=== PATIENT | male | born 1930 | race Two or more races ===

== ENCOUNTER 2019-06-15 16:29 | Inpatient (IN) | payer MEDICARE, MEDICAID ==
[~2019-06-15] VITALS: Ht 157.5 cm; Wt 60.3 kg
--- NOTE | 2019-06-15 16:39 | Emergency Room Report ---
History of Present Illness General Chief Complaint: Upper Respiratory Illness Source: Patient, EMS Present Illness HPI Disclaimer: Please note that this report is being documented using DRAGON technology. This can lead to erroneous entry secondary to incorrect interpretation by the dictating instrument. HPI: 88-year-old male history of dementia and CHF presents from longterm [facility] for evaluation of fever and shortness of breath. Has been febrile with low-grade temperatures for the past 2 days. He was given Tylenol prior to arrival. The patient is somewhat confused though oriented to self. He is complaining of chest congestion and tightness. Denies vomiting or diarrhea or abdominal pain. He was found saturating 89% with some labored breathing on EMS arrival. They put him on 2 L nasal cannula bring him to 94% with improvement in his respirations. He is full code PMH: CHF, dementia PSH: Reviewed Allergies: None listed Social Hx: None listed Allergies: Coded Allergies: No Known Allergies (Unverified , 06/15/19) Review of Systems All Other Systems: limited - Due to dementia Physical Exam General: Awake and somewhat confused, no acute distress HEENT: NC/AT. EOMI. Cardiovascular: RRR. S1 and S2 normal. No murmur appreciated Resp: Mild tachypnea, normal work of breathing. On 2 L nasal cannula. No cough Abdomen: Abdomen is soft, nondistended. Nontender Skin: Intact. No abrasions, laceration or rash over the exposed skin MSK: Normal tone and bulk. Moving all extremities. No obvious deformity. Neuro: Awake and somewhat confused. Poor historian Medical Decision Making Diagnostic Impression: Primary Impression: Suspected 2019 novel coronavirus infection Additional Impressions: Pneumonia Elevated troponin Elevated LFTs ER Course This an 88-year-old male presenting from [place] [id number] for evaluation of 2 days fever and shortness of breath. He was found hypoxic by EMS though improved on 2 L nasal cannula. His breathing is nonlabored at this time. Differential includes was not limited to viral syndrome, pneumonia, COVID-19, influenza, bronchitis, COPD exacerbation, CHF exacerbation, upper respiratory infection. Based on the patient's presenting signs, symptoms and physical exam findings, the patient has been screened and is suspected to have COVID-19. Will send COVID swab, blood cultures, start IV fluids, maintain patient on oxygen, send broad labs including cardiac enzymes and perform chest x-ray and EKG. Patient will be kept in isolation over concerns of COVID-19. Laboratory Tests Test 06/15/19 16:55 06/15/19 17:00 White Blood Count 8.2 K/UL (4.8-10.8) Red Blood Count 4.85 M/UL (4.70-6.10) Hemoglobin 14.9 G/DL (14.2-18.0) Hematocrit 45.5 % (42.0-52.0) Mean Corpuscular Volume 94 FL (80-99) Mean Corpuscular Hemoglobin 30.7 PG (27.0-31.0) Mean Corpuscular Hemoglobin Concent 32.7 G/DL (32.0-36.0) Red Cell Distribution Width 14.1 % (11.6-14.8) Platelet Count 233 K/UL (150-450) Mean Platelet Volume 6.3 FL (6.5-10.1) L Neutrophils (%) (Auto) 84.1 % (45.0-75.0) H Lymphocytes (%) (Auto) 12.1 % (20.0-45.0) L Monocytes (%) (Auto) 3.4 % (1.0-10.0) Eosinophils (%) (Auto) 0.0 % (0.0-3.0) Basophils (%) (Auto) 0.3 % (0.0-2.0) Sodium Level 140 MMOL/L (136-145) Potassium Level 3.6 MMOL/L (3.5-5.1) Chloride Level 105 MMOL/L (98-107) Carbon Dioxide Level 25 MMOL/L (21-32) Anion Gap 11 mmol/L (5-15) Blood Urea Nitrogen 18 mg/dL (7-18) Creatinine 1.0 MG/DL (0.55-1.30) Estimated Glomerular Filtration Rate > 60 mL/min (>60) Glucose Level 202 MG/DL (74-106) H Lactic Acid Level 3.10 mmol/L (0.4-2.0) H Calcium Level 8.2 MG/DL (8.5-10.1) L Total Bilirubin Pending Aspartate Amino Transferase (AST) Pending Alanine Aminotransferase (ALT) Pending Alkaline Phosphatase Pending Total Creatine Kinase Pending Creatine Kinase MB Pending Troponin I 0.152 ng/mL (0.000-0.056) Pro-B-Type Natriuretic Peptide Pending Total Protein Pending Albumin Pending Globulin Pending Arterial Blood pH 7.462 (7.350-7.450) Arterial Blood Partial Pressure CO2 34.7 mmHg (35.0-45.0) L Arterial Blood Partial Pressure O2 76.4 mmHg (75.0-100.0) Arterial Blood HCO3 24.2 mmol/L (22.0-26.0) Arterial Blood Oxygen Saturation 96.1 % (95-100) Arterial Blood Base Excess 1.0 (-2-2) Al Test Pending EKG Diagnostic Results EKG Time: 17:21 Rate: normal Rhythm: NSR ST Segments: no acute changes Other Impression Sinus rhythm, left axis deviation. Occasional PACs. T wave inversions, no ST segment changes Rhythm Strip Diag. Results Rhythm Strip Time: 17:21 EP Interpretation: yes Rate: 88 Rhythm: NSR, other - Occasional PAC Chest X-Ray Diagnostic Results Chest X-Ray Diagnostic Results : Chest X-Ray Ordered: Yes # of Views/Limited/Complete: 1 View Indication: Shortness of Breath EP Interpretation: Yes Interpretation: other - Consolidations in the left lower lobe may represent an early pneumonia. No effusion. Impression: Other - Possible pneumonia left lung Electronically Signed by: Electronically signed by Dr. Ric Alvarado Reevaluation Time: 17:38 Reevaluation Impression Chest x-ray concerning for possible left-sided pneumonia. Patient treated with ceftriaxone azithromycin. EKG shows nonspecific T wave changes and occasional PAC but no gross ST segment changes. Troponin slightly elevated as is lactic acid. Renal function within normal limits. Blood gas within normal limits. No respiratory distress. LFTs and alkaline phosphatase are elevated. Ultrasound of the abdomen is ordered and pending. Patient require admission. He will be kept in isolation for suspected COVID-19 infection. Will admit to his PMD, Dr. Malhotra. Disposition: ADMITTED INPATIENT Condition: Serious Ric Alvarado MD Jun 15, 2019 16:39
[2019-06-15] MEDS ORDERED: NAMENDA10 MG ORAL (16:42)
[2019-06-15] MEDS ORDERED: DOCUSATE SODIU100 MG ORAL (16:42)
[2019-06-15] MEDS ORDERED: DONEPEZIL HCL5 M2 ORAL (16:42)
--- NOTE | 2019-06-15 16:45 | NUR ---
ED Nurse Note: Pt was brought in by ambulance from [facility] d/t fever x 2 days and SOB started today. Per EMS pt was satting at 89% on RA; placed on 2 LPM via NC. Pt is AOx1, luxembourger in speaking noted with episodes of confusion. Per report pt, has hx of CHF and dementia. Pt's FULL CODE. Temp at triage was 99.8F. Placed on bed, hooked to keg raiser satting at 94% on 4LPM. Established IV site, obtained blood, COVID19 swabs, sent to labs. Safety measures met; initiated droplet isolation precautions. Will continue to monitor.
[2019-06-15 17:00] VITALS: BP 112/62
[2019-06-15 17:27] LABS: ANION GAP 11 mmol/L (5-15); BASOPHILS % (AUTO) 0.3 % (0.0-2.0); BLOOD UREA NITROGEN 18 mg/dL (7-18); CALCIUM 8.2 MG/DL (8.5-10.1); CARBON DIOXIDE 25 MMOL/L (21-32); CHLORIDE 105 MMOL/L (98-107); HEMATOCRIT 45.5 % (42.0-52.0); HEMOGLOBIN 14.9 G/DL (14.2-18.0); LYMPHOCYTES % (AUTO) 12.1 % (20.0-45.0); MEAN CORPUSCULAR VOLUME 94 FL (80-99); MONOCYTES % (AUTO) 3.4 % (1.0-10.0); NEUTROPHILS % (AUTO) 84.1 % (45.0-75.0); PLATELET COUNT 233 K/UL (150-450); POTASSIUM 3.6 MMOL/L (3.5-5.1); RED BLOOD COUNT 4.85 M/UL (4.70-6.10); RED CELL DISTRIBUTION WIDTH 14.1 % (11.6-14.8); SODIUM 140 MMOL/L (136-145); WHITE BLOOD COUNT 8.2 K/UL (4.8-10.8)
--- NOTE | 2019-06-15 17:36 | Diagnostic Imaging Report ---
Indication: Shortness of breath Technique: One view of the chest Comparison: none Findings: Reticular infiltrates are seen in the periphery of the right midlung and possibly in the retrocardiac region. Mildly prominent markings are seen in the right midlung periphery, of uncertain significance. The heart is borderline enlarged with a left ventricular hypertrophy configuration. The aorta is tortuous and ectatic. Impression: Peripheral reticular infiltrates in the left lung, nonspecific and likely inflammatory or chronic process among other Few prominent linear are seen peripherally in the right midlung, significance uncertain
[2019-06-15 17:43] LABS: ALANINE AMINOTRANSFERASE 129 U/L (12-78); ALBUMIN 2.3 G/DL (3.4-5.0); ALBUMIN/GLOBULIN RATIO 0.4 (1.0-2.7); ALKALINE PHOSPHATASE 125 U/L (46-116); ASPARTATE AMINO TRANSFERASE 171 U/L (15-37); BILIRUBIN,TOTAL 0.5 MG/DL (0.2-1.0); CREATINE KINASE 460 U/L (26-308)
[2019-06-15] MEDS ORDERED: cefTRIAXone 1 GM in NS 55 ML IVPB ONE (18:00)
[2019-06-15] MEDS ORDERED: Azithromycin 500 MG in NS 275 ML IV ONE (18:00)
--- NOTE | 2019-06-15 18:15 | NUR ---
ED Nurse Note: Unable to obtain urine specimen via straight cath nor verdugo cath at this time; Dr. Alvarado aware.
--- NOTE | 2019-06-15 18:20 | NUR ---
ED Nurse Note: Rectal temp at 98.7F.
--- NOTE | 2019-06-15 18:25 | NUR ---
ED Nurse Note: Initiated skin assessment, sacral area, bilateral heels; upper and lower extremities clean and intact, no pressure injuries/redness noted.
--- NOTE | 2019-06-15 18:30 | NUR ---
ED Nurse Note: MRSA, CRE/VRE swabs & LACTIC REFLEX sent.
[2019-06-15 18:52] VITALS: BP 148/100
--- NOTE | 2019-06-15 19:00 | NUR ---
ED Nurse Note: Hand off given to MANOLO Chun for continuity of care.
--- NOTE | 2019-06-15 19:13 | NUR ---
ED Nurse Note: Received report from MANOLO Dela Cruz. Patient resting in bed in stable condition.
[2019-06-15 19:18] VITALS: BP 123/78
--- NOTE | 2019-06-15 19:20 | NUR ---
ED Nurse Note: ERMD aware of two previous attempts from previous shift to collect urine via urinary catheter unsuccessful.
--- NOTE | 2019-06-15 21:08 | Pulmonology Progress Note ---
Assessment/Plan Assessment/Plan Pulmonary Consultation HPI: Patient is a 88-year-old male history of Dementia, Congestive Heart Failure , admitted from [facility] facility with Pneumonia, R/o COVID 19, noted to have fever and shortness of breath, chest congestion and tightness for 2 days. Noted to be confused in the ED. Has been febrile with low-grade temperatures for the past 2 days. Denies vomiting or diarrhea or abdominal pain. O2 saturation improved on 2 L to 94% (88% RA). PMH: Dementia, Congestive Heart Failure Social Hx: Shelter Resident FHx: NC Allergies: No Known Allergies All Other Systems: limited - AMS Physical Exam Vital signs noted General: Awake and somewhat confused, no acute distress HEENT: NC/AT. EOMI. Cardiovascular: RRR. S1 and S2 normal. No murmur appreciated Resp: Mild tachypnea, normal work of breathing. On 2 L nasal cannula. No cough Abdomen: Abdomen is soft, nondistended. Nontender Skin: Intact. No abrasions, laceration or rash noted MSK: Normal tone and bulk. Moving all extremities. No obvious deformity. Neuro: Awake and somewhat confused. Poor historian. No focal signs Impression: Pneumonia Suspected 2019 novel coronavirus infection Elevated troponin Elevated LFTs Lymphopenia Dementia Congestive Heart Failure Shelter Resident Plan Continue IV Ceftriaxone and Azithromycin O2 PRN Albuterol MDI PRN PPX - Lovenox ASA Monitor labs Add Hydroxychloroquine if COVID positive and cleared by Cardiology Monitor cultures/viral studies Ultrasound of the abdomen pending. Isolation for suspected COVID-19 infection Laboratory Tests Test 06/15/19 16:55 06/15/19 17:00 White Blood Count 8.2 K/UL (4.8-10.8) Red Blood Count 4.85 M/UL (4.70-6.10) Hemoglobin 14.9 G/DL (14.2-18.0) Hematocrit 45.5 % (42.0-52.0) Mean Corpuscular Volume 94 FL (80-99) Mean Corpuscular Hemoglobin 30.7 PG (27.0-31.0) Mean Corpuscular Hemoglobin Concent 32.7 G/DL (32.0-36.0) Red Cell Distribution Width 14.1 % (11.6-14.8) Platelet Count 233 K/UL (150-450) Mean Platelet Volume 6.3 FL (6.5-10.1) L Neutrophils (%) (Auto) 84.1 % (45.0-75.0) H Lymphocytes (%) (Auto) 12.1 % (20.0-45.0) L Monocytes (%) (Auto) 3.4 % (1.0-10.0) Eosinophils (%) (Auto) 0.0 % (0.0-3.0) Basophils (%) (Auto) 0.3 % (0.0-2.0) Sodium Level 140 MMOL/L (136-145) Potassium Level 3.6 MMOL/L (3.5-5.1) Chloride Level 105 MMOL/L (98-107) Carbon Dioxide Level 25 MMOL/L (21-32) Anion Gap 11 mmol/L (5-15) Blood Urea Nitrogen 18 mg/dL (7-18) Creatinine 1.0 MG/DL (0.55-1.30) Estimated Glomerular Filtration Rate > 60 mL/min (>60) Glucose Level 202 MG/DL (74-106) H Lactic Acid Level 3.10 mmol/L (0.4-2.0) H Calcium Level 8.2 MG/DL (8.5-10.1) L Total Bilirubin Pending Aspartate Amino Transferase (AST) Pending Alanine Aminotransferase (ALT) Pending Alkaline Phosphatase Pending Total Creatine Kinase Pending Creatine Kinase MB Pending Troponin I 0.152 ng/mL (0.000-0.056) Pro-B-Type Natriuretic Peptide Pending Total Protein Pending Albumin Pending Globulin Pending Arterial Blood pH 7.462 (7.350-7.450) Arterial Blood Partial Pressure CO2 34.7 mmHg (35.0-45.0) L Arterial Blood Partial Pressure O2 76.4 mmHg (75.0-100.0) Arterial Blood HCO3 24.2 mmol/L (22.0-26.0) Arterial Blood Oxygen Saturation 96.1 % (95-100) Arterial Blood Base Excess 1.0 (-2-2) Al Test Pending EKG Rate: normal Rhythm: NSR ST Segments: no acute changes Sinus rhythm, left axis deviation. Occasional PACs. T wave inversions, no ST segment changes Chest X-Ray: Consolidations in the left lower lobe may represent an early pneumonia. No effusion. . Subjective ROS Limited/Unobtainable: No Respiratory: Reports: shortness of breath Allergies: Coded Allergies: No Known Allergies (Unverified , 06/15/19) Objective Last 24 Hour Vital Signs Date Time Temp Pulse Resp B/P (MAP) Pulse Ox O2 Delivery O2 Flow Rate FiO2 06/15/19 19:18 82 28 123/78 100 Nasal Cannula 3.0 06/15/19 18:52 98.7 84 27 148/100 96 Nasal Cannula 3.0 06/15/19 17:00 99.9 62 29 112/62 95 Nasal Cannula 2.0 06/15/19 17:00 76 29 Nasal Cannula 2.0 06/15/19 16:32 99.9 76 29 112/62 (79) 95 Nasal Cannula 2.0 Microbiology Date/Time Source Procedure Growth Status 06/15/19 18:20 Rectum Received Laboratory Tests 06/15/19 16:55: White Blood Count 8.2, Red Blood Count 4.85, Hemoglobin 14.9, Hematocrit 45.5, Mean Corpuscular Volume 94, Mean Corpuscular Hemoglobin 30.7, Mean Corpuscular Hemoglobin Concent 32.7, Red Cell Distribution Width 14.1, Platelet Count 233, Mean Platelet Volume 6.3L, Neutrophils (%) (Auto) 84.1H, Lymphocytes (%) (Auto) 12.1L, Monocytes (%) (Auto) 3.4, Eosinophils (%) (Auto) 0.0, Basophils (%) (Auto ) 0.3, Sodium Level 140, Potassium Level 3.6, Chloride Level 105, Carbon Dioxide Level 25, Anion Gap 11, Blood Urea Nitrogen 18, Creatinine 1.0, Estimat Glomerular Filtration Rate > 60, Glucose Level 202H, Lactic Acid Level 3.10H, Calcium Level 8.2L, Total Bilirubin 0.5, Aspartate Amino Transf (AST/SGOT) 171H , Alanine Aminotransferase (ALT/SGPT) 129H, Alkaline Phosphatase 125H, Total Creatine Kinase 460H, Creatine Kinase MB 1.0, Creatine Kinase MB Relative Index 0.2, Troponin I 0.152H, Pro-B-Type Natriuretic Peptide 1467H, Total Protein 7.9 , Albumin 2.3L, Globulin 5.6, Albumin/Globulin Ratio 0.4L, Lipase 215 06/15/19 17:00: Arterial Blood pH 7.462H, Arterial Blood Partial Pressure CO2 34.7L, Arterial Blood Partial Pressure O2 76.4, Arterial Blood HCO3 24.2, Arterial Blood Oxygen Saturation 96.1, Arterial Blood Base Excess 1.0, Al Test [Pending] 06/15/19 18:30: Lactic Acid Level 2.80H Andrew Diaz MD Jun 15, 2019 21:08
--- NOTE | 2019-06-15 22:03 | NUR ---
ED Nurse Note: Ultrasound at bedside.
--- NOTE | 2019-06-15 22:53 | Diagnostic Imaging Report ---
EXAM: US Abdomen Limited, Right Upper Quadrant CLINICAL HISTORY: ABD PAIN TECHNIQUE: Real-time ultrasound of the right upper quadrant with image documentation. COMPARISON: No relevant prior studies available. FINDINGS: Liver: Unremarkable. No mass. Gallbladder: The gallbladder is filled with stones. No mucosal thickening or pericholecystic free fluid. Negative Ignacio sign. Common bile duct: The common bile duct measures 4 mm. No stones. No dilation. Pancreas: The pancreas is largely obscured by bowel gas. Right kidney: Unremarkable. No stones. No solid mass. No hydronephrosis. IMPRESSION: The gallbladder is filled with stones. Negative Ignacio's sign suggests against acute cholecystitis.
--- NOTE | 2019-06-16 00:10 | NUR ---
ED Nurse Note: Report given to MANOLO Vela in telemetry.
[2019-06-16] MEDS ORDERED: Acetaminophen 500mg (ES) tab ORAL PRN (00:15)
--- NOTE | 2019-06-16 00:28 | NUR ---
TRANSFER TO FLOOR: Patient transferred to telemetry as ordered, per ERMD. Report given to MANOLO Vela. Patient has no belongings. Patient transferred to telemetry floor via gurney on ACLS protocol with monitoring engineer accompanied by 1 RN and wheel alignment technician in stable condition.
[2019-06-16 00:35] VITALS: BP 148/74
--- NOTE | 2019-06-16 00:45 | NUR ---
NURSE NOTES: Pt received from MANOLO Chun via [place] from ER alert and oriented to name only, primarily Georgian-speaking. On 2L NC, saturating at 96% with no acute s/s of distress noted. Skin intact, no signs of pressure injury noted. IV site asymptomatic and patent on L wrist 20g, saline lock. No belongings noted with patient.
--- NOTE | 2019-06-16 01:15 | NUR ---
NURSE NOTES: RN received phone call from Dr. Diaz for orders. Per ER, patient was in soft bilateral wrist restraints due to patient attempting to pull lines. RN to assess patient for need for restraints on unit. Per Dr. Diaz, page if need for restraints. - Ceftriaxone 1 gm IVPB daily - Azithromycin 500 mg IVPB daily - albuterol MDI 2 puffs q6h PRN for SOB - Lovenox 40 mg SQ daily for DVT proph - Aspirin 81 mg PO daily - Place on droplet and contact iso for rule out COVID - Speech Eval in AM - D5NS a 50 ml/hr - Maintain O2 between 90-96% - Place on aspiration precautions - Tylenol 650 mg q6h for mild pain or fever - Zofran 4 mg q6h PRN for n/v Addendum: 06/16/19 at 0310 by Reggie Peralta RN Per Dr. Diaz, continue home meds - Donepezil 5 mg PO daily, Namenda 10 mg PO daily, and Colace 100 mg PO daily.
[2019-06-16] MEDS ORDERED: Albuterol 90mcg Inhaler 8gm INH PRN (03:00)
[2019-06-16 04:00] VITALS: BP 143/76
[2019-06-16] MEDS: D5NS 1,000 ML IV SCH (04:43)
--- NOTE | 2019-06-16 05:09 | NUR ---
NURSE NOTES: Patient found attempting to pull IV line on left arm and pulling at seamless tube roller with leg dangling off of bed during rounds. Informed Dr. Diaz who agreed with order for soft bilateral wrist restraints. Will continue to monitor for patient safety.
[2019-06-16 05:26] LABS: BASOPHILS % (AUTO) 0.3 % (0.0-2.0); HEMATOCRIT 42.3 % (42.0-52.0); HEMOGLOBIN 14.3 G/DL (14.2-18.0); LYMPHOCYTES % (AUTO) 15.2 % (20.0-45.0); MEAN CORPUSCULAR VOLUME 90 FL (80-99); MONOCYTES % (AUTO) 2.3 % (1.0-10.0); NEUTROPHILS % (AUTO) 82.1 % (45.0-75.0); PLATELET COUNT 249 K/UL (150-450); RED CELL DISTRIBUTION WIDTH 12.6 % (11.6-14.8); WHITE BLOOD COUNT 10.5 K/UL (4.8-10.8)
[2019-06-16 05:46] LABS: ANION GAP 11 mmol/L (5-15); BLOOD UREA NITROGEN 15 mg/dL (7-18); CARBON DIOXIDE 27 MMOL/L (21-32); CHLORIDE 108 MMOL/L (98-107); CREATININE 0.9 MG/DL (0.55-1.30); POTASSIUM 3.4 MMOL/L (3.5-5.1); SODIUM 146 MMOL/L (136-145)
--- NOTE | 2019-06-16 07:18 | NUR ---
HAND-OFF: Report given to MANOLO Chin. Plan of care endorsed.
--- NOTE | 2019-06-16 07:20 | NUR ---
NURSE NOTES: Received report from Reggie/RN, Patient is awake, lying semi-garcia, resting comfortably. On 2L Nasal canula, No distress/SOB noted. vehicle monitor technician in place. IV on Left FA, Saline locked, patent, and asymptomatic. Bed in low position and locked, Bad alarm engaged, side- rails up x3, Call light within reach, Encouraged to use call light when needed. Will continue plan of care.
[2019-06-16 08:00] VITALS: BP 118/70
[2019-06-16] MEDS: Aspirin Baby 81mg ORAL SCH (09:35)
[2019-06-16] MEDS: Memantine 10mg tab ORAL SCH ×2 (09:35→18:14)
[2019-06-16] MEDS: Donepezil 5mg Tab ORAL SCH (09:36)
[2019-06-16] MEDS: Docusate 100mg cap ORAL SCH (09:36)
[2019-06-16] MEDS: Enoxaparin 40mg Inj SUBQ SCH (09:37)
--- NOTE | 2019-06-16 09:37 | NUR ---
CASE MANAGEMENT: INITIAL REVIEW 88 YO M MICHELL FROM [facility] CC: MILA SATTING 89% ON RA PMHx: DEMENTIA. CHF. SI: HYPOXIA T 99.9 HR 76 RR 29 B/P 112/62 SATS 95% ON 2L/NC LABS: GLU 202 CA 8.2 AST 171 ALT 129 ALP 125 TOTAL CK 460 BNP 1467 ABGs: PH 7.462 PCO2 34.7 IS: CXR Impression: Peripheral reticular infiltrates in the left lung, nonspecific and likely inflammatory or chronic process among other. Few prominent linear are seen peripherally in the right midlung, significance uncertain ABD US IMPRESSION: The gallbladder is filled with stones. Negative Ignacio's sign suggests against acute cholecystitis. EKG Sinus rhythm, left axis deviation. Occasional PACs. T wave inversions, no ST segment changes. PATIENT ADMITTED TO TELE 06/15/2019 @ 4827 DCP: [facility] PLAN OF CARE: MYCHAL LYNN OBTAINED ISOLATION PRECAUTIONS ST EVAL NON VIOLENT RESTRAINTS Addendum: 06/16/19 at 0947 by Zofia Spann CM INTERQUAL MET
--- NOTE | 2019-06-16 10:57 | NUR ---
ST NOTES: REFERRED FOR SWALLOW EVAL BY DR PINEDA (PRIMARY DR BUSH), SEE REPORT. DYSPHAGIA AND ASPIRATION RISK FACTORS FOR THIS 88 Y.O. ALBANIAN-SPEAKING (? COUNTRY) MALE: ACUTE ISSUES: R/O COVID 19, PNA (L-SIDED ONE NOTE CXR SAID INFILTRATES RIGHT MID LUNG), CHEST CONGESTION/PAIN FEVER, DESATURATION TO 88% PRIOR TO ADMIT NOW ON 2 LITERS 02 NC (RESP RATE 20 AND SP02 96%) AND HAS USE OF ACCESSORY MUSCLES AND SWALLOW RESPIRATIONS, HIGH BP RELEVANT MEDS NOW ALBUTEROL H/O DEMENTIA (ON ARICEPT/NAMENDA NOW D/C THESE MEDS SNF AND STARTED SEROQUEL), PSYCH ISSUES (MOOD D/O, MDD AND REFUSING MED TX), SUBSTANCE ABUSE, CHF. POLST OK TUBE FEEDINGS LT IF NEEDS, AT SNF ON A REGULAR DIET TYPE AND TEXTURE AND THIN LIQUIDS. NOW NPO EXCEPT MEDS AND ICE CHIPS. PER MANOLO COFFMAN, PATIENT REFUSED CRUSHED MEDS WITH APPLESAUCE. PER CHRIS GONZALEZ, PT REFUSED PO TRIALS EVEN WHEN SHE SPOKE ALBANIAN TO PATIENT. PATIENT IS ALERT BUT POOR FOLLOWING ORAL COMMANDS. HAS MOST DENTITION, SOME MISSING NEEDS ORAL CARE. SPEECH IS DYSARTHRIC AT TIMES (LESS PRECISE AND VOICE IS HOARSE) BUT CAN EXPRESS SOME NEEDS INTELLIGIBLY IN ALBANIAN. CONFUSED, NO RESPONSE OR UNRELIABLE WITH SIMPLE YES/NO QUESTIONS. 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 GIVEN THIN LIQUIDS VIA STRAW/CUP PATIENT REFUSED TRIAL. TOOK TSP X 5 WITH MUCH ENCOURAGEMENT AND ONLY WHEN OFFERED JUICE (REFUSED WATER). SWALLOWED AFTER 2 SECONDS, NO COUGH NO OVERT ASPIRATION. REFUSED NECTAR THICK LIQUID TRIALS GIVEN PUDDING INITIALLY REFUSED, LATER ACCEPTED TSP (X10) WITH MUCH ENCOURAGEMENT. SWALLOWED AFTER CHEWING BOLUS UNNECESSARILY FOR 10 SECONDS, SWALLOWED WITH FAIR HYOLARYNGEAL EXCURSION, NO ORAL RESIDUE, NO OVERT ASPIRATION. HAS SILENT ASPIRATION RISK DUE TO DEMENTIA/NEURO DX AND HAS A CURRENT PNA. ASP RISK ALSO SINCE HE IS DEPENDENT ON SOMEONE TO FEED HIM (HAS WRIST RESTRAINTS) ASP RISK DUE TO PRIOR DESAT TO 88% PRIOR TO ADMIT, NOW RESP RATE GOOD 20 BPM AND SP02 GOOD 96% ON 2 LITERS NC DURING PO. USES ACCESSORY MUSCLES AND HAS SHALLOW RESPIRATIONS, WOULD NOT COUGH TO COMMAND AND DID NOT OBSERVE SPON COUGH BUT VOICE IS HOARSE ? WHY. RISK FOR POOR TO NO INTAKE DUE TO REFUSING PO AND SLOW INTAKE. RECOMMENDATIONS: CONSIDER MOD BARIUM SWALLOW STUDY WHEN R/O COVID 19 TO FURTHER ASSESS SWALLOW, DETERMINE SILENT ASP RISK, AND ATTEMPT TRIAL TX. IF PO GIVEN FOR QUALITY OF LIFE, CONSIDER LIQUIFIED PUREED LIKE NECTAR THICK LIQUIDS TSP ONLY OK TO HAVE THIN LIQUIDS TSP ONLY (REFUSED THICKENED LIQUIDS) WITH OTHER ASPIRATION PRECAUTIONS AND ONE TO ONE FEEDING. SEND HIGH CARMINE SUP AND DIET TYPE PER RD (WAS ON REGULAR TYPE DIET AT [facility]). SKILLED DYSPHAGIA MANAGEMENT AND TX AND COG-COM EVAL/TX EDUCATED/TRAINED RN/PICCOLOIST IN POSTED ASPIRATION PRECAUTIONS. CONSIDER ENT TO CHECK VOCAL FOLDS (NOT IP ENT NOT COMING IN FOR NONURGENT PROCEDURES) TRY TO CHECK FOR SMOKING HX (PT DOES NOT ANSWER QUESTION NOW)
[2019-06-16 12:00] VITALS: BP 120/69
[2019-06-16 16:00] VITALS: BP 123/70
--- NOTE | 2019-06-16 17:15 | Consultation ---
DATE OF CONSULTATION: 06/16/2019 CONSULTING PHYSICIAN: Perry Quiroga M.D. CHIEF COMPLAINT: Abnormal liver function tests. HISTORY OF PRESENT ILLNESS: Most of history per chart. An 88-year-old patient coming from [facility] with fever and shortness of breath. Patient with COVID, currently in isolation. Patient had abnormal liver function tests, so GI consult requested for evaluation. PAST MEDICAL HISTORY: 1. History of dementia. 2. CHF. 3. Hypertension. 4. BPH. 5. Constipation. ALLERGIES: No known drug allergies. MEDICATIONS: Please see medication reconciliation list. SOCIAL HISTORY: Patient lives in [facility]. No history of tobacco, alcohol, or drug abuse. PAST SURGICAL HISTORY: Unknown. FAMILY HISTORY: Noncontributory. REVIEW OF SYSTEMS: Unable to obtain. PHYSICAL EXAMINATION: VITAL SIGNS: Temperature 99.2, pulse 87, respirations 20, blood pressure is 143/76. HEENT: Normocephalic and atraumatic. Sclerae anicteric. NECK: Supple. No evidence of obvious lymphadenopathy. CARDIOVASCULAR: Regular rate and rhythm. Plus S1 and S2. LUNGS: Decreased breath sounds bilaterally and diffusely on supine exam. ABDOMEN: Soft, nontender. No rebound. No guarding. No peritoneal sign. EXTREMITIES: No cyanosis. No clubbing. No edema. LABORATORY DATA: White count is 10, hemoglobin 14, hematocrit 42, platelet count is 249. Chem-7 sodium 146, potassium 3.4, BUN is 15, creatinine 0.9. Troponin mildly elevated at 0.152. AST 171, ALT of 129, alkaline phosphatase of 125, bilirubin of 0.5. IMAGING STUDIES: Abdominal ultrasound showed multiple gallstones, but no common bile duct dilatation. No cholecystitis. ASSESSMENT AND PLAN: An 88-year-old patient with CHF, admitted to hospital with shortness of breath, question of COVID positive with abnormal liver function tests. Abnormal liver function tests can be secondary to either COVID infection. Other possibility would be CHF exacerbation causing hepatic congestion. Other possibility would be given elevated troponin, acute IN causing transaminitis. I doubt that patient has acute cholecystitis since that patient does not have any white count nor on the abdominal ultrasound has a gallbladder wall thickening. Our plan will be to repeat the liver function tests for tomorrow. Order hepatitis panel. Antibiotics per ID. Follow up Cardiology recommendation. We will follow on daily basis and make further recommendation as needed. I want to thank Dr. Malhotra for this kind referral. Perry Quiroga M.D. DR: CHRISTIANO JOB#: [id number] CC: Gorge Malhotra M.D.; Fax#: [phone]
[2019-06-16] MEDS: Azithromycin 500 MG in D5W 275 ML IV SCH (18:14)
--- NOTE | 2019-06-16 19:50 | NUR ---
NURSE NOTES: Received report from MANOLO Schaeffer. Patient is on bed, awake, alert and oriented x 1-2. Patient is on regular diet, liquid pureed like soup, nectar thick and ensure TID. bus driver/monitor is on shows sinus rhythm and no signs and symptoms of respiratory distress noted at this time. Patient is connected to 2Lpm via nasal cannula, with no complaints made at the moment. IV site is on left forearm g-20 running fluid of D5NSS @ 50 cc/hour that is intact and asymptomatic. Patient is bedrest with bilateral soft wrist restraints. Safety measures are in placed, call light and bedside table within reach, side rails up x 2, bed alarm is on. Bed in low and locked position. Instructed to call for any assistance needed. Will continue plan of care.
--- NOTE | 2019-06-16 19:51 | NUR ---
HAND-OFF: Report given to Meri/RN, Patient is in stable condition.Endorsed plan of care.
[2019-06-16 20:00] VITALS: BP 149/78
[2019-06-16] MEDS: cefTRIAXone 1 GM in D5W 55 ML IVPB SCH (20:21)
--- NOTE | 2019-06-16 21:49 | Cardiology Progress Note ---
Assessment/Plan Assessment/Plan The patient is seen and examined, full consult note is dictated. Objective Last 24 Hour Vital Signs Date Time Temp Pulse Resp B/P (MAP) Pulse Ox O2 Delivery O2 Flow Rate FiO2 06/16/19 16:00 80 06/16/19 16:00 96.7 88 18 123/70 (87) 98 06/16/19 12:00 98.6 67 19 120/69 (86) 98 06/16/19 12:00 71 06/16/19 09:00 Nasal Cannula 2.0 06/16/19 08:00 72 06/16/19 08:00 96.6 80 18 118/70 (86) 96 06/16/19 04:00 99.2 87 20 143/76 (98) 96 06/16/19 04:00 71 06/16/19 00:58 Nasal Cannula 2.0 06/16/19 00:43 92 06/16/19 00:38 98.7 73 32 138/64 100 Nasal Cannula 3.0 06/16/19 00:35 98.8 78 20 148/74 (98) 96 Intake and Output 06/15/19 06/16/19 19:00 07:00 Intake Total 1330 ml Balance 1330 ml IV Total 1330 ml # Voids 1 Laboratory Tests Test 06/16/19 04:00 White Blood Count 10.5 K/UL (4.8-10.8) Red Blood Count 4.70 M/UL (4.70-6.10) Hemoglobin 14.3 G/DL (14.2-18.0) Hematocrit 42.3 % (42.0-52.0) Mean Corpuscular Volume 90 FL (80-99) Mean Corpuscular Hemoglobin 30.5 PG (27.0-31.0) Mean Corpuscular Hemoglobin Concent 33.8 G/DL (32.0-36.0) Red Cell Distribution Width 12.6 % (11.6-14.8) Platelet Count 249 K/UL (150-450) Mean Platelet Volume 5.9 FL (6.5-10.1) L Neutrophils (%) (Auto) 82.1 % (45.0-75.0) H Lymphocytes (%) (Auto) 15.2 % (20.0-45.0) L Monocytes (%) (Auto) 2.3 % (1.0-10.0) Eosinophils (%) (Auto) 0.0 % (0.0-3.0) Basophils (%) (Auto) 0.3 % (0.0-2.0) Sodium Level 146 MMOL/L (136-145) H Potassium Level 3.4 MMOL/L (3.5-5.1) L Chloride Level 108 MMOL/L (98-107) H Carbon Dioxide Level 27 MMOL/L (21-32) Anion Gap 11 mmol/L (5-15) Blood Urea Nitrogen 15 mg/dL (7-18) Creatinine 0.9 MG/DL (0.55-1.30) Estimat Glomerular Filtration Rate > 60 mL/min (>60) Glucose Level 121 MG/DL (74-106) H Calcium Level 8.0 MG/DL (8.5-10.1) L Microbiology Date/Time Source Procedure Growth Status 06/15/19 18:20 Rectum Received Rolf Moreno MD Jun 16, 2019 21:49
--- NOTE | 2019-06-16 22:30 | NUR ---
NURSE NOTES: Relayed result of Covid test to Dr. Moshe Betancourt, no orders was made yet.
--- NOTE | 2019-06-16 23:30 | NUR ---
NURSE NOTES: Troponin result 0.[address] Moreno thru text, no orders was made. Dr. Moreno states to continue present management.
[2019-06-17] VITALS: BP 141/83
--- NOTE | 2019-06-17 00:08 | Pulmonology Progress Note ---
Assessment/Plan Assessment/Plan Pulmonary Progress Note HPI: Patient is a 88-year-old male history of Dementia, Congestive Heart Failure , admitted from residential facility with Pneumonia, R/o COVID 19, noted to have fever and shortness of breath, chest congestion and tightness for 2 days. Noted to be confused in the ED. Has been febrile with low-grade temperatures for the past 2 days. Denies vomiting or diarrhea or abdominal pain. O2 saturation improved on 2 L to 94% (88% RA). Patient seen on 06/16/2019 PMH: Dementia, Congestive Heart Failure Social Hx: Penitentiary Resident FHx: [place] Allergies: No Known Allergies All Other Systems: limited - AMS Physical Exam Vital signs noted General: Awake and somewhat confused, no acute distress HEENT: NC/AT. EOMI. Cardiovascular: RRR. S1 and S2 normal. No murmur appreciated Resp: Mild tachypnea, normal work of breathing. On 2 L nasal cannula. No cough Abdomen: Abdomen is soft, nondistended. Nontender Skin: Intact. No abrasions, laceration or rash noted MSK: Normal tone and bulk. Moving all extremities. No obvious deformity. Neuro: Awake and somewhat confused. Poor historian. No focal signs Impression: Pneumonia Suspected 2019 novel coronavirus infection Elevated troponin Elevated LFTs Lymphopenia Dementia Congestive Heart Failure Penitentiary Resident Plan Continue IV Ceftriaxone and Azithromycin O2 PRN Albuterol MDI PRN PPX - Lovenox ASA Monitor labs Add Hydroxychloroquine if COVID positive and cleared by Cardiology Monitor cultures/viral studies Ultrasound of the abdomen pending. Isolation for suspected COVID-19 infection Laboratory Tests Test 06/15/19 16:55 06/15/19 17:00 White Blood Count 8.2 K/UL (4.8-10.8) Red Blood Count 4.85 M/UL (4.70-6.10) Hemoglobin 14.9 G/DL (14.2-18.0) Hematocrit 45.5 % (42.0-52.0) Mean Corpuscular Volume 94 FL (80-99) Mean Corpuscular Hemoglobin 30.7 PG (27.0-31.0) Mean Corpuscular Hemoglobin Concent 32.7 G/DL (32.0-36.0) Red Cell Distribution Width 14.1 % (11.6-14.8) Platelet Count 233 K/UL (150-450) Mean Platelet Volume 6.3 FL (6.5-10.1) L Neutrophils (%) (Auto) 84.1 % (45.0-75.0) H Lymphocytes (%) (Auto) 12.1 % (20.0-45.0) L Monocytes (%) (Auto) 3.4 % (1.0-10.0) Eosinophils (%) (Auto) 0.0 % (0.0-3.0) Basophils (%) (Auto) 0.3 % (0.0-2.0) Sodium Level 140 MMOL/L (136-145) Potassium Level 3.6 MMOL/L (3.5-5.1) Chloride Level 105 MMOL/L (98-107) Carbon Dioxide Level 25 MMOL/L (21-32) Anion Gap 11 mmol/L (5-15) Blood Urea Nitrogen 18 mg/dL (7-18) Creatinine 1.0 MG/DL (0.55-1.30) Estimated Glomerular Filtration Rate > 60 mL/min (>60) Glucose Level 202 MG/DL (74-106) H Lactic Acid Level 3.10 mmol/L (0.4-2.0) H Calcium Level 8.2 MG/DL (8.5-10.1) L Total Bilirubin Pending Aspartate Amino Transferase (AST) Pending Alanine Aminotransferase (ALT) Pending Alkaline Phosphatase Pending Total Creatine Kinase Pending Creatine Kinase MB Pending Troponin I 0.152 ng/mL (0.000-0.056) Pro-B-Type Natriuretic Peptide Pending Total Protein Pending Albumin Pending Globulin Pending Arterial Blood pH 7.462 (7.350-7.450) Arterial Blood Partial Pressure CO2 34.7 mmHg (35.0-45.0) L Arterial Blood Partial Pressure O2 76.4 mmHg (75.0-100.0) Arterial Blood HCO3 24.2 mmol/L (22.0-26.0) Arterial Blood Oxygen Saturation 96.1 % (95-100) Arterial Blood Base Excess 1.0 (-2-2) Al Test Pending EKG Rate: normal Rhythm: NSR ST Segments: no acute changes Sinus rhythm, left axis deviation. Occasional PACs. T wave inversions, no ST segment changes Chest X-Ray: Consolidations in the left lower lobe may represent an early pneumonia. No effusion. . Subjective ROS Limited/Unobtainable: No Allergies: Coded Allergies: No Known Allergies (Unverified , 06/15/19) Objective Last 24 Hour Vital Signs Date Time Temp Pulse Resp B/P (MAP) Pulse Ox O2 Delivery O2 Flow Rate FiO2 06/16/19 20:00 70 06/16/19 20:00 97.9 94 20 149/78 (101) 94 06/16/19 16:00 80 06/16/19 16:00 96.7 88 18 123/70 (87) 98 06/16/19 12:00 98.6 67 19 120/69 (86) 98 06/16/19 12:00 71 06/16/19 09:00 Nasal Cannula 2.0 06/16/19 08:00 72 06/16/19 08:00 96.6 80 18 118/70 (86) 96 06/16/19 04:00 99.2 87 20 143/76 (98) 96 06/16/19 04:00 71 06/16/19 00:58 Nasal Cannula 2.0 06/16/19 00:43 92 06/16/19 00:38 98.7 73 32 138/64 100 Nasal Cannula 3.0 06/16/19 00:35 98.8 78 20 148/74 (98) 96 Intake and Output 06/16/19 06/17/19 19:00 07:00 Intake Total 120 ml Output Total 1800 ml Balance -1680 ml Intake Oral 120 ml Output Urine Total 1800 ml # Voids 3 Microbiology Date/Time Source Procedure Growth Status 06/15/19 18:20 Rectum Received Laboratory Tests 06/16/19 04:00: White Blood Count 10.5, Red Blood Count 4.70, Hemoglobin 14.3, Hematocrit 42.3, Mean Corpuscular Volume 90, Mean Corpuscular Hemoglobin 30.5, Mean Corpuscular Hemoglobin Concent 33.8, Red Cell Distribution Width 12.6, Platelet Count 249, Mean Platelet Volume 5.9L, Neutrophils (%) (Auto) 82.1H, Lymphocytes (%) (Auto) 15.2L, Monocytes (%) (Auto) 2.3, Eosinophils (%) (Auto) 0.0, Basophils (%) (Auto ) 0.3, Sodium Level 146H, Potassium Level 3.4L, Chloride Level 108H, Carbon Dioxide Level 27, Anion Gap 11, Blood Urea Nitrogen 15, Creatinine 0.9, Estimat Glomerular Filtration Rate > 60, Glucose Level 121H, Calcium Level 8.0L 06/16/19 22:25: Troponin I 0.122H Current Medications Medications (Trade) Dose Ordered Sig/Kaylan Route PRN Reason Start Time Stop Time Status Last Admin Dose Admin Acetaminophen (Tylenol) 500 mg Q6H PRN ORAL For Pain 06/16/19 00:15 07/16/19 00:14 Acetaminophen (Tylenol) 650 mg Q6H PRN ORAL For Headache 06/16/19 03:00 07/16/19 02:59 Albuterol Sulfate (Proventil MDI) 2 puff Q6H PRN INH Shortness of Breath 06/16/19 03:00 09/14/19 02:59 Aspirin (ASA) 81 mg DAILY ORAL 06/16/19 09:00 07/31/19 08:59 06/16/19 09:35 Azithromycin 500 mg/Dextrose 275 ml @ 275 mls/hr Q24HRS IV 06/16/19 18:00 06/22/19 18:59 06/16/19 18:14 Ceftriaxone Sodium 1 gm/ Dextrose 55 ml @ 110 mls/hr Q24H IVPB 06/16/19 19:00 06/23/19 18:59 06/16/19 20:21 Dextrose/Sodium Chloride 1,000 ml @ 50 mls/hr Q20H IV 06/16/19 04:00 07/16/19 03:59 06/16/19 04:43 Docusate Sodium (Colace) 100 mg DAILY ORAL 06/16/19 09:00 07/16/19 08:59 06/16/19 09:36 Donepezil HCl (Aricept) 5 mg DAILY ORAL 06/16/19 09:00 07/16/19 08:59 06/16/19 09:36 Enoxaparin Sodium (Lovenox) 40 mg DAILY SUBQ 06/16/19 09:00 09/14/19 08:59 06/16/19 09:37 Furosemide (Lasix) 20 mg DAILY IV 06/16/19 22:00 07/16/19 21:59 06/16/19 22:12 Memantine (Namenda) 10 mg TWICE A DAY ORAL 06/16/19 09:00 07/16/19 08:59 06/16/19 18:14 Ondansetron HCl (Zofran) 4 mg Q6H PRN IVP Nausea & Vomiting 06/16/19 03:00 07/16/19 02:59 Andrew Diaz MD Jun 17, 2019 00:07
[2019-06-17 04:00] VITALS: BP 133/84
[2019-06-17 04:50] LABS: BASOPHILS % (AUTO) 0.2 % (0.0-2.0); EOSINOPHILS % (AUTO) 0.1 % (0.0-3.0); HEMOGLOBIN 14.5 G/DL (14.2-18.0); LYMPHOCYTES % (AUTO) 12.5 % (20.0-45.0); MEAN CORPUSCULAR VOLUME 89 FL (80-99); MONOCYTES % (AUTO) 3.2 % (1.0-10.0); NEUTROPHILS % (AUTO) 84.1 % (45.0-75.0); PLATELET COUNT 263 K/UL (150-450); RED BLOOD COUNT 4.74 M/UL (4.70-6.10); RED CELL DISTRIBUTION WIDTH 12.5 % (11.6-14.8); WHITE BLOOD COUNT 10.4 K/UL (4.8-10.8)
[2019-06-17 05:11] LABS: ALANINE AMINOTRANSFERASE 81 U/L (12-78); ALBUMIN 2.1 G/DL (3.4-5.0); ALBUMIN/GLOBULIN RATIO 0.4 (1.0-2.7); ALKALINE PHOSPHATASE 99 U/L (46-116); ANION GAP 8 mmol/L (5-15); ASPARTATE AMINO TRANSFERASE 101 U/L (15-37); BILIRUBIN,TOTAL 0.6 MG/DL (0.2-1.0); BLOOD UREA NITROGEN 13 mg/dL (7-18); CALCIUM 8.5 MG/DL (8.5-10.1); CARBON DIOXIDE 29 MMOL/L (21-32); CHLORIDE 106 MMOL/L (98-107); CREATININE 0.9 MG/DL (0.55-1.30); POTASSIUM 3.3 MMOL/L (3.5-5.1); SODIUM 142 MMOL/L (136-145)
[2019-06-17] MEDS: D5NS 1,000 ML IV SCH ×2 (05:52→22:22)
--- NOTE | 2019-06-17 07:11 | General Progress Note ---
Assessment/Plan Assessment/Plan: 1. History of dementia. 2. CHF. 3. Hypertension. 4. BPH. 5. Constipation. 6. elevated LFTS 7. AMI improving LFTS neg hepatitis panel fu cardiology repeat labs in am Subjective ROS Limited/Unobtainable: No Allergies: Coded Allergies: No Known Allergies (Unverified , 06/15/19) Objective Last 24 Hour Vital Signs Date Time Temp Pulse Resp B/P (MAP) Pulse Ox O2 Delivery O2 Flow Rate FiO2 06/17/19 04:00 98.1 74 24 133/84 (100) 100 06/17/19 04:00 71 06/17/19 00:00 98.1 111 20 141/83 (102) 95 06/17/19 00:00 42 06/16/19 21:00 Nasal Cannula 2.0 06/16/19 20:04 94 Nasal Cannula 2.0 28 06/16/19 20:00 70 06/16/19 20:00 97.9 94 20 149/78 (101) 94 06/16/19 16:00 80 06/16/19 16:00 96.7 88 18 123/70 (87) 98 06/16/19 12:00 98.6 67 19 120/69 (86) 98 06/16/19 12:00 71 06/16/19 09:00 Nasal Cannula 2.0 06/16/19 08:00 72 06/16/19 08:00 96.6 80 18 118/70 (86) 96 Intake and Output 06/16/19 06/17/19 19:00 07:00 Intake Total 170 ml 1250 ml Output Total 1800 ml 1500 ml Balance -1630 ml -250 ml Intake Oral 120 ml 100 ml IV Total 50 ml 450 ml Other 700 ml Output Urine Total 1800 ml 1500 ml # Voids 3 Laboratory Tests 06/16/19 22:25: Troponin I 0.122H 06/17/19 04:00: White Blood Count 10.4, Red Blood Count 4.74, Hemoglobin 14.5, Hematocrit 42.0, Mean Corpuscular Volume 89, Mean Corpuscular Hemoglobin 30.6, Mean Corpuscular Hemoglobin Concent 34.5, Red Cell Distribution Width 12.5, Platelet Count 263, Mean Platelet Volume 5.5L, Neutrophils (%) (Auto) 84.1H, Lymphocytes (%) (Auto) 12.5L, Monocytes (%) (Auto) 3.2, Eosinophils (%) (Auto) 0.1, Basophils (%) (Auto ) 0.2, Sodium Level 142, Potassium Level 3.3L, Chloride Level 106, Carbon Dioxide Level 29, Anion Gap 8, Blood Urea Nitrogen 13, Creatinine 0.9, Estimat Glomerular Filtration Rate > 60, Glucose Level 157H, Calcium Level 8.5, Total Bilirubin 0.6, Aspartate Amino Transf (AST/SGOT) 101H, Alanine Aminotransferase (ALT/SGPT) 81H, Alkaline Phosphatase 99, Total Protein 7.5, Albumin 2.1L, Globulin 5.4, Albumin/Globulin Ratio 0.4L, Hepatitis A IgM Antibody [Pending], Hepatitis B Surface Antigen [Pending], Hepatitis B Core IgM Antibody [Pending], Hepatitis C Antibody [Pending] Height (Feet): 5 Height (Inches): 2.00 Weight (Pounds): 135 General Appearance: no apparent distress EENT: PERRL/EOMI Neck: supple Cardiovascular: normal rate Respiratory/Chest: decreased breath sounds Abdomen: normal bowel sounds, non tender, soft Extremities: non-tender Perry Quiroga MD Jun 17, 2019 07:11
--- NOTE | 2019-06-17 07:12 | NUR ---
HAND-OFF: Report given to MANOLO Schaeffer. Patient is on bed, awake on stable condition. RN made aware of covid result. Plan of care endorsed.
--- NOTE | 2019-06-17 07:16 | NUR ---
NURSE NOTES: Received report from Meri/RN, Patient is awake, lying semi-garcia, resting comfortably. On 2L Nasal canula, No distress/SOB noted. monitor technician in place. IV on Left FA, patent, and asymptomatic. Condom cath draining well to gravity. Bed in low position and locked, Bad alarm armed, side- rails up x3, Call light within reach, Encouraged to use call light when needed. Will continue plan of care.
[2019-06-17 08:00] VITALS: BP 122/73
[2019-06-17] MEDS: Memantine 10mg tab ORAL SCH ×2 (08:16→18:18)
[2019-06-17] MEDS: Aspirin Baby 81mg ORAL SCH (08:17)
[2019-06-17] MEDS: Docusate 100mg cap ORAL SCH (08:17)
[2019-06-17] MEDS: Donepezil 5mg Tab ORAL SCH (08:17)
[2019-06-17] MEDS: Enoxaparin 40mg Inj SUBQ SCH (08:18)
--- NOTE | 2019-06-17 08:43 | Consultation ---
DATE OF CONSULTATION: 06/16/2019 INFECTIOUS DISEASES CONSULTATION CONSULTING PHYSICIAN: Benigno Betancourt MD. PRIMARY ATTENDING PHYSICIAN: Gorge Malhotra MD. REASON FOR CONSULTATION: Pneumonia, likely COVID-19 disease. HISTORY OF PRESENT ILLNESS: This is an 88-year-old male admitted yesterday from a senior care facility because of fever, shortness of breath. The patient had low-grade fever for two days, chest congestion, tightness, hypoxemia with O2 saturation of 89, but improved with oxygen via nasal cannula. The patient has dementia, is not a source of history. PAST MEDICAL HISTORY: Significant for dementia, CHF, history of rib fracture, history of elevated transaminase. ALLERGIES: No known drug allergies. MEDICATIONS: Getting ceftriaxone, azithromycin, Lovenox, aspirin, Colace, Aricept, memantine, albuterol Tylenol, Zofran. SOCIAL HISTORY: senior living resident, legally . No other history is obtained by the patient. PHYSICAL EXAMINATION: VITAL SIGNS: Temperature 98.6, temperature at the time of admission was 99.9. Pulse 67, blood pressure 120/59. GENERAL APPEARANCE: No acute distress, confused on restraints. HEAD AND NECK: [place] conjunctiva. HEART: Normal rate. LUNGS: Clear. ABDOMEN: Soft and nontender. EXTREMITIES: No edema. LABORATORY AND DIAGNOSTIC DATA: WBC 10.5, hemoglobin 13.3, hematocrit 42.3, and platelets is 249. Sodium 146, potassium 3.4, chloride 108, bicarb 7, BUN 15, creatinine 0.9, glucose 121. Lactic acid was 3.1 but decreased to 2.8. Blood gas showed pCO2 34.7, pO2 26.4, O2 saturation 96.1. Chest x-ray, reticular infiltrate in left lung Abdominal ultrasound showed gallbladder is filled with stones. Negative Ignacio sign. IMPRESSION: Pneumonia, likely atypical. We will try to rule out COVID-19. Cholelithiasis and elevated transaminase level, acidosis, dementia with behavioral problem. RECOMMENDATION: We will continue with ceftriaxone and Zithromax. We will follow up COVID-19 tests. We will repeat chest x-ray. If the condition become worse, we will start hydroxychloroquine. At the end of my exam, I thank Dr. Malhotra, for involving me in the care of this patient. Benigno Betancourt M.D. DR: Roslyn JOB#: [id number] CC: MARTIN
--- NOTE | 2019-06-17 08:43 | History and Physical Report ---
DATE OF ADMISSION: 06/15/2019 HISTORY OF PRESENT ILLNESS: The patient comes in because of suspected left-sided pneumonia. The patient also had troponin elevated at 0.15. Antibiotic is given and noticed respiratory distress. He is on 2 liters oxygen in the emergency room and these were also elevated. Admitted for hypoxia and pneumonia. The patient is relatively a poor historian. The patient came in has dementia and congestive heart failure and came from the facility because of borderline hypoxia as well as cough and some labored breathing. He was on 2 liters of nasal cannula and was found to have pneumonia. PAST MEDICAL HISTORY: Significant for dementia and constipation. ALLERGIES: No known allergies. MEDICATIONS: Docusate, benazepril and Namenda. FAMILY HISTORY: Noncontributory. SOCIAL HISTORY: Denies history of smoking. Denies history of alcohol or illicit drugs. REVIEW OF SYSTEMS: HEENT: Denies headaches. RESPIRATORY: Reports shortness of breath CARDIOVASCULAR: Denies chest pain. GASTROINTESTINAL: Denies nausea, vomiting or diarrhea. EXTREMITIES: Denies pain. CENTRAL NERVOUS SYSTEM: Denies change in speech pattern. PHYSICAL EXAMINATION: VITAL SIGNS: Temperature is 99.2, pulse is 87, blood pressure is 142/76. HEENT: PERRLA. NECK: Supple. No adenopathy. CHEST: Clear to auscultation. CARDIOVASCULAR: Regular rate and rhythm. No murmurs or extra sounds. GASTROINTESTINAL: Soft, nontender, nondistended. No organomegaly. EXTREMITIES: No edema. Reflexes on both sides. LABORATORY DATA: Laboratory monzon WBC of 8.2, hemoglobin 14.9, platelets 233. Sodium 146, potassium of 3.4, BUN of 15, creatinine 0.9. Chest x-ray showed presence of reticular infiltrates in the left lung, nonspecific. ASSESSMENT AND PLAN: Respiratory insufficiency, rule out pneumonia, hypoxia and cough and shortness of breath at the facility. I have consulted Dr. Benigno Betancourt, Dr. Locke, Dr. Diaz, and Dr. Moreno for the workup of the elevated liver function tests according to the ER doctor as well as for the borderline elevation troponin. Antibiotics per Dr. Benigno Betancourt. We will follow the patient closely. Gorge Malhotra M.D. DR: Angelika JOB#: [id number] CC:
--- NOTE | 2019-06-17 09:45 | Consultation ---
DATE OF CONSULTATION: 06/16/2019 CARDIOLOGY CONSULTATION CONSULTING PHYSICIAN: Rolf Moreno MD. REFERRING PHYSICIAN: Gorge Malhotra MD. REASON FOR CONSULTATION: Management of congestive heart failure. HISTORY OF PRESENT ILLNESS: The patient is a very unfortunate 88-year-old gentleman with prior history of dementia as well as congestive heart failure, who resides in a alf facility and was brought in for evaluation of fever and shortness of breath. The patient has been having low-grade fever in the past couple of days treated with Tylenol. The patient at the time of arrival to the hospital appeared to be altered. He also had complaints of chest congestion as well as chest tightness. At the time of arrival to the hospital, O2 saturation was 89% and he was having labored breathing; however, on placement of 2 L oxygen, his O2 saturation improved to 94%. Upon arrival to this facility, blood pressure was 112/62 mmHg and heart rate was 76. He was tachypneic with respiratory rate of 29 and having a low-grade fever of 99.9 degrees Fahrenheit. A 12-lead electrocardiogram was significant for sinus rhythm with T-wave inversions in leads V2 and V3 suggestive of possible anterior or anteroseptal wall ischemia. Chest x-ray was significant for cardiomegaly and presence of reticular infiltration in the periphery of the right mid lung and retrocardiac region, likely inflammatory and chronic processes. The patient was suspected with COVID-19 infection and in fact, his result came out to be positive. Cardiology consultation was made at the request of Dr. Malhotra for management of congestive heart failure. PAST MEDICAL HISTORY: Congestive heart failure and dementia. REVIEW OF SYSTEMS: HEENT: Denies any headache, diplopia, or blurred vision. CONSTITUTIONAL: Positive for fever and generalized weakness. CARDIOVASCULAR: Positive for chest pain and shortness of breath as mentioned above. Denies any PND, orthopnea, or leg swelling. PULMONARY: Positive for cough, chest congestion, and chest tightness, but no hemoptysis. GASTROINTESTINAL: Denies any nausea, vomiting, diarrhea, constipation, abdominal pain, or GI bleed. GENITOURINARY: Denies any hematuria, dysuria, or incontinence. NEUROLOGIC: Denies any motor dysfunction, sensory deficit, or altered speech. PAST SURGICAL HISTORY: None. ALLERGIES: No known drug allergies. SOCIAL HISTORY: No history of tobacco, alcohol, or illicit drug use. PHYSICAL EXAMINATION: VITAL SIGNS: Blood pressure initially was 112/62 mmHg, heart rate of 73, temperature 99.9 degrees Fahrenheit, O2 saturation of 95% on 2 L nasal cannula, and respiratory rate of 29. GENERAL: The patient is a very unfortunate 88-year-old gentleman who appears to be confused, in no acute respiratory distress. HEENT: Atraumatic and normocephalic. Anicteric. Pupils are equal, round, and reactive to light and accommodation. Extraocular muscles intact. NECK: JVP is less than 5 cm. No carotid bruit. Carotid upstroke is 2+ bilaterally. CARDIOVASCULAR: Normal S1 and S2. Regular rate and rhythm. No murmurs, gallops, or rubs. PMI is at fourth intercostal space at midclavicular line. LUNGS: Diminished breath sounds in both bases with associated crackles. ABDOMEN: Soft, nontender, and nondistended. No hepatosplenomegaly. Positive bowel sounds. EXTREMITIES: No evidence of edema, clubbing, or cyanosis. LABORATORY FINDINGS: WBC is 8.2, hemoglobin of 14.9, hematocrit of 45.5%, and platelet count of 233,000. Sodium was 140, potassium was 3.6, chloride 105, bicarbonate 25, BUN 18, creatinine 1.0, glucose is 202. Lactic acid was 3.1. Calcium was 8.2. Troponin I was 0.15. Brain-natriuretic peptide was 1467. Both AST and ALT elevated at 171 and 129 respectively. ASSESSMENT AND PLAN: The patient is a very unfortunate 88-year-old gentleman, seen in Cardiology consultation. 1. Dyspnea with associated chest pain. Chest x-ray finding is mostly consistent with acute congestive heart failure, also in view of elevated proBNP at 1467. I would like to start the patient on Lasix 20 mg IV push daily and watch his creatinine throughout this hospitalization. A 2D echocardiography has also been ordered. 2. Possible [id number] myocardial infarction or elevated troponin I level could be secondary to necrosis that is seen in congestive heart failure. 3. The patient requires to be having DVT prophylaxis. 4. Elevated transaminase. I would like to thank, Dr. Malhotra, for the courtesy of this consultation. Rolf Moreno M.D. DR: JUAN J JOB#: [id number] CC:
--- NOTE | 2019-06-17 11:22 | NUR ---
CASE MANAGEMENT:REVIEW 06/17/19 SI: COVID 19 PNEUMONIA 97.4 71 21 122/73 92% ON 2L/NC K-3.3 GLUCOSE+157 IS: IV LASIX QD IV ROCEPHIN Q24 IV AZITHROMYCIN Q24 IVF@50/HR LOVENOX SQ QD ASA PO QD ARICEPT PO QD : NOW ON TELEMETRY DCP: FROM [facility]
[2019-06-17 12:00] VITALS: BP 136/70
--- NOTE | 2019-06-17 12:35 | Infectious Diseases Prog Note ---
Assessment/Plan Assessment/Plan IMPRESSION: COIVD19 Pneumonia, Cholelithiasis and elevated transaminase level, acidosis, dementia with behavioral problem. RECOMMENDATION: We will continue with ceftriaxone and Zithromax. We will repeat COVID19 tests. We will repeat chest x-ray. If the condition become worse, we will start hydroxychloroquine. Subjective ROS Limited/Unobtainable: Yes Constitutional: Denies: fever Respiratory: Denies: shortness of breath, dry cough, productive cough Allergies: Coded Allergies: No Known Allergies (Unverified , 06/15/19) Objective Vital Signs Last 24 Hour Vital Signs Date Time Temp Pulse Resp B/P (MAP) Pulse Ox O2 Delivery O2 Flow Rate FiO2 06/17/19 09:00 Nasal Cannula 2.0 06/17/19 08:00 60 06/17/19 08:00 97.4 71 21 122/73 (89) 92 06/17/19 07:00 98 Nasal Cannula 2.0 28 06/17/19 04:00 98.1 74 24 133/84 (100) 100 06/17/19 04:00 71 06/17/19 00:00 98.1 111 20 141/83 (102) 95 06/17/19 00:00 42 06/16/19 21:00 Nasal Cannula 2.0 06/16/19 20:04 94 Nasal Cannula 2.0 28 06/16/19 20:00 70 06/16/19 20:00 97.9 94 20 149/78 (101) 94 06/16/19 16:00 80 06/16/19 16:00 96.7 88 18 123/70 (87) 98 Height (Feet): 5 Height (Inches): 2.00 Weight (Pounds): 135 General Appearance: no acute distress HEENT: mucous membranes moist Respiratory/Chest: lungs clear Cardiovascular: normal rate Abdomen: soft, non tender Extremities: no edema Neurologic/Psychiatric: alert Microbiology Date/Time Source Procedure Growth Status 06/15/19 16:55 Nasopharynx Coronavirus COVID-19 PCR (SHAKILA) - Final Complete 06/15/19 18:20 Rectum - Final NO CARBAPENEM-RESISTANT ENTEROBACTERI... Complete 06/15/19 18:20 Rectum VRE Culture - Final NO VANCOMYCIN RESISTANT ENTEROCOCCUS ... Complete Laboratory Tests Test 06/16/19 22:25 06/17/19 04:00 Troponin I 0.122 ng/mL (0.000-0.056) White Blood Count 10.4 K/UL (4.8-10.8) Red Blood Count 4.74 M/UL (4.70-6.10) Hemoglobin 14.5 G/DL (14.2-18.0) Hematocrit 42.0 % (42.0-52.0) Mean Corpuscular Volume 89 FL (80-99) Mean Corpuscular Hemoglobin 30.6 PG (27.0-31.0) Mean Corpuscular Hemoglobin Concent 34.5 G/DL (32.0-36.0) Red Cell Distribution Width 12.5 % (11.6-14.8) Platelet Count 263 K/UL (150-450) Mean Platelet Volume 5.5 FL (6.5-10.1) L Neutrophils (%) (Auto) 84.1 % (45.0-75.0) H Lymphocytes (%) (Auto) 12.5 % (20.0-45.0) L Monocytes (%) (Auto) 3.2 % (1.0-10.0) Eosinophils (%) (Auto) 0.1 % (0.0-3.0) Basophils (%) (Auto) 0.2 % (0.0-2.0) Sodium Level 142 MMOL/L (136-145) Potassium Level 3.3 MMOL/L (3.5-5.1) L Chloride Level 106 MMOL/L (98-107) Carbon Dioxide Level 29 MMOL/L (21-32) Anion Gap 8 mmol/L (5-15) Blood Urea Nitrogen 13 mg/dL (7-18) Creatinine 0.9 MG/DL (0.55-1.30) Estimat Glomerular Filtration Rate > 60 mL/min (>60) Glucose Level 157 MG/DL (74-106) H Calcium Level 8.5 MG/DL (8.5-10.1) Total Bilirubin 0.6 MG/DL (0.2-1.0) Aspartate Amino Transf (AST/SGOT) 101 U/L (15-37) H Alanine Aminotransferase (ALT/SGPT) 81 U/L (12-78) H Alkaline Phosphatase 99 U/L (46-116) Total Protein 7.5 G/DL (6.4-8.2) Albumin 2.1 G/DL (3.4-5.0) L Globulin 5.4 g/dL Albumin/Globulin Ratio 0.4 (1.0-2.7) L Hepatitis A IgM Antibody Pending Hepatitis B Surface Antigen Pending Hepatitis B Core IgM Antibody Pending Hepatitis C Antibody Pending Current Medications Medications (Trade) Dose Ordered Sig/Kaylan Route PRN Reason Start Time Stop Time Status Last Admin Dose Admin Acetaminophen (Tylenol) 500 mg Q6H PRN ORAL For Pain 06/16/19 00:15 07/16/19 00:14 Acetaminophen (Tylenol) 650 mg Q6H PRN ORAL For Headache 06/16/19 03:00 07/16/19 02:59 Albuterol Sulfate (Proventil MDI) 2 puff Q6H PRN INH Shortness of Breath 06/16/19 03:00 09/14/19 02:59 Aspirin (ASA) 81 mg DAILY ORAL 06/16/19 09:00 07/31/19 08:59 06/17/19 08:17 Azithromycin 500 mg/Dextrose 275 ml @ 275 mls/hr Q24HRS IV 06/16/19 18:00 06/22/19 18:59 06/16/19 18:14 Ceftriaxone Sodium 1 gm/ Dextrose 55 ml @ 110 mls/hr Q24H IVPB 06/16/19 19:00 06/23/19 18:59 06/16/19 20:21 Dextrose/Sodium Chloride 1,000 ml @ 50 mls/hr Q20H IV 06/16/19 04:00 07/16/19 03:59 06/17/19 05:52 Docusate Sodium (Colace) 100 mg DAILY ORAL 06/16/19 09:00 07/16/19 08:59 06/17/19 08:17 Donepezil HCl (Aricept) 5 mg DAILY ORAL 06/16/19 09:00 07/16/19 08:59 06/17/19 08:17 Enoxaparin Sodium (Lovenox) 40 mg DAILY SUBQ 06/16/19 09:00 09/14/19 08:59 06/17/19 08:18 Furosemide (Lasix) 20 mg DAILY IV 06/16/19 22:00 07/16/19 21:59 06/17/19 08:16 Memantine (Namenda) 10 mg TWICE A DAY ORAL 06/16/19 09:00 07/16/19 08:59 06/17/19 08:16 Ondansetron HCl (Zofran) 4 mg Q6H PRN IVP Nausea & Vomiting 06/16/19 03:00 07/16/19 02:59 Polyethylene Glycol (Miralax) 17 gm BEDTIME ORAL 06/17/19 21:00 07/17/19 20:59 Potassium Chloride (K-Dur) 20 meq ONCE ONCE ORAL 06/17/19 18:00 06/17/19 18:01 Benigno Betancourt MD Jun 17, 2019 12:35
--- NOTE | 2019-06-17 15:05 | NUR ---
RADIOLOGY DEPT., CHEST X-RAY DONE.-P.DYE
[2019-06-17 16:00] VITALS: BP 123/70
--- NOTE | 2019-06-17 17:10 | Diagnostic Imaging Report ---
Indication: Shortness of breath Technique: One view of the chest Comparison: 06/15/2019 Findings: Bilateral mostly interstitial opacities with some associated airspace opacity appears slightly increased as compared to the prior study. The heart size is upper limits normal. The aorta is tortuous and ectatic. Impression: Worsening bilateral infiltrates, over 2 days. Most likely representing atypical pneumonia, pulmonary edema also possible
[2019-06-17] MEDS: cefTRIAXone 1 GM in D5W 55 ML IVPB SCH (18:18)
[2019-06-17] MEDS: Azithromycin 500 MG in D5W 275 ML IV SCH (18:18)
[2019-06-17 20:00] VITALS: BP 150/83
[2019-06-17] MEDS: Miralax 17gm pkt ORAL SCH (21:00)
--- NOTE | 2019-06-17 21:35 | General Progress Note ---
Assessment/Plan Problem List: (1) Elevated troponin ICD Codes: R79.89 - Other specified abnormal findings of blood chemistry SNOMED: 816505243, 635674056, 017592675 (2) Elevated LFTs ICD Codes: R79.89 - Other specified abnormal findings of blood chemistry SNOMED: 713775934, 428387817, 526974166 (3) Pneumonia ICD Codes: J18.9 - Pneumonia, unspecified organism SNOMED: 317294561, 308697448, 384548831 (4) Suspected 2019 novel coronavirus infection ICD Codes: R68.89 - Other general symptoms and signs SNOMED: 650651166 Status: progressing Assessment/Plan: covid positive pna resp inuff s/p hypoxia pna abx per id supportive therapy Subjective ROS Limited/Unobtainable: Yes Allergies: Coded Allergies: No Known Allergies (Unverified , 06/15/19) Objective Last 24 Hour Vital Signs Date Time Temp Pulse Resp B/P (MAP) Pulse Ox O2 Delivery O2 Flow Rate FiO2 06/17/19 16:00 62 06/17/19 16:00 96.7 62 20 123/70 (87) 98 06/17/19 12:00 67 06/17/19 12:00 97.7 76 21 136/70 (92) 92 06/17/19 09:00 Nasal Cannula 2.0 06/17/19 08:00 60 06/17/19 08:00 97.4 71 21 122/73 (89) 92 06/17/19 07:00 98 Nasal Cannula 2.0 28 06/17/19 04:00 98.1 74 24 133/84 (100) 100 06/17/19 04:00 71 06/17/19 00:00 98.1 111 20 141/83 (102) 95 06/17/19 00:00 42 Intake and Output 06/16/19 06/17/19 19:00 07:00 Intake Total 170 ml 1250 ml Output Total 1800 ml 1500 ml Balance -1630 ml -250 ml Intake Oral 120 ml 100 ml IV Total 50 ml 450 ml Other 700 ml Output Urine Total 1800 ml 1500 ml # Voids 3 Laboratory Tests 06/16/19 22:25: Troponin I 0.122H 06/17/19 04:00: White Blood Count 10.4, Red Blood Count 4.74, Hemoglobin 14.5, Hematocrit 42.0, Mean Corpuscular Volume 89, Mean Corpuscular Hemoglobin 30.6, Mean Corpuscular Hemoglobin Concent 34.5, Red Cell Distribution Width 12.5, Platelet Count 263, Mean Platelet Volume 5.5L, Neutrophils (%) (Auto) 84.1H, Lymphocytes (%) (Auto) 12.5L, Monocytes (%) (Auto) 3.2, Eosinophils (%) (Auto) 0.1, Basophils (%) (Auto ) 0.2, Sodium Level 142, Potassium Level 3.3L, Chloride Level 106, Carbon Dioxide Level 29, Anion Gap 8, Blood Urea Nitrogen 13, Creatinine 0.9, Estimat Glomerular Filtration Rate > 60, Glucose Level 157H, Calcium Level 8.5, Total Bilirubin 0.6, Aspartate Amino Transf (AST/SGOT) 101H, Alanine Aminotransferase (ALT/SGPT) 81H, Alkaline Phosphatase 99, Total Protein 7.5, Albumin 2.1L, Globulin 5.4, Albumin/Globulin Ratio 0.4L, Hepatitis A IgM Antibody [Pending], Hepatitis B Surface Antigen [Pending], Hepatitis B Core IgM Antibody [Pending], Hepatitis C Antibody [Pending] Height (Feet): 5 Height (Inches): 2.00 Weight (Pounds): 135 Gorge Malhotra MD Jun 17, 2019 21:35
--- NOTE | 2019-06-17 22:44 | Pulmonology Progress Note ---
Assessment/Plan Assessment/Plan Pulmonary Progress Note HPI: Patient is a 88-year-old male history of Dementia, Congestive Heart Failure , admitted from senior care facility with Pneumonia, R/o COVID 19, noted to have fever and shortness of breath, chest congestion and tightness for 2 days. Noted to be confused in the ED. Has been febrile with low-grade temperatures for the past 2 days. Denies vomiting or diarrhea or abdominal pain. Stable O2 requirements, elevated troponin PMH: Dementia, Congestive Heart Failure Social Hx: Prison Resident FHx: [place] Allergies: No Known Allergies All Other Systems: limited - AMS Physical Exam Vital signs noted General: Awake and somewhat confused, no acute distress HEENT: NC/AT. EOMI. Cardiovascular: RRR. S1 and S2 normal. No murmur appreciated Resp: Mild tachypnea, normal work of breathing. On 2 L nasal cannula. No cough Abdomen: Abdomen is soft, nondistended. Nontender Skin: Intact. No abrasions, laceration or rash noted MSK: Normal tone and bulk. Moving all extremities. No obvious deformity. Neuro: Awake and somewhat confused. Poor historian. No focal signs Impression: Pneumonia Suspected 2019 novel coronavirus infection Elevated troponin Elevated LFTs Lymphopenia Dementia Congestive Heart Failure Prison Resident Plan Antibiotics/antivirals per ID O2 PRN Albuterol MDI PRN PPX - Lovenox ASA Monitor labs Monitor cultures/viral studies Ultrasound of the abdomen pending. Isolation for suspected COVID-19 infection Laboratory Tests noted Test 06/15/19 16:55 06/15/19 17:00 White Blood Count 8.2 K/UL (4.8-10.8) Red Blood Count 4.85 M/UL (4.70-6.10) Hemoglobin 14.9 G/DL (14.2-18.0) Hematocrit 45.5 % (42.0-52.0) Mean Corpuscular Volume 94 FL (80-99) Mean Corpuscular Hemoglobin 30.7 PG (27.0-31.0) Mean Corpuscular Hemoglobin Concent 32.7 G/DL (32.0-36.0) Red Cell Distribution Width 14.1 % (11.6-14.8) Platelet Count 233 K/UL (150-450) Mean Platelet Volume 6.3 FL (6.5-10.1) L Neutrophils (%) (Auto) 84.1 % (45.0-75.0) H Lymphocytes (%) (Auto) 12.1 % (20.0-45.0) L Monocytes (%) (Auto) 3.4 % (1.0-10.0) Eosinophils (%) (Auto) 0.0 % (0.0-3.0) Basophils (%) (Auto) 0.3 % (0.0-2.0) Sodium Level 140 MMOL/L (136-145) Potassium Level 3.6 MMOL/L (3.5-5.1) Chloride Level 105 MMOL/L (98-107) Carbon Dioxide Level 25 MMOL/L (21-32) Anion Gap 11 mmol/L (5-15) Blood Urea Nitrogen 18 mg/dL (7-18) Creatinine 1.0 MG/DL (0.55-1.30) Estimated Glomerular Filtration Rate > 60 mL/min (>60) Glucose Level 202 MG/DL (74-106) H Lactic Acid Level 3.10 mmol/L (0.4-2.0) H Calcium Level 8.2 MG/DL (8.5-10.1) L Total Bilirubin Pending Aspartate Amino Transferase (AST) Pending Alanine Aminotransferase (ALT) Pending Alkaline Phosphatase Pending Total Creatine Kinase Pending Creatine Kinase MB Pending Troponin I 0.152 ng/mL (0.000-0.056) Pro-B-Type Natriuretic Peptide Pending Total Protein Pending Albumin Pending Globulin Pending Arterial Blood pH 7.462 (7.350-7.450) Arterial Blood Partial Pressure CO2 34.7 mmHg (35.0-45.0) L Arterial Blood Partial Pressure O2 76.4 mmHg (75.0-100.0) Arterial Blood HCO3 24.2 mmol/L (22.0-26.0) Arterial Blood Oxygen Saturation 96.1 % (95-100) Arterial Blood Base Excess 1.0 (-2-2) Al Test Pending EKG Rate: normal Rhythm: NSR ST Segments: no acute changes Sinus rhythm, left axis deviation. Occasional PACs. T wave inversions, no ST segment changes Chest X-Ray: Consolidations in the left lower lobe may represent an early pneumonia. No effusion. . Subjective ROS Limited/Unobtainable: No Allergies: Coded Allergies: No Known Allergies (Unverified , 06/15/19) Objective Last 24 Hour Vital Signs Date Time Temp Pulse Resp B/P (MAP) Pulse Ox O2 Delivery O2 Flow Rate FiO2 06/17/19 20:00 98.3 66 18 150/83 (105) 92 06/17/19 16:00 62 06/17/19 16:00 96.7 62 20 123/70 (87) 98 06/17/19 12:00 67 06/17/19 12:00 97.7 76 21 136/70 (92) 92 06/17/19 09:00 Nasal Cannula 2.0 06/17/19 08:00 60 06/17/19 08:00 97.4 71 21 122/73 (89) 92 06/17/19 07:00 98 Nasal Cannula 2.0 28 06/17/19 04:00 98.1 74 24 133/84 (100) 100 06/17/19 04:00 71 06/17/19 00:00 98.1 111 20 141/83 (102) 95 06/17/19 00:00 42 Intake and Output 06/16/19 06/17/19 19:00 07:00 Intake Total 170 ml 1250 ml Output Total 1800 ml 1500 ml Balance -1630 ml -250 ml Intake Oral 120 ml 100 ml IV Total 50 ml 450 ml Other 700 ml Output Urine Total 1800 ml 1500 ml # Voids 3 Microbiology Date/Time Source Procedure Growth Status 06/15/19 16:55 Blood Blood Culture - Preliminary NO GROWTH AFTER 24 HOURS Resulted 06/15/19 16:40 Blood Blood Culture - Preliminary NO GROWTH AFTER 24 HOURS Resulted 06/15/19 16:55 Nasopharynx Coronavirus COVID-19 PCR (SHAKILA) - Final Complete 06/15/19 18:20 Rectum - Final NO CARBAPENEM-RESISTANT ENTEROBACTERI... Complete 06/15/19 18:20 Rectum VRE Culture - Final NO VANCOMYCIN RESISTANT ENTEROCOCCUS ... Complete Laboratory Tests 06/17/19 04:00: White Blood Count 10.4, Red Blood Count 4.74, Hemoglobin 14.5, Hematocrit 42.0, Mean Corpuscular Volume 89, Mean Corpuscular Hemoglobin 30.6, Mean Corpuscular Hemoglobin Concent 34.5, Red Cell Distribution Width 12.5, Platelet Count 263, Mean Platelet Volume 5.5L, Neutrophils (%) (Auto) 84.1H, Lymphocytes (%) (Auto) 12.5L, Monocytes (%) (Auto) 3.2, Eosinophils (%) (Auto) 0.1, Basophils (%) (Auto ) 0.2, Sodium Level 142, Potassium Level 3.3L, Chloride Level 106, Carbon Dioxide Level 29, Anion Gap 8, Blood Urea Nitrogen 13, Creatinine 0.9, Estimat Glomerular Filtration Rate > 60, Glucose Level 157H, Calcium Level 8.5, Total Bilirubin 0.6, Aspartate Amino Transf (AST/SGOT) 101H, Alanine Aminotransferase (ALT/SGPT) 81H, Alkaline Phosphatase 99, Total Protein 7.5, Albumin 2.1L, Globulin 5.4, Albumin/Globulin Ratio 0.4L, Hepatitis A IgM Antibody [Pending], Hepatitis B Surface Antigen [Pending], Hepatitis B Core IgM Antibody [Pending], Hepatitis C Antibody [Pending] Current Medications Medications (Trade) Dose Ordered Sig/Kaylan Route PRN Reason Start Time Stop Time Status Last Admin Dose Admin Acetaminophen (Tylenol) 500 mg Q6H PRN ORAL For Pain 06/16/19 00:15 07/16/19 00:14 Acetaminophen (Tylenol) 650 mg Q6H PRN ORAL For Headache 06/16/19 03:00 07/16/19 02:59 Albuterol Sulfate (Proventil MDI) 2 puff Q6H PRN INH Shortness of Breath 06/16/19 03:00 09/14/19 02:59 Aspirin (ASA) 81 mg DAILY ORAL 06/16/19 09:00 07/31/19 08:59 06/17/19 08:17 Azithromycin 500 mg/Dextrose 275 ml @ 275 mls/hr Q24HRS IV 06/16/19 18:00 06/22/19 18:59 06/17/19 18:18 Ceftriaxone Sodium 1 gm/ Dextrose 55 ml @ 110 mls/hr Q24H IVPB 06/16/19 19:00 06/23/19 18:59 06/17/19 18:18 Dextrose/Sodium Chloride 1,000 ml @ 50 mls/hr Q20H IV 06/16/19 04:00 07/16/19 03:59 06/17/19 22:22 Docusate Sodium (Colace) 100 mg DAILY ORAL 06/16/19 09:00 07/16/19 08:59 06/17/19 08:17 Donepezil HCl (Aricept) 5 mg DAILY ORAL 06/16/19 09:00 07/16/19 08:59 06/17/19 08:17 Enoxaparin Sodium (Lovenox) 40 mg DAILY SUBQ 06/16/19 09:00 09/14/19 08:59 06/17/19 08:18 Furosemide (Lasix) 20 mg DAILY IV 06/16/19 22:00 07/16/19 21:59 06/17/19 08:16 Memantine (Namenda) 10 mg TWICE A DAY ORAL 06/16/19 09:00 07/16/19 08:59 06/17/19 18:18 Ondansetron HCl (Zofran) 4 mg Q6H PRN IVP Nausea & Vomiting 06/16/19 03:00 07/16/19 02:59 Polyethylene Glycol (Miralax) 17 gm BEDTIME ORAL 06/17/19 21:00 07/17/19 20:59 Andrew Diaz MD Jun 17, 2019 22:43
--- NOTE | 2019-06-17 23:42 | Cardiology Progress Note ---
Assessment/Plan Assessment/Plan 1. Dyspnea due to possibly combination of COVID-19 pneumonia in addition to with acute congestive heart failure in face of elevated proBNP. May consider B- blockers, continue lasix . Awaiting 2D echocardiography to verify heart failure. 2. Possible [id number] myocardial infarction or elevated troponin I level could be secondary to myonecrosis that is seen in congestive heart failure. 3. Elevated transaminase, improving. Subjective Subjective Sinus rhythm at rate of 66. Objective Last 24 Hour Vital Signs Date Time Temp Pulse Resp B/P (MAP) Pulse Ox O2 Delivery O2 Flow Rate FiO2 06/17/19 20:00 98.3 66 18 150/83 (105) 92 06/17/19 16:00 62 06/17/19 16:00 96.7 62 20 123/70 (87) 98 06/17/19 12:00 67 06/17/19 12:00 97.7 76 21 136/70 (92) 92 06/17/19 09:00 Nasal Cannula 2.0 06/17/19 08:00 60 06/17/19 08:00 97.4 71 21 122/73 (89) 92 06/17/19 07:00 98 Nasal Cannula 2.0 28 06/17/19 04:00 98.1 74 24 133/84 (100) 100 06/17/19 04:00 71 06/17/19 00:00 98.1 111 20 141/83 (102) 95 06/17/19 00:00 42 Intake and Output 06/16/19 06/17/19 19:00 07:00 Intake Total 170 ml 1250 ml Output Total 1800 ml 1500 ml Balance -1630 ml -250 ml Intake Oral 120 ml 100 ml IV Total 50 ml 450 ml Other 700 ml Output Urine Total 1800 ml 1500 ml # Voids 3 Laboratory Tests Test 06/17/19 04:00 White Blood Count 10.4 K/UL (4.8-10.8) Red Blood Count 4.74 M/UL (4.70-6.10) Hemoglobin 14.5 G/DL (14.2-18.0) Hematocrit 42.0 % (42.0-52.0) Mean Corpuscular Volume 89 FL (80-99) Mean Corpuscular Hemoglobin 30.6 PG (27.0-31.0) Mean Corpuscular Hemoglobin Concent 34.5 G/DL (32.0-36.0) Red Cell Distribution Width 12.5 % (11.6-14.8) Platelet Count 263 K/UL (150-450) Mean Platelet Volume 5.5 FL (6.5-10.1) L Neutrophils (%) (Auto) 84.1 % (45.0-75.0) H Lymphocytes (%) (Auto) 12.5 % (20.0-45.0) L Monocytes (%) (Auto) 3.2 % (1.0-10.0) Eosinophils (%) (Auto) 0.1 % (0.0-3.0) Basophils (%) (Auto) 0.2 % (0.0-2.0) Sodium Level 142 MMOL/L (136-145) Potassium Level 3.3 MMOL/L (3.5-5.1) L Chloride Level 106 MMOL/L (98-107) Carbon Dioxide Level 29 MMOL/L (21-32) Anion Gap 8 mmol/L (5-15) Blood Urea Nitrogen 13 mg/dL (7-18) Creatinine 0.9 MG/DL (0.55-1.30) Estimat Glomerular Filtration Rate > 60 mL/min (>60) Glucose Level 157 MG/DL (74-106) H Calcium Level 8.5 MG/DL (8.5-10.1) Total Bilirubin 0.6 MG/DL (0.2-1.0) Aspartate Amino Transf (AST/SGOT) 101 U/L (15-37) H Alanine Aminotransferase (ALT/SGPT) 81 U/L (12-78) H Alkaline Phosphatase 99 U/L (46-116) Total Protein 7.5 G/DL (6.4-8.2) Albumin 2.1 G/DL (3.4-5.0) L Globulin 5.4 g/dL Albumin/Globulin Ratio 0.4 (1.0-2.7) L Hepatitis A IgM Antibody Pending Hepatitis B Surface Antigen Pending Hepatitis B Core IgM Antibody Pending Hepatitis C Antibody Pending Microbiology Date/Time Source Procedure Growth Status 06/15/19 16:55 Blood Blood Culture - Preliminary NO GROWTH AFTER 24 HOURS Resulted 06/15/19 16:40 Blood Blood Culture - Preliminary NO GROWTH AFTER 24 HOURS Resulted 06/15/19 16:55 Nasopharynx Coronavirus COVID-19 PCR (SHAKILA) - Final Complete 06/15/19 18:20 Rectum - Final NO CARBAPENEM-RESISTANT ENTEROBACTERI... Complete 06/15/19 18:20 Rectum VRE Culture - Final NO VANCOMYCIN RESISTANT ENTEROCOCCUS ... Complete Objective HEENT: Atraumatic and normocephalic. Anicteric. Pupils are equal, round, and reactive to light and accommodation. Extraocular muscles intact. NECK: JVP is less than 5 cm. No carotid bruit. Carotid upstroke is 2+ bilaterally. CARDIOVASCULAR: Normal S1 and S2. Regular rate and rhythm. No murmurs, gallops, or rubs. PMI is at fourth intercostal space at midclavicular line. LUNGS: Diminished breath sounds in both bases with associated crackles. ABDOMEN: Soft, nontender, and nondistended. No hepatosplenomegaly. Positive bowel sounds. EXTREMITIES: No evidence of edema, clubbing, or cyanosis. Rolf Moreno MD Jun 17, 2019 23:42
[2019-06-18] VITALS: BP 128/69
[2019-06-18 04:00] VITALS: BP 140/86
--- NOTE | 2019-06-18 07:17 | General Progress Note ---
Assessment/Plan Status: progressing Assessment/Plan: 1. History of dementia. 2. CHF. 3. Hypertension. 4. BPH. 5. Constipation. 6. elevated LFTS 7. AMI improving LFTS hep C positive>>> will send HCV RNA and patient needs out patient fu for treatment fu cardiology repeat labs in am Subjective Allergies: Coded Allergies: No Known Allergies (Unverified , 06/15/19) Objective Last 24 Hour Vital Signs Date Time Temp Pulse Resp B/P (MAP) Pulse Ox O2 Delivery O2 Flow Rate FiO2 06/18/19 04:00 97.6 64 22 140/86 (104) 97 06/18/19 00:00 61 06/18/19 00:00 98.0 72 20 128/69 (88) 95 06/17/19 21:00 Nasal Cannula 2.0 06/17/19 20:00 98.3 66 18 150/83 (105) 92 06/17/19 20:00 68 06/17/19 16:00 62 06/17/19 16:00 96.7 62 20 123/70 (87) 98 06/17/19 12:00 67 06/17/19 12:00 97.7 76 21 136/70 (92) 92 06/17/19 09:00 Nasal Cannula 2.0 06/17/19 08:00 60 06/17/19 08:00 97.4 71 21 122/73 (89) 92 Intake and Output 06/17/19 06/18/19 19:00 07:00 Intake Total 240 ml Balance 240 ml Intake Oral 240 ml # Voids 2 Height (Feet): 5 Height (Inches): 2.00 Weight (Pounds): 135 General Appearance: no apparent distress EENT: normal ENT inspection Neck: supple Cardiovascular: normal rate Respiratory/Chest: decreased breath sounds Abdomen: normal bowel sounds, non tender, soft Extremities: non-tender Perry Quiroga MD Jun 18, 2019 07:17
[2019-06-18 08:00] VITALS: BP 152/84
--- NOTE | 2019-06-18 08:19 | NUR ---
HAND-OFF: Report given to Dudley FRENCH.
[2019-06-18 08:34] LABS: BASOPHILS % (AUTO) 0.2 % (0.0-2.0); EOSINOPHILS % (AUTO) 0.6 % (0.0-3.0); HEMATOCRIT 41.4 % (42.0-52.0); HEMOGLOBIN 13.8 G/DL (14.2-18.0); LYMPHOCYTES % (AUTO) 22.1 % (20.0-45.0); MEAN CORPUSCULAR VOLUME 91 FL (80-99); MONOCYTES % (AUTO) 4.4 % (1.0-10.0); NEUTROPHILS % (AUTO) 72.7 % (45.0-75.0); PLATELET COUNT 277 K/UL (150-450); RED BLOOD COUNT 4.55 M/UL (4.70-6.10); RED CELL DISTRIBUTION WIDTH 12.5 % (11.6-14.8); WHITE BLOOD COUNT 5.7 K/UL (4.8-10.8)
[2019-06-18] MEDS: Donepezil 5mg Tab ORAL SCH (09:43)
[2019-06-18] MEDS: Memantine 10mg tab ORAL SCH ×2 (09:43→18:26)
[2019-06-18] MEDS: Aspirin Baby 81mg ORAL SCH (09:43)
[2019-06-18] MEDS: Docusate 100mg cap ORAL SCH (09:44)
[2019-06-18] MEDS: Enoxaparin 40mg Inj SUBQ SCH (09:45)
--- NOTE | 2019-06-18 10:42 | General Progress Note ---
Assessment/Plan Problem List: (1) Elevated troponin ICD Codes: R79.89 - Other specified abnormal findings of blood chemistry SNOMED: 468199678, 644210775, 002025462 (2) Elevated LFTs ICD Codes: R79.89 - Other specified abnormal findings of blood chemistry SNOMED: 302640255, 494219741, 187847712 (3) Pneumonia ICD Codes: J18.9 - Pneumonia, unspecified organism SNOMED: 540260322, 001847882, 325381833 (4) Suspected 2019 novel coronavirus infection ICD Codes: R68.89 - Other general symptoms and signs SNOMED: 603749402 Status: progressing Assessment/Plan: covid positive pna low k mildly elevated lft.rc per gi pna abx per id Subjective ROS Limited/Unobtainable: Yes Allergies: Coded Allergies: No Known Allergies (Unverified , 06/15/19) Objective Last 24 Hour Vital Signs Date Time Temp Pulse Resp B/P (MAP) Pulse Ox O2 Delivery O2 Flow Rate FiO2 06/18/19 09:00 Nasal Cannula 2.0 06/18/19 08:06 96 Nasal Cannula 2.0 28 06/18/19 08:06 70 18 96 Nasal Cannula 2.0 28 06/18/19 08:00 56 06/18/19 08:00 96.8 57 19 152/84 (106) 96 06/18/19 04:00 61 06/18/19 04:00 97.6 64 22 140/86 (104) 97 06/18/19 00:00 61 06/18/19 00:00 98.0 72 20 128/69 (88) 95 06/17/19 21:00 Nasal Cannula 2.0 06/17/19 20:00 98.3 66 18 150/83 (105) 92 06/17/19 20:00 68 06/17/19 16:00 62 06/17/19 16:00 96.7 62 20 123/70 (87) 98 06/17/19 12:00 67 06/17/19 12:00 97.7 76 21 136/70 (92) 92 Intake and Output 06/17/19 06/18/19 19:00 07:00 Intake Total 240 ml Balance 240 ml Intake Oral 240 ml # Voids 2 2 Laboratory Tests 06/18/19 06:10: White Blood Count 5.7, Red Blood Count 4.55L, Hemoglobin 13.8L, Hematocrit 41.4L , Mean Corpuscular Volume 91, Mean Corpuscular Hemoglobin 30.5, Mean Corpuscular Hemoglobin Concent 33.5, Red Cell Distribution Width 12.5, Platelet Count 277, Mean Platelet Volume 5.0L, Neutrophils (%) (Auto) 72.7, Lymphocytes ( %) (Auto) 22.1, Monocytes (%) (Auto) 4.4, Eosinophils (%) (Auto) 0.6, Basophils (%) (Auto) 0.2, Hepatitis C Antibody [Pending], Hepatitis C RNA (PCR) IUs/ml [ Pending], Hepatitis C RNA (PCR) log IUs/ml [Pending] Height (Feet): 5 Height (Inches): 2.00 Weight (Pounds): 61 Gorge Malhotra MD Jun 18, 2019 10:42
[2019-06-18 12:00] VITALS: BP 128/69
[2019-06-18 12:00] LABS: ALANINE AMINOTRANSFERASE 73 U/L (12-78); ALBUMIN/GLOBULIN RATIO 0.4 (1.0-2.7); ALKALINE PHOSPHATASE 100 U/L (46-116); ANION GAP 12 mmol/L (5-15); ASPARTATE AMINO TRANSFERASE 82 U/L (15-37); BILIRUBIN,TOTAL 0.6 MG/DL (0.2-1.0); BLOOD UREA NITROGEN 16 mg/dL (7-18); CALCIUM 8.5 MG/DL (8.5-10.1); CARBON DIOXIDE 25 MMOL/L (21-32); CHLORIDE 110 MMOL/L (98-107); CREATININE 0.8 MG/DL (0.55-1.30); POTASSIUM 3.4 MMOL/L (3.5-5.1); SODIUM 147 MMOL/L (136-145)
[2019-06-18] MEDS ORDERED: D5NS 1000ml IV ONE (14:31)
[2019-06-18 16:00] VITALS: BP 153/78
[2019-06-18] MEDS: D5NS 1,000 ML IV SCH (17:04)
[2019-06-18] MEDS: Azithromycin 500 MG in D5W 275 ML IV SCH (18:26)
--- NOTE | 2019-06-18 19:37 | NUR ---
NURSE NOTES: Handoff given to MANOLO De León
--- NOTE | 2019-06-18 19:38 | NUR ---
NURSE NOTES: Received report from MANOLO Buckner. Patient is on bed, awake, alert and oriented x 2. Connected to nasal cannula @ 2Lpm via nasal cannula with no respiratory distress reported at this time. Patient is on regular diet, liquid pureed like soup, nectar thick, crush medications, with ensure TID. inside sales consultant is on shows sinus rhythm with no chest pain complaints at the moment. IV is on right hand G-20, IVF of D5NSS @ 50 cc/hour that is intact and asymptomatic. With bilateral soft restraints on wrist. On aspiration and fall precaution, safety measures are in placed. Call light and bedside table within reach, bed alarm is on, side rails up x 2, bed in low and locked position. Will continue plan of care.
[2019-06-18 20:00] VITALS: BP 164/84
[2019-06-18] MEDS: Miralax 17gm pkt ORAL SCH (20:08)
[2019-06-18] MEDS: cefTRIAXone 1 GM in D5W 55 ML IVPB SCH (20:08)
--- NOTE | 2019-06-18 20:39 | Cardiology Progress Note ---
Assessment/Plan Assessment/Plan 1. Dyspnea due to possibly combination of COVID-19 pneumonia in addition to with acute congestive heart failure in face of elevated proBNP. May consider B- blockers, continue lasix . Awaiting 2D echocardiography to verify heart failure. 2. Possible [id number]-[id number] myocardial infarction or elevated troponin I level could be secondary to myonecrosis that is seen in congestive heart failure. 3. Elevated transaminase, improving. Subjective Subjective Sinus rhythm at rate of 80. Objective Last 24 Hour Vital Signs Date Time Temp Pulse Resp B/P (MAP) Pulse Ox O2 Delivery O2 Flow Rate FiO2 06/18/19 16:00 66 06/18/19 16:00 96.9 80 19 153/78 (103) 96 06/18/19 12:00 56 06/18/19 12:00 98.0 72 18 128/69 (88) 95 06/18/19 09:00 Nasal Cannula 2.0 06/18/19 08:06 96 Nasal Cannula 2.0 28 06/18/19 08:06 70 18 96 Nasal Cannula 2.0 28 06/18/19 08:00 56 06/18/19 08:00 96.8 57 19 152/84 (106) 96 06/18/19 04:00 61 06/18/19 04:00 97.6 64 22 140/86 (104) 97 06/18/19 00:00 61 06/18/19 00:00 98.0 72 20 128/69 (88) 95 06/17/19 21:00 Nasal Cannula 2.0 Intake and Output 06/17/19 06/18/19 19:00 07:00 Intake Total 240 ml Balance 240 ml Intake Oral 240 ml # Voids 2 2 Laboratory Tests Test 06/18/19 06:10 06/18/19 10:58 White Blood Count 5.7 K/UL (4.8-10.8) Red Blood Count 4.55 M/UL (4.70-6.10) L Hemoglobin 13.8 G/DL (14.2-18.0) L Hematocrit 41.4 % (42.0-52.0) L Mean Corpuscular Volume 91 FL (80-99) Mean Corpuscular Hemoglobin 30.5 PG (27.0-31.0) Mean Corpuscular Hemoglobin Concent 33.5 G/DL (32.0-36.0) Red Cell Distribution Width 12.5 % (11.6-14.8) Platelet Count 277 K/UL (150-450) Mean Platelet Volume 5.0 FL (6.5-10.1) L Neutrophils (%) (Auto) 72.7 % (45.0-75.0) Lymphocytes (%) (Auto) 22.1 % (20.0-45.0) Monocytes (%) (Auto) 4.4 % (1.0-10.0) Eosinophils (%) (Auto) 0.6 % (0.0-3.0) Basophils (%) (Auto) 0.2 % (0.0-2.0) Hepatitis C Antibody Pending Hepatitis C RNA (PCR) IUs/ml Pending Hepatitis C RNA (PCR) log IUs/ml Pending Sodium Level 147 MMOL/L (136-145) H Potassium Level 3.4 MMOL/L (3.5-5.1) L Chloride Level 110 MMOL/L (98-107) H Carbon Dioxide Level 25 MMOL/L (21-32) Anion Gap 12 mmol/L (5-15) Blood Urea Nitrogen 16 mg/dL (7-18) Creatinine 0.8 MG/DL (0.55-1.30) Estimat Glomerular Filtration Rate > 60 mL/min (>60) Glucose Level 151 MG/DL (74-106) H Calcium Level 8.5 MG/DL (8.5-10.1) Total Bilirubin 0.6 MG/DL (0.2-1.0) Aspartate Amino Transf (AST/SGOT) 82 U/L (15-37) H Alanine Aminotransferase (ALT/SGPT) 73 U/L (12-78) Alkaline Phosphatase 100 U/L (46-116) Total Protein 7.6 G/DL (6.4-8.2) Albumin 2.0 G/DL (3.4-5.0) L Globulin 5.6 g/dL Albumin/Globulin Ratio 0.4 (1.0-2.7) L Objective HEENT: Atraumatic and normocephalic. Anicteric. Pupils are equal, round, and reactive to light and accommodation. Extraocular muscles intact. NECK: JVP is less than 5 cm. No carotid bruit. Carotid upstroke is 2+ bilaterally. CARDIOVASCULAR: Normal S1 and S2. Regular rate and rhythm. No murmurs, gallops, or rubs. PMI is at fourth intercostal space at midclavicular line. LUNGS: Diminished breath sounds in both bases with associated crackles. ABDOMEN: Soft, nontender, and nondistended. No hepatosplenomegaly. Positive bowel sounds. EXTREMITIES: No evidence of edema, clubbing, or cyanosis. Rolf Moreno MD Jun 18, 2019 20:39
--- NOTE | 2019-06-18 22:37 | Pulmonology Progress Note ---
Assessment/Plan Assessment/Plan Pulmonary Progress Note HPI: Patient is a 88-year-old male history of Dementia, Congestive Heart Failure , [facility] with P[facility]onia, R/o COVID 19, noted to have fever and shortness of breath, chest congestion and tightness for 2 days. Noted to be confused in the ED. Has been febrile with low-grade temperatures for the past 2 days. Denies vomiting or diarrhea or abdominal pain. Stable O2 requirements, elevated troponin PMH: Dementia, Congestive Heart Failure Social Hx: Detention Resident FHx: [place] Allergies: No Known Allergies All Other Systems: limited - AMS Physical Exam Vital signs noted General: Awake and somewhat confused, no acute distress HEENT: NC/AT. EOMI. Cardiovascular: RRR. S1 and S2 normal. No murmur appreciated Resp: Mild tachypnea, normal work of breathing. On 2 L nasal cannula. No cough Abdomen: Abdomen is soft, nondistended. Nontender Skin: Intact. No abrasions, laceration or rash noted MSK: Normal tone and bulk. Moving all extremities. No obvious deformity. Neuro: Awake and somewhat confused. Poor historian. No focal signs Impression: Pneumonia Suspected 2019 novel coronavirus infection Elevated troponin Elevated LFTs Lymphopenia Dementia Congestive Heart Failure Detention Resident Plan Antibiotics/antivirals per ID O2 PRN Albuterol MDI PRN PPX - Lovenox ASA Monitor labs Monitor cultures/viral studies Ultrasound of the abdomen pending. Isolation for suspected COVID-19 infection Laboratory Tests noted EKG Rate: normal Rhythm: NSR ST Segments: no acute changes Sinus rhythm, left axis deviation. Occasional PACs. T wave inversions, no ST segment changes Chest X-Ray: Consolidations in the left lower lobe may represent an early pneumonia. No effusion. . Subjective ROS Limited/Unobtainable: No Allergies: Coded Allergies: No Known Allergies (Unverified , 06/15/19) Objective Last 24 Hour Vital Signs Date Time Temp Pulse Resp B/P (MAP) Pulse Ox O2 Delivery O2 Flow Rate FiO2 06/18/19 20:24 95 Nasal Cannula 2.0 28 06/18/19 20:24 64 18 95 Nasal Cannula 2.0 28 06/18/19 20:00 98.8 63 18 164/84 (110) 95 06/18/19 19:40 62 06/18/19 16:00 66 06/18/19 16:00 96.9 80 19 153/78 (103) 96 06/18/19 12:00 56 06/18/19 12:00 98.0 72 18 128/69 (88) 95 06/18/19 09:00 Nasal Cannula 2.0 06/18/19 08:06 96 Nasal Cannula 2.0 28 06/18/19 08:06 70 18 96 Nasal Cannula 2.0 28 06/18/19 08:00 56 06/18/19 08:00 96.8 57 19 152/84 (106) 96 06/18/19 04:00 61 06/18/19 04:00 97.6 64 22 140/86 (104) 97 06/18/19 00:00 61 06/18/19 00:00 98.0 72 20 128/69 (88) 95 Intake and Output 06/17/19 06/18/19 19:00 07:00 Intake Total 240 ml Balance 240 ml Intake Oral 240 ml # Voids 2 2 Laboratory Tests 06/18/19 06:10: White Blood Count 5.7, Red Blood Count 4.55L, Hemoglobin 13.8L, Hematocrit 41.4L , Mean Corpuscular Volume 91, Mean Corpuscular Hemoglobin 30.5, Mean Corpuscular Hemoglobin Concent 33.5, Red Cell Distribution Width 12.5, Platelet Count 277, Mean Platelet Volume 5.0L, Neutrophils (%) (Auto) 72.7, Lymphocytes ( %) (Auto) 22.1, Monocytes (%) (Auto) 4.4, Eosinophils (%) (Auto) 0.6, Basophils (%) (Auto) 0.2, Hepatitis C Antibody [Pending], Hepatitis C RNA (PCR) IUs/ml [ Pending], Hepatitis C RNA (PCR) log IUs/ml [Pending] 06/18/19 10:58: Sodium Level 147H, Potassium Level 3.4L, Chloride Level 110H, Carbon Dioxide Level 25, Anion Gap 12, Blood Urea Nitrogen 16, Creatinine 0.8, Estimat Glomerular Filtration Rate > 60, Glucose Level 151H, Calcium Level 8.5, Total Bilirubin 0.6, Aspartate Amino Transf (AST/SGOT) 82H, Alanine Aminotransferase ( ALT/SGPT) 73, Alkaline Phosphatase 100, Total Protein 7.6, Albumin 2.0L, Globulin 5.6, Albumin/Globulin Ratio 0.4L Current Medications Medications (Trade) Dose Ordered Sig/Kaylan Route PRN Reason Start Time Stop Time Status Last Admin Dose Admin Acetaminophen (Tylenol) 500 mg Q6H PRN ORAL For Pain 06/16/19 00:15 07/16/19 00:14 Acetaminophen (Tylenol) 650 mg Q6H PRN ORAL For Headache 06/16/19 03:00 07/16/19 02:59 Albuterol Sulfate (Proventil MDI) 2 puff Q6H PRN INH Shortness of Breath 06/16/19 03:00 09/14/19 02:59 Aspirin (ASA) 81 mg DAILY ORAL 06/16/19 09:00 07/31/19 08:59 06/18/19 09:43 Azithromycin 500 mg/Dextrose 275 ml @ 275 mls/hr Q24HRS IV 06/16/19 18:00 06/22/19 18:59 06/18/19 18:26 Ceftriaxone Sodium 1 gm/ Dextrose 55 ml @ 110 mls/hr Q24H IVPB 06/16/19 19:00 06/23/19 18:59 06/18/19 20:08 Dextrose/Sodium Chloride 1,000 ml @ 50 mls/hr Q20H IV 06/16/19 04:00 07/16/19 03:59 06/18/19 17:04 Docusate Sodium (Colace) 100 mg DAILY ORAL 06/16/19 09:00 07/16/19 08:59 06/18/19 09:44 Donepezil HCl (Aricept) 5 mg DAILY ORAL 06/16/19 09:00 07/16/19 08:59 06/18/19 09:43 Enoxaparin Sodium (Lovenox) 40 mg DAILY SUBQ 06/16/19 09:00 09/14/19 08:59 06/18/19 09:45 Furosemide (Lasix) 20 mg DAILY IV 06/16/19 22:00 07/16/19 21:59 06/18/19 09:50 Memantine (Namenda) 10 mg TWICE A DAY ORAL 06/16/19 09:00 07/16/19 08:59 06/18/19 18:26 Ondansetron HCl (Zofran) 4 mg Q6H PRN IVP Nausea & Vomiting 06/16/19 03:00 07/16/19 02:59 Polyethylene Glycol (Miralax) 17 gm BEDTIME ORAL 06/17/19 21:00 07/17/19 20:59 06/18/19 20:08 Potassium Chloride (K-Dur) 20 meq DAILY ORAL 06/19/19 09:00 09/17/19 08:59 Andrew Diaz MD Jun 18, 2019 22:37
[2019-06-19] VITALS: BP 167/85
[2019-06-19 04:00] VITALS: BP 142/89
[2019-06-19 06:04] LABS: BASOPHILS % (AUTO) 0.7 % (0.0-2.0); HEMATOCRIT 43.8 % (42.0-52.0); LYMPHOCYTES % (AUTO) 17.5 % (20.0-45.0); MEAN CORPUSCULAR VOLUME 89 FL (80-99); MONOCYTES % (AUTO) 6.5 % (1.0-10.0); NEUTROPHILS % (AUTO) 74.4 % (45.0-75.0); PLATELET COUNT 336 K/UL (150-450); RED BLOOD COUNT 4.92 M/UL (4.70-6.10); RED CELL DISTRIBUTION WIDTH 12.5 % (11.6-14.8); WHITE BLOOD COUNT 4.4 K/UL (4.8-10.8)
[2019-06-19 06:34] LABS: ALANINE AMINOTRANSFERASE 72 U/L (12-78); ALBUMIN 2.1 G/DL (3.4-5.0); ALBUMIN/GLOBULIN RATIO 0.4 (1.0-2.7); ALKALINE PHOSPHATASE 107 U/L (46-116); ANION GAP 10 mmol/L (5-15); ASPARTATE AMINO TRANSFERASE 80 U/L (15-37); BILIRUBIN,TOTAL 0.6 MG/DL (0.2-1.0); BLOOD UREA NITROGEN 15 mg/dL (7-18); CALCIUM 8.3 MG/DL (8.5-10.1); CARBON DIOXIDE 27 MMOL/L (21-32); CHLORIDE 110 MMOL/L (98-107); CREATININE 0.7 MG/DL (0.55-1.30); POTASSIUM 3.1 MMOL/L (3.5-5.1); SODIUM 147 MMOL/L (136-145)
--- NOTE | 2019-06-19 07:49 | NUR ---
HAND-OFF: Report given to MANOLO Lock. Patient is asleep, on stable condition, no complaints made at this tiome. Plan of care endorsed.
--- NOTE | 2019-06-19 07:58 | NUR ---
NURSE NOTES: pt in bed, AOx2. pt is on restraints. paper sales manager on, no signs of cardiac or respiratory distress at this time. bed in lowest position and locked, side rails up x2 and call light within reach. will continue to monitor pt.
[2019-06-19 08:35] VITALS: BP 159/61
[2019-06-19] MEDS: Enoxaparin 40mg Inj SUBQ SCH (10:00)
[2019-06-19] MEDS: Memantine 10mg tab ORAL SCH ×2 (10:03→17:11)
[2019-06-19] MEDS: Donepezil 5mg Tab ORAL SCH (10:04)
[2019-06-19] MEDS: Aspirin Baby 81mg ORAL SCH (10:04)
[2019-06-19] MEDS: Docusate 100mg cap ORAL SCH (10:04)
--- NOTE | 2019-06-19 11:11 | General Progress Note ---
Assessment/Plan Status: progressing Assessment/Plan: 1. History of dementia. 2. CHF. 3. Hypertension. 4. BPH. 5. Constipation. 6. elevated LFTS 7. AMI improving LFTS hep C positive>>> will send HCV RNA and patient needs out patient fu for treatment fu cardiology repeat labs in am replace K Subjective ROS Limited/Unobtainable: No Allergies: Coded Allergies: No Known Allergies (Unverified , 06/15/19) Objective Last 24 Hour Vital Signs Date Time Temp Pulse Resp B/P (MAP) Pulse Ox O2 Delivery O2 Flow Rate FiO2 06/19/19 08:37 59 06/19/19 08:35 98.7 54 20 159/61 (93) 97 06/19/19 04:00 63 06/19/19 04:00 98.8 69 20 142/89 (106) 95 06/19/19 00:00 98.4 72 20 167/85 (112) 94 06/19/19 00:00 60 06/18/19 21:00 Nasal Cannula 2.0 06/18/19 20:24 95 Nasal Cannula 2.0 28 06/18/19 20:24 64 18 95 Nasal Cannula 2.0 28 06/18/19 20:00 98.8 63 18 164/84 (110) 95 06/18/19 19:40 62 06/18/19 16:00 66 06/18/19 16:00 96.9 80 19 153/78 (103) 96 06/18/19 12:00 56 06/18/19 12:00 98.0 72 18 128/69 (88) 95 Intake and Output 06/18/19 06/19/19 19:00 07:00 Intake Total 50 ml 450 ml Output Total 1600 ml 200 ml Balance -1550 ml 250 ml IV Total 50 ml 450 ml Output Urine Total 1600 ml 200 ml # Voids 3 2 Laboratory Tests 06/19/19 05:00: White Blood Count 4.4L, Red Blood Count 4.92, Hemoglobin 15.0, Hematocrit 43.8, Mean Corpuscular Volume 89, Mean Corpuscular Hemoglobin 30.4, Mean Corpuscular Hemoglobin Concent 34.2, Red Cell Distribution Width 12.5, Platelet Count 336, Mean Platelet Volume 5.1L, Neutrophils (%) (Auto) 74.4, Lymphocytes (%) (Auto) 17.5L, Monocytes (%) (Auto) 6.5, Eosinophils (%) (Auto) 1.0, Basophils (%) (Auto ) 0.7, Sodium Level 147H, Potassium Level 3.1L, Chloride Level 110H, Carbon Dioxide Level 27, Anion Gap 10, Blood Urea Nitrogen 15, Creatinine 0.7, Estimat Glomerular Filtration Rate > 60, Glucose Level 132H, Calcium Level 8.3L, Total Bilirubin 0.6, Aspartate Amino Transf (AST/SGOT) 80H, Alanine Aminotransferase ( ALT/SGPT) 72, Alkaline Phosphatase 107, Pro-B-Type Natriuretic Peptide 1644H, Total Protein 7.6, Albumin 2.1L, Globulin 5.5, Albumin/Globulin Ratio 0.4L Height (Feet): 5 Height (Inches): 2.00 Weight (Pounds): 61 General Appearance: no apparent distress EENT: normal ENT inspection Neck: supple Cardiovascular: normal rate, gallop/S3 Abdomen: normal bowel sounds, non tender, soft Extremities: non-tender Perry Quiroga MD Jun 19, 2019 11:11
[2019-06-19 12:00] VITALS: BP 140/71
[2019-06-19] MEDS: D5NS 1,000 ML IV SCH (12:24)
--- NOTE | 2019-06-19 13:05 | NUR ---
NURSE NOTES: reported latest labs to doctor Kimberlee.
--- NOTE | 2019-06-19 13:42 | Infectious Diseases Prog Note ---
Assessment/Plan Assessment/Plan IMPRESSION: COIVD19 Pneumonia, Cholelithiasis and elevated transaminase level, acidosis, dementia with behavioral problem. RECOMMENDATION: We will continue with ceftriaxone and Zithromax. We will repeat COVID19 tests. We will repeat chest x-ray. If the condition become worse, we will start hydroxychloroquine. Subjective ROS Limited/Unobtainable: Yes Neurologic: Reports: confusion, other - on restraint Allergies: Coded Allergies: No Known Allergies (Unverified , 06/15/19) Objective Vital Signs Last 24 Hour Vital Signs Date Time Temp Pulse Resp B/P (MAP) Pulse Ox O2 Delivery O2 Flow Rate FiO2 06/19/19 08:37 59 06/19/19 08:35 98.7 54 20 159/61 (93) 97 06/19/19 04:00 63 06/19/19 04:00 98.8 69 20 142/89 (106) 95 06/19/19 00:00 98.4 72 20 167/85 (112) 94 06/19/19 00:00 60 06/18/19 21:00 Nasal Cannula 2.0 06/18/19 20:24 95 Nasal Cannula 2.0 28 06/18/19 20:24 64 18 95 Nasal Cannula 2.0 28 06/18/19 20:00 98.8 63 18 164/84 (110) 95 06/18/19 19:40 62 06/18/19 16:00 66 06/18/19 16:00 96.9 80 19 153/78 (103) 96 Height (Feet): 5 Height (Inches): 2.00 Weight (Pounds): 61 General Appearance: no acute distress HEENT: mucous membranes moist Respiratory/Chest: other - oxygen by nasal cannula Abdomen: soft, non tender Neurologic/Psychiatric: other - sleeping Laboratory Tests Test 06/19/19 05:00 White Blood Count 4.4 K/UL (4.8-10.8) L Red Blood Count 4.92 M/UL (4.70-6.10) Hemoglobin 15.0 G/DL (14.2-18.0) Hematocrit 43.8 % (42.0-52.0) Mean Corpuscular Volume 89 FL (80-99) Mean Corpuscular Hemoglobin 30.4 PG (27.0-31.0) Mean Corpuscular Hemoglobin Concent 34.2 G/DL (32.0-36.0) Red Cell Distribution Width 12.5 % (11.6-14.8) Platelet Count 336 K/UL (150-450) Mean Platelet Volume 5.1 FL (6.5-10.1) L Neutrophils (%) (Auto) 74.4 % (45.0-75.0) Lymphocytes (%) (Auto) 17.5 % (20.0-45.0) L Monocytes (%) (Auto) 6.5 % (1.0-10.0) Eosinophils (%) (Auto) 1.0 % (0.0-3.0) Basophils (%) (Auto) 0.7 % (0.0-2.0) Sodium Level 147 MMOL/L (136-145) H Potassium Level 3.1 MMOL/L (3.5-5.1) L Chloride Level 110 MMOL/L (98-107) H Carbon Dioxide Level 27 MMOL/L (21-32) Anion Gap 10 mmol/L (5-15) Blood Urea Nitrogen 15 mg/dL (7-18) Creatinine 0.7 MG/DL (0.55-1.30) Estimat Glomerular Filtration Rate > 60 mL/min (>60) Glucose Level 132 MG/DL (74-106) H Calcium Level 8.3 MG/DL (8.5-10.1) L Total Bilirubin 0.6 MG/DL (0.2-1.0) Aspartate Amino Transf (AST/SGOT) 80 U/L (15-37) H Alanine Aminotransferase (ALT/SGPT) 72 U/L (12-78) Alkaline Phosphatase 107 U/L (46-116) Pro-B-Type Natriuretic Peptide 1644 pg/mL (0-125) H Total Protein 7.6 G/DL (6.4-8.2) Albumin 2.1 G/DL (3.4-5.0) L Globulin 5.5 g/dL Albumin/Globulin Ratio 0.4 (1.0-2.7) L Current Medications Medications (Trade) Dose Ordered Sig/Kaylan Route PRN Reason Start Time Stop Time Status Last Admin Dose Admin Acetaminophen (Tylenol) 500 mg Q6H PRN ORAL For Pain 06/16/19 00:15 07/16/19 00:14 Acetaminophen (Tylenol) 650 mg Q6H PRN ORAL For Headache 06/16/19 03:00 07/16/19 02:59 Albuterol Sulfate (Proventil MDI) 2 puff Q6H PRN INH Shortness of Breath 06/16/19 03:00 09/14/19 02:59 Aspirin (ASA) 81 mg DAILY ORAL 06/16/19 09:00 07/31/19 08:59 06/19/19 10:04 Azithromycin 500 mg/Dextrose 275 ml @ 275 mls/hr Q24HRS IV 06/16/19 18:00 06/22/19 18:59 06/18/19 18:26 Ceftriaxone Sodium 1 gm/ Dextrose 55 ml @ 110 mls/hr Q24H IVPB 06/16/19 19:00 06/23/19 18:59 06/18/19 20:08 Dextrose/Sodium Chloride 1,000 ml @ 50 mls/hr Q20H IV 06/16/19 04:00 07/16/19 03:59 06/19/19 12:24 Docusate Sodium (Colace) 100 mg DAILY ORAL 06/16/19 09:00 07/16/19 08:59 06/19/19 10:04 Donepezil HCl (Aricept) 5 mg DAILY ORAL 06/16/19 09:00 07/16/19 08:59 06/19/19 10:04 Enoxaparin Sodium (Lovenox) 40 mg DAILY SUBQ 06/16/19 09:00 09/14/19 08:59 06/19/19 10:00 Furosemide (Lasix) 20 mg DAILY IV 06/16/19 22:00 07/16/19 21:59 06/19/19 10:03 Memantine (Namenda) 10 mg TWICE A DAY ORAL 06/16/19 09:00 07/16/19 08:59 06/19/19 10:03 Ondansetron HCl (Zofran) 4 mg Q6H PRN IVP Nausea & Vomiting 06/16/19 03:00 07/16/19 02:59 Polyethylene Glycol (Miralax) 17 gm BEDTIME ORAL 06/17/19 21:00 07/17/19 20:59 06/18/19 20:08 Potassium Chloride (K-Dur) 20 meq DAILY ORAL 06/19/19 09:00 09/17/19 08:59 06/19/19 10:03 Benigno Betancourt MD Jun 19, 2019 13:42
[2019-06-19 16:00] VITALS: BP 143/89
[2019-06-19] MEDS: Azithromycin 500 MG in D5W 275 ML IV SCH (17:08)
--- NOTE | 2019-06-19 18:43 | General Progress Note ---
Assessment/Plan Problem List: (1) Elevated troponin ICD Codes: R79.89 - Other specified abnormal findings of blood chemistry SNOMED: 768497258, 557673119, 840233957 (2) Elevated LFTs ICD Codes: R79.89 - Other specified abnormal findings of blood chemistry SNOMED: 916882142, 962927971, 466422479 (3) Pneumonia ICD Codes: J18.9 - Pneumonia, unspecified organism SNOMED: 378142868, 342768820, 028102489 (4) Suspected 2019 novel coronavirus infection ICD Codes: R68.89 - Other general symptoms and signs SNOMED: 185466599 Status: progressing Assessment/Plan: covid positive pna peristent low k mildly elevated lft. pna abx per id Subjective ROS Limited/Unobtainable: Yes Allergies: Coded Allergies: No Known Allergies (Unverified , 06/15/19) Objective Last 24 Hour Vital Signs Date Time Temp Pulse Resp B/P (MAP) Pulse Ox O2 Delivery O2 Flow Rate FiO2 06/19/19 16:00 97.7 69 18 143/89 (107) 96 06/19/19 16:00 73 06/19/19 12:00 96.7 60 19 140/71 (94) 97 06/19/19 12:00 77 06/19/19 09:00 Nasal Cannula 2.0 06/19/19 08:37 59 06/19/19 08:35 98.7 54 20 159/61 (93) 97 06/19/19 04:00 63 06/19/19 04:00 98.8 69 20 142/89 (106) 95 06/19/19 00:00 98.4 72 20 167/85 (112) 94 06/19/19 00:00 60 06/18/19 21:00 Nasal Cannula 2.0 06/18/19 20:24 95 Nasal Cannula 2.0 28 06/18/19 20:24 64 18 95 Nasal Cannula 2.0 28 06/18/19 20:00 98.8 63 18 164/84 (110) 95 06/18/19 19:40 62 Intake and Output 06/18/19 06/19/19 19:00 07:00 Intake Total 50 ml 450 ml Output Total 1600 ml 200 ml Balance -1550 ml 250 ml IV Total 50 ml 450 ml Output Urine Total 1600 ml 200 ml # Voids 3 2 Laboratory Tests 06/19/19 05:00: White Blood Count 4.4L, Red Blood Count 4.92, Hemoglobin 15.0, Hematocrit 43.8, Mean Corpuscular Volume 89, Mean Corpuscular Hemoglobin 30.4, Mean Corpuscular Hemoglobin Concent 34.2, Red Cell Distribution Width 12.5, Platelet Count 336, Mean Platelet Volume 5.1L, Neutrophils (%) (Auto) 74.4, Lymphocytes (%) (Auto) 17.5L, Monocytes (%) (Auto) 6.5, Eosinophils (%) (Auto) 1.0, Basophils (%) (Auto ) 0.7, Sodium Level 147H, Potassium Level 3.1L, Chloride Level 110H, Carbon Dioxide Level 27, Anion Gap 10, Blood Urea Nitrogen 15, Creatinine 0.7, Estimat Glomerular Filtration Rate > 60, Glucose Level 132H, Calcium Level 8.3L, Total Bilirubin 0.6, Aspartate Amino Transf (AST/SGOT) 80H, Alanine Aminotransferase ( ALT/SGPT) 72, Alkaline Phosphatase 107, Pro-B-Type Natriuretic Peptide 1644H, Total Protein 7.6, Albumin 2.1L, Globulin 5.5, Albumin/Globulin Ratio 0.4L Height (Feet): 5 Height (Inches): 2.00 Weight (Pounds): 61 Gorge Malhotra MD Jun 19, 2019 18:43
[2019-06-19] MEDS: cefTRIAXone 1 GM in D5W 55 ML IVPB SCH (18:44)
--- NOTE | 2019-06-19 19:40 | NUR ---
NURSE NOTES: Received report from MANOLO Lock. Patient is awake, alert and oriented x 2. Patient is on regular diet, liquid pureed-like soup nectar thick, thin liquids, may crush medications, with Ensure supplement TID, 1:1 feeding. quality assurance monitor chassis is on, shows sinus rhythm with no chest pain nor any other complaints made at the moment. IV site is on right hand g-20 D5 NS @ 50 cc/hour that is intact, patent and asymptomatic. On aspiration and fall precaution, with bilateral wrist restraints. Safety measures were in placed, bed in low and locked position. Side rails up x 2, bed alarm is on. Call light and bedside table within reach, instructed to call for any assistance needed. Will continue plan of care.
--- NOTE | 2019-06-19 19:48 | NUR ---
HAND-OFF: Report given to [place] León/Rn pt in stable condition.
[2019-06-19 20:00] VITALS: BP 139/85
[2019-06-19] MEDS: Metoprolol Succinate XL 25mg tab ORAL SCH (21:12)
[2019-06-19] MEDS: Miralax 17gm pkt ORAL SCH (21:12)
--- NOTE | 2019-06-19 22:10 | NUR ---
NURSE NOTES: Relayed result of Sodium 147 and calcium 8[address] Malhotra and no orders was made at this time.
--- NOTE | 2019-06-19 22:20 | Pulmonology Progress Note ---
Assessment/Plan Assessment/Plan Pulmonary Progress Note HPI: Patient is a 88-year-old male history of Dementia, Congestive Heart Failure , admitted from [facility] with Pneumonia, R/o COVID 19, noted to have fever and shortness of breath, chest congestion and tightness for 2 days. Noted to be confused in the ED. Has been febrile with low-grade temperatures for the past 2 days. Denies vomiting or diarrhea or abdominal pain. Stable O2 requirements, elevated troponin PMH: Dementia, Congestive Heart Failure Social Hx: Mcfp Resident FHx: NC Allergies: No Known Allergies All Other Systems: limited - AMS Physical Exam Vital signs noted General: Awake and somewhat confused, no acute distress HEENT: NC/AT. EOMI. Cardiovascular: RRR. S1 and S2 normal. No murmur appreciated Resp: Mild tachypnea, normal work of breathing. On 2 L nasal cannula. No cough Abdomen: Abdomen is soft, nondistended. Nontender Skin: Intact. No abrasions, laceration or rash noted MSK: Normal tone and bulk. Moving all extremities. No obvious deformity. Neuro: Awake and somewhat confused. Poor historian. No focal signs Impression: Pneumonia Suspected 2019 novel coronavirus infection Elevated troponin Elevated LFTs Lymphopenia Dementia Congestive Heart Failure Mcfp Resident Plan Antibiotics/antivirals per ID O2 PRN Albuterol MDI PRN PPX - Lovenox ASA Monitor labs - hypokalemia - s/p supplementation Monitor cultures/viral studies Ultrasound of the abdomen pending. Isolation for suspected COVID-19 infection Laboratory Tests noted EKG Rate: normal Rhythm: NSR ST Segments: no acute changes Sinus rhythm, left axis deviation. Occasional PACs. T wave inversions, no ST segment changes Chest X-Ray: Consolidations in the left lower lobe may represent an early pneumonia. No effusion. . Subjective ROS Limited/Unobtainable: No Allergies: Coded Allergies: No Known Allergies (Unverified , 06/15/19) Objective Last 24 Hour Vital Signs Date Time Temp Pulse Resp B/P (MAP) Pulse Ox O2 Delivery O2 Flow Rate FiO2 06/19/19 21:12 73 143/89 06/19/19 16:00 97.7 69 18 143/89 (107) 96 06/19/19 16:00 73 06/19/19 12:00 96.7 60 19 140/71 (94) 97 06/19/19 12:00 77 4/19/20 09:00 Nasal Cannula 2.0 06/19/19 08:37 59 06/19/19 08:35 98.7 54 20 159/61 (93) 97 06/19/19 04:00 63 06/19/19 04:00 98.8 69 20 142/89 (106) 95 06/19/19 00:00 98.4 72 20 167/85 (112) 94 06/19/19 00:00 60 Intake and Output 06/18/19 06/19/19 19:00 07:00 Intake Total 50 ml 450 ml Output Total 1600 ml 200 ml Balance -1550 ml 250 ml IV Total 50 ml 450 ml Output Urine Total 1600 ml 200 ml # Voids 3 2 Laboratory Tests 06/19/19 05:00: White Blood Count 4.4L, Red Blood Count 4.92, Hemoglobin 15.0, Hematocrit 43.8, Mean Corpuscular Volume 89, Mean Corpuscular Hemoglobin 30.4, Mean Corpuscular Hemoglobin Concent 34.2, Red Cell Distribution Width 12.5, Platelet Count 336, Mean Platelet Volume 5.1L, Neutrophils (%) (Auto) 74.4, Lymphocytes (%) (Auto) 17.5L, Monocytes (%) (Auto) 6.5, Eosinophils (%) (Auto) 1.0, Basophils (%) (Auto ) 0.7, Sodium Level 147H, Potassium Level 3.1L, Chloride Level 110H, Carbon Dioxide Level 27, Anion Gap 10, Blood Urea Nitrogen 15, Creatinine 0.7, Estimat Glomerular Filtration Rate > 60, Glucose Level 132H, Calcium Level 8.3L, Total Bilirubin 0.6, Aspartate Amino Transf (AST/SGOT) 80H, Alanine Aminotransferase ( ALT/SGPT) 72, Alkaline Phosphatase 107, Pro-B-Type Natriuretic Peptide 1644H, Total Protein 7.6, Albumin 2.1L, Globulin 5.5, Albumin/Globulin Ratio 0.4L Current Medications Medications (Trade) Dose Ordered Sig/Kaylan Route PRN Reason Start Time Stop Time Status Last Admin Dose Admin Acetaminophen (Tylenol) 500 mg Q6H PRN ORAL For Pain 06/16/19 00:15 07/16/19 00:14 Acetaminophen (Tylenol) 650 mg Q6H PRN ORAL For Headache 06/16/19 03:00 07/16/19 02:59 Albuterol Sulfate (Proventil MDI) 2 puff Q6H PRN INH Shortness of Breath 06/16/19 03:00 09/14/19 02:59 Aspirin (ASA) 81 mg DAILY ORAL 06/16/19 09:00 07/31/19 08:59 06/19/19 10:04 Azithromycin 500 mg/Dextrose 275 ml @ 275 mls/hr Q24HRS IV 06/16/19 18:00 06/22/19 18:59 06/19/19 17:08 Ceftriaxone Sodium 1 gm/ Dextrose 55 ml @ 110 mls/hr Q24H IVPB 06/16/19 19:00 06/23/19 18:59 06/19/19 18:44 Dextrose/Sodium Chloride 1,000 ml @ 50 mls/hr Q20H IV 06/16/19 04:00 07/16/19 03:59 06/19/19 12:24 Docusate Sodium (Colace) 100 mg DAILY ORAL 06/16/19 09:00 07/16/19 08:59 06/19/19 10:04 Donepezil HCl (Aricept) 5 mg DAILY ORAL 06/16/19 09:00 07/16/19 08:59 06/19/19 10:04 Enoxaparin Sodium (Lovenox) 40 mg DAILY SUBQ 06/16/19 09:00 09/14/19 08:59 06/19/19 10:00 Furosemide (Lasix) 20 mg DAILY IV 06/16/19 22:00 07/16/19 21:59 06/19/19 10:03 Memantine (Namenda) 10 mg TWICE A DAY ORAL 06/16/19 09:00 07/16/19 08:59 06/19/19 17:11 Metoprolol Succinate (Toprol XL) 25 mg DAILY ORAL 06/19/19 19:15 09/17/19 19:14 06/19/19 21:12 Ondansetron HCl (Zofran) 4 mg Q6H PRN IVP Nausea & Vomiting 06/16/19 03:00 07/16/19 02:59 Polyethylene Glycol (Miralax) 17 gm BEDTIME ORAL 06/17/19 21:00 07/17/19 20:59 06/19/19 21:12 Potassium Chloride (K-Dur) 20 meq DAILY ORAL 06/19/19 09:00 09/17/19 08:59 06/19/19 10:03 Andrew Diaz MD Jun 19, 2019 22:20
[2019-06-20] VITALS: BP 158/65
[2019-06-20 04:00] VITALS: BP 150/94
[2019-06-20 05:31] LABS: BASOPHILS % (AUTO) 0.6 % (0.0-2.0); EOSINOPHILS % (AUTO) 0.6 % (0.0-3.0); HEMATOCRIT 44.9 % (42.0-52.0); HEMOGLOBIN 14.9 G/DL (14.2-18.0); MEAN CORPUSCULAR VOLUME 91 FL (80-99); MONOCYTES % (AUTO) 6.7 % (1.0-10.0); NEUTROPHILS % (AUTO) 64.2 % (45.0-75.0); PLATELET COUNT 385 K/UL (150-450); RED BLOOD COUNT 4.95 M/UL (4.70-6.10); RED CELL DISTRIBUTION WIDTH 12.5 % (11.6-14.8); WHITE BLOOD COUNT 5.4 K/UL (4.8-10.8)
[2019-06-20 06:05] LABS: ALANINE AMINOTRANSFERASE 77 U/L (12-78); ALBUMIN 2.1 G/DL (3.4-5.0); ALBUMIN/GLOBULIN RATIO 0.4 (1.0-2.7); ALKALINE PHOSPHATASE 116 U/L (46-116); ANION GAP 11 mmol/L (5-15); ASPARTATE AMINO TRANSFERASE 79 U/L (15-37); BILIRUBIN,TOTAL 0.7 MG/DL (0.2-1.0); BLOOD UREA NITROGEN 13 mg/dL (7-18); CARBON DIOXIDE 26 MMOL/L (21-32); CHLORIDE 112 MMOL/L (98-107); CREATININE 0.7 MG/DL (0.55-1.30); POTASSIUM 3.7 MMOL/L (3.5-5.1); SODIUM 149 MMOL/L (136-145)
--- NOTE | 2019-06-20 06:45 | NUR ---
NURSE NOTES: Relayed result of Sodium 149 , chloride 112 and calcium 8.[address] Moreno thru text, awaiting for electrolytes replacement orders.
--- NOTE | 2019-06-20 07:33 | NUR ---
HAND-OFF: Report given to MANOLO Rodríguez. Patient is asleep, in stable condition. RN made aware of patient's sodium, chloride and calcium result, no orders received yet from the doctors. Plan of care endorsed.
[2019-06-20 08:00] VITALS: BP_SYST 127; BP_SYST 147; BP_DIAS 87
--- NOTE | 2019-06-20 08:41 | General Progress Note ---
Assessment/Plan Status: progressing Assessment/Plan: 1. History of dementia. 2. CHF. 3. Hypertension. 4. BPH. 5. Constipation. 6. elevated LFTS 7. AMI improving LFTS hep C positive>>> will send HCV RNA and patient needs out patient fu for treatment fu cardiology repeat labs in am Subjective ROS Limited/Unobtainable: No Allergies: Coded Allergies: No Known Allergies (Unverified , 06/15/19) Objective Last 24 Hour Vital Signs Date Time Temp Pulse Resp B/P (MAP) Pulse Ox O2 Delivery O2 Flow Rate FiO2 06/20/19 04:00 60 06/20/19 04:00 2.0 06/20/19 04:00 98.9 63 19 150/94 (112) 93 06/20/19 00:00 71 06/20/19 00:00 98.3 60 21 158/65 (96) 95 06/19/19 21:12 73 143/89 06/19/19 21:00 Nasal Cannula 2.0 06/19/19 20:00 2.0 06/19/19 20:00 98.1 67 19 139/85 (103) 92 06/19/19 19:01 68 06/19/19 16:00 97.7 69 18 143/89 (107) 96 06/19/19 16:00 73 06/19/19 12:00 96.7 60 19 140/71 (94) 97 06/19/19 12:00 77 06/19/19 09:00 Nasal Cannula 2.0 Intake and Output 06/19/19 06/20/19 19:00 07:00 Intake Total 290 ml 550 ml Output Total 600 ml 400 ml Balance -310 ml 150 ml Intake Oral 240 ml IV Total 50 ml 550 ml Output Urine Total 600 ml 400 ml # Voids 2 Laboratory Tests 06/20/19 04:00: White Blood Count 5.4, Red Blood Count 4.95, Hemoglobin 14.9, Hematocrit 44.9, Mean Corpuscular Volume 91, Mean Corpuscular Hemoglobin 30.1, Mean Corpuscular Hemoglobin Concent 33.3, Red Cell Distribution Width 12.5, Platelet Count 385, Mean Platelet Volume 4.8L, Neutrophils (%) (Auto) 64.2, Lymphocytes (%) (Auto) 28.0, Monocytes (%) (Auto) 6.7, Eosinophils (%) (Auto) 0.6, Basophils (%) (Auto ) 0.6, Sodium Level 149H, Potassium Level 3.7, Chloride Level 112H, Carbon Dioxide Level 26, Anion Gap 11, Blood Urea Nitrogen 13, Creatinine 0.7, Estimat Glomerular Filtration Rate > 60, Glucose Level 136H, Calcium Level 8.0L, Total Bilirubin 0.7, Aspartate Amino Transf (AST/SGOT) 79H, Alanine Aminotransferase ( ALT/SGPT) 77, Alkaline Phosphatase 116, Total Protein 7.1, Albumin 2.1L, Globulin 5.0, Albumin/Globulin Ratio 0.4L Height (Feet): 5 Height (Inches): 2.00 Weight (Pounds): 61 General Appearance: no apparent distress EENT: normal ENT inspection Neck: supple Cardiovascular: normal rate Respiratory/Chest: decreased breath sounds Abdomen: normal bowel sounds, non tender, soft Extremities: non-tender Perry Quiroga MD Jun 20, 2019 08:41
[2019-06-20] MEDS: Enoxaparin 40mg Inj SUBQ SCH (09:11)
[2019-06-20] MEDS: Donepezil 5mg Tab ORAL SCH (09:11)
[2019-06-20] MEDS: Aspirin Baby 81mg ORAL SCH (09:11)
[2019-06-20] MEDS: Docusate 100mg cap ORAL SCH (09:12)
[2019-06-20] MEDS: Metoprolol Succinate XL 25mg tab ORAL SCH (09:12)
[2019-06-20] MEDS: Memantine 10mg tab ORAL SCH ×2 (09:12→17:44)
[2019-06-20] MEDS: D5NS 1,000 ML IV SCH (09:13)
[2019-06-20 12:00] VITALS: BP 127/87
--- NOTE | 2019-06-20 12:19 | Infectious Diseases Prog Note ---
Assessment/Plan Assessment/Plan IMPRESSION: COIVD19 Pneumonia, Cholelithiasis and elevated transaminase level, acidosis, dementia with behavioral problem. RECOMMENDATION: We will continue with ceftriaxone and Zithromax. We will repeat COVID19 tests. We will repeat chest x-ray. If the condition become worse, we will start hydroxychloroquine. Subjective ROS Limited/Unobtainable: Yes Constitutional: Denies: fever Neurologic: Reports: confusion, other - on restraint Allergies: Coded Allergies: No Known Allergies (Unverified , 06/15/19) Objective Vital Signs Last 24 Hour Vital Signs Date Time Temp Pulse Resp B/P (MAP) Pulse Ox O2 Delivery O2 Flow Rate FiO2 06/20/19 09:12 63 147/87 06/20/19 08:00 97.8 63 19 147/87 (107) 98 06/20/19 04:00 60 06/20/19 04:00 2.0 06/20/19 04:00 98.9 63 19 150/94 (112) 93 06/20/19 00:00 71 06/20/19 00:00 98.3 60 21 158/65 (96) 95 06/19/19 21:12 73 143/89 06/19/19 21:00 Nasal Cannula 2.0 06/19/19 20:00 2.0 06/19/19 20:00 98.1 67 19 139/85 (103) 92 06/19/19 19:01 68 06/19/19 16:00 97.7 69 18 143/89 (107) 96 06/19/19 16:00 73 Height (Feet): 5 Height (Inches): 2.00 Weight (Pounds): 61 General Appearance: no acute distress HEENT: mucous membranes moist Respiratory/Chest: lungs clear Cardiovascular: normal rate Abdomen: soft, non tender Extremities: no edema Neurologic/Psychiatric: other - sleeping Laboratory Tests Test 06/20/19 04:00 White Blood Count 5.4 K/UL (4.8-10.8) Red Blood Count 4.95 M/UL (4.70-6.10) Hemoglobin 14.9 G/DL (14.2-18.0) Hematocrit 44.9 % (42.0-52.0) Mean Corpuscular Volume 91 FL (80-99) Mean Corpuscular Hemoglobin 30.1 PG (27.0-31.0) Mean Corpuscular Hemoglobin Concent 33.3 G/DL (32.0-36.0) Red Cell Distribution Width 12.5 % (11.6-14.8) Platelet Count 385 K/UL (150-450) Mean Platelet Volume 4.8 FL (6.5-10.1) L Neutrophils (%) (Auto) 64.2 % (45.0-75.0) Lymphocytes (%) (Auto) 28.0 % (20.0-45.0) Monocytes (%) (Auto) 6.7 % (1.0-10.0) Eosinophils (%) (Auto) 0.6 % (0.0-3.0) Basophils (%) (Auto) 0.6 % (0.0-2.0) Sodium Level 149 MMOL/L (136-145) H Potassium Level 3.7 MMOL/L (3.5-5.1) Chloride Level 112 MMOL/L (98-107) H Carbon Dioxide Level 26 MMOL/L (21-32) Anion Gap 11 mmol/L (5-15) Blood Urea Nitrogen 13 mg/dL (7-18) Creatinine 0.7 MG/DL (0.55-1.30) Estimat Glomerular Filtration Rate > 60 mL/min (>60) Glucose Level 136 MG/DL (74-106) H Calcium Level 8.0 MG/DL (8.5-10.1) L Total Bilirubin 0.7 MG/DL (0.2-1.0) Aspartate Amino Transf (AST/SGOT) 79 U/L (15-37) H Alanine Aminotransferase (ALT/SGPT) 77 U/L (12-78) Alkaline Phosphatase 116 U/L (46-116) Total Protein 7.1 G/DL (6.4-8.2) Albumin 2.1 G/DL (3.4-5.0) L Globulin 5.0 g/dL Albumin/Globulin Ratio 0.4 (1.0-2.7) L Current Medications Medications (Trade) Dose Ordered Sig/Kaylan Route PRN Reason Start Time Stop Time Status Last Admin Dose Admin Acetaminophen (Tylenol) 500 mg Q6H PRN ORAL For Pain 06/16/19 00:15 07/16/19 00:14 Acetaminophen (Tylenol) 650 mg Q6H PRN ORAL For Headache 06/16/19 03:00 07/16/19 02:59 Albuterol Sulfate (Proventil MDI) 2 puff Q6H PRN INH Shortness of Breath 06/16/19 03:00 09/14/19 02:59 Aspirin (ASA) 81 mg DAILY ORAL 06/16/19 09:00 07/31/19 08:59 06/20/19 09:11 Azithromycin 500 mg/Dextrose 275 ml @ 275 mls/hr Q24HRS IV 06/16/19 18:00 06/22/19 18:59 06/19/19 17:08 Ceftriaxone Sodium 1 gm/ Dextrose 55 ml @ 110 mls/hr Q24H IVPB 06/16/19 19:00 06/23/19 18:59 06/19/19 18:44 Dextrose/Sodium Chloride 1,000 ml @ 50 mls/hr Q20H IV 06/16/19 04:00 07/16/19 03:59 06/20/19 09:13 Docusate Sodium (Colace) 100 mg DAILY ORAL 06/16/19 09:00 07/16/19 08:59 06/20/19 09:12 Donepezil HCl (Aricept) 5 mg DAILY ORAL 06/16/19 09:00 07/16/19 08:59 06/20/19 09:11 Enoxaparin Sodium (Lovenox) 40 mg DAILY SUBQ 06/16/19 09:00 09/14/19 08:59 06/20/19 09:11 Furosemide (Lasix) 20 mg DAILY IV 06/16/19 22:00 07/16/19 21:59 06/20/19 09:12 Memantine (Namenda) 10 mg TWICE A DAY ORAL 06/16/19 09:00 07/16/19 08:59 06/20/19 09:12 Metoprolol Succinate (Toprol XL) 25 mg DAILY ORAL 06/19/19 19:15 09/17/19 19:14 06/20/19 09:12 Ondansetron HCl (Zofran) 4 mg Q6H PRN IVP Nausea & Vomiting 06/16/19 03:00 07/16/19 02:59 Polyethylene Glycol (Miralax) 17 gm BEDTIME ORAL 06/17/19 21:00 07/17/19 20:59 06/19/19 21:12 Potassium Chloride (K-Dur) 20 meq DAILY ORAL 06/19/19 09:00 09/17/19 08:59 06/20/19 09:12 Benigno Betancourt MD Jun 20, 2019 12:19
--- NOTE | 2019-06-20 13:09 | NUR ---
ST NOTES: SWALLOW STATUS: PATIENT SEEN FOR DYSPHAGIA. HE IS REFUSING PO INTAKE WITH ST, RN, AND ER TECH. GOALS NOT MET WITH INTAKE (REFUSES, 25 MOSTLY). D/W DR KAMINSKI ABOUT POSSIBLE NEED FOR PEG SUPPLEMENT OR PRIMARY SOURCE OF NUTRITION AND HYDRATION. GOALS MET FOR STAFF EDUCATED/TRAINED IN POSTED ASP PRECAUTIONS ON CURRENT LIQUIFIED PUREED LIKE NECTAR THICK SOUP AND NECTAR THICK LIQUID DIET. PLAN: F/UP WITH DYSPHAGIA MANAGEMENT AND TX IN SWALLOW EVAL PLAN OF CARE F/UP WITH ORAL CARE CONSIDER ENCOURAGING INTAKE OF HIGH CARMINE SUP WHEN NOT EATING MEALS MAY HOLD ON MOD BARIUM SWALLOW STUDY SINCE HE IS REFUSING PO TRIALS
--- NOTE | 2019-06-20 13:22 | NUR ---
RD ASSESSMENT & RECOMMENDATIONS SEE CARE ACTIVITY FOR COMPLETE ASSESSMENT DAILY ESTIMATED NEEDS: Needs based on Cardiac, pulmonary 61.2kg 25-30 kcals/kg [id number] total kcals 1-1.5 g protein/kg 61-92 g total protein Fluid per MD, on lasix NUTRITION DIAGNOSIS: Swallowing and chewing difficulty r/t dysphagia as evidenced by pt on liquify puree texture diet w/ NTL, variable PO intake and 1:1 feeds. CURRENT DIET: Regular liquify puree NTL, Ensure Enlive TID PO DIET RECOMMENDATIONS: Regular diet/ texture per DOUPER ENTERAL NUTRITION RECOMMENDATIONS: Consult RD if Non oral feeds are part of POC ADDITIONAL RECOMMENDATIONS: 1) Obtain a calibrated bed scale wt and UPDATED EMR, Current wt is Lbs may be wt in Kg (61lbs per EMR) 2) On lasix, check lytes daily 3) Continue 1:1 feeds. 4) Rec non oral feeds if part of POC
--- NOTE | 2019-06-20 14:05 | Consultation ---
History of Present Illness General Chief Complaint: Upper Respiratory Illness Present Illness Allergies: Coded Allergies: No Known Allergies (Unverified , 06/15/19) Medication History Scheduled Docusate Sodium* (Docusate Sodium*), 100 MG ORAL DAILY, (Reported) Donepezil Hcl* (Donepezil Hcl*), 5 MG ORAL DAILY, (Reported) Memantine Hcl* (Namenda*), 10 MG ORAL TWICE A DAY, (Reported) Patient History Healthcare decision maker Resuscitation status Full Code Advanced Directive on File Physical Exam Last 24 Hour Vital Signs Date Time Temp Pulse Resp B/P (MAP) Pulse Ox O2 Delivery O2 Flow Rate FiO2 06/20/19 09:12 63 147/87 06/20/19 09:00 Nasal Cannula 2.0 06/20/19 08:00 97.8 63 19 147/87 (107) 98 06/20/19 08:00 97.4 59 18 127/87 (100) 99 06/20/19 04:00 60 06/20/19 04:00 2.0 06/20/19 04:00 98.9 63 19 150/94 (112) 93 06/20/19 00:00 71 06/20/19 00:00 98.3 60 21 158/65 (96) 95 06/19/19 21:12 73 143/89 06/19/19 21:00 Nasal Cannula 2.0 06/19/19 20:00 2.0 06/19/19 20:00 98.1 67 19 139/85 (103) 92 06/19/19 19:01 68 06/19/19 16:00 97.7 69 18 143/89 (107) 96 06/19/19 16:00 73 Intake and Output 06/19/19 06/20/19 19:00 07:00 Intake Total 290 ml 550 ml Output Total 600 ml 400 ml Balance -310 ml 150 ml Intake Oral 240 ml IV Total 50 ml 550 ml Output Urine Total 600 ml 400 ml # Voids 2 Laboratory Tests Test 06/20/19 04:00 White Blood Count 5.4 K/UL (4.8-10.8) Red Blood Count 4.95 M/UL (4.70-6.10) Hemoglobin 14.9 G/DL (14.2-18.0) Hematocrit 44.9 % (42.0-52.0) Mean Corpuscular Volume 91 FL (80-99) Mean Corpuscular Hemoglobin 30.1 PG (27.0-31.0) Mean Corpuscular Hemoglobin Concent 33.3 G/DL (32.0-36.0) Red Cell Distribution Width 12.5 % (11.6-14.8) Platelet Count 385 K/UL (150-450) Mean Platelet Volume 4.8 FL (6.5-10.1) L Neutrophils (%) (Auto) 64.2 % (45.0-75.0) Lymphocytes (%) (Auto) 28.0 % (20.0-45.0) Monocytes (%) (Auto) 6.7 % (1.0-10.0) Eosinophils (%) (Auto) 0.6 % (0.0-3.0) Basophils (%) (Auto) 0.6 % (0.0-2.0) Sodium Level 149 MMOL/L (136-145) H Potassium Level 3.7 MMOL/L (3.5-5.1) Chloride Level 112 MMOL/L (98-107) H Carbon Dioxide Level 26 MMOL/L (21-32) Anion Gap 11 mmol/L (5-15) Blood Urea Nitrogen 13 mg/dL (7-18) Creatinine 0.7 MG/DL (0.55-1.30) Estimat Glomerular Filtration Rate > 60 mL/min (>60) Glucose Level 136 MG/DL (74-106) H Calcium Level 8.0 MG/DL (8.5-10.1) L Total Bilirubin 0.7 MG/DL (0.2-1.0) Aspartate Amino Transf (AST/SGOT) 79 U/L (15-37) H Alanine Aminotransferase (ALT/SGPT) 77 U/L (12-78) Alkaline Phosphatase 116 U/L (46-116) Total Protein 7.1 G/DL (6.4-8.2) Albumin 2.1 G/DL (3.4-5.0) L Globulin 5.0 g/dL Albumin/Globulin Ratio 0.4 (1.0-2.7) L Height (Feet): 5 Height (Inches): 2.00 Weight (Pounds): 61 Medications Current Medications Medications (Trade) Dose Ordered Sig/Kaylan Route PRN Reason Start Time Stop Time Status Last Admin Dose Admin Acetaminophen (Tylenol) 500 mg Q6H PRN ORAL For Pain 06/16/19 00:15 07/16/19 00:14 Acetaminophen (Tylenol) 650 mg Q6H PRN ORAL For Headache 06/16/19 03:00 07/16/19 02:59 Albuterol Sulfate (Proventil MDI) 2 puff Q6H PRN INH Shortness of Breath 06/16/19 03:00 09/14/19 02:59 Aspirin (ASA) 81 mg DAILY ORAL 06/16/19 09:00 07/31/19 08:59 06/20/19 09:11 Azithromycin 500 mg/Dextrose 275 ml @ 275 mls/hr Q24HRS IV 06/16/19 18:00 06/22/19 18:59 06/19/19 17:08 Ceftriaxone Sodium 1 gm/ Dextrose 55 ml @ 110 mls/hr Q24H IVPB 06/16/19 19:00 06/23/19 18:59 06/19/19 18:44 Dextrose/Sodium Chloride 1,000 ml @ 50 mls/hr Q20H IV 06/16/19 04:00 07/16/19 03:59 06/20/19 09:13 Docusate Sodium (Colace) 100 mg DAILY ORAL 06/16/19 09:00 07/16/19 08:59 06/20/19 09:12 Donepezil HCl (Aricept) 5 mg DAILY ORAL 06/16/19 09:00 07/16/19 08:59 06/20/19 09:11 Enoxaparin Sodium (Lovenox) 40 mg DAILY SUBQ 06/16/19 09:00 09/14/19 08:59 06/20/19 09:11 Furosemide (Lasix) 20 mg DAILY IV 06/16/19 22:00 07/16/19 21:59 06/20/19 09:12 Memantine (Namenda) 10 mg TWICE A DAY ORAL 06/16/19 09:00 07/16/19 08:59 06/20/19 09:12 Metoprolol Succinate (Toprol XL) 25 mg DAILY ORAL 06/19/19 19:15 09/17/19 19:14 06/20/19 09:12 Ondansetron HCl (Zofran) 4 mg Q6H PRN IVP Nausea & Vomiting 06/16/19 03:00 07/16/19 02:59 Polyethylene Glycol (Miralax) 17 gm BEDTIME ORAL 06/17/19 21:00 07/17/19 20:59 06/19/19 21:12 Potassium Chloride (K-Dur) 20 meq DAILY ORAL 06/19/19 09:00 09/17/19 08:59 06/20/19 09:12 Assessment/Plan Assessment/Plan: Hematology Consultation REQ MD: Gorge Mark RFC: Leukopenia DOS: 06/20/2019 HPI: 88-year-old male history of dementia and CHF presents from [facility] for evaluation of fever and shortness of breath. Has been febrile with low-grade temperatures for the past 2 days. He was given Tylenol prior to arrival. The patient is somewhat confused though oriented to self. He is complaining of chest congestion and tightness. Denies vomiting or diarrhea or abdominal pain. He was found saturating 89% with some labored breathing on EMS arrival. They put him on 2 L nasal cannula bring him to 94% with improvement in his respirations. He is full code Noted to have a low wbc, heme consulted and has been seen by Gi, hep C++, id as well, being treated for covid19 PMH: CHF, dementia PSH: Reviewed Allergies: None listed Social Hx: None listed Allergies: Coded Allergies: No Known Allergies (Unverified , 06/15/19) Review of Systems All Other Systems: limited - Due to dementia Physical Exam General: Awake and somewhat confused, no acute distress HEENT: NC/AT. EOMI. Cardiovascular: RRR. S1 and S2 normal. No murmur appreciated Resp: Mild tachypnea, normal work of breathing. On 2 L nasal cannula. Abdomen: Abdomen is soft, nondistended. Nontender Skin: Intact. No abrasions, laceration MSK: Normal tone and bulk. Moving all extremities Neuro: Awake and somewhat confused. Poor historian Labs: reviewed Meds: noted Assessment and Plan: # Leukopenia -- multiple etiologies could be related to underlying liver disease , medication-induced, infection versus viral syndrome, in this case likely due to COVID19+ --> peripheral smear has been ordered and does not show significant abnormalities --> Medications have been reviewed --> Continue to monitor for improvement, trend cbc --> Hep panel and HIV have been ordered --> US abd ordered to r/o cirrhosis and hepatosplenomegaly --> reverse isolation if ANC is <2000 --> Give neupogen if ANC <1000 # Suspected 2019 novel coronavirus infection --> per id, on plaq, abx # Pneumonia --> on abx # Elevated troponin ==> nstemi per cards # Elevated LFTs --> likely hep C related The timing of this note does not necessarily reflect the time of the patient was seen. Greatly appreciate consultation. Geraldo Galvez MD Jun 20, 2019 14:05
--- NOTE | 2019-06-20 15:24 | NUR ---
CASE MANAGEMENT:REVIEW 06/20/19 SI: COVID 19 PNEUMONIA 97.8 63 18 147/87 98% ON 2L/NC NA+149 IS: IV LASIX QD IV ROCEPHIN Q24 IV AZITHROMYCIN Q24 IVF@50/HR LOVENOX SQ QD ASA PO QD ARICEPT PO QD TOPROL PO QD : NOW ON TELEMETRY DCP: FROM [facility]
--- NOTE | 2019-06-20 15:41 | Diagnostic Imaging Report ---
Indication: Cough Technique: One view of the chest Comparison: none Findings: Bilateral diffuse left greater than right interstitial infiltrates and patchy peripheral airspace opacities are unchanged. The pleural spaces remain clear. The heart size is normal Impression: Unchanged, over one day, findings as above.
[2019-06-20 16:00] VITALS: BP 146/86
[2019-06-20] MEDS: Azithromycin 500 MG in D5W 275 ML IV SCH (17:47)
[2019-06-20] MEDS: cefTRIAXone 1 GM in D5W 55 ML IVPB SCH (18:51)
--- NOTE | 2019-06-20 19:50 | NUR ---
NURSE NOTES: Received report from MANOLO Lock. Patient is awake, alert and oriented x 2. Patient is on regular diet, pureed-like soup nectar thick, thin liquids, Ensure three times a day for additional supplement, 1:1 feed assist. alarm security or surveillance monitor is on, shows sinus rhythm with no respiratory distress noted at this time. No complaints made at the moment nor chest pain. IV site is on left hand g-20 with IVF of D5NS @ 50cc/hour that is intact, patent and asymptomatic. On aspiration, fall precaution, bila. Safety measures were in placed, bed in low and locked position. Side rails up x 2, bed alarm is on. Call light and bedside table within reach, instructed to call for any assistance needed. Will continue plan of care.
[2019-06-20 20:00] VITALS: BP 136/92
--- NOTE | 2019-06-20 20:42 | NUR ---
HAND-OFF: Report given to Meri/walter, pt in stable condition eating very little. Pt ate about 65% for dinner.
--- NOTE | 2019-06-20 20:49 | Pulmonology Progress Note ---
Assessment/Plan Assessment/Plan Pulmonary Progress Note HPI: Patient is a 88-year-old male history of Dementia, Congestive Heart Failure , admitted from nursing home facility with Pneumonia, COVID 19 positive, noted to have fever and shortness of breath, chest congestion and tightness for 2 days. Noted to be confused in the ED. Has been febrile with low-grade temperatures for the past 2 days. Denies vomiting or diarrhea or abdominal pain. Stable O2 requirements, stable Pulmonary Status PMH: Dementia, Congestive Heart Failure Social Hx: Intermediate Resident FHx: NC Allergies: No Known Allergies All Other Systems: limited - AMS Physical Exam Vital signs noted General: Awake and somewhat confused, no acute distress HEENT: NC/AT. EOMI. Cardiovascular: RRR. S1 and S2 normal. No murmur appreciated Resp: Mild tachypnea, normal work of breathing. On 2 L nasal cannula. No cough Abdomen: Abdomen is soft, nondistended. Nontender Skin: Intact. No abrasions, laceration or rash noted MSK: Normal tone and bulk. Moving all extremities. No obvious deformity. Neuro: Awake and somewhat confused. Poor historian. No focal signs Impression: Pneumonia Suspected 2019 novel coronavirus infection Elevated troponin Elevated LFTs Lymphopenia Dementia Congestive Heart Failure Intermediate Resident Plan Antibiotics/antivirals per ID O2 PRN Albuterol MDI PRN PPX - Lovenox ASA Monitor labs - hypokalemia - s/p supplementation Monitor cultures/viral studies Ultrasound of the abdomen pending. Isolation for suspected COVID-19 infection Laboratory Tests noted EKG Rate: normal Rhythm: NSR ST Segments: no acute changes Sinus rhythm, left axis deviation. Occasional PACs. T wave inversions, no ST segment changes Chest X-Ray: Consolidations in the left lower lobe may represent an early pneumonia. No effusion. Current CXR stable infiltrates . Subjective ROS Limited/Unobtainable: No Allergies: Coded Allergies: No Known Allergies (Unverified , 06/15/19) Objective Last 24 Hour Vital Signs Date Time Temp Pulse Resp B/P (MAP) Pulse Ox O2 Delivery O2 Flow Rate FiO2 06/20/19 18:00 2.0 06/20/19 16:00 2.0 06/20/19 16:00 61 06/20/19 16:00 97.3 60 18 146/86 (106) 96 06/20/19 12:00 97.4 66 18 127/87 (100) 99 06/20/19 12:00 2.0 06/20/19 12:00 55 06/20/19 09:12 63 147/87 06/20/19 09:00 Nasal Cannula 2.0 06/20/19 08:00 55 06/20/19 08:00 97.8 63 19 147/87 (107) 98 06/20/19 08:00 2.0 06/20/19 04:00 60 06/20/19 04:00 2.0 06/20/19 04:00 98.9 63 19 150/94 (112) 93 06/20/19 00:00 71 06/20/19 00:00 98.3 60 21 158/65 (96) 95 06/19/19 21:12 73 143/89 06/19/19 21:00 Nasal Cannula 2.0 Intake and Output 06/19/19 06/20/19 19:00 07:00 Intake Total 290 ml 550 ml Output Total 600 ml 400 ml Balance -310 ml 150 ml Intake Oral 240 ml IV Total 50 ml 550 ml Output Urine Total 600 ml 400 ml # Voids 2 Laboratory Tests 06/20/19 04:00: White Blood Count 5.4, Red Blood Count 4.95, Hemoglobin 14.9, Hematocrit 44.9, Mean Corpuscular Volume 91, Mean Corpuscular Hemoglobin 30.1, Mean Corpuscular Hemoglobin Concent 33.3, Red Cell Distribution Width 12.5, Platelet Count 385, Mean Platelet Volume 4.8L, Neutrophils (%) (Auto) 64.2, Lymphocytes (%) (Auto) 28.0, Monocytes (%) (Auto) 6.7, Eosinophils (%) (Auto) 0.6, Basophils (%) (Auto ) 0.6, Sodium Level 149H, Potassium Level 3.7, Chloride Level 112H, Carbon Dioxide Level 26, Anion Gap 11, Blood Urea Nitrogen 13, Creatinine 0.7, Estimat Glomerular Filtration Rate > 60, Glucose Level 136H, Calcium Level 8.0L, Total Bilirubin 0.7, Aspartate Amino Transf (AST/SGOT) 79H, Alanine Aminotransferase ( ALT/SGPT) 77, Alkaline Phosphatase 116, Total Protein 7.1, Albumin 2.1L, Globulin 5.0, Albumin/Globulin Ratio 0.4L Current Medications Medications (Trade) Dose Ordered Sig/Kaylan Route PRN Reason Start Time Stop Time Status Last Admin Dose Admin Acetaminophen (Tylenol) 500 mg Q6H PRN ORAL For Pain 06/16/19 00:15 07/16/19 00:14 Acetaminophen (Tylenol) 650 mg Q6H PRN ORAL For Headache 06/16/19 03:00 07/16/19 02:59 Albuterol Sulfate (Proventil MDI) 2 puff Q6H PRN INH Shortness of Breath 06/16/19 03:00 09/14/19 02:59 Aspirin (ASA) 81 mg DAILY ORAL 06/16/19 09:00 07/31/19 08:59 06/20/19 09:11 Azithromycin 500 mg/Dextrose 275 ml @ 275 mls/hr Q24HRS IV 06/16/19 18:00 06/22/19 18:59 06/20/19 17:47 Ceftriaxone Sodium 1 gm/ Dextrose 55 ml @ 110 mls/hr Q24H IVPB 06/16/19 19:00 06/23/19 18:59 06/20/19 18:51 Dextrose/Sodium Chloride 1,000 ml @ 50 mls/hr Q20H IV 06/16/19 04:00 07/16/19 03:59 06/20/19 09:13 Docusate Sodium (Colace) 100 mg DAILY ORAL 06/16/19 09:00 07/16/19 08:59 06/20/19 09:12 Donepezil HCl (Aricept) 5 mg DAILY ORAL 06/16/19 09:00 07/16/19 08:59 06/20/19 09:11 Enoxaparin Sodium (Lovenox) 40 mg DAILY SUBQ 06/16/19 09:00 09/14/19 08:59 06/20/19 09:11 Furosemide (Lasix) 20 mg DAILY IV 06/16/19 22:00 07/16/19 21:59 06/20/19 09:12 Memantine (Namenda) 10 mg TWICE A DAY ORAL 06/16/19 09:00 07/16/19 08:59 06/20/19 17:44 Metoprolol Succinate (Toprol XL) 25 mg DAILY ORAL 06/19/19 19:15 09/17/19 19:14 06/20/19 09:12 Ondansetron HCl (Zofran) 4 mg Q6H PRN IVP Nausea & Vomiting 06/16/19 03:00 07/16/19 02:59 Polyethylene Glycol (Miralax) 17 gm BEDTIME ORAL 06/17/19 21:00 07/17/19 20:59 06/19/19 21:12 Potassium Chloride (K-Dur) 20 meq DAILY ORAL 06/19/19 09:00 09/17/19 08:59 06/20/19 09:12 Andrew Diaz MD Jun 20, 2019 20:49
[2019-06-20] MEDS: Miralax 17gm pkt ORAL SCH (21:15)
--- NOTE | 2019-06-20 21:55 | General Progress Note ---
Assessment/Plan Problem List: (1) Elevated troponin ICD Codes: R79.89 - Other specified abnormal findings of blood chemistry SNOMED: 191475590, 792000034, 620432321 (2) Elevated LFTs ICD Codes: R79.89 - Other specified abnormal findings of blood chemistry SNOMED: 466791339, 662555382, 676942444 (3) Pneumonia ICD Codes: J18.9 - Pneumonia, unspecified organism SNOMED: 751125428, 350367107, 513608496 (4) Suspected 2019 novel coronavirus infection ICD Codes: R68.89 - Other general symptoms and signs SNOMED: 452411385 Status: progressing Assessment/Plan: covid positive pna peristent low k resolved mildly elevated lft.improved not hypoxic afebrile pna improving abx per id Subjective ROS Limited/Unobtainable: Yes Allergies: Coded Allergies: No Known Allergies (Unverified , 06/15/19) Objective Last 24 Hour Vital Signs Date Time Temp Pulse Resp B/P (MAP) Pulse Ox O2 Delivery O2 Flow Rate FiO2 06/20/19 18:00 2.0 06/20/19 16:00 2.0 06/20/19 16:00 61 06/20/19 16:00 97.3 60 18 146/86 (106) 96 06/20/19 12:00 97.4 66 18 127/87 (100) 99 06/20/19 12:00 2.0 06/20/19 12:00 55 06/20/19 09:12 63 147/87 06/20/19 09:00 Nasal Cannula 2.0 06/20/19 08:00 55 06/20/19 08:00 97.8 63 19 147/87 (107) 98 06/20/19 08:00 2.0 06/20/19 04:00 60 06/20/19 04:00 2.0 06/20/19 04:00 98.9 63 19 150/94 (112) 93 06/20/19 00:00 71 06/20/19 00:00 98.3 60 21 158/65 (96) 95 Intake and Output 06/19/19 06/20/19 19:00 07:00 Intake Total 290 ml 550 ml Output Total 600 ml 400 ml Balance -310 ml 150 ml Intake Oral 240 ml IV Total 50 ml 550 ml Output Urine Total 600 ml 400 ml # Voids 2 Laboratory Tests 06/20/19 04:00: White Blood Count 5.4, Red Blood Count 4.95, Hemoglobin 14.9, Hematocrit 44.9, Mean Corpuscular Volume 91, Mean Corpuscular Hemoglobin 30.1, Mean Corpuscular Hemoglobin Concent 33.3, Red Cell Distribution Width 12.5, Platelet Count 385, Mean Platelet Volume 4.8L, Neutrophils (%) (Auto) 64.2, Lymphocytes (%) (Auto) 28.0, Monocytes (%) (Auto) 6.7, Eosinophils (%) (Auto) 0.6, Basophils (%) (Auto ) 0.6, Sodium Level 149H, Potassium Level 3.7, Chloride Level 112H, Carbon Dioxide Level 26, Anion Gap 11, Blood Urea Nitrogen 13, Creatinine 0.7, Estimat Glomerular Filtration Rate > 60, Glucose Level 136H, Calcium Level 8.0L, Total Bilirubin 0.7, Aspartate Amino Transf (AST/SGOT) 79H, Alanine Aminotransferase ( ALT/SGPT) 77, Alkaline Phosphatase 116, Total Protein 7.1, Albumin 2.1L, Globulin 5.0, Albumin/Globulin Ratio 0.4L Height (Feet): 5 Height (Inches): 2.00 Weight (Pounds): 61 Gorge Malhotra MD Jun 20, 2019 21:55
[2019-06-21] VITALS: BP 132/84
[2019-06-21 04:00] VITALS: BP 122/81
[2019-06-21 05:29] LABS: BASOPHILS % (AUTO) 0.4 % (0.0-2.0); EOSINOPHILS % (AUTO) 1.1 % (0.0-3.0); HEMATOCRIT 41.4 % (42.0-52.0); LYMPHOCYTES % (AUTO) 23.2 % (20.0-45.0); MEAN CORPUSCULAR VOLUME 90 FL (80-99); MONOCYTES % (AUTO) 11.2 % (1.0-10.0); NEUTROPHILS % (AUTO) 64.1 % (45.0-75.0); PLATELET COUNT 365 K/UL (150-450); RED BLOOD COUNT 4.62 M/UL (4.70-6.10); RED CELL DISTRIBUTION WIDTH 12.5 % (11.6-14.8); WHITE BLOOD COUNT 4.8 K/UL (4.8-10.8)
[2019-06-21 05:51] LABS: ANION GAP 10 mmol/L (5-15); BLOOD UREA NITROGEN 14 mg/dL (7-18); CALCIUM 8.2 MG/DL (8.5-10.1); CARBON DIOXIDE 26 MMOL/L (21-32); CHLORIDE 111 MMOL/L (98-107); CREATININE 0.8 MG/DL (0.55-1.30); SODIUM 147 MMOL/L (136-145)
--- NOTE | 2019-06-21 06:00 | NUR ---
NURSE NOTES: Relayed result of potassium, sodium and chloride to Dr. Malhotra and Dr. Quiroga. Awaiting for orders from them.
--- NOTE | 2019-06-21 06:07 | Hematology/Onc Progress Note ---
Assessment/Plan Assessment/Plan Assessment and Plan: # Leukopenia -- multiple etiologies could be related to underlying liver disease , medication-induced, infection versus viral syndrome, in this case likely due to COVID19+, and Hep C+ --> peripheral smear has been ordered and does not show significant abnormalities --> Medications have been reviewed --> Continue to monitor for improvement, trend cbc --> Hep panel and HIV have been ordered--> cw hep C++ exposure --> US abd ordered to r/o cirrhosis and hepatosplenomegaly --> none noted --> reverse isolation if ANC is <2000 --> Give neupogen if ANC <1000 # Suspected 2019 novel coronavirus infection --> per id, on plaq, abx --> iso # Pneumonia --> on abx # Elevated troponin ==> nstemi per cards # Elevated LFTs --> likely hep C related The timing of this note does not necessarily reflect the time of the patient was seen. Greatly appreciate consultation. Subjective Constitutional: Denies: no symptoms, chills, fever, malaise, weakness, other Respiratory: Denies: no symptoms, cough, shortness of breath, SOB with excertion, SOB at rest, sputum, wheezing, other Gastrointestinal/Abdominal: Denies: no symptoms, abdomen distended, abdominal pain, black stools, tarry stools, blood in stool, constipated, diarrhea, difficulty swallowing, nausea, poor appetite, poor fluid intake, rectal bleeding , vomiting, other Genitourinary: Denies: no symptoms, burning, discharge, frequency, flank pain, hematuria, incontinence, pain, urgency, other Neurologic/Psychiatric: Denies: no symptoms, anxiety, depressed, emotional problems, headache, numbness, paresthesia, pre-existing deficit, seizure, tingling, tremors, weakness, other Endocrine: Denies: no symptoms, excessive sweating, flushing, intolerance to cold, intolerance to heat, increased hunger, increased thirst, increased urine, unexplained weight gain, unexplained weight loss, other Hematologic/Lymphatic: Denies: no symptoms, anemia, easy bleeding, easy bruising, adenopathy, other Allergies: Coded Allergies: No Known Allergies (Unverified , 06/15/19) Subjective 06/20 breathing is better, on iso for covid 19, wbc improved Objective Objective Current Medications Medications (Trade) Dose Ordered Sig/Kaylan Route PRN Reason Start Time Stop Time Status Last Admin Dose Admin Acetaminophen (Tylenol) 500 mg Q6H PRN ORAL For Pain 06/16/19 00:15 07/16/19 00:14 Acetaminophen (Tylenol) 650 mg Q6H PRN ORAL For Headache 06/16/19 03:00 07/16/19 02:59 Albuterol Sulfate (Proventil MDI) 2 puff Q6H PRN INH Shortness of Breath 06/16/19 03:00 09/14/19 02:59 Aspirin (ASA) 81 mg DAILY ORAL 06/16/19 09:00 07/31/19 08:59 06/20/19 09:11 Azithromycin 500 mg/Dextrose 275 ml @ 275 mls/hr Q24HRS IV 06/16/19 18:00 06/22/19 18:59 06/20/19 17:47 Ceftriaxone Sodium 1 gm/ Dextrose 55 ml @ 110 mls/hr Q24H IVPB 06/16/19 19:00 06/23/19 18:59 06/20/19 18:51 Dextrose/Sodium Chloride 1,000 ml @ 50 mls/hr Q20H IV 06/16/19 04:00 07/16/19 03:59 06/20/19 09:13 Docusate Sodium (Colace) 100 mg DAILY ORAL 06/16/19 09:00 07/16/19 08:59 06/20/19 09:12 Donepezil HCl (Aricept) 5 mg DAILY ORAL 06/16/19 09:00 07/16/19 08:59 06/20/19 09:11 Enoxaparin Sodium (Lovenox) 40 mg DAILY SUBQ 06/16/19 09:00 09/14/19 08:59 06/20/19 09:11 Furosemide (Lasix) 20 mg DAILY IV 06/16/19 22:00 07/16/19 21:59 06/20/19 09:12 Memantine (Namenda) 10 mg TWICE A DAY ORAL 06/16/19 09:00 07/16/19 08:59 06/20/19 17:44 Metoprolol Succinate (Toprol XL) 25 mg DAILY ORAL 06/19/19 19:15 09/17/19 19:14 06/20/19 09:12 Ondansetron HCl (Zofran) 4 mg Q6H PRN IVP Nausea & Vomiting 06/16/19 03:00 07/16/19 02:59 Polyethylene Glycol (Miralax) 17 gm BEDTIME ORAL 06/17/19 21:00 07/17/19 20:59 06/20/19 21:15 Potassium Chloride (K-Dur) 20 meq DAILY ORAL 06/19/19 09:00 09/17/19 08:59 06/20/19 09:12 Last 24 Hour Vital Signs Date Time Temp Pulse Resp B/P (MAP) Pulse Ox O2 Delivery O2 Flow Rate FiO2 06/21/19 04:00 2.0 06/21/19 04:00 97.1 68 18 122/81 (95) 98 06/21/19 03:49 51 06/21/19 00:00 97.2 66 18 132/84 (100) 98 06/20/19 23:32 58 06/20/19 21:00 Nasal Cannula 2.0 06/20/19 20:00 97.8 67 18 136/92 (107) 97 06/20/19 20:00 2.0 06/20/19 20:00 61 06/20/19 18:00 2.0 06/20/19 16:00 2.0 06/20/19 16:00 61 06/20/19 16:00 97.3 60 18 146/86 (106) 96 06/20/19 12:00 97.4 66 18 127/87 (100) 99 06/20/19 12:00 2.0 06/20/19 12:00 55 06/20/19 09:12 63 147/87 06/20/19 09:00 Nasal Cannula 2.0 06/20/19 08:00 55 06/20/19 08:00 97.8 63 19 147/87 (107) 98 06/20/19 08:00 2.0 06/20/19 04:00 60 06/20/19 04:00 2.0 06/20/19 04:00 98.9 63 19 150/94 (112) 93 06/20/19 00:00 71 06/20/19 00:00 98.3 60 21 158/65 (96) 95 06/19/19 21:12 73 143/89 06/19/19 21:00 Nasal Cannula 2.0 06/19/19 20:00 2.0 06/19/19 20:00 98.1 67 19 139/85 (103) 92 06/19/19 19:01 68 06/19/19 16:00 97.7 69 18 143/89 (107) 96 06/19/19 16:00 73 06/19/19 12:00 96.7 60 19 140/71 (94) 97 06/19/19 12:00 77 06/19/19 09:00 Nasal Cannula 2.0 06/19/19 08:37 59 06/19/19 08:35 98.7 54 20 159/61 (93) 97 Intake and Output 06/20/19 06/21/19 19:00 07:00 Intake Total 170 ml 500 ml Output Total 200 ml Balance -30 ml 500 ml Intake Oral 120 ml IV Total 50 ml 500 ml Output Urine Total 200 ml # Voids 1 Labs Test 06/18/19 06:10 06/18/19 10:58 06/19/19 05:00 06/20/19 04:00 White Blood Count 5.7 K/UL (4.8-10.8) 4.4 K/UL (4.8-10.8) 5.4 K/UL (4.8-10.8) Red Blood Count 4.55 M/UL (4.70-6.10) 4.92 M/UL (4.70-6.10) 4.95 M/UL (4.70-6.10) Hemoglobin 13.8 G/DL (14.2-18.0) 15.0 G/DL (14.2-18.0) 14.9 G/DL (14.2-18.0) Hematocrit 41.4 % (42.0-52.0) 43.8 % (42.0-52.0) 44.9 % (42.0-52.0) Mean Corpuscular Volume 91 FL (80-99) 89 FL (80-99) 91 FL (80-99) Mean Corpuscular Hemoglobin 30.5 PG (27.0-31.0) 30.4 PG (27.0-31.0) 30.1 PG (27.0-31.0) Mean Corpuscular Hemoglobin Concent 33.5 G/DL (32.0-36.0) 34.2 G/DL (32.0-36.0) 33.3 G/DL (32.0-36.0) Red Cell Distribution Width 12.5 % (11.6-14.8) 12.5 % (11.6-14.8) 12.5 % (11.6-14.8) Platelet Count 277 K/UL (150-450) 336 K/UL (150-450) 385 K/UL (150-450) Mean Platelet Volume 5.0 FL (6.5-10.1) 5.1 FL (6.5-10.1) 4.8 FL (6.5-10.1) Neutrophils (%) (Auto) 72.7 % (45.0-75.0) 74.4 % (45.0-75.0) 64.2 % (45.0-75.0) Lymphocytes (%) (Auto) 22.1 % (20.0-45.0) 17.5 % (20.0-45.0) 28.0 % (20.0-45.0) Monocytes (%) (Auto) 4.4 % (1.0-10.0) 6.5 % (1.0-10.0) 6.7 % (1.0-10.0) Eosinophils (%) (Auto) 0.6 % (0.0-3.0) 1.0 % (0.0-3.0) 0.6 % (0.0-3.0) Basophils (%) (Auto) 0.2 % (0.0-2.0) 0.7 % (0.0-2.0) 0.6 % (0.0-2.0) Sodium Level 147 MMOL/L (136-145) 147 MMOL/L (136-145) 149 MMOL/L (136-145) Potassium Level 3.4 MMOL/L (3.5-5.1) 3.1 MMOL/L (3.5-5.1) 3.7 MMOL/L (3.5-5.1) Chloride Level 110 MMOL/L (98-107) 110 MMOL/L (98-107) 112 MMOL/L (98-107) Carbon Dioxide Level 25 MMOL/L (21-32) 27 MMOL/L (21-32) 26 MMOL/L (21-32) Anion Gap 12 mmol/L (5-15) 10 mmol/L (5-15) 11 mmol/L (5-15) Blood Urea Nitrogen 16 mg/dL (7-18) 15 mg/dL (7-18) 13 mg/dL (7-18) Creatinine 0.8 MG/DL (0.55-1.30) 0.7 MG/DL (0.55-1.30) 0.7 MG/DL (0.55-1.30) Estimat Glomerular Filtration Rate > 60 mL/min (>60) > 60 mL/min (>60) > 60 mL/min (>60) Glucose Level 151 MG/DL (74-106) 132 MG/DL (74-106) 136 MG/DL (74-106) Calcium Level 8.5 MG/DL (8.5-10.1) 8.3 MG/DL (8.5-10.1) 8.0 MG/DL (8.5-10.1) Total Bilirubin 0.6 MG/DL (0.2-1.0) 0.6 MG/DL (0.2-1.0) 0.7 MG/DL (0.2-1.0) Aspartate Amino Transf (AST/SGOT) 82 U/L (15-37) 80 U/L (15-37) 79 U/L (15-37) Alanine Aminotransferase (ALT/SGPT) 73 U/L (12-78) 72 U/L (12-78) 77 U/L (12-78) Alkaline Phosphatase 100 U/L (46-116) 107 U/L (46-116) 116 U/L (46-116) Total Protein 7.6 G/DL (6.4-8.2) 7.6 G/DL (6.4-8.2) 7.1 G/DL (6.4-8.2) Albumin 2.0 G/DL (3.4-5.0) 2.1 G/DL (3.4-5.0) 2.1 G/DL (3.4-5.0) Globulin 5.6 g/dL 5.5 g/dL 5.0 g/dL Albumin/Globulin Ratio 0.4 (1.0-2.7) 0.4 (1.0-2.7) 0.4 (1.0-2.7) Pro-B-Type Natriuretic Peptide 1644 pg/mL (0-125) Test 06/21/19 04:00 White Blood Count 4.8 K/UL (4.8-10.8) Red Blood Count 4.62 M/UL (4.70-6.10) Hemoglobin 14.0 G/DL (14.2-18.0) Hematocrit 41.4 % (42.0-52.0) Mean Corpuscular Volume 90 FL (80-99) Mean Corpuscular Hemoglobin 30.4 PG (27.0-31.0) Mean Corpuscular Hemoglobin Concent 33.9 G/DL (32.0-36.0) Red Cell Distribution Width 12.5 % (11.6-14.8) Platelet Count 365 K/UL (150-450) Mean Platelet Volume 5.0 FL (6.5-10.1) Neutrophils (%) (Auto) 64.1 % (45.0-75.0) Lymphocytes (%) (Auto) 23.2 % (20.0-45.0) Monocytes (%) (Auto) 11.2 % (1.0-10.0) Eosinophils (%) (Auto) 1.1 % (0.0-3.0) Basophils (%) (Auto) 0.4 % (0.0-2.0) Sodium Level 147 MMOL/L (136-145) Potassium Level 3.0 MMOL/L (3.5-5.1) Chloride Level 111 MMOL/L (98-107) Carbon Dioxide Level 26 MMOL/L (21-32) Anion Gap 10 mmol/L (5-15) Blood Urea Nitrogen 14 mg/dL (7-18) Creatinine 0.8 MG/DL (0.55-1.30) Estimat Glomerular Filtration Rate > 60 mL/min (>60) Glucose Level 146 MG/DL (74-106) Calcium Level 8.2 MG/DL (8.5-10.1) Phosphorus Level 3.0 MG/DL (2.5-4.9) Magnesium Level 2.1 MG/DL (1.8-2.4) Height (Feet): 5 Height (Inches): 2.00 Weight (Pounds): 61 Objective Physical Exam General: Awake and somewhat confused, no acute distress HEENT: NC/AT. EOMI. Cardiovascular: RRR. S1 and S2 normal. No murmur appreciated Resp: Mild tachypnea, normal work of breathing. On 2 L nasal cannula. Abdomen: Abdomen is soft, nondistended. Nontender Skin: Intact. No abrasions, laceration MSK: Normal tone and bulk. Moving all extremities Neuro: Awake and somewhat confused. Poor historian Geraldo Galvez MD Jun 21, 2019 06:07
[2019-06-21] MEDS: D5NS 1,000 ML IV SCH (06:35)
--- NOTE | 2019-06-21 07:27 | NUR ---
HAND-OFF: Report given to MANOLO Carrera. Patient is awake, on stable condition. RN made aware on the laboratory result and told her that I texted Dr. Malhotra and Dr. Quiroga for any electrolyte replacement, awaiting for the orders. Plan of care endorsed.
--- NOTE | 2019-06-21 07:30 | NUR ---
NURSE NOTES: Received report from MANOLO Jerez in bed resting, no s/s of pain, cardiac, or respiratory distress noticed at this time. Patient AAOx2, on room air. IV on left FA 20G, asymptomatic, patent, intact. Bed in lowest position, side rails up x3, call light within reach, bed alarm on. Will continue with the plan of care
[2019-06-21 08:00] VITALS: BP 164/88
--- NOTE | 2019-06-21 09:33 | General Progress Note ---
Assessment/Plan Status: progressing Assessment/Plan: 1. History of dementia. 2. CHF. 3. Hypertension. 4. BPH. 5. Constipation. 6. elevated LFTS 7. AMI improving LFTS hep C positive>>> will send HCV RNA and patient needs out patient fu for treatment fu cardiology repeat labs in am needs PEG but will wait until COVID isolation is off will add Remeron Subjective ROS Limited/Unobtainable: No Allergies: Coded Allergies: No Known Allergies (Unverified , 06/15/19) Objective Last 24 Hour Vital Signs Date Time Temp Pulse Resp B/P (MAP) Pulse Ox O2 Delivery O2 Flow Rate FiO2 06/21/19 04:00 2.0 06/21/19 04:00 97.1 68 18 122/81 (95) 98 06/21/19 03:49 51 06/21/19 00:00 97.2 66 18 132/84 (100) 98 06/20/19 23:32 58 06/20/19 21:00 Nasal Cannula 2.0 06/20/19 20:00 97.8 67 18 136/92 (107) 97 06/20/19 20:00 2.0 06/20/19 20:00 61 06/20/19 18:00 2.0 06/20/19 16:00 2.0 06/20/19 16:00 61 06/20/19 16:00 97.3 60 18 146/86 (106) 96 06/20/19 12:00 97.4 66 18 127/87 (100) 99 06/20/19 12:00 2.0 06/20/19 12:00 55 Intake and Output 06/20/19 06/21/19 19:00 07:00 Intake Total 170 ml 550 ml Output Total 200 ml Balance -30 ml 550 ml Intake Oral 120 ml IV Total 50 ml 550 ml Output Urine Total 200 ml # Voids 1 2 Laboratory Tests 06/21/19 04:00: White Blood Count 4.8, Red Blood Count 4.62L, Hemoglobin 14.0L, Hematocrit 41.4L , Mean Corpuscular Volume 90, Mean Corpuscular Hemoglobin 30.4, Mean Corpuscular Hemoglobin Concent 33.9, Red Cell Distribution Width 12.5, Platelet Count 365, Mean Platelet Volume 5.0L, Neutrophils (%) (Auto) 64.1, Lymphocytes ( %) (Auto) 23.2, Monocytes (%) (Auto) 11.2H, Eosinophils (%) (Auto) 1.1, Basophils (%) (Auto) 0.4, Sodium Level 147H, Potassium Level 3.0L, Chloride Level 111H, Carbon Dioxide Level 26, Anion Gap 10, Blood Urea Nitrogen 14, Creatinine 0.8, Estimat Glomerular Filtration Rate > 60, Glucose Level 146H, Calcium Level 8.2L, Phosphorus Level 3.0, Magnesium Level 2.1 Height (Feet): 5 Height (Inches): 2.00 Weight (Pounds): 61 General Appearance: no apparent distress EENT: normal ENT inspection Neck: supple Cardiovascular: normal rate Respiratory/Chest: decreased breath sounds Abdomen: normal bowel sounds, non tender, soft Extremities: non-tender Perry Quiroga MD Jun 21, 2019 09:33
[2019-06-21] MEDS: Donepezil 5mg Tab ORAL SCH (09:51)
[2019-06-21] MEDS: Docusate 100mg cap ORAL SCH (09:51)
[2019-06-21] MEDS: Memantine 10mg tab ORAL SCH ×2 (09:51→18:18)
[2019-06-21] MEDS: Aspirin Baby 81mg ORAL SCH (09:51)
[2019-06-21] MEDS: Metoprolol Succinate XL 25mg tab ORAL SCH (09:53)
[2019-06-21] MEDS: Enoxaparin 40mg Inj SUBQ SCH (09:53)
--- NOTE | 2019-06-21 11:12 | Infectious Diseases Prog Note ---
Assessment/Plan Assessment/Plan IMPRESSION: COIVD19 Pneumonia, Cholelithiasis and elevated transaminase level, acidosis, dementia with behavioral problem. RECOMMENDATION: We will continue with ceftriaxone and Zithromax. We will repeat COVID19 tests. If the condition become worse, we will start hydroxychloroquine. Subjective ROS Limited/Unobtainable: Yes Constitutional: Reports: other - poor appetite Respiratory: Reports: other - no cough Allergies: Coded Allergies: No Known Allergies (Unverified , 06/15/19) Objective Vital Signs Last 24 Hour Vital Signs Date Time Temp Pulse Resp B/P (MAP) Pulse Ox O2 Delivery O2 Flow Rate FiO2 06/21/19 09:53 55 164/88 06/21/19 04:00 2.0 06/21/19 04:00 97.1 68 18 122/81 (95) 98 06/21/19 03:49 51 06/21/19 00:00 97.2 66 18 132/84 (100) 98 06/20/19 23:32 58 06/20/19 21:00 Nasal Cannula 2.0 06/20/19 20:00 97.8 67 18 136/92 (107) 97 06/20/19 20:00 2.0 06/20/19 20:00 61 06/20/19 18:00 2.0 06/20/19 16:00 2.0 06/20/19 16:00 61 06/20/19 16:00 97.3 60 18 146/86 (106) 96 06/20/19 12:00 97.4 66 18 127/87 (100) 99 06/20/19 12:00 2.0 06/20/19 12:00 55 Height (Feet): 5 Height (Inches): 2.00 Weight (Pounds): 61 General Appearance: no acute distress HEENT: mucous membranes moist Respiratory/Chest: lungs clear Cardiovascular: normal rate Abdomen: soft, non tender Extremities: no edema Neurologic/Psychiatric: disoriented Laboratory Tests Test 06/21/19 04:00 White Blood Count 4.8 K/UL (4.8-10.8) Red Blood Count 4.62 M/UL (4.70-6.10) L Hemoglobin 14.0 G/DL (14.2-18.0) L Hematocrit 41.4 % (42.0-52.0) L Mean Corpuscular Volume 90 FL (80-99) Mean Corpuscular Hemoglobin 30.4 PG (27.0-31.0) Mean Corpuscular Hemoglobin Concent 33.9 G/DL (32.0-36.0) Red Cell Distribution Width 12.5 % (11.6-14.8) Platelet Count 365 K/UL (150-450) Mean Platelet Volume 5.0 FL (6.5-10.1) L Neutrophils (%) (Auto) 64.1 % (45.0-75.0) Lymphocytes (%) (Auto) 23.2 % (20.0-45.0) Monocytes (%) (Auto) 11.2 % (1.0-10.0) H Eosinophils (%) (Auto) 1.1 % (0.0-3.0) Basophils (%) (Auto) 0.4 % (0.0-2.0) Sodium Level 147 MMOL/L (136-145) H Potassium Level 3.0 MMOL/L (3.5-5.1) L Chloride Level 111 MMOL/L (98-107) H Carbon Dioxide Level 26 MMOL/L (21-32) Anion Gap 10 mmol/L (5-15) Blood Urea Nitrogen 14 mg/dL (7-18) Creatinine 0.8 MG/DL (0.55-1.30) Estimat Glomerular Filtration Rate > 60 mL/min (>60) Glucose Level 146 MG/DL (74-106) H Calcium Level 8.2 MG/DL (8.5-10.1) L Phosphorus Level 3.0 MG/DL (2.5-4.9) Magnesium Level 2.1 MG/DL (1.8-2.4) Current Medications Medications (Trade) Dose Ordered Sig/Kaylan Route PRN Reason Start Time Stop Time Status Last Admin Dose Admin Acetaminophen (Tylenol) 500 mg Q6H PRN ORAL For Pain 06/16/19 00:15 07/16/19 00:14 Acetaminophen (Tylenol) 650 mg Q6H PRN ORAL For Headache 06/16/19 03:00 07/16/19 02:59 Albuterol Sulfate (Proventil MDI) 2 puff Q6H PRN INH Shortness of Breath 06/16/19 03:00 09/14/19 02:59 Aspirin (ASA) 81 mg DAILY ORAL 06/16/19 09:00 07/31/19 08:59 06/21/19 09:51 Azithromycin 500 mg/Dextrose 275 ml @ 275 mls/hr Q24HRS IV 06/16/19 18:00 06/22/19 18:59 06/20/19 17:47 Ceftriaxone Sodium 1 gm/ Dextrose 55 ml @ 110 mls/hr Q24H IVPB 06/16/19 19:00 06/23/19 18:59 06/20/19 18:51 Dextrose/Sodium Chloride 1,000 ml @ 50 mls/hr Q20H IV 06/16/19 04:00 07/16/19 03:59 06/21/19 06:35 Docusate Sodium (Colace) 100 mg DAILY ORAL 06/16/19 09:00 07/16/19 08:59 06/21/19 09:51 Donepezil HCl (Aricept) 5 mg DAILY ORAL 06/16/19 09:00 07/16/19 08:59 06/21/19 09:51 Enoxaparin Sodium (Lovenox) 40 mg DAILY SUBQ 06/16/19 09:00 09/14/19 08:59 06/21/19 09:53 Furosemide (Lasix) 20 mg DAILY IV 06/16/19 22:00 07/16/19 21:59 06/21/19 09:52 Memantine (Namenda) 10 mg TWICE A DAY ORAL 06/16/19 09:00 07/16/19 08:59 06/21/19 09:51 Metoprolol Succinate (Toprol XL) 25 mg DAILY ORAL 06/19/19 19:15 09/17/19 19:14 06/21/19 09:53 Mirtazapine (Remeron) 15 mg BEDTIME ORAL 06/21/19 21:00 09/19/19 20:59 Ondansetron HCl (Zofran) 4 mg Q6H PRN IVP Nausea & Vomiting 06/16/19 03:00 07/16/19 02:59 Polyethylene Glycol (Miralax) 17 gm BEDTIME ORAL 06/17/19 21:00 07/17/19 20:59 06/20/19 21:15 Potassium Chloride (K-Dur) 20 meq DAILY ORAL 06/19/19 09:00 09/17/19 08:59 06/21/19 09:52 Benigno Betancourt MD Jun 21, 2019 11:12
[2019-06-21 12:00] VITALS: BP 154/87
--- NOTE | 2019-06-21 15:49 | NUR ---
ST NOTES: SWALLOW STATUS: PATIENT SEEN FOR DYSPHAGIA, SEE SWALLOW EVALUATION REPORT. PER STAFF (RN/AZUL AND LISA/RUDY), PATIENT IS REFUSING PO INTAKE MOST OF THE TIME. THE LAST MEAL ON 06/17/19 HE TOOK ONLY 25%. GI MD, DR KAMINSKI AWARE OF NEED FOR PEG WHEN COVID 19 R/O. GOALS MET FOR STAFF EDUCATED/TRAINED ON ASP PRECAUTIONS. ST TALKED TO DR KAMINSKI ABOUT PLACING A 12 [place] NGT FOR NOW SINCE POOR INTAKE TO NO INTAKE FOR AT LEAST A WEEK SINCE ADMIT (06/15/19). PATIENT IS NOT APPROPRIATE FOR MOD BARIUM SWALLOW STUDY DUE TO REFUSING PO TRIALS. PLAN: NO PO FOR NOW, DR KAMINSKI TO PLACE NGT (PEG PLANNED WHEN COVID 19 R/O) ST TOLD RD NEED FOR TUBE FEEDING RECOMMENDATIONS CONTINUE WITH ORAL CARE AND WHEN NGT PLACED WILL NEED ASPIRATION PRECAUTIONS WHEN TUBE FEEDINGS ARE RUNNING (HOB >30 DEGREES). Addendum: 06/21/19 at 1601 by SANDI WARE FIRE BATTALION CHIEF UPDATED/REVISED ST NOTES: SWALLOW STATUS: PATIENT SEEN FOR DYSPHAGIA, SEE SWALLOW EVALUATION REPORT. PER STAFF (RN/AZUL AND LISA/RUDY), PATIENT IS REFUSING PO INTAKE MOST OF THE TIME. WHEN HE DOES TAKE PO, HE WILL HAVE ORAL RESIDUE OR SPIT OUT THE FOOD (CURRENTLY ON A LIQUIFIED PUREED LIKE NECTAR THICK SOUP DIET WITH NECTAR THICK LIQUIDS). HE TOOK ONLY 25% ON 06/16/18 BUT HE HAS HAD ONLY MIN TO NO INTAKE FOR THE LAST WEEK. DR KAMINSKI (GI) AWARE OF NEED FOR PEG WHEN COVID 19 R/O. GOALS MET FOR STAFF EDUCATED/TRAINED ON ASP PRECAUTIONS. ST TALKED TO DR KAMINSKI ABOUT PLACING A 12 [place] NGT FOR NOW. SINCE MANOLO LIANG, IS ON BREAK, MACHINE STONE POLISHER, [place] ORDERED NGT TO BE PLACED AT THE BEDSIDE FOR DR KAMINSKI. PT IS NOW NPO WITH NONORAL FEEDINGS. PATIENT IS NOT APPROPRIATE FOR MOD BARIUM SWALLOW STUDY DUE TO REFUSING PO TRIALS. PLAN: NO PO FOR NOW, DR KAMINSKI TO PLACE NGT (PEG PLANNED WHEN COVID 19 R/O) ST TOLD RD NEED FOR TUBE FEEDING RECOMMENDATIONS CONTINUE WITH ORAL CARE AND WHEN NGT PLACED WILL NEED ASPIRATION PRECAUTIONS WHEN TUBE FEEDINGS ARE RUNNING (HOB >30 DEGREES).
[2019-06-21 16:00] VITALS: BP 148/86
--- NOTE | 2019-06-21 18:12 | Pulmonology Progress Note ---
Assessment/Plan Assessment/Plan Pulmonary Progress Note HPI: Patient is a 88-year-old male history of Dementia, Congestive Heart Failure , admitted from alf facility with Pneumonia, COVID 19 positive, noted to have fever and shortness of breath, chest congestion and tightness for 2 days. Noted to be confused in the ED. Has been febrile with low-grade temperatures for the past 2 days. Denies vomiting or diarrhea or abdominal pain. Stable O2 requirements - 2L NC, stable Pulmonary Status PMH: Dementia, Congestive Heart Failure Social Hx: Group Home Resident FHx: [place] Allergies: No Known Allergies All Other Systems: limited - AMS Physical Exam Vital signs noted General: Awake and somewhat confused, no acute distress HEENT: NC/AT. EOMI. Cardiovascular: RRR. S1 and S2 normal. No murmur appreciated Resp: Mild tachypnea, normal work of breathing. On 2 L nasal cannula. No cough Abdomen: Abdomen is soft, nondistended. Nontender Skin: Intact. No abrasions, laceration or rash noted MSK: Normal tone and bulk. Moving all extremities. No obvious deformity. Neuro: Awake and somewhat confused. Poor historian. No focal signs Impression: Pneumonia Suspected 2019 novel coronavirus infection Elevated troponin Elevated LFTs Lymphopenia Dementia Congestive Heart Failure Group Home Resident Plan Antibiotics/antivirals per ID O2 PRN Albuterol MDI PRN PPX - Lovenox ASA Monitor labs - hypokalemia - s/p supplementation Monitor cultures/viral studies Ultrasound of the abdomen pending. Isolation for suspected COVID-19 infection Laboratory Tests noted EKG Rate: normal Rhythm: NSR ST Segments: no acute changes Sinus rhythm, left axis deviation. Occasional PACs. T wave inversions, no ST segment changes Chest X-Ray: Consolidations in the left lower lobe may represent an early pneumonia. No effusion. Current CXR stable infiltrates . Subjective ROS Limited/Unobtainable: No Constitutional: Reports: other - poor appetite Respiratory: Reports: shortness of breath Allergies: Coded Allergies: No Known Allergies (Unverified , 06/15/19) Objective Last 24 Hour Vital Signs Date Time Temp Pulse Resp B/P (MAP) Pulse Ox O2 Delivery O2 Flow Rate FiO2 06/21/19 16:00 2.0 06/21/19 16:00 97.3 66 20 148/86 (106) 97 06/21/19 16:00 76 06/21/19 12:00 2.0 06/21/19 12:00 97.8 47 20 154/87 (109) 96 06/21/19 12:00 47 06/21/19 09:53 55 164/88 06/21/19 09:00 Nasal Cannula 2.0 06/21/19 08:00 49 06/21/19 08:00 97.3 49 18 164/88 (113) 98 06/21/19 08:00 2.0 06/21/19 07:00 98 Nasal Cannula 2.0 28 06/21/19 07:00 68 18 98 Nasal Cannula 2.0 28 06/21/19 04:00 2.0 06/21/19 04:00 97.1 68 18 122/81 (95) 98 06/21/19 03:49 51 06/21/19 00:00 97.2 66 18 132/84 (100) 98 06/20/19 23:32 58 06/20/19 21:00 Nasal Cannula 2.0 06/20/19 20:00 97.8 67 18 136/92 (107) 97 06/20/19 20:00 2.0 06/20/19 20:00 61 Intake and Output 06/20/19 06/21/19 19:00 07:00 Intake Total 170 ml 550 ml Output Total 200 ml Balance -30 ml 550 ml Intake Oral 120 ml IV Total 50 ml 550 ml Output Urine Total 200 ml # Voids 1 2 General Appearance: no acute distress HEENT: mucous membranes moist Abdomen: soft, non tender Extremities: no edema Neurologic/Psychiatric: disoriented Laboratory Tests 06/21/19 04:00: White Blood Count 4.8, Red Blood Count 4.62L, Hemoglobin 14.0L, Hematocrit 41.4L , Mean Corpuscular Volume 90, Mean Corpuscular Hemoglobin 30.4, Mean Corpuscular Hemoglobin Concent 33.9, Red Cell Distribution Width 12.5, Platelet Count 365, Mean Platelet Volume 5.0L, Neutrophils (%) (Auto) 64.1, Lymphocytes ( %) (Auto) 23.2, Monocytes (%) (Auto) 11.2H, Eosinophils (%) (Auto) 1.1, Basophils (%) (Auto) 0.4, Sodium Level 147H, Potassium Level 3.0L, Chloride Level 111H, Carbon Dioxide Level 26, Anion Gap 10, Blood Urea Nitrogen 14, Creatinine 0.8, Estimat Glomerular Filtration Rate > 60, Glucose Level 146H, Calcium Level 8.2L, Phosphorus Level 3.0, Magnesium Level 2.1 Current Medications Medications (Trade) Dose Ordered Sig/Kaylan Route PRN Reason Start Time Stop Time Status Last Admin Dose Admin Acetaminophen (Tylenol) 500 mg Q6H PRN ORAL For Pain 06/16/19 00:15 07/16/19 00:14 Acetaminophen (Tylenol) 650 mg Q6H PRN ORAL For Headache 06/16/19 03:00 07/16/19 02:59 Albuterol Sulfate (Proventil MDI) 2 puff Q6H PRN INH Shortness of Breath 06/16/19 03:00 09/14/19 02:59 Aspirin (ASA) 81 mg DAILY ORAL 06/16/19 09:00 07/31/19 08:59 06/21/19 09:51 Azithromycin 500 mg/Dextrose 275 ml @ 275 mls/hr Q24HRS IV 06/16/19 18:00 06/22/19 18:59 06/20/19 17:47 Ceftriaxone Sodium 1 gm/ Dextrose 55 ml @ 110 mls/hr Q24H IVPB 06/16/19 19:00 06/23/19 18:59 06/20/19 18:51 Dextrose/Sodium Chloride 1,000 ml @ 50 mls/hr Q20H IV 06/16/19 04:00 07/16/19 03:59 06/21/19 06:35 Docusate Sodium (Colace) 100 mg DAILY ORAL 06/16/19 09:00 07/16/19 08:59 06/21/19 09:51 Donepezil HCl (Aricept) 5 mg DAILY ORAL 06/16/19 09:00 07/16/19 08:59 06/21/19 09:51 Enoxaparin Sodium (Lovenox) 40 mg DAILY SUBQ 06/16/19 09:00 09/14/19 08:59 06/21/19 09:53 Furosemide (Lasix) 20 mg DAILY IV 06/16/19 22:00 07/16/19 21:59 06/21/19 09:52 Memantine (Namenda) 10 mg TWICE A DAY ORAL 06/16/19 09:00 07/16/19 08:59 06/21/19 09:51 Metoprolol Succinate (Toprol XL) 25 mg DAILY ORAL 06/19/19 19:15 09/17/19 19:14 06/21/19 09:53 Mirtazapine (Remeron) 15 mg BEDTIME ORAL 06/21/19 21:00 09/19/19 20:59 Ondansetron HCl (Zofran) 4 mg Q6H PRN IVP Nausea & Vomiting 06/16/19 03:00 07/16/19 02:59 Polyethylene Glycol (Miralax) 17 gm BEDTIME ORAL 06/17/19 21:00 07/17/19 20:59 06/20/19 21:15 Potassium Chloride (K-Dur) 20 meq DAILY ORAL 06/19/19 09:00 09/17/19 08:59 06/21/19 09:52 Andrew Diaz MD Jun 21, 2019 18:12
[2019-06-21] MEDS: Azithromycin 500 MG in D5W 275 ML IV SCH (18:18)
--- NOTE | 2019-06-21 19:29 | NUR ---
HAND-OFF: Report given to Meri FRENCH. Patient is in stable condition. There is plan to have NGT placed tomorrow pending G Tube placement.Endorsed to hotel night auditor nurse to get consent. Patient is in a stable condition.
--- NOTE | 2019-06-21 19:37 | NUR ---
NURSE NOTES: Received report from MANOLO Carrera. Patient is awake, alert and oriented x 2. Patient is on regular diet, pureed-like soup nectar thick, thin liquids, Ensure three times a day for additional supplement, 1:1 feed assist, crush medications. hospital monitor is on, shows sinus rhythm with no respiratory distress noted at this time. No complaints made at the moment nor chest pain. IV site is on left forearm g-20 with IVF of D5NS @ 50cc/hour that is intact, patent and asymptomatic. On aspiration, fall precaution, bilateral soft wrist restraints in on, assessment done every 2 hours. Safety measures were in placed, bed in low and locked position. Side rails up x 2, bed alarm is on. For NGT placement tomorrow by Dr. Quiroga. Will call the family for the consent. Will continue plan of care.
[2019-06-21 20:00] VITALS: BP 155/69
--- NOTE | 2019-06-21 20:10 | Cardiology Progress Note ---
Assessment/Plan Assessment/Plan 1. Dyspnea due to possibly combination of COVID-19 pneumonia in addition to with acute congestive heart failure in face of elevated proBNP, continue lasix and metoprolol. Awaiting 2D echocardiography to verify heart failure. 2. Possible [id number] myocardial infarction or elevated troponin I level could be secondary to myonecrosis that is seen in congestive heart failure. 3. HCV infection. Subjective Subjective Sinus rhythm at rate of 66. Objective Last 24 Hour Vital Signs Date Time Temp Pulse Resp B/P (MAP) Pulse Ox O2 Delivery O2 Flow Rate FiO2 06/21/19 16:00 2.0 06/21/19 16:00 97.3 66 20 148/86 (106) 97 06/21/19 16:00 76 06/21/19 12:00 2.0 06/21/19 12:00 97.8 47 20 154/87 (109) 96 06/21/19 12:00 47 06/21/19 09:53 55 164/88 06/21/19 09:00 Nasal Cannula 2.0 06/21/19 08:00 49 06/21/19 08:00 97.3 49 18 164/88 (113) 98 06/21/19 08:00 2.0 06/21/19 07:00 98 Nasal Cannula 2.0 28 06/21/19 07:00 68 18 98 Nasal Cannula 2.0 28 06/21/19 04:00 2.0 06/21/19 04:00 97.1 68 18 122/81 (95) 98 06/21/19 03:49 51 06/21/19 00:00 97.2 66 18 132/84 (100) 98 06/20/19 23:32 58 06/20/19 21:00 Nasal Cannula 2.0 Intake and Output 06/20/19 06/21/19 19:00 07:00 Intake Total 170 ml 550 ml Output Total 200 ml Balance -30 ml 550 ml Intake Oral 120 ml IV Total 50 ml 550 ml Output Urine Total 200 ml # Voids 1 2 Laboratory Tests Test 06/21/19 04:00 White Blood Count 4.8 K/UL (4.8-10.8) Red Blood Count 4.62 M/UL (4.70-6.10) L Hemoglobin 14.0 G/DL (14.2-18.0) L Hematocrit 41.4 % (42.0-52.0) L Mean Corpuscular Volume 90 FL (80-99) Mean Corpuscular Hemoglobin 30.4 PG (27.0-31.0) Mean Corpuscular Hemoglobin Concent 33.9 G/DL (32.0-36.0) Red Cell Distribution Width 12.5 % (11.6-14.8) Platelet Count 365 K/UL (150-450) Mean Platelet Volume 5.0 FL (6.5-10.1) L Neutrophils (%) (Auto) 64.1 % (45.0-75.0) Lymphocytes (%) (Auto) 23.2 % (20.0-45.0) Monocytes (%) (Auto) 11.2 % (1.0-10.0) H Eosinophils (%) (Auto) 1.1 % (0.0-3.0) Basophils (%) (Auto) 0.4 % (0.0-2.0) Sodium Level 147 MMOL/L (136-145) H Potassium Level 3.0 MMOL/L (3.5-5.1) L Chloride Level 111 MMOL/L (98-107) H Carbon Dioxide Level 26 MMOL/L (21-32) Anion Gap 10 mmol/L (5-15) Blood Urea Nitrogen 14 mg/dL (7-18) Creatinine 0.8 MG/DL (0.55-1.30) Estimat Glomerular Filtration Rate > 60 mL/min (>60) Glucose Level 146 MG/DL (74-106) H Calcium Level 8.2 MG/DL (8.5-10.1) L Phosphorus Level 3.0 MG/DL (2.5-4.9) Magnesium Level 2.1 MG/DL (1.8-2.4) Objective HEENT: Atraumatic and normocephalic. Anicteric. Pupils are equal, round, and reactive to light and accommodation. Extraocular muscles intact. NECK: JVP is less than 5 cm. No carotid bruit. Carotid upstroke is 2+ bilaterally. CARDIOVASCULAR: Normal S1 and S2. Regular rate and rhythm. No murmurs, gallops, or rubs. PMI is at fourth intercostal space at midclavicular line. LUNGS: Diminished breath sounds in both bases with associated crackles. ABDOMEN: Soft, nontender, and nondistended. No hepatosplenomegaly. Positive bowel sounds. EXTREMITIES: No evidence of edema, clubbing, or cyanosis. Rolf Moreno MD Jun 21, 2019 20:10
[2019-06-21] MEDS: Miralax 17gm pkt ORAL SCH (20:18)
[2019-06-21] MEDS: cefTRIAXone 1 GM in D5W 55 ML IVPB SCH (20:18)
--- NOTE | 2019-06-21 22:46 | General Progress Note ---
Assessment/Plan Problem List: (1) Elevated troponin ICD Codes: R79.89 - Other specified abnormal findings of blood chemistry SNOMED: 467139736, 387914548, 291822003 (2) Elevated LFTs ICD Codes: R79.89 - Other specified abnormal findings of blood chemistry SNOMED: 573318943, 095649160, 648461180 (3) Pneumonia ICD Codes: J18.9 - Pneumonia, unspecified organism SNOMED: 985879952, 914789611, 828907679 (4) Suspected 2019 novel coronavirus infection ICD Codes: R68.89 - Other general symptoms and signs SNOMED: 144472707 Status: progressing Assessment/Plan: covid positive pna peristent low k r mildly elevated lft.improved no cp afebrile reviewed chart and labs Subjective Allergies: Coded Allergies: No Known Allergies (Unverified , 06/15/19) Objective Last 24 Hour Vital Signs Date Time Temp Pulse Resp B/P (MAP) Pulse Ox O2 Delivery O2 Flow Rate FiO2 06/21/19 20:00 60 06/21/19 16:00 2.0 06/21/19 16:00 97.3 66 20 148/86 (106) 97 06/21/19 16:00 76 06/21/19 12:00 2.0 06/21/19 12:00 97.8 47 20 154/87 (109) 96 06/21/19 12:00 47 06/21/19 09:53 55 164/88 06/21/19 09:00 Nasal Cannula 2.0 06/21/19 08:00 49 06/21/19 08:00 97.3 49 18 164/88 (113) 98 06/21/19 08:00 2.0 06/21/19 07:00 98 Nasal Cannula 2.0 28 06/21/19 07:00 68 18 98 Nasal Cannula 2.0 28 06/21/19 04:00 2.0 06/21/19 04:00 97.1 68 18 122/81 (95) 98 06/21/19 03:49 51 06/21/19 00:00 97.2 66 18 132/84 (100) 98 06/20/19 23:32 58 Intake and Output 06/20/19 06/21/19 19:00 07:00 Intake Total 170 ml 550 ml Output Total 200 ml Balance -30 ml 550 ml Intake Oral 120 ml IV Total 50 ml 550 ml Output Urine Total 200 ml # Voids 1 2 Laboratory Tests 06/21/19 04:00: White Blood Count 4.8, Red Blood Count 4.62L, Hemoglobin 14.0L, Hematocrit 41.4L , Mean Corpuscular Volume 90, Mean Corpuscular Hemoglobin 30.4, Mean Corpuscular Hemoglobin Concent 33.9, Red Cell Distribution Width 12.5, Platelet Count 365, Mean Platelet Volume 5.0L, Neutrophils (%) (Auto) 64.1, Lymphocytes ( %) (Auto) 23.2, Monocytes (%) (Auto) 11.2H, Eosinophils (%) (Auto) 1.1, Basophils (%) (Auto) 0.4, Sodium Level 147H, Potassium Level 3.0L, Chloride Level 111H, Carbon Dioxide Level 26, Anion Gap 10, Blood Urea Nitrogen 14, Creatinine 0.8, Estimat Glomerular Filtration Rate > 60, Glucose Level 146H, Calcium Level 8.2L, Phosphorus Level 3.0, Magnesium Level 2.1 Height (Feet): 5 Height (Inches): 2.00 Weight (Pounds): 61 Gorge Malhotra MD Jun 21, 2019 22:46
[2019-06-22] VITALS: BP 157/81
[2019-06-22 04:00] VITALS: BP 148/95
[2019-06-22 05:17] LABS: BASOPHILS % (AUTO) 0.7 % (0.0-2.0); EOSINOPHILS % (AUTO) 0.2 % (0.0-3.0); HEMOGLOBIN 14.8 G/DL (14.2-18.0); LYMPHOCYTES % (AUTO) 26.4 % (20.0-45.0); MEAN CORPUSCULAR VOLUME 90 FL (80-99); MONOCYTES % (AUTO) 8.7 % (1.0-10.0); NEUTROPHILS % (AUTO) 64.1 % (45.0-75.0); PLATELET COUNT 410 K/UL (150-450); RED BLOOD COUNT 4.88 M/UL (4.70-6.10); RED CELL DISTRIBUTION WIDTH 12.3 % (11.6-14.8)
[2019-06-22 05:54] LABS: ALANINE AMINOTRANSFERASE 79 U/L (12-78); ALBUMIN 1.9 G/DL (3.4-5.0); ALBUMIN/GLOBULIN RATIO 0.4 (1.0-2.7); ALKALINE PHOSPHATASE 100 U/L (46-116); ANION GAP -1 mmol/L (5-15); ASPARTATE AMINO TRANSFERASE 125 U/L (15-37); BILIRUBIN,TOTAL 0.5 MG/DL (0.2-1.0); BLOOD UREA NITROGEN 11 mg/dL (7-18); CARBON DIOXIDE 30 MMOL/L (21-32); CHLORIDE 98 MMOL/L (98-107); CHOLESTEROL 84 MG/DL (< 200); CREATININE 0.8 MG/DL (0.55-1.30); FERRITIN 818 NG/ML (8-388); HDL CHOLESTEROL 26 MG/DL (40-60); SODIUM 128 MMOL/L (136-145); TRIGLYCERIDES 87 MG/DL (30-150)
--- NOTE | 2019-06-22 06:09 | Hematology/Onc Progress Note ---
Assessment/Plan Assessment/Plan Assessment and Plan: # Leukopenia -- multiple etiologies could be related to underlying liver disease , medication-induced, infection versus viral syndrome, in this case likely due to COVID19+, and Hep C+ --> peripheral smear has been ordered and does not show significant abnormalities --> Medications have been reviewed --> Continue to monitor for improvement, trend cbc --> Hep panel and HIV have been ordered--> cw hep C++ exposure --> US abd ordered to r/o cirrhosis and hepatosplenomegaly --> none noted --> reverse isolation if ANC is <2000 --> Give neupogen if ANC <1000 # Suspected 2019 novel coronavirus infection --> per id, on plaq, abx --> iso --> pulm eval recs noted # Pneumonia --> on abx # Elevated troponin ==> nstemi per cards # Elevated LFTs --> likely hep C related The timing of this note does not necessarily reflect the time of the patient was seen. Greatly appreciate consultation. Subjective HEENT: Denies: no symptoms, eye pain, blurred vision, tearing, double vision, ear pain, ear discharge, nose pain, nose congestion, throat pain, throat swelling, mouth pain, mouth swelling, other Cardiovascular: Denies: no symptoms, chest pain, edema, irregular heart rate, lightheadedness, palpitations, syncope, other Respiratory: Denies: no symptoms, cough, shortness of breath, SOB with excertion, SOB at rest, sputum, wheezing, other Gastrointestinal/Abdominal: Denies: no symptoms, abdomen distended, abdominal pain, black stools, tarry stools, blood in stool, constipated, diarrhea, difficulty swallowing, nausea, poor appetite, poor fluid intake, rectal bleeding , vomiting, other Genitourinary: Denies: no symptoms, burning, discharge, frequency, flank pain, hematuria, incontinence, pain, urgency, other Neurologic/Psychiatric: Denies: no symptoms, anxiety, depressed, emotional problems, headache, numbness, paresthesia, pre-existing deficit, seizure, tingling, tremors, weakness, other Endocrine: Denies: no symptoms, excessive sweating, flushing, intolerance to cold, intolerance to heat, increased hunger, increased thirst, increased urine, unexplained weight gain, unexplained weight loss, other Allergies: Coded Allergies: No Known Allergies (Unverified , 06/15/19) Subjective 06/20 breathing is better, on iso for covid 19, wbc improved 06/21 labs better, no bleeding, no f/c, meds noted, hcv+ Objective Objective Current Medications Medications (Trade) Dose Ordered Sig/Kaylan Route PRN Reason Start Time Stop Time Status Last Admin Dose Admin Acetaminophen (Tylenol) 500 mg Q6H PRN ORAL For Pain 06/16/19 00:15 07/16/19 00:14 Acetaminophen (Tylenol) 650 mg Q6H PRN ORAL For Headache 06/16/19 03:00 07/16/19 02:59 Albuterol Sulfate (Proventil MDI) 2 puff Q6H PRN INH Shortness of Breath 06/16/19 03:00 09/14/19 02:59 Aspirin (ASA) 81 mg DAILY ORAL 06/16/19 09:00 07/31/19 08:59 06/21/19 09:51 Azithromycin 500 mg/Dextrose 275 ml @ 275 mls/hr Q24HRS IV 06/16/19 18:00 06/22/19 18:59 06/21/19 18:18 Ceftriaxone Sodium 1 gm/ Dextrose 55 ml @ 110 mls/hr Q24H IVPB 06/16/19 19:00 06/23/19 18:59 06/21/19 20:18 Docusate Sodium (Colace) 100 mg DAILY ORAL 06/16/19 09:00 07/16/19 08:59 06/21/19 09:51 Donepezil HCl (Aricept) 5 mg DAILY ORAL 06/16/19 09:00 07/16/19 08:59 06/21/19 09:51 Enoxaparin Sodium (Lovenox) 40 mg DAILY SUBQ 06/16/19 09:00 09/14/19 08:59 06/21/19 09:53 Memantine (Namenda) 10 mg TWICE A DAY ORAL 06/16/19 09:00 07/16/19 08:59 06/21/19 18:18 Metoprolol Succinate (Toprol XL) 25 mg DAILY ORAL 06/19/19 19:15 09/17/19 19:14 06/21/19 09:53 Mirtazapine (Remeron) 15 mg BEDTIME ORAL 06/21/19 21:00 09/19/19 20:59 06/21/19 20:18 Ondansetron HCl (Zofran) 4 mg Q6H PRN IVP Nausea & Vomiting 06/16/19 03:00 07/16/19 02:59 Polyethylene Glycol (Miralax) 17 gm BEDTIME ORAL 06/17/19 21:00 07/17/19 20:59 06/21/19 20:18 Potassium Chloride 40 meq/ Dextrose 1,020 ml @ 50 mls/hr [id number] IV 06/21/19 21:30 07/21/19 21:29 06/21/19 22:01 Potassium Chloride (K-Dur) 20 meq DAILY ORAL 06/19/19 09:00 09/17/19 08:59 06/21/19 09:52 Last 24 Hour Vital Signs Date Time Temp Pulse Resp B/P (MAP) Pulse Ox O2 Delivery O2 Flow Rate FiO2 06/22/19 04:00 98.4 56 18 148/95 (112) 97 06/22/19 04:00 52 06/22/19 04:00 2.0 06/22/19 00:00 67 06/22/19 00:00 98.1 63 18 157/81 (106) 96 06/21/19 21:00 Nasal Cannula 2.0 06/21/19 20:00 2.0 06/21/19 20:00 98.2 61 19 155/69 (97) 96 06/21/19 20:00 60 06/21/19 16:00 2.0 06/21/19 16:00 97.3 66 20 148/86 (106) 97 06/21/19 16:00 76 06/21/19 12:00 2.0 06/21/19 12:00 97.8 47 20 154/87 (109) 96 06/21/19 12:00 47 06/21/19 09:53 55 164/88 06/21/19 09:00 Nasal Cannula 2.0 06/21/19 08:00 49 06/21/19 08:00 97.3 49 18 164/88 (113) 98 06/21/19 08:00 2.0 06/21/19 07:00 98 Nasal Cannula 2.0 28 06/21/19 07:00 68 18 98 Nasal Cannula 2.0 28 06/21/19 04:00 2.0 06/21/19 04:00 97.1 68 18 122/81 (95) 98 06/21/19 03:49 51 06/21/19 00:00 97.2 66 18 132/84 (100) 98 06/20/19 23:32 58 06/20/19 21:00 Nasal Cannula 2.0 06/20/19 20:00 97.8 67 18 136/92 (107) 97 06/20/19 20:00 2.0 06/20/19 20:00 61 06/20/19 18:00 2.0 06/20/19 16:00 2.0 06/20/19 16:00 61 06/20/19 16:00 97.3 60 18 146/86 (106) 96 06/20/19 12:00 97.4 66 18 127/87 (100) 99 06/20/19 12:00 2.0 06/20/19 12:00 55 06/20/19 09:12 63 147/87 06/20/19 09:00 Nasal Cannula 2.0 06/20/19 08:00 55 06/20/19 08:00 97.8 63 19 147/87 (107) 98 06/20/19 08:00 2.0 Intake and Output 06/21/19 06/22/19 19:00 07:00 Intake Total 125 ml 200 ml Balance 125 ml 200 ml Intake Oral 75 ml IV Total 50 ml 200 ml # Voids 2 # Bowel Movements 1 Labs Test 06/20/19 04:00 06/21/19 04:00 06/22/19 05:00 White Blood Count 5.4 K/UL (4.8-10.8) 4.8 K/UL (4.8-10.8) 5.0 K/UL (4.8-10.8) Red Blood Count 4.95 M/UL (4.70-6.10) 4.62 M/UL (4.70-6.10) 4.88 M/UL (4.70-6.10) Hemoglobin 14.9 G/DL (14.2-18.0) 14.0 G/DL (14.2-18.0) 14.8 G/DL (14.2-18.0) Hematocrit 44.9 % (42.0-52.0) 41.4 % (42.0-52.0) 44.0 % (42.0-52.0) Mean Corpuscular Volume 91 FL (80-99) 90 FL (80-99) 90 FL (80-99) Mean Corpuscular Hemoglobin 30.1 PG (27.0-31.0) 30.4 PG (27.0-31.0) 30.3 PG (27.0-31.0) Mean Corpuscular Hemoglobin Concent 33.3 G/DL (32.0-36.0) 33.9 G/DL (32.0-36.0) 33.6 G/DL (32.0-36.0) Red Cell Distribution Width 12.5 % (11.6-14.8) 12.5 % (11.6-14.8) 12.3 % (11.6-14.8) Platelet Count 385 K/UL (150-450) 365 K/UL (150-450) 410 K/UL (150-450) Mean Platelet Volume 4.8 FL (6.5-10.1) 5.0 FL (6.5-10.1) 6.1 FL (6.5-10.1) Neutrophils (%) (Auto) 64.2 % (45.0-75.0) 64.1 % (45.0-75.0) 64.1 % (45.0-75.0) Lymphocytes (%) (Auto) 28.0 % (20.0-45.0) 23.2 % (20.0-45.0) 26.4 % (20.0-45.0) Monocytes (%) (Auto) 6.7 % (1.0-10.0) 11.2 % (1.0-10.0) 8.7 % (1.0-10.0) Eosinophils (%) (Auto) 0.6 % (0.0-3.0) 1.1 % (0.0-3.0) 0.2 % (0.0-3.0) Basophils (%) (Auto) 0.6 % (0.0-2.0) 0.4 % (0.0-2.0) 0.7 % (0.0-2.0) Sodium Level 149 MMOL/L (136-145) 147 MMOL/L (136-145) Potassium Level 3.7 MMOL/L (3.5-5.1) 3.0 MMOL/L (3.5-5.1) Chloride Level 112 MMOL/L (98-107) 111 MMOL/L (98-107) Carbon Dioxide Level 26 MMOL/L (21-32) 26 MMOL/L (21-32) Anion Gap 11 mmol/L (5-15) 10 mmol/L (5-15) Blood Urea Nitrogen 13 mg/dL (7-18) 14 mg/dL (7-18) Creatinine 0.7 MG/DL (0.55-1.30) 0.8 MG/DL (0.55-1.30) Estimat Glomerular Filtration Rate > 60 mL/min (>60) > 60 mL/min (>60) Glucose Level 136 MG/DL (74-106) 146 MG/DL (74-106) Calcium Level 8.0 MG/DL (8.5-10.1) 8.2 MG/DL (8.5-10.1) Total Bilirubin 0.7 MG/DL (0.2-1.0) Aspartate Amino Transf (AST/SGOT) 79 U/L (15-37) Alanine Aminotransferase (ALT/SGPT) 77 U/L (12-78) Alkaline Phosphatase 116 U/L (46-116) Total Protein 7.1 G/DL (6.4-8.2) Albumin 2.1 G/DL (3.4-5.0) Globulin 5.0 g/dL Albumin/Globulin Ratio 0.4 (1.0-2.7) Phosphorus Level 3.0 MG/DL (2.5-4.9) Magnesium Level 2.1 MG/DL (1.8-2.4) Troponin I 0.097 ng/mL (0.000-0.056) Height (Feet): 5 Height (Inches): 2.00 Weight (Pounds): 61 Objective Physical Exam General: Awake and somewhat confused, no acute distress HEENT: NC/AT. EOMI. Cardiovascular: RRR. S1 and S2 normal. No murmur appreciated Resp: Mild tachypnea, normal work of breathing. On 2 L nasal cannula. Abdomen: Abdomen is soft, nondistended. Nontender Skin: Intact. No abrasions, laceration MSK: Normal tone and bulk. Moving all extremities Neuro: Awake and somewhat confused. Poor historian Geraldo Galvez MD Jun 22, 2019 06:09
[2019-06-22 06:13] LABS: POTASSIUM 7.7 MMOL/L (3.5-5.1)
[2019-06-22 06:16] LABS: CREATINE KINASE 33 U/L (26-308); GAMMA GLUTAMYL TRANSPEPTIDASE 262 U/L (5-85); LACTATE DEHYDROGENASE 255 U/L (81-234); PHOSPHORUS 2.8 MG/DL (2.5-4.9)
--- NOTE | 2019-06-22 07:19 | NUR ---
HAND-OFF: Report given to MANOLO Carrera. Patient is awake, on stable condition. RN made aware of potassium and glucose result. Will continue plan of care.
--- NOTE | 2019-06-22 07:21 | NUR ---
NURSE NOTES: Received report from MANOLO Jerez in bed resting, no s/s of pain, cardiac, or respiratory distress noticed at this time. Patient AAOx2, on room air. IV on left FA 20G, asymptomatic, patent, intact running D5W w/ 40MEQKCL @ 50CC/hr. Bed in lowest position, side rails up x3, call light within reach, bed alarm on. Will continue with the plan of care.
[2019-06-22 08:00] VITALS: BP 161/89
[2019-06-22 09:16] LABS: ANION GAP 8 mmol/L (5-15); BLOOD UREA NITROGEN 13 mg/dL (7-18); CALCIUM 8.2 MG/DL (8.5-10.1); CARBON DIOXIDE 29 MMOL/L (21-32); CHLORIDE 107 MMOL/L (98-107); CREATININE 0.7 MG/DL (0.55-1.30); POTASSIUM 3.9 MMOL/L (3.5-5.1); SODIUM 144 MMOL/L (136-145)
[2019-06-22 09:22] LABS: ALANINE AMINOTRANSFERASE 103 U/L (12-78); ALBUMIN/GLOBULIN RATIO 0.4 (1.0-2.7); ALKALINE PHOSPHATASE 105 U/L (46-116); ASPARTATE AMINO TRANSFERASE 144 U/L (15-37); BILIRUBIN,TOTAL 0.5 MG/DL (0.2-1.0)
[2019-06-22] MEDS: Aspirin Baby 81mg ORAL SCH (09:49)
[2019-06-22] MEDS: Memantine 10mg tab ORAL SCH ×2 (09:49→17:31)
[2019-06-22] MEDS: Docusate 100mg cap ORAL SCH (09:49)
[2019-06-22] MEDS: Donepezil 5mg Tab ORAL SCH (09:49)
[2019-06-22] MEDS: Metoprolol Succinate XL 25mg tab ORAL SCH (09:50)
[2019-06-22] MEDS: Enoxaparin 40mg Inj SUBQ SCH (09:51)
--- NOTE | 2019-06-22 10:58 | General Progress Note ---
Assessment/Plan Status: progressing Assessment/Plan: 1. History of dementia. 2. CHF. 3. Hypertension. 4. BPH. 5. Constipation. 6. elevated LFTS 7. AMI 8. gallstones improving LFTS hep C positive>>> will send HCV RNA and patient needs out patient fu for treatment fu cardiology repeat labs in am needs PEG but will wait until COVID isolation is off recommend nurses to attempt to place an NGT and if they fail i will try Subjective ROS Limited/Unobtainable: No Allergies: Coded Allergies: No Known Allergies (Unverified , 06/15/19) Objective Last 24 Hour Vital Signs Date Time Temp Pulse Resp B/P (MAP) Pulse Ox O2 Delivery O2 Flow Rate FiO2 06/22/19 09:50 87 161/89 06/22/19 09:00 Nasal Cannula 2.0 06/22/19 08:00 49 06/22/19 08:00 2.0 06/22/19 08:00 97.8 49 20 161/89 (113) 97 06/22/19 04:00 98.4 56 18 148/95 (112) 97 06/22/19 04:00 52 06/22/19 04:00 2.0 06/22/19 00:00 67 06/22/19 00:00 98.1 63 18 157/81 (106) 96 06/21/19 21:00 Nasal Cannula 2.0 06/21/19 20:00 2.0 06/21/19 20:00 98.2 61 19 155/69 (97) 96 06/21/19 20:00 60 06/21/19 16:00 2.0 06/21/19 16:00 97.3 66 20 148/86 (106) 97 06/21/19 16:00 76 06/21/19 12:00 2.0 06/21/19 12:00 97.8 47 20 154/87 (109) 96 06/21/19 12:00 47 Intake and Output 06/21/19 06/22/19 19:00 07:00 Intake Total 125 ml 200 ml Balance 125 ml 200 ml Intake Oral 75 ml IV Total 50 ml 200 ml # Voids 2 3 # Bowel Movements 1 1 Laboratory Tests 06/22/19 05:00: White Blood Count 5.0, Red Blood Count 4.88, Hemoglobin 14.8, Hematocrit 44.0, Mean Corpuscular Volume 90, Mean Corpuscular Hemoglobin 30.3, Mean Corpuscular Hemoglobin Concent 33.6, Red Cell Distribution Width 12.3, Platelet Count 410, Mean Platelet Volume 6.1L, Neutrophils (%) (Auto) 64.1, Lymphocytes (%) (Auto) 26.4, Monocytes (%) (Auto) 8.7, Eosinophils (%) (Auto) 0.2, Basophils (%) (Auto ) 0.7, D-Dimer 4.38H, Sodium Level 128L, Potassium Level 7.7#*H, Chloride Level 98, Carbon Dioxide Level 30, Anion Gap -1L, Blood Urea Nitrogen 11, Creatinine 0.8, Estimat Glomerular Filtration Rate > 60, Glucose Level 517#*H, Hemoglobin A1c 7.2H, Uric Acid 2.8, Calcium Level 8.0L, Phosphorus Level 2.8, Magnesium Level 1.9, Ferritin 818H, Total Bilirubin 0.5, Gamma Glutamyl Transpeptidase 262H, Aspartate Amino Transf (AST/SGOT) 125H, Alanine Aminotransferase (ALT/SGPT ) 79H, Alkaline Phosphatase 100, Lactate Dehydrogenase 255H, Total Creatine Kinase 33, Troponin I 0.097H, C-Reactive Protein, Quantitative 4.1H, Pro-B-Type Natriuretic Peptide 1999H, Total Protein 7.1, Albumin 1.9L, Globulin 5.2, Albumin/Globulin Ratio 0.4L, Triglycerides Level 87, Cholesterol Level 84, LDL Cholesterol 48, HDL Cholesterol 26L, Cholesterol/HDL Ratio 3.2L, Vitamin B12 Level 632, Folate 13.0, Thyroid Stimulating Hormone (TSH) 0.292L 06/22/19 08:15: Sodium Level 144#, Potassium Level 3.9, Chloride Level 107, Carbon Dioxide Level 29, Anion Gap 8, Blood Urea Nitrogen 13, Creatinine 0.7, Estimat Glomerular Filtration Rate > 60, Glucose Level 136#H, Calcium Level 8.2L, Total Bilirubin 0.5, Aspartate Amino Transf (AST/SGOT) 144H, Alanine Aminotransferase (ALT/SGPT) 103H, Alkaline Phosphatase 105, Total Protein 7.6, Albumin 2.0L, Globulin 5.6, Albumin/Globulin Ratio 0.4L Height (Feet): 5 Height (Inches): 2.00 Weight (Pounds): 130 General Appearance: no apparent distress EENT: normal ENT inspection Neck: supple Cardiovascular: normal peripheral pulses Respiratory/Chest: decreased breath sounds Abdomen: normal bowel sounds, non tender, soft Extremities: non-tender Perry Quiroga MD Jun 22, 2019 10:58
[2019-06-22 12:00] VITALS: BP 160/80
--- NOTE | 2019-06-22 12:32 | NUR ---
NG TUBE PLACED. PATIENT TOLERATED WELL. AWAITING CHEST/ABDOMINAL XRAY FOR PLACEMENT CONFIRMATION. WILL CONTINUE TO MONITOR PATIENT.
--- NOTE | 2019-06-22 12:56 | NUR ---
RD ASSESSMENT & RECOMMENDATIONS SEE CARE ACTIVITY FOR COMPLETE ASSESSMENT DAILY ESTIMATED NEEDS: Needs based on Cardiac, pulmonary 61.2kg 25-30 kcals/kg 4504-4073 total kcals 1-1.5 g protein/kg 61-92 g total protein Fluid per MD, on lasix NUTRITION DIAGNOSIS: Swallowing and chewing difficulty r/t dysphagia as evidenced by pt on liquify puree texture diet w/ NTL, variable PO intake and 1:1 feeds, now NPO / pending NGT placement. CURRENT DIET:NPO ENTERAL NUTRITION RECOMMENDATIONS: Glucerna 1.5 @43ml/hr x24 hrs to provide 1032ml, 1548 kcal, 85g pro, 783ml free H2O - Obtain GI access, initiate Glucerna 1.5 @23ml/hr for 6 hrs. Advance as tolerated 10ml/hr q4-6 hrs to goal. - Flush per MD, HOB over 30 degrees. - At goal, TF meets 100% est needs ADDITIONAL RECOMMENDATIONS: 1) Obtain a calibrated bed scale wt and UPDATED EMR, Updated wt of 59.165kg is more c/w initial wt 2) Monitor lytes, need for renal TF 3) TF recs as above 4) Initiate TF at low rate, pt at risk for refeeding 5) rec NISS w/ TF's for glycemic control
--- NOTE | 2019-06-22 13:03 | NUR ---
ST NOTES: Swallow Status: The patient is alert but still confused and inconsistent in following commands. He is asking to eat but per staff, he usually refuses eating. Assisted RN, Debi, in placing the 12 [place] (small bore) NGT so he can have a modified barium swallow study when cleared of COVID 19 and only if he is more consistent in taking po from ST and staff. Pt may still have a PEG when cleared of COVID since intake goals not met (refuses or take very little) on a liquified pureed like nectar thick soup diet with only nectar thick liquids via tsp. Educated RN in posted oral care and aspiration precautions when NGT feedings are running. Plan: Keep NPO and continue with oral care and begin using aspiration precautions when nonoral NGT feedings are running. Await clearance of COVID 19 so patient can have a PEG and/or modified barium swallow study if indicated.
--- NOTE | 2019-06-22 13:15 | Consultation ---
Consult Note Consult Note I am asked to evaluate the patient at the request of Dr. Mark for fluid and electrolyte management Patient has been in the hospital for 6 days, yesterday patient had hypokalemia and hypernatremia in his blood work Data reviewed Discussed with resident in diagnostic radiology/Plan Electrolyte imbalance Dehydration and free water deficit Pneumonia suspected COVID-19 infection Elevated troponin Dementia Cholelithiasis and elevated liver enzymes BPH Hypertension Change IV to D5W for hypernatremia IV potassium Hydralazine as needed for blood pressure over 160 systolic Monitor electrolyte Continue per consultants Urine analysis ordered as none is available since admission Per orders Drew Gonzalez MD Jun 22, 2019 13:15
[2019-06-22] MEDS ORDERED: HydrALAZINE 25mg tab ORAL PRN (13:30)
--- NOTE | 2019-06-22 13:43 | Diagnostic Imaging Report ---
Indication: Post nasogastric tube placement Technique: Supine view of the upper abdomen Comparison: none Findings: There is a nasogastric tube in place, tip projecting at the level of the gastric fundus, proximal sidehole not clearly visible but probably beyond the gastroesophageal junction. Visualized bowel gas is unremarkable. The included lungs demonstrate bilateral infiltrates Impression: Satisfactory nasogastric intubation Other findings as noted
--- NOTE | 2019-06-22 13:58 | Infectious Diseases Prog Note ---
Assessment/Plan Assessment/Plan IMPRESSION: COIVD19 Pneumonia, Cholelithiasis and elevated transaminase level, acidosis, dementia with behavioral problem. RECOMMENDATION: We will continue with ceftriaxone and Zithromax until tomorrow We will repeat COVID19 tests. If the condition become worse, we will start hydroxychloroquine. Subjective ROS Limited/Unobtainable: Yes Neurologic: Reports: confusion, other - on restraint Allergies: Coded Allergies: No Known Allergies (Unverified , 06/15/19) Objective Vital Signs Last 24 Hour Vital Signs Date Time Temp Pulse Resp B/P (MAP) Pulse Ox O2 Delivery O2 Flow Rate FiO2 06/22/19 12:00 2.0 06/22/19 12:00 54 06/22/19 12:00 97.8 54 20 160/80 (106) 97 06/22/19 09:50 87 161/89 06/22/19 09:00 Nasal Cannula 2.0 06/22/19 08:00 49 06/22/19 08:00 2.0 06/22/19 08:00 97.8 49 20 161/89 (113) 97 06/22/19 04:00 98.4 56 18 148/95 (112) 97 06/22/19 04:00 52 06/22/19 04:00 2.0 06/22/19 00:00 67 06/22/19 00:00 98.1 63 18 157/81 (106) 96 06/21/19 21:00 Nasal Cannula 2.0 06/21/19 20:00 2.0 06/21/19 20:00 98.2 61 19 155/69 (97) 96 06/21/19 20:00 60 06/21/19 16:00 2.0 06/21/19 16:00 97.3 66 20 148/86 (106) 97 06/21/19 16:00 76 Height (Feet): 5 Height (Inches): 2.00 Weight (Pounds): 130 General Appearance: no acute distress HEENT: mucous membranes moist Respiratory/Chest: lungs clear Cardiovascular: normal rate Abdomen: soft, non tender, other - NG tube Extremities: no edema Neurologic/Psychiatric: disoriented Laboratory Tests Test 06/22/19 05:00 06/22/19 08:15 White Blood Count 5.0 K/UL (4.8-10.8) Red Blood Count 4.88 M/UL (4.70-6.10) Hemoglobin 14.8 G/DL (14.2-18.0) Hematocrit 44.0 % (42.0-52.0) Mean Corpuscular Volume 90 FL (80-99) Mean Corpuscular Hemoglobin 30.3 PG (27.0-31.0) Mean Corpuscular Hemoglobin Concent 33.6 G/DL (32.0-36.0) Red Cell Distribution Width 12.3 % (11.6-14.8) Platelet Count 410 K/UL (150-450) Mean Platelet Volume 6.1 FL (6.5-10.1) L Neutrophils (%) (Auto) 64.1 % (45.0-75.0) Lymphocytes (%) (Auto) 26.4 % (20.0-45.0) Monocytes (%) (Auto) 8.7 % (1.0-10.0) Eosinophils (%) (Auto) 0.2 % (0.0-3.0) Basophils (%) (Auto) 0.7 % (0.0-2.0) D-Dimer 4.38 mg/L FEU (0.00-0.49) H Sodium Level 128 MMOL/L (136-145) L 144 MMOL/L (136-145) # Potassium Level 7.7 MMOL/L (3.5-5.1) #*H 3.9 MMOL/L (3.5-5.1) Chloride Level 98 MMOL/L (98-107) 107 MMOL/L (98-107) Carbon Dioxide Level 30 MMOL/L (21-32) 29 MMOL/L (21-32) Anion Gap -1 mmol/L (5-15) L 8 mmol/L (5-15) Blood Urea Nitrogen 11 mg/dL (7-18) 13 mg/dL (7-18) Creatinine 0.8 MG/DL (0.55-1.30) 0.7 MG/DL (0.55-1.30) Estimat Glomerular Filtration Rate > 60 mL/min (>60) > 60 mL/min (>60) Glucose Level 517 MG/DL (74-106) #*H 136 MG/DL (74-106) #H Hemoglobin A1c 7.2 % (4.3-6.0) H Uric Acid 2.8 MG/DL (2.6-7.2) Calcium Level 8.0 MG/DL (8.5-10.1) L 8.2 MG/DL (8.5-10.1) L Phosphorus Level 2.8 MG/DL (2.5-4.9) Magnesium Level 1.9 MG/DL (1.8-2.4) Ferritin 818 NG/ML (8-388) H Total Bilirubin 0.5 MG/DL (0.2-1.0) 0.5 MG/DL (0.2-1.0) Gamma Glutamyl Transpeptidase 262 U/L (5-85) H Aspartate Amino Transf (AST/SGOT) 125 U/L (15-37) H 144 U/L (15-37) H Alanine Aminotransferase (ALT/SGPT) 79 U/L (12-78) H 103 U/L (12-78) H Alkaline Phosphatase 100 U/L (46-116) 105 U/L (46-116) Lactate Dehydrogenase 255 U/L (81-234) H Total Creatine Kinase 33 U/L (26-308) Troponin I 0.097 ng/mL (0.000-0.056) C-Reactive Protein, Quantitative 4.1 mg/dL (0.00-0.90) H Pro-B-Type Natriuretic Peptide 1999 pg/mL (0-125) H Total Protein 7.1 G/DL (6.4-8.2) 7.6 G/DL (6.4-8.2) Albumin 1.9 G/DL (3.4-5.0) L 2.0 G/DL (3.4-5.0) L Globulin 5.2 g/dL 5.6 g/dL Albumin/Globulin Ratio 0.4 (1.0-2.7) L 0.4 (1.0-2.7) L Triglycerides Level 87 MG/DL (30-150) Cholesterol Level 84 MG/DL (< 200) LDL Cholesterol 48 mg/dL (<100) HDL Cholesterol 26 MG/DL (40-60) L Cholesterol/HDL Ratio 3.2 (3.3-4.4) L Vitamin B12 Level 632 PG/ML (193-986) Folate 13.0 NG/ML (8.6-58.9) Thyroid Stimulating Hormone (TSH) 0.292 uiU/mL (0.358-3.740) Current Medications Medications (Trade) Dose Ordered Sig/Kaylan Route PRN Reason Start Time Stop Time Status Last Admin Dose Admin Acetaminophen (Tylenol) 500 mg Q6H PRN ORAL For Pain 06/16/19 00:15 07/16/19 00:14 Acetaminophen (Tylenol) 650 mg Q6H PRN ORAL For Headache 06/16/19 03:00 07/16/19 02:59 Albuterol Sulfate (Proventil MDI) 2 puff Q6H PRN INH Shortness of Breath 06/16/19 03:00 09/14/19 02:59 Aspirin (ASA) 81 mg DAILY ORAL 06/16/19 09:00 07/31/19 08:59 06/22/19 09:49 Azithromycin 500 mg/Dextrose 275 ml @ 275 mls/hr Q24HRS IV 06/16/19 18:00 06/24/19 17:59 06/21/19 18:18 Ceftriaxone Sodium 1 gm/ Dextrose 55 ml @ 110 mls/hr Q24H IVPB 06/16/19 19:00 06/24/19 18:59 06/21/19 20:18 Docusate Sodium (Colace) 100 mg DAILY ORAL 06/16/19 09:00 07/16/19 08:59 06/22/19 09:49 Donepezil HCl (Aricept) 5 mg DAILY ORAL 06/16/19 09:00 07/16/19 08:59 06/22/19 09:49 Enoxaparin Sodium (Lovenox) 40 mg DAILY SUBQ 06/16/19 09:00 09/14/19 08:59 06/22/19 09:51 Hydralazine HCl (Apresoline) 25 mg Q4H PRN ORAL For blood pressure over 160 sy 06/22/19 13:30 09/20/19 13:29 Memantine (Namenda) 10 mg TWICE A DAY ORAL 06/16/19 09:00 07/16/19 08:59 06/22/19 09:49 Metoprolol Succinate (Toprol XL) 25 mg DAILY ORAL 06/19/19 19:15 09/17/19 19:14 06/22/19 09:50 Mirtazapine (Remeron) 15 mg BEDTIME ORAL 06/21/19 21:00 09/19/19 20:59 06/21/19 20:18 Ondansetron HCl (Zofran) 4 mg Q6H PRN IVP Nausea & Vomiting 06/16/19 03:00 07/16/19 02:59 Polyethylene Glycol (Miralax) 17 gm BEDTIME ORAL 06/17/19 21:00 07/17/19 20:59 06/21/19 20:18 Potassium Chloride 40 meq/ Dextrose 1,020 ml @ 50 mls/hr [id number] IV 06/21/19 21:30 07/21/19 21:29 06/21/19 22:01 Potassium Chloride (K-Dur) 20 meq DAILY ORAL 06/19/19 09:00 09/17/19 08:59 06/22/19 09:49 Benigno Betancourt MD Jun 22, 2019 13:58
--- NOTE | 2019-06-22 15:42 | NUR ---
CASE MANAGEMENT:REVIEW 06/22/19 SI: COVID 19 PNEUMONIA 97.8 54 20 160/80 97% ON 2L/NC NA-128 K+7.7 GLUCOSE+517 TROPONIN(+) 0.097 IS: IV LASIX QD IV ROCEPHIN Q24 IV AZITHROMYCIN Q24 IVF + KCL@50/HR LOVENOX SQ QD ASA PO QD ARICEPT PO QD TOPROL PO QD : TELEMETRY STATUS DCP: FROM [facility]
[2019-06-22 16:00] VITALS: BP 156/82
[2019-06-22] MEDS: Azithromycin 500 MG in D5W 275 ML IV SCH (17:31)
[2019-06-22 18:24] LABS: APPEARANCE,URINE CLEAR; BILIRUBIN, URINE NEGATIVE (NEGATIVE); COLOR,URINE BROWN; GLUCOSE, URINE (UA) NEGATIVE (NEGATIVE); KETONES,URINE NEGATIVE (NEGATIVE); LEUKOCYTE ESTERASE ,URINE NEGATIVE (NEGATIVE); NITRITE,URINE NEGATIVE (NEGATIVE); PH,URINE 8 (4.5-8.0); PROTEIN,URINE 1+ (NEGATIVE); UROBILINOGEN,URINE 8 MG/DL (0.0-1.0)
[2019-06-22] MEDS: cefTRIAXone 1 GM in D5W 55 ML IVPB SCH (18:36)
--- NOTE | 2019-06-22 19:35 | NUR ---
HAND-OFF: Report given to MANOLO Liriano. Patient is in stable condition.
[2019-06-22 20:00] VITALS: BP 153/95
--- NOTE | 2019-06-22 20:17 | General Progress Note ---
Assessment/Plan Problem List: (1) Elevated troponin ICD Codes: R79.89 - Other specified abnormal findings of blood chemistry SNOMED: 129091029, 778190822, 230355934 (2) Elevated LFTs ICD Codes: R79.89 - Other specified abnormal findings of blood chemistry SNOMED: 899994406, 071233788, 123174238 (3) Pneumonia ICD Codes: J18.9 - Pneumonia, unspecified organism SNOMED: 756537725, 519079110, 318672632 (4) Suspected 2019 novel coronavirus infection ICD Codes: R68.89 - Other general symptoms and signs SNOMED: 625211448 Status: progressing Status Narrative positive covid lyte abnormailty improved persistent lft elevation afebrile resp insuff Assessment/Plan: covid positive pna peristent low k r mildly elevated lft.improved no cp afebrile reviewed chart and labs Subjective ROS Limited/Unobtainable: Yes Allergies: Coded Allergies: No Known Allergies (Unverified , 06/15/19) Objective Last 24 Hour Vital Signs Date Time Temp Pulse Resp B/P (MAP) Pulse Ox O2 Delivery O2 Flow Rate FiO2 06/22/19 16:00 97.9 90 20 156/82 (106) 98 06/22/19 16:00 65 06/22/19 16:00 2.0 06/22/19 12:00 2.0 06/22/19 12:00 54 06/22/19 12:00 97.8 54 20 160/80 (106) 97 06/22/19 09:50 87 161/89 06/22/19 09:00 Nasal Cannula 2.0 06/22/19 08:00 49 06/22/19 08:00 2.0 06/22/19 08:00 97.8 49 20 161/89 (113) 97 06/22/19 04:00 98.4 56 18 148/95 (112) 97 06/22/19 04:00 52 06/22/19 04:00 2.0 06/22/19 00:00 67 06/22/19 00:00 98.1 63 18 157/81 (106) 96 06/21/19 21:00 Nasal Cannula 2.0 Intake and Output 06/21/19 06/22/19 19:00 07:00 Intake Total 125 ml 200 ml Balance 125 ml 200 ml Intake Oral 75 ml IV Total 50 ml 200 ml # Voids 2 3 # Bowel Movements 1 1 Laboratory Tests 06/22/19 05:00: White Blood Count 5.0, Red Blood Count 4.88, Hemoglobin 14.8, Hematocrit 44.0, Mean Corpuscular Volume 90, Mean Corpuscular Hemoglobin 30.3, Mean Corpuscular Hemoglobin Concent 33.6, Red Cell Distribution Width 12.3, Platelet Count 410, Mean Platelet Volume 6.1L, Neutrophils (%) (Auto) 64.1, Lymphocytes (%) (Auto) 26.4, Monocytes (%) (Auto) 8.7, Eosinophils (%) (Auto) 0.2, Basophils (%) (Auto ) 0.7, D-Dimer 4.38H, Sodium Level 128L, Potassium Level 7.7#*H, Chloride Level 98, Carbon Dioxide Level 30, Anion Gap -1L, Blood Urea Nitrogen 11, Creatinine 0.8, Estimat Glomerular Filtration Rate > 60, Glucose Level 517#*H, Hemoglobin A1c 7.2H, Uric Acid 2.8, Calcium Level 8.0L, Phosphorus Level 2.8, Magnesium Level 1.9, Ferritin 818H, Total Bilirubin 0.5, Gamma Glutamyl Transpeptidase 262H, Aspartate Amino Transf (AST/SGOT) 125H, Alanine Aminotransferase (ALT/SGPT ) 79H, Alkaline Phosphatase 100, Lactate Dehydrogenase 255H, Total Creatine Kinase 33, Troponin I 0.097H, C-Reactive Protein, Quantitative 4.1H, Pro-B-Type Natriuretic Peptide 1999H, Total Protein 7.1, Albumin 1.9L, Globulin 5.2, Albumin/Globulin Ratio 0.4L, Triglycerides Level 87, Cholesterol Level 84, LDL Cholesterol 48, HDL Cholesterol 26L, Cholesterol/HDL Ratio 3.2L, Vitamin B12 Level 632, Folate 13.0, Thyroid Stimulating Hormone (TSH) 0.292L 06/22/19 08:15: Sodium Level 144#, Potassium Level 3.9, Chloride Level 107, Carbon Dioxide Level 29, Anion Gap 8, Blood Urea Nitrogen 13, Creatinine 0.7, Estimat Glomerular Filtration Rate > 60, Glucose Level 136#H, Calcium Level 8.2L, Total Bilirubin 0.5, Aspartate Amino Transf (AST/SGOT) 144H, Alanine Aminotransferase (ALT/SGPT) 103H, Alkaline Phosphatase 105, Total Protein 7.6, Albumin 2.0L, Globulin 5.6, Albumin/Globulin Ratio 0.4L 06/22/19 17:45: Urine Color Brown, Urine Appearance Clear, Urine pH 8, Urine Specific [place] 1.015, Urine Protein 1+H, Urine Glucose (UA) Negative, Urine Ketones Negative, Urine Blood Negative, Urine Nitrite Negative, Urine Bilirubin Negative, Urine Urobilinogen 8H, Urine Leukocyte Esterase Negative, Urine RBC 0-2H, Urine WBC 0- 2, Urine Squamous Epithelial Cells None, Urine Amorphous Sediment FewH, Urine Bacteria Few Height (Feet): 5 Height (Inches): 2.00 Weight (Pounds): 130 Gorge Malhotra MD Jun 22, 2019 20:17
[2019-06-22] MEDS: Miralax 17gm pkt ORAL SCH (22:43)
--- NOTE | 2019-06-22 23:39 | Cardiology Progress Note ---
Assessment/Plan Assessment/Plan 1. Dyspnea due to possibly combination of COVID-19 pneumonia in addition to with acute congestive heart failure in face of elevated proBNP, continue lasix and metoprolol. Awaiting 2D echocardiography to verify heart failure. 2. Possible [id number] myocardial infarction or elevated troponin I level could be secondary to myonecrosis that is seen in congestive heart failure. 3. HCV infection. Subjective Subjective Sinus rhythm at rate of 90. Objective Last 24 Hour Vital Signs Date Time Temp Pulse Resp B/P (MAP) Pulse Ox O2 Delivery O2 Flow Rate FiO2 06/22/19 16:00 97.9 90 20 156/82 (106) 98 06/22/19 16:00 65 06/22/19 16:00 2.0 06/22/19 12:00 2.0 06/22/19 12:00 54 06/22/19 12:00 97.8 54 20 160/80 (106) 97 06/22/19 09:50 87 161/89 06/22/19 09:00 Nasal Cannula 2.0 06/22/19 08:00 49 06/22/19 08:00 2.0 06/22/19 08:00 97.8 49 20 161/89 (113) 97 06/22/19 04:00 98.4 56 18 148/95 (112) 97 06/22/19 04:00 52 06/22/19 04:00 2.0 06/22/19 00:00 67 06/22/19 00:00 98.1 63 18 157/81 (106) 96 Intake and Output 06/21/19 06/22/19 19:00 07:00 Intake Total 125 ml 200 ml Balance 125 ml 200 ml Intake Oral 75 ml IV Total 50 ml 200 ml # Voids 2 3 # Bowel Movements 1 1 Laboratory Tests Test 06/22/19 05:00 06/22/19 08:15 06/22/19 17:45 White Blood Count 5.0 K/UL (4.8-10.8) Red Blood Count 4.88 M/UL (4.70-6.10) Hemoglobin 14.8 G/DL (14.2-18.0) Hematocrit 44.0 % (42.0-52.0) Mean Corpuscular Volume 90 FL (80-99) Mean Corpuscular Hemoglobin 30.3 PG (27.0-31.0) Mean Corpuscular Hemoglobin Concent 33.6 G/DL (32.0-36.0) Red Cell Distribution Width 12.3 % (11.6-14.8) Platelet Count 410 K/UL (150-450) Mean Platelet Volume 6.1 FL (6.5-10.1) L Neutrophils (%) (Auto) 64.1 % (45.0-75.0) Lymphocytes (%) (Auto) 26.4 % (20.0-45.0) Monocytes (%) (Auto) 8.7 % (1.0-10.0) Eosinophils (%) (Auto) 0.2 % (0.0-3.0) Basophils (%) (Auto) 0.7 % (0.0-2.0) D-Dimer 4.38 mg/L FEU (0.00-0.49) H Sodium Level 128 MMOL/L (136-145) L 144 MMOL/L (136-145) # Potassium Level 7.7 MMOL/L (3.5-5.1) #*H 3.9 MMOL/L (3.5-5.1) Chloride Level 98 MMOL/L (98-107) 107 MMOL/L (98-107) Carbon Dioxide Level 30 MMOL/L (21-32) 29 MMOL/L (21-32) Anion Gap -1 mmol/L (5-15) L 8 mmol/L (5-15) Blood Urea Nitrogen 11 mg/dL (7-18) 13 mg/dL (7-18) Creatinine 0.8 MG/DL (0.55-1.30) 0.7 MG/DL (0.55-1.30) Estimat Glomerular Filtration Rate > 60 mL/min (>60) > 60 mL/min (>60) Glucose Level 517 MG/DL (74-106) #*H 136 MG/DL (74-106) #H Hemoglobin A1c 7.2 % (4.3-6.0) H Uric Acid 2.8 MG/DL (2.6-7.2) Calcium Level 8.0 MG/DL (8.5-10.1) L 8.2 MG/DL (8.5-10.1) L Phosphorus Level 2.8 MG/DL (2.5-4.9) Magnesium Level 1.9 MG/DL (1.8-2.4) Ferritin 818 NG/ML (8-388) H Total Bilirubin 0.5 MG/DL (0.2-1.0) 0.5 MG/DL (0.2-1.0) Gamma Glutamyl Transpeptidase 262 U/L (5-85) H Aspartate Amino Transf (AST/SGOT) 125 U/L (15-37) H 144 U/L (15-37) H Alanine Aminotransferase (ALT/SGPT) 79 U/L (12-78) H 103 U/L (12-78) H Alkaline Phosphatase 100 U/L (46-116) 105 U/L (46-116) Lactate Dehydrogenase 255 U/L (81-234) H Total Creatine Kinase 33 U/L (26-308) Troponin I 0.097 ng/mL (0.000-0.056) C-Reactive Protein, Quantitative 4.1 mg/dL (0.00-0.90) H Pro-B-Type Natriuretic Peptide 1999 pg/mL (0-125) H Total Protein 7.1 G/DL (6.4-8.2) 7.6 G/DL (6.4-8.2) Albumin 1.9 G/DL (3.4-5.0) L 2.0 G/DL (3.4-5.0) L Globulin 5.2 g/dL 5.6 g/dL Albumin/Globulin Ratio 0.4 (1.0-2.7) L 0.4 (1.0-2.7) L Triglycerides Level 87 MG/DL (30-150) Cholesterol Level 84 MG/DL (< 200) LDL Cholesterol 48 mg/dL (<100) HDL Cholesterol 26 MG/DL (40-60) L Cholesterol/HDL Ratio 3.2 (3.3-4.4) L Vitamin B12 Level 632 PG/ML (193-986) Folate 13.0 NG/ML (8.6-58.9) Thyroid Stimulating Hormone (TSH) 0.292 uiU/mL (0.358-3.740) Urine Color Brown Urine Appearance Clear Urine pH 8 (4.5-8.0) Urine Specific [place] 1.015 (1.005-1.035) Urine Protein 1+ (NEGATIVE) H Urine Glucose (UA) Negative (NEGATIVE) Urine Ketones Negative (NEGATIVE) Urine Blood Negative (NEGATIVE) Urine Nitrite Negative (NEGATIVE) Urine Bilirubin Negative (NEGATIVE) Urine Urobilinogen 8 MG/DL (0.0-1.0) H Urine Leukocyte Esterase Negative (NEGATIVE) Urine RBC 0-2 /HPF (0 - 0) H Urine WBC 0-2 /HPF (0 - 0) Urine Squamous Epithelial Cells None /LPF (NONE/OCC) Urine Amorphous Sediment Few /LPF (NONE) H Urine Bacteria Few /HPF (NONE) Objective HEENT: Atraumatic and normocephalic. Anicteric. Pupils are equal, round, and reactive to light and accommodation. Extraocular muscles intact. NECK: JVP is less than 5 cm. No carotid bruit. Carotid upstroke is 2+ bilaterally. CARDIOVASCULAR: Normal S1 and S2. Regular rate and rhythm. No murmurs, gallops, or rubs. PMI is at fourth intercostal space at midclavicular line. LUNGS: Diminished breath sounds in both bases with associated crackles. ABDOMEN: Soft, nontender, and nondistended. No hepatosplenomegaly. Positive bowel sounds. EXTREMITIES: No evidence of edema, clubbing, or cyanosis. Rolf Moreno MD Jun 22, 2019 23:39
--- NOTE | 2019-06-22 23:40 | Pulmonology Progress Note ---
Assessment/Plan Assessment/Plan Pulmonary Progress Note HPI: Patient is a 88-year-old male history of Dementia, Congestive Heart Failure , admitted from [facility] with Pneumonia, COVID 19 positive, noted to have fever and shortness of breath, chest congestion and tightness for 2 days. Noted to be confused in the ED. Has been febrile with low-grade temperatures for the past 2 days. Denies vomiting or diarrhea or abdominal pain. Stable O2 requirements - 2L NC, stable Pulmonary Status PMH: Dementia, Congestive Heart Failure Social Hx: Skilled Nursing Resident FHx: NC Allergies: No Known Allergies All Other Systems: limited - AMS Physical Exam Vital signs noted General: Awake and somewhat confused, no acute distress HEENT: NC/AT. EOMI. Cardiovascular: RRR. S1 and S2 normal. No murmur appreciated Resp: Mild tachypnea, normal work of breathing. On 2 L nasal cannula. No cough Abdomen: Abdomen is soft, nondistended. Nontender Skin: Intact. No abrasions, laceration or rash noted MSK: Normal tone and bulk. Moving all extremities. No obvious deformity. Neuro: Awake and somewhat confused. Poor historian. No focal signs Impression: Pneumonia Suspected 2019 novel coronavirus infection Elevated troponin Elevated LFTs Lymphopenia Dementia Congestive Heart Failure Skilled Nursing Resident Plan Antibiotics/antivirals per ID O2 PRN Albuterol MDI PRN PPX - Lovenox ASA Monitor labs - hypokalemia - s/p supplementation Monitor cultures/viral studies Ultrasound of the abdomen pending. Isolation for suspected COVID-19 infection Laboratory Tests noted EKG Rate: normal Rhythm: NSR ST Segments: no acute changes Sinus rhythm, left axis deviation. Occasional PACs. T wave inversions, no ST segment changes Chest X-Ray: Consolidations in the left lower lobe may represent an early pneumonia. No effusion. Current CXR stable infiltrates . Subjective ROS Limited/Unobtainable: No Constitutional: Reports: other - poor appetite Respiratory: Reports: shortness of breath Allergies: Coded Allergies: No Known Allergies (Unverified , 06/15/19) Objective Last 24 Hour Vital Signs Date Time Temp Pulse Resp B/P (MAP) Pulse Ox O2 Delivery O2 Flow Rate FiO2 06/22/19 16:00 97.9 90 20 156/82 (106) 98 06/22/19 16:00 65 06/22/19 16:00 2.0 06/22/19 12:00 2.0 06/22/19 12:00 54 06/22/19 12:00 97.8 54 20 160/80 (106) 97 06/22/19 09:50 87 161/89 06/22/19 09:00 Nasal Cannula 2.0 06/22/19 08:00 49 06/22/19 08:00 2.0 06/22/19 08:00 97.8 49 20 161/89 (113) 97 06/22/19 04:00 98.4 56 18 148/95 (112) 97 06/22/19 04:00 52 06/22/19 04:00 2.0 06/22/19 00:00 67 06/22/19 00:00 98.1 63 18 157/81 (106) 96 Intake and Output 06/21/19 06/22/19 19:00 07:00 Intake Total 125 ml 200 ml Balance 125 ml 200 ml Intake Oral 75 ml IV Total 50 ml 200 ml # Voids 2 3 # Bowel Movements 1 1 General Appearance: no acute distress HEENT: mucous membranes moist Abdomen: soft, non tender, other - NG tube Extremities: no edema Neurologic/Psychiatric: disoriented Laboratory Tests 06/22/19 05:00: White Blood Count 5.0, Red Blood Count 4.88, Hemoglobin 14.8, Hematocrit 44.0, Mean Corpuscular Volume 90, Mean Corpuscular Hemoglobin 30.3, Mean Corpuscular Hemoglobin Concent 33.6, Red Cell Distribution Width 12.3, Platelet Count 410, Mean Platelet Volume 6.1L, Neutrophils (%) (Auto) 64.1, Lymphocytes (%) (Auto) 26.4, Monocytes (%) (Auto) 8.7, Eosinophils (%) (Auto) 0.2, Basophils (%) (Auto ) 0.7, D-Dimer 4.38H, Sodium Level 128L, Potassium Level 7.7#*H, Chloride Level 98, Carbon Dioxide Level 30, Anion Gap -1L, Blood Urea Nitrogen 11, Creatinine 0.8, Estimat Glomerular Filtration Rate > 60, Glucose Level 517#*H, Hemoglobin A1c 7.2H, Uric Acid 2.8, Calcium Level 8.0L, Phosphorus Level 2.8, Magnesium Level 1.9, Ferritin 818H, Total Bilirubin 0.5, Gamma Glutamyl Transpeptidase 262H, Aspartate Amino Transf (AST/SGOT) 125H, Alanine Aminotransferase (ALT/SGPT ) 79H, Alkaline Phosphatase 100, Lactate Dehydrogenase 255H, Total Creatine Kinase 33, Troponin I 0.097H, C-Reactive Protein, Quantitative 4.1H, Pro-B-Type Natriuretic Peptide 1999H, Total Protein 7.1, Albumin 1.9L, Globulin 5.2, Albumin/Globulin Ratio 0.4L, Triglycerides Level 87, Cholesterol Level 84, LDL Cholesterol 48, HDL Cholesterol 26L, Cholesterol/HDL Ratio 3.2L, Vitamin B12 Level 632, Folate 13.0, Thyroid Stimulating Hormone (TSH) 0.292L 06/22/19 08:15: Sodium Level 144#, Potassium Level 3.9, Chloride Level 107, Carbon Dioxide Level 29, Anion Gap 8, Blood Urea Nitrogen 13, Creatinine 0.7, Estimat Glomerular Filtration Rate > 60, Glucose Level 136#H, Calcium Level 8.2L, Total Bilirubin 0.5, Aspartate Amino Transf (AST/SGOT) 144H, Alanine Aminotransferase (ALT/SGPT) 103H, Alkaline Phosphatase 105, Total Protein 7.6, Albumin 2.0L, Globulin 5.6, Albumin/Globulin Ratio 0.4L 06/22/19 17:45: Urine Color Brown, Urine Appearance Clear, Urine pH 8, Urine Specific [place] 1.015, Urine Protein 1+H, Urine Glucose (UA) Negative, Urine Ketones Negative, Urine Blood Negative, Urine Nitrite Negative, Urine Bilirubin Negative, Urine Urobilinogen 8H, Urine Leukocyte Esterase Negative, Urine RBC 0-2H, Urine WBC 0- 2, Urine Squamous Epithelial Cells None, Urine Amorphous Sediment FewH, Urine Bacteria Few Current Medications Medications (Trade) Dose Ordered Sig/Kaylan Route PRN Reason Start Time Stop Time Status Last Admin Dose Admin Acetaminophen (Tylenol) 500 mg Q6H PRN ORAL For Pain 06/16/19 00:15 07/16/19 00:14 Acetaminophen (Tylenol) 650 mg Q6H PRN ORAL For Headache 06/16/19 03:00 07/16/19 02:59 Albuterol Sulfate (Proventil MDI) 2 puff Q6H PRN INH Shortness of Breath 06/16/19 03:00 09/14/19 02:59 Aspirin (ASA) 81 mg DAILY ORAL 06/16/19 09:00 07/31/19 08:59 06/22/19 09:49 Azithromycin 500 mg/Dextrose 275 ml @ 275 mls/hr Q24HRS IV 06/16/19 18:00 06/24/19 17:59 06/22/19 17:31 Ceftriaxone Sodium 1 gm/ Dextrose 55 ml @ 110 mls/hr Q24H IVPB 06/16/19 19:00 06/24/19 18:59 06/22/19 18:36 Docusate Sodium (Colace) 100 mg DAILY ORAL 06/16/19 09:00 07/16/19 08:59 06/22/19 09:49 Donepezil HCl (Aricept) 5 mg DAILY ORAL 06/16/19 09:00 07/16/19 08:59 06/22/19 09:49 Enoxaparin Sodium (Lovenox) 40 mg DAILY SUBQ 06/16/19 09:00 09/14/19 08:59 06/22/19 09:51 Hydralazine HCl (Apresoline) 25 mg Q4H PRN ORAL For blood pressure over 160 sy 06/22/19 13:30 09/20/19 13:29 Memantine (Namenda) 10 mg TWICE A DAY ORAL 06/16/19 09:00 07/16/19 08:59 06/22/19 17:31 Metoprolol Succinate (Toprol XL) 25 mg DAILY ORAL 06/19/19 19:15 09/17/19 19:14 06/22/19 09:50 Mirtazapine (Remeron) 15 mg BEDTIME ORAL 06/21/19 21:00 09/19/19 20:59 06/22/19 22:43 Ondansetron HCl (Zofran) 4 mg Q6H PRN IVP Nausea & Vomiting 06/16/19 03:00 07/16/19 02:59 Polyethylene Glycol (Miralax) 17 gm BEDTIME ORAL 06/17/19 21:00 07/17/19 20:59 06/22/19 22:43 Potassium Chloride 40 meq/ Dextrose 1,020 ml @ 50 mls/hr [id number] IV 06/21/19 21:30 07/21/19 21:29 06/22/19 17:35 Potassium Chloride (K-Dur) 20 meq DAILY ORAL 06/19/19 09:00 09/17/19 08:59 06/22/19 09:49 Andrew Diaz MD Jun 22, 2019 23:40
[2019-06-23 04:00] VITALS: BP 160/88
[2019-06-23 07:22] LABS: BASOPHILS % (AUTO) 0.4 % (0.0-2.0); EOSINOPHILS % (AUTO) 0.7 % (0.0-3.0); HEMATOCRIT 42.5 % (42.0-52.0); HEMOGLOBIN 14.5 G/DL (14.2-18.0); LYMPHOCYTES % (AUTO) 19.4 % (20.0-45.0); MEAN CORPUSCULAR VOLUME 90 FL (80-99); MONOCYTES % (AUTO) 8.4 % (1.0-10.0); PLATELET COUNT 435 K/UL (150-450); RED BLOOD COUNT 4.74 M/UL (4.70-6.10); RED CELL DISTRIBUTION WIDTH 12.7 % (11.6-14.8); WHITE BLOOD COUNT 5.5 K/UL (4.8-10.8)
[2019-06-23 07:37] LABS: ANION GAP 7 mmol/L (5-15); BLOOD UREA NITROGEN 15 mg/dL (7-18); CALCIUM 9.2 MG/DL (8.5-10.1); CARBON DIOXIDE 29 MMOL/L (21-32); CHLORIDE 105 MMOL/L (98-107); CREATININE 0.8 MG/DL (0.55-1.30); POTASSIUM 4.2 MMOL/L (3.5-5.1); SODIUM 141 MMOL/L (136-145)
[2019-06-23 08:00] VITALS: BP 155/89
--- NOTE | 2019-06-23 08:00 | NUR ---
NURSE NURSE: Received patient from Kwame [place]. Patient is awake and alert. [place]ian speaking. Dnies pain or discomfort at this time. Right nare NGT in place. feeding on hold per night RN. Patient has no feeding order. Patient no IV access will insert new IV. B/L wrist restraints in place. Fall/Aspiration precautions in place. Call diaz within patients reach. Will continue plan of care.
[2019-06-23] MEDS: Docusate 100mg cap ORAL SCH (10:00)
[2019-06-23] MEDS: Donepezil 5mg Tab ORAL SCH (10:01)
[2019-06-23] MEDS: Metoprolol Succinate XL 25mg tab ORAL SCH (10:01)
[2019-06-23] MEDS: Memantine 10mg tab ORAL SCH ×2 (10:01→16:58)
[2019-06-23] MEDS: Enoxaparin 40mg Inj SUBQ SCH (10:02)
[2019-06-23] MEDS: Aspirin Baby 81mg ORAL SCH (10:02)
--- NOTE | 2019-06-23 10:16 | NUR ---
ST NOTES: WEEKLY SWALLOW/SPEECH THERAPY SUMMARY: PATIENT IS SEEN MOSTLY FOR DYSPHAGIA, SEE SWALLOWING EVALUATION REPORT OF 06/16/19. PER RN, THE PATIENT IS COVID-19 POSITIVE AND IS NOT ABLE TO GO DOWN FOR A MODIFIED BARIUM SWALLOW STUDY NOR GET A PEG WHICH IS THE PLAN UNTIL HE IS TREATED AND COVID-19 NEGATIVE. GOALS FOR INTAKE NOT MET CONSISTENTLY (GOAL >75%) HE WOULD REFUSE PO MANY TIMES WITH DIFFERENT FEEDING STAFF EVEN THOUGH HE STILL ASKS FOR FOOD. THE LAST PO INTAKE RECORDED WAS ON 06/19/19 WHEN HE TOOK 25/75/25% ON THE LIQUIFIED PUREED LIKE NECTAR THICK LIQUIDS AND THIN LIQUIDS OK TSP AT A TIME WITH POSTED ASPIRATION AND REFLUX PRECAUTIONS. GOALS MET FOR NEW STAFF (AZUL YESTERDAY AND MICHAEL RNS TODAY) EDUCATED/TRAINED IN POSTED ASPIRATION/REFLUX PRECAUTIONS FOR ORAL GRATIFICATION (HALF PORTION TRAYS SENT). STAFF AWARE OF ORAL CARE NEEDS. SPEECH/LANGUAGE/COGNITIVE STATUS: DR PINEDA DID NOT SIGN ORDER FOR FORMAL COGNITIVE-LANGUAGE EVALUATION YET. THE PATIENT IS ORIENTED TO SELF BUT NOT TO PLACE/TIME/SITUATION. HE IS ABLE TO EXPRESS, IN AN INTELLIGIBLE VOICE/SPEECH, SOME BASIC NEEDS LIKE TELLING ST IN [place] ONLY THAT HE IS HUNGRY OR THAT HE DOESN'T NOT WANT A PROCEDURE COMPLETED ON HIM. SOMETIMES HIS SPEECH IS RAPID AND LESS PRECISE BUT IT IS UNDERSTOOD WHEN ST ASKS HIM TO REPEAT OR SLOW DOWN. HE NEEDS FREQUENT REALITY ORIENTATION IN [place]. EDUCATED/TRAINED STAFF IN COMMUNICATION AND REALITY ORIENTATION TIPS IN [place]. PLAN CONTINUE WITH SKILLED DYSPHAGIA MANAGEMENT AND TX COMPLETE MODIFIED BARIUM SWALLOW STUDY WHEN COVID 19 NEGATIVE HE STILL HAS A HIGH RISK OF ASPIRATION (SILENT/AUDIBLE), WE NEED TO ATTEMPT TRIAL TX SO HE CAN HAVE SOME ORAL GRATIFICATION FOR QUALITY OF LIFE PURPOSES. (STUDY CAN BE DONE OUTPT IF D/C, DO NOT HOLD UP DC FOR THIS STUDY) FEEDING STAFF. CONTINUE WITH REALITY ORIENTATION DAILY IN [place]
--- NOTE | 2019-06-23 11:03 | General Progress Note ---
Assessment/Plan Status: progressing Assessment/Plan: 1. History of dementia. 2. CHF. 3. Hypertension. 4. BPH. 5. Constipation. 6. elevated LFTS 7. AMI 8. gallstones improving LFTS hep C positive>>> will send HCV RNA and patient needs out patient fu for treatment fu cardiology repeat labs in am ngt in place will start ngTF Subjective ROS Limited/Unobtainable: No Allergies: Coded Allergies: No Known Allergies (Unverified , 06/15/19) Objective Last 24 Hour Vital Signs Date Time Temp Pulse Resp B/P (MAP) Pulse Ox O2 Delivery O2 Flow Rate FiO2 06/23/19 10:01 64 155/89 06/23/19 08:00 97.2 64 20 155/89 (111) 100 06/23/19 04:00 97.2 71 20 160/88 (112) 96 06/23/19 04:00 47 06/23/19 04:00 2.0 06/22/19 21:37 98 Nasal Cannula 2.0 28 06/22/19 21:37 91 18 98 Nasal Cannula 2.0 28 06/22/19 21:00 Nasal Cannula 2.0 06/22/19 20:00 98.4 82 17 153/95 (114) 96 06/22/19 16:00 97.9 90 20 156/82 (106) 98 06/22/19 16:00 65 06/22/19 16:00 2.0 06/22/19 12:00 2.0 06/22/19 12:00 54 06/22/19 12:00 97.8 54 20 160/80 (106) 97 Intake and Output 06/22/19 06/23/19 19:00 07:00 # Voids 3 2 # Bowel Movements 2 1 Laboratory Tests 06/22/19 17:45: Urine Color Brown, Urine Appearance Clear, Urine pH 8, Urine Specific [place] 1.015, Urine Protein 1+H, Urine Glucose (UA) Negative, Urine Ketones Negative, Urine Blood Negative, Urine Nitrite Negative, Urine Bilirubin Negative, Urine Urobilinogen 8H, Urine Leukocyte Esterase Negative, Urine RBC 0-2H, Urine WBC 0- 2, Urine Squamous Epithelial Cells None, Urine Amorphous Sediment FewH, Urine Bacteria Few 06/23/19 06:50: White Blood Count 5.5, Red Blood Count 4.74, Hemoglobin 14.5, Hematocrit 42.5, Mean Corpuscular Volume 90, Mean Corpuscular Hemoglobin 30.6, Mean Corpuscular Hemoglobin Concent 34.1, Red Cell Distribution Width 12.7, Platelet Count 435, Mean Platelet Volume 5.3L, Neutrophils (%) (Auto) 71.0, Lymphocytes (%) (Auto) 19.4L, Monocytes (%) (Auto) 8.4, Eosinophils (%) (Auto) 0.7, Basophils (%) (Auto ) 0.4, Sodium Level 141, Potassium Level 4.2, Chloride Level 105, Carbon Dioxide Level 29, Anion Gap 7, Blood Urea Nitrogen 15, Creatinine 0.8, Estimat Glomerular Filtration Rate > 60, Glucose Level 114H, Calcium Level 9.2 Height (Feet): 5 Height (Inches): 2.00 Weight (Pounds): 130 General Appearance: lethargic EENT: normal ENT inspection Neck: supple Respiratory/Chest: decreased breath sounds Abdomen: normal bowel sounds, non tender, soft Extremities: non-tender Perry Quiroga MD Jun 23, 2019 11:02
[2019-06-23 12:00] VITALS: BP 141/81
--- NOTE | 2019-06-23 12:00 | Nephrology Progress Note ---
Assessment/Plan Problem List: (1) Dehydration (2) Electrolyte imbalance (3) Elevated LFTs (4) HTN (hypertension) Assessment Electrolyte imbalance Dehydration and free water deficit Pneumonia suspected COVID-19 infection Elevated troponin Dementia Cholelithiasis and elevated liver enzymes BPH Hypertension Plan DC IV fluid and PO KCL Add Norvasc Hydralazine as needed for blood pressure over 160 systolic Monitor electrolyte Continue per consultants Urine analysis ordered as none is available since admission Per orders Subjective ROS Limited/Unobtainable: No Constitutional: Reports: malaise, weakness Objective Objective Last 24 Hour Vital Signs Date Time Temp Pulse Resp B/P (MAP) Pulse Ox O2 Delivery O2 Flow Rate FiO2 06/23/19 10:01 64 155/89 06/23/19 09:00 Nasal Cannula 2.0 06/23/19 08:00 2.0 06/23/19 08:00 55 06/23/19 08:00 97.2 64 20 155/89 (111) 100 06/23/19 04:00 97.2 71 20 160/88 (112) 96 06/23/19 04:00 47 06/23/19 04:00 2.0 06/22/19 21:37 98 Nasal Cannula 2.0 28 06/22/19 21:37 91 18 98 Nasal Cannula 2.0 28 06/22/19 21:00 Nasal Cannula 2.0 06/22/19 20:00 98.4 82 17 153/95 (114) 96 06/22/19 16:00 97.9 90 20 156/82 (106) 98 06/22/19 16:00 65 06/22/19 16:00 2.0 06/22/19 12:00 2.0 06/22/19 12:00 54 06/22/19 12:00 97.8 54 20 160/80 (106) 97 Intake and Output 06/22/19 06/23/19 19:00 07:00 # Voids 3 2 # Bowel Movements 2 1 Laboratory Tests 06/22/19 17:45: Urine Color Brown, Urine Appearance Clear, Urine pH 8, Urine Specific [place] 1.015, Urine Protein 1+H, Urine Glucose (UA) Negative, Urine Ketones Negative, Urine Blood Negative, Urine Nitrite Negative, Urine Bilirubin Negative, Urine Urobilinogen 8H, Urine Leukocyte Esterase Negative, Urine RBC 0-2H, Urine WBC 0- 2, Urine Squamous Epithelial Cells None, Urine Amorphous Sediment FewH, Urine Bacteria Few 06/23/19 06:50: White Blood Count 5.5, Red Blood Count 4.74, Hemoglobin 14.5, Hematocrit 42.5, Mean Corpuscular Volume 90, Mean Corpuscular Hemoglobin 30.6, Mean Corpuscular Hemoglobin Concent 34.1, Red Cell Distribution Width 12.7, Platelet Count 435, Mean Platelet Volume 5.3L, Neutrophils (%) (Auto) 71.0, Lymphocytes (%) (Auto) 19.4L, Monocytes (%) (Auto) 8.4, Eosinophils (%) (Auto) 0.7, Basophils (%) (Auto ) 0.4, Sodium Level 141, Potassium Level 4.2, Chloride Level 105, Carbon Dioxide Level 29, Anion Gap 7, Blood Urea Nitrogen 15, Creatinine 0.8, Estimat Glomerular Filtration Rate > 60, Glucose Level 114H, Calcium Level 9.2 Height (Feet): 5 Height (Inches): 2.00 Weight (Pounds): 130 General Appearance: no apparent distress Cardiovascular: normal rate Respiratory/Chest: decreased breath sounds Abdomen: soft Drew Gonzalez MD Jun 23, 2019 11:59
--- NOTE | 2019-06-23 12:59 | Infectious Diseases Prog Note ---
Assessment/Plan Assessment/Plan IMPRESSION: COIVD19 Pneumonia, Cholelithiasis and elevated transaminase level, acidosis, dementia with behavioral problem. Dysphagia RECOMMENDATION: Discontinue ceftriaxone and Zithromax We will repeat COVID19 tests. If the condition become worse, we will start hydroxychloroquine. Subjective ROS Limited/Unobtainable: Yes Neurologic: Reports: confusion, other - on restraint Allergies: Coded Allergies: No Known Allergies (Unverified , 06/15/19) Objective Vital Signs Last 24 Hour Vital Signs Date Time Temp Pulse Resp B/P (MAP) Pulse Ox O2 Delivery O2 Flow Rate FiO2 06/23/19 10:01 64 155/89 06/23/19 09:00 Nasal Cannula 2.0 06/23/19 08:00 2.0 06/23/19 08:00 55 06/23/19 08:00 97.2 64 20 155/89 (111) 100 06/23/19 04:00 97.2 71 20 160/88 (112) 96 06/23/19 04:00 47 06/23/19 04:00 2.0 06/22/19 21:37 98 Nasal Cannula 2.0 28 06/22/19 21:37 91 18 98 Nasal Cannula 2.0 28 06/22/19 21:00 Nasal Cannula 2.0 06/22/19 20:00 98.4 82 17 153/95 (114) 96 06/22/19 16:00 97.9 90 20 156/82 (106) 98 06/22/19 16:00 65 06/22/19 16:00 2.0 Height (Feet): 5 Height (Inches): 2.00 Weight (Pounds): 130 General Appearance: no acute distress HEENT: mucous membranes moist Respiratory/Chest: lungs clear Cardiovascular: normal rate Abdomen: soft, non tender, other - NG tube feeding Extremities: no edema Neurologic/Psychiatric: alert, disoriented Microbiology Date/Time Source Procedure Growth Status 06/21/19 15:24 Nasopharynx Coronavirus COVID-19 PCR ([facility]) - Final Complete Laboratory Tests Test 06/22/19 17:45 06/23/19 06:50 Urine Color Brown Urine Appearance Clear Urine pH 8 (4.5-8.0) Urine Specific [place] 1.015 (1.005-1.035) Urine Protein 1+ (NEGATIVE) H Urine Glucose (UA) Negative (NEGATIVE) Urine Ketones Negative (NEGATIVE) Urine Blood Negative (NEGATIVE) Urine Nitrite Negative (NEGATIVE) Urine Bilirubin Negative (NEGATIVE) Urine Urobilinogen 8 MG/DL (0.0-1.0) H Urine Leukocyte Esterase Negative (NEGATIVE) Urine RBC 0-2 /HPF (0 - 0) H Urine WBC 0-2 /HPF (0 - 0) Urine Squamous Epithelial Cells None /LPF (NONE/OCC) Urine Amorphous Sediment Few /LPF (NONE) H Urine Bacteria Few /HPF (NONE) White Blood Count 5.5 K/UL (4.8-10.8) Red Blood Count 4.74 M/UL (4.70-6.10) Hemoglobin 14.5 G/DL (14.2-18.0) Hematocrit 42.5 % (42.0-52.0) Mean Corpuscular Volume 90 FL (80-99) Mean Corpuscular Hemoglobin 30.6 PG (27.0-31.0) Mean Corpuscular Hemoglobin Concent 34.1 G/DL (32.0-36.0) Red Cell Distribution Width 12.7 % (11.6-14.8) Platelet Count 435 K/UL (150-450) Mean Platelet Volume 5.3 FL (6.5-10.1) L Neutrophils (%) (Auto) 71.0 % (45.0-75.0) Lymphocytes (%) (Auto) 19.4 % (20.0-45.0) L Monocytes (%) (Auto) 8.4 % (1.0-10.0) Eosinophils (%) (Auto) 0.7 % (0.0-3.0) Basophils (%) (Auto) 0.4 % (0.0-2.0) Sodium Level 141 MMOL/L (136-145) Potassium Level 4.2 MMOL/L (3.5-5.1) Chloride Level 105 MMOL/L (98-107) Carbon Dioxide Level 29 MMOL/L (21-32) Anion Gap 7 mmol/L (5-15) Blood Urea Nitrogen 15 mg/dL (7-18) Creatinine 0.8 MG/DL (0.55-1.30) Estimat Glomerular Filtration Rate > 60 mL/min (>60) Glucose Level 114 MG/DL (74-106) H Calcium Level 9.2 MG/DL (8.5-10.1) Current Medications Medications (Trade) Dose Ordered Sig/Kaylan Route PRN Reason Start Time Stop Time Status Last Admin Dose Admin Acetaminophen (Tylenol) 500 mg Q6H PRN ORAL For Pain 06/16/19 00:15 07/16/19 00:14 Acetaminophen (Tylenol) 650 mg Q6H PRN ORAL For Headache 06/16/19 03:00 07/16/19 02:59 Albuterol Sulfate (Proventil MDI) 2 puff Q6H PRN INH Shortness of Breath 06/16/19 03:00 09/14/19 02:59 Amlodipine Besylate (Norvasc) 5 mg DAILY NG 06/23/19 12:00 07/23/19 11:59 Aspirin (ASA) 81 mg DAILY ORAL 06/16/19 09:00 07/31/19 08:59 06/23/19 10:02 Azithromycin 500 mg/Dextrose 275 ml @ 275 mls/hr Q24HRS IV 06/16/19 18:00 06/24/19 17:59 06/22/19 17:31 Ceftriaxone Sodium 1 gm/ Dextrose 55 ml @ 110 mls/hr Q24H IVPB 06/16/19 19:00 06/24/19 18:59 06/22/19 18:36 Docusate Sodium (Colace) 100 mg DAILY ORAL 06/16/19 09:00 07/16/19 08:59 06/23/19 10:00 Donepezil HCl (Aricept) 5 mg DAILY ORAL 06/16/19 09:00 07/16/19 08:59 06/23/19 10:01 Enoxaparin Sodium (Lovenox) 40 mg DAILY SUBQ 06/16/19 09:00 09/14/19 08:59 06/23/19 10:02 Hydralazine HCl (Apresoline) 25 mg Q4H PRN ORAL For blood pressure over 160 sy 06/22/19 13:30 09/20/19 13:29 Memantine (Namenda) 10 mg TWICE A DAY ORAL 06/16/19 09:00 07/16/19 08:59 06/23/19 10:01 Metoprolol Succinate (Toprol XL) 25 mg DAILY ORAL 06/19/19 19:15 09/17/19 19:14 06/23/19 10:01 Mirtazapine (Remeron) 15 mg BEDTIME ORAL 06/21/19 21:00 09/19/19 20:59 06/22/19 22:43 Ondansetron HCl (Zofran) 4 mg Q6H PRN IVP Nausea & Vomiting 06/16/19 03:00 07/16/19 02:59 Polyethylene Glycol (Miralax) 17 gm BEDTIME ORAL 06/17/19 21:00 07/17/19 20:59 06/22/19 22:43 Benigno Betancourt MD Jun 23, 2019 12:59
--- NOTE | 2019-06-23 14:56 | Hematology/Onc Progress Note ---
Assessment/Plan Assessment/Plan Assessment and Plan: # Leukopenia -- multiple etiologies could be related to underlying liver disease , medication-induced, infection versus viral syndrome, in this case likely due to COVID19+, and Hep C+ --> peripheral smear has been ordered and does not show significant abnormalities --> Medications have been reviewed --> Continue to monitor for improvement, trend cbc --> Hep panel and HIV have been ordered--> cw hep C++ exposure --> US abd ordered to r/o cirrhosis and hepatosplenomegaly --> none noted --> reverse isolation if ANC is <2000 --> Give neupogen if ANC <1000 --> .23 off abx, repeat covid pending # Suspected 2019 novel coronavirus infection --> per id, on plaq, abx --> iso --> pulm eval recs noted --> 06/22 off abx per id # Pneumonia --> on abx # Elevated troponin ==> nstemi per cards # Elevated LFTs --> likely hep C related The timing of this note does not necessarily reflect the time of the patient was seen. Greatly appreciate consultation. Subjective Allergies: Coded Allergies: No Known Allergies (Unverified , 06/15/19) Subjective 06/20 breathing is better, on iso for covid 19, wbc improved 06/21 labs better, no bleeding, no f/c, meds noted, hcv+ 06/22 restraints, off abx, repeat covid pending, or Objective Objective Current Medications Medications (Trade) Dose Ordered Sig/Kaylan Route PRN Reason Start Time Stop Time Status Last Admin Dose Admin Acetaminophen (Tylenol) 500 mg Q6H PRN ORAL For Pain 06/16/19 00:15 07/16/19 00:14 Acetaminophen (Tylenol) 650 mg Q6H PRN ORAL For Headache 06/16/19 03:00 07/16/19 02:59 Albuterol Sulfate (Proventil MDI) 2 puff Q6H PRN INH Shortness of Breath 06/16/19 03:00 09/14/19 02:59 Amlodipine Besylate (Norvasc) 5 mg DAILY NG 06/23/19 12:00 07/23/19 11:59 06/23/19 13:38 Aspirin (ASA) 81 mg DAILY ORAL 06/16/19 09:00 07/31/19 08:59 06/23/19 10:02 Docusate Sodium (Colace) 100 mg DAILY ORAL 06/16/19 09:00 07/16/19 08:59 06/23/19 10:00 Donepezil HCl (Aricept) 5 mg DAILY ORAL 06/16/19 09:00 07/16/19 08:59 06/23/19 10:01 Enoxaparin Sodium (Lovenox) 40 mg DAILY SUBQ 06/16/19 09:00 09/14/19 08:59 06/23/19 10:02 Hydralazine HCl (Apresoline) 25 mg Q4H PRN ORAL For blood pressure over 160 sy 06/22/19 13:30 09/20/19 13:29 Memantine (Namenda) 10 mg TWICE A DAY ORAL 06/16/19 09:00 07/16/19 08:59 06/23/19 10:01 Metoprolol Succinate (Toprol XL) 25 mg DAILY ORAL 06/19/19 19:15 09/17/19 19:14 06/23/19 10:01 Mirtazapine (Remeron) 15 mg BEDTIME ORAL 06/21/19 21:00 09/19/19 20:59 06/22/19 22:43 Ondansetron HCl (Zofran) 4 mg Q6H PRN IVP Nausea & Vomiting 06/16/19 03:00 07/16/19 02:59 Polyethylene Glycol (Miralax) 17 gm BEDTIME ORAL 06/17/19 21:00 07/17/19 20:59 06/22/19 22:43 Last 24 Hour Vital Signs Date Time Temp Pulse Resp B/P (MAP) Pulse Ox O2 Delivery O2 Flow Rate FiO2 06/23/19 13:38 63 141/81 06/23/19 12:00 55 06/23/19 12:00 2.0 06/23/19 12:00 97.3 63 20 141/81 (101) 100 06/23/19 10:01 64 155/89 06/23/19 09:00 Nasal Cannula 2.0 06/23/19 08:00 2.0 06/23/19 08:00 55 06/23/19 08:00 97.2 64 20 155/89 (111) 100 06/23/19 04:00 97.2 71 20 160/88 (112) 96 06/23/19 04:00 47 06/23/19 04:00 2.0 06/22/19 21:37 98 Nasal Cannula 2.0 28 06/22/19 21:37 91 18 98 Nasal Cannula 2.0 28 06/22/19 21:00 Nasal Cannula 2.0 06/22/19 20:00 98.4 82 17 153/95 (114) 96 06/22/19 16:00 97.9 90 20 156/82 (106) 98 06/22/19 16:00 65 06/22/19 16:00 2.0 06/22/19 12:00 2.0 06/22/19 12:00 54 06/22/19 12:00 97.8 54 20 160/80 (106) 97 06/22/19 09:50 87 161/89 06/22/19 09:00 Nasal Cannula 2.0 06/22/19 08:00 49 06/22/19 08:00 2.0 06/22/19 08:00 97.8 49 20 161/89 (113) 97 06/22/19 04:00 98.4 56 18 148/95 (112) 97 06/22/19 04:00 52 06/22/19 04:00 2.0 06/22/19 00:00 67 06/22/19 00:00 98.1 63 18 157/81 (106) 96 06/21/19 21:00 Nasal Cannula 2.0 06/21/19 20:00 2.0 06/21/19 20:00 98.2 61 19 155/69 (97) 96 06/21/19 20:00 60 06/21/19 16:00 2.0 06/21/19 16:00 97.3 66 20 148/86 (106) 97 06/21/19 16:00 76 Intake and Output 06/22/19 06/23/19 19:00 07:00 # Voids 3 2 # Bowel Movements 2 1 Labs Test 06/21/19 04:00 06/22/19 05:00 06/22/19 08:15 06/22/19 17:45 White Blood Count 4.8 K/UL (4.8-10.8) 5.0 K/UL (4.8-10.8) Red Blood Count 4.62 M/UL (4.70-6.10) 4.88 M/UL (4.70-6.10) Hemoglobin 14.0 G/DL (14.2-18.0) 14.8 G/DL (14.2-18.0) Hematocrit 41.4 % (42.0-52.0) 44.0 % (42.0-52.0) Mean Corpuscular Volume 90 FL (80-99) 90 FL (80-99) Mean Corpuscular Hemoglobin 30.4 PG (27.0-31.0) 30.3 PG (27.0-31.0) Mean Corpuscular Hemoglobin Concent 33.9 G/DL (32.0-36.0) 33.6 G/DL (32.0-36.0) Red Cell Distribution Width 12.5 % (11.6-14.8) 12.3 % (11.6-14.8) Platelet Count 365 K/UL (150-450) 410 K/UL (150-450) Mean Platelet Volume 5.0 FL (6.5-10.1) 6.1 FL (6.5-10.1) Neutrophils (%) (Auto) 64.1 % (45.0-75.0) 64.1 % (45.0-75.0) Lymphocytes (%) (Auto) 23.2 % (20.0-45.0) 26.4 % (20.0-45.0) Monocytes (%) (Auto) 11.2 % (1.0-10.0) 8.7 % (1.0-10.0) Eosinophils (%) (Auto) 1.1 % (0.0-3.0) 0.2 % (0.0-3.0) Basophils (%) (Auto) 0.4 % (0.0-2.0) 0.7 % (0.0-2.0) Sodium Level 147 MMOL/L (136-145) 128 MMOL/L (136-145) 144 MMOL/L (136-145) Potassium Level 3.0 MMOL/L (3.5-5.1) 7.7 MMOL/L (3.5-5.1) 3.9 MMOL/L (3.5-5.1) Chloride Level 111 MMOL/L (98-107) 98 MMOL/L (98-107) 107 MMOL/L (98-107) Carbon Dioxide Level 26 MMOL/L (21-32) 30 MMOL/L (21-32) 29 MMOL/L (21-32) Anion Gap 10 mmol/L (5-15) -1 mmol/L (5-15) 8 mmol/L (5-15) Blood Urea Nitrogen 14 mg/dL (7-18) 11 mg/dL (7-18) 13 mg/dL (7-18) Creatinine 0.8 MG/DL (0.55-1.30) 0.8 MG/DL (0.55-1.30) 0.7 MG/DL (0.55-1.30) Estimat Glomerular Filtration Rate > 60 mL/min (>60) > 60 mL/min (>60) > 60 mL/min (>60) Glucose Level 146 MG/DL (74-106) 517 MG/DL (74-106) 136 MG/DL (74-106) Calcium Level 8.2 MG/DL (8.5-10.1) 8.0 MG/DL (8.5-10.1) 8.2 MG/DL (8.5-10.1) Phosphorus Level 3.0 MG/DL (2.5-4.9) 2.8 MG/DL (2.5-4.9) Magnesium Level 2.1 MG/DL (1.8-2.4) 1.9 MG/DL (1.8-2.4) D-Dimer 4.38 mg/L FEU (0.00-0.49) Hemoglobin A1c 7.2 % (4.3-6.0) Uric Acid 2.8 MG/DL (2.6-7.2) Ferritin 818 NG/ML (8-388) Total Bilirubin 0.5 MG/DL (0.2-1.0) 0.5 MG/DL (0.2-1.0) Gamma Glutamyl Transpeptidase 262 U/L (5-85) Aspartate Amino Transf (AST/SGOT) 125 U/L (15-37) 144 U/L (15-37) Alanine Aminotransferase (ALT/SGPT) 79 U/L (12-78) 103 U/L (12-78) Alkaline Phosphatase 100 U/L (46-116) 105 U/L (46-116) Lactate Dehydrogenase 255 U/L (81-234) Total Creatine Kinase 33 U/L (26-308) Troponin I 0.097 ng/mL (0.000-0.056) C-Reactive Protein, Quantitative 4.1 mg/dL (0.00-0.90) Pro-B-Type Natriuretic Peptide 1999 pg/mL (0-125) Total Protein 7.1 G/DL (6.4-8.2) 7.6 G/DL (6.4-8.2) Albumin 1.9 G/DL (3.4-5.0) 2.0 G/DL (3.4-5.0) Globulin 5.2 g/dL 5.6 g/dL Albumin/Globulin Ratio 0.4 (1.0-2.7) 0.4 (1.0-2.7) Triglycerides Level 87 MG/DL (30-150) Cholesterol Level 84 MG/DL (< 200) LDL Cholesterol 48 mg/dL (<100) HDL Cholesterol 26 MG/DL (40-60) Cholesterol/HDL Ratio 3.2 (3.3-4.4) Vitamin B12 Level 632 PG/ML (193-986) Folate 13.0 NG/ML (8.6-58.9) Thyroid Stimulating Hormone (TSH) 0.292 uiU/mL (0.358-3.740) Urine Color Brown Urine Appearance Clear Urine pH 8 (4.5-8.0) Urine Specific [place] 1.015 (1.005-1.035) Urine Protein 1+ (NEGATIVE) Urine Glucose (UA) Negative (NEGATIVE) Urine Ketones Negative (NEGATIVE) Urine Blood Negative (NEGATIVE) Urine Nitrite Negative (NEGATIVE) Urine Bilirubin Negative (NEGATIVE) Urine Urobilinogen 8 MG/DL (0.0-1.0) Urine Leukocyte Esterase Negative (NEGATIVE) Urine RBC 0-2 /HPF (0 - 0) Urine WBC 0-2 /HPF (0 - 0) Urine Squamous Epithelial Cells None /LPF (NONE/OCC) Urine Amorphous Sediment Few /LPF (NONE) Urine Bacteria Few /HPF (NONE) Test 06/23/19 06:50 White Blood Count 5.5 K/UL (4.8-10.8) Red Blood Count 4.74 M/UL (4.70-6.10) Hemoglobin 14.5 G/DL (14.2-18.0) Hematocrit 42.5 % (42.0-52.0) Mean Corpuscular Volume 90 FL (80-99) Mean Corpuscular Hemoglobin 30.6 PG (27.0-31.0) Mean Corpuscular Hemoglobin Concent 34.1 G/DL (32.0-36.0) Red Cell Distribution Width 12.7 % (11.6-14.8) Platelet Count 435 K/UL (150-450) Mean Platelet Volume 5.3 FL (6.5-10.1) Neutrophils (%) (Auto) 71.0 % (45.0-75.0) Lymphocytes (%) (Auto) 19.4 % (20.0-45.0) Monocytes (%) (Auto) 8.4 % (1.0-10.0) Eosinophils (%) (Auto) 0.7 % (0.0-3.0) Basophils (%) (Auto) 0.4 % (0.0-2.0) Sodium Level 141 MMOL/L (136-145) Potassium Level 4.2 MMOL/L (3.5-5.1) Chloride Level 105 MMOL/L (98-107) Carbon Dioxide Level 29 MMOL/L (21-32) Anion Gap 7 mmol/L (5-15) Blood Urea Nitrogen 15 mg/dL (7-18) Creatinine 0.8 MG/DL (0.55-1.30) Estimat Glomerular Filtration Rate > 60 mL/min (>60) Glucose Level 114 MG/DL (74-106) Calcium Level 9.2 MG/DL (8.5-10.1) Height (Feet): 5 Height (Inches): 2.00 Weight (Pounds): 130 Objective Physical Exam General: Awake and somewhat confused, no acute distress HEENT: NC/AT. EOMI. Cardiovascular: RRR. S1 and S2 normal. No murmur appreciated Resp: Mild tachypnea, normal work of breathing. On 2 L nasal cannula. Abdomen: Abdomen is soft, nondistended. Nontender Skin: Intact. No abrasions, laceration MSK: Normal tone and bulk. Moving all extremities Neuro: Awake and somewhat confused. Poor historian Kleynberg,Geraldo L. MD Jun 23, 2019 14:56
--- NOTE | 2019-06-23 15:56 | Diagnostic Imaging Report ---
Indication: Post nasogastric tube placement Technique: Supine view of the abdomen Comparison: 06/22/2019 Findings: There is a nasogastric tube in place, tip projected at the level gastric antrum near the pylorus in good position. Considerable gas is seen in nondilated bowel loops. Impression: Satisfactory nasogastric tube position
[2019-06-23 16:00] VITALS: BP 135/95
--- NOTE | 2019-06-23 16:22 | NUR ---
NURSE NOTES: NGT clogged Dr. Quiroga aware and ordered received to insert new NGT. Noted and carried out. New NGT placement verified via KUB which is in satisfactory position. Dr. Quiroga Ordered OK to use and start TF as previously ordered.
--- NOTE | 2019-06-23 19:37 | NUR ---
HAND-OFF: Report given to Clothes [employer]. Plan of care endorsed.
--- NOTE | 2019-06-23 19:38 | NUR ---
NURSE NOTES: Received pt from MANOLO Duong. Pt is awake and resting in bed in no acute distress, with HOB in high Fowlers position. Nasal cannula on at 2L. Iv site intact. NG tube intact in left nare. Feeding began at 1700, currently at 23ml/HR. Will increase feeding per order. Bilateral soft wrist restraints on with 2 finger lengths gap.
[2019-06-23 20:00] VITALS: BP 149/94
--- NOTE | 2019-06-23 20:30 | General Progress Note ---
Assessment/Plan Problem List: (1) Elevated troponin ICD Codes: R79.89 - Other specified abnormal findings of blood chemistry SNOMED: 648869650, 061082774, 935577318 (2) Elevated LFTs ICD Codes: R79.89 - Other specified abnormal findings of blood chemistry SNOMED: 529632890, 668260255, 581187369 (3) Pneumonia ICD Codes: J18.9 - Pneumonia, unspecified organism SNOMED: 935367018, 807023169, 982880853 (4) Suspected 2019 novel coronavirus infection ICD Codes: R68.89 - Other general symptoms and signs SNOMED: 114043938 Status: progressing Assessment/Plan: covid positive pna lyte abnormamlity afebrile not hypoxic mildly elevated lft.improved Subjective ROS Limited/Unobtainable: Yes Allergies: Coded Allergies: No Known Allergies (Unverified , 06/15/19) Objective Last 24 Hour Vital Signs Date Time Temp Pulse Resp B/P (MAP) Pulse Ox O2 Delivery O2 Flow Rate FiO2 06/23/19 16:00 97.4 68 22 135/95 (108) 96 06/23/19 16:00 72 06/23/19 16:00 2.0 06/23/19 13:38 63 141/81 06/23/19 12:00 55 06/23/19 12:00 2.0 06/23/19 12:00 97.3 63 20 141/81 (101) 100 06/23/19 10:01 64 155/89 06/23/19 09:00 Nasal Cannula 2.0 06/23/19 08:00 2.0 06/23/19 08:00 55 06/23/19 08:00 97.2 64 20 155/89 (111) 100 06/23/19 04:00 97.2 71 20 160/88 (112) 96 06/23/19 04:00 47 06/23/19 04:00 2.0 06/22/19 21:37 98 Nasal Cannula 2.0 28 06/22/19 21:37 91 18 98 Nasal Cannula 2.0 28 06/22/19 21:00 Nasal Cannula 2.0 Intake and Output 06/22/19 06/23/19 19:00 07:00 # Voids 3 2 # Bowel Movements 2 1 Laboratory Tests 06/23/19 06:50: White Blood Count 5.5, Red Blood Count 4.74, Hemoglobin 14.5, Hematocrit 42.5, Mean Corpuscular Volume 90, Mean Corpuscular Hemoglobin 30.6, Mean Corpuscular Hemoglobin Concent 34.1, Red Cell Distribution Width 12.7, Platelet Count 435, Mean Platelet Volume 5.3L, Neutrophils (%) (Auto) 71.0, Lymphocytes (%) (Auto) 19.4L, Monocytes (%) (Auto) 8.4, Eosinophils (%) (Auto) 0.7, Basophils (%) (Auto ) 0.4, Sodium Level 141, Potassium Level 4.2, Chloride Level 105, Carbon Dioxide Level 29, Anion Gap 7, Blood Urea Nitrogen 15, Creatinine 0.8, Estimat Glomerular Filtration Rate > 60, Glucose Level 114H, Calcium Level 9.2 Height (Feet): 5 Height (Inches): 2.00 Weight (Pounds): 130 Gorge Malhotra MD Jun 23, 2019 20:30
[2019-06-23] MEDS: Miralax 17gm pkt ORAL SCH (21:00)
--- NOTE | 2019-06-23 21:02 | Cardiology Progress Note ---
Assessment/Plan Assessment/Plan 1. Dyspnea due to possibly combination of COVID-19 pneumonia in addition to with acute congestive heart failure in face of elevated proBNP, continue lasix and metoprolol. Awaiting 2D echocardiography to verify heart failure. 2. Possible [id number] myocardial infarction or elevated troponin I level could be secondary to myonecrosis that is seen in congestive heart failure. 3. HCV infection. Subjective Subjective Sinus rhythm at rate of 68. Objective Last 24 Hour Vital Signs Date Time Temp Pulse Resp B/P (MAP) Pulse Ox O2 Delivery O2 Flow Rate FiO2 06/23/19 16:00 97.4 68 22 135/95 (108) 96 06/23/19 16:00 72 06/23/19 16:00 2.0 06/23/19 13:38 63 141/81 06/23/19 12:00 55 06/23/19 12:00 2.0 06/23/19 12:00 97.3 63 20 141/81 (101) 100 06/23/19 10:01 64 155/89 06/23/19 09:00 Nasal Cannula 2.0 06/23/19 08:00 2.0 06/23/19 08:00 55 06/23/19 08:00 97.2 64 20 155/89 (111) 100 06/23/19 04:00 97.2 71 20 160/88 (112) 96 06/23/19 04:00 47 06/23/19 04:00 2.0 06/22/19 21:37 98 Nasal Cannula 2.0 28 06/22/19 21:37 91 18 98 Nasal Cannula 2.0 28 Intake and Output 06/22/19 06/23/19 19:00 07:00 # Voids 3 2 # Bowel Movements 2 1 Laboratory Tests Test 06/23/19 06:50 White Blood Count 5.5 K/UL (4.8-10.8) Red Blood Count 4.74 M/UL (4.70-6.10) Hemoglobin 14.5 G/DL (14.2-18.0) Hematocrit 42.5 % (42.0-52.0) Mean Corpuscular Volume 90 FL (80-99) Mean Corpuscular Hemoglobin 30.6 PG (27.0-31.0) Mean Corpuscular Hemoglobin Concent 34.1 G/DL (32.0-36.0) Red Cell Distribution Width 12.7 % (11.6-14.8) Platelet Count 435 K/UL (150-450) Mean Platelet Volume 5.3 FL (6.5-10.1) L Neutrophils (%) (Auto) 71.0 % (45.0-75.0) Lymphocytes (%) (Auto) 19.4 % (20.0-45.0) L Monocytes (%) (Auto) 8.4 % (1.0-10.0) Eosinophils (%) (Auto) 0.7 % (0.0-3.0) Basophils (%) (Auto) 0.4 % (0.0-2.0) Sodium Level 141 MMOL/L (136-145) Potassium Level 4.2 MMOL/L (3.5-5.1) Chloride Level 105 MMOL/L (98-107) Carbon Dioxide Level 29 MMOL/L (21-32) Anion Gap 7 mmol/L (5-15) Blood Urea Nitrogen 15 mg/dL (7-18) Creatinine 0.8 MG/DL (0.55-1.30) Estimat Glomerular Filtration Rate > 60 mL/min (>60) Glucose Level 114 MG/DL (74-106) H Calcium Level 9.2 MG/DL (8.5-10.1) Microbiology Date/Time Source Procedure Growth Status 06/21/19 15:24 Nasopharynx Coronavirus COVID-19 PCR ([facility]) - Final Complete Objective HEENT: Atraumatic and normocephalic. Anicteric. Pupils are equal, round, and reactive to light and accommodation. Extraocular muscles intact. NECK: JVP is less than 5 cm. No carotid bruit. Carotid upstroke is 2+ bilaterally. CARDIOVASCULAR: Normal S1 and S2. Regular rate and rhythm. No murmurs, gallops, or rubs. PMI is at fourth intercostal space at midclavicular line. LUNGS: Diminished breath sounds in both bases with associated crackles. ABDOMEN: Soft, nontender, and nondistended. No hepatosplenomegaly. Positive bowel sounds. EXTREMITIES: No evidence of edema, clubbing, or cyanosis. Rolf Moreno MD Jun 23, 2019 21:01
--- NOTE | 2019-06-23 23:55 | Pulmonology Progress Note ---
Assessment/Plan Assessment/Plan Pulmonary Progress Note HPI: Patient is a 88-year-old male history of Dementia, Congestive Heart Failure , admitted from group home facility with Pneumonia, COVID 19 positive, noted to have fever and shortness of breath, chest congestion and tightness for 2 days. Noted to be confused in the ED. Has been febrile with low-grade temperatures for the past 2 days. Denies vomiting or diarrhea or abdominal pain. Stable O2 requirements - 2L NC, stable Pulmonary Status PMH: Dementia, Congestive Heart Failure Social Hx: Long-Term Resident FHx: NC Allergies: No Known Allergies All Other Systems: limited - AMS Physical Exam Vital signs noted General: Awake and somewhat confused, no acute distress HEENT: NC/AT. EOMI. Cardiovascular: RRR. S1 and S2 normal. No murmur appreciated Resp: Mild tachypnea, normal work of breathing. On 2 L nasal cannula. No cough Abdomen: Abdomen is soft, nondistended. Nontender Skin: Intact. No abrasions, laceration or rash noted MSK: Normal tone and bulk. Moving all extremities. No obvious deformity. Neuro: Awake and somewhat confused. Poor historian. No focal signs Impression: Pneumonia Suspected 2019 novel coronavirus infection Elevated troponin Elevated LFTs Lymphopenia Dementia Congestive Heart Failure Long-Term Resident Plan Antibiotics/antivirals per ID O2 PRN Albuterol MDI PRN PPX - Lovenox ASA Monitor labs - hypokalemia - s/p supplementation Monitor cultures/viral studies Ultrasound of the abdomen pending. Isolation for suspected COVID-19 infection Laboratory Tests noted EKG Rate: normal Rhythm: NSR ST Segments: no acute changes Sinus rhythm, left axis deviation. Occasional PACs. T wave inversions, no ST segment changes Chest X-Ray: Consolidations in the left lower lobe may represent an early pneumonia. No effusion. Current CXR stable infiltrates . Subjective ROS Limited/Unobtainable: No Constitutional: Reports: other - poor appetite Respiratory: Reports: shortness of breath Allergies: Coded Allergies: No Known Allergies (Unverified , 06/15/19) Objective Last 24 Hour Vital Signs Date Time Temp Pulse Resp B/P (MAP) Pulse Ox O2 Delivery O2 Flow Rate FiO2 06/23/19 21:00 Nasal Cannula 2.0 06/23/19 20:00 97.5 63 21 149/94 (112) 96 4/23/20 20:00 2.0 06/23/19 20:00 63 06/23/19 16:00 97.4 68 22 135/95 (108) 96 06/23/19 16:00 72 06/23/19 16:00 2.0 06/23/19 13:38 63 141/81 06/23/19 12:00 55 06/23/19 12:00 2.0 06/23/19 12:00 97.3 63 20 141/81 (101) 100 06/23/19 10:01 64 155/89 06/23/19 09:00 Nasal Cannula 2.0 06/23/19 08:00 2.0 06/23/19 08:00 55 06/23/19 08:00 97.2 64 20 155/89 (111) 100 06/23/19 04:00 97.2 71 20 160/88 (112) 96 06/23/19 04:00 47 06/23/19 04:00 2.0 Intake and Output 06/22/19 06/23/19 19:00 07:00 # Voids 3 2 # Bowel Movements 2 1 General Appearance: no acute distress HEENT: mucous membranes moist Abdomen: soft, non tender, other - NG tube feeding Extremities: no edema Neurologic/Psychiatric: alert, disoriented Microbiology Date/Time Source Procedure Growth Status 06/21/19 15:24 Nasopharynx Coronavirus COVID-19 PCR ([facility]AKILA) - Final Complete Laboratory Tests 06/23/19 06:50: White Blood Count 5.5, Red Blood Count 4.74, Hemoglobin 14.5, Hematocrit 42.5, Mean Corpuscular Volume 90, Mean Corpuscular Hemoglobin 30.6, Mean Corpuscular Hemoglobin Concent 34.1, Red Cell Distribution Width 12.7, Platelet Count 435, Mean Platelet Volume 5.3L, Neutrophils (%) (Auto) 71.0, Lymphocytes (%) (Auto) 19.4L, Monocytes (%) (Auto) 8.4, Eosinophils (%) (Auto) 0.7, Basophils (%) (Auto ) 0.4, Sodium Level 141, Potassium Level 4.2, Chloride Level 105, Carbon Dioxide Level 29, Anion Gap 7, Blood Urea Nitrogen 15, Creatinine 0.8, Estimat Glomerular Filtration Rate > 60, Glucose Level 114H, Calcium Level 9.2 Current Medications Medications (Trade) Dose Ordered Sig/Kaylan Route PRN Reason Start Time Stop Time Status Last Admin Dose Admin Acetaminophen (Tylenol) 500 mg Q6H PRN ORAL For Pain 06/16/19 00:15 07/16/19 00:14 Acetaminophen (Tylenol) 650 mg Q6H PRN ORAL For Headache 06/16/19 03:00 07/16/19 02:59 Albuterol Sulfate (Proventil MDI) 2 puff Q6H PRN INH Shortness of Breath 06/16/19 03:00 09/14/19 02:59 Amlodipine Besylate (Norvasc) 5 mg DAILY NG 06/23/19 12:00 07/23/19 11:59 06/23/19 13:38 Aspirin (ASA) 81 mg DAILY ORAL 06/16/19 09:00 07/31/19 08:59 06/23/19 10:02 Docusate Sodium (Colace) 100 mg DAILY ORAL 06/16/19 09:00 07/16/19 08:59 06/23/19 10:00 Donepezil HCl (Aricept) 5 mg DAILY ORAL 06/16/19 09:00 07/16/19 08:59 06/23/19 10:01 Enoxaparin Sodium (Lovenox) 40 mg DAILY SUBQ 06/16/19 09:00 09/14/19 08:59 06/23/19 10:02 Hydralazine HCl (Apresoline) 25 mg Q4H PRN ORAL For blood pressure over 160 sy 06/22/19 13:30 09/20/19 13:29 Memantine (Namenda) 10 mg TWICE A DAY ORAL 06/16/19 09:00 07/16/19 08:59 06/23/19 16:58 Metoprolol Succinate (Toprol XL) 25 mg DAILY ORAL 06/19/19 19:15 09/17/19 19:14 06/23/19 10:01 Mirtazapine (Remeron) 15 mg BEDTIME ORAL 06/21/19 21:00 09/19/19 20:59 06/23/19 21:00 Ondansetron HCl (Zofran) 4 mg Q6H PRN IVP Nausea & Vomiting 06/16/19 03:00 07/16/19 02:59 Polyethylene Glycol (Miralax) 17 gm BEDTIME ORAL 06/17/19 21:00 07/17/19 20:59 06/23/19 21:00 Andrew Diaz MD Jun 23, 2019 23:55
[2019-06-24] VITALS: BP 138/90
[2019-06-24 04:00] VITALS: BP 141/89
--- NOTE | 2019-06-24 06:10 | Hematology/Onc Progress Note ---
Assessment/Plan Assessment/Plan Assessment and Plan: # Leukopenia -- multiple etiologies could be related to underlying liver disease , medication-induced, infection versus viral syndrome, in this case likely due to COVID19+, and Hep C+ --> peripheral smear has been ordered and does not show significant abnormalities --> Medications have been reviewed --> Continue to monitor for improvement, trend cbc --> Hep panel and HIV have been ordered--> cw hep C++ exposure --> US abd ordered to r/o cirrhosis and hepatosplenomegaly --> none noted --> reverse isolation if ANC is <2000 --> Give neupogen if ANC <1000 --> 4.23 off abx, repeat covid pending # Suspected 2019 novel coronavirus infection --> per id, on plaq, abx --> iso --> pulm eval recs noted --> 06/22 off abx per id # Pneumonia --> on abx # Elevated troponin ==> nstemi per cards # Elevated LFTs --> likely hep C related The timing of this note does not necessarily reflect the time of the patient was seen. Greatly appreciate consultation. Subjective Constitutional: Denies: no symptoms, chills, fever, malaise, weakness, other HEENT: Denies: no symptoms, eye pain, blurred vision, tearing, double vision, ear pain, ear discharge, nose pain, nose congestion, throat pain, throat swelling, mouth pain, mouth swelling, other Cardiovascular: Denies: no symptoms, chest pain, edema, irregular heart rate, lightheadedness, palpitations, syncope, other Respiratory: Denies: no symptoms, cough, shortness of breath, SOB with excertion, SOB at rest, sputum, wheezing, other Gastrointestinal/Abdominal: Denies: no symptoms, abdomen distended, abdominal pain, black stools, tarry stools, blood in stool, constipated, diarrhea, difficulty swallowing, nausea, poor appetite, poor fluid intake, rectal bleeding , vomiting, other Genitourinary: Denies: no symptoms, burning, discharge, frequency, flank pain, hematuria, incontinence, pain, urgency, other Neurologic/Psychiatric: Denies: no symptoms, anxiety, depressed, emotional problems, headache, numbness, paresthesia, pre-existing deficit, seizure, tingling, tremors, weakness, other Endocrine: Denies: no symptoms, excessive sweating, flushing, intolerance to cold, intolerance to heat, increased hunger, increased thirst, increased urine, unexplained weight gain, unexplained weight loss, other Allergies: Coded Allergies: No Known Allergies (Unverified , 06/15/19) Subjective 06/20 breathing is better, on iso for covid 19, wbc improved 06/21 labs better, no bleeding, no f/c, meds noted, hcv+ 06/22 restraints, off abx, repeat covid pending, nc 06/23 no bleeding, labs noted, no night sweats, cbc reviewed, on 2l nc Objective Objective Current Medications Medications (Trade) Dose Ordered Sig/Kaylan Route PRN Reason Start Time Stop Time Status Last Admin Dose Admin Acetaminophen (Tylenol) 500 mg Q6H PRN ORAL For Pain 06/16/19 00:15 07/16/19 00:14 Acetaminophen (Tylenol) 650 mg Q6H PRN ORAL For Headache 06/16/19 03:00 07/16/19 02:59 Albuterol Sulfate (Proventil MDI) 2 puff Q6H PRN INH Shortness of Breath 06/16/19 03:00 09/14/19 02:59 Amlodipine Besylate (Norvasc) 5 mg DAILY NG 06/23/19 12:00 07/23/19 11:59 06/23/19 13:38 Aspirin (ASA) 81 mg DAILY ORAL 06/16/19 09:00 07/31/19 08:59 06/23/19 10:02 Docusate Sodium (Colace) 100 mg DAILY ORAL 06/16/19 09:00 07/16/19 08:59 06/23/19 10:00 Donepezil HCl (Aricept) 5 mg DAILY ORAL 06/16/19 09:00 07/16/19 08:59 06/23/19 10:01 Enoxaparin Sodium (Lovenox) 40 mg DAILY SUBQ 06/16/19 09:00 09/14/19 08:59 06/23/19 10:02 Hydralazine HCl (Apresoline) 25 mg Q4H PRN ORAL For blood pressure over 160 sy 06/22/19 13:30 09/20/19 13:29 Memantine (Namenda) 10 mg TWICE A DAY ORAL 06/16/19 09:00 07/16/19 08:59 06/23/19 16:58 Metoprolol Succinate (Toprol XL) 25 mg DAILY ORAL 06/19/19 19:15 09/17/19 19:14 06/23/19 10:01 Mirtazapine (Remeron) 15 mg BEDTIME ORAL 06/21/19 21:00 09/19/19 20:59 06/23/19 21:00 Ondansetron HCl (Zofran) 4 mg Q6H PRN IVP Nausea & Vomiting 06/16/19 03:00 07/16/19 02:59 Polyethylene Glycol (Miralax) 17 gm BEDTIME ORAL 06/17/19 21:00 07/17/19 20:59 06/23/19 21:00 Last 24 Hour Vital Signs Date Time Temp Pulse Resp B/P (MAP) Pulse Ox O2 Delivery O2 Flow Rate FiO2 06/24/19 04:00 98.4 86 21 141/89 (106) 96 06/24/19 04:00 2.0 06/24/19 04:00 86 06/24/19 00:00 97.9 78 20 138/90 (106) 96 06/24/19 00:00 78 06/23/19 21:00 Nasal Cannula 2.0 06/23/19 20:00 97.5 63 21 149/94 (112) 96 06/23/19 20:00 2.0 06/23/19 20:00 63 06/23/19 16:00 97.4 68 22 135/95 (108) 96 06/23/19 16:00 72 06/23/19 16:00 2.0 06/23/19 13:38 63 141/81 06/23/19 12:00 55 06/23/19 12:00 2.0 06/23/19 12:00 97.3 63 20 141/81 (101) 100 06/23/19 10:01 64 155/89 06/23/19 09:00 Nasal Cannula 2.0 06/23/19 08:00 2.0 06/23/19 08:00 55 06/23/19 08:00 97.2 64 20 155/89 (111) 100 06/23/19 04:00 97.2 71 20 160/88 (112) 96 06/23/19 04:00 47 06/23/19 04:00 2.0 06/22/19 21:37 98 Nasal Cannula 2.0 28 06/22/19 21:37 91 18 98 Nasal Cannula 2.0 28 06/22/19 21:00 Nasal Cannula 2.0 06/22/19 20:00 98.4 82 17 153/95 (114) 96 06/22/19 16:00 97.9 90 20 156/82 (106) 98 06/22/19 16:00 65 06/22/19 16:00 2.0 06/22/19 12:00 2.0 06/22/19 12:00 54 06/22/19 12:00 97.8 54 20 160/80 (106) 97 06/22/19 09:50 87 161/89 06/22/19 09:00 Nasal Cannula 2.0 06/22/19 08:00 49 06/22/19 08:00 2.0 06/22/19 08:00 97.8 49 20 161/89 (113) 97 Intake and Output 06/23/19 06/24/19 19:00 07:00 # Voids 1 Labs Test 06/22/19 05:00 06/22/19 08:15 06/22/19 17:45 06/23/19 06:50 White Blood Count 5.0 K/UL (4.8-10.8) 5.5 K/UL (4.8-10.8) Red Blood Count 4.88 M/UL (4.70-6.10) 4.74 M/UL (4.70-6.10) Hemoglobin 14.8 G/DL (14.2-18.0) 14.5 G/DL (14.2-18.0) Hematocrit 44.0 % (42.0-52.0) 42.5 % (42.0-52.0) Mean Corpuscular Volume 90 FL (80-99) 90 FL (80-99) Mean Corpuscular Hemoglobin 30.3 PG (27.0-31.0) 30.6 PG (27.0-31.0) Mean Corpuscular Hemoglobin Concent 33.6 G/DL (32.0-36.0) 34.1 G/DL (32.0-36.0) Red Cell Distribution Width 12.3 % (11.6-14.8) 12.7 % (11.6-14.8) Platelet Count 410 K/UL (150-450) 435 K/UL (150-450) Mean Platelet Volume 6.1 FL (6.5-10.1) 5.3 FL (6.5-10.1) Neutrophils (%) (Auto) 64.1 % (45.0-75.0) 71.0 % (45.0-75.0) Lymphocytes (%) (Auto) 26.4 % (20.0-45.0) 19.4 % (20.0-45.0) Monocytes (%) (Auto) 8.7 % (1.0-10.0) 8.4 % (1.0-10.0) Eosinophils (%) (Auto) 0.2 % (0.0-3.0) 0.7 % (0.0-3.0) Basophils (%) (Auto) 0.7 % (0.0-2.0) 0.4 % (0.0-2.0) D-Dimer 4.38 mg/L FEU (0.00-0.49) Sodium Level 128 MMOL/L (136-145) 144 MMOL/L (136-145) 141 MMOL/L (136-145) Potassium Level 7.7 MMOL/L (3.5-5.1) 3.9 MMOL/L (3.5-5.1) 4.2 MMOL/L (3.5-5.1) Chloride Level 98 MMOL/L (98-107) 107 MMOL/L (98-107) 105 MMOL/L (98-107) Carbon Dioxide Level 30 MMOL/L (21-32) 29 MMOL/L (21-32) 29 MMOL/L (21-32) Anion Gap -1 mmol/L (5-15) 8 mmol/L (5-15) 7 mmol/L (5-15) Blood Urea Nitrogen 11 mg/dL (7-18) 13 mg/dL (7-18) 15 mg/dL (7-18) Creatinine 0.8 MG/DL (0.55-1.30) 0.7 MG/DL (0.55-1.30) 0.8 MG/DL (0.55-1.30) Estimat Glomerular Filtration Rate > 60 mL/min (>60) > 60 mL/min (>60) > 60 mL/min (>60) Glucose Level 517 MG/DL (74-106) 136 MG/DL (74-106) 114 MG/DL (74-106) Hemoglobin A1c 7.2 % (4.3-6.0) Uric Acid 2.8 MG/DL (2.6-7.2) Calcium Level 8.0 MG/DL (8.5-10.1) 8.2 MG/DL (8.5-10.1) 9.2 MG/DL (8.5-10.1) Phosphorus Level 2.8 MG/DL (2.5-4.9) Magnesium Level 1.9 MG/DL (1.8-2.4) Ferritin 818 NG/ML (8-388) Total Bilirubin 0.5 MG/DL (0.2-1.0) 0.5 MG/DL (0.2-1.0) Gamma Glutamyl Transpeptidase 262 U/L (5-85) Aspartate Amino Transf (AST/SGOT) 125 U/L (15-37) 144 U/L (15-37) Alanine Aminotransferase (ALT/SGPT) 79 U/L (12-78) 103 U/L (12-78) Alkaline Phosphatase 100 U/L (46-116) 105 U/L (46-116) Lactate Dehydrogenase 255 U/L (81-234) Total Creatine Kinase 33 U/L (26-308) Troponin I 0.097 ng/mL (0.000-0.056) C-Reactive Protein, Quantitative 4.1 mg/dL (0.00-0.90) Pro-B-Type Natriuretic Peptide 1999 pg/mL (0-125) Total Protein 7.1 G/DL (6.4-8.2) 7.6 G/DL (6.4-8.2) Albumin 1.9 G/DL (3.4-5.0) 2.0 G/DL (3.4-5.0) Globulin 5.2 g/dL 5.6 g/dL Albumin/Globulin Ratio 0.4 (1.0-2.7) 0.4 (1.0-2.7) Triglycerides Level 87 MG/DL (30-150) Cholesterol Level 84 MG/DL (< 200) LDL Cholesterol 48 mg/dL (<100) HDL Cholesterol 26 MG/DL (40-60) Cholesterol/HDL Ratio 3.2 (3.3-4.4) Vitamin B12 Level 632 PG/ML (193-986) Folate 13.0 NG/ML (8.6-58.9) Thyroid Stimulating Hormone (TSH) 0.292 uiU/mL (0.358-3.740) Urine Color Brown Urine Appearance Clear Urine pH 8 (4.5-8.0) Urine Specific Ramona 1.015 (1.005-1.035) Urine Protein 1+ (NEGATIVE) Urine Glucose (UA) Negative (NEGATIVE) Urine Ketones Negative (NEGATIVE) Urine Blood Negative (NEGATIVE) Urine Nitrite Negative (NEGATIVE) Urine Bilirubin Negative (NEGATIVE) Urine Urobilinogen 8 MG/DL (0.0-1.0) Urine Leukocyte Esterase Negative (NEGATIVE) Urine RBC 0-2 /HPF (0 - 0) Urine WBC 0-2 /HPF (0 - 0) Urine Squamous Epithelial Cells None /LPF (NONE/OCC) Urine Amorphous Sediment Few /LPF (NONE) Urine Bacteria Few /HPF (NONE) Height (Feet): 5 Height (Inches): 2.00 Weight (Pounds): 130 Objective Physical Exam General: Awake and somewhat confused, no acute distress HEENT: NC/AT. EOMI. Cardiovascular: RRR. S1 and S2 normal. No murmur appreciated Resp: Mild tachypnea, normal work of breathing. On 2 L nasal cannula. Abdomen: Abdomen is soft, nondistended. Nontender Skin: Intact. No abrasions, laceration MSK: Normal tone and bulk. Moving all extremities Neuro: Awake and somewhat confused. Poor historian Geraldo Galvez MD Jun 24, 2019 06:10
--- NOTE | 2019-06-24 07:15 | NUR ---
HAND-OFF: Report given to MANOLO Larson. Pt is resting in bed with HOB elevated to high fowlers, with nasal cannula on 2 L. Iv intact. NG tube intact at left nare feeding patent. bilateral soft wrist restraints on with 2 finger lengths gap. Bed locked in lowest position bed alarm longitudinal float operator light within reach. Endorsed plan of care.
[2019-06-24 08:00] VITALS: BP 119/72
[2019-06-24 08:54] LABS: HEMOGLOBIN 14.6 G/DL (14.2-18.0); MEAN CORPUSCULAR VOLUME 89 FL (80-99); PLATELET COUNT 432 K/UL (150-450); RED BLOOD COUNT 4.83 M/UL (4.70-6.10); RED CELL DISTRIBUTION WIDTH 12.5 % (11.6-14.8); WHITE BLOOD COUNT 10.2 K/UL (4.8-10.8)
[2019-06-24] MEDS: Enoxaparin 40mg Inj SUBQ SCH (09:00)
[2019-06-24] MEDS: Aspirin Baby 81mg ORAL SCH (09:00)
[2019-06-24] MEDS: Donepezil 5mg Tab ORAL SCH (09:00)
[2019-06-24] MEDS: Metoprolol Succinate XL 25mg tab ORAL SCH (09:00)
[2019-06-24] MEDS: Docusate 100mg cap ORAL SCH (09:00)
[2019-06-24] MEDS: Memantine 10mg tab ORAL SCH ×2 (09:00→18:00)
[2019-06-24 09:22] LABS: ALANINE AMINOTRANSFERASE 103 U/L (12-78); ALBUMIN 2.2 G/DL (3.4-5.0); ALBUMIN/GLOBULIN RATIO 0.4 (1.0-2.7); ALKALINE PHOSPHATASE 144 U/L (46-116); ANION GAP 6 mmol/L (5-15); ASPARTATE AMINO TRANSFERASE 117 U/L (15-37); BILIRUBIN,TOTAL 0.5 MG/DL (0.2-1.0); BLOOD UREA NITROGEN 15 mg/dL (7-18); CALCIUM 8.5 MG/DL (8.5-10.1); CARBON DIOXIDE 28 MMOL/L (21-32); CHLORIDE 101 MMOL/L (98-107); CREATININE 0.7 MG/DL (0.55-1.30); PHOSPHORUS 2.4 MG/DL (2.5-4.9); SODIUM 135 MMOL/L (136-145)
[2019-06-24] MEDS ORDERED: Sodium Phosphate 15 MM in NS 275 ML IVPB ONE (11:00)
--- NOTE | 2019-06-24 11:16 | NUR ---
RD ASSESSMENT & RECOMMENDATIONS SEE CARE ACTIVITY FOR COMPLETE ASSESSMENT DAILY ESTIMATED NEEDS: Needs based on Cardiac, pulmonary 61.2kg 25-30 kcals/kg 6600-1218 total kcals 1-1.5 g protein/kg 61-92 g total protein Fluid per MD, on lasix NUTRITION DIAGNOSIS: Swallowing and chewing difficulty r/t dysphagia as evidenced by pt on liquify puree texture diet w/ NTL, variable PO intake and 1:1 feeds, now on NGT feeds + oral grat. CURRENT TF: Glucerna 1.5@43ml/hr + Oral grat ENTERAL NUTRITION RECOMMENDATIONS: Glucerna 1.5 @43ml/hr x24 hrs to provide 1032ml, 1548 kcal, 85g pro, 783ml free H2O - Obtain GI access, initiate Glucerna 1.5 @23ml/hr for 6 hrs. Advance as tolerated 10ml/hr q4-6 hrs to goal. - Flush per MD, HOB over 30 degrees. ADDITIONAL RECOMMENDATIONS: 1) Obtain a calibrated bed scale wt and UPDATED EMR, Updated wt of 59.165kg is more c/w initial wt 2) Monitor lytes, need for renal TF 3) TF recs as above 4) Initiate TF at low rate, pt at risk for refeeding 5) rec NISS w/ TF's for glycemic control
--- NOTE | 2019-06-24 11:34 | Infectious Diseases Prog Note ---
Assessment/Plan Assessment/Plan IMPRESSION: COIVD19 Pneumonia, Cholelithiasis and elevated transaminase level, acidosis, dementia with behavioral problem. Dysphagia RECOMMENDATION: We will repeat COVID19 tests. Subjective ROS Limited/Unobtainable: Yes Constitutional: Denies: fever Neurologic: Reports: confusion, other - on restraint Allergies: Coded Allergies: No Known Allergies (Unverified , 06/15/19) Objective Vital Signs Last 24 Hour Vital Signs Date Time Temp Pulse Resp B/P (MAP) Pulse Ox O2 Delivery O2 Flow Rate FiO2 06/24/19 04:00 98.4 86 21 141/89 (106) 96 06/24/19 04:00 2.0 06/24/19 04:00 86 06/24/19 00:00 97.9 78 20 138/90 (106) 96 06/24/19 00:00 78 06/23/19 21:00 Nasal Cannula 2.0 06/23/19 20:00 97.5 63 21 149/94 (112) 96 06/23/19 20:00 2.0 06/23/19 20:00 63 06/23/19 16:00 97.4 68 22 135/95 (108) 96 06/23/19 16:00 72 06/23/19 16:00 2.0 06/23/19 13:38 63 141/81 06/23/19 12:00 55 06/23/19 12:00 2.0 06/23/19 12:00 97.3 63 20 141/81 (101) 100 Height (Feet): 5 Height (Inches): 2.00 Weight (Pounds): 130 General Appearance: no acute distress HEENT: mucous membranes moist Respiratory/Chest: lungs clear Cardiovascular: normal rate Abdomen: soft, non tender, other - Ng tube feeding Extremities: no edema Neurologic/Psychiatric: disoriented Microbiology Date/Time Source Procedure Growth Status 06/21/19 15:24 Nasopharynx Coronavirus COVID-19 PCR ([facility]A) - Final Complete Laboratory Tests Test 06/24/19 08:30 White Blood Count 10.2 K/UL (4.8-10.8) # Red Blood Count 4.83 M/UL (4.70-6.10) Hemoglobin 14.6 G/DL (14.2-18.0) Hematocrit 43.0 % (42.0-52.0) Mean Corpuscular Volume 89 FL (80-99) Mean Corpuscular Hemoglobin 30.1 PG (27.0-31.0) Mean Corpuscular Hemoglobin Concent 33.9 G/DL (32.0-36.0) Red Cell Distribution Width 12.5 % (11.6-14.8) Platelet Count 432 K/UL (150-450) Mean Platelet Volume 5.5 FL (6.5-10.1) L Neutrophils (%) (Auto) % (45.0-75.0) Lymphocytes (%) (Auto) % (20.0-45.0) Monocytes (%) (Auto) % (1.0-10.0) Eosinophils (%) (Auto) % (0.0-3.0) Basophils (%) (Auto) % (0.0-2.0) Differential Total Cells Counted 100 Neutrophils % (Manual) 87 % (45-75) H Lymphocytes % (Manual) 10 % (20-45) L Monocytes % (Manual) 3 % (1-10) Eosinophils % (Manual) 0 % (0-3) Basophils % (Manual) 0 % (0-2) Band Neutrophils 0 % (0-8) Platelet Estimate Adequate Platelet Morphology Normal Red Blood Cell Morphology Normal Sodium Level 135 MMOL/L (136-145) L Potassium Level 4.0 MMOL/L (3.5-5.1) Chloride Level 101 MMOL/L (98-107) Carbon Dioxide Level 28 MMOL/L (21-32) Anion Gap 6 mmol/L (5-15) Blood Urea Nitrogen 15 mg/dL (7-18) Creatinine 0.7 MG/DL (0.55-1.30) Estimat Glomerular Filtration Rate > 60 mL/min (>60) Glucose Level 168 MG/DL (74-106) H Calcium Level 8.5 MG/DL (8.5-10.1) Phosphorus Level 2.4 MG/DL (2.5-4.9) L Total Bilirubin 0.5 MG/DL (0.2-1.0) Aspartate Amino Transf (AST/SGOT) 117 U/L (15-37) H Alanine Aminotransferase (ALT/SGPT) 103 U/L (12-78) H Alkaline Phosphatase 144 U/L (46-116) H Total Protein 7.8 G/DL (6.4-8.2) Albumin 2.2 G/DL (3.4-5.0) L Globulin 5.6 g/dL Albumin/Globulin Ratio 0.4 (1.0-2.7) L Current Medications Medications (Trade) Dose Ordered Sig/Kaylan Route PRN Reason Start Time Stop Time Status Last Admin Dose Admin Acetaminophen (Tylenol) 500 mg Q6H PRN ORAL For Pain 06/16/19 00:15 07/16/19 00:14 Acetaminophen (Tylenol) 650 mg Q6H PRN ORAL For Headache 06/16/19 03:00 07/16/19 02:59 Albuterol Sulfate (Proventil MDI) 2 puff Q6H PRN INH Shortness of Breath 06/16/19 03:00 09/14/19 02:59 Amlodipine Besylate (Norvasc) 5 mg DAILY NG 06/23/19 12:00 07/23/19 11:59 06/23/19 13:38 Aspirin (ASA) 81 mg DAILY ORAL 06/16/19 09:00 07/31/19 08:59 06/23/19 10:02 Docusate Sodium (Colace) 100 mg DAILY ORAL 06/16/19 09:00 07/16/19 08:59 06/23/19 10:00 Donepezil HCl (Aricept) 5 mg DAILY ORAL 06/16/19 09:00 07/16/19 08:59 06/23/19 10:01 Enoxaparin Sodium (Lovenox) 40 mg DAILY SUBQ 06/16/19 09:00 09/14/19 08:59 06/23/19 10:02 Hydralazine HCl (Apresoline) 25 mg Q4H PRN ORAL For blood pressure over 160 sy 06/22/19 13:30 09/20/19 13:29 Memantine (Namenda) 10 mg TWICE A DAY ORAL 06/16/19 09:00 07/16/19 08:59 06/23/19 16:58 Metoprolol Succinate (Toprol XL) 25 mg DAILY ORAL 06/19/19 19:15 09/17/19 19:14 06/23/19 10:01 Mirtazapine (Remeron) 15 mg BEDTIME ORAL 06/21/19 21:00 7/20/20 20:59 06/23/19 21:00 Ondansetron HCl (Zofran) 4 mg Q6H PRN IVP Nausea & Vomiting 06/16/19 03:00 07/16/19 02:59 Polyethylene Glycol (Miralax) 17 gm BEDTIME ORAL 06/17/19 21:00 07/17/19 20:59 06/23/19 21:00 Sodium Phosphate 15 mm/Sodium Chloride 280 ml @ 70.273 mls/ hr ONCE ONCE IVPB 06/24/19 11:00 06/24/19 14:59 Benigno Betancourt MD Jun 24, 2019 11:34
--- NOTE | 2019-06-24 11:45 | Nephrology Progress Note ---
Assessment/Plan Problem List: (1) Dehydration (2) Electrolyte imbalance (3) Elevated LFTs (4) HTN (hypertension) Assessment Electrolyte imbalance Dehydration and free water deficit Pneumonia suspected COVID-19 infection Elevated troponin Dementia Cholelithiasis and elevated liver enzymes BPH Hypertension Plan DC IV fluid and PO KCL Add Norvasc Hydralazine as needed for blood pressure over 160 systolic Monitor electrolyte Continue per consultants Urine analysis ordered as none is available since admission Per orders Subjective ROS Limited/Unobtainable: No Constitutional: Reports: malaise, weakness Objective Objective Last 24 Hour Vital Signs Date Time Temp Pulse Resp B/P (MAP) Pulse Ox O2 Delivery O2 Flow Rate FiO2 06/24/19 09:00 86 141/89 06/24/19 09:00 86 141/89 06/24/19 04:00 98.4 86 21 141/89 (106) 96 06/24/19 04:00 2.0 06/24/19 04:00 86 06/24/19 00:00 97.9 78 20 138/90 (106) 96 06/24/19 00:00 78 06/23/19 21:00 Nasal Cannula 2.0 06/23/19 20:00 97.5 63 21 149/94 (112) 96 06/23/19 20:00 2.0 06/23/19 20:00 63 06/23/19 16:00 97.4 68 22 135/95 (108) 96 06/23/19 16:00 72 06/23/19 16:00 2.0 06/23/19 13:38 63 141/81 06/23/19 12:00 55 06/23/19 12:00 2.0 06/23/19 12:00 97.3 63 20 141/81 (101) 100 Intake and Output 06/23/19 06/24/19 19:00 07:00 # Voids 1 1 # Bowel Movements 1 Laboratory Tests 06/24/19 08:30: White Blood Count 10.2#, Red Blood Count 4.83, Hemoglobin 14.6, Hematocrit 43.0 , Mean Corpuscular Volume 89, Mean Corpuscular Hemoglobin 30.1, Mean Corpuscular Hemoglobin Concent 33.9, Red Cell Distribution Width 12.5, Platelet Count 432, Mean Platelet Volume 5.5L, Neutrophils (%) (Auto) , Lymphocytes (%) ( Auto) , Monocytes (%) (Auto) , Eosinophils (%) (Auto) , Basophils (%) (Auto) , Differential Total Cells Counted 100, Neutrophils % (Manual) 87H, Lymphocytes % (Manual) 10L, Monocytes % (Manual) 3, Eosinophils % (Manual) 0, Basophils % ( Manual) 0, Band Neutrophils 0, Platelet Estimate Adequate, Platelet Morphology Normal, Red Blood Cell Morphology Normal, Sodium Level 135L, Potassium Level 4.0 , Chloride Level 101, Carbon Dioxide Level 28, Anion Gap 6, Blood Urea Nitrogen 15, Creatinine 0.7, Estimat Glomerular Filtration Rate > 60, Glucose Level 168H , Calcium Level 8.5, Phosphorus Level 2.4L, Total Bilirubin 0.5, Aspartate Amino Transf (AST/SGOT) 117H, Alanine Aminotransferase (ALT/SGPT) 103H, Alkaline Phosphatase 144H, Total Protein 7.8, Albumin 2.2L, Globulin 5.6, Albumin/Globulin Ratio 0.4L Height (Feet): 5 Height (Inches): 2.00 Weight (Pounds): 130 General Appearance: no apparent distress EENT: other - Has NG tube Cardiovascular: tachycardia Respiratory/Chest: decreased breath sounds Abdomen: soft Drew Gonzalez MD Jun 24, 2019 11:45
[2019-06-24 12:00] VITALS: BP 105/61
--- NOTE | 2019-06-24 13:22 | General Progress Note ---
Assessment/Plan Status: progressing Assessment/Plan: 1. History of dementia. 2. CHF. 3. Hypertension. 4. BPH. 5. Constipation. 6. elevated LFTS 7. AMI 8. gallstones improving LFTS hep C positive>>> will send HCV RNA and patient needs out patient fu for treatment fu cardiology repeat labs in am ngt in place ngTF Subjective ROS Limited/Unobtainable: No Allergies: Coded Allergies: No Known Allergies (Unverified , 06/15/19) Objective Last 24 Hour Vital Signs Date Time Temp Pulse Resp B/P (MAP) Pulse Ox O2 Delivery O2 Flow Rate FiO2 06/24/19 09:00 86 141/89 06/24/19 09:00 86 141/89 06/24/19 04:00 98.4 86 21 141/89 (106) 96 06/24/19 04:00 2.0 06/24/19 04:00 86 06/24/19 00:00 97.9 78 20 138/90 (106) 96 06/24/19 00:00 78 06/23/19 21:00 Nasal Cannula 2.0 06/23/19 20:00 97.5 63 21 149/94 (112) 96 06/23/19 20:00 2.0 06/23/19 20:00 63 06/23/19 16:00 97.4 68 22 135/95 (108) 96 06/23/19 16:00 72 06/23/19 16:00 2.0 06/23/19 13:38 63 141/81 Intake and Output 06/23/19 06/24/19 19:00 07:00 # Voids 1 1 # Bowel Movements 1 Laboratory Tests 06/24/19 08:30: White Blood Count 10.2#, Red Blood Count 4.83, Hemoglobin 14.6, Hematocrit 43.0 , Mean Corpuscular Volume 89, Mean Corpuscular Hemoglobin 30.1, Mean Corpuscular Hemoglobin Concent 33.9, Red Cell Distribution Width 12.5, Platelet Count 432, Mean Platelet Volume 5.5L, Neutrophils (%) (Auto) , Lymphocytes (%) ( Auto) , Monocytes (%) (Auto) , Eosinophils (%) (Auto) , Basophils (%) (Auto) , Differential Total Cells Counted 100, Neutrophils % (Manual) 87H, Lymphocytes % (Manual) 10L, Monocytes % (Manual) 3, Eosinophils % (Manual) 0, Basophils % ( Manual) 0, Band Neutrophils 0, Platelet Estimate Adequate, Platelet Morphology Normal, Red Blood Cell Morphology Normal, Sodium Level 135L, Potassium Level 4.0 , Chloride Level 101, Carbon Dioxide Level 28, Anion Gap 6, Blood Urea Nitrogen 15, Creatinine 0.7, Estimat Glomerular Filtration Rate > 60, Glucose Level 168H , Calcium Level 8.5, Phosphorus Level 2.4L, Total Bilirubin 0.5, Aspartate Amino Transf (AST/SGOT) 117H, Alanine Aminotransferase (ALT/SGPT) 103H, Alkaline Phosphatase 144H, Total Protein 7.8, Albumin 2.2L, Globulin 5.6, Albumin/Globulin Ratio 0.4L Height (Feet): 5 Height (Inches): 2.00 Weight (Pounds): 130 General Appearance: no apparent distress EENT: PERRL/EOMI Neck: supple Cardiovascular: normal rate Respiratory/Chest: decreased breath sounds Abdomen: normal bowel sounds, non tender, soft Extremities: non-tender Perry Quiroga MD Jun 24, 2019 13:22
[2019-06-24 16:00] VITALS: BP 131/78
--- NOTE | 2019-06-24 16:40 | NUR ---
CASE MANAGEMENT:REVIEW 06/24/19 SI: COVID 19 PNEUMONIA 98.4 86 21 141/89 96% ON 2L/NC AST/ALT+117/103 IS: NORVASC PO QD REMERON PO QHS TOPRIOL XL PO QD LOVENOX SQ QD ASA PO QD ARICEPT PO QD NAMENDA PO BID : TELEMETRY STATUS DCP: FROM [facility]
[2019-06-24 20:00] VITALS: BP 153/83
[2019-06-24] MEDS: Miralax 17gm pkt ORAL SCH (20:51)
--- NOTE | 2019-06-24 21:11 | General Progress Note ---
Assessment/Plan Problem List: (1) Elevated troponin ICD Codes: R79.89 - Other specified abnormal findings of blood chemistry SNOMED: 062337579, 996886423, 903460294 (2) Elevated LFTs ICD Codes: R79.89 - Other specified abnormal findings of blood chemistry SNOMED: 096734570, 694409942, 777512761 (3) Pneumonia ICD Codes: J18.9 - Pneumonia, unspecified organism SNOMED: 886357694, 257724669, 352194053 (4) Suspected 2019 novel coronavirus infection ICD Codes: R68.89 - Other general symptoms and signs SNOMED: 285360908 Status: progressing Assessment/Plan: covid positive pna resp insuff afebrile reviewed chart no acute events mildly elevated lft.improved Subjective ROS Limited/Unobtainable: Yes Allergies: Coded Allergies: No Known Allergies (Unverified , 06/15/19) Objective Last 24 Hour Vital Signs Date Time Temp Pulse Resp B/P (MAP) Pulse Ox O2 Delivery O2 Flow Rate FiO2 06/24/19 16:00 98.8 80 17 131/78 (95) 95 06/24/19 16:00 80 06/24/19 12:00 79 06/24/19 12:00 98.9 79 17 105/61 (76) 93 06/24/19 09:00 Nasal Cannula 2.0 06/24/19 09:00 86 141/89 06/24/19 09:00 86 141/89 06/24/19 08:00 98.2 84 20 119/72 (88) 94 06/24/19 08:00 84 06/24/19 04:00 98.4 86 21 141/89 (106) 96 06/24/19 04:00 2.0 06/24/19 04:00 86 06/24/19 00:00 97.9 78 20 138/90 (106) 96 06/24/19 00:00 78 Intake and Output 06/23/19 06/24/19 19:00 07:00 # Voids 1 1 # Bowel Movements 1 Laboratory Tests 06/24/19 08:30: White Blood Count 10.2#, Red Blood Count 4.83, Hemoglobin 14.6, Hematocrit 43.0 , Mean Corpuscular Volume 89, Mean Corpuscular Hemoglobin 30.1, Mean Corpuscular Hemoglobin Concent 33.9, Red Cell Distribution Width 12.5, Platelet Count 432, Mean Platelet Volume 5.5L, Neutrophils (%) (Auto) , Lymphocytes (%) ( Auto) , Monocytes (%) (Auto) , Eosinophils (%) (Auto) , Basophils (%) (Auto) , Differential Total Cells Counted 100, Neutrophils % (Manual) 87H, Lymphocytes % (Manual) 10L, Monocytes % (Manual) 3, Eosinophils % (Manual) 0, Basophils % ( Manual) 0, Band Neutrophils 0, Platelet Estimate Adequate, Platelet Morphology Normal, Red Blood Cell Morphology Normal, Sodium Level 135L, Potassium Level 4.0 , Chloride Level 101, Carbon Dioxide Level 28, Anion Gap 6, Blood Urea Nitrogen 15, Creatinine 0.7, Estimat Glomerular Filtration Rate > 60, Glucose Level 168H , Calcium Level 8.5, Phosphorus Level 2.4L, Total Bilirubin 0.5, Aspartate Amino Transf (AST/SGOT) 117H, Alanine Aminotransferase (ALT/SGPT) 103H, Alkaline Phosphatase 144H, Total Protein 7.8, Albumin 2.2L, Globulin 5.6, Albumin/Globulin Ratio 0.4L Height (Feet): 5 Height (Inches): 2.00 Weight (Pounds): 130 Gorge Malhotra MD Jun 24, 2019 21:11
[2019-06-25] VITALS: BP 137/78
--- NOTE | 2019-06-25 02:09 | Pulmonology Progress Note ---
Assessment/Plan Assessment/Plan Pulmonary Progress Note HPI: Patient is a 88-year-old male history of Dementia, Congestive Heart Failure , admitted from [facility] with Pneumonia, COVID 19 positive, noted to have fever and shortness of breath, chest congestion and tightness for 2 days. Noted to be confused in the ED. Has been febrile with low-grade temperatures for the past 2 days. No vomiting or diarrhea or abdominal pain. Stable O2 requirements - 2L NC, stable Pulmonary Status Seen on 06/24/2019 PMH: Dementia, Congestive Heart Failure Social Hx: Senior Care Resident FHx: NC Allergies: No Known Allergies All Other Systems: limited - AMS Physical Exam Vital signs noted General: Awake and somewhat confused, no acute distress HEENT: NC/AT. EOMI. Cardiovascular: RRR. S1 and S2 normal. No murmur appreciated Resp: Mild tachypnea, normal work of breathing. On 2 L nasal cannula. No cough Abdomen: Abdomen is soft, nondistended. Nontender Skin: Intact. No abrasions, laceration or rash noted MSK: Normal tone and bulk. Moving all extremities. No obvious deformity. Neuro: Awake and somewhat confused. Poor historian. No focal signs Impression: Pneumonia Suspected 2019 novel coronavirus infection Elevated troponin Elevated LFTs Lymphopenia Dementia Congestive Heart Failure Senior Care Resident Plan Antibiotics/antivirals per ID O2 PRN Albuterol MDI PRN PPX - Lovenox ASA Monitor labs - hypokalemia - s/p supplementation Monitor cultures/viral studies Ultrasound of the abdomen pending. Isolation for suspected COVID-19 infection Laboratory Tests noted EKG Rate: normal Rhythm: NSR ST Segments: no acute changes Sinus rhythm, left axis deviation. Occasional PACs. T wave inversions, no ST segment changes Chest X-Ray: Consolidations in the left lower lobe may represent an early pneumonia. No effusion. Current CXR stable infiltrates . Subjective ROS Limited/Unobtainable: No Constitutional: Denies: fever Respiratory: Reports: shortness of breath Allergies: Coded Allergies: No Known Allergies (Unverified , 06/15/19) Objective Last 24 Hour Vital Signs Date Time Temp Pulse Resp B/P (MAP) Pulse Ox O2 Delivery O2 Flow Rate FiO2 06/25/19 00:00 98.9 79 21 137/78 (97) 95 06/24/19 21:00 Nasal Cannula 2.0 06/24/19 20:00 98.8 92 20 153/83 (106) 98 06/24/19 16:00 98.8 80 17 131/78 (95) 95 06/24/19 16:00 80 06/24/19 12:00 79 06/24/19 12:00 98.9 79 17 105/61 (76) 93 06/24/19 09:00 Nasal Cannula 2.0 06/24/19 09:00 86 141/89 06/24/19 09:00 86 141/89 06/24/19 08:00 98.2 84 20 119/72 (88) 94 06/24/19 08:00 84 06/24/19 04:00 98.4 86 21 141/89 (106) 96 06/24/19 04:00 2.0 06/24/19 04:00 86 Intake and Output 06/24/19 06/25/19 18:59 06:59 # Bowel Movements 1 1 General Appearance: no acute distress HEENT: mucous membranes moist Abdomen: soft, non tender, other - Ng tube feeding Extremities: no edema Neurologic/Psychiatric: disoriented Laboratory Tests 06/24/19 08:30: White Blood Count 10.2#, Red Blood Count 4.83, Hemoglobin 14.6, Hematocrit 43.0 , Mean Corpuscular Volume 89, Mean Corpuscular Hemoglobin 30.1, Mean Corpuscular Hemoglobin Concent 33.9, Red Cell Distribution Width 12.5, Platelet Count 432, Mean Platelet Volume 5.5L, Neutrophils (%) (Auto) , Lymphocytes (%) ( Auto) , Monocytes (%) (Auto) , Eosinophils (%) (Auto) , Basophils (%) (Auto) , Differential Total Cells Counted 100, Neutrophils % (Manual) 87H, Lymphocytes % (Manual) 10L, Monocytes % (Manual) 3, Eosinophils % (Manual) 0, Basophils % ( Manual) 0, Band Neutrophils 0, Platelet Estimate Adequate, Platelet Morphology Normal, Red Blood Cell Morphology Normal, Sodium Level 135L, Potassium Level 4.0 , Chloride Level 101, Carbon Dioxide Level 28, Anion Gap 6, Blood Urea Nitrogen 15, Creatinine 0.7, Estimat Glomerular Filtration Rate > 60, Glucose Level 168H , Calcium Level 8.5, Phosphorus Level 2.4L, Total Bilirubin 0.5, Aspartate Amino Transf (AST/SGOT) 117H, Alanine Aminotransferase (ALT/SGPT) 103H, Alkaline Phosphatase 144H, Total Protein 7.8, Albumin 2.2L, Globulin 5.6, Albumin/Globulin Ratio 0.4L Current Medications Medications (Trade) Dose Ordered Sig/Kaylan Route PRN Reason Start Time Stop Time Status Last Admin Dose Admin Acetaminophen (Tylenol) 500 mg Q6H PRN ORAL For Pain 06/16/19 00:15 07/16/19 00:14 Acetaminophen (Tylenol) 650 mg Q6H PRN ORAL For Headache 06/16/19 03:00 07/16/19 02:59 Albuterol Sulfate (Proventil MDI) 2 puff Q6H PRN INH Shortness of Breath 06/16/19 03:00 09/14/19 02:59 Amlodipine Besylate (Norvasc) 5 mg DAILY NG 06/23/19 12:00 07/23/19 11:59 06/24/19 09:00 Aspirin (ASA) 81 mg DAILY ORAL 06/16/19 09:00 07/31/19 08:59 06/24/19 09:00 Docusate Sodium (Colace) 100 mg DAILY ORAL 06/16/19 09:00 07/16/19 08:59 06/24/19 09:00 Donepezil HCl (Aricept) 5 mg DAILY ORAL 06/16/19 09:00 07/16/19 08:59 06/24/19 09:00 Enoxaparin Sodium (Lovenox) 40 mg DAILY SUBQ 06/16/19 09:00 09/14/19 08:59 06/24/19 09:00 Hydralazine HCl (Apresoline) 25 mg Q4H PRN ORAL For blood pressure over 160 sy 06/22/19 13:30 09/20/19 13:29 Memantine (Namenda) 10 mg TWICE A DAY ORAL 06/16/19 09:00 07/16/19 08:59 06/24/19 18:00 Metoprolol Succinate (Toprol XL) 25 mg DAILY ORAL 06/19/19 19:15 09/17/19 19:14 06/24/19 09:00 Mirtazapine (Remeron) 15 mg BEDTIME ORAL 06/21/19 21:00 09/19/19 20:59 06/24/19 20:51 Ondansetron HCl (Zofran) 4 mg Q6H PRN IVP Nausea & Vomiting 06/16/19 03:00 07/16/19 02:59 Polyethylene Glycol (Miralax) 17 gm BEDTIME ORAL 06/17/19 21:00 07/17/19 20:59 06/24/19 20:51 Andrew Diaz MD Jun 25, 2019 02:09
[2019-06-25 04:00] VITALS: BP 120/69
--- NOTE | 2019-06-25 07:30 | NUR ---
NURSE NOTES: Received report from MANOLO Paredes. Patient in bed resting, no active s/s cardiac, respiratory distress noticed at this time. Patient AOx1, SR with 1st HB 66, on 2L NC. Patient on bilateral wrist restraints, cap refill <3 sec, able to move, NGT on left nares. IV on left FA 20G, asymptomatic, patent, intact. Bed in lowest position, side rails upx2, call light within reach, bed alarm on. Will continue to monitor.
--- NOTE | 2019-06-25 07:35 | NUR ---
HAND-OFF: Report given to MANOLO Monahan.
[2019-06-25 08:00] VITALS: BP 134/75
[2019-06-25 08:24] LABS: BASOPHILS % (AUTO) 0.3 % (0.0-2.0); EOSINOPHILS % (AUTO) 0.1 % (0.0-3.0); HEMATOCRIT 40.2 % (42.0-52.0); HEMOGLOBIN 13.5 G/DL (14.2-18.0); LYMPHOCYTES % (AUTO) 21.1 % (20.0-45.0); MEAN CORPUSCULAR VOLUME 91 FL (80-99); MONOCYTES % (AUTO) 5.2 % (1.0-10.0); NEUTROPHILS % (AUTO) 73.4 % (45.0-75.0); PLATELET COUNT 369 K/UL (150-450); RED BLOOD COUNT 4.43 M/UL (4.70-6.10); RED CELL DISTRIBUTION WIDTH 12.7 % (11.6-14.8); WHITE BLOOD COUNT 9.4 K/UL (4.8-10.8)
[2019-06-25 08:54] LABS: ALANINE AMINOTRANSFERASE 85 U/L (12-78); ALBUMIN 2.2 G/DL (3.4-5.0); ALBUMIN/GLOBULIN RATIO 0.5 (1.0-2.7); ALKALINE PHOSPHATASE 145 U/L (46-116); ANION GAP 4 mmol/L (5-15); ASPARTATE AMINO TRANSFERASE 83 U/L (15-37); BILIRUBIN,TOTAL 0.5 MG/DL (0.2-1.0); BLOOD UREA NITROGEN 16 mg/dL (7-18); CALCIUM 8.3 MG/DL (8.5-10.1); CARBON DIOXIDE 32 MMOL/L (21-32); CHLORIDE 104 MMOL/L (98-107); CREATININE 0.7 MG/DL (0.55-1.30); POTASSIUM 4.6 MMOL/L (3.5-5.1); SODIUM 140 MMOL/L (136-145)
[2019-06-25] MEDS: Aspirin Baby 81mg ORAL SCH (08:55)
[2019-06-25] MEDS: Docusate 100mg cap ORAL SCH (08:55)
[2019-06-25] MEDS: Donepezil 5mg Tab ORAL SCH (08:55)
[2019-06-25] MEDS: Memantine 10mg tab ORAL SCH ×2 (08:55→17:22)
[2019-06-25] MEDS: Metoprolol Succinate XL 25mg tab ORAL SCH (08:56)
[2019-06-25] MEDS: Enoxaparin 40mg Inj SUBQ SCH (08:57)
--- NOTE | 2019-06-25 10:32 | Nephrology Progress Note ---
Assessment/Plan Problem List: (1) Dehydration (2) Electrolyte imbalance (3) Elevated LFTs (4) HTN (hypertension) Assessment Electrolyte imbalance Dehydration and free water deficit Pneumonia suspected COVID-19 infection Elevated troponin Dementia Cholelithiasis and elevated liver enzymes BPH Hypertension Plan DC IV fluid and PO KCL Add Norvasc Hydralazine as needed for blood pressure over 160 systolic Monitor electrolyte Continue per consultants Urine analysis ordered as none is available since admission Per orders Subjective ROS Limited/Unobtainable: No Constitutional: Reports: malaise, weakness Objective Objective Last 24 Hour Vital Signs Date Time Temp Pulse Resp B/P (MAP) Pulse Ox O2 Delivery O2 Flow Rate FiO2 06/25/19 08:56 89 134/75 06/25/19 08:55 89 134/75 06/25/19 08:00 97.2 89 17 134/75 (94) 95 06/25/19 04:00 66 06/25/19 04:00 98.2 67 17 120/69 (86) 96 06/25/19 00:00 73 06/25/19 00:00 98.9 79 21 137/78 (97) 95 06/24/19 21:00 Nasal Cannula 2.0 06/24/19 20:00 76 06/24/19 20:00 98.8 92 20 153/83 (106) 98 06/24/19 16:00 98.8 80 17 131/78 (95) 95 06/24/19 16:00 80 06/24/19 12:00 79 06/24/19 12:00 98.9 79 17 105/61 (76) 93 Intake and Output 06/24/19 06/25/19 19:00 07:00 Intake Total 43 ml 553 ml Balance 43 ml 553 ml Free Water 80 ml Tube Feeding 43 ml 473 ml # Voids 1 # Bowel Movements 1 1 Laboratory Tests 06/25/19 06:20: White Blood Count 9.4, Red Blood Count 4.43L, Hemoglobin 13.5L, Hematocrit 40.2L , Mean Corpuscular Volume 91, Mean Corpuscular Hemoglobin 30.5, Mean Corpuscular Hemoglobin Concent 33.7, Red Cell Distribution Width 12.7, Platelet Count 369, Mean Platelet Volume 5.2L, Neutrophils (%) (Auto) 73.4, Lymphocytes ( %) (Auto) 21.1, Monocytes (%) (Auto) 5.2, Eosinophils (%) (Auto) 0.1, Basophils (%) (Auto) 0.3, Sodium Level 140, Potassium Level 4.6, Chloride Level 104, Carbon Dioxide Level 32, Anion Gap 4L, Blood Urea Nitrogen 16, Creatinine 0.7, Estimat Glomerular Filtration Rate > 60, Glucose Level 109H, Calcium Level 8.3L , Total Bilirubin 0.5, Aspartate Amino Transf (AST/SGOT) 83H, Alanine Aminotransferase (ALT/SGPT) 85H, Alkaline Phosphatase 145H, Total Protein 7.0, Albumin 2.2L, Globulin 4.8, Albumin/Globulin Ratio 0.5L Height (Feet): 5 Height (Inches): 2.00 Weight (Pounds): 130 General Appearance: no apparent distress EENT: other - Has NG tube Cardiovascular: tachycardia - Rate 89 Respiratory/Chest: decreased breath sounds Abdomen: soft Drew Gonzalez MD Jun 25, 2019 10:32
[2019-06-25 12:00] VITALS: BP 110/69
--- NOTE | 2019-06-25 13:06 | GI Progress Note ---
Assessment/Plan Problems: (1) Elevated LFTs ICD Codes: R79.89 - Other specified abnormal findings of blood chemistry SNOMED: 386138238, 693099823, 694542590 (2) Dehydration ICD Codes: E86.0 - Dehydration SNOMED: 85147144 (3) Suspected 2019 novel coronavirus infection ICD Codes: R68.89 - Other general symptoms and signs SNOMED: 223440181 (4) Pneumonia ICD Codes: J18.9 - Pneumonia, unspecified organism SNOMED: 549324301, 815556434, 422726896 (5) Electrolyte imbalance ICD Codes: E87.8 - Other disorders of electrolyte and fluid balance, not elsewhere classified SNOMED: 148058766 Status: unchanged Status Narrative Discussed with Dr. Quiroga. Assessment/Plan 1. History of dementia. 2. CHF. 3. Hypertension. 4. BPH. 5. Constipation. 6. elevated LFTS 7. AMI 8. gallstones ++ Covid-19 improving LFTS hep C positive>>> will send HCV RNA and patient needs out patient fu for treatment fu cardiology repeat labs in am ngt in place ngTF The patient was seen and examined at bedside and all new and available data was reviewed in the patients chart. I agree with the above findings, impression and plan. (Patient seen earlier today. Signature stamp does not reflect patient encounter time.). - Perry Quiroga MD Subjective Gastrointestinal/Abdominal: Reports: no symptoms Objective Last 24 Hour Vital Signs Date Time Temp Pulse Resp B/P (MAP) Pulse Ox O2 Delivery O2 Flow Rate FiO2 06/25/19 12:00 63 06/25/19 12:00 97.3 68 17 110/69 (83) 95 06/25/19 09:00 Nasal Cannula 2.0 06/25/19 08:56 89 134/75 06/25/19 08:55 89 134/75 06/25/19 08:00 97.2 89 17 134/75 (94) 95 06/25/19 08:00 68 06/25/19 04:00 66 06/25/19 04:00 98.2 67 17 120/69 (86) 96 06/25/19 00:00 73 06/25/19 00:00 98.9 79 21 137/78 (97) 95 06/24/19 21:00 Nasal Cannula 2.0 06/24/19 20:00 76 06/24/19 20:00 98.8 92 20 153/83 (106) 98 06/24/19 16:00 98.8 80 17 131/78 (95) 95 06/24/19 16:00 80 Intake and Output 06/24/19 06/25/19 19:00 07:00 Intake Total 43 ml 553 ml Balance 43 ml 553 ml Free Water 80 ml Tube Feeding 43 ml 473 ml # Voids 1 # Bowel Movements 1 1 Laboratory Tests Test 06/25/19 06:20 White Blood Count 9.4 K/UL (4.8-10.8) Red Blood Count 4.43 M/UL (4.70-6.10) L Hemoglobin 13.5 G/DL (14.2-18.0) L Hematocrit 40.2 % (42.0-52.0) L Mean Corpuscular Volume 91 FL (80-99) Mean Corpuscular Hemoglobin 30.5 PG (27.0-31.0) Mean Corpuscular Hemoglobin Concent 33.7 G/DL (32.0-36.0) Red Cell Distribution Width 12.7 % (11.6-14.8) Platelet Count 369 K/UL (150-450) Mean Platelet Volume 5.2 FL (6.5-10.1) L Neutrophils (%) (Auto) 73.4 % (45.0-75.0) Lymphocytes (%) (Auto) 21.1 % (20.0-45.0) Monocytes (%) (Auto) 5.2 % (1.0-10.0) Eosinophils (%) (Auto) 0.1 % (0.0-3.0) Basophils (%) (Auto) 0.3 % (0.0-2.0) Sodium Level 140 MMOL/L (136-145) Potassium Level 4.6 MMOL/L (3.5-5.1) Chloride Level 104 MMOL/L (98-107) Carbon Dioxide Level 32 MMOL/L (21-32) Anion Gap 4 mmol/L (5-15) L Blood Urea Nitrogen 16 mg/dL (7-18) Creatinine 0.7 MG/DL (0.55-1.30) Estimat Glomerular Filtration Rate > 60 mL/min (>60) Glucose Level 109 MG/DL (74-106) H Calcium Level 8.3 MG/DL (8.5-10.1) L Total Bilirubin 0.5 MG/DL (0.2-1.0) Aspartate Amino Transf (AST/SGOT) 83 U/L (15-37) H Alanine Aminotransferase (ALT/SGPT) 85 U/L (12-78) H Alkaline Phosphatase 145 U/L (46-116) H Total Protein 7.0 G/DL (6.4-8.2) Albumin 2.2 G/DL (3.4-5.0) L Globulin 4.8 g/dL Albumin/Globulin Ratio 0.5 (1.0-2.7) L Height (Feet): 5 Height (Inches): 2.00 Weight (Pounds): 130 General Appearance: WD/WN, no apparent distress, alert Cardiovascular: normal rate Respiratory/Chest: normal breath sounds, no respiratory distress Abdominal Exam: normal bowel sounds, non tender, soft Extremities: non-tender Rishi Patricio PACKAGING DESIGNER Jun 25, 2019 13:06
[2019-06-25 16:00] VITALS: BP 139/76
--- NOTE | 2019-06-25 19:33 | NUR ---
HAND-OFF: Report given to MANOLO Carmona. Endorsed plan of care.
--- NOTE | 2019-06-25 19:44 | NUR ---
NURSE NOTES: Received report from MANOLO Monahan. Patient is asleep lying semi-garcia's; resting comfortably. No signs of acute distress or pain noted at this time. AOx1; unable to make needs known. Checked IV site; patent and flushed. No erythema, bleeding, or infiltration noted. NG tube in place. Glucerna 1.5 running at 43 mls/hr. Bed at lowest position, brakes on, siderails up x3. Call light within reach. Will continue to monitor.
[2019-06-25 20:00] VITALS: BP 156/82
--- NOTE | 2019-06-25 20:00 | General Progress Note ---
Assessment/Plan Problem List: (1) Elevated troponin ICD Codes: R79.89 - Other specified abnormal findings of blood chemistry SNOMED: 012563085, 017367973, 949835092 (2) Elevated LFTs ICD Codes: R79.89 - Other specified abnormal findings of blood chemistry SNOMED: 501528537, 982668412, 432954669 (3) Pneumonia ICD Codes: J18.9 - Pneumonia, unspecified organism SNOMED: 500993381, 455126435, 488711394 (4) Suspected 2019 novel coronavirus infection ICD Codes: R68.89 - Other general symptoms and signs SNOMED: 674144639 Status: progressing, unchanged Assessment/Plan: covid positive pna resp insuff not hypoxic afebrile repeat covid no wheezing mildly elevated lft.improved Subjective ROS Limited/Unobtainable: Yes Allergies: Coded Allergies: No Known Allergies (Unverified , 06/15/19) Objective Last 24 Hour Vital Signs Date Time Temp Pulse Resp B/P (MAP) Pulse Ox O2 Delivery O2 Flow Rate FiO2 06/25/19 16:00 74 06/25/19 16:00 96.4 84 17 139/76 (97) 94 06/25/19 12:00 63 06/25/19 12:00 97.3 68 17 110/69 (83) 95 06/25/19 09:00 Nasal Cannula 2.0 06/25/19 08:56 89 134/75 06/25/19 08:55 89 134/75 06/25/19 08:00 97.2 89 17 134/75 (94) 95 06/25/19 08:00 68 06/25/19 04:00 66 06/25/19 04:00 98.2 67 17 120/69 (86) 96 06/25/19 00:00 73 06/25/19 00:00 98.9 79 21 137/78 (97) 95 06/24/19 21:00 Nasal Cannula 2.0 Intake and Output 06/24/19 06/25/19 19:00 07:00 Intake Total 43 ml 553 ml Balance 43 ml 553 ml Free Water 80 ml Tube Feeding 43 ml 473 ml # Voids 1 # Bowel Movements 1 1 Laboratory Tests 06/25/19 06:20: White Blood Count 9.4, Red Blood Count 4.43L, Hemoglobin 13.5L, Hematocrit 40.2L , Mean Corpuscular Volume 91, Mean Corpuscular Hemoglobin 30.5, Mean Corpuscular Hemoglobin Concent 33.7, Red Cell Distribution Width 12.7, Platelet Count 369, Mean Platelet Volume 5.2L, Neutrophils (%) (Auto) 73.4, Lymphocytes ( %) (Auto) 21.1, Monocytes (%) (Auto) 5.2, Eosinophils (%) (Auto) 0.1, Basophils (%) (Auto) 0.3, Sodium Level 140, Potassium Level 4.6, Chloride Level 104, Carbon Dioxide Level 32, Anion Gap 4L, Blood Urea Nitrogen 16, Creatinine 0.7, Estimat Glomerular Filtration Rate > 60, Glucose Level 109H, Calcium Level 8.3L , Total Bilirubin 0.5, Aspartate Amino Transf (AST/SGOT) 83H, Alanine Aminotransferase (ALT/SGPT) 85H, Alkaline Phosphatase 145H, Total Protein 7.0, Albumin 2.2L, Globulin 4.8, Albumin/Globulin Ratio 0.5L Height (Feet): 5 Height (Inches): 2.00 Weight (Pounds): 130 Respiratory/Chest: lungs clear Abdomen: soft Gorge Malhotra MD Jun 25, 2019 20:00
[2019-06-25] MEDS: Miralax 17gm pkt ORAL SCH (22:55)
--- NOTE | 2019-06-25 23:19 | Cardiology Progress Note ---
Assessment/Plan Assessment/Plan 1. Dyspnea due to possibly combination of COVID-19 pneumonia in addition to with acute congestive heart failure in face of elevated proBNP, continue lasix and metoprolol. ? LVEF, 2D echocardiography was rejected by the cardiology department due to COVID-19 infection. 2. Possible [id number]-yxrbpmepi myocardial infarction or elevated troponin I level could be secondary to myonecrosis that is seen in congestive heart failure. 3. HCV infection. Subjective Subjective Sinus rhythm at rate of 74. Objective Last 24 Hour Vital Signs Date Time Temp Pulse Resp B/P (MAP) Pulse Ox O2 Delivery O2 Flow Rate FiO2 06/25/19 16:00 74 06/25/19 16:00 96.4 84 17 139/76 (97) 94 06/25/19 12:00 63 06/25/19 12:00 97.3 68 17 110/69 (83) 95 06/25/19 09:00 Nasal Cannula 2.0 06/25/19 08:56 89 134/75 06/25/19 08:55 89 134/75 06/25/19 08:00 97.2 89 17 134/75 (94) 95 06/25/19 08:00 68 06/25/19 04:00 66 06/25/19 04:00 98.2 67 17 120/69 (86) 96 06/25/19 00:00 73 06/25/19 00:00 98.9 79 21 137/78 (97) 95 Intake and Output 06/24/19 06/25/19 19:00 07:00 Intake Total 43 ml 553 ml Balance 43 ml 553 ml Free Water 80 ml Tube Feeding 43 ml 473 ml # Voids 1 # Bowel Movements 1 1 Laboratory Tests Test 06/25/19 06:20 White Blood Count 9.4 K/UL (4.8-10.8) Red Blood Count 4.43 M/UL (4.70-6.10) L Hemoglobin 13.5 G/DL (14.2-18.0) L Hematocrit 40.2 % (42.0-52.0) L Mean Corpuscular Volume 91 FL (80-99) Mean Corpuscular Hemoglobin 30.5 PG (27.0-31.0) Mean Corpuscular Hemoglobin Concent 33.7 G/DL (32.0-36.0) Red Cell Distribution Width 12.7 % (11.6-14.8) Platelet Count 369 K/UL (150-450) Mean Platelet Volume 5.2 FL (6.5-10.1) L Neutrophils (%) (Auto) 73.4 % (45.0-75.0) Lymphocytes (%) (Auto) 21.1 % (20.0-45.0) Monocytes (%) (Auto) 5.2 % (1.0-10.0) Eosinophils (%) (Auto) 0.1 % (0.0-3.0) Basophils (%) (Auto) 0.3 % (0.0-2.0) Sodium Level 140 MMOL/L (136-145) Potassium Level 4.6 MMOL/L (3.5-5.1) Chloride Level 104 MMOL/L (98-107) Carbon Dioxide Level 32 MMOL/L (21-32) Anion Gap 4 mmol/L (5-15) L Blood Urea Nitrogen 16 mg/dL (7-18) Creatinine 0.7 MG/DL (0.55-1.30) Estimat Glomerular Filtration Rate > 60 mL/min (>60) Glucose Level 109 MG/DL (74-106) H Calcium Level 8.3 MG/DL (8.5-10.1) L Total Bilirubin 0.5 MG/DL (0.2-1.0) Aspartate Amino Transf (AST/SGOT) 83 U/L (15-37) H Alanine Aminotransferase (ALT/SGPT) 85 U/L (12-78) H Alkaline Phosphatase 145 U/L (46-116) H Total Protein 7.0 G/DL (6.4-8.2) Albumin 2.2 G/DL (3.4-5.0) L Globulin 4.8 g/dL Albumin/Globulin Ratio 0.5 (1.0-2.7) L Microbiology Date/Time Source Procedure Growth Status 06/23/19 15:00 Nasopharynx Coronavirus COVID-19 PCR ([facility]) - Final Complete Objective HEENT: Atraumatic and normocephalic. Anicteric. Pupils are equal, round, and reactive to light and accommodation. Extraocular muscles intact. NECK: JVP is less than 5 cm. No carotid bruit. Carotid upstroke is 2+ bilaterally. CARDIOVASCULAR: Normal S1 and S2. Regular rate and rhythm. No murmurs, gallops, or rubs. PMI is at fourth intercostal space at midclavicular line. LUNGS: Diminished breath sounds in both bases with associated crackles. ABDOMEN: Soft, nontender, and nondistended. No hepatosplenomegaly. Positive bowel sounds. EXTREMITIES: No evidence of edema, clubbing, or cyanosis. Rolf Moreno MD Jun 25, 2019 23:19
--- NOTE | 2019-06-25 23:44 | Pulmonology Progress Note ---
Assessment/Plan Assessment/Plan Pulmonary Progress Note HPI: Patient is a 88-year-old male history of Dementia, Congestive Heart Failure , admitted from [facility] facility with Pneumonia, COVID 19 positive, noted to have fever and shortness of breath, chest congestion and tightness for 2 days. Noted to be confused in the ED. Has been febrile with low-grade temperatures for the past 2 days. No vomiting or diarrhea or abdominal pain. Stable O2 requirements - 2L NC, stable Pulmonary Status PMH: Dementia, Congestive Heart Failure Social Hx: Fdc Resident FHx: NC Allergies: No Known Allergies All Other Systems: limited - AMS Physical Exam Vital signs noted General: Awake and somewhat confused, no acute distress HEENT: NC/AT. EOMI. Cardiovascular: RRR. S1 and S2 normal. No murmur appreciated Resp: Mild tachypnea, normal work of breathing. On 2 L nasal cannula. No cough Abdomen: Abdomen is soft, nondistended. Nontender Skin: Intact. No abrasions, laceration or rash noted MSK: Normal tone and bulk. Moving all extremities. No obvious deformity. Neuro: Awake and somewhat confused. Poor historian. No focal signs Impression: Pneumonia Suspected 2019 novel coronavirus infection Elevated troponin Elevated LFTs Lymphopenia Dementia Congestive Heart Failure Fdc Resident Plan Antibiotics/antivirals per ID O2 PRN Albuterol MDI PRN PPX - Lovenox ASA Monitor labs - hypokalemia - s/p supplementation Monitor cultures/viral studies Ultrasound of the abdomen pending. Isolation for suspected COVID-19 infection Laboratory Tests noted EKG Rate: normal Rhythm: NSR ST Segments: no acute changes Sinus rhythm, left axis deviation. Occasional PACs. T wave inversions, no ST segment changes Chest X-Ray: Consolidations in the left lower lobe may represent an early pneumonia. No effusion. Current CXR stable infiltrates . Subjective ROS Limited/Unobtainable: No Constitutional: Denies: fever Respiratory: Reports: shortness of breath Allergies: Coded Allergies: No Known Allergies (Unverified , 06/15/19) Objective Last 24 Hour Vital Signs Date Time Temp Pulse Resp B/P (MAP) Pulse Ox O2 Delivery O2 Flow Rate FiO2 06/25/19 20:00 72 06/25/19 16:00 74 06/25/19 16:00 96.4 84 17 139/76 (97) 94 06/25/19 12:00 63 06/25/19 12:00 97.3 68 17 110/69 (83) 95 06/25/19 09:00 Nasal Cannula 2.0 06/25/19 08:56 89 134/75 06/25/19 08:55 89 134/75 06/25/19 08:00 97.2 89 17 134/75 (94) 95 06/25/19 08:00 68 06/25/19 04:00 66 06/25/19 04:00 98.2 67 17 120/69 (86) 96 06/25/19 00:00 73 06/25/19 00:00 98.9 79 21 137/78 (97) 95 Intake and Output 06/24/19 06/25/19 19:00 07:00 Intake Total 43 ml 553 ml Balance 43 ml 553 ml Free Water 80 ml Tube Feeding 43 ml 473 ml # Voids 1 # Bowel Movements 1 1 General Appearance: no acute distress HEENT: mucous membranes moist Abdomen: soft, non tender, other - Ng tube feeding Extremities: no edema Neurologic/Psychiatric: disoriented Microbiology Date/Time Source Procedure Growth Status 06/23/19 15:00 Nasopharynx Coronavirus COVID-19 PCR ([facility]) - Final Complete Laboratory Tests 06/25/19 06:20: White Blood Count 9.4, Red Blood Count 4.43L, Hemoglobin 13.5L, Hematocrit 40.2L , Mean Corpuscular Volume 91, Mean Corpuscular Hemoglobin 30.5, Mean Corpuscular Hemoglobin Concent 33.7, Red Cell Distribution Width 12.7, Platelet Count 369, Mean Platelet Volume 5.2L, Neutrophils (%) (Auto) 73.4, Lymphocytes ( %) (Auto) 21.1, Monocytes (%) (Auto) 5.2, Eosinophils (%) (Auto) 0.1, Basophils (%) (Auto) 0.3, Sodium Level 140, Potassium Level 4.6, Chloride Level 104, Carbon Dioxide Level 32, Anion Gap 4L, Blood Urea Nitrogen 16, Creatinine 0.7, Estimat Glomerular Filtration Rate > 60, Glucose Level 109H, Calcium Level 8.3L , Total Bilirubin 0.5, Aspartate Amino Transf (AST/SGOT) 83H, Alanine Aminotransferase (ALT/SGPT) 85H, Alkaline Phosphatase 145H, Total Protein 7.0, Albumin 2.2L, Globulin 4.8, Albumin/Globulin Ratio 0.5L Current Medications Medications (Trade) Dose Ordered Sig/Kaylan Route PRN Reason Start Time Stop Time Status Last Admin Dose Admin Acetaminophen (Tylenol) 500 mg Q6H PRN ORAL For Pain 06/16/19 00:15 07/16/19 00:14 Acetaminophen (Tylenol) 650 mg Q6H PRN ORAL For Headache 06/16/19 03:00 07/16/19 02:59 Albuterol Sulfate (Proventil MDI) 2 puff Q6H PRN INH Shortness of Breath 06/16/19 03:00 09/14/19 02:59 Amlodipine Besylate (Norvasc) 5 mg DAILY NG 06/23/19 12:00 07/23/19 11:59 06/25/19 08:55 Aspirin (ASA) 81 mg DAILY ORAL 06/16/19 09:00 07/31/19 08:59 06/25/19 08:55 Docusate Sodium (Colace) 100 mg DAILY ORAL 06/16/19 09:00 07/16/19 08:59 06/25/19 08:55 Donepezil HCl (Aricept) 5 mg DAILY ORAL 06/16/19 09:00 07/16/19 08:59 06/25/19 08:55 Enoxaparin Sodium (Lovenox) 40 mg DAILY SUBQ 06/16/19 09:00 09/14/19 08:59 06/25/19 08:57 Hydralazine HCl (Apresoline) 25 mg Q4H PRN ORAL For blood pressure over 160 sy 06/22/19 13:30 09/20/19 13:29 Memantine (Namenda) 10 mg TWICE A DAY ORAL 06/16/19 09:00 07/16/19 08:59 06/25/19 17:22 Metoprolol Succinate (Toprol XL) 25 mg DAILY ORAL 06/19/19 19:15 09/17/19 19:14 06/25/19 08:56 Mirtazapine (Remeron) 15 mg BEDTIME ORAL 06/21/19 21:00 09/19/19 20:59 06/25/19 22:55 Ondansetron HCl (Zofran) 4 mg Q6H PRN IVP Nausea & Vomiting 06/16/19 03:00 07/16/19 02:59 Polyethylene Glycol (Miralax) 17 gm BEDTIME ORAL 06/17/19 21:00 07/17/19 20:59 06/25/19 22:55 Andrew Diaz MD Jun 25, 2019 23:44
[2019-06-26] VITALS: BP 144/76
[2019-06-26 04:00] VITALS: BP 146/81
--- NOTE | 2019-06-26 06:40 | Hematology/Onc Progress Note ---
Assessment/Plan Assessment/Plan Assessment and Plan: # Leukopenia -- multiple etiologies could be related to underlying liver disease , medication-induced, infection versus viral syndrome, in this case likely due to COVID19+, and Hep C+ --> peripheral smear has been ordered and does not show significant abnormalities --> Medications have been reviewed --> Continue to monitor for improvement, trend cbc --> Hep panel and HIV have been ordered--> cw hep C++ exposure --> US abd ordered to r/o cirrhosis and hepatosplenomegaly --> none noted --> reverse isolation if ANC is <2000 --> Give neupogen if ANC <1000 --> 06/22 off abx, repeat covid pending # Suspected 2019 novel coronavirus infection --> per id, on plaq, abx --> iso --> pulm eval recs noted --> 06/22 off abx per id # Pneumonia --> on abx # Elevated troponin ==> nstemi per cards # Elevated LFTs --> likely hep C related # Dvt ppx lovenox sq The timing of this note does not necessarily reflect the time of the patient was seen. Greatly appreciate consultation. Subjective Constitutional: Denies: no symptoms, chills, fever, malaise, weakness, other HEENT: Denies: no symptoms, eye pain, blurred vision, tearing, double vision, ear pain, ear discharge, nose pain, nose congestion, throat pain, throat swelling, mouth pain, mouth swelling, other Cardiovascular: Denies: no symptoms, chest pain, edema, irregular heart rate, lightheadedness, palpitations, syncope, other Gastrointestinal/Abdominal: Denies: no symptoms, abdomen distended, abdominal pain, black stools, tarry stools, blood in stool, constipated, diarrhea, difficulty swallowing, nausea, poor appetite, poor fluid intake, rectal bleeding , vomiting, other Genitourinary: Denies: no symptoms, burning, discharge, frequency, flank pain, hematuria, incontinence, pain, urgency, other Neurologic/Psychiatric: Denies: no symptoms, anxiety, depressed, emotional problems, headache, numbness, paresthesia, pre-existing deficit, seizure, tingling, tremors, weakness, other Endocrine: Denies: no symptoms, excessive sweating, flushing, intolerance to cold, intolerance to heat, increased hunger, increased thirst, increased urine, unexplained weight gain, unexplained weight loss, other Hematologic/Lymphatic: Denies: no symptoms, anemia, easy bleeding, easy bruising, adenopathy, other Allergies: Coded Allergies: No Known Allergies (Unverified , 06/15/19) Subjective 06/20 breathing is better, on iso for covid 19, wbc improved 06/21 labs better, no bleeding, no f/c, meds noted, hcv+ 06/22 restraints, off abx, repeat covid pending, nc 06/23 no bleeding, labs noted, no night sweats, cbc reviewed, on 2l nc 06/25 remains on glucerna, have ordered for labs, no bleeding Objective Objective Current Medications Medications (Trade) Dose Ordered Sig/Kaylan Route PRN Reason Start Time Stop Time Status Last Admin Dose Admin Acetaminophen (Tylenol) 500 mg Q6H PRN ORAL For Pain 06/16/19 00:15 07/16/19 00:14 Acetaminophen (Tylenol) 650 mg Q6H PRN ORAL For Headache 06/16/19 03:00 07/16/19 02:59 Albuterol Sulfate (Proventil MDI) 2 puff Q6H PRN INH Shortness of Breath 06/16/19 03:00 09/14/19 02:59 Amlodipine Besylate (Norvasc) 5 mg DAILY NG 06/23/19 12:00 07/23/19 11:59 06/25/19 08:55 Aspirin (ASA) 81 mg DAILY ORAL 06/16/19 09:00 07/31/19 08:59 06/25/19 08:55 Docusate Sodium (Colace) 100 mg DAILY ORAL 06/16/19 09:00 07/16/19 08:59 06/25/19 08:55 Donepezil HCl (Aricept) 5 mg DAILY ORAL 06/16/19 09:00 07/16/19 08:59 06/25/19 08:55 Enoxaparin Sodium (Lovenox) 40 mg DAILY SUBQ 06/16/19 09:00 09/14/19 08:59 06/25/19 08:57 Hydralazine HCl (Apresoline) 25 mg Q4H PRN ORAL For blood pressure over 160 sy 06/22/19 13:30 09/20/19 13:29 Memantine (Namenda) 10 mg TWICE A DAY ORAL 06/16/19 09:00 07/16/19 08:59 06/25/19 17:22 Metoprolol Succinate (Toprol XL) 25 mg DAILY ORAL 06/19/19 19:15 09/17/19 19:14 06/25/19 08:56 Mirtazapine (Remeron) 15 mg BEDTIME ORAL 06/21/19 21:00 09/19/19 20:59 06/25/19 22:55 Ondansetron HCl (Zofran) 4 mg Q6H PRN IVP Nausea & Vomiting 06/16/19 03:00 07/16/19 02:59 Polyethylene Glycol (Miralax) 17 gm BEDTIME ORAL 06/17/19 21:00 07/17/19 20:59 06/25/19 22:55 Last 24 Hour Vital Signs Date Time Temp Pulse Resp B/P (MAP) Pulse Ox O2 Delivery O2 Flow Rate FiO2 06/26/19 04:00 98.0 85 19 146/81 (102) 94 06/26/19 04:00 106 06/26/19 00:00 97.5 81 18 144/76 (98) 95 06/26/19 00:00 77 06/25/19 21:00 Nasal Cannula 2.0 06/25/19 20:00 97.9 84 18 156/82 (106) 94 06/25/19 20:00 72 06/25/19 16:00 74 06/25/19 16:00 96.4 84 17 139/76 (97) 94 06/25/19 12:00 63 06/25/19 12:00 97.3 68 17 110/69 (83) 95 06/25/19 09:00 Nasal Cannula 2.0 06/25/19 08:56 89 134/75 06/25/19 08:55 89 134/75 06/25/19 08:00 97.2 89 17 134/75 (94) 95 06/25/19 08:00 68 06/25/19 04:00 66 06/25/19 04:00 98.2 67 17 120/69 (86) 96 06/25/19 00:00 73 06/25/19 00:00 98.9 79 21 137/78 (97) 95 06/24/19 21:00 Nasal Cannula 2.0 06/24/19 20:00 76 06/24/19 20:00 98.8 92 20 153/83 (106) 98 06/24/19 16:00 98.8 80 17 131/78 (95) 95 06/24/19 16:00 80 06/24/19 12:00 79 06/24/19 12:00 98.9 79 17 105/61 (76) 93 06/24/19 09:00 Nasal Cannula 2.0 06/24/19 09:00 86 141/89 06/24/19 09:00 86 141/89 06/24/19 08:00 98.2 84 20 119/72 (88) 94 06/24/19 08:00 84 Intake and Output 06/25/19 06/26/19 19:00 07:00 Intake Total 43 ml 401 ml Balance 43 ml 401 ml Free Water 100 ml Tube Feeding 43 ml 301 ml # Voids 2 2 # Bowel Movements 1 Labs Test 06/23/19 06:50 06/24/19 08:30 06/25/19 06:20 White Blood Count 5.5 K/UL (4.8-10.8) 10.2 K/UL (4.8-10.8) 9.4 K/UL (4.8-10.8) Red Blood Count 4.74 M/UL (4.70-6.10) 4.83 M/UL (4.70-6.10) 4.43 M/UL (4.70-6.10) Hemoglobin 14.5 G/DL (14.2-18.0) 14.6 G/DL (14.2-18.0) 13.5 G/DL (14.2-18.0) Hematocrit 42.5 % (42.0-52.0) 43.0 % (42.0-52.0) 40.2 % (42.0-52.0) Mean Corpuscular Volume 90 FL (80-99) 89 FL (80-99) 91 FL (80-99) Mean Corpuscular Hemoglobin 30.6 PG (27.0-31.0) 30.1 PG (27.0-31.0) 30.5 PG (27.0-31.0) Mean Corpuscular Hemoglobin Concent 34.1 G/DL (32.0-36.0) 33.9 G/DL (32.0-36.0) 33.7 G/DL (32.0-36.0) Red Cell Distribution Width 12.7 % (11.6-14.8) 12.5 % (11.6-14.8) 12.7 % (11.6-14.8) Platelet Count 435 K/UL (150-450) 432 K/UL (150-450) 369 K/UL (150-450) Mean Platelet Volume 5.3 FL (6.5-10.1) 5.5 FL (6.5-10.1) 5.2 FL (6.5-10.1) Neutrophils (%) (Auto) 71.0 % (45.0-75.0) % (45.0-75.0) 73.4 % (45.0-75.0) Lymphocytes (%) (Auto) 19.4 % (20.0-45.0) % (20.0-45.0) 21.1 % (20.0-45.0) Monocytes (%) (Auto) 8.4 % (1.0-10.0) % (1.0-10.0) 5.2 % (1.0-10.0) Eosinophils (%) (Auto) 0.7 % (0.0-3.0) % (0.0-3.0) 0.1 % (0.0-3.0) Basophils (%) (Auto) 0.4 % (0.0-2.0) % (0.0-2.0) 0.3 % (0.0-2.0) Sodium Level 141 MMOL/L (136-145) 135 MMOL/L (136-145) 140 MMOL/L (136-145) Potassium Level 4.2 MMOL/L (3.5-5.1) 4.0 MMOL/L (3.5-5.1) 4.6 MMOL/L (3.5-5.1) Chloride Level 105 MMOL/L (98-107) 101 MMOL/L (98-107) 104 MMOL/L (98-107) Carbon Dioxide Level 29 MMOL/L (21-32) 28 MMOL/L (21-32) 32 MMOL/L (21-32) Anion Gap 7 mmol/L (5-15) 6 mmol/L (5-15) 4 mmol/L (5-15) Blood Urea Nitrogen 15 mg/dL (7-18) 15 mg/dL (7-18) 16 mg/dL (7-18) Creatinine 0.8 MG/DL (0.55-1.30) 0.7 MG/DL (0.55-1.30) 0.7 MG/DL (0.55-1.30) Estimat Glomerular Filtration Rate > 60 mL/min (>60) > 60 mL/min (>60) > 60 mL/min (>60) Glucose Level 114 MG/DL (74-106) 168 MG/DL (74-106) 109 MG/DL (74-106) Calcium Level 9.2 MG/DL (8.5-10.1) 8.5 MG/DL (8.5-10.1) 8.3 MG/DL (8.5-10.1) Differential Total Cells Counted 100 Neutrophils % (Manual) 87 % (45-75) Lymphocytes % (Manual) 10 % (20-45) Monocytes % (Manual) 3 % (1-10) Eosinophils % (Manual) 0 % (0-3) Basophils % (Manual) 0 % (0-2) Band Neutrophils 0 % (0-8) Platelet Estimate Adequate Platelet Morphology Normal Red Blood Cell Morphology Normal Phosphorus Level 2.4 MG/DL (2.5-4.9) Total Bilirubin 0.5 MG/DL (0.2-1.0) 0.5 MG/DL (0.2-1.0) Aspartate Amino Transf (AST/SGOT) 117 U/L (15-37) 83 U/L (15-37) Alanine Aminotransferase (ALT/SGPT) 103 U/L (12-78) 85 U/L (12-78) Alkaline Phosphatase 144 U/L (46-116) 145 U/L (46-116) Total Protein 7.8 G/DL (6.4-8.2) 7.0 G/DL (6.4-8.2) Albumin 2.2 G/DL (3.4-5.0) 2.2 G/DL (3.4-5.0) Globulin 5.6 g/dL 4.8 g/dL Albumin/Globulin Ratio 0.4 (1.0-2.7) 0.5 (1.0-2.7) Height (Feet): 5 Height (Inches): 2.00 Weight (Pounds): 130 Objective Physical Exam General: Awake and somewhat confused, no acute distress HEENT: NC/AT. EOMI. Cardiovascular: RRR. S1 and S2 normal. No murmur appreciated Resp: Mild tachypnea, normal work of breathing. On 2 L nasal cannula. Abdomen: Abdomen is soft, nondistended. Nontender Skin: Intact. No abrasions, laceration MSK: Normal tone and bulk. Moving all extremities Neuro: Awake and somewhat confused. Poor historian Geraldo Galvez MD Jun 26, 2019 06:39
--- NOTE | 2019-06-26 07:10 | NUR ---
HAND-OFF: Report given to MANOLO Monahan. Patient is asleep lying semi-garcia's; resting comfortably. NG tube in place. Glucerna 1.5 running at 43 mls/hr. In stable condition.
--- NOTE | 2019-06-26 07:17 | NUR ---
NURSE NOTES: Received report from MANOLO Carmona. Patient in bed resting, no active s/s cardiac, respiratory distress noticed at this time. Patient AOx1, open eyes spontaneously, on 2L NC. NGT on left nares, running Glucerna 1.5 at 43ml/h. Patient on bilateral soft wrist restraints, able to move, cap refill <3sec. Bed in lowest position, side rails upx2, call light within reach, bed alarm on. Will continue to monitor.
[2019-06-26 08:00] VITALS: BP 111/73
[2019-06-26 08:01] LABS: HEMATOCRIT 41.7 % (42.0-52.0); MEAN CORPUSCULAR VOLUME 89 FL (80-99); PLATELET COUNT 409 K/UL (150-450); RED BLOOD COUNT 4.66 M/UL (4.70-6.10); RED CELL DISTRIBUTION WIDTH 12.5 % (11.6-14.8); WHITE BLOOD COUNT 10.9 K/UL (4.8-10.8)
[2019-06-26 08:59] LABS: ANION GAP 7 mmol/L (5-15); BLOOD UREA NITROGEN 17 mg/dL (7-18); CALCIUM 8.8 MG/DL (8.5-10.1); CARBON DIOXIDE 29 MMOL/L (21-32); CHLORIDE 102 MMOL/L (98-107); CREATININE 0.8 MG/DL (0.55-1.30); POTASSIUM 4.3 MMOL/L (3.5-5.1); SODIUM 138 MMOL/L (136-145)
[2019-06-26] MEDS: Docusate 100mg cap ORAL SCH (09:34)
[2019-06-26] MEDS: Memantine 10mg tab ORAL SCH ×2 (09:34→17:24)
[2019-06-26] MEDS: Metoprolol Succinate XL 25mg tab ORAL SCH (09:35)
[2019-06-26] MEDS: Donepezil 5mg Tab ORAL SCH (09:35)
[2019-06-26] MEDS: Aspirin Baby 81mg ORAL SCH (09:35)
[2019-06-26] MEDS: Enoxaparin 40mg Inj SUBQ SCH (09:36)
[2019-06-26 12:00] VITALS: BP 101/64
--- NOTE | 2019-06-26 12:03 | GI Progress Note ---
Assessment/Plan Problems: (1) Elevated LFTs ICD Codes: R79.89 - Other specified abnormal findings of blood chemistry SNOMED: 960934396, 695999333, 087905304 (2) Dehydration ICD Codes: E86.0 - Dehydration SNOMED: 38137931 (3) Suspected 2019 novel coronavirus infection ICD Codes: R68.89 - Other general symptoms and signs SNOMED: 057272078 (4) Pneumonia ICD Codes: J18.9 - Pneumonia, unspecified organism SNOMED: 770333608, 826840086, 211844394 (5) Electrolyte imbalance ICD Codes: E87.8 - Other disorders of electrolyte and fluid balance, not elsewhere classified SNOMED: 258738059 Status: unchanged Status Narrative Discussed with Dr. Quiroga. Assessment/Plan 1. History of dementia. 2. CHF. 3. Hypertension. 4. BPH. 5. Constipation. 6. elevated LFTS 7. AMI 8. gallstones ++ Covid-19 improving LFTS hep C positive>>> will send HCV RNA and patient needs out patient fu for treatment fu cardiology repeat labs in am ngt in place ngTF The patient was seen and examined at bedside and all new and available data was reviewed in the patients chart. I agree with the above findings, impression and plan. (Patient seen earlier today. Signature stamp does not reflect patient encounter time.). - Perry Quiroga MD Subjective Subjective limited Objective Last 24 Hour Vital Signs Date Time Temp Pulse Resp B/P (MAP) Pulse Ox O2 Delivery O2 Flow Rate FiO2 06/26/19 09:35 101 111/73 06/26/19 09:00 101 111/73 06/26/19 09:00 Nasal Cannula 2.0 06/26/19 08:00 100.4 101 19 111/73 (86) 95 06/26/19 08:00 98 06/26/19 04:00 98.0 85 19 146/81 (102) 94 06/26/19 04:00 106 06/26/19 00:00 97.5 81 18 144/76 (98) 95 06/26/19 00:00 77 06/25/19 21:00 Nasal Cannula 2.0 06/25/19 20:00 97.9 84 18 156/82 (106) 94 06/25/19 20:00 72 06/25/19 16:00 74 06/25/19 16:00 96.4 84 17 139/76 (97) 94 Intake and Output 06/25/19 06/26/19 19:00 07:00 Intake Total 43 ml 616 ml Balance 43 ml 616 ml Free Water 100 ml Tube Feeding 43 ml 516 ml # Voids 2 2 # Bowel Movements 1 Laboratory Tests Test 06/26/19 07:10 White Blood Count 10.9 K/UL (4.8-10.8) H Red Blood Count 4.66 M/UL (4.70-6.10) L Hemoglobin 14.0 G/DL (14.2-18.0) L Hematocrit 41.7 % (42.0-52.0) L Mean Corpuscular Volume 89 FL (80-99) Mean Corpuscular Hemoglobin 30.0 PG (27.0-31.0) Mean Corpuscular Hemoglobin Concent 33.6 G/DL (32.0-36.0) Red Cell Distribution Width 12.5 % (11.6-14.8) Platelet Count 409 K/UL (150-450) Mean Platelet Volume 5.5 FL (6.5-10.1) L Neutrophils (%) (Auto) % (45.0-75.0) Lymphocytes (%) (Auto) % (20.0-45.0) Monocytes (%) (Auto) % (1.0-10.0) Eosinophils (%) (Auto) % (0.0-3.0) Basophils (%) (Auto) % (0.0-2.0) Differential Total Cells Counted 100 Neutrophils % (Manual) 92 % (45-75) H Lymphocytes % (Manual) 4 % (20-45) L Monocytes % (Manual) 4 % (1-10) Eosinophils % (Manual) 0 % (0-3) Basophils % (Manual) 0 % (0-2) Band Neutrophils 0 % (0-8) Platelet Estimate Adequate Platelet Morphology Normal Red Blood Cell Morphology Normal Sodium Level 138 MMOL/L (136-145) Potassium Level 4.3 MMOL/L (3.5-5.1) Chloride Level 102 MMOL/L (98-107) Carbon Dioxide Level 29 MMOL/L (21-32) Anion Gap 7 mmol/L (5-15) Blood Urea Nitrogen 17 mg/dL (7-18) Creatinine 0.8 MG/DL (0.55-1.30) Estimat Glomerular Filtration Rate > 60 mL/min (>60) Glucose Level 178 MG/DL (74-106) H Calcium Level 8.8 MG/DL (8.5-10.1) Height (Feet): 5 Height (Inches): 2.00 Weight (Pounds): 130 General Appearance: WD/WN, no apparent distress, alert Cardiovascular: normal rate Respiratory/Chest: normal breath sounds, no respiratory distress Abdominal Exam: normal bowel sounds, non tender, soft Extremities: normal range of motion, non-tender Rishi Patricio [employer] Jun 26, 2019 12:03
--- NOTE | 2019-06-26 12:53 | Infectious Diseases Prog Note ---
Assessment/Plan Assessment/Plan IMPRESSION: COIVD19 Pneumonia, Cholelithiasis and elevated transaminase level, acidosis, dementia with behavioral problem. Dysphagia RECOMMENDATION: We will repeat COVID19 test Repeat CXR Subjective ROS Limited/Unobtainable: Yes Constitutional: Reports: fever, other - T=100.4 in am Neurologic: Reports: confusion, other - on restraint Allergies: Coded Allergies: No Known Allergies (Unverified , 06/15/19) Objective Vital Signs Last 24 Hour Vital Signs Date Time Temp Pulse Resp B/P (MAP) Pulse Ox O2 Delivery O2 Flow Rate FiO2 06/26/19 12:00 97.3 87 19 101/64 (76) 96 06/26/19 09:35 101 111/73 06/26/19 09:00 101 111/73 06/26/19 09:00 Nasal Cannula 2.0 06/26/19 08:00 100.4 101 19 111/73 (86) 95 06/26/19 08:00 98 06/26/19 04:00 98.0 85 19 146/81 (102) 94 06/26/19 04:00 106 06/26/19 00:00 97.5 81 18 144/76 (98) 95 06/26/19 00:00 77 06/25/19 21:00 Nasal Cannula 2.0 06/25/19 20:00 97.9 84 18 156/82 (106) 94 06/25/19 20:00 72 06/25/19 16:00 74 06/25/19 16:00 96.4 84 17 139/76 (97) 94 Height (Feet): 5 Height (Inches): 2.00 Weight (Pounds): 130 General Appearance: no acute distress HEENT: mucous membranes moist Respiratory/Chest: lungs clear Cardiovascular: normal rate Abdomen: soft, non tender, other - NG tube Extremities: no edema Neurologic/Psychiatric: disoriented Microbiology Date/Time Source Procedure Growth Status 06/23/19 15:00 Nasopharynx Coronavirus COVID-19 PCR ([facility]) - Final Complete Laboratory Tests Test 06/26/19 07:10 White Blood Count 10.9 K/UL (4.8-10.8) H Red Blood Count 4.66 M/UL (4.70-6.10) L Hemoglobin 14.0 G/DL (14.2-18.0) L Hematocrit 41.7 % (42.0-52.0) L Mean Corpuscular Volume 89 FL (80-99) Mean Corpuscular Hemoglobin 30.0 PG (27.0-31.0) Mean Corpuscular Hemoglobin Concent 33.6 G/DL (32.0-36.0) Red Cell Distribution Width 12.5 % (11.6-14.8) Platelet Count 409 K/UL (150-450) Mean Platelet Volume 5.5 FL (6.5-10.1) L Neutrophils (%) (Auto) % (45.0-75.0) Lymphocytes (%) (Auto) % (20.0-45.0) Monocytes (%) (Auto) % (1.0-10.0) Eosinophils (%) (Auto) % (0.0-3.0) Basophils (%) (Auto) % (0.0-2.0) Differential Total Cells Counted 100 Neutrophils % (Manual) 92 % (45-75) H Lymphocytes % (Manual) 4 % (20-45) L Monocytes % (Manual) 4 % (1-10) Eosinophils % (Manual) 0 % (0-3) Basophils % (Manual) 0 % (0-2) Band Neutrophils 0 % (0-8) Platelet Estimate Adequate Platelet Morphology Normal Red Blood Cell Morphology Normal Sodium Level 138 MMOL/L (136-145) Potassium Level 4.3 MMOL/L (3.5-5.1) Chloride Level 102 MMOL/L (98-107) Carbon Dioxide Level 29 MMOL/L (21-32) Anion Gap 7 mmol/L (5-15) Blood Urea Nitrogen 17 mg/dL (7-18) Creatinine 0.8 MG/DL (0.55-1.30) Estimat Glomerular Filtration Rate > 60 mL/min (>60) Glucose Level 178 MG/DL (74-106) H Calcium Level 8.8 MG/DL (8.5-10.1) Current Medications Medications (Trade) Dose Ordered Sig/Kaylan Route PRN Reason Start Time Stop Time Status Last Admin Dose Admin Acetaminophen (Tylenol) 500 mg Q6H PRN ORAL For Pain 06/16/19 00:15 07/16/19 00:14 Acetaminophen (Tylenol) 650 mg Q6H PRN ORAL For Headache 06/16/19 03:00 07/16/19 02:59 06/26/19 09:35 Albuterol Sulfate (Proventil MDI) 2 puff Q6H PRN INH Shortness of Breath 06/16/19 03:00 09/14/19 02:59 Amlodipine Besylate (Norvasc) 5 mg DAILY NG 06/23/19 12:00 07/23/19 11:59 06/25/19 08:55 Aspirin (ASA) 81 mg DAILY ORAL 06/16/19 09:00 07/31/19 08:59 06/26/19 09:35 Docusate Sodium (Colace) 100 mg DAILY ORAL 06/16/19 09:00 07/16/19 08:59 06/26/19 09:34 Donepezil HCl (Aricept) 5 mg DAILY ORAL 06/16/19 09:00 07/16/19 08:59 06/26/19 09:35 Enoxaparin Sodium (Lovenox) 40 mg DAILY SUBQ 06/16/19 09:00 09/14/19 08:59 06/26/19 09:36 Hydralazine HCl (Apresoline) 25 mg Q4H PRN ORAL For blood pressure over 160 sy 06/22/19 13:30 09/20/19 13:29 Memantine (Namenda) 10 mg TWICE A DAY ORAL 06/16/19 09:00 07/16/19 08:59 06/26/19 09:34 Metoprolol Succinate (Toprol XL) 25 mg DAILY ORAL 06/19/19 19:15 09/17/19 19:14 06/26/19 09:35 Mirtazapine (Remeron) 15 mg BEDTIME ORAL 06/21/19 21:00 09/19/19 20:59 06/25/19 22:55 Ondansetron HCl (Zofran) 4 mg Q6H PRN IVP Nausea & Vomiting 06/16/19 03:00 07/16/19 02:59 Polyethylene Glycol (Miralax) 17 gm BEDTIME ORAL 06/17/19 21:00 07/17/19 20:59 06/25/19 22:55 Benigno Betancourt MD Jun 26, 2019 12:53
--- NOTE | 2019-06-26 14:09 | Nephrology Progress Note ---
Assessment/Plan Problem List: (1) Dehydration (2) Electrolyte imbalance (3) Elevated LFTs (4) HTN (hypertension) Assessment Electrolyte imbalance Dehydration and free water deficit Pneumonia suspected COVID-19 infection Elevated troponin Dementia Cholelithiasis and elevated liver enzymes BPH Hypertension Plan DC IV fluid and PO KCL Add Norvasc Hydralazine as needed for blood pressure over 160 systolic Monitor electrolyte Continue per consultants Urine analysis ordered as none is available since admission Per orders Subjective ROS Limited/Unobtainable: No Constitutional: Reports: malaise Objective Objective Last 24 Hour Vital Signs Date Time Temp Pulse Resp B/P (MAP) Pulse Ox O2 Delivery O2 Flow Rate FiO2 06/26/19 12:00 97.3 87 19 101/64 (76) 96 06/26/19 12:00 75 06/26/19 09:35 101 111/73 06/26/19 09:00 101 111/73 06/26/19 09:00 Nasal Cannula 2.0 06/26/19 08:00 100.4 101 19 111/73 (86) 95 06/26/19 08:00 98 06/26/19 04:00 98.0 85 19 146/81 (102) 94 06/26/19 04:00 106 06/26/19 00:00 97.5 81 18 144/76 (98) 95 06/26/19 00:00 77 06/25/19 21:00 Nasal Cannula 2.0 06/25/19 20:00 97.9 84 18 156/82 (106) 94 06/25/19 20:00 72 06/25/19 16:00 74 06/25/19 16:00 96.4 84 17 139/76 (97) 94 Intake and Output 06/25/19 06/26/19 19:00 07:00 Intake Total 43 ml 616 ml Balance 43 ml 616 ml Free Water 100 ml Tube Feeding 43 ml 516 ml # Voids 2 2 # Bowel Movements 1 Laboratory Tests 06/26/19 07:10: White Blood Count 10.9H, Red Blood Count 4.66L, Hemoglobin 14.0L, Hematocrit 41.7L, Mean Corpuscular Volume 89, Mean Corpuscular Hemoglobin 30.0, Mean Corpuscular Hemoglobin Concent 33.6, Red Cell Distribution Width 12.5, Platelet Count 409, Mean Platelet Volume 5.5L, Neutrophils (%) (Auto) , Lymphocytes (%) ( Auto) , Monocytes (%) (Auto) , Eosinophils (%) (Auto) , Basophils (%) (Auto) , Differential Total Cells Counted 100, Neutrophils % (Manual) 92H, Lymphocytes % (Manual) 4L, Monocytes % (Manual) 4, Eosinophils % (Manual) 0, Basophils % ( Manual) 0, Band Neutrophils 0, Platelet Estimate Adequate, Platelet Morphology Normal, Red Blood Cell Morphology Normal, Sodium Level 138, Potassium Level 4.3 , Chloride Level 102, Carbon Dioxide Level 29, Anion Gap 7, Blood Urea Nitrogen 17, Creatinine 0.8, Estimat Glomerular Filtration Rate > 60, Glucose Level 178H , Calcium Level 8.8 Height (Feet): 5 Height (Inches): 2.00 Weight (Pounds): 130 General Appearance: no apparent distress EENT: other - Has NG tube Cardiovascular: tachycardia Respiratory/Chest: decreased breath sounds Abdomen: distended Drew Gonzalez MD Jun 26, 2019 14:09
[2019-06-26 15:12] LABS: ALANINE AMINOTRANSFERASE 76 U/L (12-78); ALBUMIN 2.3 G/DL (3.4-5.0); ALKALINE PHOSPHATASE 145 U/L (46-116); ASPARTATE AMINO TRANSFERASE 77 U/L (15-37); BILIRUBIN,DIRECT 0.2 MG/DL (0.0-0.3); BILIRUBIN,TOTAL 0.4 MG/DL (0.2-1.0)
[2019-06-26 16:00] VITALS: BP 108/63
--- NOTE | 2019-06-26 17:30 | NUR ---
NURSE NOTES: COVID-19 specimen sent out.
--- NOTE | 2019-06-26 19:17 | NUR ---
HAND-OFF: Report given to MANOLO Carmona. Endorsed plan of care.
--- NOTE | 2019-06-26 19:17 | NUR ---
NURSE NOTES: Called Dr. Malhotra regarding renew order for restraints. Awaiting callback.
--- NOTE | 2019-06-26 19:26 | NUR ---
NURSE NOTES: Received report from MANOLO Monahan. Patient is asleep lying semi-garcia's; resting comfortably. No signs of acute distress or pain noted at this time. On 2L nasal cannula. AOx1; unable to make needs known. Checked IV site; patent and flushed. No erythema, bleeding, or infiltration noted. NG tube in place. Glucerna 1.5 running at 43 mls/hr. Bed at lowest position, brakes on, siderails up x3. Call light within reach. Will continue to monitor.
[2019-06-26 20:00] VITALS: BP 125/62
[2019-06-26] MEDS: Miralax 17gm pkt ORAL SCH (20:15)
--- NOTE | 2019-06-26 20:35 | NUR ---
NURSE NOTES: Received new order from Dr. Malhotra to continue restraints. Noted and carried out.
--- NOTE | 2019-06-26 22:19 | General Progress Note ---
Assessment/Plan Problem List: (1) Elevated troponin ICD Codes: R79.89 - Other specified abnormal findings of blood chemistry SNOMED: 587291782, 603460001, 157764643 (2) Elevated LFTs ICD Codes: R79.89 - Other specified abnormal findings of blood chemistry SNOMED: 363163641, 660971443, 559066704 (3) Pneumonia ICD Codes: J18.9 - Pneumonia, unspecified organism SNOMED: 971538991, 724600002, 622282130 (4) Suspected 2019 novel coronavirus infection ICD Codes: R68.89 - Other general symptoms and signs SNOMED: 193777016 Status: progressing, unchanged Assessment/Plan: covid positive pna resp insuff sepsis no fever reviewed chart and labs no cp mildly elevated lft.improved Subjective ROS Limited/Unobtainable: Yes Allergies: Coded Allergies: No Known Allergies (Unverified , 06/15/19) Objective Last 24 Hour Vital Signs Date Time Temp Pulse Resp B/P (MAP) Pulse Ox O2 Delivery O2 Flow Rate FiO2 06/26/19 16:00 72 06/26/19 16:00 97.9 74 19 108/63 (78) 94 06/26/19 12:00 97.3 87 19 101/64 (76) 96 06/26/19 12:00 75 06/26/19 09:35 101 111/73 06/26/19 09:00 101 111/73 06/26/19 09:00 Nasal Cannula 2.0 06/26/19 08:00 100.4 101 19 111/73 (86) 95 06/26/19 08:00 98 06/26/19 04:00 98.0 85 19 146/81 (102) 94 06/26/19 04:00 106 06/26/19 00:00 97.5 81 18 144/76 (98) 95 06/26/19 00:00 77 Intake and Output 06/25/19 06/26/19 19:00 07:00 Intake Total 43 ml 616 ml Balance 43 ml 616 ml Free Water 100 ml Tube Feeding 43 ml 516 ml # Voids 2 2 # Bowel Movements 1 Laboratory Tests 06/26/19 07:10: White Blood Count 10.9H, Red Blood Count 4.66L, Hemoglobin 14.0L, Hematocrit 41.7L, Mean Corpuscular Volume 89, Mean Corpuscular Hemoglobin 30.0, Mean Corpuscular Hemoglobin Concent 33.6, Red Cell Distribution Width 12.5, Platelet Count 409, Mean Platelet Volume 5.5L, Neutrophils (%) (Auto) , Lymphocytes (%) ( Auto) , Monocytes (%) (Auto) , Eosinophils (%) (Auto) , Basophils (%) (Auto) , Differential Total Cells Counted 100, Neutrophils % (Manual) 92H, Lymphocytes % (Manual) 4L, Monocytes % (Manual) 4, Eosinophils % (Manual) 0, Basophils % ( Manual) 0, Band Neutrophils 0, Platelet Estimate Adequate, Platelet Morphology Normal, Red Blood Cell Morphology Normal, Sodium Level 138, Potassium Level 4.3 , Chloride Level 102, Carbon Dioxide Level 29, Anion Gap 7, Blood Urea Nitrogen 17, Creatinine 0.8, Estimat Glomerular Filtration Rate > 60, Glucose Level 178H , Calcium Level 8.8, Total Bilirubin 0.4, Direct Bilirubin 0.2, Aspartate Amino Transf (AST/SGOT) 77H, Alanine Aminotransferase (ALT/SGPT) 76, Alkaline Phosphatase 145H, Total Protein 8.2, Albumin 2.3L Height (Feet): 5 Height (Inches): 2.00 Weight (Pounds): 130 Gorge Malhotra MD Jun 26, 2019 22:19
--- NOTE | 2019-06-26 23:51 | Cardiology Progress Note ---
Assessment/Plan Assessment/Plan 1. Dyspnea due to possibly combination of COVID-19 pneumonia in addition to with acute congestive heart failure in face of elevated proBNP, continue lasix and metoprolol. ? LVEF, 2D echocardiography was rejected by the cardiology department due to COVID-19 infection. 2. Possible [id number]-[id number] myocardial infarction or elevated troponin I level could be secondary to myonecrosis due to CHF. 3. HCV infection. Subjective Subjective Sinus rhythm at rate of 82. Objective Last 24 Hour Vital Signs Date Time Temp Pulse Resp B/P (MAP) Pulse Ox O2 Delivery O2 Flow Rate FiO2 06/26/19 21:00 Nasal Cannula 2.0 06/26/19 20:00 97.7 82 18 125/62 (83) 90 06/26/19 20:00 79 06/26/19 16:00 72 06/26/19 16:00 97.9 74 19 108/63 (78) 94 06/26/19 12:00 97.3 87 19 101/64 (76) 96 06/26/19 12:00 75 06/26/19 09:35 101 111/73 06/26/19 09:00 101 111/73 06/26/19 09:00 Nasal Cannula 2.0 06/26/19 08:00 100.4 101 19 111/73 (86) 95 06/26/19 08:00 98 06/26/19 04:00 98.0 85 19 146/81 (102) 94 06/26/19 04:00 106 06/26/19 00:00 97.5 81 18 144/76 (98) 95 06/26/19 00:00 77 Intake and Output 06/25/19 06/26/19 19:00 07:00 Intake Total 43 ml 616 ml Balance 43 ml 616 ml Free Water 100 ml Tube Feeding 43 ml 516 ml # Voids 2 2 # Bowel Movements 1 Laboratory Tests Test 06/26/19 07:10 White Blood Count 10.9 K/UL (4.8-10.8) H Red Blood Count 4.66 M/UL (4.70-6.10) L Hemoglobin 14.0 G/DL (14.2-18.0) L Hematocrit 41.7 % (42.0-52.0) L Mean Corpuscular Volume 89 FL (80-99) Mean Corpuscular Hemoglobin 30.0 PG (27.0-31.0) Mean Corpuscular Hemoglobin Concent 33.6 G/DL (32.0-36.0) Red Cell Distribution Width 12.5 % (11.6-14.8) Platelet Count 409 K/UL (150-450) Mean Platelet Volume 5.5 FL (6.5-10.1) L Neutrophils (%) (Auto) % (45.0-75.0) Lymphocytes (%) (Auto) % (20.0-45.0) Monocytes (%) (Auto) % (1.0-10.0) Eosinophils (%) (Auto) % (0.0-3.0) Basophils (%) (Auto) % (0.0-2.0) Differential Total Cells Counted 100 Neutrophils % (Manual) 92 % (45-75) H Lymphocytes % (Manual) 4 % (20-45) L Monocytes % (Manual) 4 % (1-10) Eosinophils % (Manual) 0 % (0-3) Basophils % (Manual) 0 % (0-2) Band Neutrophils 0 % (0-8) Platelet Estimate Adequate Platelet Morphology Normal Red Blood Cell Morphology Normal Sodium Level 138 MMOL/L (136-145) Potassium Level 4.3 MMOL/L (3.5-5.1) Chloride Level 102 MMOL/L (98-107) Carbon Dioxide Level 29 MMOL/L (21-32) Anion Gap 7 mmol/L (5-15) Blood Urea Nitrogen 17 mg/dL (7-18) Creatinine 0.8 MG/DL (0.55-1.30) Estimat Glomerular Filtration Rate > 60 mL/min (>60) Glucose Level 178 MG/DL (74-106) H Calcium Level 8.8 MG/DL (8.5-10.1) Total Bilirubin 0.4 MG/DL (0.2-1.0) Direct Bilirubin 0.2 MG/DL (0.0-0.3) Aspartate Amino Transf (AST/SGOT) 77 U/L (15-37) H Alanine Aminotransferase (ALT/SGPT) 76 U/L (12-78) Alkaline Phosphatase 145 U/L (46-116) H Total Protein 8.2 G/DL (6.4-8.2) Albumin 2.3 G/DL (3.4-5.0) L Objective HEENT: Atraumatic and normocephalic. Anicteric. Pupils are equal, round, and reactive to light and accommodation. Extraocular muscles intact. NECK: JVP is less than 5 cm. No carotid bruit. Carotid upstroke is 2+ bilaterally. CARDIOVASCULAR: Normal S1 and S2. Regular rate and rhythm. No murmurs, gallops, or rubs. PMI is at fourth intercostal space at midclavicular line. LUNGS: Diminished breath sounds in both bases with associated crackles. ABDOMEN: Soft, nontender, and nondistended. No hepatosplenomegaly. Positive bowel sounds. EXTREMITIES: No evidence of edema, clubbing, or cyanosis. Rolf Moreno MD Jun 26, 2019 23:51
--- NOTE | 2019-06-26 23:58 | Pulmonology Progress Note ---
Assessment/Plan Assessment/Plan Pulmonary Progress Note HPI: Patient is a 88-year-old male history of Dementia, Congestive Heart Failure , admitted from alf facility with Pneumonia, COVID 19 positive, noted to have fever and shortness of breath, chest congestion and tightness for 2 days. Noted to be confused in the ED. Has been febrile with low-grade temperatures for the past 2 days. No vomiting or diarrhea or abdominal pain. Stable O2 requirements - 2L NC, stable Pulmonary Status PMH: Dementia, Congestive Heart Failure Social Hx: Assisted Resident FHx: NC Allergies: No Known Allergies All Other Systems: limited - AMS Physical Exam Vital signs noted General: Awake and somewhat confused, no acute distress HEENT: NC/AT. EOMI. Cardiovascular: RRR. S1 and S2 normal. No murmur appreciated Resp: Mild tachypnea, normal work of breathing. On 2 L nasal cannula. No cough Abdomen: Abdomen is soft, nondistended. Nontender Skin: Intact. No abrasions, laceration or rash noted MSK: Normal tone and bulk. Moving all extremities. No obvious deformity. Neuro: Awake and somewhat confused. Poor historian. No focal signs Impression: Pneumonia Suspected 2019 novel coronavirus infection Elevated troponin Elevated LFTs Lymphopenia Dementia Congestive Heart Failure Assisted Resident Plan Antibiotics/antivirals per ID O2 PRN Albuterol MDI PRN PPX - Lovenox ASA Monitor labs - hypokalemia - s/p supplementation Monitor cultures/viral studies Ultrasound of the abdomen pending. Isolation for suspected COVID-19 infection Laboratory Tests noted EKG Rate: normal Rhythm: NSR ST Segments: no acute changes Sinus rhythm, left axis deviation. Occasional PACs. T wave inversions, no ST segment changes Chest X-Ray: Consolidations in the left lower lobe may represent an early pneumonia. No effusion. Current CXR stable infiltrates . Subjective ROS Limited/Unobtainable: No Constitutional: Reports: fever, other - T=100.4 in am Respiratory: Reports: shortness of breath Allergies: Coded Allergies: No Known Allergies (Unverified , 06/15/19) Objective Last 24 Hour Vital Signs Date Time Temp Pulse Resp B/P (MAP) Pulse Ox O2 Delivery O2 Flow Rate FiO2 06/26/19 21:00 Nasal Cannula 2.0 06/26/19 20:00 97.7 82 18 125/62 (83) 90 06/26/19 20:00 79 06/26/19 16:00 72 06/26/19 16:00 97.9 74 19 108/63 (78) 94 06/26/19 12:00 97.3 87 19 101/64 (76) 96 06/26/19 12:00 75 06/26/19 09:35 101 111/73 06/26/19 09:00 101 111/73 06/26/19 09:00 Nasal Cannula 2.0 06/26/19 08:00 100.4 101 19 111/73 (86) 95 06/26/19 08:00 98 06/26/19 04:00 98.0 85 19 146/81 (102) 94 06/26/19 04:00 106 06/26/19 00:00 97.5 81 18 144/76 (98) 95 06/26/19 00:00 77 Intake and Output 06/25/19 06/26/19 19:00 07:00 Intake Total 43 ml 616 ml Balance 43 ml 616 ml Free Water 100 ml Tube Feeding 43 ml 516 ml # Voids 2 2 # Bowel Movements 1 General Appearance: no acute distress HEENT: mucous membranes moist Abdomen: soft, non tender, other - NG tube Extremities: no edema Neurologic/Psychiatric: disoriented Laboratory Tests 06/26/19 07:10: White Blood Count 10.9H, Red Blood Count 4.66L, Hemoglobin 14.0L, Hematocrit 41.7L, Mean Corpuscular Volume 89, Mean Corpuscular Hemoglobin 30.0, Mean Corpuscular Hemoglobin Concent 33.6, Red Cell Distribution Width 12.5, Platelet Count 409, Mean Platelet Volume 5.5L, Neutrophils (%) (Auto) , Lymphocytes (%) ( Auto) , Monocytes (%) (Auto) , Eosinophils (%) (Auto) , Basophils (%) (Auto) , Differential Total Cells Counted 100, Neutrophils % (Manual) 92H, Lymphocytes % (Manual) 4L, Monocytes % (Manual) 4, Eosinophils % (Manual) 0, Basophils % ( Manual) 0, Band Neutrophils 0, Platelet Estimate Adequate, Platelet Morphology Normal, Red Blood Cell Morphology Normal, Sodium Level 138, Potassium Level 4.3 , Chloride Level 102, Carbon Dioxide Level 29, Anion Gap 7, Blood Urea Nitrogen 17, Creatinine 0.8, Estimat Glomerular Filtration Rate > 60, Glucose Level 178H , Calcium Level 8.8, Total Bilirubin 0.4, Direct Bilirubin 0.2, Aspartate Amino Transf (AST/SGOT) 77H, Alanine Aminotransferase (ALT/SGPT) 76, Alkaline Phosphatase 145H, Total Protein 8.2, Albumin 2.3L Current Medications Medications (Trade) Dose Ordered Sig/Kaylan Route PRN Reason Start Time Stop Time Status Last Admin Dose Admin Acetaminophen (Tylenol) 500 mg Q6H PRN ORAL For Pain 06/16/19 00:15 07/16/19 00:14 Acetaminophen (Tylenol) 650 mg Q6H PRN ORAL For Headache 06/16/19 03:00 07/16/19 02:59 06/26/19 09:35 Albuterol Sulfate (Proventil MDI) 2 puff Q6H PRN INH Shortness of Breath 06/16/19 03:00 09/14/19 02:59 Amlodipine Besylate (Norvasc) 5 mg DAILY NG 06/23/19 12:00 07/23/19 11:59 06/25/19 08:55 Aspirin (ASA) 81 mg DAILY ORAL 06/16/19 09:00 07/31/19 08:59 06/26/19 09:35 Docusate Sodium (Colace) 100 mg DAILY ORAL 06/16/19 09:00 07/16/19 08:59 06/26/19 09:34 Donepezil HCl (Aricept) 5 mg DAILY ORAL 06/16/19 09:00 07/16/19 08:59 06/26/19 09:35 Enoxaparin Sodium (Lovenox) 40 mg DAILY SUBQ 06/16/19 09:00 09/14/19 08:59 06/26/19 09:36 Hydralazine HCl (Apresoline) 25 mg Q4H PRN ORAL For blood pressure over 160 sy 06/22/19 13:30 09/20/19 13:29 Memantine (Namenda) 10 mg TWICE A DAY ORAL 06/16/19 09:00 07/16/19 08:59 06/26/19 17:24 Metoprolol Succinate (Toprol XL) 25 mg DAILY ORAL 06/19/19 19:15 09/17/19 19:14 06/26/19 09:35 Mirtazapine (Remeron) 15 mg BEDTIME ORAL 06/21/19 21:00 09/19/19 20:59 06/26/19 20:15 Ondansetron HCl (Zofran) 4 mg Q6H PRN IVP Nausea & Vomiting 06/16/19 03:00 07/16/19 02:59 Polyethylene Glycol (Miralax) 17 gm BEDTIME ORAL 06/17/19 21:00 07/17/19 20:59 06/26/19 20:15 Andrew Diaz MD Jun 26, 2019 23:58
[2019-06-27] VITALS: BP 132/59
--- NOTE | 2019-06-27 03:37 | NUR ---
NURSE NOTES: Patient is asleep lying semi-garcia's; resting comfortably. No signs of acute distress or pain noted at this time.
[2019-06-27 04:00] VITALS: BP 109/69
--- NOTE | 2019-06-27 06:40 | Hematology/Onc Progress Note ---
Assessment/Plan Assessment/Plan Assessment and Plan: # Leukopenia -- multiple etiologies could be related to underlying liver disease , medication-induced, infection versus viral syndrome, in this case likely due to COVID19+, and Hep C+ --> peripheral smear has been ordered and does not show significant abnormalities --> Medications have been reviewed --> Continue to monitor for improvement, trend cbc --> Hep panel and HIV have been ordered--> cw hep C++ exposure --> US abd ordered to r/o cirrhosis and hepatosplenomegaly --> none noted --> reverse isolation if ANC is <2000 --> Give neupogen if ANC <1000 --> 06/22 off abx, repeat covid pending # Suspected 2019 novel coronavirus infection --> per id, on plaq, abx --> iso --> pulm eval recs noted --> 06/22 off abx per id # Pneumonia --> on abx # Elevated troponin ==> nstemi per cards # Elevated LFTs --> likely hep C related # Dvt ppx lovenox sq The timing of this note does not necessarily reflect the time of the patient was seen. Greatly appreciate consultation. Subjective Constitutional: Denies: no symptoms, chills, fever, malaise, weakness, other HEENT: Denies: no symptoms, eye pain, blurred vision, tearing, double vision, ear pain, ear discharge, nose pain, nose congestion, throat pain, throat swelling, mouth pain, mouth swelling, other Cardiovascular: Denies: no symptoms, chest pain, edema, irregular heart rate, lightheadedness, palpitations, syncope, other Respiratory: Denies: no symptoms, cough, shortness of breath, SOB with excertion, SOB at rest, sputum, wheezing, other Gastrointestinal/Abdominal: Denies: no symptoms, abdomen distended, abdominal pain, black stools, tarry stools, blood in stool, constipated, diarrhea, difficulty swallowing, nausea, poor appetite, poor fluid intake, rectal bleeding , vomiting, other Genitourinary: Denies: no symptoms, burning, discharge, frequency, flank pain, hematuria, incontinence, pain, urgency, other Neurologic/Psychiatric: Denies: no symptoms, anxiety, depressed, emotional problems, headache, numbness, paresthesia, pre-existing deficit, seizure, tingling, tremors, weakness, other Endocrine: Denies: no symptoms, excessive sweating, flushing, intolerance to cold, intolerance to heat, increased hunger, increased thirst, increased urine, unexplained weight gain, unexplained weight loss, other Allergies: Coded Allergies: No Known Allergies (Unverified , 06/15/19) Subjective 06/20 breathing is better, on iso for covid 19, wbc improved 06/21 labs better, no bleeding, no f/c, meds noted, hcv+ 06/22 restraints, off abx, repeat covid pending, nc 06/23 no bleeding, labs noted, no night sweats, cbc reviewed, on 2l nc 06/25 remains on glucerna, have ordered for labs, no bleeding 06/26 remains on 2lnc as for covid infection, for iso Objective Objective Current Medications Medications (Trade) Dose Ordered Sig/Kaylan Route PRN Reason Start Time Stop Time Status Last Admin Dose Admin Acetaminophen (Tylenol) 500 mg Q6H PRN ORAL For Pain 06/16/19 00:15 07/16/19 00:14 Acetaminophen (Tylenol) 650 mg Q6H PRN ORAL For Headache 06/16/19 03:00 07/16/19 02:59 06/26/19 09:35 Albuterol Sulfate (Proventil MDI) 2 puff Q6H PRN INH Shortness of Breath 06/16/19 03:00 09/14/19 02:59 Amlodipine Besylate (Norvasc) 5 mg DAILY NG 06/23/19 12:00 07/23/19 11:59 06/25/19 08:55 Aspirin (ASA) 81 mg DAILY ORAL 06/16/19 09:00 07/31/19 08:59 06/26/19 09:35 Docusate Sodium (Colace) 100 mg DAILY ORAL 06/16/19 09:00 07/16/19 08:59 06/26/19 09:34 Donepezil HCl (Aricept) 5 mg DAILY ORAL 06/16/19 09:00 07/16/19 08:59 06/26/19 09:35 Enoxaparin Sodium (Lovenox) 40 mg DAILY SUBQ 06/16/19 09:00 09/14/19 08:59 06/26/19 09:36 Hydralazine HCl (Apresoline) 25 mg Q4H PRN ORAL For blood pressure over 160 sy 06/22/19 13:30 09/20/19 13:29 Memantine (Namenda) 10 mg TWICE A DAY ORAL 06/16/19 09:00 07/16/19 08:59 06/26/19 17:24 Metoprolol Succinate (Toprol XL) 25 mg DAILY ORAL 06/19/19 19:15 09/17/19 19:14 06/26/19 09:35 Mirtazapine (Remeron) 15 mg BEDTIME ORAL 06/21/19 21:00 09/19/19 20:59 06/26/19 20:15 Ondansetron HCl (Zofran) 4 mg Q6H PRN IVP Nausea & Vomiting 06/16/19 03:00 07/16/19 02:59 Polyethylene Glycol (Miralax) 17 gm BEDTIME ORAL 06/17/19 21:00 07/17/19 20:59 06/26/19 20:15 Last 24 Hour Vital Signs Date Time Temp Pulse Resp B/P (MAP) Pulse Ox O2 Delivery O2 Flow Rate FiO2 06/27/19 00:00 84 06/27/19 00:00 97.5 78 18 132/59 (83) 95 06/26/19 21:00 Nasal Cannula 2.0 06/26/19 20:00 97.7 82 18 125/62 (83) 90 06/26/19 20:00 79 06/26/19 16:00 72 06/26/19 16:00 97.9 74 19 108/63 (78) 94 06/26/19 12:00 97.3 87 19 101/64 (76) 96 06/26/19 12:00 75 06/26/19 09:35 101 111/73 06/26/19 09:00 101 111/73 06/26/19 09:00 Nasal Cannula 2.0 06/26/19 08:00 100.4 101 19 111/73 (86) 95 06/26/19 08:00 98 06/26/19 04:00 98.0 85 19 146/81 (102) 94 06/26/19 04:00 106 06/26/19 00:00 97.5 81 18 144/76 (98) 95 06/26/19 00:00 77 06/25/19 21:00 Nasal Cannula 2.0 06/25/19 20:00 97.9 84 18 156/82 (106) 94 06/25/19 20:00 72 06/25/19 16:00 74 06/25/19 16:00 96.4 84 17 139/76 (97) 94 06/25/19 12:00 63 06/25/19 12:00 97.3 68 17 110/69 (83) 95 06/25/19 09:00 Nasal Cannula 2.0 06/25/19 08:56 89 134/75 06/25/19 08:55 89 134/75 06/25/19 08:00 97.2 89 17 134/75 (94) 95 06/25/19 08:00 68 Intake and Output 06/26/19 06/27/19 19:00 07:00 Intake Total 430 ml 401 ml Balance 430 ml 401 ml Free Water 100 ml Tube Feeding 430 ml 301 ml # Voids 4 2 Labs Test 06/24/19 08:30 06/25/19 06:20 06/26/19 07:10 White Blood Count 10.2 K/UL (4.8-10.8) 9.4 K/UL (4.8-10.8) 10.9 K/UL (4.8-10.8) Red Blood Count 4.83 M/UL (4.70-6.10) 4.43 M/UL (4.70-6.10) 4.66 M/UL (4.70-6.10) Hemoglobin 14.6 G/DL (14.2-18.0) 13.5 G/DL (14.2-18.0) 14.0 G/DL (14.2-18.0) Hematocrit 43.0 % (42.0-52.0) 40.2 % (42.0-52.0) 41.7 % (42.0-52.0) Mean Corpuscular Volume 89 FL (80-99) 91 FL (80-99) 89 FL (80-99) Mean Corpuscular Hemoglobin 30.1 PG (27.0-31.0) 30.5 PG (27.0-31.0) 30.0 PG (27.0-31.0) Mean Corpuscular Hemoglobin Concent 33.9 G/DL (32.0-36.0) 33.7 G/DL (32.0-36.0) 33.6 G/DL (32.0-36.0) Red Cell Distribution Width 12.5 % (11.6-14.8) 12.7 % (11.6-14.8) 12.5 % (11.6-14.8) Platelet Count 432 K/UL (150-450) 369 K/UL (150-450) 409 K/UL (150-450) Mean Platelet Volume 5.5 FL (6.5-10.1) 5.2 FL (6.5-10.1) 5.5 FL (6.5-10.1) Neutrophils (%) (Auto) % (45.0-75.0) 73.4 % (45.0-75.0) % (45.0-75.0) Lymphocytes (%) (Auto) % (20.0-45.0) 21.1 % (20.0-45.0) % (20.0-45.0) Monocytes (%) (Auto) % (1.0-10.0) 5.2 % (1.0-10.0) % (1.0-10.0) Eosinophils (%) (Auto) % (0.0-3.0) 0.1 % (0.0-3.0) % (0.0-3.0) Basophils (%) (Auto) % (0.0-2.0) 0.3 % (0.0-2.0) % (0.0-2.0) Differential Total Cells Counted 100 100 Neutrophils % (Manual) 87 % (45-75) 92 % (45-75) Lymphocytes % (Manual) 10 % (20-45) 4 % (20-45) Monocytes % (Manual) 3 % (1-10) 4 % (1-10) Eosinophils % (Manual) 0 % (0-3) 0 % (0-3) Basophils % (Manual) 0 % (0-2) 0 % (0-2) Band Neutrophils 0 % (0-8) 0 % (0-8) Platelet Estimate Adequate Adequate Platelet Morphology Normal Normal Red Blood Cell Morphology Normal Normal Sodium Level 135 MMOL/L (136-145) 140 MMOL/L (136-145) 138 MMOL/L (136-145) Potassium Level 4.0 MMOL/L (3.5-5.1) 4.6 MMOL/L (3.5-5.1) 4.3 MMOL/L (3.5-5.1) Chloride Level 101 MMOL/L (98-107) 104 MMOL/L (98-107) 102 MMOL/L (98-107) Carbon Dioxide Level 28 MMOL/L (21-32) 32 MMOL/L (21-32) 29 MMOL/L (21-32) Anion Gap 6 mmol/L (5-15) 4 mmol/L (5-15) 7 mmol/L (5-15) Blood Urea Nitrogen 15 mg/dL (7-18) 16 mg/dL (7-18) 17 mg/dL (7-18) Creatinine 0.7 MG/DL (0.55-1.30) 0.7 MG/DL (0.55-1.30) 0.8 MG/DL (0.55-1.30) Estimat Glomerular Filtration Rate > 60 mL/min (>60) > 60 mL/min (>60) > 60 mL/min (>60) Glucose Level 168 MG/DL (74-106) 109 MG/DL (74-106) 178 MG/DL (74-106) Calcium Level 8.5 MG/DL (8.5-10.1) 8.3 MG/DL (8.5-10.1) 8.8 MG/DL (8.5-10.1) Phosphorus Level 2.4 MG/DL (2.5-4.9) Total Bilirubin 0.5 MG/DL (0.2-1.0) 0.5 MG/DL (0.2-1.0) 0.4 MG/DL (0.2-1.0) Aspartate Amino Transf (AST/SGOT) 117 U/L (15-37) 83 U/L (15-37) 77 U/L (15-37) Alanine Aminotransferase (ALT/SGPT) 103 U/L (12-78) 85 U/L (12-78) 76 U/L (12-78) Alkaline Phosphatase 144 U/L (46-116) 145 U/L (46-116) 145 U/L (46-116) Total Protein 7.8 G/DL (6.4-8.2) 7.0 G/DL (6.4-8.2) 8.2 G/DL (6.4-8.2) Albumin 2.2 G/DL (3.4-5.0) 2.2 G/DL (3.4-5.0) 2.3 G/DL (3.4-5.0) Globulin 5.6 g/dL 4.8 g/dL Albumin/Globulin Ratio 0.4 (1.0-2.7) 0.5 (1.0-2.7) Direct Bilirubin 0.2 MG/DL (0.0-0.3) Height (Feet): 5 Height (Inches): 2.00 Weight (Pounds): 130 Objective Physical Exam General: Awake and somewhat confused, no acute distress HEENT: NC/AT. EOMI. Cardiovascular: RRR. S1 and S2 normal. No murmur appreciated Resp: Mild tachypnea, normal work of breathing. On 2 L nasal cannula. Abdomen: Abdomen is soft, nondistended. Nontender Skin: Intact. No abrasions, laceration MSK: Normal tone and bulk. Moving all extremities Neuro: Awake and somewhat confused. Poor historian Geraldo Galvez MD Jun 27, 2019 06:40
[2019-06-27 07:08] LABS: BASOPHILS % (AUTO) 0.6 % (0.0-2.0); EOSINOPHILS % (AUTO) 0.2 % (0.0-3.0); HEMOGLOBIN 13.2 G/DL (14.2-18.0); LYMPHOCYTES % (AUTO) 16.1 % (20.0-45.0); MEAN CORPUSCULAR VOLUME 90 FL (80-99); MONOCYTES % (AUTO) 7.3 % (1.0-10.0); NEUTROPHILS % (AUTO) 75.7 % (45.0-75.0); PLATELET COUNT 376 K/UL (150-450); RED BLOOD COUNT 4.34 M/UL (4.70-6.10); RED CELL DISTRIBUTION WIDTH 12.8 % (11.6-14.8); WHITE BLOOD COUNT 7.7 K/UL (4.8-10.8)
--- NOTE | 2019-06-27 07:35 | NUR ---
HAND-OFF: Report given to MANOLO Hogue. Patient is asleep lying semi-garcia's; resting comfortably. NG tube in place. Glucerna 1.5 running at 43 mls/hr.
[2019-06-27 07:50] LABS: ALANINE AMINOTRANSFERASE 55 U/L (12-78); ALBUMIN/GLOBULIN RATIO 0.4 (1.0-2.7); ALKALINE PHOSPHATASE 148 U/L (46-116); ANION GAP 6 mmol/L (5-15); ASPARTATE AMINO TRANSFERASE 55 U/L (15-37); BILIRUBIN,TOTAL 0.4 MG/DL (0.2-1.0); BLOOD UREA NITROGEN 21 mg/dL (7-18); CALCIUM 8.6 MG/DL (8.5-10.1); CARBON DIOXIDE 31 MMOL/L (21-32); CHLORIDE 104 MMOL/L (98-107); CREATININE 0.8 MG/DL (0.55-1.30); POTASSIUM 4.5 MMOL/L (3.5-5.1); SODIUM 141 MMOL/L (136-145)
[2019-06-27 08:00] VITALS: BP 135/74
--- NOTE | 2019-06-27 08:31 | General Progress Note ---
Assessment/Plan Status: progressing, unchanged Assessment/Plan: 1. History of dementia. 2. CHF. 3. Hypertension. 4. BPH. 5. Constipation. 6. elevated LFTS 7. AMI 8. gallstones improving LFTS hep C positive>>> will send HCV RNA and patient needs out patient fu for treatment fu cardiology repeat labs in am ngt in place ngTF on COVID isolation Subjective ROS Limited/Unobtainable: No Allergies: Coded Allergies: No Known Allergies (Unverified , 06/15/19) Objective Last 24 Hour Vital Signs Date Time Temp Pulse Resp B/P (MAP) Pulse Ox O2 Delivery O2 Flow Rate FiO2 06/27/19 04:00 97.1 84 18 109/69 (82) 94 06/27/19 04:00 85 06/27/19 00:00 84 06/27/19 00:00 97.5 78 18 132/59 (83) 95 06/26/19 21:00 Nasal Cannula 2.0 06/26/19 20:00 97.7 82 18 125/62 (83) 90 06/26/19 20:00 79 06/26/19 16:00 72 06/26/19 16:00 97.9 74 19 108/63 (78) 94 06/26/19 12:00 97.3 87 19 101/64 (76) 96 06/26/19 12:00 75 06/26/19 09:35 101 111/73 06/26/19 09:00 101 111/73 06/26/19 09:00 Nasal Cannula 2.0 Intake and Output 06/26/19 06/27/19 19:00 07:00 Intake Total 430 ml 616 ml Balance 430 ml 616 ml Free Water 100 ml Tube Feeding 430 ml 516 ml # Voids 4 2 # Bowel Movements 1 Laboratory Tests 06/27/19 06:08: White Blood Count 7.7, Red Blood Count 4.34L, Hemoglobin 13.2L, Hematocrit 39.0L , Mean Corpuscular Volume 90, Mean Corpuscular Hemoglobin 30.3, Mean Corpuscular Hemoglobin Concent 33.7, Red Cell Distribution Width 12.8, Platelet Count 376, Mean Platelet Volume 5.8L, Neutrophils (%) (Auto) 75.7H, Lymphocytes (%) (Auto) 16.1L, Monocytes (%) (Auto) 7.3, Eosinophils (%) (Auto) 0.2, Basophils (%) (Auto) 0.6, Sodium Level 141, Potassium Level 4.5, Chloride Level 104, Carbon Dioxide Level 31, Anion Gap 6, Blood Urea Nitrogen 21H, Creatinine 0.8, Estimat Glomerular Filtration Rate > 60, Glucose Level 126H, Calcium Level 8.6, Total Bilirubin 0.4, Aspartate Amino Transf (AST/SGOT) 55H, Alanine Aminotransferase (ALT/SGPT) 55, Alkaline Phosphatase 148H, Total Protein 7.7, Albumin 2.0L, Globulin 5.7, Albumin/Globulin Ratio 0.4L Height (Feet): 5 Height (Inches): 2.00 Weight (Pounds): 130 General Appearance: no apparent distress EENT: normal ENT inspection Neck: supple Cardiovascular: normal rate Respiratory/Chest: decreased breath sounds Abdomen: normal bowel sounds, non tender, soft Extremities: non-tender Perry Quiroga MD Jun 27, 2019 08:31
[2019-06-27] MEDS: Aspirin Baby 81mg ORAL SCH (09:00)
[2019-06-27] MEDS: Metoprolol Succinate XL 25mg tab ORAL SCH (09:00)
[2019-06-27] MEDS: Donepezil 5mg Tab ORAL SCH (09:00)
[2019-06-27] MEDS: Docusate 100mg cap ORAL SCH (09:00)
[2019-06-27] MEDS: Enoxaparin 40mg Inj SUBQ SCH (09:00)
[2019-06-27] MEDS: Memantine 10mg tab ORAL SCH ×2 (09:00→18:21)
--- NOTE | 2019-06-27 10:13 | NUR ---
CASE MANAGEMENT:REVIEW 06/27/19 SI: COVID 19 PNEUMONIA 97.1 84 18 109/69 94% ON 2L/NC H/H-13.2/39.0 BUN+21 IS: NORVASC PO QD REMERON PO QHS TOPROL XL PO QD LOVENOX SQ QD ASA PO QD ARICEPT PO QD NAMENDA PO BID : TELEMETRY STATUS DCP: FROM [facility]
--- NOTE | 2019-06-27 10:17 | NUR ---
DISCHARGE PLANNING PATIENT IS FROM [facility] COVID 19 DETECTED ADDITIONAL COVID 19 TEST PENDING 06/22 AND 06/25 NOT STABLE FOR DISCHARGE DUE TO FEVER OF 100.4 ON 06/26/19 POSSIBLY ABLE TO DISCHARGE ON 06/29/19 IF AFEBRILE
[2019-06-27 12:00] VITALS: BP 135/78
--- NOTE | 2019-06-27 12:04 | Infectious Diseases Prog Note ---
Assessment/Plan Assessment/Plan IMPRESSION: COIVD19 Pneumonia, Cholelithiasis and elevated transaminase level, acidosis, dementia with behavioral problem. Dysphagia RECOMMENDATION: We will repeat COVID19 test Subjective ROS Limited/Unobtainable: Yes Constitutional: Denies: fever Allergies: Coded Allergies: No Known Allergies (Unverified , 06/15/19) Objective Vital Signs Last 24 Hour Vital Signs Date Time Temp Pulse Resp B/P (MAP) Pulse Ox O2 Delivery O2 Flow Rate FiO2 06/27/19 09:00 Nasal Cannula 2.0 06/27/19 09:00 85 109/69 06/27/19 09:00 85 109/69 06/27/19 08:00 98.4 87 18 135/74 (94) 94 06/27/19 08:00 79 06/27/19 04:00 97.1 84 18 109/69 (82) 94 06/27/19 04:00 85 06/27/19 00:00 84 06/27/19 00:00 97.5 78 18 132/59 (83) 95 06/26/19 21:00 Nasal Cannula 2.0 06/26/19 20:00 97.7 82 18 125/62 (83) 90 06/26/19 20:00 79 06/26/19 16:00 72 06/26/19 16:00 97.9 74 19 108/63 (78) 94 Height (Feet): 5 Height (Inches): 2.00 Weight (Pounds): 130 General Appearance: no acute distress HEENT: mucous membranes moist Respiratory/Chest: lungs clear Cardiovascular: normal rate Abdomen: soft, non tender, other - NG tube Extremities: no edema Neurologic/Psychiatric: disoriented Laboratory Tests Test 06/27/19 06:08 White Blood Count 7.7 K/UL (4.8-10.8) Red Blood Count 4.34 M/UL (4.70-6.10) L Hemoglobin 13.2 G/DL (14.2-18.0) L Hematocrit 39.0 % (42.0-52.0) L Mean Corpuscular Volume 90 FL (80-99) Mean Corpuscular Hemoglobin 30.3 PG (27.0-31.0) Mean Corpuscular Hemoglobin Concent 33.7 G/DL (32.0-36.0) Red Cell Distribution Width 12.8 % (11.6-14.8) Platelet Count 376 K/UL (150-450) Mean Platelet Volume 5.8 FL (6.5-10.1) L Neutrophils (%) (Auto) 75.7 % (45.0-75.0) H Lymphocytes (%) (Auto) 16.1 % (20.0-45.0) L Monocytes (%) (Auto) 7.3 % (1.0-10.0) Eosinophils (%) (Auto) 0.2 % (0.0-3.0) Basophils (%) (Auto) 0.6 % (0.0-2.0) Sodium Level 141 MMOL/L (136-145) Potassium Level 4.5 MMOL/L (3.5-5.1) Chloride Level 104 MMOL/L (98-107) Carbon Dioxide Level 31 MMOL/L (21-32) Anion Gap 6 mmol/L (5-15) Blood Urea Nitrogen 21 mg/dL (7-18) H Creatinine 0.8 MG/DL (0.55-1.30) Estimat Glomerular Filtration Rate > 60 mL/min (>60) Glucose Level 126 MG/DL (74-106) H Calcium Level 8.6 MG/DL (8.5-10.1) Phosphorus Level 3.0 MG/DL (2.5-4.9) Magnesium Level 2.4 MG/DL (1.8-2.4) Total Bilirubin 0.4 MG/DL (0.2-1.0) Aspartate Amino Transf (AST/SGOT) 55 U/L (15-37) H Alanine Aminotransferase (ALT/SGPT) 55 U/L (12-78) Alkaline Phosphatase 148 U/L (46-116) H Total Protein 7.7 G/DL (6.4-8.2) Albumin 2.0 G/DL (3.4-5.0) L Globulin 5.7 g/dL Albumin/Globulin Ratio 0.4 (1.0-2.7) L Current Medications Medications (Trade) Dose Ordered Sig/Kaylan Route PRN Reason Start Time Stop Time Status Last Admin Dose Admin Acetaminophen (Tylenol) 500 mg Q6H PRN ORAL For Pain 06/16/19 00:15 07/16/19 00:14 Acetaminophen (Tylenol) 650 mg Q6H PRN ORAL For Headache 06/16/19 03:00 07/16/19 02:59 06/26/19 09:35 Albuterol Sulfate (Proventil MDI) 2 puff Q6H PRN INH Shortness of Breath 06/16/19 03:00 09/14/19 02:59 Amlodipine Besylate (Norvasc) 5 mg DAILY NG 06/23/19 12:00 07/23/19 11:59 06/27/19 09:00 Aspirin (ASA) 81 mg DAILY ORAL 06/16/19 09:00 07/31/19 08:59 06/27/19 09:00 Docusate Sodium (Colace) 100 mg DAILY ORAL 06/16/19 09:00 07/16/19 08:59 06/27/19 09:00 Donepezil HCl (Aricept) 5 mg DAILY ORAL 06/16/19 09:00 07/16/19 08:59 06/27/19 09:00 Enoxaparin Sodium (Lovenox) 40 mg DAILY SUBQ 06/16/19 09:00 09/14/19 08:59 06/27/19 09:00 Hydralazine HCl (Apresoline) 25 mg Q4H PRN ORAL For blood pressure over 160 sy 06/22/19 13:30 09/20/19 13:29 Memantine (Namenda) 10 mg TWICE A DAY ORAL 06/16/19 09:00 07/16/19 08:59 06/27/19 09:00 Metoprolol Succinate (Toprol XL) 25 mg DAILY ORAL 06/19/19 19:15 09/17/19 19:14 06/27/19 09:00 Mirtazapine (Remeron) 15 mg BEDTIME ORAL 06/21/19 21:00 09/19/19 20:59 06/26/19 20:15 Ondansetron HCl (Zofran) 4 mg Q6H PRN IVP Nausea & Vomiting 06/16/19 03:00 07/16/19 02:59 Polyethylene Glycol (Miralax) 17 gm BEDTIME ORAL 06/17/19 21:00 07/17/19 20:59 06/26/19 20:15 Benigno Betancourt MD Jun 27, 2019 12:04
--- NOTE | 2019-06-27 12:19 | Nephrology Progress Note ---
Assessment/Plan Problem List: (1) Dehydration (2) Electrolyte imbalance (3) Elevated LFTs (4) HTN (hypertension) (5) Suspected 2019 novel coronavirus infection Assessment Electrolyte imbalance Dehydration and free water deficit Pneumonia suspected COVID-19 infection Elevated troponin Dementia Cholelithiasis and elevated liver enzymes BPH Hypertension Plan DC IV fluid and PO KCL Add Norvasc Hydralazine as needed for blood pressure over 160 systolic Monitor electrolyte Continue per consultants Urine analysis ordered as none is available since admission Per orders Subjective ROS Limited/Unobtainable: No Constitutional: Reports: malaise, weakness Objective Objective Last 24 Hour Vital Signs Date Time Temp Pulse Resp B/P (MAP) Pulse Ox O2 Delivery O2 Flow Rate FiO2 06/27/19 09:00 Nasal Cannula 2.0 06/27/19 09:00 85 109/69 06/27/19 09:00 85 109/69 06/27/19 08:00 98.4 87 18 135/74 (94) 94 06/27/19 08:00 79 06/27/19 04:00 97.1 84 18 109/69 (82) 94 06/27/19 04:00 85 06/27/19 00:00 84 06/27/19 00:00 97.5 78 18 132/59 (83) 95 06/26/19 21:00 Nasal Cannula 2.0 06/26/19 20:00 97.7 82 18 125/62 (83) 90 06/26/19 20:00 79 06/26/19 16:00 72 06/26/19 16:00 97.9 74 19 108/63 (78) 94 Intake and Output 06/26/19 06/27/19 19:00 07:00 Intake Total 430 ml 616 ml Balance 430 ml 616 ml Free Water 100 ml Tube Feeding 430 ml 516 ml # Voids 4 2 # Bowel Movements 1 Laboratory Tests 06/27/19 06:08: White Blood Count 7.7, Red Blood Count 4.34L, Hemoglobin 13.2L, Hematocrit 39.0L , Mean Corpuscular Volume 90, Mean Corpuscular Hemoglobin 30.3, Mean Corpuscular Hemoglobin Concent 33.7, Red Cell Distribution Width 12.8, Platelet Count 376, Mean Platelet Volume 5.8L, Neutrophils (%) (Auto) 75.7H, Lymphocytes (%) (Auto) 16.1L, Monocytes (%) (Auto) 7.3, Eosinophils (%) (Auto) 0.2, Basophils (%) (Auto) 0.6, Sodium Level 141, Potassium Level 4.5, Chloride Level 104, Carbon Dioxide Level 31, Anion Gap 6, Blood Urea Nitrogen 21H, Creatinine 0.8, Estimat Glomerular Filtration Rate > 60, Glucose Level 126H, Calcium Level 8.6, Phosphorus Level 3.0, Magnesium Level 2.4, Total Bilirubin 0.4, Aspartate Amino Transf (AST/SGOT) 55H, Alanine Aminotransferase (ALT/SGPT) 55, Alkaline Phosphatase 148H, Total Protein 7.7, Albumin 2.0L, Globulin 5.7, Albumin/ Globulin Ratio 0.4L Height (Feet): 5 Height (Inches): 2.00 Weight (Pounds): 130 General Appearance: no apparent distress EENT: other Cardiovascular: tachycardia Respiratory/Chest: decreased breath sounds Abdomen: soft Drew Gonzalez MD Jun 27, 2019 12:19
--- NOTE | 2019-06-27 14:00 | Diagnostic Imaging Report ---
Indication: Cough Technique: One view of the chest Comparison: 06/20/2019 Findings: Bilateral interstitial and airspace infiltrates, right greater than left, appear slightly worse than on the prior exam. There is suggestion of increased pleural fluid on the left. The heart size is upper limits normal. There is a nasogastric tube in good position, tip projected at the level of the gastric antrum near the pylorus Impression: Over one week, slight worsening of bilateral interstitial infiltrates versus edema Satisfactory nasogastric intubation
[2019-06-27 16:00] VITALS: BP 154/77
--- NOTE | 2019-06-27 19:37 | NUR ---
NURSE NOTES: Pt received from MANOLO Larson alert and oriented to name only, confused. On 2L NC saturating at 97% with no acute s/s of distress noted. IV site asymptomatic and patent on L fa 20g, saline lock. Bilateral soft wrist restraints on - no swelling or redness noted, skin intact. Bed alarm on, bed in lowest position. Call light and belongings within reach.
[2019-06-27 20:00] VITALS: BP 134/74
[2019-06-27] MEDS: Miralax 17gm pkt ORAL SCH (20:14)
--- NOTE | 2019-06-27 21:57 | General Progress Note ---
Assessment/Plan Problem List: (1) Elevated troponin ICD Codes: R79.89 - Other specified abnormal findings of blood chemistry SNOMED: 444977730, 190581661, 341623732 (2) Elevated LFTs ICD Codes: R79.89 - Other specified abnormal findings of blood chemistry SNOMED: 063610789, 274405660, 591568258 (3) Pneumonia ICD Codes: J18.9 - Pneumonia, unspecified organism SNOMED: 696106684, 243696387, 455683296 (4) Suspected 2019 novel coronavirus infection ICD Codes: R68.89 - Other general symptoms and signs SNOMED: 126613355 Status: progressing, unchanged Assessment/Plan: covid positive pna resp insuff supportive therapy afebrile reviewed chart and labs Subjective ROS Limited/Unobtainable: Yes Allergies: Coded Allergies: No Known Allergies (Unverified , 06/15/19) Objective Last 24 Hour Vital Signs Date Time Temp Pulse Resp B/P (MAP) Pulse Ox O2 Delivery O2 Flow Rate FiO2 06/27/19 16:00 82 06/27/19 16:00 98.2 87 20 154/77 (102) 97 06/27/19 12:00 85 06/27/19 12:00 97.1 85 18 135/78 (97) 95 06/27/19 09:00 Nasal Cannula 2.0 06/27/19 09:00 85 109/69 06/27/19 09:00 85 109/69 06/27/19 08:00 98.4 87 18 135/74 (94) 94 06/27/19 08:00 79 06/27/19 04:00 97.1 84 18 109/69 (82) 94 06/27/19 04:00 85 06/27/19 00:00 84 06/27/19 00:00 97.5 78 18 132/59 (83) 95 Intake and Output 06/26/19 06/27/19 19:00 07:00 Intake Total 430 ml 616 ml Balance 430 ml 616 ml Free Water 100 ml Tube Feeding 430 ml 516 ml # Voids 4 2 # Bowel Movements 1 Laboratory Tests 06/27/19 06:08: White Blood Count 7.7, Red Blood Count 4.34L, Hemoglobin 13.2L, Hematocrit 39.0L , Mean Corpuscular Volume 90, Mean Corpuscular Hemoglobin 30.3, Mean Corpuscular Hemoglobin Concent 33.7, Red Cell Distribution Width 12.8, Platelet Count 376, Mean Platelet Volume 5.8L, Neutrophils (%) (Auto) 75.7H, Lymphocytes (%) (Auto) 16.1L, Monocytes (%) (Auto) 7.3, Eosinophils (%) (Auto) 0.2, Basophils (%) (Auto) 0.6, Sodium Level 141, Potassium Level 4.5, Chloride Level 104, Carbon Dioxide Level 31, Anion Gap 6, Blood Urea Nitrogen 21H, Creatinine 0.8, Estimat Glomerular Filtration Rate > 60, Glucose Level 126H, Calcium Level 8.6, Phosphorus Level 3.0, Magnesium Level 2.4, Total Bilirubin 0.4, Aspartate Amino Transf (AST/SGOT) 55H, Alanine Aminotransferase (ALT/SGPT) 55, Alkaline Phosphatase 148H, Total Protein 7.7, Albumin 2.0L, Globulin 5.7, Albumin/ Globulin Ratio 0.4L Height (Feet): 5 Height (Inches): 2.00 Weight (Pounds): 130 Gorge Malhotra MD Jun 27, 2019 21:57
--- NOTE | 2019-06-27 23:58 | Cardiology Progress Note ---
Assessment/Plan Assessment/Plan 1. Dyspnea due to possibly combination of COVID-19 pneumonia in addition to with acute HFpEF, continue lasix and metoprolol. LVEF is at 65%. 2. Possible [id number] myocardial infarction or elevated troponin I level could be secondary to myonecrosis due to CHF. 3. HCV infection. Subjective Subjective Sinus rhythm at rate of 76. Objective Last 24 Hour Vital Signs Date Time Temp Pulse Resp B/P (MAP) Pulse Ox O2 Delivery O2 Flow Rate FiO2 06/27/19 21:00 Nasal Cannula 2.0 06/27/19 20:00 76 06/27/19 20:00 98.1 85 20 134/74 (94) 97 06/27/19 16:00 82 06/27/19 16:00 98.2 87 20 154/77 (102) 97 06/27/19 12:00 85 06/27/19 12:00 97.1 85 18 135/78 (97) 95 06/27/19 09:00 Nasal Cannula 2.0 06/27/19 09:00 85 109/69 06/27/19 09:00 85 109/69 06/27/19 08:00 98.4 87 18 135/74 (94) 94 06/27/19 08:00 79 06/27/19 04:00 97.1 84 18 109/69 (82) 94 06/27/19 04:00 85 06/27/19 00:00 84 06/27/19 00:00 97.5 78 18 132/59 (83) 95 Intake and Output 06/26/19 06/27/19 19:00 07:00 Intake Total 430 ml 616 ml Balance 430 ml 616 ml Free Water 100 ml Tube Feeding 430 ml 516 ml # Voids 4 2 # Bowel Movements 1 2D Echo: LVEF 65%, Grade I LVDD. Laboratory Tests Test 06/27/19 06:08 White Blood Count 7.7 K/UL (4.8-10.8) Red Blood Count 4.34 M/UL (4.70-6.10) L Hemoglobin 13.2 G/DL (14.2-18.0) L Hematocrit 39.0 % (42.0-52.0) L Mean Corpuscular Volume 90 FL (80-99) Mean Corpuscular Hemoglobin 30.3 PG (27.0-31.0) Mean Corpuscular Hemoglobin Concent 33.7 G/DL (32.0-36.0) Red Cell Distribution Width 12.8 % (11.6-14.8) Platelet Count 376 K/UL (150-450) Mean Platelet Volume 5.8 FL (6.5-10.1) L Neutrophils (%) (Auto) 75.7 % (45.0-75.0) H Lymphocytes (%) (Auto) 16.1 % (20.0-45.0) L Monocytes (%) (Auto) 7.3 % (1.0-10.0) Eosinophils (%) (Auto) 0.2 % (0.0-3.0) Basophils (%) (Auto) 0.6 % (0.0-2.0) Sodium Level 141 MMOL/L (136-145) Potassium Level 4.5 MMOL/L (3.5-5.1) Chloride Level 104 MMOL/L (98-107) Carbon Dioxide Level 31 MMOL/L (21-32) Anion Gap 6 mmol/L (5-15) Blood Urea Nitrogen 21 mg/dL (7-18) H Creatinine 0.8 MG/DL (0.55-1.30) Estimat Glomerular Filtration Rate > 60 mL/min (>60) Glucose Level 126 MG/DL (74-106) H Calcium Level 8.6 MG/DL (8.5-10.1) Phosphorus Level 3.0 MG/DL (2.5-4.9) Magnesium Level 2.4 MG/DL (1.8-2.4) Total Bilirubin 0.4 MG/DL (0.2-1.0) Aspartate Amino Transf (AST/SGOT) 55 U/L (15-37) H Alanine Aminotransferase (ALT/SGPT) 55 U/L (12-78) Alkaline Phosphatase 148 U/L (46-116) H Total Protein 7.7 G/DL (6.4-8.2) Albumin 2.0 G/DL (3.4-5.0) L Globulin 5.7 g/dL Albumin/Globulin Ratio 0.4 (1.0-2.7) L Objective HEENT: Atraumatic and normocephalic. Anicteric. Pupils are equal, round, and reactive to light and accommodation. Extraocular muscles intact. NECK: JVP is less than 5 cm. No carotid bruit. Carotid upstroke is 2+ bilaterally. CARDIOVASCULAR: Normal S1 and S2. Regular rate and rhythm. No murmurs, gallops, or rubs. PMI is at fourth intercostal space at midclavicular line. LUNGS: Diminished breath sounds in both bases with associated crackles. ABDOMEN: Soft, nontender, and nondistended. No hepatosplenomegaly. Positive bowel sounds. EXTREMITIES: No evidence of edema, clubbing, or cyanosis. Rolf Moreno MD Jun 27, 2019 23:58
[2019-06-28] VITALS: BP 137/78
--- NOTE | 2019-06-28 01:47 | Pulmonology Progress Note ---
Assessment/Plan Assessment/Plan Pulmonary Progress Note HPI: Patient is a 88-year-old male history of Dementia, Congestive Heart Failure , [facility]onia, COVID 19 positive, noted to have fever and shortness of breath, chest congestion and tightness for 2 days. Noted to be confused in the ED. Has been febrile with low-grade temperatures for the past 2 days. No vomiting or diarrhea or abdominal pain. Stable O2 requirements - 2L NC, stable Pulmonary Status clinically Slight worsening of infiltrates on CXR Seen on 06/27/2019 PMH: Dementia, Congestive Heart Failure Social Hx: [facility] Resident FHx: [place] Allergies: No Known Allergies All Other Systems: limited - AMS Physical Exam Vital signs noted General: Awake and somewhat confused, no acute distress HEENT: NC/AT. EOMI. Cardiovascular: RRR. S1 and S2 normal. No murmur appreciated Resp: Mild tachypnea, normal work of breathing. On 2 L nasal cannula. No cough Abdomen: Abdomen is soft, nondistended. Nontender Skin: Intact. No abrasions, laceration or rash noted MSK: Normal tone and bulk. Moving all extremities. No obvious deformity. Neuro: Awake and somewhat confused. Poor historian. No focal signs Impression: Pneumonia Suspected 2019 novel coronavirus infection Elevated troponin Elevated LFTs Lymphopenia Dementia Congestive Heart Failure [facility] Resident Plan Antibiotics/antivirals per ID O2 PRN Albuterol MDI PRN PPX - Lovenox ASA Monitor labs - hypokalemia - s/p supplementation Monitor cultures/viral studies Ultrasound of the abdomen pending. Isolation for suspected COVID-19 infection Laboratory Tests noted EKG Rate: normal Rhythm: NSR ST Segments: no acute changes Sinus rhythm, left axis deviation. Occasional PACs. T wave inversions, no ST segment changes Chest X-Ray: Consolidations in the left lower lobe may represent an early pneumonia. No effusion. Current CXR slight worsening of infiltrates . Subjective ROS Limited/Unobtainable: No Constitutional: Denies: fever Respiratory: Reports: shortness of breath Allergies: Coded Allergies: No Known Allergies (Unverified , 06/15/19) Objective Last 24 Hour Vital Signs Date Time Temp Pulse Resp B/P (MAP) Pulse Ox O2 Delivery O2 Flow Rate FiO2 06/28/19 00:00 97.7 74 20 137/78 (97) 97 06/28/19 00:00 74 06/27/19 21:00 Nasal Cannula 2.0 06/27/19 20:00 76 06/27/19 20:00 98.1 85 20 134/74 (94) 97 06/27/19 16:00 82 06/27/19 16:00 98.2 87 20 154/77 (102) 97 06/27/19 12:00 85 06/27/19 12:00 97.1 85 18 135/78 (97) 95 06/27/19 09:00 Nasal Cannula 2.0 06/27/19 09:00 85 109/69 06/27/19 09:00 85 109/69 06/27/19 08:00 98.4 87 18 135/74 (94) 94 06/27/19 08:00 79 06/27/19 04:00 97.1 84 18 109/69 (82) 94 06/27/19 04:00 85 Intake and Output 06/27/19 06/28/19 19:00 07:00 # Voids 3 # Bowel Movements 1 General Appearance: no acute distress HEENT: mucous membranes moist Abdomen: soft, non tender, other - NG tube Extremities: no edema Neurologic/Psychiatric: disoriented Laboratory Tests 06/27/19 06:08: White Blood Count 7.7, Red Blood Count 4.34L, Hemoglobin 13.2L, Hematocrit 39.0L , Mean Corpuscular Volume 90, Mean Corpuscular Hemoglobin 30.3, Mean Corpuscular Hemoglobin Concent 33.7, Red Cell Distribution Width 12.8, Platelet Count 376, Mean Platelet Volume 5.8L, Neutrophils (%) (Auto) 75.7H, Lymphocytes (%) (Auto) 16.1L, Monocytes (%) (Auto) 7.3, Eosinophils (%) (Auto) 0.2, Basophils (%) (Auto) 0.6, Sodium Level 141, Potassium Level 4.5, Chloride Level 104, Carbon Dioxide Level 31, Anion Gap 6, Blood Urea Nitrogen 21H, Creatinine 0.8, Estimat Glomerular Filtration Rate > 60, Glucose Level 126H, Calcium Level 8.6, Phosphorus Level 3.0, Magnesium Level 2.4, Total Bilirubin 0.4, Aspartate Amino Transf (AST/SGOT) 55H, Alanine Aminotransferase (ALT/SGPT) 55, Alkaline Phosphatase 148H, Total Protein 7.7, Albumin 2.0L, Globulin 5.7, Albumin/ Globulin Ratio 0.4L Current Medications Medications (Trade) Dose Ordered Sig/Kaylan Route PRN Reason Start Time Stop Time Status Last Admin Dose Admin Acetaminophen (Tylenol) 500 mg Q6H PRN ORAL For Pain 06/16/19 00:15 07/16/19 00:14 Acetaminophen (Tylenol) 650 mg Q6H PRN ORAL For Headache 06/16/19 03:00 07/16/19 02:59 06/26/19 09:35 Albuterol Sulfate (Proventil MDI) 2 puff Q6H PRN INH Shortness of Breath 06/16/19 03:00 09/14/19 02:59 Amlodipine Besylate (Norvasc) 5 mg DAILY NG 06/23/19 12:00 07/23/19 11:59 06/27/19 09:00 Aspirin (ASA) 81 mg DAILY ORAL 06/16/19 09:00 07/31/19 08:59 06/27/19 09:00 Docusate Sodium (Colace) 100 mg DAILY ORAL 06/16/19 09:00 07/16/19 08:59 06/27/19 09:00 Donepezil HCl (Aricept) 5 mg DAILY ORAL 06/16/19 09:00 07/16/19 08:59 06/27/19 09:00 Enoxaparin Sodium (Lovenox) 40 mg DAILY SUBQ 06/16/19 09:00 09/14/19 08:59 06/27/19 09:00 Hydralazine HCl (Apresoline) 25 mg Q4H PRN ORAL For blood pressure over 160 sy 06/22/19 13:30 09/20/19 13:29 Memantine (Namenda) 10 mg TWICE A DAY ORAL 06/16/19 09:00 07/16/19 08:59 06/27/19 18:21 Metoprolol Succinate (Toprol XL) 25 mg DAILY ORAL 06/19/19 19:15 09/17/19 19:14 06/27/19 09:00 Mirtazapine (Remeron) 15 mg BEDTIME ORAL 06/21/19 21:00 09/19/19 20:59 06/27/19 20:14 Ondansetron HCl (Zofran) 4 mg Q6H PRN IVP Nausea & Vomiting 06/16/19 03:00 07/16/19 02:59 Polyethylene Glycol (Miralax) 17 gm BEDTIME ORAL 06/17/19 21:00 07/17/19 20:59 06/27/19 20:14 Andrew Diaz MD Jun 28, 2019 01:47
[2019-06-28 04:00] VITALS: BP 144/95
--- NOTE | 2019-06-28 06:02 | Hematology/Onc Progress Note ---
Assessment/Plan Assessment/Plan Assessment and Plan: # Leukopenia -- multiple etiologies could be related to underlying liver disease , medication-induced, infection versus viral syndrome, in this case likely due to COVID19+, and Hep C+ --> peripheral smear has been ordered and does not show significant abnormalities --> Medications have been reviewed --> Continue to monitor for improvement, trend cbc --> Hep panel and HIV have been ordered--> cw hep C++ exposure --> US abd ordered to r/o cirrhosis and hepatosplenomegaly --> none noted --> reverse isolation if ANC is <2000 --> Give neupogen if ANC <1000 --> 06/22 off abx, repeat covid pending # Suspected 2019 novel coronavirus infection --> per id, on plaq, abx --> iso --> pulm eval recs noted --> 06/22 off abx per id # Pneumonia --> on abx --> oxygen prn --> per id # Elevated troponin ==> nstemi per cards # Elevated LFTs --> likely hep C related # Dvt ppx lovenox sq The timing of this note does not necessarily reflect the time of the patient was seen. Greatly appreciate consultation. Subjective Constitutional: Denies: no symptoms, chills, fever, malaise, weakness, other HEENT: Denies: no symptoms, eye pain, blurred vision, tearing, double vision, ear pain, ear discharge, nose pain, nose congestion, throat pain, throat swelling, mouth pain, mouth swelling, other Cardiovascular: Denies: no symptoms, chest pain, edema, irregular heart rate, lightheadedness, palpitations, syncope, other Respiratory: Denies: no symptoms, cough, shortness of breath, SOB with excertion, SOB at rest, sputum, wheezing, other Genitourinary: Denies: no symptoms, burning, discharge, frequency, flank pain, hematuria, incontinence, pain, urgency, other Neurologic/Psychiatric: Denies: no symptoms, anxiety, depressed, emotional problems, headache, numbness, paresthesia, pre-existing deficit, seizure, tingling, tremors, weakness, other Endocrine: Denies: no symptoms, excessive sweating, flushing, intolerance to cold, intolerance to heat, increased hunger, increased thirst, increased urine, unexplained weight gain, unexplained weight loss, other Hematologic/Lymphatic: Denies: no symptoms, anemia, easy bleeding, easy bruising, adenopathy, other Allergies: Coded Allergies: No Known Allergies (Unverified , 06/15/19) Subjective 06/20 breathing is better, on iso for covid 19, wbc improved 06/21 labs better, no bleeding, no f/c, meds noted, hcv+ 06/22 restraints, off abx, repeat covid pending, nc 06/23 no bleeding, labs noted, no night sweats, cbc reviewed, on 2l nc 06/25 remains on glucerna, have ordered for labs, no bleeding 06/26 remains on 2lnc as for covid infection, for iso 06/27 is on 2lnc, no bleeding, labs reviewed, no night sweats Objective Objective Current Medications Medications (Trade) Dose Ordered Sig/Kaylan Route PRN Reason Start Time Stop Time Status Last Admin Dose Admin Acetaminophen (Tylenol) 500 mg Q6H PRN ORAL For Pain 06/16/19 00:15 07/16/19 00:14 Acetaminophen (Tylenol) 650 mg Q6H PRN ORAL For Headache 06/16/19 03:00 07/16/19 02:59 06/26/19 09:35 Albuterol Sulfate (Proventil MDI) 2 puff Q6H PRN INH Shortness of Breath 06/16/19 03:00 09/14/19 02:59 Amlodipine Besylate (Norvasc) 5 mg DAILY NG 06/23/19 12:00 07/23/19 11:59 06/27/19 09:00 Aspirin (ASA) 81 mg DAILY ORAL 06/16/19 09:00 07/31/19 08:59 06/27/19 09:00 Docusate Sodium (Colace) 100 mg DAILY ORAL 06/16/19 09:00 07/16/19 08:59 06/27/19 09:00 Donepezil HCl (Aricept) 5 mg DAILY ORAL 06/16/19 09:00 07/16/19 08:59 06/27/19 09:00 Enoxaparin Sodium (Lovenox) 40 mg DAILY SUBQ 06/16/19 09:00 09/14/19 08:59 06/27/19 09:00 Hydralazine HCl (Apresoline) 25 mg Q4H PRN ORAL For blood pressure over 160 sy 06/22/19 13:30 09/20/19 13:29 Memantine (Namenda) 10 mg TWICE A DAY ORAL 06/16/19 09:00 07/16/19 08:59 06/27/19 18:21 Metoprolol Succinate (Toprol XL) 25 mg DAILY ORAL 06/19/19 19:15 09/17/19 19:14 06/27/19 09:00 Mirtazapine (Remeron) 15 mg BEDTIME ORAL 06/21/19 21:00 09/19/19 20:59 06/27/19 20:14 Ondansetron HCl (Zofran) 4 mg Q6H PRN IVP Nausea & Vomiting 06/16/19 03:00 07/16/19 02:59 Polyethylene Glycol (Miralax) 17 gm BEDTIME ORAL 06/17/19 21:00 07/17/19 20:59 06/27/19 20:14 Last 24 Hour Vital Signs Date Time Temp Pulse Resp B/P (MAP) Pulse Ox O2 Delivery O2 Flow Rate FiO2 06/28/19 04:00 68 06/28/19 04:00 97.5 75 20 144/95 (111) 94 06/28/19 00:00 97.7 74 20 137/78 (97) 97 06/28/19 00:00 74 06/27/19 21:00 Nasal Cannula 2.0 06/27/19 20:00 76 06/27/19 20:00 98.1 85 20 134/74 (94) 97 06/27/19 16:00 82 06/27/19 16:00 98.2 87 20 154/77 (102) 97 06/27/19 12:00 85 06/27/19 12:00 97.1 85 18 135/78 (97) 95 06/27/19 09:00 Nasal Cannula 2.0 06/27/19 09:00 85 109/69 06/27/19 09:00 85 109/69 06/27/19 08:00 98.4 87 18 135/74 (94) 94 06/27/19 08:00 79 06/27/19 04:00 97.1 84 18 109/69 (82) 94 06/27/19 04:00 85 06/27/19 00:00 84 06/27/19 00:00 97.5 78 18 132/59 (83) 95 06/26/19 21:00 Nasal Cannula 2.0 06/26/19 20:00 97.7 82 18 125/62 (83) 90 06/26/19 20:00 79 06/26/19 16:00 72 06/26/19 16:00 97.9 74 19 108/63 (78) 94 06/26/19 12:00 97.3 87 19 101/64 (76) 96 06/26/19 12:00 75 06/26/19 09:35 101 111/73 06/26/19 09:00 101 111/73 06/26/19 09:00 Nasal Cannula 2.0 06/26/19 08:00 100.4 101 19 111/73 (86) 95 06/26/19 08:00 98 Intake and Output 06/27/19 06/28/19 19:00 07:00 Intake Total 43 ml 401 ml Balance 43 ml 401 ml Free Water 100 ml Tube Feeding 43 ml 301 ml # Voids 3 1 # Bowel Movements 1 Labs Test 06/25/19 06:20 06/26/19 07:10 06/27/19 06:08 White Blood Count 9.4 K/UL (4.8-10.8) 10.9 K/UL (4.8-10.8) 7.7 K/UL (4.8-10.8) Red Blood Count 4.43 M/UL (4.70-6.10) 4.66 M/UL (4.70-6.10) 4.34 M/UL (4.70-6.10) Hemoglobin 13.5 G/DL (14.2-18.0) 14.0 G/DL (14.2-18.0) 13.2 G/DL (14.2-18.0) Hematocrit 40.2 % (42.0-52.0) 41.7 % (42.0-52.0) 39.0 % (42.0-52.0) Mean Corpuscular Volume 91 FL (80-99) 89 FL (80-99) 90 FL (80-99) Mean Corpuscular Hemoglobin 30.5 PG (27.0-31.0) 30.0 PG (27.0-31.0) 30.3 PG (27.0-31.0) Mean Corpuscular Hemoglobin Concent 33.7 G/DL (32.0-36.0) 33.6 G/DL (32.0-36.0) 33.7 G/DL (32.0-36.0) Red Cell Distribution Width 12.7 % (11.6-14.8) 12.5 % (11.6-14.8) 12.8 % (11.6-14.8) Platelet Count 369 K/UL (150-450) 409 K/UL (150-450) 376 K/UL (150-450) Mean Platelet Volume 5.2 FL (6.5-10.1) 5.5 FL (6.5-10.1) 5.8 FL (6.5-10.1) Neutrophils (%) (Auto) 73.4 % (45.0-75.0) % (45.0-75.0) 75.7 % (45.0-75.0) Lymphocytes (%) (Auto) 21.1 % (20.0-45.0) % (20.0-45.0) 16.1 % (20.0-45.0) Monocytes (%) (Auto) 5.2 % (1.0-10.0) % (1.0-10.0) 7.3 % (1.0-10.0) Eosinophils (%) (Auto) 0.1 % (0.0-3.0) % (0.0-3.0) 0.2 % (0.0-3.0) Basophils (%) (Auto) 0.3 % (0.0-2.0) % (0.0-2.0) 0.6 % (0.0-2.0) Sodium Level 140 MMOL/L (136-145) 138 MMOL/L (136-145) 141 MMOL/L (136-145) Potassium Level 4.6 MMOL/L (3.5-5.1) 4.3 MMOL/L (3.5-5.1) 4.5 MMOL/L (3.5-5.1) Chloride Level 104 MMOL/L (98-107) 102 MMOL/L (98-107) 104 MMOL/L (98-107) Carbon Dioxide Level 32 MMOL/L (21-32) 29 MMOL/L (21-32) 31 MMOL/L (21-32) Anion Gap 4 mmol/L (5-15) 7 mmol/L (5-15) 6 mmol/L (5-15) Blood Urea Nitrogen 16 mg/dL (7-18) 17 mg/dL (7-18) 21 mg/dL (7-18) Creatinine 0.7 MG/DL (0.55-1.30) 0.8 MG/DL (0.55-1.30) 0.8 MG/DL (0.55-1.30) Estimat Glomerular Filtration Rate > 60 mL/min (>60) > 60 mL/min (>60) > 60 mL/min (>60) Glucose Level 109 MG/DL (74-106) 178 MG/DL (74-106) 126 MG/DL (74-106) Calcium Level 8.3 MG/DL (8.5-10.1) 8.8 MG/DL (8.5-10.1) 8.6 MG/DL (8.5-10.1) Total Bilirubin 0.5 MG/DL (0.2-1.0) 0.4 MG/DL (0.2-1.0) 0.4 MG/DL (0.2-1.0) Aspartate Amino Transf (AST/SGOT) 83 U/L (15-37) 77 U/L (15-37) 55 U/L (15-37) Alanine Aminotransferase (ALT/SGPT) 85 U/L (12-78) 76 U/L (12-78) 55 U/L (12-78) Alkaline Phosphatase 145 U/L (46-116) 145 U/L (46-116) 148 U/L (46-116) Total Protein 7.0 G/DL (6.4-8.2) 8.2 G/DL (6.4-8.2) 7.7 G/DL (6.4-8.2) Albumin 2.2 G/DL (3.4-5.0) 2.3 G/DL (3.4-5.0) 2.0 G/DL (3.4-5.0) Globulin 4.8 g/dL 5.7 g/dL Albumin/Globulin Ratio 0.5 (1.0-2.7) 0.4 (1.0-2.7) Differential Total Cells Counted 100 Neutrophils % (Manual) 92 % (45-75) Lymphocytes % (Manual) 4 % (20-45) Monocytes % (Manual) 4 % (1-10) Eosinophils % (Manual) 0 % (0-3) Basophils % (Manual) 0 % (0-2) Band Neutrophils 0 % (0-8) Platelet Estimate Adequate Platelet Morphology Normal Red Blood Cell Morphology Normal Direct Bilirubin 0.2 MG/DL (0.0-0.3) Phosphorus Level 3.0 MG/DL (2.5-4.9) Magnesium Level 2.4 MG/DL (1.8-2.4) Height (Feet): 5 Height (Inches): 2.00 Weight (Pounds): 130 Objective Physical Exam General: Awake and somewhat confused, no acute distress HEENT: NC/AT. EOMI. Cardiovascular: RRR. S1 and S2 normal. No murmur appreciated Resp: Mild tachypnea, normal work of breathing. On 2 L nasal cannula. Abdomen: Abdomen is soft, nondistended. Nontender Skin: Intact. No abrasions, laceration MSK: Normal tone and bulk. Moving all extremities Neuro: Awake and somewhat confused. Poor historian Geraldo Galvez MD Jun 28, 2019 06:02
--- NOTE | 2019-06-28 06:21 | General Progress Note ---
Assessment/Plan Status: progressing, unchanged Assessment/Plan: 1. History of dementia. 2. CHF. 3. Hypertension. 4. BPH. 5. Constipation. 6. elevated LFTS 7. AMI 8. gallstones improving LFTS hep C positive>>> HCV RNA positive>>>patient needs out patient fu for treatment fu cardiology repeat labs in am ngt in place ngTF on COVID isolation Subjective ROS Limited/Unobtainable: No Allergies: Coded Allergies: No Known Allergies (Unverified , 06/15/19) Objective Last 24 Hour Vital Signs Date Time Temp Pulse Resp B/P (MAP) Pulse Ox O2 Delivery O2 Flow Rate FiO2 06/28/19 04:00 68 06/28/19 04:00 97.5 75 20 144/95 (111) 94 06/28/19 00:00 97.7 74 20 137/78 (97) 97 06/28/19 00:00 74 06/27/19 21:00 Nasal Cannula 2.0 06/27/19 20:00 76 06/27/19 20:00 98.1 85 20 134/74 (94) 97 06/27/19 16:00 82 06/27/19 16:00 98.2 87 20 154/77 (102) 97 06/27/19 12:00 85 06/27/19 12:00 97.1 85 18 135/78 (97) 95 06/27/19 09:00 Nasal Cannula 2.0 06/27/19 09:00 85 109/69 06/27/19 09:00 85 109/69 06/27/19 08:00 98.4 87 18 135/74 (94) 94 06/27/19 08:00 79 Intake and Output 06/27/19 06/28/19 19:00 07:00 Intake Total 43 ml 401 ml Balance 43 ml 401 ml Free Water 100 ml Tube Feeding 43 ml 301 ml # Voids 3 1 # Bowel Movements 1 Height (Feet): 5 Height (Inches): 2.00 Weight (Pounds): 130 General Appearance: lethargic EENT: normal ENT inspection Neck: supple Cardiovascular: normal peripheral pulses Respiratory/Chest: decreased breath sounds Abdomen: normal bowel sounds, non tender, soft Extremities: non-tender Perry Quiroga MD Jun 28, 2019 06:21
[2019-06-28 06:47] LABS: BASOPHILS % (AUTO) 1.1 % (0.0-2.0); EOSINOPHILS % (AUTO) 0.3 % (0.0-3.0); HEMATOCRIT 43.9 % (42.0-52.0); HEMOGLOBIN 14.4 G/DL (14.2-18.0); LYMPHOCYTES % (AUTO) 28.5 % (20.0-45.0); MEAN CORPUSCULAR VOLUME 91 FL (80-99); MONOCYTES % (AUTO) 6.5 % (1.0-10.0); NEUTROPHILS % (AUTO) 63.6 % (45.0-75.0); PLATELET COUNT 385 K/UL (150-450); RED BLOOD COUNT 4.83 M/UL (4.70-6.10); RED CELL DISTRIBUTION WIDTH 12.8 % (11.6-14.8); WHITE BLOOD COUNT 7.8 K/UL (4.8-10.8)
--- NOTE | 2019-06-28 07:20 | NUR ---
HAND-OFF: Report given to MANOLO Jason.
--- NOTE | 2019-06-28 07:21 | NUR ---
NURSE NOTES: Received patient in bed awake. No SOB or acute distress. O2 via NC in place. Bilateral soft wrist restraints on, peripheral pulses palpable, no skin issues noted on site. NG tube in place, with feeding ongoing. IV line intact. HOB elevated. Bed locked in lowest position. Call light within reach. Will continue plan of care.
[2019-06-28 07:26] LABS: ANION GAP 5 mmol/L (5-15); BLOOD UREA NITROGEN 19 mg/dL (7-18); CALCIUM 8.8 MG/DL (8.5-10.1); CARBON DIOXIDE 33 MMOL/L (21-32); CHLORIDE 104 MMOL/L (98-107); CREATININE 0.8 MG/DL (0.55-1.30); POTASSIUM 4.9 MMOL/L (3.5-5.1); SODIUM 142 MMOL/L (136-145)
[2019-06-28 08:00] VITALS: BP 144/83
[2019-06-28] MEDS: Memantine 10mg tab ORAL SCH ×2 (08:38→17:02)
[2019-06-28] MEDS: Donepezil 5mg Tab ORAL SCH (08:38)
[2019-06-28] MEDS: Docusate 100mg cap ORAL SCH (08:39)
[2019-06-28] MEDS: Metoprolol Succinate XL 25mg tab ORAL SCH (08:39)
[2019-06-28] MEDS: Aspirin Baby 81mg ORAL SCH (08:39)
[2019-06-28] MEDS: Enoxaparin 40mg Inj SUBQ SCH (08:40)
--- NOTE | 2019-06-28 10:14 | NUR ---
RD ASSESSMENT & RECOMMENDATIONS SEE CARE ACTIVITY FOR COMPLETE ASSESSMENT DAILY ESTIMATED NEEDS: Needs based on Cardiac, pulmonary 61.2kg 25-30 kcals/kg 3489-2156 total kcals 1-1.5 g protein/kg 61-92 g total protein 20-25 mL/kg 0870-0469 total fluid mLs NUTRITION DIAGNOSIS: Swallowing and chewing difficulty r/t dysphagia as evidenced by pt on liquify puree texture diet w/ NTL, variable PO intake and 1:1 feeds, now on NGT feeds + oral grat. CURRENT TF:Glucerna 1.5@ 43ml/hr + Oral grat ENTERAL NUTRITION RECOMMENDATIONS: Glucerna 1.5 @43ml/hr x24 hrs to provide 1032ml, 1548 kcal, 85g pro, 783ml free H2O - Maintain current TF - Flush per , HOB over 30 degrees. ADDITIONAL RECOMMENDATIONS: 1) Obtain a calibrated bed scale wt and UPDATED EMR, Updated wt of 59.165kg is more c/w initial wt 2) Monitor lytes, need for renal TF 3) TF recs as above 4) rec NISS w/ TF's for glycemic control 5) Wound eval: BL heel partial thickness wounds per EMR documentation (06/24) .
--- NOTE | 2019-06-28 11:26 | NUR ---
DISCHARGE PLANNING PATIENT IS FROM [facility] AND COVID 19 POSITIVE [facility] IS ANTICIPATING DISCHARGE NURSING TO OBTAIN ID CLEARANCE FOR DISCHARGE BACK TO SNF ' [facility] FAXED CLINICALS TO' [facility] T: [phone] AWAIT CLEARANCE AND ASSIGNED ROOM NUMBER
[2019-06-28 11:31] VITALS: BP 151/93
--- NOTE | 2019-06-28 11:51 | NUR ---
NURSE NOTES: Patient cleared for discharge from ID standpoint as per Dr Kaye Betancourt.
--- NOTE | 2019-06-28 12:09 | Infectious Diseases Prog Note ---
Assessment/Plan Assessment/Plan IMPRESSION: COIVD19 Pneumonia, Cholelithiasis and elevated transaminase level, acidosis, dementia with behavioral problem. Dysphagia RECOMMENDATION: We will repeat COVID19 test Subjective ROS Limited/Unobtainable: Yes Neurologic: Reports: confusion, other - on restraint Allergies: Coded Allergies: No Known Allergies (Unverified , 06/15/19) Objective Vital Signs Last 24 Hour Vital Signs Date Time Temp Pulse Resp B/P (MAP) Pulse Ox O2 Delivery O2 Flow Rate FiO2 06/28/19 11:31 97.6 65 18 151/93 (112) 97 06/28/19 09:00 Nasal Cannula 2.0 06/28/19 08:39 64 144/83 06/28/19 08:38 64 144/83 06/28/19 08:00 72 06/28/19 08:00 96.7 64 19 144/83 (103) 97 06/28/19 04:00 68 06/28/19 04:00 97.5 75 20 144/95 (111) 94 06/28/19 00:00 97.7 74 20 137/78 (97) 97 06/28/19 00:00 74 06/27/19 21:00 Nasal Cannula 2.0 06/27/19 20:00 76 06/27/19 20:00 98.1 85 20 134/74 (94) 97 06/27/19 16:00 82 06/27/19 16:00 98.2 87 20 154/77 (102) 97 Height (Feet): 5 Height (Inches): 2.00 Weight (Pounds): 130 General Appearance: no acute distress HEENT: mucous membranes moist Respiratory/Chest: lungs clear Cardiovascular: normal rate Abdomen: soft, non tender, other - NG tube Extremities: no edema Neurologic/Psychiatric: disoriented Laboratory Tests Test 06/28/19 06:10 White Blood Count 7.8 K/UL (4.8-10.8) Red Blood Count 4.83 M/UL (4.70-6.10) Hemoglobin 14.4 G/DL (14.2-18.0) Hematocrit 43.9 % (42.0-52.0) Mean Corpuscular Volume 91 FL (80-99) Mean Corpuscular Hemoglobin 29.7 PG (27.0-31.0) Mean Corpuscular Hemoglobin Concent 32.7 G/DL (32.0-36.0) Red Cell Distribution Width 12.8 % (11.6-14.8) Platelet Count 385 K/UL (150-450) Mean Platelet Volume 5.5 FL (6.5-10.1) L Neutrophils (%) (Auto) 63.6 % (45.0-75.0) Lymphocytes (%) (Auto) 28.5 % (20.0-45.0) Monocytes (%) (Auto) 6.5 % (1.0-10.0) Eosinophils (%) (Auto) 0.3 % (0.0-3.0) Basophils (%) (Auto) 1.1 % (0.0-2.0) Sodium Level 142 MMOL/L (136-145) Potassium Level 4.9 MMOL/L (3.5-5.1) Chloride Level 104 MMOL/L (98-107) Carbon Dioxide Level 33 MMOL/L (21-32) H Anion Gap 5 mmol/L (5-15) Blood Urea Nitrogen 19 mg/dL (7-18) H Creatinine 0.8 MG/DL (0.55-1.30) Estimat Glomerular Filtration Rate > 60 mL/min (>60) Glucose Level 134 MG/DL (74-106) H Calcium Level 8.8 MG/DL (8.5-10.1) Current Medications Medications (Trade) Dose Ordered Sig/Kaylan Route PRN Reason Start Time Stop Time Status Last Admin Dose Admin Acetaminophen (Tylenol) 500 mg Q6H PRN ORAL For Pain 06/16/19 00:15 07/16/19 00:14 Acetaminophen (Tylenol) 650 mg Q6H PRN ORAL For Headache 06/16/19 03:00 07/16/19 02:59 06/26/19 09:35 Albuterol Sulfate (Proventil MDI) 2 puff Q6H PRN INH Shortness of Breath 06/16/19 03:00 09/14/19 02:59 Amlodipine Besylate (Norvasc) 5 mg DAILY NG 06/23/19 12:00 07/23/19 11:59 06/28/19 08:38 Aspirin (ASA) 81 mg DAILY ORAL 06/16/19 09:00 07/31/19 08:59 06/28/19 08:39 Docusate Sodium (Colace) 100 mg DAILY ORAL 06/16/19 09:00 07/16/19 08:59 06/28/19 08:39 Donepezil HCl (Aricept) 5 mg DAILY ORAL 06/16/19 09:00 07/16/19 08:59 06/28/19 08:38 Enoxaparin Sodium (Lovenox) 40 mg DAILY SUBQ 06/16/19 09:00 09/14/19 08:59 06/28/19 08:40 Hydralazine HCl (Apresoline) 25 mg Q4H PRN ORAL For blood pressure over 160 sy 06/22/19 13:30 09/20/19 13:29 Memantine (Namenda) 10 mg TWICE A DAY ORAL 06/16/19 09:00 07/16/19 08:59 06/28/19 08:38 Metoprolol Succinate (Toprol XL) 25 mg DAILY ORAL 06/19/19 19:15 09/17/19 19:14 06/28/19 08:39 Mirtazapine (Remeron) 15 mg BEDTIME ORAL 06/21/19 21:00 09/19/19 20:59 06/27/19 20:14 Ondansetron HCl (Zofran) 4 mg Q6H PRN IVP Nausea & Vomiting 06/16/19 03:00 07/16/19 02:59 Polyethylene Glycol (Miralax) 17 gm BEDTIME ORAL 06/17/19 21:00 07/17/19 20:59 06/27/19 20:14 Benigno Betancourt MD Jun 28, 2019 12:09
--- NOTE | 2019-06-28 12:12 | NUR ---
SANDER SETTER DYSPHAGIA TX AND DISCHARGE NOTE: PT SEEN FOR ONGOING DYSPHAGIA MANAGEMENT AND INTERVENTION. CURRENT DIET: NGT PRIMARY NUTRITION/HYDRATION. ORAL GRATIFICATION: PUREE (LIQUIFIED) WITH NECTAR THICK LIQUIDS. PT INCONSISTENTLY AGREEABLE TO PO ORAL GRATIFICATION. PER RNYAIR, PT WAS SPITTING FOOD AT NIGHT NURSE LAST NIGHT (06/27/19) WHEN ATTEMPTING TO FEED. AT THIS TIME, PT IS RECEIVING ADEQUATE NUTRITION/HYDRATION VIA NGT W/ PLANS FOR LONG-TERM ALTERNATIVE NUTRITION/HYDRATION S/P COVID-19 NEGATIVE. PT ALSO HAS ORAL GRATIFICATION DIET ORDER FOR QUALITY OF LIFE AND TO MAINTAIN CURRENT SWALLOW STATUS AND FUNCTIONING. RN IS AWARE OF ASPIRATION PRECAUTIONS, SAFE SWALLOW STRATEGIES, ORAL CARE RECOMMENDATIONS, AND NO FURTHER SANDER SETTER INTERVENTION INDICATED AT THIS TIME ALL GOALS MET. PT MAY BENEFIT FROM SANDER SETTER AT NEXT LEVEL OF CARE TO SCREEN PT AND DETERMINE APPROPRIATENESS FOR RE-EVALUATION/SKILLED TX.
--- NOTE | 2019-06-28 13:32 | NUR ---
DISCHARGE PLANNING PATIENT HAS BEEN CLEARED BY DR GROSS FOR DISCHARGE [facility] AT [facility] HAS ACCEPTED PATIENT BACK TO ROOM 318B MESSAGE LEFT FOR DR BUSH REQUESTING DISCHARGE ORDER
--- NOTE | 2019-06-28 15:17 | Nephrology Progress Note ---
Assessment/Plan Problem List: (1) Dehydration (2) Electrolyte imbalance (3) Elevated LFTs (4) HTN (hypertension) (5) Suspected 2019 novel coronavirus infection Assessment Electrolyte imbalance Dehydration and free water deficit Pneumonia suspected COVID-19 infection Elevated troponin Dementia Cholelithiasis and elevated liver enzymes BPH Hypertension Plan Positive for COVID-19 DC IV fluid and PO KCL Add Norvasc Hydralazine as needed for blood pressure over 160 systolic Monitor electrolyte Continue per consultants Urine analysis ordered as none is available since admission Per orders Subjective ROS Limited/Unobtainable: Yes Objective Objective Last 24 Hour Vital Signs Date Time Temp Pulse Resp B/P (MAP) Pulse Ox O2 Delivery O2 Flow Rate FiO2 06/28/19 12:00 72 06/28/19 11:31 97.6 65 18 151/93 (112) 97 06/28/19 09:00 Nasal Cannula 2.0 06/28/19 08:39 64 144/83 06/28/19 08:38 64 144/83 06/28/19 08:00 72 06/28/19 08:00 96.7 64 19 144/83 (103) 97 06/28/19 04:00 68 06/28/19 04:00 97.5 75 20 144/95 (111) 94 06/28/19 00:00 97.7 74 20 137/78 (97) 97 06/28/19 00:00 74 06/27/19 21:00 Nasal Cannula 2.0 06/27/19 20:00 76 06/27/19 20:00 98.1 85 20 134/74 (94) 97 06/27/19 16:00 82 06/27/19 16:00 98.2 87 20 154/77 (102) 97 Intake and Output 06/27/19 06/28/19 19:00 07:00 Intake Total 43 ml 673 ml Balance 43 ml 673 ml Free Water 200 ml Tube Feeding 43 ml 473 ml # Voids 3 3 # Bowel Movements 1 1 Current Medications Medications (Trade) Dose Ordered Sig/Kaylan Route PRN Reason Start Time Stop Time Status Last Admin Dose Admin Acetaminophen (Tylenol) 500 mg Q6H PRN ORAL For Pain 06/16/19 00:15 07/16/19 00:14 Acetaminophen (Tylenol) 650 mg Q6H PRN ORAL For Headache 06/16/19 03:00 07/16/19 02:59 06/26/19 09:35 Albuterol Sulfate (Proventil MDI) 2 puff Q6H PRN INH Shortness of Breath 06/16/19 03:00 09/14/19 02:59 Amlodipine Besylate (Norvasc) 5 mg DAILY NG 06/23/19 12:00 07/23/19 11:59 06/28/19 08:38 Aspirin (ASA) 81 mg DAILY ORAL 06/16/19 09:00 07/31/19 08:59 06/28/19 08:39 Docusate Sodium (Colace) 100 mg DAILY ORAL 06/16/19 09:00 07/16/19 08:59 06/28/19 08:39 Donepezil HCl (Aricept) 5 mg DAILY ORAL 06/16/19 09:00 07/16/19 08:59 06/28/19 08:38 Enoxaparin Sodium (Lovenox) 40 mg DAILY SUBQ 06/16/19 09:00 09/14/19 08:59 06/28/19 08:40 Hydralazine HCl (Apresoline) 25 mg Q4H PRN ORAL For blood pressure over 160 sy 06/22/19 13:30 09/20/19 13:29 Memantine (Namenda) 10 mg TWICE A DAY ORAL 06/16/19 09:00 07/16/19 08:59 06/28/19 08:38 Metoprolol Succinate (Toprol XL) 25 mg DAILY ORAL 06/19/19 19:15 09/17/19 19:14 06/28/19 08:39 Mirtazapine (Remeron) 15 mg BEDTIME ORAL 06/21/19 21:00 09/19/19 20:59 06/27/19 20:14 Ondansetron HCl (Zofran) 4 mg Q6H PRN IVP Nausea & Vomiting 06/16/19 03:00 07/16/19 02:59 Polyethylene Glycol (Miralax) 17 gm BEDTIME ORAL 06/17/19 21:00 07/17/19 20:59 06/27/19 20:14 Laboratory Tests 06/28/19 06:10: White Blood Count 7.8, Red Blood Count 4.83, Hemoglobin 14.4, Hematocrit 43.9, Mean Corpuscular Volume 91, Mean Corpuscular Hemoglobin 29.7, Mean Corpuscular Hemoglobin Concent 32.7, Red Cell Distribution Width 12.8, Platelet Count 385, Mean Platelet Volume 5.5L, Neutrophils (%) (Auto) 63.6, Lymphocytes (%) (Auto) 28.5, Monocytes (%) (Auto) 6.5, Eosinophils (%) (Auto) 0.3, Basophils (%) (Auto ) 1.1, Sodium Level 142, Potassium Level 4.9, Chloride Level 104, Carbon Dioxide Level 33H, Anion Gap 5, Blood Urea Nitrogen 19H, Creatinine 0.8, Estimat Glomerular Filtration Rate > 60, Glucose Level 134H, Calcium Level 8.8 Height (Feet): 5 Height (Inches): 2.00 Weight (Pounds): 130 General Appearance: no apparent distress, lethargic Cardiovascular: normal rate Respiratory/Chest: decreased breath sounds Abdomen: distended Drew Gonzalez MD Jun 28, 2019 15:17
--- NOTE | 2019-06-28 15:27 | NUR ---
NURSE NOTES:WOUND CARE NOTES:Pt presented on admission with non-blanching erythema R and L buttocks with a resolving pressure injury within affected area with loose dry peeling skin .Non-tender when palpated. Darker skin tone without induration or tenderness R and L clefts of buttocks. Both heels are boggy with non-blanching erythema. Tx.Plan:Apply Moisture Barrier Paste to Sacrum. Cover with Optifoam drsg. Change every 3 days and prn. Apply Cavilon Skin Barrier to both heels. Cover each heel with Optifoam drsg. Change every 7 days an prn. Reposition at least every 2hours or as tolerated. Off-load heels with pillow.
--- NOTE | 2019-06-28 15:45 | NUR ---
NURSE NOTES: Restraints removed as ordered by Dr Malhotra. Monitoring for behavior.
[2019-06-28 16:00] VITALS: BP 149/81
--- NOTE | 2019-06-28 16:30 | NUR ---
DISCHARGE UPDATE DISCHARGE CURRENTLY ON HOLD [facility] WILL NOT TAKE PATIENT WILL NG TUBE DISCUSSED WITH DR BUSH...HE WILL CONSULT DR LUCIA DOWNGRADE TO MED/SURG
--- NOTE | 2019-06-28 17:13 | NUR ---
NURSE NOTES: RN asked Dr Malhotra if restraints should be put back since patient is for transfer to [facility]. Dr Mlahotra said to ask Dr Santiago for orders. RN contacted Dr Santiago, awaiting response.
--- NOTE | 2019-06-28 17:45 | NUR ---
NURSE NOTES: Restraints placed as ordered by Dr Santiago.
--- NOTE | 2019-06-28 19:15 | NUR ---
NURSE NOTES: Report received from MANOLO Jason. Patient asleep, but arousable. HOB elevated, gluverna 1.5 running at 43ml/hr. AOx1, opens eyes spontaneously. On bilateral soft restraints, will assess skin routinely. NGT securely in place, patent and flushed. IV on LFA #20g intact and flushed; no erythema, bleeding, or infiltration. Bed in lowest position, brakes engaged, side rails raised x2. On droplet and contact precaution. Call light placed within reach. Will continue to monitor.
--- NOTE | 2019-06-28 19:40 | NUR ---
HAND-OFF: Report given to Fredrick FRENCH.
--- NOTE | 2019-06-28 19:45 | NUR ---
NURSE NOTES: Informed son Qasim that patient is [facility], and that restraints were back on since patient was not discharged.
[2019-06-28 20:00] VITALS: BP 138/71
--- NOTE | 2019-06-28 20:25 | General Progress Note ---
Assessment/Plan Problem List: (1) Elevated troponin ICD Codes: R79.89 - Other specified abnormal findings of blood chemistry SNOMED: 412133604, 953904746, 556650017 (2) Elevated LFTs ICD Codes: R79.89 - Other specified abnormal findings of blood chemistry SNOMED: 701169112, 293541707, 019999479 (3) Pneumonia ICD Codes: J18.9 - Pneumonia, unspecified organism SNOMED: 883356291, 342776448, 102534962 (4) Suspected 2019 novel coronavirus infection ICD Codes: R68.89 - Other general symptoms and signs SNOMED: 917445489 Status: progressing, unchanged Assessment/Plan: covid positive pna resp insuff poor appetite ng tube asked dr bautista reviewed chart and labs Subjective ROS Limited/Unobtainable: Yes Allergies: Coded Allergies: No Known Allergies (Unverified , 06/15/19) Objective Last 24 Hour Vital Signs Date Time Temp Pulse Resp B/P (MAP) Pulse Ox O2 Delivery O2 Flow Rate FiO2 06/28/19 16:00 98.6 60 20 149/81 (103) 97 06/28/19 16:00 78 06/28/19 12:00 72 06/28/19 11:31 97.6 65 18 151/93 (112) 97 06/28/19 09:00 Nasal Cannula 2.0 06/28/19 08:39 64 144/83 06/28/19 08:38 64 144/83 06/28/19 08:00 72 06/28/19 08:00 96.7 64 19 144/83 (103) 97 06/28/19 04:00 68 06/28/19 04:00 97.5 75 20 144/95 (111) 94 06/28/19 00:00 97.7 74 20 137/78 (97) 97 06/28/19 00:00 74 06/27/19 21:00 Nasal Cannula 2.0 Intake and Output 06/27/19 06/28/19 19:00 07:00 Intake Total 43 ml 673 ml Balance 43 ml 673 ml Free Water 200 ml Tube Feeding 43 ml 473 ml # Voids 3 3 # Bowel Movements 1 1 Laboratory Tests 06/28/19 06:10: White Blood Count 7.8, Red Blood Count 4.83, Hemoglobin 14.4, Hematocrit 43.9, Mean Corpuscular Volume 91, Mean Corpuscular Hemoglobin 29.7, Mean Corpuscular Hemoglobin Concent 32.7, Red Cell Distribution Width 12.8, Platelet Count 385, Mean Platelet Volume 5.5L, Neutrophils (%) (Auto) 63.6, Lymphocytes (%) (Auto) 28.5, Monocytes (%) (Auto) 6.5, Eosinophils (%) (Auto) 0.3, Basophils (%) (Auto ) 1.1, Sodium Level 142, Potassium Level 4.9, Chloride Level 104, Carbon Dioxide Level 33H, Anion Gap 5, Blood Urea Nitrogen 19H, Creatinine 0.8, Estimat Glomerular Filtration Rate > 60, Glucose Level 134H, Calcium Level 8.8 Height (Feet): 5 Height (Inches): 2.00 Weight (Pounds): 130 Gorge Malhotra MD Jun 28, 2019 20:25
[2019-06-28] MEDS: Miralax 17gm pkt ORAL SCH (21:21)
--- NOTE | 2019-06-28 21:26 | Pulmonology Progress Note ---
Assessment/Plan Assessment/Plan Pulmonary Progress Note HPI: Patient is a 88-year-old male history of Dementia, Congestive Heart Failure , admitted from [facility] facility with Pneumonia, COVID 19 positive, noted to have fever and shortness of breath, chest congestion and tightness for 2 days. Noted to be confused in the ED. Has been febrile with low-grade temperatures for the past 2 days. No vomiting or diarrhea or abdominal pain. Stable O2 requirements - 2L NC, stable Pulmonary Status clinically Slight worsening of infiltrates on CXR Seen earlier PMH: Dementia, Congestive Heart Failure Social Hx: Long-Term Resident FHx: NC Allergies: No Known Allergies All Other Systems: limited - AMS Physical Exam Vital signs noted General: Awake and somewhat confused, no acute distress HEENT: NC/AT. EOMI. Cardiovascular: RRR. S1 and S2 normal. No murmur appreciated Resp: Mild tachypnea, normal work of breathing. On 2 L nasal cannula. No cough Abdomen: Abdomen is soft, nondistended. Nontender Skin: Intact. No abrasions, laceration or rash noted MSK: Normal tone and bulk. Moving all extremities. No obvious deformity. Neuro: Awake and somewhat confused. Poor historian. No focal signs Impression: Pneumonia Suspected 2019 novel coronavirus infection Elevated troponin Elevated LFTs Lymphopenia Dementia Congestive Heart Failure Long-Term Resident Plan Antibiotics/antivirals per ID O2 PRN Albuterol MDI PRN PPX - Lovenox ASA Monitor labs - hypokalemia - s/p supplementation Monitor cultures/viral studies Ultrasound of the abdomen pending. Isolation for suspected COVID-19 infection Laboratory Tests noted EKG Rate: normal Rhythm: NSR ST Segments: no acute changes Sinus rhythm, left axis deviation. Occasional PACs. T wave inversions, no ST segment changes Chest X-Ray: Consolidations in the left lower lobe may represent an early pneumonia. No effusion. Current CXR slight worsening of infiltrates . Subjective ROS Limited/Unobtainable: No Constitutional: Denies: fever Respiratory: Reports: shortness of breath Allergies: Coded Allergies: No Known Allergies (Unverified , 06/15/19) Objective Last 24 Hour Vital Signs Date Time Temp Pulse Resp B/P (MAP) Pulse Ox O2 Delivery O2 Flow Rate FiO2 06/28/19 16:00 98.6 60 20 149/81 (103) 97 06/28/19 16:00 78 06/28/19 12:00 72 06/28/19 11:31 97.6 65 18 151/93 (112) 97 06/28/19 09:00 Nasal Cannula 2.0 06/28/19 08:39 64 144/83 06/28/19 08:38 64 144/83 06/28/19 08:00 72 06/28/19 08:00 96.7 64 19 144/83 (103) 97 06/28/19 04:00 68 06/28/19 04:00 97.5 75 20 144/95 (111) 94 06/28/19 00:00 97.7 74 20 137/78 (97) 97 06/28/19 00:00 74 Intake and Output 06/27/19 06/28/19 19:00 07:00 Intake Total 43 ml 673 ml Balance 43 ml 673 ml Free Water 200 ml Tube Feeding 43 ml 473 ml # Voids 3 3 # Bowel Movements 1 1 General Appearance: no acute distress HEENT: mucous membranes moist Abdomen: soft, non tender, other - NG tube Extremities: no edema Neurologic/Psychiatric: disoriented Laboratory Tests 06/28/19 06:10: White Blood Count 7.8, Red Blood Count 4.83, Hemoglobin 14.4, Hematocrit 43.9, Mean Corpuscular Volume 91, Mean Corpuscular Hemoglobin 29.7, Mean Corpuscular Hemoglobin Concent 32.7, Red Cell Distribution Width 12.8, Platelet Count 385, Mean Platelet Volume 5.5L, Neutrophils (%) (Auto) 63.6, Lymphocytes (%) (Auto) 28.5, Monocytes (%) (Auto) 6.5, Eosinophils (%) (Auto) 0.3, Basophils (%) (Auto ) 1.1, Sodium Level 142, Potassium Level 4.9, Chloride Level 104, Carbon Dioxide Level 33H, Anion Gap 5, Blood Urea Nitrogen 19H, Creatinine 0.8, Estimat Glomerular Filtration Rate > 60, Glucose Level 134H, Calcium Level 8.8 Current Medications Medications (Trade) Dose Ordered Sig/Kaylan Route PRN Reason Start Time Stop Time Status Last Admin Dose Admin Acetaminophen (Tylenol) 500 mg Q6H PRN ORAL For Pain 06/16/19 00:15 07/16/19 00:14 Acetaminophen (Tylenol) 650 mg Q6H PRN ORAL For Headache 06/16/19 03:00 07/16/19 02:59 06/26/19 09:35 Albuterol Sulfate (Proventil MDI) 2 puff Q6H PRN INH Shortness of Breath 06/16/19 03:00 09/14/19 02:59 Amlodipine Besylate (Norvasc) 5 mg DAILY NG 06/23/19 12:00 07/23/19 11:59 06/28/19 08:38 Aspirin (ASA) 81 mg DAILY ORAL 06/16/19 09:00 07/31/19 08:59 06/28/19 08:39 Docusate Sodium (Colace) 100 mg DAILY ORAL 06/16/19 09:00 07/16/19 08:59 06/28/19 08:39 Donepezil HCl (Aricept) 5 mg DAILY ORAL 06/16/19 09:00 07/16/19 08:59 06/28/19 08:38 Enoxaparin Sodium (Lovenox) 40 mg DAILY SUBQ 06/16/19 09:00 09/14/19 08:59 06/28/19 08:40 Hydralazine HCl (Apresoline) 25 mg Q4H PRN ORAL For blood pressure over 160 sy 06/22/19 13:30 09/20/19 13:29 Memantine (Namenda) 10 mg TWICE A DAY ORAL 06/16/19 09:00 07/16/19 08:59 06/28/19 17:02 Metoprolol Succinate (Toprol XL) 25 mg DAILY ORAL 06/19/19 19:15 09/17/19 19:14 06/28/19 08:39 Mirtazapine (Remeron) 15 mg BEDTIME ORAL 06/21/19 21:00 09/19/19 20:59 06/27/19 20:14 Ondansetron HCl (Zofran) 4 mg Q6H PRN IVP Nausea & Vomiting 06/16/19 03:00 07/16/19 02:59 Polyethylene Glycol (Miralax) 17 gm BEDTIME ORAL 06/17/19 21:00 07/17/19 20:59 06/27/19 20:14 Andrew Diaz MD Jun 28, 2019 21:25
--- NOTE | 2019-06-28 21:52 | Cardiology Progress Note ---
Assessment/Plan Assessment/Plan 1. Dyspnea due to possibly combination of COVID-19 pneumonia in addition to with acute HFpEF, continue lasix and metoprolol. LVEF is at 65%. 2. Possible [id number] myocardial infarction or elevated troponin I level could be secondary to myonecrosis due to CHF. 3. HCV infection. Subjective Subjective Sinus rhythm at rate of 60. Objective Last 24 Hour Vital Signs Date Time Temp Pulse Resp B/P (MAP) Pulse Ox O2 Delivery O2 Flow Rate FiO2 06/28/19 21:49 97 Nasal Cannula 2.0 28 06/28/19 16:00 98.6 60 20 149/81 (103) 97 06/28/19 16:00 78 06/28/19 12:00 72 06/28/19 11:31 97.6 65 18 151/93 (112) 97 06/28/19 09:00 Nasal Cannula 2.0 06/28/19 08:39 64 144/83 06/28/19 08:38 64 144/83 06/28/19 08:00 72 06/28/19 08:00 96.7 64 19 144/83 (103) 97 06/28/19 04:00 68 06/28/19 04:00 97.5 75 20 144/95 (111) 94 06/28/19 00:00 97.7 74 20 137/78 (97) 97 06/28/19 00:00 74 Intake and Output 06/27/19 06/28/19 19:00 07:00 Intake Total 43 ml 673 ml Balance 43 ml 673 ml Free Water 200 ml Tube Feeding 43 ml 473 ml # Voids 3 3 # Bowel Movements 1 1 2D Echo: LVEF 65%, grade I LVDD Laboratory Tests Test 06/28/19 06:10 White Blood Count 7.8 K/UL (4.8-10.8) Red Blood Count 4.83 M/UL (4.70-6.10) Hemoglobin 14.4 G/DL (14.2-18.0) Hematocrit 43.9 % (42.0-52.0) Mean Corpuscular Volume 91 FL (80-99) Mean Corpuscular Hemoglobin 29.7 PG (27.0-31.0) Mean Corpuscular Hemoglobin Concent 32.7 G/DL (32.0-36.0) Red Cell Distribution Width 12.8 % (11.6-14.8) Platelet Count 385 K/UL (150-450) Mean Platelet Volume 5.5 FL (6.5-10.1) L Neutrophils (%) (Auto) 63.6 % (45.0-75.0) Lymphocytes (%) (Auto) 28.5 % (20.0-45.0) Monocytes (%) (Auto) 6.5 % (1.0-10.0) Eosinophils (%) (Auto) 0.3 % (0.0-3.0) Basophils (%) (Auto) 1.1 % (0.0-2.0) Sodium Level 142 MMOL/L (136-145) Potassium Level 4.9 MMOL/L (3.5-5.1) Chloride Level 104 MMOL/L (98-107) Carbon Dioxide Level 33 MMOL/L (21-32) H Anion Gap 5 mmol/L (5-15) Blood Urea Nitrogen 19 mg/dL (7-18) H Creatinine 0.8 MG/DL (0.55-1.30) Estimat Glomerular Filtration Rate > 60 mL/min (>60) Glucose Level 134 MG/DL (74-106) H Calcium Level 8.8 MG/DL (8.5-10.1) Objective HEENT: Atraumatic and normocephalic. Anicteric. Pupils are equal, round, and reactive to light and accommodation. Extraocular muscles intact. NECK: JVP is less than 5 cm. No carotid bruit. Carotid upstroke is 2+ bilaterally. CARDIOVASCULAR: Normal S1 and S2. Regular rate and rhythm. No murmurs, gallops, or rubs. PMI is at fourth intercostal space at midclavicular line. LUNGS: Diminished breath sounds in both bases with associated crackles. ABDOMEN: Soft, nontender, and nondistended. No hepatosplenomegaly. Positive bowel sounds. EXTREMITIES: No evidence of edema, clubbing, or cyanosis. Rolf Moreno MD Jun 28, 2019 21:52
[2019-06-29] VITALS: BP 141/78
--- NOTE | 2019-06-29 00:29 | Initial Psychiatric Evaluation ---
Psychiatry Consultation Psychiatry Consultation Chief Complaint: Upper Respiratory Illness History of Present Illness: 06/27= 88-year-old male with history of dementia , mmp was brought in for evaluation of fever and shortness of breath. the pt is confused and agitated the pt is having sob and has poor memory. the pt gets easily agitated and pulling lines. Allergies: Coded Allergies: No Known Allergies (Unverified , 06/15/19) Past Psychiatric History: Dementia and anxiety Substance Abuse History: none Medication History Scheduled Docusate Sodium* (Docusate Sodium*), 100 MG ORAL DAILY, (Reported) Donepezil Hcl* (Donepezil Hcl*), 5 MG ORAL DAILY, (Reported) Memantine Hcl* (Namenda*), 10 MG ORAL TWICE A DAY, (Reported) Patient History Limited by: medical condition History Provided By: Medical Record, PMD Objective Data Height (Feet): 5 Height (Inches): 2.00 Weight (Pounds): 130 Appearance: no abnormalities noted Behavior Mannerisms: poor eye contact Affect: constricted Mood: anxious Suicidal Ideation: not present Assessment/Plan Diagnosis [place] I: dementia with behavioral dist monitor sxs soft restraints Karlo Santiago MD Jun 29, 2019 00:29
[2019-06-29 04:00] VITALS: BP_SYST 102; BP_SYST 171; BP_DIAS 64; BP_DIAS 98
--- NOTE | 2019-06-29 05:55 | Hematology/Onc Progress Note ---
Assessment/Plan Assessment/Plan Assessment and Plan: # Leukopenia -- multiple etiologies could be related to underlying liver disease , medication-induced, infection versus viral syndrome, in this case likely due to COVID19+, and Hep C+ --> peripheral smear has been ordered and does not show significant abnormalities --> Medications have been reviewed --> Continue to monitor for improvement, trend cbc --> Hep panel and HIV have been ordered--> cw hep C++ exposure --> US abd ordered to r/o cirrhosis and hepatosplenomegaly --> none noted --> reverse isolation if ANC is <2000 --> Give neupogen if ANC <1000 --> 06/22 off abx, repeat covid pending # Suspected 2019 novel coronavirus infection --> per id, on plaq, abx --> iso --> pulm eval recs noted --> 06/22 off abx per id # Pneumonia --> on abx --> oxygen prn --> per id # Elevated troponin ==> nstemi per cards --> diuresis prn # Elevated LFTs --> likely hep C related # Dvt ppx lovenox sq The timing of this note does not necessarily reflect the time of the patient was seen. Greatly appreciate consultation. Subjective HEENT: Denies: no symptoms, eye pain, blurred vision, tearing, double vision, ear pain, ear discharge, nose pain, nose congestion, throat pain, throat swelling, mouth pain, mouth swelling, other Respiratory: Denies: no symptoms, cough, shortness of breath, SOB with excertion, SOB at rest, sputum, wheezing, other Gastrointestinal/Abdominal: Denies: no symptoms, abdomen distended, abdominal pain, black stools, tarry stools, blood in stool, constipated, diarrhea, difficulty swallowing, nausea, poor appetite, poor fluid intake, rectal bleeding , vomiting, other Genitourinary: Denies: no symptoms, burning, discharge, frequency, flank pain, hematuria, incontinence, pain, urgency, other Neurologic/Psychiatric: Denies: no symptoms, anxiety, depressed, emotional problems, headache, numbness, paresthesia, pre-existing deficit, seizure, tingling, tremors, weakness, other Endocrine: Denies: no symptoms, excessive sweating, flushing, intolerance to cold, intolerance to heat, increased hunger, increased thirst, increased urine, unexplained weight gain, unexplained weight loss, other Allergies: Coded Allergies: No Known Allergies (Unverified , 06/15/19) Subjective 06/20 breathing is better, on iso for covid 19, wbc improved 06/21 labs better, no bleeding, no f/c, meds noted, hcv+ 06/22 restraints, off abx, repeat covid pending, nc 06/23 no bleeding, labs noted, no night sweats, cbc reviewed, on 2l nc 06/25 remains on glucerna, have ordered for labs, no bleeding 06/26 remains on 2lnc as for covid infection, for iso 06/27 is on 2lnc, no bleeding, labs reviewed, no night sweats 06/28 labs have improved, no bleeding or chills, imaging noted Objective Objective Current Medications Medications (Trade) Dose Ordered Sig/Kaylan Route PRN Reason Start Time Stop Time Status Last Admin Dose Admin Acetaminophen (Tylenol) 500 mg Q6H PRN ORAL For Pain 06/16/19 00:15 07/16/19 00:14 Acetaminophen (Tylenol) 650 mg Q6H PRN ORAL For Headache 06/16/19 03:00 07/16/19 02:59 06/26/19 09:35 Albuterol Sulfate (Proventil MDI) 2 puff Q6H PRN INH Shortness of Breath 06/16/19 03:00 09/14/19 02:59 Amlodipine Besylate (Norvasc) 5 mg DAILY NG 06/23/19 12:00 07/23/19 11:59 06/28/19 08:38 Aspirin (ASA) 81 mg DAILY ORAL 06/16/19 09:00 07/31/19 08:59 06/28/19 08:39 Docusate Sodium (Colace) 100 mg DAILY ORAL 06/16/19 09:00 07/16/19 08:59 06/28/19 08:39 Donepezil HCl (Aricept) 5 mg DAILY ORAL 06/16/19 09:00 07/16/19 08:59 06/28/19 08:38 Enoxaparin Sodium (Lovenox) 40 mg DAILY SUBQ 06/16/19 09:00 09/14/19 08:59 06/28/19 08:40 Hydralazine HCl (Apresoline) 25 mg Q4H PRN ORAL For blood pressure over 160 sy 06/22/19 13:30 09/20/19 13:29 Memantine (Namenda) 10 mg TWICE A DAY ORAL 06/16/19 09:00 07/16/19 08:59 06/28/19 17:02 Metoprolol Succinate (Toprol XL) 25 mg DAILY ORAL 06/19/19 19:15 09/17/19 19:14 06/28/19 08:39 Mirtazapine (Remeron) 15 mg BEDTIME ORAL 06/21/19 21:00 09/19/19 20:59 06/28/19 21:20 Ondansetron HCl (Zofran) 4 mg Q6H PRN IVP Nausea & Vomiting 06/16/19 03:00 07/16/19 02:59 Polyethylene Glycol (Miralax) 17 gm BEDTIME ORAL 06/17/19 21:00 07/17/19 20:59 06/28/19 21:21 Last 24 Hour Vital Signs Date Time Temp Pulse Resp B/P (MAP) Pulse Ox O2 Delivery O2 Flow Rate FiO2 06/29/19 00:00 86 06/29/19 00:00 97.4 76 18 141/78 (99) 95 06/28/19 21:49 97 Nasal Cannula 2.0 06/28/19 21:00 Nasal Cannula 2.0 06/28/19 20:00 97.6 84 26 138/71 (93) 93 06/28/19 20:00 90 06/28/19 16:00 98.6 60 20 149/81 (103) 97 06/28/19 16:00 78 06/28/19 12:00 72 06/28/19 11:31 97.6 65 18 151/93 (112) 97 06/28/19 09:00 Nasal Cannula 2.0 06/28/19 08:39 64 144/83 06/28/19 08:38 64 144/83 06/28/19 08:00 72 06/28/19 08:00 96.7 64 19 144/83 (103) 97 06/28/19 04:00 68 06/28/19 04:00 97.5 75 20 144/95 (111) 94 06/28/19 00:00 97.7 74 20 137/78 (97) 97 06/28/19 00:00 74 06/27/19 21:00 Nasal Cannula 2.0 06/27/19 20:00 76 06/27/19 20:00 98.1 85 20 134/74 (94) 97 06/27/19 16:00 82 06/27/19 16:00 98.2 87 20 154/77 (102) 97 06/27/19 12:00 85 06/27/19 12:00 97.1 85 18 135/78 (97) 95 06/27/19 09:00 Nasal Cannula 2.0 06/27/19 09:00 85 109/69 06/27/19 09:00 85 109/69 06/27/19 08:00 98.4 87 18 135/74 (94) 94 06/27/19 08:00 79 Intake and Output 06/28/19 06/29/19 19:00 07:00 # Voids 3 Labs Test 06/26/19 07:10 06/27/19 06:08 06/28/19 06:10 White Blood Count 10.9 K/UL (4.8-10.8) 7.7 K/UL (4.8-10.8) 7.8 K/UL (4.8-10.8) Red Blood Count 4.66 M/UL (4.70-6.10) 4.34 M/UL (4.70-6.10) 4.83 M/UL (4.70-6.10) Hemoglobin 14.0 G/DL (14.2-18.0) 13.2 G/DL (14.2-18.0) 14.4 G/DL (14.2-18.0) Hematocrit 41.7 % (42.0-52.0) 39.0 % (42.0-52.0) 43.9 % (42.0-52.0) Mean Corpuscular Volume 89 FL (80-99) 90 FL (80-99) 91 FL (80-99) Mean Corpuscular Hemoglobin 30.0 PG (27.0-31.0) 30.3 PG (27.0-31.0) 29.7 PG (27.0-31.0) Mean Corpuscular Hemoglobin Concent 33.6 G/DL (32.0-36.0) 33.7 G/DL (32.0-36.0) 32.7 G/DL (32.0-36.0) Red Cell Distribution Width 12.5 % (11.6-14.8) 12.8 % (11.6-14.8) 12.8 % (11.6-14.8) Platelet Count 409 K/UL (150-450) 376 K/UL (150-450) 385 K/UL (150-450) Mean Platelet Volume 5.5 FL (6.5-10.1) 5.8 FL (6.5-10.1) 5.5 FL (6.5-10.1) Neutrophils (%) (Auto) % (45.0-75.0) 75.7 % (45.0-75.0) 63.6 % (45.0-75.0) Lymphocytes (%) (Auto) % (20.0-45.0) 16.1 % (20.0-45.0) 28.5 % (20.0-45.0) Monocytes (%) (Auto) % (1.0-10.0) 7.3 % (1.0-10.0) 6.5 % (1.0-10.0) Eosinophils (%) (Auto) % (0.0-3.0) 0.2 % (0.0-3.0) 0.3 % (0.0-3.0) Basophils (%) (Auto) % (0.0-2.0) 0.6 % (0.0-2.0) 1.1 % (0.0-2.0) Differential Total Cells Counted 100 Neutrophils % (Manual) 92 % (45-75) Lymphocytes % (Manual) 4 % (20-45) Monocytes % (Manual) 4 % (1-10) Eosinophils % (Manual) 0 % (0-3) Basophils % (Manual) 0 % (0-2) Band Neutrophils 0 % (0-8) Platelet Estimate Adequate Platelet Morphology Normal Red Blood Cell Morphology Normal Sodium Level 138 MMOL/L (136-145) 141 MMOL/L (136-145) 142 MMOL/L (136-145) Potassium Level 4.3 MMOL/L (3.5-5.1) 4.5 MMOL/L (3.5-5.1) 4.9 MMOL/L (3.5-5.1) Chloride Level 102 MMOL/L (98-107) 104 MMOL/L (98-107) 104 MMOL/L (98-107) Carbon Dioxide Level 29 MMOL/L (21-32) 31 MMOL/L (21-32) 33 MMOL/L (21-32) Anion Gap 7 mmol/L (5-15) 6 mmol/L (5-15) 5 mmol/L (5-15) Blood Urea Nitrogen 17 mg/dL (7-18) 21 mg/dL (7-18) 19 mg/dL (7-18) Creatinine 0.8 MG/DL (0.55-1.30) 0.8 MG/DL (0.55-1.30) 0.8 MG/DL (0.55-1.30) Estimat Glomerular Filtration Rate > 60 mL/min (>60) > 60 mL/min (>60) > 60 mL/min (>60) Glucose Level 178 MG/DL (74-106) 126 MG/DL (74-106) 134 MG/DL (74-106) Calcium Level 8.8 MG/DL (8.5-10.1) 8.6 MG/DL (8.5-10.1) 8.8 MG/DL (8.5-10.1) Total Bilirubin 0.4 MG/DL (0.2-1.0) 0.4 MG/DL (0.2-1.0) Direct Bilirubin 0.2 MG/DL (0.0-0.3) Aspartate Amino Transf (AST/SGOT) 77 U/L (15-37) 55 U/L (15-37) Alanine Aminotransferase (ALT/SGPT) 76 U/L (12-78) 55 U/L (12-78) Alkaline Phosphatase 145 U/L (46-116) 148 U/L (46-116) Total Protein 8.2 G/DL (6.4-8.2) 7.7 G/DL (6.4-8.2) Albumin 2.3 G/DL (3.4-5.0) 2.0 G/DL (3.4-5.0) Phosphorus Level 3.0 MG/DL (2.5-4.9) Magnesium Level 2.4 MG/DL (1.8-2.4) Globulin 5.7 g/dL Albumin/Globulin Ratio 0.4 (1.0-2.7) Height (Feet): 5 Height (Inches): 2.00 Weight (Pounds): 130 Objective Physical Exam General: Awake and somewhat confused, no acute distress HEENT: NC/AT. EOMI. Cardiovascular: RRR. S1 and S2 normal. No murmur appreciated Resp: Mild tachypnea, normal work of breathing. On 2 L nasal cannula. Abdomen: Abdomen is soft, nondistended. Nontender Skin: Intact. No abrasions, laceration MSK: Normal tone and bulk. Moving all extremities Neuro: Awake and somewhat confused. Poor historian Geraldo Galvez MD Jun 29, 2019 05:55
[2019-06-29 07:16] LABS: BASOPHILS % (AUTO) 0.9 % (0.0-2.0); EOSINOPHILS % (AUTO) 0.2 % (0.0-3.0); HEMATOCRIT 48.3 % (42.0-52.0); HEMOGLOBIN 16.1 G/DL (14.2-18.0); LYMPHOCYTES % (AUTO) 22.7 % (20.0-45.0); MEAN CORPUSCULAR VOLUME 90 FL (80-99); MONOCYTES % (AUTO) 9.8 % (1.0-10.0); NEUTROPHILS % (AUTO) 66.4 % (45.0-75.0); PLATELET COUNT 409 K/UL (150-450); RED BLOOD COUNT 5.36 M/UL (4.70-6.10); RED CELL DISTRIBUTION WIDTH 13.1 % (11.6-14.8); WHITE BLOOD COUNT 9.1 K/UL (4.8-10.8)
--- NOTE | 2019-06-29 07:19 | NUR ---
HAND-OFF: Report given to MANOLO Monahan. Plan of care endorsed. NGT flushed.
--- NOTE | 2019-06-29 07:20 | NUR ---
NURSE NOTES: Received report from MANOLO Alcala. Patient AOx1, open eyes spontaneously. Patient on 2L oxygen via NC, SR with HR 86. Patient on bilateral wrist restraints, able to move, cap refill <3 sec. IV on left FA 20G, asymptomatic, paten, intact. Bed in lowest position, side rails upx2, call light within reach, bed alarm on. Will continue to monitor.
[2019-06-29 07:38] LABS: ALANINE AMINOTRANSFERASE 89 U/L (12-78); ALBUMIN 2.4 G/DL (3.4-5.0); ALBUMIN/GLOBULIN RATIO 0.3 (1.0-2.7); ALKALINE PHOSPHATASE 208 U/L (46-116); ANION GAP 7 mmol/L (5-15); ASPARTATE AMINO TRANSFERASE 79 U/L (15-37); BILIRUBIN,TOTAL 0.5 MG/DL (0.2-1.0); BLOOD UREA NITROGEN 15 mg/dL (7-18); CALCIUM 9.2 MG/DL (8.5-10.1); CARBON DIOXIDE 32 MMOL/L (21-32); CHLORIDE 101 MMOL/L (98-107); CREATININE 0.7 MG/DL (0.55-1.30); POTASSIUM 4.4 MMOL/L (3.5-5.1); SODIUM 140 MMOL/L (136-145)
[2019-06-29 08:00] VITALS: BP 162/88
--- NOTE | 2019-06-29 08:47 | General Progress Note ---
Assessment/Plan Status: progressing, unchanged Assessment/Plan: 1. History of dementia. 2. CHF. 3. Hypertension. 4. BPH. 5. Constipation. 6. elevated LFTS 7. AMI 8. gallstones improving LFTS hep C positive>>> HCV RNA positive>>>patient needs out patient fu for treatment fu cardiology repeat labs in am ngt in place ngTF on COVID isolation patient needs GT speech eval appreciated. patient has passed swallow eval but refuses to eat plan PEG when off of isolation Subjective ROS Limited/Unobtainable: No Allergies: Coded Allergies: No Known Allergies (Unverified , 06/15/19) Objective Last 24 Hour Vital Signs Date Time Temp Pulse Resp B/P (MAP) Pulse Ox O2 Delivery O2 Flow Rate FiO2 06/29/19 06:24 171/98 06/29/19 04:00 86 06/29/19 04:00 96.9 82 20 171/98 (122) 98 06/29/19 00:00 86 06/29/19 00:00 97.4 76 18 141/78 (99) 95 06/28/19 21:49 97 Nasal Cannula 2.0 28 06/28/19 21:00 Nasal Cannula 2.0 06/28/19 20:00 97.6 84 26 138/71 (93) 93 06/28/19 20:00 90 06/28/19 16:00 98.6 60 20 149/81 (103) 97 06/28/19 16:00 78 06/28/19 12:00 72 06/28/19 11:31 97.6 65 18 151/93 (112) 97 06/28/19 09:00 Nasal Cannula 2.0 Intake and Output 06/28/19 06/29/19 19:00 07:00 # Voids 3 2 # Bowel Movements 1 Laboratory Tests 06/29/19 03:30: White Blood Count 9.1, Red Blood Count 5.36, Hemoglobin 16.1, Hematocrit 48.3, Mean Corpuscular Volume 90, Mean Corpuscular Hemoglobin 30.0, Mean Corpuscular Hemoglobin Concent 33.2, Red Cell Distribution Width 13.1, Platelet Count 409, Mean Platelet Volume 5.0L, Neutrophils (%) (Auto) 66.4, Lymphocytes (%) (Auto) 22.7, Monocytes (%) (Auto) 9.8, Eosinophils (%) (Auto) 0.2, Basophils (%) (Auto ) 0.9, Sodium Level 140, Potassium Level 4.4, Chloride Level 101, Carbon Dioxide Level 32, Anion Gap 7, Blood Urea Nitrogen 15, Creatinine 0.7, Estimat Glomerular Filtration Rate > 60, Glucose Level 98, Calcium Level 9.2, Total Bilirubin 0.5, Aspartate Amino Transf (AST/SGOT) 79H, Alanine Aminotransferase ( ALT/SGPT) 89H, Alkaline Phosphatase 208H, Total Protein 9.7H, Albumin 2.4L, Globulin 7.3, Albumin/Globulin Ratio 0.3L Height (Feet): 5 Height (Inches): 2.00 Weight (Pounds): 132 General Appearance: alert EENT: normal ENT inspection Neck: supple Cardiovascular: normal rate Respiratory/Chest: decreased breath sounds Abdomen: normal bowel sounds, non tender, soft Extremities: non-tender Perry Quiroga MD Jun 29, 2019 08:47
[2019-06-29] MEDS: Docusate 100mg cap ORAL SCH (09:31)
[2019-06-29] MEDS: Donepezil 5mg Tab ORAL SCH (09:31)
[2019-06-29] MEDS: Aspirin Baby 81mg ORAL SCH (09:32)
[2019-06-29] MEDS: Memantine 10mg tab ORAL SCH (09:32)
[2019-06-29] MEDS: Metoprolol Succinate XL 25mg tab ORAL SCH (09:32)
[2019-06-29] MEDS: Enoxaparin 40mg Inj SUBQ SCH (09:33)
--- NOTE | 2019-06-29 10:32 | NUR ---
CASE MANAGEMENT:REVIEW 06/28/19 SI: COVID 19 PNEUMONIA. DEMENTIA 97.1 84 18 109/69 94% ON 2L/NC H/H-13.2/39.0 BUN+21 IS: NORVASC PO QD REMERON PO QHS TOPROL XL PO QD LOVENOX SQ QD ASA PO QD ARICEPT PO QD NAMENDA PO BID : TELEMETRY STATUS DCP: FROM [facility] PLAN: COVID (+) X4 PATIENT NEEDS PEG...PEG WILL BE DONE ONCE PATIENT IS OUT OF ISOLATION
[2019-06-29 12:00] VITALS: BP 154/82
--- NOTE | 2019-06-29 12:43 | Infectious Diseases Prog Note ---
Assessment/Plan Assessment/Plan IMPRESSION: COIVD19 Pneumonia, Positive on : 06/14, 06/20, 06/22, 06/25 Cholelithiasis and elevated transaminase level, acidosis, dementia with behavioral problem. Dysphagia Hepatitis C RECOMMENDATION: We will repeat COVID19 test Subjective ROS Limited/Unobtainable: Yes Neurologic: Reports: confusion, other - on restraint Allergies: Coded Allergies: No Known Allergies (Unverified , 06/15/19) Objective Vital Signs Last 24 Hour Vital Signs Date Time Temp Pulse Resp B/P (MAP) Pulse Ox O2 Delivery O2 Flow Rate FiO2 06/29/19 09:32 86 162/88 06/29/19 09:32 86 162/88 06/29/19 08:00 97.0 86 20 162/88 (112) 99 06/29/19 06:24 171/98 06/29/19 04:00 86 06/29/19 04:00 96.9 82 20 171/98 (122) 98 06/29/19 00:00 86 06/29/19 00:00 97.4 76 18 141/78 (99) 95 06/28/19 21:49 97 Nasal Cannula 2.0 28 06/28/19 21:00 Nasal Cannula 2.0 06/28/19 20:00 97.6 84 26 138/71 (93) 93 06/28/19 20:00 90 06/28/19 16:00 98.6 60 20 149/81 (103) 97 06/28/19 16:00 78 Height (Feet): 5 Height (Inches): 2.00 Weight (Pounds): 132 General Appearance: no acute distress HEENT: mucous membranes moist Respiratory/Chest: lungs clear Cardiovascular: normal rate Abdomen: soft, non tender, other - NG tube Neurologic/Psychiatric: disoriented Microbiology Date/Time Source Procedure Growth Status 06/26/19 17:30 Nasopharynx Coronavirus COVID-19 PCR ([facility]) - Final Complete Laboratory Tests Test 06/29/19 03:30 White Blood Count 9.1 K/UL (4.8-10.8) Red Blood Count 5.36 M/UL (4.70-6.10) Hemoglobin 16.1 G/DL (14.2-18.0) Hematocrit 48.3 % (42.0-52.0) Mean Corpuscular Volume 90 FL (80-99) Mean Corpuscular Hemoglobin 30.0 PG (27.0-31.0) Mean Corpuscular Hemoglobin Concent 33.2 G/DL (32.0-36.0) Red Cell Distribution Width 13.1 % (11.6-14.8) Platelet Count 409 K/UL (150-450) Mean Platelet Volume 5.0 FL (6.5-10.1) L Neutrophils (%) (Auto) 66.4 % (45.0-75.0) Lymphocytes (%) (Auto) 22.7 % (20.0-45.0) Monocytes (%) (Auto) 9.8 % (1.0-10.0) Eosinophils (%) (Auto) 0.2 % (0.0-3.0) Basophils (%) (Auto) 0.9 % (0.0-2.0) Sodium Level 140 MMOL/L (136-145) Potassium Level 4.4 MMOL/L (3.5-5.1) Chloride Level 101 MMOL/L (98-107) Carbon Dioxide Level 32 MMOL/L (21-32) Anion Gap 7 mmol/L (5-15) Blood Urea Nitrogen 15 mg/dL (7-18) Creatinine 0.7 MG/DL (0.55-1.30) Estimat Glomerular Filtration Rate > 60 mL/min (>60) Glucose Level 98 MG/DL (74-106) Calcium Level 9.2 MG/DL (8.5-10.1) Total Bilirubin 0.5 MG/DL (0.2-1.0) Aspartate Amino Transf (AST/SGOT) 79 U/L (15-37) H Alanine Aminotransferase (ALT/SGPT) 89 U/L (12-78) H Alkaline Phosphatase 208 U/L (46-116) H Total Protein 9.7 G/DL (6.4-8.2) H Albumin 2.4 G/DL (3.4-5.0) L Globulin 7.3 g/dL Albumin/Globulin Ratio 0.3 (1.0-2.7) L Current Medications Medications (Trade) Dose Ordered Sig/Kaylan Route PRN Reason Start Time Stop Time Status Last Admin Dose Admin Acetaminophen (Tylenol) 500 mg Q6H PRN ORAL For Pain 06/16/19 00:15 07/16/19 00:14 Acetaminophen (Tylenol) 650 mg Q6H PRN ORAL For Headache 06/16/19 03:00 07/16/19 02:59 06/26/19 09:35 Albuterol Sulfate (Proventil MDI) 2 puff Q6H PRN INH Shortness of Breath 06/16/19 03:00 09/14/19 02:59 Amlodipine Besylate (Norvasc) 5 mg DAILY NG 06/23/19 12:00 07/23/19 11:59 06/29/19 09:32 Aspirin (ASA) 81 mg DAILY ORAL 06/16/19 09:00 07/31/19 08:59 06/29/19 09:32 Docusate Sodium (Colace) 100 mg DAILY ORAL 06/16/19 09:00 07/16/19 08:59 06/29/19 09:31 Donepezil HCl (Aricept) 5 mg DAILY ORAL 06/16/19 09:00 07/16/19 08:59 06/29/19 09:31 Enoxaparin Sodium (Lovenox) 40 mg DAILY SUBQ 06/16/19 09:00 09/14/19 08:59 06/29/19 09:33 Hydralazine HCl (Apresoline) 25 mg Q4H PRN ORAL For blood pressure over 160 sy 06/22/19 13:30 09/20/19 13:29 06/29/19 06:24 Memantine (Namenda) 10 mg TWICE A DAY ORAL 06/16/19 09:00 07/16/19 08:59 06/29/19 09:32 Metoprolol Succinate (Toprol XL) 25 mg DAILY ORAL 06/19/19 19:15 09/17/19 19:14 06/29/19 09:32 Mirtazapine (Remeron) 15 mg BEDTIME ORAL 06/21/19 21:00 09/19/19 20:59 06/28/19 21:20 Ondansetron HCl (Zofran) 4 mg Q6H PRN IVP Nausea & Vomiting 06/16/19 03:00 07/16/19 02:59 Polyethylene Glycol (Miralax) 17 gm BEDTIME ORAL 06/17/19 21:00 07/17/19 20:59 06/28/19 21:21 Benigno Betancourt MD Jun 29, 2019 12:43
--- NOTE | 2019-06-29 13:42 | Nephrology Progress Note ---
Assessment/Plan Problem List: (1) Dehydration (2) Electrolyte imbalance (3) Elevated LFTs Assessment: Improving (4) HTN (hypertension) (5) Suspected 2019 novel coronavirus infection Assessment Electrolyte imbalance Dehydration and free water deficit Pneumonia suspected COVID-19 infection Elevated troponin Dementia Cholelithiasis and elevated liver enzymes BPH Hypertension Plan Positive for COVID-19 DC IV fluid and PO KCL Add Norvasc Hydralazine as needed for blood pressure over 160 systolic Monitor electrolyte Continue per consultants Urine analysis ordered as none is available since admission Per orders Subjective ROS Limited/Unobtainable: No Constitutional: Reports: malaise, weakness Objective Objective Last 24 Hour Vital Signs Date Time Temp Pulse Resp B/P (MAP) Pulse Ox O2 Delivery O2 Flow Rate FiO2 06/29/19 09:32 86 162/88 06/29/19 09:32 86 162/88 06/29/19 08:00 97.0 86 20 162/88 (112) 99 06/29/19 06:24 171/98 06/29/19 04:00 86 06/29/19 04:00 96.9 82 20 171/98 (122) 98 06/29/19 00:00 86 06/29/19 00:00 97.4 76 18 141/78 (99) 95 06/28/19 21:49 97 Nasal Cannula 2.0 28 06/28/19 21:00 Nasal Cannula 2.0 06/28/19 20:00 97.6 84 26 138/71 (93) 93 06/28/19 20:00 90 06/28/19 16:00 98.6 60 20 149/81 (103) 97 06/28/19 16:00 78 Intake and Output 06/28/19 06/29/19 19:00 07:00 # Voids 3 2 # Bowel Movements 1 Current Medications Medications (Trade) Dose Ordered Sig/Kaylan Route PRN Reason Start Time Stop Time Status Last Admin Dose Admin Acetaminophen (Tylenol) 500 mg Q6H PRN ORAL For Pain 06/16/19 00:15 07/16/19 00:14 Acetaminophen (Tylenol) 650 mg Q6H PRN ORAL For Headache 06/16/19 03:00 07/16/19 02:59 06/26/19 09:35 Albuterol Sulfate (Proventil MDI) 2 puff Q6H PRN INH Shortness of Breath 06/16/19 03:00 09/14/19 02:59 Amlodipine Besylate (Norvasc) 5 mg DAILY NG 06/23/19 12:00 07/23/19 11:59 06/29/19 09:32 Aspirin (ASA) 81 mg DAILY ORAL 06/16/19 09:00 07/31/19 08:59 06/29/19 09:32 Docusate Sodium (Colace) 100 mg DAILY ORAL 06/16/19 09:00 07/16/19 08:59 06/29/19 09:31 Donepezil HCl (Aricept) 5 mg DAILY ORAL 06/16/19 09:00 07/16/19 08:59 06/29/19 09:31 Enoxaparin Sodium (Lovenox) 40 mg DAILY SUBQ 06/16/19 09:00 09/14/19 08:59 06/29/19 09:33 Hydralazine HCl (Apresoline) 25 mg Q4H PRN ORAL For blood pressure over 160 sy 06/22/19 13:30 09/20/19 13:29 06/29/19 06:24 Memantine (Namenda) 10 mg TWICE A DAY ORAL 06/16/19 09:00 07/16/19 08:59 06/29/19 09:32 Metoprolol Succinate (Toprol XL) 25 mg DAILY ORAL 06/19/19 19:15 09/17/19 19:14 06/29/19 09:32 Mirtazapine (Remeron) 15 mg BEDTIME ORAL 06/21/19 21:00 09/19/19 20:59 06/28/19 21:20 Ondansetron HCl (Zofran) 4 mg Q6H PRN IVP Nausea & Vomiting 06/16/19 03:00 07/16/19 02:59 Polyethylene Glycol (Miralax) 17 gm BEDTIME ORAL 06/17/19 21:00 07/17/19 20:59 06/28/19 21:21 (1) Elevated LFTs (2) Elevated troponin (3) Pneumonia (4) Suspected 2019 novel coronavirus infection Laboratory Tests 06/29/19 03:30: White Blood Count 9.1, Red Blood Count 5.36, Hemoglobin 16.1, Hematocrit 48.3, Mean Corpuscular Volume 90, Mean Corpuscular Hemoglobin 30.0, Mean Corpuscular Hemoglobin Concent 33.2, Red Cell Distribution Width 13.1, Platelet Count 409, Mean Platelet Volume 5.0L, Neutrophils (%) (Auto) 66.4, Lymphocytes (%) (Auto) 22.7, Monocytes (%) (Auto) 9.8, Eosinophils (%) (Auto) 0.2, Basophils (%) (Auto ) 0.9, Sodium Level 140, Potassium Level 4.4, Chloride Level 101, Carbon Dioxide Level 32, Anion Gap 7, Blood Urea Nitrogen 15, Creatinine 0.7, Estimat Glomerular Filtration Rate > 60, Glucose Level 98, Calcium Level 9.2, Total Bilirubin 0.5, Aspartate Amino Transf (AST/SGOT) 79H, Alanine Aminotransferase ( ALT/SGPT) 89H, Alkaline Phosphatase 208H, Total Protein 9.7H, Albumin 2.4L, Globulin 7.3, Albumin/Globulin Ratio 0.3L Height (Feet): 5 Height (Inches): 2.00 Weight (Pounds): 132 General Appearance: no apparent distress, lethargic Cardiovascular: tachycardia Respiratory/Chest: decreased breath sounds Abdomen: soft Drew Gonzalez MD Jun 29, 2019 13:42
--- NOTE | 2019-06-29 13:42 | NUR ---
DISCHARGE PLANNING COVID POSITIVE PATIENT PLAN WAS FOR PATIENT TO RETURN TO [facility] YESTERDAY DISCHARGE HELD BECAUSE SNF CANNOT ACCEPT PATIENT WITH NG TUBE PATIENT CAN SWALLOW BUT REFUSES TO EAT PLAN IS FOR PEG PLACEMENT ONCE PATIENT IS OUT OF ISOLATION DISCUSSED WITH DR BUSH....NO DISCHARGE RESOLUTION
[2019-06-29 16:00] VITALS: BP 152/87
--- NOTE | 2019-06-29 16:41 | NUR ---
TRANSFER TO FLOOR: Patient transferred to , per Dr. Malhotra. Report given to MANOLO Michaels. No Belongings and medications given to MANOLO Malhotra. Family and or S/O informed of transfer.
--- NOTE | 2019-06-29 17:24 | NUR ---
Report received from Taniya FRENCH. Patient transferred from Tele, AxOx1, Frisian-speaking, not in distress, no outward sx of pain, O2 at 2lpm via NC sats 98%. Patient has NGT on left nares, level undetermined, running Glucerna 1.5 @ 43ml/hr. PIV on left forearm patent and intact. Bilateral wrist restraints on for pulling out tubes, good circulation noted, pulses palpable. Patient is incontinent, noted urine output on pad. Skin is intact, no redness or open wounds noted. Optifoam applied for prevention. Bed low and locked, siderails upx 2, will continue to monitor.
[2019-06-29] MEDS ORDERED: HydrALAZINE 25mg tab ORAL PRN (17:30)
[2019-06-29] MEDS ORDERED: Memantine 10mg tab ORAL SCH (18:00)
[2019-06-29] MEDS ORDERED: Albuterol 90mcg Inhaler 8gm INH PRN (18:00)
[2019-06-29] MEDS ORDERED: Acetaminophen 500mg (ES) tab ORAL PRN (18:15)
--- NOTE | 2019-06-29 19:22 | NUR ---
NURSE NOTES: Report received from Xenia FRENCH. Patient is awake, only alert to self. Patient noted to be on 2 liters of oxygen via nasal canula. Does not appear to be in respiratory distress at this time. Patient noted to have NG tube inserted through left nare with Glucerna 1.5 running at 40 cc/hr, this is the goal rate. Patient noted to be in bilateral softer wrist restraints. No edema in extremities noted, pules present, good circulation. Restraints are due to patient pulling at lines per Xenia FRENCH. Bed locked, in lowest position, and bed alarm on. Will continue to follow plan of care.
--- NOTE | 2019-06-29 19:25 | NUR ---
HAND-OFF: Report given to Alex FRENCH. Endorsed that patient was swabbed for Covid today 06/28. Specimen sent down to lab.
[2019-06-29 20:00] VITALS: BP 125/84
[2019-06-29] MEDS: Miralax 17gm pkt ORAL SCH (20:08)
--- NOTE | 2019-06-29 21:36 | General Progress Note ---
Assessment/Plan Problem List: (1) Elevated troponin ICD Codes: R79.89 - Other specified abnormal findings of blood chemistry SNOMED: 880271549, 376495871, 418904194 (2) Elevated LFTs ICD Codes: R79.89 - Other specified abnormal findings of blood chemistry SNOMED: 831046090, 319238356, 591013313 (3) Pneumonia ICD Codes: J18.9 - Pneumonia, unspecified organism SNOMED: 999932908, 373991644, 675800465 (4) Suspected 2019 novel coronavirus infection ICD Codes: R68.89 - Other general symptoms and signs SNOMED: 627191087 Status: progressing, unchanged Assessment/Plan: covid positive pna resp insuff poor appetite recheck trop elevated lft weak feeding route per gi di reviewed chart and labs Subjective ROS Limited/Unobtainable: Yes Allergies: Coded Allergies: No Known Allergies (Unverified , 06/15/19) Objective Last 24 Hour Vital Signs Date Time Temp Pulse Resp B/P (MAP) Pulse Ox O2 Delivery O2 Flow Rate FiO2 06/29/19 21:00 Nasal Cannula 2.0 06/29/19 20:00 97.6 78 22 125/84 (98) 97 06/29/19 16:00 97.2 78 20 152/87 (108) 98 06/29/19 12:00 97.2 89 20 154/82 (106) 98 06/29/19 12:00 75 06/29/19 09:32 86 162/88 06/29/19 09:32 86 162/88 06/29/19 09:00 Nasal Cannula 2.0 06/29/19 08:00 97.0 86 20 162/88 (112) 99 06/29/19 08:00 84 06/29/19 06:24 171/98 06/29/19 04:00 86 06/29/19 04:00 96.9 82 20 171/98 (122) 98 06/29/19 00:00 86 06/29/19 00:00 97.4 76 18 141/78 (99) 95 06/28/19 21:49 97 Nasal Cannula 2.0 28 Intake and Output 06/28/19 06/29/19 19:00 07:00 # Voids 3 2 # Bowel Movements 1 Laboratory Tests 06/29/19 03:30: White Blood Count 9.1, Red Blood Count 5.36, Hemoglobin 16.1, Hematocrit 48.3, Mean Corpuscular Volume 90, Mean Corpuscular Hemoglobin 30.0, Mean Corpuscular Hemoglobin Concent 33.2, Red Cell Distribution Width 13.1, Platelet Count 409, Mean Platelet Volume 5.0L, Neutrophils (%) (Auto) 66.4, Lymphocytes (%) (Auto) 22.7, Monocytes (%) (Auto) 9.8, Eosinophils (%) (Auto) 0.2, Basophils (%) (Auto ) 0.9, Sodium Level 140, Potassium Level 4.4, Chloride Level 101, Carbon Dioxide Level 32, Anion Gap 7, Blood Urea Nitrogen 15, Creatinine 0.7, Estimat Glomerular Filtration Rate > 60, Glucose Level 98, Calcium Level 9.2, Total Bilirubin 0.5, Aspartate Amino Transf (AST/SGOT) 79H, Alanine Aminotransferase ( ALT/SGPT) 89H, Alkaline Phosphatase 208H, Total Protein 9.7H, Albumin 2.4L, Globulin 7.3, Albumin/Globulin Ratio 0.3L Height (Feet): 5 Height (Inches): 2.00 Weight (Pounds): 132 Gorge Malhotra MD Jun 29, 2019 21:36
--- NOTE | 2019-06-29 22:44 | Cardiology Progress Note ---
Assessment/Plan Assessment/Plan 1. Dyspnea due to possibly combination of COVID-19 pneumonia in addition to with acute HFpEF, continue lasix and metoprolol. LVEF is at 65%. 2. Possible [id number] myocardial infarction or elevated troponin I level could be secondary to myonecrosis due to CHF. 3. HCV infection. 4. Elevated LFTs. Subjective Subjective Sinus rhythm at rate of 78. Objective Last 24 Hour Vital Signs Date Time Temp Pulse Resp B/P (MAP) Pulse Ox O2 Delivery O2 Flow Rate FiO2 06/29/19 21:00 Nasal Cannula 2.0 06/29/19 20:00 97.6 78 22 125/84 (98) 97 06/29/19 16:00 97.2 78 20 152/87 (108) 98 06/29/19 12:00 97.2 89 20 154/82 (106) 98 06/29/19 12:00 75 06/29/19 09:32 86 162/88 06/29/19 09:32 86 162/88 06/29/19 09:00 Nasal Cannula 2.0 06/29/19 08:00 97.0 86 20 162/88 (112) 99 06/29/19 08:00 84 06/29/19 06:24 171/98 06/29/19 04:00 86 06/29/19 04:00 96.9 82 20 171/98 (122) 98 06/29/19 00:00 86 06/29/19 00:00 97.4 76 18 141/78 (99) 95 Intake and Output 06/28/19 06/29/19 19:00 07:00 # Voids 3 2 # Bowel Movements 1 2D Echo: LVEF 65%, grade I LVDD Laboratory Tests Test 06/29/19 03:30 White Blood Count 9.1 K/UL (4.8-10.8) Red Blood Count 5.36 M/UL (4.70-6.10) Hemoglobin 16.1 G/DL (14.2-18.0) Hematocrit 48.3 % (42.0-52.0) Mean Corpuscular Volume 90 FL (80-99) Mean Corpuscular Hemoglobin 30.0 PG (27.0-31.0) Mean Corpuscular Hemoglobin Concent 33.2 G/DL (32.0-36.0) Red Cell Distribution Width 13.1 % (11.6-14.8) Platelet Count 409 K/UL (150-450) Mean Platelet Volume 5.0 FL (6.5-10.1) L Neutrophils (%) (Auto) 66.4 % (45.0-75.0) Lymphocytes (%) (Auto) 22.7 % (20.0-45.0) Monocytes (%) (Auto) 9.8 % (1.0-10.0) Eosinophils (%) (Auto) 0.2 % (0.0-3.0) Basophils (%) (Auto) 0.9 % (0.0-2.0) Sodium Level 140 MMOL/L (136-145) Potassium Level 4.4 MMOL/L (3.5-5.1) Chloride Level 101 MMOL/L (98-107) Carbon Dioxide Level 32 MMOL/L (21-32) Anion Gap 7 mmol/L (5-15) Blood Urea Nitrogen 15 mg/dL (7-18) Creatinine 0.7 MG/DL (0.55-1.30) Estimat Glomerular Filtration Rate > 60 mL/min (>60) Glucose Level 98 MG/DL (74-106) Calcium Level 9.2 MG/DL (8.5-10.1) Total Bilirubin 0.5 MG/DL (0.2-1.0) Aspartate Amino Transf (AST/SGOT) 79 U/L (15-37) H Alanine Aminotransferase (ALT/SGPT) 89 U/L (12-78) H Alkaline Phosphatase 208 U/L (46-116) H Total Protein 9.7 G/DL (6.4-8.2) H Albumin 2.4 G/DL (3.4-5.0) L Globulin 7.3 g/dL Albumin/Globulin Ratio 0.3 (1.0-2.7) L Objective HEENT: Atraumatic and normocephalic. Anicteric. Pupils are equal, round, and reactive to light and accommodation. Extraocular muscles intact. NECK: JVP is less than 5 cm. No carotid bruit. Carotid upstroke is 2+ bilaterally. CARDIOVASCULAR: Normal S1 and S2. Regular rate and rhythm. No murmurs, gallops, or rubs. PMI is at fourth intercostal space at midclavicular line. LUNGS: Diminished breath sounds in both bases with associated crackles. ABDOMEN: Soft, nontender, and nondistended. No hepatosplenomegaly. Positive bowel sounds. EXTREMITIES: No evidence of edema, clubbing, or cyanosis. Rolf Moreno MD Jun 29, 2019 22:44
--- NOTE | 2019-06-29 23:44 | Progress Note ---
DATE: 06/29/2019 SUBJECTIVE: The patient is confused, disoriented, awake. He was tested for COVID-19 today. The patient is on bilateral soft restraints, episodes of agitation. MENTAL STATUS EXAMINATION: The patient is alert, disoriented. Mood is neutral. Affect is flat. Thought process is concrete. Thought content, no suicidal or homicidal ideation. Cognition is impaired. Insight and judgment is impaired. ASSESSMENT: Dementia with behavior disturbance. PLAN: 1. Continue to monitor the symptoms. 2. Bilateral restrains. 3. Remeron 15 . Karlo Santiago M.D. DR: Kell JOB#: [id number] CC:
[2019-06-30] VITALS: BP 119/82
--- NOTE | 2019-06-30 00:02 | Pulmonology Progress Note ---
Assessment/Plan Assessment/Plan Pulmonary Progress Note HPI: Patient is a 88-year-old male history of Dementia, Congestive Heart Failure , admitted from group home facility with Pneumonia, COVID 19 positive, noted to have fever and shortness of breath, chest congestion and tightness for 2 days. Noted to be confused in the ED. Has been febrile with low-grade temperatures for the past 2 days. No vomiting or diarrhea or abdominal pain. Stable O2 requirements - 2L NC, stable Pulmonary Status clinically Slight worsening of infiltrates on CXR Seen earlier Seen 06/29/2019 PMH: Dementia, Congestive Heart Failure Social Hx: Retirement Resident FHx: NC Allergies: No Known Allergies All Other Systems: limited - AMS Physical Exam Vital signs noted General: Awake and somewhat confused, no acute distress HEENT: NC/AT. EOMI. Cardiovascular: RRR. S1 and S2 normal. No murmur appreciated Resp: Mild tachypnea, normal work of breathing. On 2 L nasal cannula. No cough Abdomen: Abdomen is soft, nondistended. Nontender Skin: Intact. No abrasions, laceration or rash noted MSK: Normal tone and bulk. Moving all extremities. No obvious deformity. Neuro: Awake and somewhat confused. Poor historian. No focal signs Impression: Pneumonia Suspected 2019 novel coronavirus infection Elevated troponin Elevated LFTs Lymphopenia Dementia Congestive Heart Failure Retirement Resident Plan Antibiotics/antivirals per ID O2 PRN Albuterol MDI PRN PPX - Lovenox ASA Monitor labs - hypokalemia - s/p supplementation Monitor cultures/viral studies Ultrasound of the abdomen pending. Isolation for suspected COVID-19 infection Laboratory Tests noted EKG Rate: normal Rhythm: NSR ST Segments: no acute changes Sinus rhythm, left axis deviation. Occasional PACs. T wave inversions, no ST segment changes Chest X-Ray: Consolidations in the left lower lobe may represent an early pneumonia. No effusion. Current CXR slight worsening of infiltrates . Subjective ROS Limited/Unobtainable: No Constitutional: Denies: fever Respiratory: Reports: shortness of breath Allergies: Coded Allergies: No Known Allergies (Unverified , 06/15/19) Objective Last 24 Hour Vital Signs Date Time Temp Pulse Resp B/P (MAP) Pulse Ox O2 Delivery O2 Flow Rate FiO2 06/29/19 21:00 Nasal Cannula 2.0 06/29/19 20:00 97.6 78 22 125/84 (98) 97 06/29/19 16:00 97.2 78 20 152/87 (108) 98 06/29/19 12:00 97.2 89 20 154/82 (106) 98 06/29/19 12:00 75 06/29/19 09:32 86 162/88 06/29/19 09:32 86 162/88 06/29/19 09:00 Nasal Cannula 2.0 06/29/19 08:00 97.0 86 20 162/88 (112) 99 06/29/19 08:00 84 06/29/19 06:24 171/98 06/29/19 04:00 86 06/29/19 04:00 96.9 82 20 171/98 (122) 98 Intake and Output 06/29/19 06/30/19 19:00 07:00 Intake Total 129 ml 129 ml Balance 129 ml 129 ml Tube Feeding 129 ml 129 ml # Voids 1 # Bowel Movements 1 General Appearance: no acute distress HEENT: mucous membranes moist Abdomen: soft, non tender, other - NG tube Extremities: no edema Neurologic/Psychiatric: disoriented Laboratory Tests 06/29/19 03:30: White Blood Count 9.1, Red Blood Count 5.36, Hemoglobin 16.1, Hematocrit 48.3, Mean Corpuscular Volume 90, Mean Corpuscular Hemoglobin 30.0, Mean Corpuscular Hemoglobin Concent 33.2, Red Cell Distribution Width 13.1, Platelet Count 409, Mean Platelet Volume 5.0L, Neutrophils (%) (Auto) 66.4, Lymphocytes (%) (Auto) 22.7, Monocytes (%) (Auto) 9.8, Eosinophils (%) (Auto) 0.2, Basophils (%) (Auto ) 0.9, Sodium Level 140, Potassium Level 4.4, Chloride Level 101, Carbon Dioxide Level 32, Anion Gap 7, Blood Urea Nitrogen 15, Creatinine 0.7, Estimat Glomerular Filtration Rate > 60, Glucose Level 98, Calcium Level 9.2, Total Bilirubin 0.5, Aspartate Amino Transf (AST/SGOT) 79H, Alanine Aminotransferase ( ALT/SGPT) 89H, Alkaline Phosphatase 208H, Total Protein 9.7H, Albumin 2.4L, Globulin 7.3, Albumin/Globulin Ratio 0.3L Current Medications Medications (Trade) Dose Ordered Sig/Kaylan Route PRN Reason Start Time Stop Time Status Last Admin Dose Admin Acetaminophen (Tylenol) 500 mg Q6H PRN ORAL For Pain 06/29/19 18:15 07/16/19 00:14 Acetaminophen (Tylenol) 650 mg Q6H PRN ORAL For Headache 06/29/19 18:00 07/16/19 17:59 Albuterol Sulfate (Proventil MDI) 2 puff Q6H PRN INH Shortness of Breath 06/29/19 18:00 09/14/19 17:59 Amlodipine Besylate (Norvasc) 5 mg DAILY NG 06/30/19 09:00 07/23/19 11:59 Aspirin (ASA) 81 mg DAILY ORAL 06/30/19 09:00 07/31/19 08:59 Docusate Sodium (Colace) 100 mg DAILY ORAL 06/30/19 09:00 07/16/19 08:59 Donepezil HCl (Aricept) 5 mg DAILY ORAL 06/30/19 09:00 07/16/19 08:59 Enoxaparin Sodium (Lovenox) 40 mg DAILY SUBQ 06/30/19 09:00 09/14/19 08:59 Hydralazine HCl (Apresoline) 25 mg Q4H PRN ORAL SBP > 160mmHg 06/29/19 17:30 09/20/19 13:29 Metoprolol Succinate (Toprol XL) 25 mg DAILY ORAL 06/30/19 09:00 09/17/19 19:14 Mirtazapine (Remeron) 15 mg BEDTIME ORAL 06/29/19 21:00 09/19/19 20:59 06/29/19 20:08 Ondansetron HCl (Zofran) 4 mg Q6H PRN IVP Nausea & Vomiting 06/29/19 18:00 07/16/19 17:59 Polyethylene Glycol (Miralax) 17 gm BEDTIME ORAL 06/29/19 21:00 07/17/19 20:59 06/29/19 20:08 Andrew Diaz MD Jun 30, 2019 00:02
[2019-06-30 04:00] VITALS: BP 128/72
[2019-06-30 07:09] LABS: ANION GAP 6 mmol/L (5-15); BLOOD UREA NITROGEN 23 mg/dL (7-18); CALCIUM 8.9 MG/DL (8.5-10.1); CARBON DIOXIDE 33 MMOL/L (21-32); CHLORIDE 102 MMOL/L (98-107); CREATININE 0.7 MG/DL (0.55-1.30); POTASSIUM 5.2 MMOL/L (3.5-5.1); SODIUM 141 MMOL/L (136-145)
[2019-06-30 07:14] LABS: BASOPHILS % (AUTO) 1.2 % (0.0-2.0); EOSINOPHILS % (AUTO) 0.5 % (0.0-3.0); HEMATOCRIT 47.1 % (42.0-52.0); HEMOGLOBIN 15.6 G/DL (14.2-18.0); LYMPHOCYTES % (AUTO) 21.7 % (20.0-45.0); MEAN CORPUSCULAR VOLUME 91 FL (80-99); MONOCYTES % (AUTO) 8.9 % (1.0-10.0); NEUTROPHILS % (AUTO) 67.7 % (45.0-75.0); PLATELET COUNT 414 K/UL (150-450); RED BLOOD COUNT 5.19 M/UL (4.70-6.10); RED CELL DISTRIBUTION WIDTH 12.9 % (11.6-14.8); WHITE BLOOD COUNT 8.1 K/UL (4.8-10.8)
--- NOTE | 2019-06-30 07:15 | NUR ---
NURSE NOTES: Received patient in bed. Awake, Alert x1. GT in place running feeding as ordered. GT flushed and patent. IV site in the Left forearm, intact. No signs of pain noted at this time. NC at 2 lpm. Bilateral soft wrist restraints in place, hands are warm and normal color for ethnicity. Bed in the lowest position, bed locked, bed alarm on, call light within reach.
--- NOTE | 2019-06-30 07:16 | NUR ---
HAND-OFF: Report given to Bharat FRENCH. Endorsed that patient has infiltrated IV, and to continue to monitor edema. Patient in stable condition. Addendum: 06/30/19 at 0724 by Alex Mcdaniels RN Wrong patient. Report given to Bharat FRENCH. Endorsed that patient is in bilateral soft wrist restraints. No order renewal needed at this time. Patient in stable condition.
[2019-06-30 08:00] VITALS: BP 119/75
--- NOTE | 2019-06-30 09:10 | General Progress Note ---
Assessment/Plan Status: progressing, unchanged Assessment/Plan: 1. History of dementia. 2. CHF. 3. Hypertension. 4. BPH. 5. Constipation. 6. elevated LFTS 7. AMI 8. gallstones improving LFTS hep C positive>>> HCV RNA positive>>>patient needs out patient fu for treatment fu cardiology repeat labs in am ngt in place ngTF on COVID isolation patient needs GT speech eval appreciated. patient has passed swallow eval but refuses to eat plan PEG when off of isolation Subjective ROS Limited/Unobtainable: No Allergies: Coded Allergies: No Known Allergies (Unverified , 06/15/19) Objective Last 24 Hour Vital Signs Date Time Temp Pulse Resp B/P (MAP) Pulse Ox O2 Delivery O2 Flow Rate FiO2 06/30/19 05:53 Nasal Cannula 2.0 06/30/19 04:00 96.5 78 20 128/72 (90) 97 06/30/19 00:00 96.8 80 20 119/82 (94) 98 06/29/19 21:00 Nasal Cannula 2.0 06/29/19 20:00 97.6 78 22 125/84 (98) 97 06/29/19 16:00 97.2 78 20 152/87 (108) 98 06/29/19 12:00 97.2 89 20 154/82 (106) 98 06/29/19 12:00 75 06/29/19 09:32 86 162/88 06/29/19 09:32 86 162/88 Intake and Output 06/29/19 06/30/19 19:00 07:00 Intake Total 129 ml 473 ml Balance 129 ml 473 ml Tube Feeding 129 ml 473 ml # Voids 1 # Bowel Movements 1 1 Laboratory Tests 06/30/19 04:00: White Blood Count 8.1, Red Blood Count 5.19, Hemoglobin 15.6, Hematocrit 47.1, Mean Corpuscular Volume 91, Mean Corpuscular Hemoglobin 30.1, Mean Corpuscular Hemoglobin Concent 33.2, Red Cell Distribution Width 12.9, Platelet Count 414, Mean Platelet Volume 5.6L, Neutrophils (%) (Auto) 67.7, Lymphocytes (%) (Auto) 21.7, Monocytes (%) (Auto) 8.9, Eosinophils (%) (Auto) 0.5, Basophils (%) (Auto ) 1.2 06/30/19 06:00: Sodium Level 141, Potassium Level 5.2H, Chloride Level 102, Carbon Dioxide Level 33H, Anion Gap 6, Blood Urea Nitrogen 23H, Creatinine 0.7, Estimat Glomerular Filtration Rate > 60, Glucose Level 142H, Calcium Level 8.9 Height (Feet): 5 Height (Inches): 2.00 Weight (Pounds): 132 General Appearance: no apparent distress EENT: normal ENT inspection Neck: supple Cardiovascular: normal rate Respiratory/Chest: decreased breath sounds Abdomen: normal bowel sounds, non tender, soft Extremities: non-tender Perry Quiroga MD Jun 30, 2019 09:10
[2019-06-30] MEDS: Metoprolol Succinate XL 25mg tab ORAL SCH (09:44)
[2019-06-30] MEDS: Docusate 100mg cap ORAL SCH (09:44)
[2019-06-30] MEDS: Donepezil 5mg Tab ORAL SCH (09:44)
[2019-06-30] MEDS: Aspirin Baby 81mg ORAL SCH (09:44)
[2019-06-30] MEDS: Enoxaparin 40mg Inj SUBQ SCH (09:45)
[2019-06-30 12:00] VITALS: BP 125/83
--- NOTE | 2019-06-30 12:32 | Nephrology Progress Note ---
Assessment/Plan Problem List: (1) Dehydration (2) Electrolyte imbalance (3) Elevated LFTs Assessment: Improving (4) HTN (hypertension) (5) Suspected 2019 novel coronavirus infection Assessment Electrolyte imbalance Dehydration and free water deficit Pneumonia suspected COVID-19 infection Elevated troponin Dementia Cholelithiasis and elevated liver enzymes BPH Hypertension Plan Positive for COVID-19 Normal saline 500 cc bolus Watch serum potassium and electrolytes Add Norvasc Hydralazine as needed for blood pressure over 160 systolic Monitor electrolyte Continue per consultants Urine analysis ordered as none is available since admission Per orders Subjective ROS Limited/Unobtainable: No Constitutional: Reports: malaise Objective Objective Last 24 Hour Vital Signs Date Time Temp Pulse Resp B/P (MAP) Pulse Ox O2 Delivery O2 Flow Rate FiO2 06/30/19 12:00 97.0 80 18 125/83 (97) 97 06/30/19 09:44 77 119/75 06/30/19 09:43 77 119/75 06/30/19 09:00 Nasal Cannula 2.0 06/30/19 08:00 96.6 77 19 119/75 (90) 92 06/30/19 05:53 Nasal Cannula 2.0 06/30/19 04:00 96.5 78 20 128/72 (90) 97 06/30/19 00:00 96.8 80 20 119/82 (94) 98 06/29/19 21:00 Nasal Cannula 2.0 06/29/19 20:00 97.6 78 22 125/84 (98) 97 06/29/19 16:00 97.2 78 20 152/87 (108) 98 Intake and Output 06/29/19 06/30/19 19:00 07:00 Intake Total 129 ml 473 ml Balance 129 ml 473 ml Tube Feeding 129 ml 473 ml # Voids 1 # Bowel Movements 1 1 Laboratory Tests 06/30/19 04:00: White Blood Count 8.1, Red Blood Count 5.19, Hemoglobin 15.6, Hematocrit 47.1, Mean Corpuscular Volume 91, Mean Corpuscular Hemoglobin 30.1, Mean Corpuscular Hemoglobin Concent 33.2, Red Cell Distribution Width 12.9, Platelet Count 414, Mean Platelet Volume 5.6L, Neutrophils (%) (Auto) 67.7, Lymphocytes (%) (Auto) 21.7, Monocytes (%) (Auto) 8.9, Eosinophils (%) (Auto) 0.5, Basophils (%) (Auto ) 1.2 06/30/19 06:00: Sodium Level 141, Potassium Level 5.2H, Chloride Level 102, Carbon Dioxide Level 33H, Anion Gap 6, Blood Urea Nitrogen 23H, Creatinine 0.7, Estimat Glomerular Filtration Rate > 60, Glucose Level 142H, Calcium Level 8.9 Height (Feet): 5 Height (Inches): 2.00 Weight (Pounds): 132 General Appearance: no apparent distress Cardiovascular: other - Rate 75-80 Respiratory/Chest: decreased breath sounds Abdomen: distended Drew Gonzalez MD Jun 30, 2019 12:32
--- NOTE | 2019-06-30 12:35 | Hematology/Onc Progress Note ---
Assessment/Plan Assessment/Plan Assessment and Plan: # Leukopenia -- multiple etiologies could be related to underlying liver disease , medication-induced, infection versus viral syndrome, in this case likely due to COVID19+, and Hep C+ --> peripheral smear has been ordered and does not show significant abnormalities --> Medications have been reviewed --> Continue to monitor for improvement, trend cbc --> Hep panel and HIV have been ordered--> cw hep C++ exposure --> US abd ordered to r/o cirrhosis and hepatosplenomegaly --> none noted --> reverse isolation if ANC is <2000 --> Give neupogen if ANC <1000 --> 06/22 off abx, repeat covid pending # Suspected 2019 novel coronavirus infection --> per id, on plaq, abx --> iso --> pulm eval recs noted --> 06/22 off abx per id # Pneumonia --> on abx --> oxygen prn --> per id # Elevated troponin ==> nstemi per cards --> diuresis prn # Elevated LFTs --> likely hep C related # Dysphagia with dec weight loss --> recommend gtube --> as per gi # Dvt ppx lovenox sq The timing of this note does not necessarily reflect the time of the patient was seen. Greatly appreciate consultation. Subjective Endocrine: Denies: no symptoms, excessive sweating, flushing, intolerance to cold, intolerance to heat, increased hunger, increased thirst, increased urine, unexplained weight gain, unexplained weight loss, other Allergies: Coded Allergies: No Known Allergies (Unverified , 06/15/19) All Systems: reviewed and negative except above Subjective 06/20 breathing is better, on iso for covid 19, wbc improved 06/21 labs better, no bleeding, no f/c, meds noted, hcv+ 06/22 restraints, off abx, repeat covid pending, nc 06/23 no bleeding, labs noted, no night sweats, cbc reviewed, on 2l nc 06/25 remains on glucerna, have ordered for labs, no bleeding 06/26 remains on 2lnc as for covid infection, for iso 06/27 is on 2lnc, no bleeding, labs reviewed, no night sweats 06/28 labs have improved, no bleeding or chills, imaging noted 06/29 plan for peg when off iso, no bleeding, dw gi Objective Objective Current Medications Medications (Trade) Dose Ordered Sig/Kaylan Route PRN Reason Start Time Stop Time Status Last Admin Dose Admin Acetaminophen (Tylenol) 500 mg Q6H PRN ORAL For Pain 06/29/19 18:15 07/16/19 00:14 Acetaminophen (Tylenol) 650 mg Q6H PRN ORAL For Headache 06/29/19 18:00 07/16/19 17:59 Albuterol Sulfate (Proventil MDI) 2 puff Q6H PRN INH Shortness of Breath 06/29/19 18:00 09/14/19 17:59 Amlodipine Besylate (Norvasc) 5 mg DAILY NG 06/30/19 09:00 07/23/19 11:59 06/30/19 09:43 Aspirin (ASA) 81 mg DAILY ORAL 06/30/19 09:00 07/31/19 08:59 06/30/19 09:44 Docusate Sodium (Colace) 100 mg DAILY ORAL 06/30/19 09:00 07/16/19 08:59 06/30/19 09:44 Donepezil HCl (Aricept) 5 mg DAILY ORAL 06/30/19 09:00 07/16/19 08:59 06/30/19 09:44 Enoxaparin Sodium (Lovenox) 40 mg DAILY SUBQ 06/30/19 09:00 09/14/19 08:59 06/30/19 09:45 Hydralazine HCl (Apresoline) 25 mg Q4H PRN ORAL SBP > 160mmHg 06/29/19 17:30 09/20/19 13:29 Metoprolol Succinate (Toprol XL) 25 mg DAILY ORAL 06/30/19 09:00 09/17/19 19:14 06/30/19 09:44 Mirtazapine (Remeron) 15 mg BEDTIME ORAL 06/29/19 21:00 09/19/19 20:59 06/29/19 20:08 Ondansetron HCl (Zofran) 4 mg Q6H PRN IVP Nausea & Vomiting 06/29/19 18:00 07/16/19 17:59 Polyethylene Glycol (Miralax) 17 gm BEDTIME ORAL 06/29/19 21:00 07/17/19 20:59 06/29/19 20:08 Last 24 Hour Vital Signs Date Time Temp Pulse Resp B/P (MAP) Pulse Ox O2 Delivery O2 Flow Rate FiO2 06/30/19 12:00 97.0 80 18 125/83 (97) 97 06/30/19 09:44 77 119/75 06/30/19 09:43 77 119/75 06/30/19 09:00 Nasal Cannula 2.0 06/30/19 08:00 96.6 77 19 119/75 (90) 92 06/30/19 05:53 Nasal Cannula 2.0 06/30/19 04:00 96.5 78 20 128/72 (90) 97 06/30/19 00:00 96.8 80 20 119/82 (94) 98 06/29/19 21:00 Nasal Cannula 2.0 06/29/19 20:00 97.6 78 22 125/84 (98) 97 06/29/19 16:00 97.2 78 20 152/87 (108) 98 06/29/19 12:00 97.2 89 20 154/82 (106) 98 06/29/19 12:00 75 06/29/19 09:32 86 162/88 06/29/19 09:32 86 162/88 06/29/19 09:00 Nasal Cannula 2.0 06/29/19 08:00 97.0 86 20 162/88 (112) 99 06/29/19 08:00 84 06/29/19 06:24 171/98 06/29/19 04:00 86 06/29/19 04:00 96.9 82 20 171/98 (122) 98 06/29/19 00:00 86 06/29/19 00:00 97.4 76 18 141/78 (99) 95 06/28/19 21:49 97 Nasal Cannula 2.0 28 06/28/19 21:00 Nasal Cannula 2.0 06/28/19 20:00 97.6 84 26 138/71 (93) 93 06/28/19 20:00 90 06/28/19 16:00 98.6 60 20 149/81 (103) 97 06/28/19 16:00 78 Intake and Output 06/29/19 06/30/19 19:00 07:00 Intake Total 129 ml 473 ml Balance 129 ml 473 ml Tube Feeding 129 ml 473 ml # Voids 1 # Bowel Movements 1 1 Labs Test 06/28/19 06:10 06/29/19 03:30 06/30/19 04:00 06/30/19 06:00 White Blood Count 7.8 K/UL (4.8-10.8) 9.1 K/UL (4.8-10.8) 8.1 K/UL (4.8-10.8) Red Blood Count 4.83 M/UL (4.70-6.10) 5.36 M/UL (4.70-6.10) 5.19 M/UL (4.70-6.10) Hemoglobin 14.4 G/DL (14.2-18.0) 16.1 G/DL (14.2-18.0) 15.6 G/DL (14.2-18.0) Hematocrit 43.9 % (42.0-52.0) 48.3 % (42.0-52.0) 47.1 % (42.0-52.0) Mean Corpuscular Volume 91 FL (80-99) 90 FL (80-99) 91 FL (80-99) Mean Corpuscular Hemoglobin 29.7 PG (27.0-31.0) 30.0 PG (27.0-31.0) 30.1 PG (27.0-31.0) Mean Corpuscular Hemoglobin Concent 32.7 G/DL (32.0-36.0) 33.2 G/DL (32.0-36.0) 33.2 G/DL (32.0-36.0) Red Cell Distribution Width 12.8 % (11.6-14.8) 13.1 % (11.6-14.8) 12.9 % (11.6-14.8) Platelet Count 385 K/UL (150-450) 409 K/UL (150-450) 414 K/UL (150-450) Mean Platelet Volume 5.5 FL (6.5-10.1) 5.0 FL (6.5-10.1) 5.6 FL (6.5-10.1) Neutrophils (%) (Auto) 63.6 % (45.0-75.0) 66.4 % (45.0-75.0) 67.7 % (45.0-75.0) Lymphocytes (%) (Auto) 28.5 % (20.0-45.0) 22.7 % (20.0-45.0) 21.7 % (20.0-45.0) Monocytes (%) (Auto) 6.5 % (1.0-10.0) 9.8 % (1.0-10.0) 8.9 % (1.0-10.0) Eosinophils (%) (Auto) 0.3 % (0.0-3.0) 0.2 % (0.0-3.0) 0.5 % (0.0-3.0) Basophils (%) (Auto) 1.1 % (0.0-2.0) 0.9 % (0.0-2.0) 1.2 % (0.0-2.0) Sodium Level 142 MMOL/L (136-145) 140 MMOL/L (136-145) 141 MMOL/L (136-145) Potassium Level 4.9 MMOL/L (3.5-5.1) 4.4 MMOL/L (3.5-5.1) 5.2 MMOL/L (3.5-5.1) Chloride Level 104 MMOL/L (98-107) 101 MMOL/L (98-107) 102 MMOL/L (98-107) Carbon Dioxide Level 33 MMOL/L (21-32) 32 MMOL/L (21-32) 33 MMOL/L (21-32) Anion Gap 5 mmol/L (5-15) 7 mmol/L (5-15) 6 mmol/L (5-15) Blood Urea Nitrogen 19 mg/dL (7-18) 15 mg/dL (7-18) 23 mg/dL (7-18) Creatinine 0.8 MG/DL (0.55-1.30) 0.7 MG/DL (0.55-1.30) 0.7 MG/DL (0.55-1.30) Estimat Glomerular Filtration Rate > 60 mL/min (>60) > 60 mL/min (>60) > 60 mL/min (>60) Glucose Level 134 MG/DL (74-106) 98 MG/DL (74-106) 142 MG/DL (74-106) Calcium Level 8.8 MG/DL (8.5-10.1) 9.2 MG/DL (8.5-10.1) 8.9 MG/DL (8.5-10.1) Total Bilirubin 0.5 MG/DL (0.2-1.0) Aspartate Amino Transf (AST/SGOT) 79 U/L (15-37) Alanine Aminotransferase (ALT/SGPT) 89 U/L (12-78) Alkaline Phosphatase 208 U/L (46-116) Total Protein 9.7 G/DL (6.4-8.2) Albumin 2.4 G/DL (3.4-5.0) Globulin 7.3 g/dL Albumin/Globulin Ratio 0.3 (1.0-2.7) Height (Feet): 5 Height (Inches): 2.00 Weight (Pounds): 132 Objective Physical Exam General: Awake and somewhat confused, no acute distress HEENT: NC/AT. EOMI. Cardiovascular: RRR. S1 and S2 normal. No murmur appreciated Resp: Mild tachypnea, normal work of breathing. On 2 L nasal cannula. Abdomen: Abdomen is soft, nondistended. Nontender Skin: Intact. No abrasions, laceration MSK: Normal tone and bulk. Moving all extremities Neuro: Awake and somewhat confused. Poor historian Geraldo Galvez MD Jun 30, 2019 12:35
--- NOTE | 2019-06-30 12:56 | Infectious Diseases Prog Note ---
Assessment/Plan Assessment/Plan IMPRESSION: COIVD19 Pneumonia, Positive on : 06/14, 06/20, 06/22, 06/25 Cholelithiasis and elevated transaminase level, acidosis, dementia with behavioral problem. Dysphagia Hepatitis C RECOMMENDATION: Will f/u COVID19 test Subjective ROS Limited/Unobtainable: Yes Constitutional: Denies: fever Neurologic: Reports: confusion, other - on restraint Allergies: Coded Allergies: No Known Allergies (Unverified , 06/15/19) Objective Vital Signs Last 24 Hour Vital Signs Date Time Temp Pulse Resp B/P (MAP) Pulse Ox O2 Delivery O2 Flow Rate FiO2 06/30/19 12:00 97.0 80 18 125/83 (97) 97 06/30/19 09:44 77 119/75 06/30/19 09:43 77 119/75 06/30/19 09:00 Nasal Cannula 2.0 06/30/19 08:00 96.6 77 19 119/75 (90) 92 06/30/19 05:53 Nasal Cannula 2.0 06/30/19 04:00 96.5 78 20 128/72 (90) 97 06/30/19 00:00 96.8 80 20 119/82 (94) 98 06/29/19 21:00 Nasal Cannula 2.0 06/29/19 20:00 97.6 78 22 125/84 (98) 97 06/29/19 16:00 97.2 78 20 152/87 (108) 98 Height (Feet): 5 Height (Inches): 2.00 Weight (Pounds): 132 General Appearance: no acute distress HEENT: mucous membranes moist Respiratory/Chest: lungs clear Cardiovascular: normal rate Abdomen: soft, non tender, other - NG tube feeding Laboratory Tests Test 06/30/19 04:00 06/30/19 06:00 White Blood Count 8.1 K/UL (4.8-10.8) Red Blood Count 5.19 M/UL (4.70-6.10) Hemoglobin 15.6 G/DL (14.2-18.0) Hematocrit 47.1 % (42.0-52.0) Mean Corpuscular Volume 91 FL (80-99) Mean Corpuscular Hemoglobin 30.1 PG (27.0-31.0) Mean Corpuscular Hemoglobin Concent 33.2 G/DL (32.0-36.0) Red Cell Distribution Width 12.9 % (11.6-14.8) Platelet Count 414 K/UL (150-450) Mean Platelet Volume 5.6 FL (6.5-10.1) L Neutrophils (%) (Auto) 67.7 % (45.0-75.0) Lymphocytes (%) (Auto) 21.7 % (20.0-45.0) Monocytes (%) (Auto) 8.9 % (1.0-10.0) Eosinophils (%) (Auto) 0.5 % (0.0-3.0) Basophils (%) (Auto) 1.2 % (0.0-2.0) Sodium Level 141 MMOL/L (136-145) Potassium Level 5.2 MMOL/L (3.5-5.1) H Chloride Level 102 MMOL/L (98-107) Carbon Dioxide Level 33 MMOL/L (21-32) H Anion Gap 6 mmol/L (5-15) Blood Urea Nitrogen 23 mg/dL (7-18) H Creatinine 0.7 MG/DL (0.55-1.30) Estimat Glomerular Filtration Rate > 60 mL/min (>60) Glucose Level 142 MG/DL (74-106) H Calcium Level 8.9 MG/DL (8.5-10.1) Current Medications Medications (Trade) Dose Ordered Sig/Kaylan Route PRN Reason Start Time Stop Time Status Last Admin Dose Admin Acetaminophen (Tylenol) 500 mg Q6H PRN ORAL For Pain 06/29/19 18:15 07/16/19 00:14 Acetaminophen (Tylenol) 650 mg Q6H PRN ORAL For Headache 06/29/19 18:00 07/16/19 17:59 Albuterol Sulfate (Proventil MDI) 2 puff Q6H PRN INH Shortness of Breath 06/29/19 18:00 09/14/19 17:59 Amlodipine Besylate (Norvasc) 5 mg DAILY NG 06/30/19 09:00 07/23/19 11:59 06/30/19 09:43 Aspirin (ASA) 81 mg DAILY ORAL 06/30/19 09:00 07/31/19 08:59 06/30/19 09:44 Docusate Sodium (Colace) 100 mg DAILY ORAL 06/30/19 09:00 07/16/19 08:59 06/30/19 09:44 Donepezil HCl (Aricept) 5 mg DAILY ORAL 06/30/19 09:00 07/16/19 08:59 06/30/19 09:44 Enoxaparin Sodium (Lovenox) 40 mg DAILY SUBQ 06/30/19 09:00 09/14/19 08:59 06/30/19 09:45 Hydralazine HCl (Apresoline) 25 mg Q4H PRN ORAL SBP > 160mmHg 06/29/19 17:30 09/20/19 13:29 Metoprolol Succinate (Toprol XL) 25 mg DAILY ORAL 06/30/19 09:00 09/17/19 19:14 06/30/19 09:44 Mirtazapine (Remeron) 15 mg BEDTIME ORAL 06/29/19 21:00 09/19/19 20:59 06/29/19 20:08 Ondansetron HCl (Zofran) 4 mg Q6H PRN IVP Nausea & Vomiting 06/29/19 18:00 07/16/19 17:59 Polyethylene Glycol (Miralax) 17 gm BEDTIME ORAL 06/29/19 21:00 07/17/19 20:59 06/29/19 20:08 Sodium Chloride 500 ml @ 999 mls/hr Q31M ONCE IV 06/30/19 12:45 06/30/19 13:15 Benigno Betancourt MD Jun 30, 2019 12:55
[2019-06-30 15:47] VITALS: BP 107/81
--- NOTE | 2019-06-30 19:04 | Cardiology Progress Note ---
Assessment/Plan Assessment/Plan 1. Dyspnea due to possibly combination of COVID-19 pneumonia in addition to with acute HFpEF, continue lasix and metoprolol. LVEF is at 65%. 2. Possible vsy-XM-cvdtrymxs myocardial infarction or elevated troponin I level could be secondary to myonecrosis due to CHF. 3. HCV infection. 4. Elevated LFTs. Subjective Subjective Transferred to the med surg unit. No cardiac events. Objective Last 24 Hour Vital Signs Date Time Temp Pulse Resp B/P (MAP) Pulse Ox O2 Delivery O2 Flow Rate FiO2 06/30/19 15:47 97.3 74 19 107/81 (90) 98 06/30/19 12:00 97.0 80 18 125/83 (97) 97 06/30/19 09:44 77 119/75 06/30/19 09:43 77 119/75 06/30/19 09:00 Nasal Cannula 2.0 06/30/19 08:00 96.6 77 19 119/75 (90) 92 06/30/19 05:53 Nasal Cannula 2.0 06/30/19 04:00 96.5 78 20 128/72 (90) 97 06/30/19 00:00 96.8 80 20 119/82 (94) 98 06/29/19 21:00 Nasal Cannula 2.0 06/29/19 20:00 97.6 78 22 125/84 (98) 97 Intake and Output 06/29/19 06/30/19 19:00 07:00 Intake Total 129 ml 516 ml Balance 129 ml 516 ml Tube Feeding 129 ml 516 ml # Voids 1 # Bowel Movements 1 1 2D Echo: LVEF 65%, grade I LVDD Laboratory Tests Test 06/30/19 04:00 06/30/19 06:00 White Blood Count 8.1 K/UL (4.8-10.8) Red Blood Count 5.19 M/UL (4.70-6.10) Hemoglobin 15.6 G/DL (14.2-18.0) Hematocrit 47.1 % (42.0-52.0) Mean Corpuscular Volume 91 FL (80-99) Mean Corpuscular Hemoglobin 30.1 PG (27.0-31.0) Mean Corpuscular Hemoglobin Concent 33.2 G/DL (32.0-36.0) Red Cell Distribution Width 12.9 % (11.6-14.8) Platelet Count 414 K/UL (150-450) Mean Platelet Volume 5.6 FL (6.5-10.1) L Neutrophils (%) (Auto) 67.7 % (45.0-75.0) Lymphocytes (%) (Auto) 21.7 % (20.0-45.0) Monocytes (%) (Auto) 8.9 % (1.0-10.0) Eosinophils (%) (Auto) 0.5 % (0.0-3.0) Basophils (%) (Auto) 1.2 % (0.0-2.0) Sodium Level 141 MMOL/L (136-145) Potassium Level 5.2 MMOL/L (3.5-5.1) H Chloride Level 102 MMOL/L (98-107) Carbon Dioxide Level 33 MMOL/L (21-32) H Anion Gap 6 mmol/L (5-15) Blood Urea Nitrogen 23 mg/dL (7-18) H Creatinine 0.7 MG/DL (0.55-1.30) Estimat Glomerular Filtration Rate > 60 mL/min (>60) Glucose Level 142 MG/DL (74-106) H Calcium Level 8.9 MG/DL (8.5-10.1) Objective HEENT: Atraumatic and normocephalic. Anicteric. Pupils are equal, round, and reactive to light and accommodation. Extraocular muscles intact. NECK: JVP is less than 5 cm. No carotid bruit. Carotid upstroke is 2+ bilaterally. CARDIOVASCULAR: Normal S1 and S2. Regular rate and rhythm. No murmurs, gallops, or rubs. PMI is at fourth intercostal space at midclavicular line. LUNGS: Diminished breath sounds in both bases with associated crackles. ABDOMEN: Soft, nontender, and nondistended. No hepatosplenomegaly. Positive bowel sounds. EXTREMITIES: No evidence of edema, clubbing, or cyanosis. Rolf Moreno MD Jun 30, 2019 19:03
--- NOTE | 2019-06-30 19:30 | NUR ---
HAND-OFF: Report given to Cece FRENCH.
--- NOTE | 2019-06-30 19:35 | NUR ---
NURSE NOTES: received patient on bed, asleep. with cannula @ 2lpm. no sob. with bilateral soft wrist restraints noted. no injury noted. with lfa iv line saline lock. with ngt running glucerna 1.5 at 43ml/hr. kept head of bed elevated. reiterated to ask for help and use the call light. bed locked and in lowest position.call light and light button within easy reach. will continue plan of care
[2019-06-30 20:00] VITALS: BP 126/79
--- NOTE | 2019-06-30 20:28 | General Progress Note ---
Assessment/Plan Problem List: (1) Elevated troponin ICD Codes: R79.89 - Other specified abnormal findings of blood chemistry SNOMED: 797502761, 315980157, 164129235 (2) Elevated LFTs ICD Codes: R79.89 - Other specified abnormal findings of blood chemistry SNOMED: 529618744, 932470198, 827524562 (3) Pneumonia ICD Codes: J18.9 - Pneumonia, unspecified organism SNOMED: 902495039, 092264052, 676197010 (4) Suspected 2019 novel coronavirus infection ICD Codes: R68.89 - Other general symptoms and signs SNOMED: 686507625 Status: progressing, unchanged Assessment/Plan: covid positive pna resp insuff poor appetite pna sepsis labs normal borderline hyperkalemia feeding route per gi di reviewed chart and labs Subjective ROS Limited/Unobtainable: Yes Allergies: Coded Allergies: No Known Allergies (Unverified , 06/15/19) Objective Last 24 Hour Vital Signs Date Time Temp Pulse Resp B/P (MAP) Pulse Ox O2 Delivery O2 Flow Rate FiO2 06/30/19 15:47 97.3 74 19 107/81 (90) 98 06/30/19 12:00 97.0 80 18 125/83 (97) 97 06/30/19 09:44 77 119/75 06/30/19 09:43 77 119/75 06/30/19 09:00 Nasal Cannula 2.0 06/30/19 08:00 96.6 77 19 119/75 (90) 92 06/30/19 05:53 Nasal Cannula 2.0 06/30/19 04:00 96.5 78 20 128/72 (90) 97 06/30/19 00:00 96.8 80 20 119/82 (94) 98 06/29/19 21:00 Nasal Cannula 2.0 Intake and Output 06/29/19 06/30/19 19:00 07:00 Intake Total 129 ml 516 ml Balance 129 ml 516 ml Tube Feeding 129 ml 516 ml # Voids 1 # Bowel Movements 1 1 Laboratory Tests 06/30/19 04:00: White Blood Count 8.1, Red Blood Count 5.19, Hemoglobin 15.6, Hematocrit 47.1, Mean Corpuscular Volume 91, Mean Corpuscular Hemoglobin 30.1, Mean Corpuscular Hemoglobin Concent 33.2, Red Cell Distribution Width 12.9, Platelet Count 414, Mean Platelet Volume 5.6L, Neutrophils (%) (Auto) 67.7, Lymphocytes (%) (Auto) 21.7, Monocytes (%) (Auto) 8.9, Eosinophils (%) (Auto) 0.5, Basophils (%) (Auto ) 1.2 06/30/19 06:00: Sodium Level 141, Potassium Level 5.2H, Chloride Level 102, Carbon Dioxide Level 33H, Anion Gap 6, Blood Urea Nitrogen 23H, Creatinine 0.7, Estimat Glomerular Filtration Rate > 60, Glucose Level 142H, Calcium Level 8.9 Height (Feet): 5 Height (Inches): 2.00 Weight (Pounds): 132 Gorge Malhotra MD Jun 30, 2019 20:28
[2019-06-30] MEDS: Miralax 17gm pkt ORAL SCH (20:40)
--- NOTE | 2019-06-30 23:56 | Pulmonology Progress Note ---
Assessment/Plan Assessment/Plan Pulmonary Progress Note HPI: Patient is a 88-year-old male history of Dementia, Congestive Heart Failure , admitted [facility] with Pneumonia, COVID 19 positive, noted to have fever and shortness of breath, chest congestion and tightness for 2 days. Noted to be confused in the ED. Has been febrile with low-grade temperatures for the past 2 days. No vomiting or diarrhea or abdominal pain. Stable O2 requirements - 2L NC, stable Pulmonary Status clinically Awaiting G tube Seen earlier PMH: Dementia, Congestive Heart Failure Social Hx: Retirement Resident FHx: NC Allergies: No Known Allergies All Other Systems: limited - AMS Physical Exam Vital signs noted General: Awake and somewhat confused, no acute distress HEENT: NC/AT. EOMI. Cardiovascular: RRR. S1 and S2 normal. No murmur appreciated Resp: Mild tachypnea, normal work of breathing. On 2 L nasal cannula. No cough Abdomen: Abdomen is soft, nondistended. Nontender Skin: Intact. No abrasions, laceration or rash noted MSK: Normal tone and bulk. Moving all extremities. No obvious deformity. Neuro: Awake and somewhat confused. Poor historian. No focal signs Impression: Pneumonia Suspected 2019 novel coronavirus infection Elevated troponin Elevated LFTs Lymphopenia Dementia Congestive Heart Failure Retirement Resident Plan Antibiotics/antivirals per ID O2 PRN Albuterol MDI PRN PPX - Lovenox ASA Monitor labs - hypokalemia - s/p supplementation Monitor cultures/viral studies Ultrasound of the abdomen pending. Isolation for suspected COVID-19 infection Laboratory Tests noted EKG Rate: normal Rhythm: NSR ST Segments: no acute changes Sinus rhythm, left axis deviation. Occasional PACs. T wave inversions, no ST segment changes Chest X-Ray: Consolidations in the left lower lobe may represent an early pneumonia. No effusion. Current CXR slight worsening of infiltrates . Subjective ROS Limited/Unobtainable: No Constitutional: Denies: fever Respiratory: Reports: shortness of breath Allergies: Coded Allergies: No Known Allergies (Unverified , 06/15/19) All Systems: reviewed and negative except above Objective Last 24 Hour Vital Signs Date Time Temp Pulse Resp B/P (MAP) Pulse Ox O2 Delivery O2 Flow Rate FiO2 06/30/19 21:00 Nasal Cannula 2.0 06/30/19 20:00 98.3 84 20 126/79 (95) 96 06/30/19 15:47 97.3 74 19 107/81 (90) 98 06/30/19 12:00 97.0 80 18 125/83 (97) 97 06/30/19 09:44 77 119/75 06/30/19 09:43 77 119/75 06/30/19 09:00 Nasal Cannula 2.0 06/30/19 08:00 96.6 77 19 119/75 (90) 92 06/30/19 05:53 Nasal Cannula 2.0 06/30/19 04:00 96.5 78 20 128/72 (90) 97 06/30/19 00:00 96.8 80 20 119/82 (94) 98 Intake and Output 06/29/19 06/30/19 19:00 07:00 Intake Total 129 ml 516 ml Balance 129 ml 516 ml Tube Feeding 129 ml 516 ml # Voids 1 # Bowel Movements 1 1 General Appearance: no acute distress HEENT: mucous membranes moist Abdomen: soft, non tender, other - NG tube feeding Extremities: no edema Neurologic/Psychiatric: disoriented Laboratory Tests 06/30/19 04:00: White Blood Count 8.1, Red Blood Count 5.19, Hemoglobin 15.6, Hematocrit 47.1, Mean Corpuscular Volume 91, Mean Corpuscular Hemoglobin 30.1, Mean Corpuscular Hemoglobin Concent 33.2, Red Cell Distribution Width 12.9, Platelet Count 414, Mean Platelet Volume 5.6L, Neutrophils (%) (Auto) 67.7, Lymphocytes (%) (Auto) 21.7, Monocytes (%) (Auto) 8.9, Eosinophils (%) (Auto) 0.5, Basophils (%) (Auto ) 1.2 06/30/19 06:00: Sodium Level 141, Potassium Level 5.2H, Chloride Level 102, Carbon Dioxide Level 33H, Anion Gap 6, Blood Urea Nitrogen 23H, Creatinine 0.7, Estimat Glomerular Filtration Rate > 60, Glucose Level 142H, Calcium Level 8.9 Current Medications Medications (Trade) Dose Ordered Sig/Kaylan Route PRN Reason Start Time Stop Time Status Last Admin Dose Admin Acetaminophen (Tylenol) 500 mg Q6H PRN ORAL For Pain 06/29/19 18:15 07/16/19 00:14 Acetaminophen (Tylenol) 650 mg Q6H PRN ORAL For Headache 06/29/19 18:00 07/16/19 17:59 Albuterol Sulfate (Proventil MDI) 2 puff Q6H PRN INH Shortness of Breath 06/29/19 18:00 09/14/19 17:59 Amlodipine Besylate (Norvasc) 5 mg DAILY NG 06/30/19 09:00 07/23/19 11:59 06/30/19 09:43 Aspirin (ASA) 81 mg DAILY ORAL 06/30/19 09:00 07/31/19 08:59 06/30/19 09:44 Docusate Sodium (Colace) 100 mg DAILY ORAL 06/30/19 09:00 07/16/19 08:59 06/30/19 09:44 Donepezil HCl (Aricept) 5 mg DAILY ORAL 06/30/19 09:00 07/16/19 08:59 06/30/19 09:44 Enoxaparin Sodium (Lovenox) 40 mg DAILY SUBQ 06/30/19 09:00 09/14/19 08:59 06/30/19 09:45 Hydralazine HCl (Apresoline) 25 mg Q4H PRN ORAL SBP > 160mmHg 06/29/19 17:30 09/20/19 13:29 Metoprolol Succinate (Toprol XL) 25 mg DAILY ORAL 06/30/19 09:00 09/17/19 19:14 06/30/19 09:44 Mirtazapine (Remeron) 15 mg BEDTIME ORAL 06/29/19 21:00 09/19/19 20:59 06/30/19 20:40 Ondansetron HCl (Zofran) 4 mg Q6H PRN IVP Nausea & Vomiting 06/29/19 18:00 07/16/19 17:59 Polyethylene Glycol (Miralax) 17 gm BEDTIME ORAL 06/29/19 21:00 07/17/19 20:59 06/30/19 20:40 Andrew Diaz MD Jun 30, 2019 23:56
[2019-07-01] VITALS: BP 120/74
--- NOTE | 2019-07-01 00:45 | Progress Note ---
DATE: 06/30/2019 SUBJECTIVE: The patient is in bed, low appetite, episodes of agitation, confused, unable to provide any history. MENTAL STATUS EXAMINATION: Alert and oriented x1. Has G-tube. Mood is agitated. Affect is flat. Thought process is concrete. Thought content, no suicidal or homicidal ideation. Cognition is impaired. ASSESSMENT: Bilateral self-restraints. PLAN: Remeron 50 mg p.o. at bedtime. Karlo Santiago M.D. DR: Kb JOB#: [id number] CC:
[2019-07-01 04:00] VITALS: BP 130/70
--- NOTE | 2019-07-01 06:57 | Hematology/Onc Progress Note ---
Assessment/Plan Assessment/Plan Assessment and Plan: # Leukopenia -- multiple etiologies could be related to underlying liver disease , medication-induced, infection versus viral syndrome, in this case likely due to COVID19+, and Hep C+ --> peripheral smear has been ordered and does not show significant abnormalities --> Medications have been reviewed --> Continue to monitor for improvement, trend cbc --> Hep panel and HIV have been ordered--> cw hep C++ exposure --> US abd ordered to r/o cirrhosis and hepatosplenomegaly --> none noted --> reverse isolation if ANC is <2000 --> Give neupogen if ANC <1000 --> 06/22 off abx, repeat covid pending -> HAS IMPROVED SINCE ADMISSION # Suspected 2019 novel coronavirus infection --> per id, on plaq, abx --> iso --> pulm eval recs noted --> 06/22 off abx per id # Pneumonia --> on abx --> oxygen prn --> per id # Elevated troponin ==> nstemi per cards --> diuresis prn # Elevated LFTs --> likely hep C related # Dysphagia with dec weight loss --> recommend gtube --> as per gi # Dvt ppx lovenox sq The timing of this note does not necessarily reflect the time of the patient was seen. Greatly appreciate consultation. Subjective Cardiovascular: Denies: no symptoms, chest pain, edema, irregular heart rate, lightheadedness, palpitations, syncope, other Respiratory: Denies: no symptoms, cough, shortness of breath, SOB with excertion, SOB at rest, sputum, wheezing, other Genitourinary: Denies: no symptoms, burning, discharge, frequency, flank pain, hematuria, incontinence, pain, urgency, other Neurologic/Psychiatric: Denies: no symptoms, anxiety, depressed, emotional problems, headache, numbness, paresthesia, pre-existing deficit, seizure, tingling, tremors, weakness, other Endocrine: Denies: no symptoms, excessive sweating, flushing, intolerance to cold, intolerance to heat, increased hunger, increased thirst, increased urine, unexplained weight gain, unexplained weight loss, other Allergies: Coded Allergies: No Known Allergies (Unverified , 06/15/19) Subjective 06/20 breathing is better, on iso for covid 19, wbc improved 06/21 labs better, no bleeding, no f/c, meds noted, hcv+ 06/22 restraints, off abx, repeat covid pending, nc 06/23 no bleeding, labs noted, no night sweats, cbc reviewed, on 2l nc 06/25 remains on glucerna, have ordered for labs, no bleeding 06/26 remains on 2lnc as for covid infection, for iso 06/27 is on 2lnc, no bleeding, labs reviewed, no night sweats 06/28 labs have improved, no bleeding or chills, imaging noted 06/29 plan for peg when off iso, no bleeding, dw gi 06/30 with nc on board, ngt is running, no bleeding noted Objective Objective Current Medications Medications (Trade) Dose Ordered Sig/Kaylan Route PRN Reason Start Time Stop Time Status Last Admin Dose Admin Acetaminophen (Tylenol) 500 mg Q6H PRN ORAL For Pain 06/29/19 18:15 07/16/19 00:14 Acetaminophen (Tylenol) 650 mg Q6H PRN ORAL For Headache 06/29/19 18:00 07/16/19 17:59 Albuterol Sulfate (Proventil MDI) 2 puff Q6H PRN INH Shortness of Breath 06/29/19 18:00 09/14/19 17:59 Amlodipine Besylate (Norvasc) 5 mg DAILY NG 06/30/19 09:00 07/23/19 11:59 06/30/19 09:43 Aspirin (ASA) 81 mg DAILY ORAL 06/30/19 09:00 07/31/19 08:59 06/30/19 09:44 Docusate Sodium (Colace) 100 mg DAILY ORAL 06/30/19 09:00 07/16/19 08:59 06/30/19 09:44 Donepezil HCl (Aricept) 5 mg DAILY ORAL 06/30/19 09:00 07/16/19 08:59 06/30/19 09:44 Enoxaparin Sodium (Lovenox) 40 mg DAILY SUBQ 06/30/19 09:00 09/14/19 08:59 06/30/19 09:45 Hydralazine HCl (Apresoline) 25 mg Q4H PRN ORAL SBP > 160mmHg 06/29/19 17:30 09/20/19 13:29 Metoprolol Succinate (Toprol XL) 25 mg DAILY ORAL 06/30/19 09:00 09/17/19 19:14 06/30/19 09:44 Mirtazapine (Remeron) 15 mg BEDTIME ORAL 06/29/19 21:00 09/19/19 20:59 06/30/19 20:40 Ondansetron HCl (Zofran) 4 mg Q6H PRN IVP Nausea & Vomiting 06/29/19 18:00 07/16/19 17:59 Polyethylene Glycol (Miralax) 17 gm BEDTIME ORAL 06/29/19 21:00 07/17/19 20:59 06/30/19 20:40 Last 24 Hour Vital Signs Date Time Temp Pulse Resp B/P (MAP) Pulse Ox O2 Delivery O2 Flow Rate FiO2 07/01/19 04:00 98.2 78 20 130/70 (90) 96 07/01/19 00:00 97.8 80 20 120/74 (89) 95 06/30/19 21:00 Nasal Cannula 2.0 06/30/19 20:00 98.3 84 20 126/79 (95) 96 06/30/19 15:47 97.3 74 19 107/81 (90) 98 06/30/19 12:00 97.0 80 18 125/83 (97) 97 06/30/19 09:44 77 119/75 06/30/19 09:43 77 119/75 06/30/19 09:00 Nasal Cannula 2.0 06/30/19 08:00 96.6 77 19 119/75 (90) 92 06/30/19 05:53 Nasal Cannula 2.0 06/30/19 04:00 96.5 78 20 128/72 (90) 97 06/30/19 00:00 96.8 80 20 119/82 (94) 98 06/29/19 21:00 Nasal Cannula 2.0 06/29/19 20:00 97.6 78 22 125/84 (98) 97 06/29/19 16:00 97.2 78 20 152/87 (108) 98 06/29/19 12:00 97.2 89 20 154/82 (106) 98 06/29/19 12:00 75 06/29/19 09:32 86 162/88 06/29/19 09:32 86 162/88 06/29/19 09:00 Nasal Cannula 2.0 06/29/19 08:00 97.0 86 20 162/88 (112) 99 06/29/19 08:00 84 Intake and Output 06/30/19 07/01/19 19:00 07:00 Intake Total 773 ml 401 ml Balance 773 ml 401 ml Free Water 300 ml 100 ml Tube Feeding 473 ml 301 ml # Voids 3 # Bowel Movements 1 Labs Test 06/29/19 03:30 06/30/19 04:00 06/30/19 06:00 07/01/19 05:50 White Blood Count 9.1 K/UL (4.8-10.8) 8.1 K/UL (4.8-10.8) Red Blood Count 5.36 M/UL (4.70-6.10) 5.19 M/UL (4.70-6.10) Hemoglobin 16.1 G/DL (14.2-18.0) 15.6 G/DL (14.2-18.0) Hematocrit 48.3 % (42.0-52.0) 47.1 % (42.0-52.0) Mean Corpuscular Volume 90 FL (80-99) 91 FL (80-99) Mean Corpuscular Hemoglobin 30.0 PG (27.0-31.0) 30.1 PG (27.0-31.0) Mean Corpuscular Hemoglobin Concent 33.2 G/DL (32.0-36.0) 33.2 G/DL (32.0-36.0) Red Cell Distribution Width 13.1 % (11.6-14.8) 12.9 % (11.6-14.8) Platelet Count 409 K/UL (150-450) 414 K/UL (150-450) Mean Platelet Volume 5.0 FL (6.5-10.1) 5.6 FL (6.5-10.1) Neutrophils (%) (Auto) 66.4 % (45.0-75.0) 67.7 % (45.0-75.0) Lymphocytes (%) (Auto) 22.7 % (20.0-45.0) 21.7 % (20.0-45.0) Monocytes (%) (Auto) 9.8 % (1.0-10.0) 8.9 % (1.0-10.0) Eosinophils (%) (Auto) 0.2 % (0.0-3.0) 0.5 % (0.0-3.0) Basophils (%) (Auto) 0.9 % (0.0-2.0) 1.2 % (0.0-2.0) Sodium Level 140 MMOL/L (136-145) 141 MMOL/L (136-145) Potassium Level 4.4 MMOL/L (3.5-5.1) 5.2 MMOL/L (3.5-5.1) Chloride Level 101 MMOL/L (98-107) 102 MMOL/L (98-107) Carbon Dioxide Level 32 MMOL/L (21-32) 33 MMOL/L (21-32) Anion Gap 7 mmol/L (5-15) 6 mmol/L (5-15) Blood Urea Nitrogen 15 mg/dL (7-18) 23 mg/dL (7-18) Creatinine 0.7 MG/DL (0.55-1.30) 0.7 MG/DL (0.55-1.30) Estimat Glomerular Filtration Rate > 60 mL/min (>60) > 60 mL/min (>60) Glucose Level 98 MG/DL (74-106) 142 MG/DL (74-106) Calcium Level 9.2 MG/DL (8.5-10.1) 8.9 MG/DL (8.5-10.1) Total Bilirubin 0.5 MG/DL (0.2-1.0) Aspartate Amino Transf (AST/SGOT) 79 U/L (15-37) Alanine Aminotransferase (ALT/SGPT) 89 U/L (12-78) Alkaline Phosphatase 208 U/L (46-116) Total Protein 9.7 G/DL (6.4-8.2) Albumin 2.4 G/DL (3.4-5.0) Globulin 7.3 g/dL Albumin/Globulin Ratio 0.3 (1.0-2.7) Height (Feet): 5 Height (Inches): 2.00 Weight (Pounds): 132 Objective Physical Exam General: Awake and somewhat confused, no acute distress HEENT: NC/AT. EOMI. ++ngt Cardiovascular: RRR. S1 and S2 normal. No murmur appreciated Resp: Mild tachypnea, normal work of breathing. On 2 L nasal cannula+ Abdomen: Abdomen is soft, nondistended. Nontender Skin: Intact. No abrasions, laceration MSK: Normal tone and bulk. Moving all extremities Neuro: Awake and somewhat confused. Poor historian Geraldo Galvez MD July 01, 2019 06:57
[2019-07-01 07:08] LABS: BASOPHILS % (AUTO) 1.6 % (0.0-2.0); HEMATOCRIT 44.8 % (42.0-52.0); HEMOGLOBIN 14.9 G/DL (14.2-18.0); LYMPHOCYTES % (AUTO) 42.5 % (20.0-45.0); MEAN CORPUSCULAR VOLUME 91 FL (80-99); MONOCYTES % (AUTO) 9.2 % (1.0-10.0); NEUTROPHILS % (AUTO) 45.7 % (45.0-75.0); PLATELET COUNT 401 K/UL (150-450); RED BLOOD COUNT 4.93 M/UL (4.70-6.10); RED CELL DISTRIBUTION WIDTH 13.1 % (11.6-14.8); WHITE BLOOD COUNT 9.3 K/UL (4.8-10.8)
--- NOTE | 2019-07-01 07:20 | NUR ---
NURSE NOTES: Received patient in bed. Awake, nonverbal. On 2 lpm via NC. NGt in left nostril patent and flushed, feeding running as ordered. Condom catheter in place. IV in the Left forearm, site is intact. Bilateral soft wrist restraints, hands are warm and normal color for ethnicity. Bed at the lowest position, bed locked, bed alarm on, call light within reach.
--- NOTE | 2019-07-01 07:25 | NUR ---
HAND-OFF: Report given to walter holden.
[2019-07-01 07:44] LABS: ALBUMIN 2.2 G/DL (3.4-5.0); ALKALINE PHOSPHATASE 222 U/L (46-116); ANION GAP 7 mmol/L (5-15); ASPARTATE AMINO TRANSFERASE 112 U/L (15-37); BILIRUBIN,TOTAL 0.3 MG/DL (0.2-1.0); BLOOD UREA NITROGEN 24 mg/dL (7-18); CALCIUM 9.4 MG/DL (8.5-10.1); CARBON DIOXIDE 31 MMOL/L (21-32); CHLORIDE 103 MMOL/L (98-107); POTASSIUM 5.1 MMOL/L (3.5-5.1); SODIUM 141 MMOL/L (136-145)
[2019-07-01 08:00] VITALS: BP 118/81
[2019-07-01 08:08] LABS: ALANINE AMINOTRANSFERASE 109 U/L (12-78); CREATININE 0.8 MG/DL (0.55-1.30)
--- NOTE | 2019-07-01 08:43 | General Progress Note ---
Assessment/Plan Status: progressing, unchanged Assessment/Plan: 1. History of dementia. 2. CHF. 3. Hypertension. 4. BPH. 5. Constipation. 6. elevated LFTS 7. AMI 8. gallstones improving LFTS hep C positive>>> HCV RNA positive>>>patient needs out patient fu for treatment fu cardiology repeat labs in am ngt in place ngTF on COVID isolation patient needs GT speech eval appreciated. patient has passed swallow eval but refuses to eat plan PEG when off of isolation Subjective ROS Limited/Unobtainable: No Allergies: Coded Allergies: No Known Allergies (Unverified , 06/15/19) Objective Last 24 Hour Vital Signs Date Time Temp Pulse Resp B/P (MAP) Pulse Ox O2 Delivery O2 Flow Rate FiO2 07/01/19 04:00 98.2 78 20 130/70 (90) 96 07/01/19 00:00 97.8 80 20 120/74 (89) 95 06/30/19 21:00 Nasal Cannula 2.0 06/30/19 20:00 98.3 84 20 126/79 (95) 96 06/30/19 15:47 97.3 74 19 107/81 (90) 98 06/30/19 12:00 97.0 80 18 125/83 (97) 97 06/30/19 09:44 77 119/75 06/30/19 09:43 77 119/75 06/30/19 09:00 Nasal Cannula 2.0 Intake and Output 06/30/19 07/01/19 19:00 07:00 Intake Total 773 ml 401 ml Balance 773 ml 401 ml Free Water 300 ml 100 ml Tube Feeding 473 ml 301 ml # Voids 3 # Bowel Movements 1 Laboratory Tests 07/01/19 05:50: White Blood Count 9.3, Red Blood Count 4.93, Hemoglobin 14.9, Hematocrit 44.8, Mean Corpuscular Volume 91, Mean Corpuscular Hemoglobin 30.3, Mean Corpuscular Hemoglobin Concent 33.3, Red Cell Distribution Width 13.1, Platelet Count 401, Mean Platelet Volume 5.2L, Neutrophils (%) (Auto) 45.7, Lymphocytes (%) (Auto) 42.5, Monocytes (%) (Auto) 9.2, Eosinophils (%) (Auto) 1.0, Basophils (%) (Auto ) 1.6, Sodium Level 141, Potassium Level 5.1, Chloride Level 103, Carbon Dioxide Level 31, Anion Gap 7, Blood Urea Nitrogen 24H, Creatinine 0.8, Estimat Glomerular Filtration Rate > 60, Glucose Level 126H, Calcium Level 9.4, Phosphorus Level [Pending], Magnesium Level 2.5H, Total Bilirubin 0.3, Aspartate Amino Transf (AST/SGOT) 112H, Alanine Aminotransferase (ALT/SGPT) 109H , Alkaline Phosphatase 222H, C-Reactive Protein, Quantitative 5.8H, Pro-B-Type Natriuretic Peptide 263H, Total Protein 8.8H, Albumin 2.2L, Globulin 6.6 Height (Feet): 5 Height (Inches): 2.00 Weight (Pounds): 132 General Appearance: no apparent distress EENT: normal ENT inspection Neck: supple Cardiovascular: normal rate Respiratory/Chest: decreased breath sounds Abdomen: normal bowel sounds, non tender, soft Extremities: non-tender Perry Quiroga MD July 01, 2019 08:43
[2019-07-01] MEDS: Docusate 100mg cap ORAL SCH (09:11)
[2019-07-01] MEDS: Aspirin Baby 81mg ORAL SCH (09:11)
[2019-07-01] MEDS: Donepezil 5mg Tab ORAL SCH (09:11)
[2019-07-01] MEDS: Metoprolol Succinate XL 25mg tab ORAL SCH (09:12)
[2019-07-01] MEDS: Enoxaparin 40mg Inj SUBQ SCH (09:13)
--- NOTE | 2019-07-01 10:36 | NUR ---
RD ASSESSMENT & RECOMMENDATIONS SEE CARE ACTIVITY FOR COMPLETE ASSESSMENT DAILY ESTIMATED NEEDS: Needs based on Cardiac, pulmonary 61.2kg 25-30 kcals/kg 0543-0919 total kcals 1-1.5 g protein/kg 61-92 g total protein 20-25 mL/kg 2965-4723 total fluid mLs NUTRITION DIAGNOSIS: Swallowing and chewing difficulty r/t dysphagia as evidenced by pt on liquify puree texture diet w/ NTL, variable PO intake and 1:1 feeds, now on NGT feeds + oral grat. CURRENT DIET:NPO CURRENT TF:Glucerna 1.5@43ml/hr + Oral grat ENTERAL NUTRITION RECOMMENDATIONS: Glucerna 1.5 @43ml/hr x24 hrs to provide 1032ml, 1548 kcal, 85g pro, 783ml free H2O - Maintain current TF - Flush per , HOB over 30 degrees. If K labs continue to trend up rec TF change to Nepro w/ goal of 37ml/hr for 888ml, 1598 kcal, 72g pro, 646ml free H2O and 941mg potassium per day. ADDITIONAL RECOMMENDATIONS: 1) Obtain a calibrated bed scale wt and UPDATED EMR, Updated wt of 59.165kg is more c/w initial wt 2) Monitor lytes (K now 5.1), need for renal TF 3) TF recs as above 4) rec NISS w/ TF's for glycemic control 5) Wound eval: BL heel partial thickness wounds per EMR documentation(06/24) .
--- NOTE | 2019-07-01 11:46 | Infectious Diseases Prog Note ---
Assessment/Plan Assessment/Plan IMPRESSION: COIVD19 Pneumonia, Positive on : 06/14, 06/20, 06/22, 06/25 Cholelithiasis and elevated transaminase level, acidosis, dementia with behavioral problem. Dysphagia Hepatitis C RECOMMENDATION: Will f/u COVID19 test Subjective ROS Limited/Unobtainable: Yes Constitutional: Denies: fever Neurologic: Reports: confusion, other - on restraint Allergies: Coded Allergies: No Known Allergies (Unverified , 06/15/19) Objective Vital Signs Last 24 Hour Vital Signs Date Time Temp Pulse Resp B/P (MAP) Pulse Ox O2 Delivery O2 Flow Rate FiO2 07/01/19 09:13 69 118/81 07/01/19 09:12 69 118/81 07/01/19 09:00 Nasal Cannula 2.0 07/01/19 08:00 98.5 69 17 118/81 (93) 100 07/01/19 04:00 98.2 78 20 130/70 (90) 96 07/01/19 00:00 97.8 80 20 120/74 (89) 95 06/30/19 21:00 Nasal Cannula 2.0 06/30/19 20:00 98.3 84 20 126/79 (95) 96 06/30/19 15:47 97.3 74 19 107/81 (90) 98 06/30/19 12:00 97.0 80 18 125/83 (97) 97 Height (Feet): 5 Height (Inches): 2.00 Weight (Pounds): 132 General Appearance: no acute distress HEENT: mucous membranes moist Respiratory/Chest: other - oxygen by nasal cannula Cardiovascular: normal rate Abdomen: other - NG tube Neurologic/Psychiatric: disoriented Laboratory Tests Test 07/01/19 05:50 White Blood Count 9.3 K/UL (4.8-10.8) Red Blood Count 4.93 M/UL (4.70-6.10) Hemoglobin 14.9 G/DL (14.2-18.0) Hematocrit 44.8 % (42.0-52.0) Mean Corpuscular Volume 91 FL (80-99) Mean Corpuscular Hemoglobin 30.3 PG (27.0-31.0) Mean Corpuscular Hemoglobin Concent 33.3 G/DL (32.0-36.0) Red Cell Distribution Width 13.1 % (11.6-14.8) Platelet Count 401 K/UL (150-450) Mean Platelet Volume 5.2 FL (6.5-10.1) L Neutrophils (%) (Auto) 45.7 % (45.0-75.0) Lymphocytes (%) (Auto) 42.5 % (20.0-45.0) Monocytes (%) (Auto) 9.2 % (1.0-10.0) Eosinophils (%) (Auto) 1.0 % (0.0-3.0) Basophils (%) (Auto) 1.6 % (0.0-2.0) Sodium Level 141 MMOL/L (136-145) Potassium Level 5.1 MMOL/L (3.5-5.1) Chloride Level 103 MMOL/L (98-107) Carbon Dioxide Level 31 MMOL/L (21-32) Anion Gap 7 mmol/L (5-15) Blood Urea Nitrogen 24 mg/dL (7-18) H Creatinine 0.8 MG/DL (0.55-1.30) Estimat Glomerular Filtration Rate > 60 mL/min (>60) Glucose Level 126 MG/DL (74-106) H Calcium Level 9.4 MG/DL (8.5-10.1) Phosphorus Level 4.0 MG/DL (2.5-4.9) Magnesium Level 2.5 MG/DL (1.8-2.4) H Total Bilirubin 0.3 MG/DL (0.2-1.0) Aspartate Amino Transf (AST/SGOT) 112 U/L (15-37) H Alanine Aminotransferase (ALT/SGPT) 109 U/L (12-78) H Alkaline Phosphatase 222 U/L (46-116) H C-Reactive Protein, Quantitative 5.8 mg/dL (0.00-0.90) H Pro-B-Type Natriuretic Peptide 263 pg/mL (0-125) H Total Protein 8.8 G/DL (6.4-8.2) H Albumin 2.2 G/DL (3.4-5.0) L Globulin 6.6 g/dL Current Medications Medications (Trade) Dose Ordered Sig/Kaylan Route PRN Reason Start Time Stop Time Status Last Admin Dose Admin Acetaminophen (Tylenol) 500 mg Q6H PRN ORAL For Pain 06/29/19 18:15 07/16/19 00:14 07/01/19 09:11 Acetaminophen (Tylenol) 650 mg Q6H PRN ORAL For Headache 06/29/19 18:00 07/16/19 17:59 Albuterol Sulfate (Proventil MDI) 2 puff Q6H PRN INH Shortness of Breath 06/29/19 18:00 09/14/19 17:59 Amlodipine Besylate (Norvasc) 5 mg DAILY NG 06/30/19 09:00 07/23/19 11:59 07/01/19 09:13 Aspirin (ASA) 81 mg DAILY ORAL 06/30/19 09:00 07/31/19 08:59 07/01/19 09:11 Docusate Sodium (Colace) 100 mg DAILY ORAL 06/30/19 09:00 07/16/19 08:59 07/01/19 09:11 Donepezil HCl (Aricept) 5 mg DAILY ORAL 06/30/19 09:00 07/16/19 08:59 07/01/19 09:11 Enoxaparin Sodium (Lovenox) 40 mg DAILY SUBQ 06/30/19 09:00 09/14/19 08:59 07/01/19 09:13 Hydralazine HCl (Apresoline) 25 mg Q4H PRN ORAL SBP > 160mmHg 06/29/19 17:30 09/20/19 13:29 Metoprolol Succinate (Toprol XL) 25 mg DAILY ORAL 06/30/19 09:00 09/17/19 19:14 07/01/19 09:12 Mirtazapine (Remeron) 15 mg BEDTIME ORAL 06/29/19 21:00 09/19/19 20:59 06/30/19 20:40 Ondansetron HCl (Zofran) 4 mg Q6H PRN IVP Nausea & Vomiting 06/29/19 18:00 07/16/19 17:59 Polyethylene Glycol (Miralax) 17 gm BEDTIME ORAL 06/29/19 21:00 07/17/19 20:59 06/30/19 20:40 Benigno Betancourt MD July 01, 2019 11:46
--- NOTE | 2019-07-01 11:55 | NUR ---
CASE MANAGEMENT:REVIEW SI;COVID-19 PNEUMONIA CHOLELITHIASIS. HEP C. ELEVATED LFT. 98.5 80 20 130/70 95%L NC BUN 24 MG 2.5 AST 112 ALT 109 ALK PHOS 222 CRP 5.8 ALB 2.2 IS;LOVENOX SUBQ QD TOPROL XL NGT QD NORVASC NGT QD ASA NGT QD MED SURG STATUS DCP;PATIENT IS FROM [facility] PLAN;PEG PLACEMENT WHEN OFF COVID-19 ISOLATION REPEAT COVID-19 SWAB - 06/29/19 RESULT PENDING
[2019-07-01 12:00] VITALS: BP 119/79
--- NOTE | 2019-07-01 12:32 | Nephrology Progress Note ---
Assessment/Plan Problem List: (1) Dehydration (2) Electrolyte imbalance (3) Elevated LFTs (4) HTN (hypertension) (5) Suspected 2019 novel coronavirus infection Assessment Electrolyte imbalance Dehydration and free water deficit Pneumonia suspected COVID-19 infection Elevated troponin Dementia Cholelithiasis and elevated liver enzymes BPH Hypertension Plan Positive for COVID-19 Normal saline 500 cc bolus Watch serum potassium and electrolytes Add Norvasc Hydralazine as needed for blood pressure over 160 systolic Monitor electrolyte Continue per consultants Urine analysis ordered as none is available since admission Per orders Subjective ROS Limited/Unobtainable: No Constitutional: Reports: malaise, weakness Objective Objective Last 24 Hour Vital Signs Date Time Temp Pulse Resp B/P (MAP) Pulse Ox O2 Delivery O2 Flow Rate FiO2 07/01/19 09:13 69 118/81 07/01/19 09:12 69 118/81 07/01/19 09:00 Nasal Cannula 2.0 07/01/19 08:00 98.5 69 17 118/81 (93) 100 07/01/19 04:00 98.2 78 20 130/70 (90) 96 07/01/19 00:00 97.8 80 20 120/74 (89) 95 06/30/19 21:00 Nasal Cannula 2.0 06/30/19 20:00 98.3 84 20 126/79 (95) 96 06/30/19 15:47 97.3 74 19 107/81 (90) 98 Intake and Output 06/30/19 07/01/19 19:00 07:00 Intake Total 773 ml 401 ml Balance 773 ml 401 ml Free Water 300 ml 100 ml Tube Feeding 473 ml 301 ml # Voids 3 # Bowel Movements 1 Laboratory Tests 07/01/19 05:50: White Blood Count 9.3, Red Blood Count 4.93, Hemoglobin 14.9, Hematocrit 44.8, Mean Corpuscular Volume 91, Mean Corpuscular Hemoglobin 30.3, Mean Corpuscular Hemoglobin Concent 33.3, Red Cell Distribution Width 13.1, Platelet Count 401, Mean Platelet Volume 5.2L, Neutrophils (%) (Auto) 45.7, Lymphocytes (%) (Auto) 42.5, Monocytes (%) (Auto) 9.2, Eosinophils (%) (Auto) 1.0, Basophils (%) (Auto ) 1.6, Sodium Level 141, Potassium Level 5.1, Chloride Level 103, Carbon Dioxide Level 31, Anion Gap 7, Blood Urea Nitrogen 24H, Creatinine 0.8, Estimat Glomerular Filtration Rate > 60, Glucose Level 126H, Calcium Level 9.4, Phosphorus Level 4.0, Magnesium Level 2.5H, Total Bilirubin 0.3, Aspartate Amino Transf (AST/SGOT) 112H, Alanine Aminotransferase (ALT/SGPT) 109H, Alkaline Phosphatase 222H, C-Reactive Protein, Quantitative 5.8H, Pro-B-Type Natriuretic Peptide 263H, Total Protein 8.8H, Albumin 2.2L, Globulin 6.6 Height (Feet): 5 Height (Inches): 2.00 Weight (Pounds): 132 General Appearance: no apparent distress EENT: other - NG tube Respiratory/Chest: decreased breath sounds Abdomen: distended Objective no change Drew Gonzalez MD July 01, 2019 12:32
[2019-07-01 16:00] VITALS: BP 117/83
--- NOTE | 2019-07-01 16:41 | General Progress Note ---
Assessment/Plan Problem List: (1) Elevated troponin ICD Codes: R79.89 - Other specified abnormal findings of blood chemistry SNOMED: 674781503, 003778367, 244160834 (2) Elevated LFTs ICD Codes: R79.89 - Other specified abnormal findings of blood chemistry SNOMED: 957589020, 449771086, 330466850 (3) Pneumonia ICD Codes: J18.9 - Pneumonia, unspecified organism SNOMED: 388676662, 874477057, 608247994 (4) Suspected 2019 novel coronavirus infection ICD Codes: R68.89 - Other general symptoms and signs SNOMED: 274454641 Status: progressing, unchanged Assessment/Plan: repeat covid positive pna resp insuff poor appetite pna sepsis s/p elevated trop afebrile reviewed chart and labs Subjective ROS Limited/Unobtainable: Yes Allergies: Coded Allergies: No Known Allergies (Unverified , 06/15/19) Objective Last 24 Hour Vital Signs Date Time Temp Pulse Resp B/P (MAP) Pulse Ox O2 Delivery O2 Flow Rate FiO2 07/01/19 16:00 98.4 63 18 117/83 (94) 99 07/01/19 12:00 97.6 70 18 119/79 (92) 98 07/01/19 09:13 69 118/81 07/01/19 09:12 69 118/81 07/01/19 09:00 Nasal Cannula 2.0 07/01/19 08:00 98.5 69 17 118/81 (93) 100 07/01/19 04:00 98.2 78 20 130/70 (90) 96 07/01/19 00:00 97.8 80 20 120/74 (89) 95 06/30/19 21:00 Nasal Cannula 2.0 06/30/19 20:00 98.3 84 20 126/79 (95) 96 Intake and Output 06/30/19 07/01/19 19:00 07:00 Intake Total 773 ml 401 ml Balance 773 ml 401 ml Free Water 300 ml 100 ml Tube Feeding 473 ml 301 ml # Voids 3 # Bowel Movements 1 Laboratory Tests 07/01/19 05:50: White Blood Count 9.3, Red Blood Count 4.93, Hemoglobin 14.9, Hematocrit 44.8, Mean Corpuscular Volume 91, Mean Corpuscular Hemoglobin 30.3, Mean Corpuscular Hemoglobin Concent 33.3, Red Cell Distribution Width 13.1, Platelet Count 401, Mean Platelet Volume 5.2L, Neutrophils (%) (Auto) 45.7, Lymphocytes (%) (Auto) 42.5, Monocytes (%) (Auto) 9.2, Eosinophils (%) (Auto) 1.0, Basophils (%) (Auto ) 1.6, Sodium Level 141, Potassium Level 5.1, Chloride Level 103, Carbon Dioxide Level 31, Anion Gap 7, Blood Urea Nitrogen 24H, Creatinine 0.8, Estimat Glomerular Filtration Rate > 60, Glucose Level 126H, Calcium Level 9.4, Phosphorus Level 4.0, Magnesium Level 2.5H, Total Bilirubin 0.3, Aspartate Amino Transf (AST/SGOT) 112H, Alanine Aminotransferase (ALT/SGPT) 109H, Alkaline Phosphatase 222H, C-Reactive Protein, Quantitative 5.8H, Pro-B-Type Natriuretic Peptide 263H, Total Protein 8.8H, Albumin 2.2L, Globulin 6.6 Height (Feet): 5 Height (Inches): 2.00 Weight (Pounds): 132 Respiratory/Chest: lungs clear Abdomen: soft Gorge Malhotra MD July 01, 2019 16:41
--- NOTE | 2019-07-01 19:20 | NUR ---
HAND-OFF: Report given to Avtar FRENCH and Jim FRENCH.
[2019-07-01 20:00] VITALS: BP 133/83
--- NOTE | 2019-07-01 20:13 | NUR ---
NURSE NOTES: Receive pt on the bed a&o x1, no sob, vitals are stable, no fever and no coughing. pt is on bilateral soft restraint.. pt has NG tube glucerna 1.5 is running. Bed is in the lower position, alarm on and locked. Call light within reach
[2019-07-01] MEDS: Miralax 17gm pkt ORAL SCH (20:35)
--- NOTE | 2019-07-01 23:58 | Cardiology Progress Note ---
Assessment/Plan Assessment/Plan 1. Dyspnea due to possibly combination of COVID-19 pneumonia in addition to with acute HFpEF, continue lasix and metoprolol. LVEF is at 65%. 2. Possible eat-KN-[id number] myocardial infarction or elevated troponin I level could be secondary to myonecrosis due to CHF. 3. HCV infection. 4. Elevated LFTs. Subjective Subjective No cardiac events reported. Objective Last 24 Hour Vital Signs Date Time Temp Pulse Resp B/P (MAP) Pulse Ox O2 Delivery O2 Flow Rate FiO2 07/01/19 21:00 Nasal Cannula 2.0 07/01/19 20:00 97.4 70 20 133/83 (100) 99 07/01/19 16:00 98.4 63 18 117/83 (94) 99 07/01/19 12:00 97.6 70 18 119/79 (92) 98 07/01/19 09:13 69 118/81 07/01/19 09:12 69 118/81 07/01/19 09:00 Nasal Cannula 2.0 07/01/19 08:00 98.5 69 17 118/81 (93) 100 07/01/19 04:00 98.2 78 20 130/70 (90) 96 07/01/19 00:00 97.8 80 20 120/74 (89) 95 Intake and Output 06/30/19 07/01/19 19:00 07:00 Intake Total 773 ml 401 ml Balance 773 ml 401 ml Free Water 300 ml 100 ml Tube Feeding 473 ml 301 ml # Voids 3 # Bowel Movements 1 2D Echo: LVEF 65%, grade I LVDD Laboratory Tests Test 07/01/19 05:50 White Blood Count 9.3 K/UL (4.8-10.8) Red Blood Count 4.93 M/UL (4.70-6.10) Hemoglobin 14.9 G/DL (14.2-18.0) Hematocrit 44.8 % (42.0-52.0) Mean Corpuscular Volume 91 FL (80-99) Mean Corpuscular Hemoglobin 30.3 PG (27.0-31.0) Mean Corpuscular Hemoglobin Concent 33.3 G/DL (32.0-36.0) Red Cell Distribution Width 13.1 % (11.6-14.8) Platelet Count 401 K/UL (150-450) Mean Platelet Volume 5.2 FL (6.5-10.1) L Neutrophils (%) (Auto) 45.7 % (45.0-75.0) Lymphocytes (%) (Auto) 42.5 % (20.0-45.0) Monocytes (%) (Auto) 9.2 % (1.0-10.0) Eosinophils (%) (Auto) 1.0 % (0.0-3.0) Basophils (%) (Auto) 1.6 % (0.0-2.0) Sodium Level 141 MMOL/L (136-145) Potassium Level 5.1 MMOL/L (3.5-5.1) Chloride Level 103 MMOL/L (98-107) Carbon Dioxide Level 31 MMOL/L (21-32) Anion Gap 7 mmol/L (5-15) Blood Urea Nitrogen 24 mg/dL (7-18) H Creatinine 0.8 MG/DL (0.55-1.30) Estimat Glomerular Filtration Rate > 60 mL/min (>60) Glucose Level 126 MG/DL (74-106) H Calcium Level 9.4 MG/DL (8.5-10.1) Phosphorus Level 4.0 MG/DL (2.5-4.9) Magnesium Level 2.5 MG/DL (1.8-2.4) H Total Bilirubin 0.3 MG/DL (0.2-1.0) Aspartate Amino Transf (AST/SGOT) 112 U/L (15-37) H Alanine Aminotransferase (ALT/SGPT) 109 U/L (12-78) H Alkaline Phosphatase 222 U/L (46-116) H C-Reactive Protein, Quantitative 5.8 mg/dL (0.00-0.90) H Pro-B-Type Natriuretic Peptide 263 pg/mL (0-125) H Total Protein 8.8 G/DL (6.4-8.2) H Albumin 2.2 G/DL (3.4-5.0) L Globulin 6.6 g/dL Objective HEENT: Atraumatic and normocephalic. Anicteric. Pupils are equal, round, and reactive to light and accommodation. Extraocular muscles intact. NECK: JVP is less than 5 cm. No carotid bruit. Carotid upstroke is 2+ bilaterally. CARDIOVASCULAR: Normal S1 and S2. Regular rate and rhythm. No murmurs, gallops, or rubs. PMI is at fourth intercostal space at midclavicular line. LUNGS: Diminished breath sounds in both bases with associated crackles. ABDOMEN: Soft, nontender, and nondistended. No hepatosplenomegaly. Positive bowel sounds. EXTREMITIES: No evidence of edema, clubbing, or cyanosis. Rolf Moreno MD July 01, 2019 23:58
[2019-07-02] VITALS (7 sets, daily range): BP systolic 122–142; BP diastolic 74–98
--- NOTE | 2019-07-02 00:10 | NUR ---
NURSE NOTES: Receive a lab result for covid 19 that collected on 06/28 and the result shows the patient is positive. The result is in the pt chart
--- NOTE | 2019-07-02 02:37 | Pulmonology Progress Note ---
Assessment/Plan Assessment/Plan Pulmonary Progress Note HPI: Patient is a 88-year-old male history of Dementia, Congestive Heart Failure , admitted from longterm facility with Pneumonia, COVID 19 positive, noted to have fever and shortness of breath, chest congestion and tightness for 2 days. Noted to be confused in the ED. Had been febrile with low-grade temperatures for the past 2 days. No vomiting or diarrhea or abdominal pain. Stable O2 requirements - 2L NC, stable Pulmonary Status clinically Awaiting G tube Seen earlier Seen on 07/01/2019 PMH: Dementia, Congestive Heart Failure Social Hx: [facility] Resident FHx: NC Allergies: No Known Allergies All Other Systems: limited - AMS Physical Exam Vital signs noted General: Awake and somewhat confused, no acute distress HEENT: NC/AT. EOMI. Cardiovascular: RRR. S1 and S2 normal. No murmur appreciated Resp: Mild tachypnea, normal work of breathing. On 2 L nasal cannula. No cough Abdomen: Abdomen is soft, nondistended. Nontender Skin: Intact. No abrasions, laceration or rash noted MSK: Normal tone and bulk. Moving all extremities. No obvious deformity. Neuro: Awake and somewhat confused. Poor historian. No focal signs Impression: Pneumonia Suspected 2019 novel coronavirus infection Elevated troponin, myonecrosis suspected Hepatitis C Elevated LFTs Lymphopenia Dementia Congestive Heart Failure [facility] Resident Plan Antibiotics/antivirals per ID O2 PRN Albuterol MDI PRN PPX - Lovenox ASA Monitor labs - hypokalemia - s/p supplementation Monitor cultures/viral studies Ultrasound of the abdomen pending. Isolation for suspected COVID-19 infection G tube pending Laboratory Tests noted EKG Rate: normal Rhythm: NSR ST Segments: no acute changes Sinus rhythm, left axis deviation. Occasional PACs. T wave inversions, no ST segment changes Chest X-Ray: Consolidations in the left lower lobe may represent an early pneumonia. No effusion. Current CXR slight worsening of infiltrates . Subjective ROS Limited/Unobtainable: No Constitutional: Denies: fever Respiratory: Reports: shortness of breath Allergies: Coded Allergies: No Known Allergies (Unverified , 06/15/19) All Systems: reviewed and negative except above Objective Last 24 Hour Vital Signs Date Time Temp Pulse Resp B/P (MAP) Pulse Ox O2 Delivery O2 Flow Rate FiO2 5/2/20 00:00 97.6 73 19 142/82 (102) 98 07/01/19 21:00 Nasal Cannula 2.0 07/01/19 20:00 97.4 70 20 133/83 (100) 99 07/01/19 16:00 98.4 63 18 117/83 (94) 99 07/01/19 12:00 97.6 70 18 119/79 (92) 98 07/01/19 09:13 69 118/81 07/01/19 09:12 69 118/81 07/01/19 09:00 Nasal Cannula 2.0 07/01/19 08:00 98.5 69 17 118/81 (93) 100 07/01/19 04:00 98.2 78 20 130/70 (90) 96 General Appearance: no acute distress HEENT: mucous membranes moist Abdomen: other - NG tube Extremities: no edema Neurologic/Psychiatric: disoriented Laboratory Tests 07/01/19 05:50: White Blood Count 9.3, Red Blood Count 4.93, Hemoglobin 14.9, Hematocrit 44.8, Mean Corpuscular Volume 91, Mean Corpuscular Hemoglobin 30.3, Mean Corpuscular Hemoglobin Concent 33.3, Red Cell Distribution Width 13.1, Platelet Count 401, Mean Platelet Volume 5.2L, Neutrophils (%) (Auto) 45.7, Lymphocytes (%) (Auto) 42.5, Monocytes (%) (Auto) 9.2, Eosinophils (%) (Auto) 1.0, Basophils (%) (Auto ) 1.6, Sodium Level 141, Potassium Level 5.1, Chloride Level 103, Carbon Dioxide Level 31, Anion Gap 7, Blood Urea Nitrogen 24H, Creatinine 0.8, Estimat Glomerular Filtration Rate > 60, Glucose Level 126H, Calcium Level 9.4, Phosphorus Level 4.0, Magnesium Level 2.5H, Total Bilirubin 0.3, Aspartate Amino Transf (AST/SGOT) 112H, Alanine Aminotransferase (ALT/SGPT) 109H, Alkaline Phosphatase 222H, C-Reactive Protein, Quantitative 5.8H, Pro-B-Type Natriuretic Peptide 263H, Total Protein 8.8H, Albumin 2.2L, Globulin 6.6 Current Medications Medications (Trade) Dose Ordered Sig/Kaylan Route PRN Reason Start Time Stop Time Status Last Admin Dose Admin Acetaminophen (Tylenol) 500 mg Q6H PRN ORAL For Pain 06/29/19 18:15 07/16/19 00:14 07/01/19 09:11 Acetaminophen (Tylenol) 650 mg Q6H PRN ORAL For Headache 06/29/19 18:00 07/16/19 17:59 Albuterol Sulfate (Proventil MDI) 2 puff Q6H PRN INH Shortness of Breath 06/29/19 18:00 09/14/19 17:59 Amlodipine Besylate (Norvasc) 5 mg DAILY NG 06/30/19 09:00 07/23/19 11:59 07/01/19 09:13 Aspirin (ASA) 81 mg DAILY ORAL 06/30/19 09:00 07/31/19 08:59 07/01/19 09:11 Docusate Sodium (Colace) 100 mg DAILY ORAL 06/30/19 09:00 07/16/19 08:59 07/01/19 09:11 Donepezil HCl (Aricept) 5 mg DAILY ORAL 06/30/19 09:00 07/16/19 08:59 07/01/19 09:11 Enoxaparin Sodium (Lovenox) 40 mg DAILY SUBQ 06/30/19 09:00 09/14/19 08:59 07/01/19 09:13 Hydralazine HCl (Apresoline) 25 mg Q4H PRN ORAL SBP > 160mmHg 06/29/19 17:30 09/20/19 13:29 Metoprolol Succinate (Toprol XL) 25 mg DAILY ORAL 06/30/19 09:00 09/17/19 19:14 07/01/19 09:12 Mirtazapine (Remeron) 15 mg BEDTIME ORAL 06/29/19 21:00 09/19/19 20:59 07/01/19 20:35 Ondansetron HCl (Zofran) 4 mg Q6H PRN IVP Nausea & Vomiting 06/29/19 18:00 07/16/19 17:59 Polyethylene Glycol (Miralax) 17 gm BEDTIME ORAL 06/29/19 21:00 07/17/19 20:59 07/01/19 20:35 Andrew Diaz MD July 02, 2019 02:37
--- NOTE | 2019-07-02 07:10 | NUR ---
HAND-OFF: Report given to MANOLO Nicholson. Endorsed the pt is fall risk
--- NOTE | 2019-07-02 07:11 | General Progress Note ---
Assessment/Plan Status: progressing, unchanged Assessment/Plan: 1. History of dementia. 2. CHF. 3. Hypertension. 4. BPH. 5. Constipation. 6. elevated LFTS 7. AMI 8. gallstones improving LFTS hep C positive>>> HCV RNA positive>>>patient needs out patient fu for treatment fu cardiology repeat labs in am ngt in place ngTF on COVID isolation patient needs GT speech eval appreciated. patient has passed swallow eval but refuses to eat plan PEG when off of isolation Subjective ROS Limited/Unobtainable: No Allergies: Coded Allergies: No Known Allergies (Unverified , 06/15/19) Objective Last 24 Hour Vital Signs Date Time Temp Pulse Resp B/P (MAP) Pulse Ox O2 Delivery O2 Flow Rate FiO2 07/02/19 06:00 97.2 73 19 130/82 (98) 98 07/02/19 04:00 97.2 73 19 130/82 (98) 98 07/02/19 00:00 97.6 73 19 142/82 (102) 98 07/01/19 21:00 Nasal Cannula 2.0 07/01/19 20:00 97.4 70 20 133/83 (100) 99 07/01/19 16:00 98.4 63 18 117/83 (94) 99 07/01/19 12:00 97.6 70 18 119/79 (92) 98 07/01/19 09:13 69 118/81 07/01/19 09:12 69 118/81 07/01/19 09:00 Nasal Cannula 2.0 07/01/19 08:00 98.5 69 17 118/81 (93) 100 Intake and Output 07/01/19 07/02/19 19:00 07:00 Intake Total 172 ml Balance 172 ml Tube Feeding 172 ml # Voids 2 # Bowel Movements 1 Laboratory Tests 07/02/19 05:40: White Blood Count [Pending], Red Blood Count [Pending], Hemoglobin [Pending], Hematocrit [Pending], Mean Corpuscular Volume [Pending], Mean Corpuscular Hemoglobin [Pending], Mean Corpuscular Hemoglobin Concent [Pending], Red Cell Distribution Width [Pending], Platelet Count [Pending], Mean Platelet Volume [ Pending], Neutrophils (%) (Auto) [Pending], Lymphocytes (%) (Auto) [Pending], Monocytes (%) (Auto) [Pending], Eosinophils (%) (Auto) [Pending], Basophils (%) (Auto) [Pending], Sodium Level [Pending], Potassium Level [Pending], Chloride Level [Pending], Carbon Dioxide Level [Pending], Blood Urea Nitrogen [Pending], Creatinine [Pending], Estimat Glomerular Filtration Rate [Pending], Glucose Level [Pending], Calcium Level [Pending] Height (Feet): 5 Height (Inches): 2.00 Weight (Pounds): 132 General Appearance: no apparent distress EENT: normal ENT inspection Neck: supple Cardiovascular: normal rate Respiratory/Chest: decreased breath sounds Abdomen: normal bowel sounds, non tender, soft Extremities: non-tender Perry Quiroga MD July 02, 2019 07:11
--- NOTE | 2019-07-02 07:30 | NUR ---
NURSE NOTES: Received patient in bed. Awake, Alert x1. On 2 lpm via NC. No signs of pain at this time. Bilateral soft wrist restraints in place, hands are warm and normal color for ethnicity. Condom catheter in place draining yellow urine. SCD in place. NGt flushed and patent, running feeding as ordered. Patient laying in semi-fowlers, bed at the lowest position, bed locked, call light within reach.
[2019-07-02 07:38] LABS: BASOPHILS % (AUTO) 1.1 % (0.0-2.0); EOSINOPHILS % (AUTO) 1.3 % (0.0-3.0); HEMATOCRIT 45.7 % (42.0-52.0); HEMOGLOBIN 15.1 G/DL (14.2-18.0); LYMPHOCYTES % (AUTO) 24.1 % (20.0-45.0); MEAN CORPUSCULAR VOLUME 91 FL (80-99); NEUTROPHILS % (AUTO) 65.5 % (45.0-75.0); PLATELET COUNT 441 K/UL (150-450); RED BLOOD COUNT 5.01 M/UL (4.70-6.10); RED CELL DISTRIBUTION WIDTH 13.2 % (11.6-14.8); WHITE BLOOD COUNT 7.7 K/UL (4.8-10.8)
[2019-07-02] MEDS: Donepezil 5mg Tab ORAL SCH (09:26)
[2019-07-02] MEDS: Aspirin Baby 81mg ORAL SCH (09:26)
[2019-07-02] MEDS: Docusate 100mg cap ORAL SCH (09:26)
[2019-07-02] MEDS: Metoprolol Succinate XL 25mg tab ORAL SCH (09:27)
[2019-07-02] MEDS: Enoxaparin 40mg Inj SUBQ SCH (09:30)
[2019-07-02 10:09] LABS: ANION GAP 4 mmol/L (5-15); BLOOD UREA NITROGEN 21 mg/dL (7-18); CARBON DIOXIDE 36 MMOL/L (21-32); CHLORIDE 102 MMOL/L (98-107); CREATININE 0.7 MG/DL (0.55-1.30); POTASSIUM 4.8 MMOL/L (3.5-5.1); SODIUM 142 MMOL/L (136-145)
--- NOTE | 2019-07-02 11:55 | Cardiology Progress Note ---
Assessment/Plan Assessment/Plan 1. Dyspnea due to possibly combination of COVID-19 pneumonia in addition to with acute HFpEF, continue lasix and metoprolol. LVEF is at 65%. 2. Possible dtq-XC-evqmeqnmv myocardial infarction or elevated troponin I level could be secondary to myonecrosis due to CHF. 3. HCV infection. 4. Elevated LFTs. Subjective Subjective No cardiac events reported. Objective Last 24 Hour Vital Signs Date Time Temp Pulse Resp B/P (MAP) Pulse Ox O2 Delivery O2 Flow Rate FiO2 07/02/19 09:27 64 122/74 07/02/19 09:27 64 122/74 07/02/19 09:00 Nasal Cannula 2.0 07/02/19 08:00 98.1 64 18 122/74 (90) 99 07/02/19 06:00 97.2 73 19 130/82 (98) 98 07/02/19 04:00 97.2 73 19 130/82 (98) 98 07/02/19 00:00 97.6 73 19 142/82 (102) 98 07/01/19 21:00 Nasal Cannula 2.0 07/01/19 20:00 97.4 70 20 133/83 (100) 99 07/01/19 16:00 98.4 63 18 117/83 (94) 99 07/01/19 12:00 97.6 70 18 119/79 (92) 98 Intake and Output 07/01/19 07/02/19 19:00 07:00 Intake Total 172 ml Balance 172 ml Tube Feeding 172 ml # Voids 2 # Bowel Movements 1 Laboratory Tests Test 07/02/19 05:40 07/02/19 09:40 White Blood Count 7.7 K/UL (4.8-10.8) Red Blood Count 5.01 M/UL (4.70-6.10) Hemoglobin 15.1 G/DL (14.2-18.0) Hematocrit 45.7 % (42.0-52.0) Mean Corpuscular Volume 91 FL (80-99) Mean Corpuscular Hemoglobin 30.1 PG (27.0-31.0) Mean Corpuscular Hemoglobin Concent 33.1 G/DL (32.0-36.0) Red Cell Distribution Width 13.2 % (11.6-14.8) Platelet Count 441 K/UL (150-450) Mean Platelet Volume 5.9 FL (6.5-10.1) L Neutrophils (%) (Auto) 65.5 % (45.0-75.0) Lymphocytes (%) (Auto) 24.1 % (20.0-45.0) Monocytes (%) (Auto) 8.0 % (1.0-10.0) Eosinophils (%) (Auto) 1.3 % (0.0-3.0) Basophils (%) (Auto) 1.1 % (0.0-2.0) Sodium Level 142 MMOL/L (136-145) Potassium Level 4.8 MMOL/L (3.5-5.1) Chloride Level 102 MMOL/L (98-107) Carbon Dioxide Level 36 MMOL/L (21-32) H Anion Gap 4 mmol/L (5-15) L Blood Urea Nitrogen 21 mg/dL (7-18) H Creatinine 0.7 MG/DL (0.55-1.30) Estimat Glomerular Filtration Rate > 60 mL/min (>60) Glucose Level 143 MG/DL (74-106) H Calcium Level 9.0 MG/DL (8.5-10.1) Microbiology Date/Time Source Procedure Growth Status 06/29/19 17:15 Nasopharynx Coronavirus COVID-19 PCR ([facility]) - Final Complete Objective HEENT: Atraumatic and normocephalic. Anicteric. Pupils are equal, round, and reactive to light and accommodation. Extraocular muscles intact. NECK: JVP is less than 5 cm. No carotid bruit. Carotid upstroke is 2+ bilaterally. CARDIOVASCULAR: Normal S1 and S2. Regular rate and rhythm. No murmurs, gallops, or rubs. PMI is at fourth intercostal space at midclavicular line. LUNGS: Diminished breath sounds in both bases with associated crackles. ABDOMEN: Soft, nontender, and nondistended. No hepatosplenomegaly. Positive bowel sounds. EXTREMITIES: No evidence of edema, clubbing, or cyanosis. Rolf Moreno MD July 02, 2019 11:55
--- NOTE | 2019-07-02 14:34 | Nephrology Progress Note ---
Assessment/Plan Problem List: (1) Dehydration (2) Electrolyte imbalance (3) Elevated LFTs (4) HTN (hypertension) (5) Suspected 2019 novel coronavirus infection Assessment Electrolyte imbalance Dehydration and free water deficit Pneumonia suspected COVID-19 infection Elevated troponin Dementia Cholelithiasis and elevated liver enzymes BPH Hypertension Plan Positive for COVID-19 Normal saline 500 cc bolus Watch serum potassium and electrolytes Add Norvasc Hydralazine as needed for blood pressure over 160 systolic Monitor electrolyte Continue per consultants Urine analysis ordered as none is available since admission Per orders Subjective ROS Limited/Unobtainable: No Constitutional: Reports: malaise, weakness Objective Objective Last 24 Hour Vital Signs Date Time Temp Pulse Resp B/P (MAP) Pulse Ox O2 Delivery O2 Flow Rate FiO2 07/02/19 09:27 64 122/74 07/02/19 09:27 64 122/74 07/02/19 09:00 Nasal Cannula 2.0 07/02/19 08:00 98.1 64 18 122/74 (90) 99 07/02/19 06:00 97.2 73 19 130/82 (98) 98 07/02/19 04:00 97.2 73 19 130/82 (98) 98 07/02/19 00:00 97.6 73 19 142/82 (102) 98 07/01/19 21:00 Nasal Cannula 2.0 07/01/19 20:00 97.4 70 20 133/83 (100) 99 07/01/19 16:00 98.4 63 18 117/83 (94) 99 Intake and Output 07/01/19 07/02/19 19:00 07:00 Intake Total 172 ml Balance 172 ml Tube Feeding 172 ml # Voids 2 # Bowel Movements 1 Laboratory Tests 07/02/19 05:40: White Blood Count 7.7, Red Blood Count 5.01, Hemoglobin 15.1, Hematocrit 45.7, Mean Corpuscular Volume 91, Mean Corpuscular Hemoglobin 30.1, Mean Corpuscular Hemoglobin Concent 33.1, Red Cell Distribution Width 13.2, Platelet Count 441, Mean Platelet Volume 5.9L, Neutrophils (%) (Auto) 65.5, Lymphocytes (%) (Auto) 24.1, Monocytes (%) (Auto) 8.0, Eosinophils (%) (Auto) 1.3, Basophils (%) (Auto ) 1.1 5/2/20 09:40: Sodium Level 142, Potassium Level 4.8, Chloride Level 102, Carbon Dioxide Level 36H, Anion Gap 4L, Blood Urea Nitrogen 21H, Creatinine 0.7, Estimat Glomerular Filtration Rate > 60, Glucose Level 143H, Calcium Level 9.0 Height (Feet): 5 Height (Inches): 2.00 Weight (Pounds): 132 General Appearance: no apparent distress EENT: other - Has NG tube Cardiovascular: normal rate Respiratory/Chest: decreased breath sounds Abdomen: soft Objective no change Drew Gonzalez MD July 02, 2019 14:34
--- NOTE | 2019-07-02 19:27 | NUR ---
HAND-OFF: Report given to Jim FRENCH and Avtar FRENCH.
--- NOTE | 2019-07-02 19:28 | NUR ---
NURSE NOTES: Receive pt on the bed a&o x1, no sob, vitals are stable, no fever and no coughing. pt is on bilateral soft restraint. pt has NG tube glucerna 1.5 is running. Bed is in the lower position, alarm on and locked. Call light within reach
--- NOTE | 2019-07-02 20:20 | General Progress Note ---
Assessment/Plan Problem List: (1) Elevated troponin ICD Codes: R79.89 - Other specified abnormal findings of blood chemistry SNOMED: 532884756, 434373205, 614878397 (2) Elevated LFTs ICD Codes: R79.89 - Other specified abnormal findings of blood chemistry SNOMED: 373831931, 817503607, 860580560 (3) Pneumonia ICD Codes: J18.9 - Pneumonia, unspecified organism SNOMED: 084649472, 417590338, 918695853 (4) Suspected 2019 novel coronavirus infection ICD Codes: R68.89 - Other general symptoms and signs SNOMED: 092837677 Status: progressing, unchanged Assessment/Plan: repeat covid positive pna weak malnutrition afebrile resp insuff poor appetite pna sepsis abx per id Subjective ROS Limited/Unobtainable: Yes Allergies: Coded Allergies: No Known Allergies (Unverified , 06/15/19) Objective Last 24 Hour Vital Signs Date Time Temp Pulse Resp B/P (MAP) Pulse Ox O2 Delivery O2 Flow Rate FiO2 07/02/19 16:00 98.0 76 18 128/78 (95) 96 07/02/19 12:00 98.6 70 18 127/79 (95) 96 07/02/19 09:27 64 122/74 07/02/19 09:27 64 122/74 07/02/19 09:00 Nasal Cannula 2.0 07/02/19 08:00 98.1 64 18 122/74 (90) 99 07/02/19 06:00 97.2 73 19 130/82 (98) 98 07/02/19 04:00 97.2 73 19 130/82 (98) 98 07/02/19 00:00 97.6 73 19 142/82 (102) 98 07/01/19 21:00 Nasal Cannula 2.0 Intake and Output 07/01/19 07/02/19 19:00 07:00 Intake Total 215 ml Balance 215 ml Tube Feeding 215 ml # Voids 2 # Bowel Movements 1 Laboratory Tests 07/02/19 05:40: White Blood Count 7.7, Red Blood Count 5.01, Hemoglobin 15.1, Hematocrit 45.7, Mean Corpuscular Volume 91, Mean Corpuscular Hemoglobin 30.1, Mean Corpuscular Hemoglobin Concent 33.1, Red Cell Distribution Width 13.2, Platelet Count 441, Mean Platelet Volume 5.9L, Neutrophils (%) (Auto) 65.5, Lymphocytes (%) (Auto) 24.1, Monocytes (%) (Auto) 8.0, Eosinophils (%) (Auto) 1.3, Basophils (%) (Auto ) 1.1 07/02/19 09:40: Sodium Level 142, Potassium Level 4.8, Chloride Level 102, Carbon Dioxide Level 36H, Anion Gap 4L, Blood Urea Nitrogen 21H, Creatinine 0.7, Estimat Glomerular Filtration Rate > 60, Glucose Level 143H, Calcium Level 9.0 Height (Feet): 5 Height (Inches): 2.00 Weight (Pounds): 132 Gorge Malhotra MD July 02, 2019 20:20
[2019-07-02] MEDS: Miralax 17gm pkt ORAL SCH (20:25)
--- NOTE | 2019-07-02 23:17 | Pulmonology Progress Note ---
Assessment/Plan Assessment/Plan Pulmonary Progress Note HPI: Patient is a 88-year-old male history of Dementia, Congestive Heart Failure , admitted from senior living facility with Pneumonia, COVID 19 positive, noted to have fever and shortness of breath, chest congestion and tightness for 2 days. Noted to be confused in the ED. Had been febrile with low-grade temperatures for the past 2 days. No vomiting or diarrhea or abdominal pain. Stable O2 requirements - 2L NC, stable Pulmonary Status clinically Awaiting G tube Seen earlier PMH: Dementia, Congestive Heart Failure Social Hx: Usp Resident FHx: NC Allergies: No Known Allergies All Other Systems: limited - AMS Physical Exam Vital signs noted General: Awake and somewhat confused, no acute distress HEENT: NC/AT. EOMI. Cardiovascular: RRR. S1 and S2 normal. No murmur appreciated Resp: Mild tachypnea, normal work of breathing. On 2 L nasal cannula. No cough Abdomen: Abdomen is soft, nondistended. Nontender Skin: Intact. No abrasions, laceration or rash noted MSK: Normal tone and bulk. Moving all extremities. No obvious deformity. Neuro: Awake and somewhat confused. Poor historian. No focal signs Impression: Pneumonia Suspected 2019 novel coronavirus infection Elevated troponin, myonecrosis suspected Hepatitis C Elevated LFTs Lymphopenia Dementia Congestive Heart Failure Usp Resident Plan Antibiotics/antivirals per ID O2 PRN Albuterol MDI PRN PPX - Lovenox ASA Monitor labs - hypokalemia - s/p supplementation Monitor cultures/viral studies Ultrasound of the abdomen pending. Isolation for suspected COVID-19 infection G tube pending Laboratory Tests noted EKG Rate: normal Rhythm: NSR ST Segments: no acute changes Sinus rhythm, left axis deviation. Occasional PACs. T wave inversions, no ST segment changes Chest X-Ray: Consolidations in the left lower lobe may represent an early pneumonia. No effusion. Current CXR slight worsening of infiltrates . Subjective ROS Limited/Unobtainable: No Constitutional: Denies: fever Respiratory: Reports: shortness of breath Allergies: Coded Allergies: No Known Allergies (Unverified , 06/15/19) All Systems: reviewed and negative except above Objective Last 24 Hour Vital Signs Date Time Temp Pulse Resp B/P (MAP) Pulse Ox O2 Delivery O2 Flow Rate FiO2 07/02/19 21:00 Nasal Cannula 2.0 07/02/19 20:00 97.4 82 20 135/98 (110) 92 07/02/19 16:00 98.0 76 18 128/78 (95) 96 07/02/19 12:00 98.6 70 18 127/79 (95) 96 07/02/19 09:27 64 122/74 07/02/19 09:27 64 122/74 07/02/19 09:00 Nasal Cannula 2.0 07/02/19 08:00 98.1 64 18 122/74 (90) 99 07/02/19 06:00 97.2 73 19 130/82 (98) 98 07/02/19 04:00 97.2 73 19 130/82 (98) 98 07/02/19 00:00 97.6 73 19 142/82 (102) 98 Intake and Output 07/01/19 07/02/19 19:00 07:00 Intake Total 215 ml Balance 215 ml Tube Feeding 215 ml # Voids 2 # Bowel Movements 1 General Appearance: no acute distress HEENT: mucous membranes moist Abdomen: other - NG tube Extremities: no edema Neurologic/Psychiatric: disoriented Laboratory Tests 07/02/19 05:40: White Blood Count 7.7, Red Blood Count 5.01, Hemoglobin 15.1, Hematocrit 45.7, Mean Corpuscular Volume 91, Mean Corpuscular Hemoglobin 30.1, Mean Corpuscular Hemoglobin Concent 33.1, Red Cell Distribution Width 13.2, Platelet Count 441, Mean Platelet Volume 5.9L, Neutrophils (%) (Auto) 65.5, Lymphocytes (%) (Auto) 24.1, Monocytes (%) (Auto) 8.0, Eosinophils (%) (Auto) 1.3, Basophils (%) (Auto ) 1.1 07/02/19 09:40: Sodium Level 142, Potassium Level 4.8, Chloride Level 102, Carbon Dioxide Level 36H, Anion Gap 4L, Blood Urea Nitrogen 21H, Creatinine 0.7, Estimat Glomerular Filtration Rate > 60, Glucose Level 143H, Calcium Level 9.0 Current Medications Medications (Trade) Dose Ordered Sig/Kaylan Route PRN Reason Start Time Stop Time Status Last Admin Dose Admin Acetaminophen (Tylenol) 500 mg Q6H PRN ORAL For Pain 06/29/19 18:15 07/16/19 00:14 07/01/19 09:11 Acetaminophen (Tylenol) 650 mg Q6H PRN ORAL For Headache 06/29/19 18:00 07/16/19 17:59 Albuterol Sulfate (Proventil MDI) 2 puff Q6H PRN INH Shortness of Breath 06/29/19 18:00 09/14/19 17:59 Amlodipine Besylate (Norvasc) 5 mg DAILY NG 06/30/19 09:00 07/23/19 11:59 07/02/19 09:27 Aspirin (ASA) 81 mg DAILY ORAL 06/30/19 09:00 07/31/19 08:59 07/02/19 09:26 Docusate Sodium (Colace) 100 mg DAILY ORAL 06/30/19 09:00 07/16/19 08:59 07/02/19 09:26 Donepezil HCl (Aricept) 5 mg DAILY ORAL 06/30/19 09:00 07/16/19 08:59 07/02/19 09:26 Enoxaparin Sodium (Lovenox) 40 mg DAILY SUBQ 06/30/19 09:00 09/14/19 08:59 07/02/19 09:30 Hydralazine HCl (Apresoline) 25 mg Q4H PRN ORAL SBP > 160mmHg 06/29/19 17:30 09/20/19 13:29 Metoprolol Succinate (Toprol XL) 25 mg DAILY ORAL 06/30/19 09:00 09/17/19 19:14 07/02/19 09:27 Mirtazapine (Remeron) 15 mg BEDTIME ORAL 06/29/19 21:00 09/19/19 20:59 07/02/19 20:26 Ondansetron HCl (Zofran) 4 mg Q6H PRN IVP Nausea & Vomiting 06/29/19 18:00 07/16/19 17:59 Polyethylene Glycol (Miralax) 17 gm BEDTIME ORAL 06/29/19 21:00 07/17/19 20:59 07/02/19 20:25 Andrew Diaz MD July 02, 2019 23:17
[2019-07-03] VITALS: BP 127/79
[2019-07-03 04:00] VITALS: BP 122/74
--- NOTE | 2019-07-03 04:00 | NUR ---
NURSE NOTES: Cleaned the pt and checked the skin. The skin is intact. Pt refused oral intake. NG tube is in place and restrains sites are asymptomatic
[2019-07-03 05:41] LABS: ALANINE AMINOTRANSFERASE 183 U/L (12-78); ALBUMIN 2.2 G/DL (3.4-5.0); ALBUMIN/GLOBULIN RATIO 0.3 (1.0-2.7); ALKALINE PHOSPHATASE 236 U/L (46-116); ANION GAP 4 mmol/L (5-15); ASPARTATE AMINO TRANSFERASE 155 U/L (15-37); BILIRUBIN,TOTAL 0.3 MG/DL (0.2-1.0); BLOOD UREA NITROGEN 21 mg/dL (7-18); CALCIUM 8.6 MG/DL (8.5-10.1); CARBON DIOXIDE 32 MMOL/L (21-32); CHLORIDE 105 MMOL/L (98-107); CREATININE 0.7 MG/DL (0.55-1.30); POTASSIUM 4.5 MMOL/L (3.5-5.1); SODIUM 140 MMOL/L (136-145)
[2019-07-03 05:44] LABS: BASOPHILS % (AUTO) 0.8 % (0.0-2.0); EOSINOPHILS % (AUTO) 1.3 % (0.0-3.0); HEMOGLOBIN 15.2 G/DL (14.2-18.0); LYMPHOCYTES % (AUTO) 21.6 % (20.0-45.0); MEAN CORPUSCULAR VOLUME 90 FL (80-99); MONOCYTES % (AUTO) 9.6 % (1.0-10.0); NEUTROPHILS % (AUTO) 66.6 % (45.0-75.0); PLATELET COUNT 404 K/UL (150-450); RED BLOOD COUNT 4.98 M/UL (4.70-6.10); RED CELL DISTRIBUTION WIDTH 13.2 % (11.6-14.8); WHITE BLOOD COUNT 8.1 K/UL (4.8-10.8)
--- NOTE | 2019-07-03 06:41 | General Progress Note ---
Assessment/Plan Status: progressing, unchanged Assessment/Plan: 1. History of dementia. 2. CHF. 3. Hypertension. 4. BPH. 5. Constipation. 6. elevated LFTS 7. AMI 8. gallstones improving LFTS hep C positive>>> HCV RNA positive>>>patient needs out patient fu for treatment fu cardiology repeat labs in am ngt in place ngTF on COVID isolation patient needs GT speech eval appreciated. patient has passed swallow eval but refuses to eat plan PEG when off of isolation Subjective Allergies: Coded Allergies: No Known Allergies (Unverified , 06/15/19) Objective Last 24 Hour Vital Signs Date Time Temp Pulse Resp B/P (MAP) Pulse Ox O2 Delivery O2 Flow Rate FiO2 07/03/19 04:00 97.6 78 19 122/74 (90) 95 07/03/19 00:00 98.6 70 18 127/79 (95) 96 07/02/19 21:00 Nasal Cannula 2.0 07/02/19 20:00 97.4 82 20 135/98 (110) 92 07/02/19 16:00 98.0 76 18 128/78 (95) 96 07/02/19 12:00 98.6 70 18 127/79 (95) 96 07/02/19 09:27 64 122/74 07/02/19 09:27 64 122/74 07/02/19 09:00 Nasal Cannula 2.0 07/02/19 08:00 98.1 64 18 122/74 (90) 99 Intake and Output 07/02/19 07/03/19 19:00 07:00 Intake Total 773 ml Balance 773 ml Free Water 300 ml Tube Feeding 473 ml # Voids 2 Laboratory Tests 07/02/19 09:40: Sodium Level 142, Potassium Level 4.8, Chloride Level 102, Carbon Dioxide Level 36H, Anion Gap 4L, Blood Urea Nitrogen 21H, Creatinine 0.7, Estimat Glomerular Filtration Rate > 60, Glucose Level 143H, Calcium Level 9.0 07/03/19 05:00: Sodium Level 140, Potassium Level 4.5, Chloride Level 105, Carbon Dioxide Level 32, Anion Gap 4L, Blood Urea Nitrogen 21H, Creatinine 0.7, Estimat Glomerular Filtration Rate > 60, Glucose Level 157H, Calcium Level 8.6, White Blood Count 8.1, Red Blood Count 4.98, Hemoglobin 15.2, Hematocrit 45.0, Mean Corpuscular Volume 90, Mean Corpuscular Hemoglobin 30.5, Mean Corpuscular Hemoglobin Concent 33.7, Red Cell Distribution Width 13.2, Platelet Count 404, Mean Platelet Volume 5.7L, Neutrophils (%) (Auto) 66.6, Lymphocytes (%) (Auto) 21.6, Monocytes (%) (Auto) 9.6, Eosinophils (%) (Auto) 1.3, Basophils (%) (Auto) 0.8, Total Bilirubin 0.3, Aspartate Amino Transf (AST/SGOT) 155H, Alanine Aminotransferase (ALT/SGPT) 183H, Alkaline Phosphatase 236H, Total Protein 8.7H , Albumin 2.2L, Globulin 6.5, Albumin/Globulin Ratio 0.3L Height (Feet): 5 Height (Inches): 2.00 Weight (Pounds): 132 General Appearance: lethargic EENT: normal ENT inspection Neck: supple Cardiovascular: tachycardia Respiratory/Chest: decreased breath sounds Abdomen: normal bowel sounds, non tender, soft Extremities: non-tender Perry Quiroga MD July 03, 2019 06:41
--- NOTE | 2019-07-03 07:20 | NUR ---
HAND-OFF: Report given to MANOLO BRAVO. Endorsed the nurse pt is fall risk
--- NOTE | 2019-07-03 07:56 | NUR ---
NURSE NOTES: received patient in bed, asleep, on NC oxygen at 2L/min, no sign of S/S of distress. Patient has NGT, receives Glucerna 1.5v @ 43cc/hr. IV access LFA saline locked. On bilateral soft wrist restraint, skin intact under wrists. Bed locked at the lowest position possible, call light within easy reach, siderails up x3. Will continue to monitor patient and follow up with the plan of care.
[2019-07-03 08:00] VITALS: BP 137/93
[2019-07-03] MEDS: Donepezil 5mg Tab ORAL SCH (09:31)
[2019-07-03] MEDS: Metoprolol Succinate XL 25mg tab ORAL SCH (09:32)
[2019-07-03] MEDS: Docusate 100mg cap ORAL SCH (09:32)
[2019-07-03] MEDS: Aspirin Baby 81mg ORAL SCH (09:32)
[2019-07-03] MEDS: Enoxaparin 40mg Inj SUBQ SCH (09:34)
--- NOTE | 2019-07-03 10:49 | Nephrology Progress Note ---
Assessment/Plan Problem List: (1) Dehydration (2) Electrolyte imbalance (3) Elevated LFTs (4) HTN (hypertension) (5) Suspected 2019 novel coronavirus infection Assessment Electrolyte imbalance Dehydration and free water deficit Pneumonia suspected COVID-19 infection Elevated troponin Dementia Cholelithiasis and elevated liver enzymes BPH Hypertension Plan Positive for COVID-19 Normal saline 500 cc bolus as needed Watch serum potassium and electrolytes Add Norvasc Hydralazine as needed for blood pressure over 160 systolic Monitor electrolyte Continue per consultants Urine analysis ordered as none is available since admission Per orders Subjective ROS Limited/Unobtainable: Yes Objective Objective Last 24 Hour Vital Signs Date Time Temp Pulse Resp B/P (MAP) Pulse Ox O2 Delivery O2 Flow Rate FiO2 07/03/19 09:32 78 137/93 07/03/19 09:32 78 137/93 07/03/19 08:00 98.6 78 17 137/93 (108) 94 07/03/19 04:00 97.6 78 19 122/74 (90) 95 07/03/19 00:00 98.6 70 18 127/79 (95) 96 07/02/19 21:00 Nasal Cannula 2.0 07/02/19 20:00 97.4 82 20 135/98 (110) 92 07/02/19 16:00 98.0 76 18 128/78 (95) 96 07/02/19 12:00 98.6 70 18 127/79 (95) 96 Intake and Output 07/02/19 07/03/19 19:00 07:00 Intake Total 773 ml Balance 773 ml Free Water 300 ml Tube Feeding 473 ml # Voids 2 Laboratory Tests 07/03/19 05:00: White Blood Count 8.1, Red Blood Count 4.98, Hemoglobin 15.2, Hematocrit 45.0, Mean Corpuscular Volume 90, Mean Corpuscular Hemoglobin 30.5, Mean Corpuscular Hemoglobin Concent 33.7, Red Cell Distribution Width 13.2, Platelet Count 404, Mean Platelet Volume 5.7L, Neutrophils (%) (Auto) 66.6, Lymphocytes (%) (Auto) 21.6, Monocytes (%) (Auto) 9.6, Eosinophils (%) (Auto) 1.3, Basophils (%) (Auto ) 0.8, Sodium Level 140, Potassium Level 4.5, Chloride Level 105, Carbon Dioxide Level 32, Anion Gap 4L, Blood Urea Nitrogen 21H, Creatinine 0.7, Estimat Glomerular Filtration Rate > 60, Glucose Level 157H, Calcium Level 8.6, Total Bilirubin 0.3, Aspartate Amino Transf (AST/SGOT) 155H, Alanine Aminotransferase (ALT/SGPT) 183H, Alkaline Phosphatase 236H, Total Protein 8.7H , Albumin 2.2L, Globulin 6.5, Albumin/Globulin Ratio 0.3L Height (Feet): 5 Height (Inches): 2.00 Weight (Pounds): 132 General Appearance: no apparent distress, lethargic Cardiovascular: normal rate Respiratory/Chest: decreased breath sounds Abdomen: soft Objective no change Drew Gonzalez MD July 03, 2019 10:49
[2019-07-03 12:00] VITALS: BP 124/75
--- NOTE | 2019-07-03 13:03 | Infectious Diseases Prog Note ---
Assessment/Plan Assessment/Plan IMPRESSION: COIVD19 Pneumonia, Positive on : 06/14, 06/20, 06/22, 06/25, 06/28 Cholelithiasis and elevated transaminase level, acidosis, dementia with behavioral problem. Dysphagia Hepatitis C RECOMMENDATION: Will f/u COVID19 test Subjective ROS Limited/Unobtainable: Yes Allergies: Coded Allergies: No Known Allergies (Unverified , 06/15/19) Objective Vital Signs Last 24 Hour Vital Signs Date Time Temp Pulse Resp B/P (MAP) Pulse Ox O2 Delivery O2 Flow Rate FiO2 07/03/19 12:00 97.3 80 18 124/75 (91) 93 07/03/19 09:32 78 137/93 07/03/19 09:32 78 137/93 07/03/19 09:00 Nasal Cannula 2.0 07/03/19 08:00 98.6 78 17 137/93 (108) 94 07/03/19 04:00 97.6 78 19 122/74 (90) 95 07/03/19 00:00 98.6 70 18 127/79 (95) 96 07/02/19 21:00 Nasal Cannula 2.0 07/02/19 20:00 97.4 82 20 135/98 (110) 92 07/02/19 16:00 98.0 76 18 128/78 (95) 96 Height (Feet): 5 Height (Inches): 2.00 Weight (Pounds): 132 General Appearance: no acute distress HEENT: mucous membranes moist Cardiovascular: normal rate Abdomen: soft, non tender, other - NGT feeding Extremities: no edema Neurologic/Psychiatric: other - sleeping Laboratory Tests Test 07/03/19 05:00 White Blood Count 8.1 K/UL (4.8-10.8) Red Blood Count 4.98 M/UL (4.70-6.10) Hemoglobin 15.2 G/DL (14.2-18.0) Hematocrit 45.0 % (42.0-52.0) Mean Corpuscular Volume 90 FL (80-99) Mean Corpuscular Hemoglobin 30.5 PG (27.0-31.0) Mean Corpuscular Hemoglobin Concent 33.7 G/DL (32.0-36.0) Red Cell Distribution Width 13.2 % (11.6-14.8) Platelet Count 404 K/UL (150-450) Mean Platelet Volume 5.7 FL (6.5-10.1) L Neutrophils (%) (Auto) 66.6 % (45.0-75.0) Lymphocytes (%) (Auto) 21.6 % (20.0-45.0) Monocytes (%) (Auto) 9.6 % (1.0-10.0) Eosinophils (%) (Auto) 1.3 % (0.0-3.0) Basophils (%) (Auto) 0.8 % (0.0-2.0) Sodium Level 140 MMOL/L (136-145) Potassium Level 4.5 MMOL/L (3.5-5.1) Chloride Level 105 MMOL/L (98-107) Carbon Dioxide Level 32 MMOL/L (21-32) Anion Gap 4 mmol/L (5-15) L Blood Urea Nitrogen 21 mg/dL (7-18) H Creatinine 0.7 MG/DL (0.55-1.30) Estimat Glomerular Filtration Rate > 60 mL/min (>60) Glucose Level 157 MG/DL (74-106) H Calcium Level 8.6 MG/DL (8.5-10.1) Total Bilirubin 0.3 MG/DL (0.2-1.0) Aspartate Amino Transf (AST/SGOT) 155 U/L (15-37) H Alanine Aminotransferase (ALT/SGPT) 183 U/L (12-78) H Alkaline Phosphatase 236 U/L (46-116) H Total Protein 8.7 G/DL (6.4-8.2) H Albumin 2.2 G/DL (3.4-5.0) L Globulin 6.5 g/dL Albumin/Globulin Ratio 0.3 (1.0-2.7) L Current Medications Medications (Trade) Dose Ordered Sig/Kaylan Route PRN Reason Start Time Stop Time Status Last Admin Dose Admin Acetaminophen (Tylenol) 500 mg Q6H PRN ORAL For Pain 06/29/19 18:15 07/16/19 00:14 07/01/19 09:11 Acetaminophen (Tylenol) 650 mg Q6H PRN ORAL For Headache 06/29/19 18:00 07/16/19 17:59 Albuterol Sulfate (Proventil MDI) 2 puff Q6H PRN INH Shortness of Breath 06/29/19 18:00 09/14/19 17:59 Amlodipine Besylate (Norvasc) 5 mg DAILY NG 06/30/19 09:00 07/23/19 11:59 07/03/19 09:32 Aspirin (ASA) 81 mg DAILY ORAL 06/30/19 09:00 07/31/19 08:59 07/03/19 09:32 Docusate Sodium (Colace) 100 mg DAILY ORAL 06/30/19 09:00 07/16/19 08:59 07/03/19 09:32 Donepezil HCl (Aricept) 5 mg DAILY ORAL 06/30/19 09:00 07/16/19 08:59 07/03/19 09:31 Enoxaparin Sodium (Lovenox) 40 mg DAILY SUBQ 06/30/19 09:00 09/14/19 08:59 07/03/19 09:34 Hydralazine HCl (Apresoline) 25 mg Q4H PRN ORAL SBP > 160mmHg 06/29/19 17:30 09/20/19 13:29 Metoprolol Succinate (Toprol XL) 25 mg DAILY ORAL 06/30/19 09:00 09/17/19 19:14 07/03/19 09:32 Mirtazapine (Remeron) 15 mg BEDTIME ORAL 06/29/19 21:00 09/19/19 20:59 07/02/19 20:26 Ondansetron HCl (Zofran) 4 mg Q6H PRN IVP Nausea & Vomiting 06/29/19 18:00 07/16/19 17:59 Polyethylene Glycol (Miralax) 17 gm BEDTIME ORAL 06/29/19 21:00 07/17/19 20:59 07/02/19 20:25 Benigno Betancourt MD July 03, 2019 13:03
[2019-07-03 16:00] VITALS: BP 112/77
--- NOTE | 2019-07-03 18:55 | Pulmonology Progress Note ---
Assessment/Plan Assessment/Plan Pulmonary Progress Note HPI: Patient is a 88-year-old male history of Dementia, Congestive Heart Failure , admitted from nursing home facility with Pneumonia, COVID 19 positive, noted to have fever and shortness of breath, chest congestion and tightness for 2 days. Noted to be confused in the ED. Had been febrile with low-grade temperatures for the past 2 days. No vomiting or diarrhea or abdominal pain. Stable O2 requirements - 2L NC, stable Pulmonary Status clinically, Covid isolation Awaiting G tube Seen earlier PMH: Dementia, Congestive Heart Failure Social Hx: Retirement Resident FHx: NC Allergies: No Known Allergies All Other Systems: limited - AMS Physical Exam Vital signs noted General: Awake and somewhat confused, no acute distress HEENT: NC/AT. EOMI. Cardiovascular: RRR. S1 and S2 normal. No murmur appreciated Resp: Mild tachypnea, normal work of breathing. On 2 L nasal cannula. No cough Abdomen: Abdomen is soft, nondistended. Nontender Skin: Intact. No abrasions, laceration or rash noted MSK: Normal tone and bulk. Moving all extremities. No obvious deformity. Neuro: Awake and somewhat confused. Poor historian. No focal signs Impression: Pneumonia Suspected 2019 novel coronavirus infection Elevated troponin, myonecrosis suspected Hepatitis C Elevated LFTs Lymphopenia Dementia Congestive Heart Failure Retirement Resident Plan Antibiotics/antivirals per ID O2 PRN Albuterol MDI PRN PPX - Lovenox ASA Monitor labs - hypokalemia - s/p supplementation Monitor cultures/viral studies Ultrasound of the abdomen pending. Isolation for suspected COVID-19 infection G tube pending Laboratory Tests noted EKG Rate: normal Rhythm: NSR ST Segments: no acute changes Sinus rhythm, left axis deviation. Occasional PACs. T wave inversions, no ST segment changes Chest X-Ray: Consolidations in the left lower lobe may represent an early pneumonia. No effusion. Current CXR slight worsening of infiltrates . Subjective ROS Limited/Unobtainable: No Constitutional: Denies: fever Respiratory: Reports: shortness of breath Allergies: Coded Allergies: No Known Allergies (Unverified , 06/15/19) All Systems: reviewed and negative except above Objective Last 24 Hour Vital Signs Date Time Temp Pulse Resp B/P (MAP) Pulse Ox O2 Delivery O2 Flow Rate FiO2 07/03/19 16:00 98.4 82 18 112/77 (89) 93 07/03/19 12:00 97.3 80 18 124/75 (91) 93 07/03/19 09:32 78 137/93 07/03/19 09:32 78 137/93 07/03/19 09:00 Nasal Cannula 2.0 07/03/19 08:00 98.6 78 17 137/93 (108) 94 07/03/19 04:00 97.6 78 19 122/74 (90) 95 07/03/19 00:00 98.6 70 18 127/79 (95) 96 07/02/19 21:00 Nasal Cannula 2.0 07/02/19 20:00 97.4 82 20 135/98 (110) 92 Intake and Output 07/02/19 07/03/19 19:00 07:00 Intake Total 773 ml 43 ml Balance 773 ml 43 ml Free Water 300 ml Tube Feeding 473 ml 43 ml # Voids 2 General Appearance: no acute distress HEENT: mucous membranes moist Abdomen: soft, non tender, other - NGT feeding Extremities: no edema Neurologic/Psychiatric: other - sleeping Laboratory Tests 07/03/19 05:00: White Blood Count 8.1, Red Blood Count 4.98, Hemoglobin 15.2, Hematocrit 45.0, Mean Corpuscular Volume 90, Mean Corpuscular Hemoglobin 30.5, Mean Corpuscular Hemoglobin Concent 33.7, Red Cell Distribution Width 13.2, Platelet Count 404, Mean Platelet Volume 5.7L, Neutrophils (%) (Auto) 66.6, Lymphocytes (%) (Auto) 21.6, Monocytes (%) (Auto) 9.6, Eosinophils (%) (Auto) 1.3, Basophils (%) (Auto ) 0.8, Sodium Level 140, Potassium Level 4.5, Chloride Level 105, Carbon Dioxide Level 32, Anion Gap 4L, Blood Urea Nitrogen 21H, Creatinine 0.7, Estimat Glomerular Filtration Rate > 60, Glucose Level 157H, Calcium Level 8.6, Total Bilirubin 0.3, Aspartate Amino Transf (AST/SGOT) 155H, Alanine Aminotransferase (ALT/SGPT) 183H, Alkaline Phosphatase 236H, Total Protein 8.7H , Albumin 2.2L, Globulin 6.5, Albumin/Globulin Ratio 0.3L Current Medications Medications (Trade) Dose Ordered Sig/Kaylan Route PRN Reason Start Time Stop Time Status Last Admin Dose Admin Acetaminophen (Tylenol) 500 mg Q6H PRN ORAL For Pain 06/29/19 18:15 07/16/19 00:14 07/01/19 09:11 Acetaminophen (Tylenol) 650 mg Q6H PRN ORAL For Headache 06/29/19 18:00 07/16/19 17:59 Albuterol Sulfate (Proventil MDI) 2 puff Q6H PRN INH Shortness of Breath 06/29/19 18:00 09/14/19 17:59 Amlodipine Besylate (Norvasc) 5 mg DAILY NG 06/30/19 09:00 07/23/19 11:59 07/03/19 09:32 Aspirin (ASA) 81 mg DAILY ORAL 06/30/19 09:00 07/31/19 08:59 07/03/19 09:32 Docusate Sodium (Colace) 100 mg DAILY ORAL 06/30/19 09:00 07/16/19 08:59 07/03/19 09:32 Donepezil HCl (Aricept) 5 mg DAILY ORAL 06/30/19 09:00 07/16/19 08:59 07/03/19 09:31 Enoxaparin Sodium (Lovenox) 40 mg DAILY SUBQ 06/30/19 09:00 09/14/19 08:59 07/03/19 09:34 Hydralazine HCl (Apresoline) 25 mg Q4H PRN ORAL SBP > 160mmHg 06/29/19 17:30 09/20/19 13:29 Metoprolol Succinate (Toprol XL) 25 mg DAILY ORAL 06/30/19 09:00 09/17/19 19:14 07/03/19 09:32 Mirtazapine (Remeron) 15 mg BEDTIME ORAL 06/29/19 21:00 09/19/19 20:59 07/02/19 20:26 Ondansetron HCl (Zofran) 4 mg Q6H PRN IVP Nausea & Vomiting 06/29/19 18:00 07/16/19 17:59 Polyethylene Glycol (Miralax) 17 gm BEDTIME ORAL 06/29/19 21:00 07/17/19 20:59 07/02/19 20:25 Andrew Diaz MD July 03, 2019 18:55
--- NOTE | 2019-07-03 19:31 | NUR ---
HAND-OFF: Report given to MANOLO Sahu.
[2019-07-03 20:00] VITALS: BP 130/77
--- NOTE | 2019-07-03 20:00 | NUR ---
NURSE NOTES: Patient received in bed on o2 via NC. On NGT feeding, 72cm on the left nare, resecured with tape. no residual noted. Bilateral soft wrist restraints, no swelling noted, pulses and sensation present. Bed is locked in low position; HOB elevated, aspiration precautions. Bed alarm on. WIll continue to monitor.
[2019-07-03] MEDS: Miralax 17gm pkt ORAL SCH (20:43)
--- NOTE | 2019-07-03 20:52 | Hematology/Onc Progress Note ---
Assessment/Plan Assessment/Plan Assessment and Plan: # Leukopenia -- multiple etiologies could be related to underlying liver disease , medication-induced, infection versus viral syndrome, in this case likely due to COVID19+, and Hep C+ --> peripheral smear has been ordered and does not show significant abnormalities --> Medications have been reviewed --> Continue to monitor for improvement, trend cbc --> Hep panel and HIV have been ordered--> cw hep C++ exposure --> US abd ordered to r/o cirrhosis and hepatosplenomegaly --> none noted --> reverse isolation if ANC is <2000 --> Give neupogen if ANC <1000 --> 06/22 off abx, repeat covid pending -> HAS IMPROVED SINCE ADMISSION # Suspected 2019 novel coronavirus infection --> per id, on plaq, abx --> iso --> pulm eval recs noted --> 06/22 off abx per id # Pneumonia --> on abx --> oxygen prn --> per id # Elevated troponin ==> nstemi per cards --> diuresis prn # Elevated LFTs --> likely hep C related # Dysphagia with dec weight loss --> recommend gtube --> as per gi # Dvt ppx lovenox sq The timing of this note does not necessarily reflect the time of the patient was seen. Greatly appreciate consultation. Subjective HEENT: Denies: no symptoms, eye pain, blurred vision, tearing, double vision, ear pain, ear discharge, nose pain, nose congestion, throat pain, throat swelling, mouth pain, mouth swelling, other Cardiovascular: Denies: no symptoms, chest pain, edema, irregular heart rate, lightheadedness, palpitations, syncope, other Respiratory: Denies: no symptoms, cough, shortness of breath, SOB with excertion, SOB at rest, sputum, wheezing, other Gastrointestinal/Abdominal: Denies: no symptoms, abdomen distended, abdominal pain, black stools, tarry stools, blood in stool, constipated, diarrhea, difficulty swallowing, nausea, poor appetite, poor fluid intake, rectal bleeding , vomiting, other Genitourinary: Denies: no symptoms, burning, discharge, frequency, flank pain, hematuria, incontinence, pain, urgency, other Neurologic/Psychiatric: Denies: no symptoms, anxiety, depressed, emotional problems, headache, numbness, paresthesia, pre-existing deficit, seizure, tingling, tremors, weakness, other Endocrine: Denies: no symptoms, excessive sweating, flushing, intolerance to cold, intolerance to heat, increased hunger, increased thirst, increased urine, unexplained weight gain, unexplained weight loss, other Allergies: Coded Allergies: No Known Allergies (Unverified , 06/15/19) Subjective 06/20 breathing is better, on iso for covid 19, wbc improved 06/21 labs better, no bleeding, no f/c, meds noted, hcv+ 06/22 restraints, off abx, repeat covid pending, nc 06/23 no bleeding, labs noted, no night sweats, cbc reviewed, on 2l nc 06/25 remains on glucerna, have ordered for labs, no bleeding 06/26 remains on 2lnc as for covid infection, for iso 06/27 is on 2lnc, no bleeding, labs reviewed, no night sweats 06/28 labs have improved, no bleeding or chills, imaging noted 06/29 plan for peg when off iso, no bleeding, dw gi 06/30 with nc on board, ngt is running, no bleeding noted 07/02 labs are noted, no bleeding, meds reviewed Objective Objective Current Medications Medications (Trade) Dose Ordered Sig/Kaylan Route PRN Reason Start Time Stop Time Status Last Admin Dose Admin Acetaminophen (Tylenol) 500 mg Q6H PRN ORAL For Pain 06/29/19 18:15 07/16/19 00:14 07/01/19 09:11 Acetaminophen (Tylenol) 650 mg Q6H PRN ORAL For Headache 06/29/19 18:00 07/16/19 17:59 Albuterol Sulfate (Proventil MDI) 2 puff Q6H PRN INH Shortness of Breath 06/29/19 18:00 09/14/19 17:59 Amlodipine Besylate (Norvasc) 5 mg DAILY NG 06/30/19 09:00 07/23/19 11:59 07/03/19 09:32 Aspirin (ASA) 81 mg DAILY ORAL 06/30/19 09:00 07/31/19 08:59 07/03/19 09:32 Docusate Sodium (Colace) 100 mg DAILY ORAL 06/30/19 09:00 07/16/19 08:59 07/03/19 09:32 Donepezil HCl (Aricept) 5 mg DAILY ORAL 06/30/19 09:00 07/16/19 08:59 07/03/19 09:31 Enoxaparin Sodium (Lovenox) 40 mg DAILY SUBQ 06/30/19 09:00 09/14/19 08:59 07/03/19 09:34 Hydralazine HCl (Apresoline) 25 mg Q4H PRN ORAL SBP > 160mmHg 06/29/19 17:30 09/20/19 13:29 Metoprolol Succinate (Toprol XL) 25 mg DAILY ORAL 06/30/19 09:00 09/17/19 19:14 07/03/19 09:32 Mirtazapine (Remeron) 15 mg BEDTIME ORAL 06/29/19 21:00 09/19/19 20:59 07/03/19 20:43 Ondansetron HCl (Zofran) 4 mg Q6H PRN IVP Nausea & Vomiting 06/29/19 18:00 07/16/19 17:59 Polyethylene Glycol (Miralax) 17 gm BEDTIME ORAL 06/29/19 21:00 07/17/19 20:59 07/02/19 20:25 Last 24 Hour Vital Signs Date Time Temp Pulse Resp B/P (MAP) Pulse Ox O2 Delivery O2 Flow Rate FiO2 07/03/19 16:00 98.4 82 18 112/77 (89) 93 07/03/19 12:00 97.3 80 18 124/75 (91) 93 07/03/19 09:32 78 137/93 07/03/19 09:32 78 137/93 07/03/19 09:00 Nasal Cannula 2.0 07/03/19 08:00 98.6 78 17 137/93 (108) 94 07/03/19 04:00 97.6 78 19 122/74 (90) 95 07/03/19 00:00 98.6 70 18 127/79 (95) 96 07/02/19 21:00 Nasal Cannula 2.0 07/02/19 20:00 97.4 82 20 135/98 (110) 92 07/02/19 16:00 98.0 76 18 128/78 (95) 96 07/02/19 12:00 98.6 70 18 127/79 (95) 96 07/02/19 09:27 64 122/74 07/02/19 09:27 64 122/74 07/02/19 09:00 Nasal Cannula 2.0 07/02/19 08:00 98.1 64 18 122/74 (90) 99 07/02/19 06:00 97.2 73 19 130/82 (98) 98 07/02/19 04:00 97.2 73 19 130/82 (98) 98 07/02/19 00:00 97.6 73 19 142/82 (102) 98 07/01/19 21:00 Nasal Cannula 2.0 Intake and Output 07/02/19 07/03/19 19:00 07:00 Intake Total 773 ml 43 ml Balance 773 ml 43 ml Free Water 300 ml Tube Feeding 473 ml 43 ml # Voids 2 Labs Test 07/01/19 05:50 07/02/19 05:40 07/02/19 09:40 07/03/19 05:00 White Blood Count 9.3 K/UL (4.8-10.8) 7.7 K/UL (4.8-10.8) 8.1 K/UL (4.8-10.8) Red Blood Count 4.93 M/UL (4.70-6.10) 5.01 M/UL (4.70-6.10) 4.98 M/UL (4.70-6.10) Hemoglobin 14.9 G/DL (14.2-18.0) 15.1 G/DL (14.2-18.0) 15.2 G/DL (14.2-18.0) Hematocrit 44.8 % (42.0-52.0) 45.7 % (42.0-52.0) 45.0 % (42.0-52.0) Mean Corpuscular Volume 91 FL (80-99) 91 FL (80-99) 90 FL (80-99) Mean Corpuscular Hemoglobin 30.3 PG (27.0-31.0) 30.1 PG (27.0-31.0) 30.5 PG (27.0-31.0) Mean Corpuscular Hemoglobin Concent 33.3 G/DL (32.0-36.0) 33.1 G/DL (32.0-36.0) 33.7 G/DL (32.0-36.0) Red Cell Distribution Width 13.1 % (11.6-14.8) 13.2 % (11.6-14.8) 13.2 % (11.6-14.8) Platelet Count 401 K/UL (150-450) 441 K/UL (150-450) 404 K/UL (150-450) Mean Platelet Volume 5.2 FL (6.5-10.1) 5.9 FL (6.5-10.1) 5.7 FL (6.5-10.1) Neutrophils (%) (Auto) 45.7 % (45.0-75.0) 65.5 % (45.0-75.0) 66.6 % (45.0-75.0) Lymphocytes (%) (Auto) 42.5 % (20.0-45.0) 24.1 % (20.0-45.0) 21.6 % (20.0-45.0) Monocytes (%) (Auto) 9.2 % (1.0-10.0) 8.0 % (1.0-10.0) 9.6 % (1.0-10.0) Eosinophils (%) (Auto) 1.0 % (0.0-3.0) 1.3 % (0.0-3.0) 1.3 % (0.0-3.0) Basophils (%) (Auto) 1.6 % (0.0-2.0) 1.1 % (0.0-2.0) 0.8 % (0.0-2.0) Sodium Level 141 MMOL/L (136-145) 142 MMOL/L (136-145) 140 MMOL/L (136-145) Potassium Level 5.1 MMOL/L (3.5-5.1) 4.8 MMOL/L (3.5-5.1) 4.5 MMOL/L (3.5-5.1) Chloride Level 103 MMOL/L (98-107) 102 MMOL/L (98-107) 105 MMOL/L (98-107) Carbon Dioxide Level 31 MMOL/L (21-32) 36 MMOL/L (21-32) 32 MMOL/L (21-32) Anion Gap 7 mmol/L (5-15) 4 mmol/L (5-15) 4 mmol/L (5-15) Blood Urea Nitrogen 24 mg/dL (7-18) 21 mg/dL (7-18) 21 mg/dL (7-18) Creatinine 0.8 MG/DL (0.55-1.30) 0.7 MG/DL (0.55-1.30) 0.7 MG/DL (0.55-1.30) Estimat Glomerular Filtration Rate > 60 mL/min (>60) > 60 mL/min (>60) > 60 mL/min (>60) Glucose Level 126 MG/DL (74-106) 143 MG/DL (74-106) 157 MG/DL (74-106) Calcium Level 9.4 MG/DL (8.5-10.1) 9.0 MG/DL (8.5-10.1) 8.6 MG/DL (8.5-10.1) Phosphorus Level 4.0 MG/DL (2.5-4.9) Magnesium Level 2.5 MG/DL (1.8-2.4) Total Bilirubin 0.3 MG/DL (0.2-1.0) 0.3 MG/DL (0.2-1.0) Aspartate Amino Transf (AST/SGOT) 112 U/L (15-37) 155 U/L (15-37) Alanine Aminotransferase (ALT/SGPT) 109 U/L (12-78) 183 U/L (12-78) Alkaline Phosphatase 222 U/L (46-116) 236 U/L (46-116) C-Reactive Protein, Quantitative 5.8 mg/dL (0.00-0.90) Pro-B-Type Natriuretic Peptide 263 pg/mL (0-125) Total Protein 8.8 G/DL (6.4-8.2) 8.7 G/DL (6.4-8.2) Albumin 2.2 G/DL (3.4-5.0) 2.2 G/DL (3.4-5.0) Globulin 6.6 g/dL 6.5 g/dL Albumin/Globulin Ratio 0.3 (1.0-2.7) Height (Feet): 5 Height (Inches): 2.00 Weight (Pounds): 132 Objective Physical Exam General: Awake and somewhat confused, no acute distress HEENT: NC/AT. EOMI. ++ngt Cardiovascular: RRR. S1 and S2 normal. No murmur appreciated Resp: Mild tachypnea, normal work of breathing. On 2 L nasal cannula+ Abdomen: Abdomen is soft, nondistended. Nontender Skin: Intact. No abrasions, laceration MSK: Normal tone and bulk. Moving all extremities Neuro: Awake and somewhat confused. Poor historian Geraldo Galvez MD July 03, 2019 20:52
--- NOTE | 2019-07-03 21:22 | Cardiology Progress Note ---
Assessment/Plan Assessment/Plan 1. Dyspnea due to possibly combination of COVID-19 pneumonia in addition to with acute HFpEF, continue lasix and metoprolol. LVEF is at 65%. 2. Possible [id number] myocardial infarction or elevated troponin I level could be secondary to myonecrosis due to CHF. 3. HCV infection. 4. Elevated LFTs. Subjective Subjective No cardiac events reported. On NC oxygen 2 lit/min. Objective Last 24 Hour Vital Signs Date Time Temp Pulse Resp B/P (MAP) Pulse Ox O2 Delivery O2 Flow Rate FiO2 07/03/19 16:00 98.4 82 18 112/77 (89) 93 07/03/19 12:00 97.3 80 18 124/75 (91) 93 07/03/19 09:32 78 137/93 07/03/19 09:32 78 137/93 07/03/19 09:00 Nasal Cannula 2.0 07/03/19 08:00 98.6 78 17 137/93 (108) 94 07/03/19 04:00 97.6 78 19 122/74 (90) 95 07/03/19 00:00 98.6 70 18 127/79 (95) 96 Intake and Output 07/02/19 07/03/19 19:00 07:00 Intake Total 773 ml 43 ml Balance 773 ml 43 ml Free Water 300 ml Tube Feeding 473 ml 43 ml # Voids 2 Laboratory Tests Test 07/03/19 05:00 White Blood Count 8.1 K/UL (4.8-10.8) Red Blood Count 4.98 M/UL (4.70-6.10) Hemoglobin 15.2 G/DL (14.2-18.0) Hematocrit 45.0 % (42.0-52.0) Mean Corpuscular Volume 90 FL (80-99) Mean Corpuscular Hemoglobin 30.5 PG (27.0-31.0) Mean Corpuscular Hemoglobin Concent 33.7 G/DL (32.0-36.0) Red Cell Distribution Width 13.2 % (11.6-14.8) Platelet Count 404 K/UL (150-450) Mean Platelet Volume 5.7 FL (6.5-10.1) L Neutrophils (%) (Auto) 66.6 % (45.0-75.0) Lymphocytes (%) (Auto) 21.6 % (20.0-45.0) Monocytes (%) (Auto) 9.6 % (1.0-10.0) Eosinophils (%) (Auto) 1.3 % (0.0-3.0) Basophils (%) (Auto) 0.8 % (0.0-2.0) Sodium Level 140 MMOL/L (136-145) Potassium Level 4.5 MMOL/L (3.5-5.1) Chloride Level 105 MMOL/L (98-107) Carbon Dioxide Level 32 MMOL/L (21-32) Anion Gap 4 mmol/L (5-15) L Blood Urea Nitrogen 21 mg/dL (7-18) H Creatinine 0.7 MG/DL (0.55-1.30) Estimat Glomerular Filtration Rate > 60 mL/min (>60) Glucose Level 157 MG/DL (74-106) H Calcium Level 8.6 MG/DL (8.5-10.1) Total Bilirubin 0.3 MG/DL (0.2-1.0) Aspartate Amino Transf (AST/SGOT) 155 U/L (15-37) H Alanine Aminotransferase (ALT/SGPT) 183 U/L (12-78) H Alkaline Phosphatase 236 U/L (46-116) H Total Protein 8.7 G/DL (6.4-8.2) H Albumin 2.2 G/DL (3.4-5.0) L Globulin 6.5 g/dL Albumin/Globulin Ratio 0.3 (1.0-2.7) L Objective HEENT: Atraumatic and normocephalic. Anicteric. Pupils are equal, round, and reactive to light and accommodation. Extraocular muscles intact. NECK: JVP is less than 5 cm. No carotid bruit. Carotid upstroke is 2+ bilaterally. CARDIOVASCULAR: Normal S1 and S2. Regular rate and rhythm. No murmurs, gallops, or rubs. PMI is at fourth intercostal space at midclavicular line. LUNGS: Diminished breath sounds in both bases with associated crackles. ABDOMEN: Soft, nontender, and nondistended. No hepatosplenomegaly. Positive bowel sounds. EXTREMITIES: No evidence of edema, clubbing, or cyanosis. Rolf Moreno MD July 03, 2019 21:22
--- NOTE | 2019-07-03 22:20 | General Progress Note ---
Assessment/Plan Problem List: (1) Elevated troponin ICD Codes: R79.89 - Other specified abnormal findings of blood chemistry SNOMED: 278372035, 241392603, 559442637 (2) Elevated LFTs ICD Codes: R79.89 - Other specified abnormal findings of blood chemistry SNOMED: 757344877, 026778324, 988161301 (3) Pneumonia ICD Codes: J18.9 - Pneumonia, unspecified organism SNOMED: 220848544, 675581478, 215091772 (4) Suspected 2019 novel coronavirus infection ICD Codes: R68.89 - Other general symptoms and signs SNOMED: 134616015 Status: progressing, unchanged Assessment/Plan: repeat covid positive pna weak malnutrition afebrile resp insuff poor appetite pna improved reviewed chart and labs sepsis Subjective ROS Limited/Unobtainable: Yes Allergies: Coded Allergies: No Known Allergies (Unverified , 06/15/19) Objective Last 24 Hour Vital Signs Date Time Temp Pulse Resp B/P (MAP) Pulse Ox O2 Delivery O2 Flow Rate FiO2 07/03/19 21:00 Nasal Cannula 2.0 07/03/19 20:00 98.2 82 18 130/77 (94) 93 07/03/19 16:00 98.4 82 18 112/77 (89) 93 07/03/19 12:00 97.3 80 18 124/75 (91) 93 07/03/19 09:32 78 137/93 07/03/19 09:32 78 137/93 07/03/19 09:00 Nasal Cannula 2.0 07/03/19 08:00 98.6 78 17 137/93 (108) 94 07/03/19 04:00 97.6 78 19 122/74 (90) 95 07/03/19 00:00 98.6 70 18 127/79 (95) 96 Intake and Output 07/02/19 07/03/19 19:00 07:00 Intake Total 773 ml 43 ml Balance 773 ml 43 ml Free Water 300 ml Tube Feeding 473 ml 43 ml # Voids 2 Laboratory Tests 07/03/19 05:00: White Blood Count 8.1, Red Blood Count 4.98, Hemoglobin 15.2, Hematocrit 45.0, Mean Corpuscular Volume 90, Mean Corpuscular Hemoglobin 30.5, Mean Corpuscular Hemoglobin Concent 33.7, Red Cell Distribution Width 13.2, Platelet Count 404, Mean Platelet Volume 5.7L, Neutrophils (%) (Auto) 66.6, Lymphocytes (%) (Auto) 21.6, Monocytes (%) (Auto) 9.6, Eosinophils (%) (Auto) 1.3, Basophils (%) (Auto ) 0.8, Sodium Level 140, Potassium Level 4.5, Chloride Level 105, Carbon Dioxide Level 32, Anion Gap 4L, Blood Urea Nitrogen 21H, Creatinine 0.7, Estimat Glomerular Filtration Rate > 60, Glucose Level 157H, Calcium Level 8.6, Total Bilirubin 0.3, Aspartate Amino Transf (AST/SGOT) 155H, Alanine Aminotransferase (ALT/SGPT) 183H, Alkaline Phosphatase 236H, Total Protein 8.7H , Albumin 2.2L, Globulin 6.5, Albumin/Globulin Ratio 0.3L Height (Feet): 5 Height (Inches): 2.00 Weight (Pounds): 132 Gorge Malhotra MD July 03, 2019 22:20
[2019-07-04] VITALS: BP 133/72
--- NOTE | 2019-07-04 02:44 | Progress Note ---
DATE: 07/03/2019 SUBJECTIVE: Patient is in bed, episodes of agitation. He is on the NG tube now due to poor appetite on bilateral soft restraints. MENTAL STATUS EXAMINATION: Alert, disoriented. Mood is anxious. Affect is flat. Thought process, there is a paucity of thought content. Thought content, no suicidal or homicidal ideation. Cognition is impaired. Insight and judgment is impaired. ASSESSMENT: Stable. PLAN: We will continue current medications. Karlo Santiago M.D. DR: YING JOB#: [id number] CC:
[2019-07-04 04:00] VITALS: BP 133/70
--- NOTE | 2019-07-04 07:21 | NUR ---
HAND-OFF: Report given to Cristina FRENCH.
--- NOTE | 2019-07-04 07:32 | NUR ---
NURSE NOTES: received patient in bed, asleep, on NC oxygen at 2L/min, no sign of S/S of distress. Patient has NGT, on left nares 72cm, secured with tape and receives Glucerna 1.5v @ 43cc/hr. IV access LFA saline locked. On bilateral soft wrist restraint, skin intact under wrists. Bed locked at the lowest position possible, call light within easy reach, siderails up x3. Will continue to monitor patient and follow up with the plan of care.
[2019-07-04 08:00] VITALS: BP 135/72
[2019-07-04] MEDS: Docusate 100mg cap ORAL SCH (09:00)
--- NOTE | 2019-07-04 10:10 | General Progress Note ---
Assessment/Plan Status: progressing, unchanged Assessment/Plan: 1. History of dementia. 2. CHF. 3. Hypertension. 4. BPH. 5. Constipation. 6. elevated LFTS 7. AMI 8. gallstones improving LFTS hep C positive>>> HCV RNA positive>>>patient needs out patient fu for treatment fu cardiology repeat labs in am ngt in place ngTF on COVID isolation patient needs GT speech eval appreciated. patient has passed swallow eval but refuses to eat plan PEG when off of isolation Subjective ROS Limited/Unobtainable: No Allergies: Coded Allergies: No Known Allergies (Unverified , 06/15/19) Objective Last 24 Hour Vital Signs Date Time Temp Pulse Resp B/P (MAP) Pulse Ox O2 Delivery O2 Flow Rate FiO2 07/04/19 08:00 97.5 76 20 135/72 (93) 93 07/04/19 04:00 97.3 72 18 133/70 (91) 92 07/04/19 00:00 98.1 81 18 133/72 (92) 93 07/03/19 21:00 Nasal Cannula 2.0 07/03/19 20:07 94 Nasal Cannula 2.0 28 07/03/19 20:00 98.2 82 18 130/77 (94) 93 07/03/19 16:00 98.4 82 18 112/77 (89) 93 07/03/19 12:00 97.3 80 18 124/75 (91) 93 Intake and Output 07/03/19 07/04/19 19:00 07:00 Intake Total 716 ml 673 ml Balance 716 ml 673 ml Free Water 200 ml 200 ml Tube Feeding 516 ml 473 ml # Voids 1 2 # Bowel Movements 1 1 Height (Feet): 5 Height (Inches): 2.00 Weight (Pounds): 132 General Appearance: no apparent distress EENT: normal ENT inspection Neck: supple Cardiovascular: normal rate Respiratory/Chest: decreased breath sounds Abdomen: normal bowel sounds, non tender, soft Extremities: non-tender Perry Quiroga MD July 04, 2019 10:10
[2019-07-04] MEDS: Metoprolol Succinate XL 25mg tab ORAL SCH (10:12)
[2019-07-04] MEDS: Donepezil 5mg Tab ORAL SCH (10:12)
[2019-07-04] MEDS: Aspirin Baby 81mg ORAL SCH (10:13)
[2019-07-04] MEDS: Enoxaparin 40mg Inj SUBQ SCH (10:15)
--- NOTE | 2019-07-04 10:41 | Nephrology Progress Note ---
Assessment/Plan Problem List: (1) Dehydration (2) Electrolyte imbalance (3) Elevated LFTs (4) HTN (hypertension) (5) Suspected 2019 novel coronavirus infection Assessment Electrolyte imbalance Dehydration and free water deficit Pneumonia suspected COVID-19 infection Elevated troponin Dementia Cholelithiasis and elevated liver enzymes BPH Hypertension Plan Positive for COVID-19 Normal saline 500 cc bolus as needed Watch serum potassium and electrolytes Add Norvasc Hydralazine as needed for blood pressure over 160 systolic Monitor electrolyte Continue per consultants Urine analysis ordered as none is available since admission Per orders Subjective ROS Limited/Unobtainable: No Constitutional: Reports: malaise, weakness Objective Objective Last 24 Hour Vital Signs Date Time Temp Pulse Resp B/P (MAP) Pulse Ox O2 Delivery O2 Flow Rate FiO2 07/04/19 10:12 76 135/72 07/04/19 10:12 76 135/72 07/04/19 08:00 97.5 76 20 135/72 (93) 93 07/04/19 04:00 97.3 72 18 133/70 (91) 92 07/04/19 00:00 98.1 81 18 133/72 (92) 93 07/03/19 21:00 Nasal Cannula 2.0 07/03/19 20:07 94 Nasal Cannula 2.0 28 07/03/19 20:00 98.2 82 18 130/77 (94) 93 07/03/19 16:00 98.4 82 18 112/77 (89) 93 07/03/19 12:00 97.3 80 18 124/75 (91) 93 Intake and Output 07/03/19 07/04/19 19:00 07:00 Intake Total 716 ml 716 ml Balance 716 ml 716 ml Free Water 200 ml 200 ml Tube Feeding 516 ml 516 ml # Voids 1 2 # Bowel Movements 1 1 No labs drawn today Height (Feet): 5 Height (Inches): 2.00 Weight (Pounds): 132 General Appearance: no apparent distress Cardiovascular: normal rate Respiratory/Chest: decreased breath sounds Objective no change Drew Gonzalez MD July 04, 2019 10:41
--- NOTE | 2019-07-04 11:01 | Hematology/Onc Progress Note ---
Assessment/Plan Assessment/Plan Assessment and Plan: # Leukopenia -- multiple etiologies could be related to underlying liver disease , medication-induced, infection versus viral syndrome, in this case likely due to COVID19+, and Hep C+ --> peripheral smear has been ordered and does not show significant abnormalities --> Medications have been reviewed --> Continue to monitor for improvement, trend cbc --> Hep panel and HIV have been ordered--> cw hep C++ exposure --> US abd ordered to r/o cirrhosis and hepatosplenomegaly --> none noted --> reverse isolation if ANC is <2000 --> Give neupogen if ANC <1000 --> 06/22 off abx, repeat covid pending -> HAS IMPROVED SINCE ADMISSION # Suspected 2019 novel coronavirus infection --> per id, on plaq, abx --> iso --> pulm eval recs noted --> 06/22 off abx per id # Pneumonia --> on abx --> oxygen prn --> per id # Elevated troponin ==> nstemi per cards --> diuresis prn # Elevated LFTs --> likely hep C related # Dysphagia with dec weight loss --> recommend gtube --> as per gi # Dvt ppx lovenox sq The timing of this note does not necessarily reflect the time of the patient was seen. Greatly appreciate consultation. Subjective Constitutional: Denies: no symptoms, chills, fever, malaise, weakness, other HEENT: Denies: no symptoms, eye pain, blurred vision, tearing, double vision, ear pain, ear discharge, nose pain, nose congestion, throat pain, throat swelling, mouth pain, mouth swelling, other Cardiovascular: Denies: no symptoms, chest pain, edema, irregular heart rate, lightheadedness, palpitations, syncope, other Respiratory: Denies: no symptoms, cough, shortness of breath, SOB with excertion, SOB at rest, sputum, wheezing, other Gastrointestinal/Abdominal: Denies: no symptoms, abdomen distended, abdominal pain, black stools, tarry stools, blood in stool, constipated, diarrhea, difficulty swallowing, nausea, poor appetite, poor fluid intake, rectal bleeding , vomiting, other Genitourinary: Denies: no symptoms, burning, discharge, frequency, flank pain, hematuria, incontinence, pain, urgency, other Endocrine: Denies: no symptoms, excessive sweating, flushing, intolerance to cold, intolerance to heat, increased hunger, increased thirst, increased urine, unexplained weight gain, unexplained weight loss, other Allergies: Coded Allergies: No Known Allergies (Unverified , 06/15/19) Subjective 06/20 breathing is better, on iso for covid 19, wbc improved 06/21 labs better, no bleeding, no f/c, meds noted, hcv+ 06/22 restraints, off abx, repeat covid pending, nc 06/23 no bleeding, labs noted, no night sweats, cbc reviewed, on 2l nc 06/25 remains on glucerna, have ordered for labs, no bleeding 06/26 remains on 2lnc as for covid infection, for iso 06/27 is on 2lnc, no bleeding, labs reviewed, no night sweats 06/28 labs have improved, no bleeding or chills, imaging noted 06/29 plan for peg when off iso, no bleeding, dw gi 06/30 with nc on board, ngt is running, no bleeding noted 07/02 labs are noted, no bleeding, meds reviewed 07/03 labs reviewed, seen by gi and renal, no bleeding, meds noted, with ngt Objective Objective Current Medications Medications (Trade) Dose Ordered Sig/Kaylan Route PRN Reason Start Time Stop Time Status Last Admin Dose Admin Acetaminophen (Tylenol) 500 mg Q6H PRN ORAL For Pain 06/29/19 18:15 07/16/19 00:14 07/01/19 09:11 Acetaminophen (Tylenol) 650 mg Q6H PRN ORAL For Headache 06/29/19 18:00 07/16/19 17:59 Albuterol Sulfate (Proventil MDI) 2 puff Q6H PRN INH Shortness of Breath 06/29/19 18:00 09/14/19 17:59 Amlodipine Besylate (Norvasc) 5 mg DAILY NG 06/30/19 09:00 07/23/19 11:59 07/04/19 10:12 Aspirin (ASA) 81 mg DAILY ORAL 06/30/19 09:00 07/31/19 08:59 07/04/19 10:13 Docusate Sodium (Colace) 100 mg DAILY ORAL 06/30/19 09:00 07/16/19 08:59 07/03/19 09:32 Donepezil HCl (Aricept) 5 mg DAILY ORAL 06/30/19 09:00 07/16/19 08:59 07/04/19 10:12 Enoxaparin Sodium (Lovenox) 40 mg DAILY SUBQ 06/30/19 09:00 09/14/19 08:59 07/04/19 10:15 Hydralazine HCl (Apresoline) 25 mg Q4H PRN ORAL SBP > 160mmHg 06/29/19 17:30 09/20/19 13:29 Metoprolol Succinate (Toprol XL) 25 mg DAILY ORAL 06/30/19 09:00 09/17/19 19:14 07/04/19 10:12 Mirtazapine (Remeron) 15 mg BEDTIME ORAL 06/29/19 21:00 09/19/19 20:59 07/03/19 20:43 Ondansetron HCl (Zofran) 4 mg Q6H PRN IVP Nausea & Vomiting 06/29/19 18:00 07/16/19 17:59 Polyethylene Glycol (Miralax) 17 gm BEDTIME ORAL 06/29/19 21:00 07/17/19 20:59 07/02/19 20:25 Last 24 Hour Vital Signs Date Time Temp Pulse Resp B/P (MAP) Pulse Ox O2 Delivery O2 Flow Rate FiO2 07/04/19 10:12 76 135/72 07/04/19 10:12 76 135/72 07/04/19 08:00 97.5 76 20 135/72 (93) 93 07/04/19 04:00 97.3 72 18 133/70 (91) 92 07/04/19 00:00 98.1 81 18 133/72 (92) 93 07/03/19 21:00 Nasal Cannula 2.0 07/03/19 20:07 94 Nasal Cannula 2.0 28 07/03/19 20:00 98.2 82 18 130/77 (94) 93 07/03/19 16:00 98.4 82 18 112/77 (89) 93 07/03/19 12:00 97.3 80 18 124/75 (91) 93 07/03/19 09:32 78 137/93 07/03/19 09:32 78 137/93 07/03/19 09:00 Nasal Cannula 2.0 07/03/19 08:00 98.6 78 17 137/93 (108) 94 07/03/19 04:00 97.6 78 19 122/74 (90) 95 07/03/19 00:00 98.6 70 18 127/79 (95) 96 07/02/19 21:00 Nasal Cannula 2.0 07/02/19 20:00 97.4 82 20 135/98 (110) 92 07/02/19 16:00 98.0 76 18 128/78 (95) 96 07/02/19 12:00 98.6 70 18 127/79 (95) 96 Intake and Output 07/03/19 07/04/19 19:00 07:00 Intake Total 716 ml 716 ml Balance 716 ml 716 ml Free Water 200 ml 200 ml Tube Feeding 516 ml 516 ml # Voids 1 2 # Bowel Movements 1 1 Labs Test 07/02/19 05:40 07/02/19 09:40 07/03/19 05:00 White Blood Count 7.7 K/UL (4.8-10.8) 8.1 K/UL (4.8-10.8) Red Blood Count 5.01 M/UL (4.70-6.10) 4.98 M/UL (4.70-6.10) Hemoglobin 15.1 G/DL (14.2-18.0) 15.2 G/DL (14.2-18.0) Hematocrit 45.7 % (42.0-52.0) 45.0 % (42.0-52.0) Mean Corpuscular Volume 91 FL (80-99) 90 FL (80-99) Mean Corpuscular Hemoglobin 30.1 PG (27.0-31.0) 30.5 PG (27.0-31.0) Mean Corpuscular Hemoglobin Concent 33.1 G/DL (32.0-36.0) 33.7 G/DL (32.0-36.0) Red Cell Distribution Width 13.2 % (11.6-14.8) 13.2 % (11.6-14.8) Platelet Count 441 K/UL (150-450) 404 K/UL (150-450) Mean Platelet Volume 5.9 FL (6.5-10.1) 5.7 FL (6.5-10.1) Neutrophils (%) (Auto) 65.5 % (45.0-75.0) 66.6 % (45.0-75.0) Lymphocytes (%) (Auto) 24.1 % (20.0-45.0) 21.6 % (20.0-45.0) Monocytes (%) (Auto) 8.0 % (1.0-10.0) 9.6 % (1.0-10.0) Eosinophils (%) (Auto) 1.3 % (0.0-3.0) 1.3 % (0.0-3.0) Basophils (%) (Auto) 1.1 % (0.0-2.0) 0.8 % (0.0-2.0) Sodium Level 142 MMOL/L (136-145) 140 MMOL/L (136-145) Potassium Level 4.8 MMOL/L (3.5-5.1) 4.5 MMOL/L (3.5-5.1) Chloride Level 102 MMOL/L (98-107) 105 MMOL/L (98-107) Carbon Dioxide Level 36 MMOL/L (21-32) 32 MMOL/L (21-32) Anion Gap 4 mmol/L (5-15) 4 mmol/L (5-15) Blood Urea Nitrogen 21 mg/dL (7-18) 21 mg/dL (7-18) Creatinine 0.7 MG/DL (0.55-1.30) 0.7 MG/DL (0.55-1.30) Estimat Glomerular Filtration Rate > 60 mL/min (>60) > 60 mL/min (>60) Glucose Level 143 MG/DL (74-106) 157 MG/DL (74-106) Calcium Level 9.0 MG/DL (8.5-10.1) 8.6 MG/DL (8.5-10.1) Total Bilirubin 0.3 MG/DL (0.2-1.0) Aspartate Amino Transf (AST/SGOT) 155 U/L (15-37) Alanine Aminotransferase (ALT/SGPT) 183 U/L (12-78) Alkaline Phosphatase 236 U/L (46-116) Total Protein 8.7 G/DL (6.4-8.2) Albumin 2.2 G/DL (3.4-5.0) Globulin 6.5 g/dL Albumin/Globulin Ratio 0.3 (1.0-2.7) Height (Feet): 5 Height (Inches): 2.00 Weight (Pounds): 132 Objective Physical Exam General: Awake and somewhat confused, no acute distress HEENT: NC/AT. EOMI. ++ngt Cardiovascular: RRR. S1 and S2 normal. No murmur appreciated Resp: Mild tachypnea, normal work of breathing. On 2 L nasal cannula+ Abdomen: Abdomen is soft, nondistended. Nontender Skin: Intact. No abrasions, laceration MSK: Normal tone and bulk. Moving all extremities Neuro: Awake and somewhat confused. Poor historian Geraldo Galvez MD July 04, 2019 11:01
[2019-07-04 12:00] VITALS: BP 131/68
--- NOTE | 2019-07-04 12:12 | NUR ---
CASE MANAGEMENT:REVIEW SI;COVID-19 PNEUMONIA - REPEAT SWAB 06/28 POSITIVE ELEVATED LFT. HEP C. CHOLELITHIASIS. 98.2 81 20 135/72 92% 2L NC fio2 @ 28% BUN 21 AST 155 ALT 183 ALK PHOS 236 ALB 2.2 IS;NORVASC NGT QD ASA NGT QD LOVENOX SUBQ QD TOPROL XL NGT QD PROVENTIL INH Q6 HRS PRN NG TUBE FEEDINGS MED SURG STATUS DCP;FORM GADIEL GAN PLAN;PEG PLACEMENT WHEN OFF COVID-19 ISOLATION
--- NOTE | 2019-07-04 13:22 | Infectious Diseases Prog Note ---
Assessment/Plan Assessment/Plan IMPRESSION: COIVD19 Pneumonia, Positive on : 06/14, 06/20, 06/22, 06/25, 06/28 Cholelithiasis and elevated transaminase level, acidosis, dementia with behavioral problem. Dysphagia Hepatitis C RECOMMENDATION: Will f/u COVID19 test Subjective ROS Limited/Unobtainable: Yes Constitutional: Denies: fever Allergies: Coded Allergies: No Known Allergies (Unverified , 06/15/19) Objective Vital Signs Last 24 Hour Vital Signs Date Time Temp Pulse Resp B/P (MAP) Pulse Ox O2 Delivery O2 Flow Rate FiO2 07/04/19 12:00 97.7 79 19 131/68 (89) 95 07/04/19 10:12 76 135/72 07/04/19 10:12 76 135/72 07/04/19 09:00 Nasal Cannula 2.0 07/04/19 08:00 97.5 76 20 135/72 (93) 93 07/04/19 04:00 97.3 72 18 133/70 (91) 92 07/04/19 00:00 98.1 81 18 133/72 (92) 93 07/03/19 21:00 Nasal Cannula 2.0 07/03/19 20:07 94 Nasal Cannula 2.0 28 07/03/19 20:00 98.2 82 18 130/77 (94) 93 07/03/19 16:00 98.4 82 18 112/77 (89) 93 Height (Feet): 5 Height (Inches): 2.00 Weight (Pounds): 132 General Appearance: no acute distress HEENT: mucous membranes moist Respiratory/Chest: lungs clear Cardiovascular: normal rate Abdomen: soft, non tender Extremities: no edema Neurologic/Psychiatric: disoriented, other - mostly sleeping Current Medications Medications (Trade) Dose Ordered Sig/Kaylan Route PRN Reason Start Time Stop Time Status Last Admin Dose Admin Acetaminophen (Tylenol) 500 mg Q6H PRN ORAL For Pain 06/29/19 18:15 07/16/19 00:14 07/01/19 09:11 Acetaminophen (Tylenol) 650 mg Q6H PRN ORAL For Headache 06/29/19 18:00 07/16/19 17:59 Albuterol Sulfate (Proventil MDI) 2 puff Q6H PRN INH Shortness of Breath 06/29/19 18:00 09/14/19 17:59 Amlodipine Besylate (Norvasc) 5 mg DAILY NG 06/30/19 09:00 07/23/19 11:59 07/04/19 10:12 Aspirin (ASA) 81 mg DAILY ORAL 06/30/19 09:00 07/31/19 08:59 07/04/19 10:13 Docusate Sodium (Colace) 100 mg DAILY ORAL 06/30/19 09:00 07/16/19 08:59 07/03/19 09:32 Donepezil HCl (Aricept) 5 mg DAILY ORAL 06/30/19 09:00 07/16/19 08:59 07/04/19 10:12 Enoxaparin Sodium (Lovenox) 40 mg DAILY SUBQ 06/30/19 09:00 09/14/19 08:59 07/04/19 10:15 Hydralazine HCl (Apresoline) 25 mg Q4H PRN ORAL SBP > 160mmHg 06/29/19 17:30 09/20/19 13:29 Metoprolol Succinate (Toprol XL) 25 mg DAILY ORAL 06/30/19 09:00 09/17/19 19:14 07/04/19 10:12 Mirtazapine (Remeron) 15 mg BEDTIME ORAL 06/29/19 21:00 09/19/19 20:59 07/03/19 20:43 Ondansetron HCl (Zofran) 4 mg Q6H PRN IVP Nausea & Vomiting 06/29/19 18:00 07/16/19 17:59 Polyethylene Glycol (Miralax) 17 gm BEDTIME ORAL 06/29/19 21:00 07/17/19 20:59 07/02/19 20:25 Benigno Betancourt MD July 04, 2019 13:22
[2019-07-04 16:00] VITALS: BP 129/74
--- NOTE | 2019-07-04 17:22 | General Progress Note ---
Assessment/Plan Problem List: (1) Elevated troponin ICD Codes: R79.89 - Other specified abnormal findings of blood chemistry SNOMED: 477063182, 427768172, 946218510 (2) Elevated LFTs ICD Codes: R79.89 - Other specified abnormal findings of blood chemistry SNOMED: 477924857, 176270986, 751708990 (3) Pneumonia ICD Codes: J18.9 - Pneumonia, unspecified organism SNOMED: 718130140, 816541407, 494566660 (4) Suspected 2019 novel coronavirus infection ICD Codes: R68.89 - Other general symptoms and signs SNOMED: 991733182 Status: progressing, unchanged Assessment/Plan: repeat covid positive pna poor prognisis weak malnutrtition resp insuff poor appetite pna improved reviewed chart and labs sepsis Subjective ROS Limited/Unobtainable: Yes Allergies: Coded Allergies: No Known Allergies (Unverified , 06/15/19) Objective Last 24 Hour Vital Signs Date Time Temp Pulse Resp B/P (MAP) Pulse Ox O2 Delivery O2 Flow Rate FiO2 07/04/19 12:00 97.7 79 19 131/68 (89) 95 07/04/19 10:12 76 135/72 07/04/19 10:12 76 135/72 07/04/19 09:00 Nasal Cannula 2.0 07/04/19 08:00 97.5 76 20 135/72 (93) 93 07/04/19 04:00 97.3 72 18 133/70 (91) 92 07/04/19 00:00 98.1 81 18 133/72 (92) 93 07/03/19 21:00 Nasal Cannula 2.0 07/03/19 20:07 94 Nasal Cannula 2.0 28 07/03/19 20:00 98.2 82 18 130/77 (94) 93 Intake and Output 07/03/19 07/04/19 19:00 07:00 Intake Total 716 ml 716 ml Balance 716 ml 716 ml Free Water 200 ml 200 ml Tube Feeding 516 ml 516 ml # Voids 1 2 # Bowel Movements 1 1 Height (Feet): 5 Height (Inches): 2.00 Weight (Pounds): 132 Gorge Malhotra MD July 04, 2019 17:22
--- NOTE | 2019-07-04 19:30 | NUR ---
HAND-OFF: Report given to MANOLO Larkin.
--- NOTE | 2019-07-04 19:30 | NUR ---
NURSE NOTES: Patient asleep in bed, no signs of pain, on O2 at 2LPM via nasal cannula. With NGT connected to feeding bottle. With bilateral soft wrist restraints due to pulling out devices. Bed in lowest, lock engaged and alarm on. Will continue to monitor.
[2019-07-04 20:00] VITALS: BP 130/71
[2019-07-04] MEDS: Miralax 17gm pkt ORAL SCH (20:19)
--- NOTE | 2019-07-04 22:23 | Pulmonology Progress Note ---
Assessment/Plan Assessment/Plan Pulmonary Progress Note HPI: Patient is a 88-year-old male history of Dementia, Congestive Heart Failure , admitted from assisted facility with Pneumonia, COVID 19 positive, noted to have fever and shortness of breath, chest congestion and tightness for 2 days. Noted to be confused in the ED. Had been febrile with low-grade temperatures for the past 2 days. No vomiting or diarrhea or abdominal pain. Stable O2 requirements - 2L NC, stable Pulmonary Status clinically, Covid isolation Awaiting G tube Seen earlier PMH: Dementia, Congestive Heart Failure Social Hx: Longterm Resident FHx: NC Allergies: No Known Allergies All Other Systems: limited - AMS Physical Exam Vital signs noted General: Awake and somewhat confused, no acute distress HEENT: NC/AT. EOMI. Cardiovascular: RRR. S1 and S2 normal. No murmur appreciated Resp: Mild tachypnea, normal work of breathing. On 2 L nasal cannula. No cough Abdomen: Abdomen is soft, nondistended. Nontender Skin: Intact. No abrasions, laceration or rash noted MSK: Normal tone and bulk. Moving all extremities. No obvious deformity. Neuro: Awake and somewhat confused. Poor historian. 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 Isolation for suspected COVID-19 infection G tube pending Laboratory Tests noted EKG Rate: normal Rhythm: NSR ST Segments: no acute changes Sinus rhythm, left axis deviation. Occasional PACs. T wave inversions, no ST segment changes Chest X-Ray: Consolidations in the left lower lobe may represent an early pneumonia. No effusion. Current CXR slight worsening of infiltrates . Subjective ROS Limited/Unobtainable: No Constitutional: Denies: fever Respiratory: Reports: shortness of breath Allergies: Coded Allergies: No Known Allergies (Unverified , 06/15/19) All Systems: reviewed and negative except above Objective Last 24 Hour Vital Signs Date Time Temp Pulse Resp B/P (MAP) Pulse Ox O2 Delivery O2 Flow Rate FiO2 07/04/19 21:00 Nasal Cannula 2.0 07/04/19 20:00 97.6 78 20 130/71 (90) 96 07/04/19 16:00 97.9 80 20 129/74 (92) 96 07/04/19 12:00 97.7 79 19 131/68 (89) 95 07/04/19 10:12 76 135/72 07/04/19 10:12 76 135/72 07/04/19 09:00 Nasal Cannula 2.0 07/04/19 08:00 97.5 76 20 135/72 (93) 93 07/04/19 04:00 97.3 72 18 133/70 (91) 92 07/04/19 00:00 98.1 81 18 133/72 (92) 93 Intake and Output 07/03/19 07/04/19 19:00 07:00 Intake Total 716 ml 716 ml Balance 716 ml 716 ml Free Water 200 ml 200 ml Tube Feeding 516 ml 516 ml # Voids 1 2 # Bowel Movements 1 1 General Appearance: no acute distress HEENT: mucous membranes moist Abdomen: soft, non tender Extremities: no edema Neurologic/Psychiatric: disoriented, other - mostly sleeping Current Medications Medications (Trade) Dose Ordered Sig/Kaylan Route PRN Reason Start Time Stop Time Status Last Admin Dose Admin Acetaminophen (Tylenol) 500 mg Q6H PRN ORAL For Pain 06/29/19 18:15 07/16/19 00:14 07/01/19 09:11 Acetaminophen (Tylenol) 650 mg Q6H PRN ORAL For Headache 06/29/19 18:00 07/16/19 17:59 Albuterol Sulfate (Proventil MDI) 2 puff Q6H PRN INH Shortness of Breath 06/29/19 18:00 09/14/19 17:59 Amlodipine Besylate (Norvasc) 5 mg DAILY NG 06/30/19 09:00 07/23/19 11:59 07/04/19 10:12 Aspirin (ASA) 81 mg DAILY ORAL 06/30/19 09:00 07/31/19 08:59 07/04/19 10:13 Docusate Sodium (Colace) 100 mg DAILY ORAL 06/30/19 09:00 07/16/19 08:59 07/03/19 09:32 Donepezil HCl (Aricept) 5 mg DAILY ORAL 06/30/19 09:00 07/16/19 08:59 07/04/19 10:12 Enoxaparin Sodium (Lovenox) 40 mg DAILY SUBQ 06/30/19 09:00 09/14/19 08:59 07/04/19 10:15 Hydralazine HCl (Apresoline) 25 mg Q4H PRN ORAL SBP > 160mmHg 06/29/19 17:30 09/20/19 13:29 Metoprolol Succinate (Toprol XL) 25 mg DAILY ORAL 06/30/19 09:00 09/17/19 19:14 07/04/19 10:12 Mirtazapine (Remeron) 15 mg BEDTIME ORAL 06/29/19 21:00 09/19/19 20:59 07/04/19 20:19 Ondansetron HCl (Zofran) 4 mg Q6H PRN IVP Nausea & Vomiting 06/29/19 18:00 07/16/19 17:59 Polyethylene Glycol (Miralax) 17 gm BEDTIME ORAL 06/29/19 21:00 07/17/19 20:59 07/02/19 20:25 Andrew Diaz MD July 04, 2019 22:23
--- NOTE | 2019-07-04 23:57 | Cardiology Progress Note ---
Assessment/Plan Assessment/Plan 1. Dyspnea due to possibly combination of COVID-19 pneumonia in addition to with acute HFpEF, continue lasix and metoprolol. LVEF is at 65%. 2. Possible [id number] myocardial infarction or elevated troponin I level could be secondary to myonecrosis due to CHF. 3. HCV infection. 4. Elevated LFTs. Subjective Subjective No cardiac events reported. On NC oxygen 2 lit/min. Objective Last 24 Hour Vital Signs Date Time Temp Pulse Resp B/P (MAP) Pulse Ox O2 Delivery O2 Flow Rate FiO2 07/04/19 21:00 Nasal Cannula 2.0 07/04/19 20:00 97.6 78 20 130/71 (90) 96 07/04/19 16:00 97.9 80 20 129/74 (92) 96 07/04/19 12:00 97.7 79 19 131/68 (89) 95 07/04/19 10:12 76 135/72 07/04/19 10:12 76 135/72 07/04/19 09:00 Nasal Cannula 2.0 07/04/19 08:00 97.5 76 20 135/72 (93) 93 07/04/19 04:00 97.3 72 18 133/70 (91) 92 07/04/19 00:00 98.1 81 18 133/72 (92) 93 Intake and Output 07/03/19 07/04/19 19:00 07:00 Intake Total 716 ml 716 ml Balance 716 ml 716 ml Free Water 200 ml 200 ml Tube Feeding 516 ml 516 ml # Voids 1 2 # Bowel Movements 1 1 Objective HEENT: Atraumatic and normocephalic. Anicteric. Pupils are equal, round, and reactive to light and accommodation. Extraocular muscles intact. NECK: JVP is less than 5 cm. No carotid bruit. Carotid upstroke is 2+ bilaterally. CARDIOVASCULAR: Normal S1 and S2. Regular rate and rhythm. No murmurs, gallops, or rubs. PMI is at fourth intercostal space at midclavicular line. LUNGS: Diminished breath sounds in both bases with associated crackles. ABDOMEN: Soft, nontender, and nondistended. No hepatosplenomegaly. Positive bowel sounds. EXTREMITIES: No evidence of edema, clubbing, or cyanosis. Rolf Moreno MD July 04, 2019 23:57
[2019-07-05] VITALS: BP 129/73
--- NOTE | 2019-07-05 03:44 | Progress Note ---
DATE: 07/04/2019 SUBJECTIVE: The patient is on soft restraints. Still has episodes of agitation, attempting to come out of bed, confused, not able to be engaged. he still needs to be on restraints. MENTAL STATUS EXAMINATION: The patient is alert, confused and disoriented. Mood is agitated. Affect is flat. Thought process is concrete. Thought content, no suicidal or homicidal ideation. Cognition is impaired. Insight and judgment is impaired. ASSESSMENT: Dementia with behavior disturbance. PLAN: 1. 15 mg at night. 2. We will DC the benazepril. 3. Remove the soft restraint. 4. Discussed with the nurse. Karlo Santiago M.D. DR: Kb JOB#: [id number] CC:
[2019-07-05 04:00] VITALS: BP 129/74
--- NOTE | 2019-07-05 07:08 | Hematology/Onc Progress Note ---
Assessment/Plan Assessment/Plan Assessment and Plan: # Leukopenia -- multiple etiologies could be related to underlying liver disease , medication-induced, infection versus viral syndrome, in this case likely due to COVID19+, and Hep C+ --> peripheral smear has been ordered and does not show significant abnormalities --> Medications have been reviewed --> Continue to monitor for improvement, trend cbc --> Hep panel and HIV have been ordered--> cw hep C++ exposure --> US abd ordered to r/o cirrhosis and hepatosplenomegaly --> none noted --> reverse isolation if ANC is <2000 --> Give neupogen if ANC <1000 --> 06/22 off abx, repeat covid pending -> HAS IMPROVED SINCE ADMISSION # Suspected 2019 novel coronavirus infection --> per id, on plaq, abx --> iso --> pulm eval recs noted --> 06/22 off abx per id # Pneumonia --> on abx --> oxygen prn --> per id # Elevated troponin ==> nstemi per cards --> diuresis prn # Elevated LFTs --> likely hep C related # Hep c --> vl and outpatient gi # Dysphagia with dec weight loss --> recommend gtube --> as per gi # Dvt ppx lovenox sq The timing of this note does not necessarily reflect the time of the patient was seen. Greatly appreciate consultation. Subjective Constitutional: Denies: no symptoms, chills, fever, malaise, weakness, other HEENT: Denies: no symptoms, eye pain, blurred vision, tearing, double vision, ear pain, ear discharge, nose pain, nose congestion, throat pain, throat swelling, mouth pain, mouth swelling, other Cardiovascular: Denies: no symptoms, chest pain, edema, irregular heart rate, lightheadedness, palpitations, syncope, other Respiratory: Denies: no symptoms, cough, shortness of breath, SOB with excertion, SOB at rest, sputum, wheezing, other Genitourinary: Denies: no symptoms, burning, discharge, frequency, flank pain, hematuria, incontinence, pain, urgency, other Neurologic/Psychiatric: Denies: no symptoms, anxiety, depressed, emotional problems, headache, numbness, paresthesia, pre-existing deficit, seizure, tingling, tremors, weakness, other Endocrine: Denies: no symptoms, excessive sweating, flushing, intolerance to cold, intolerance to heat, increased hunger, increased thirst, increased urine, unexplained weight gain, unexplained weight loss, other Allergies: Coded Allergies: No Known Allergies (Unverified , 06/15/19) Subjective 06/20 breathing is better, on iso for covid 19, wbc improved 06/21 labs better, no bleeding, no f/c, meds noted, hcv+ 06/22 restraints, off abx, repeat covid pending, nc 06/23 no bleeding, labs noted, no night sweats, cbc reviewed, on 2l nc 06/25 remains on glucerna, have ordered for labs, no bleeding 06/26 remains on 2lnc as for covid infection, for iso 06/27 is on 2lnc, no bleeding, labs reviewed, no night sweats 06/28 labs have improved, no bleeding or chills, imaging noted 06/29 plan for peg when off iso, no bleeding, dw gi 06/30 with nc on board, ngt is running, no bleeding noted 07/02 labs are noted, no bleeding, meds reviewed 07/03 labs reviewed, seen by gi and renal, no bleeding, meds noted, with ngt 07/04 nc functional, with ngt in place, no night sweats, meds noted Objective Objective Current Medications Medications (Trade) Dose Ordered Sig/Kaylan Route PRN Reason Start Time Stop Time Status Last Admin Dose Admin Acetaminophen (Tylenol) 500 mg Q6H PRN ORAL For Pain 06/29/19 18:15 07/16/19 00:14 07/01/19 09:11 Acetaminophen (Tylenol) 650 mg Q6H PRN ORAL For Headache 06/29/19 18:00 07/16/19 17:59 Albuterol Sulfate (Proventil MDI) 2 puff Q6H PRN INH Shortness of Breath 06/29/19 18:00 09/14/19 17:59 Amlodipine Besylate (Norvasc) 5 mg DAILY NG 06/30/19 09:00 07/23/19 11:59 07/04/19 10:12 Aspirin (ASA) 81 mg DAILY ORAL 06/30/19 09:00 07/31/19 08:59 07/04/19 10:13 Docusate Sodium (Colace) 100 mg DAILY ORAL 06/30/19 09:00 07/16/19 08:59 07/03/19 09:32 Enoxaparin Sodium (Lovenox) 40 mg DAILY SUBQ 06/30/19 09:00 09/14/19 08:59 07/04/19 10:15 Hydralazine HCl (Apresoline) 25 mg Q4H PRN ORAL SBP > 160mmHg 06/29/19 17:30 09/20/19 13:29 Metoprolol Succinate (Toprol XL) 25 mg DAILY ORAL 06/30/19 09:00 09/17/19 19:14 07/04/19 10:12 Mirtazapine (Remeron) 15 mg BEDTIME ORAL 06/29/19 21:00 09/19/19 20:59 07/04/19 20:19 Ondansetron HCl (Zofran) 4 mg Q6H PRN IVP Nausea & Vomiting 06/29/19 18:00 07/16/19 17:59 Polyethylene Glycol (Miralax) 17 gm BEDTIME ORAL 06/29/19 21:00 07/17/19 20:59 07/02/19 20:25 Last 24 Hour Vital Signs Date Time Temp Pulse Resp B/P (MAP) Pulse Ox O2 Delivery O2 Flow Rate FiO2 07/05/19 04:02 97 Nasal Cannula 2.0 28 07/05/19 04:00 98.2 82 20 129/74 (92) 95 07/05/19 00:00 97.4 70 20 129/73 (91) 95 07/04/19 21:00 Nasal Cannula 2.0 07/04/19 20:00 97.6 78 20 130/71 (90) 96 07/04/19 16:00 97.9 80 20 129/74 (92) 96 07/04/19 12:00 97.7 79 19 131/68 (89) 95 07/04/19 10:12 76 135/72 07/04/19 10:12 76 135/72 07/04/19 09:00 Nasal Cannula 2.0 07/04/19 08:00 97.5 76 20 135/72 (93) 93 07/04/19 04:00 97.3 72 18 133/70 (91) 92 07/04/19 00:00 98.1 81 18 133/72 (92) 93 07/03/19 21:00 Nasal Cannula 2.0 07/03/19 20:07 94 Nasal Cannula 2.0 28 07/03/19 20:00 98.2 82 18 130/77 (94) 93 07/03/19 16:00 98.4 82 18 112/77 (89) 93 07/03/19 12:00 97.3 80 18 124/75 (91) 93 07/03/19 09:32 78 137/93 07/03/19 09:32 78 137/93 07/03/19 09:00 Nasal Cannula 2.0 07/03/19 08:00 98.6 78 17 137/93 (108) 94 Intake and Output 07/04/19 07/05/19 19:00 07:00 Intake Total 673 ml Balance 673 ml Free Water 200 ml Tube Feeding 473 ml # Voids 2 2 Labs Test 07/02/19 09:40 07/03/19 05:00 Sodium Level 142 MMOL/L (136-145) 140 MMOL/L (136-145) Potassium Level 4.8 MMOL/L (3.5-5.1) 4.5 MMOL/L (3.5-5.1) Chloride Level 102 MMOL/L (98-107) 105 MMOL/L (98-107) Carbon Dioxide Level 36 MMOL/L (21-32) 32 MMOL/L (21-32) Anion Gap 4 mmol/L (5-15) 4 mmol/L (5-15) Blood Urea Nitrogen 21 mg/dL (7-18) 21 mg/dL (7-18) Creatinine 0.7 MG/DL (0.55-1.30) 0.7 MG/DL (0.55-1.30) Estimat Glomerular Filtration Rate > 60 mL/min (>60) > 60 mL/min (>60) Glucose Level 143 MG/DL (74-106) 157 MG/DL (74-106) Calcium Level 9.0 MG/DL (8.5-10.1) 8.6 MG/DL (8.5-10.1) White Blood Count 8.1 K/UL (4.8-10.8) Red Blood Count 4.98 M/UL (4.70-6.10) Hemoglobin 15.2 G/DL (14.2-18.0) Hematocrit 45.0 % (42.0-52.0) Mean Corpuscular Volume 90 FL (80-99) Mean Corpuscular Hemoglobin 30.5 PG (27.0-31.0) Mean Corpuscular Hemoglobin Concent 33.7 G/DL (32.0-36.0) Red Cell Distribution Width 13.2 % (11.6-14.8) Platelet Count 404 K/UL (150-450) Mean Platelet Volume 5.7 FL (6.5-10.1) Neutrophils (%) (Auto) 66.6 % (45.0-75.0) Lymphocytes (%) (Auto) 21.6 % (20.0-45.0) Monocytes (%) (Auto) 9.6 % (1.0-10.0) Eosinophils (%) (Auto) 1.3 % (0.0-3.0) Basophils (%) (Auto) 0.8 % (0.0-2.0) Total Bilirubin 0.3 MG/DL (0.2-1.0) Aspartate Amino Transf (AST/SGOT) 155 U/L (15-37) Alanine Aminotransferase (ALT/SGPT) 183 U/L (12-78) Alkaline Phosphatase 236 U/L (46-116) Total Protein 8.7 G/DL (6.4-8.2) Albumin 2.2 G/DL (3.4-5.0) Globulin 6.5 g/dL Albumin/Globulin Ratio 0.3 (1.0-2.7) Height (Feet): 5 Height (Inches): 2.00 Weight (Pounds): 132 Objective Physical Exam General: Awake + confused, no acute distress HEENT: NC/AT. EOMI. ++ngt Cardiovascular: RRR. S1 and S2 normal. No murmur appreciated Resp: Mild tachypnea, normal work of breathing. On 2 L nasal cannula+ Abdomen: Abdomen is soft, nondistended. Nt Skin: Intact. No abrasions, laceration MSK: Normal tone and bulk. Moving all extremities Neuro: Awake and somewhat confused. Poor historian Geraldo Galvez MD July 05, 2019 07:08
--- NOTE | 2019-07-05 07:30 | NUR ---
NURSE NOTES: Received patient lying asleep in hospital bed in semi-garcia position. Patient has NGT in place on L nostril measuring 70 cm in depth. NGT feeding on hold for replacement. VSS. Bilateral SCDs in place on BLE. No s/s of pain or discomfort at this time. Soft restraints on B wrists for safety and pulling of IV/NGT. IV on L hand. No s/s of infiltration of IV site, flushed with 10 cc NS with no resistance. No s/s of infection. Patient is incontinent x 2. No BM or urine noted on pad at this time. Bed is in lowest position and locked. Bed alarm is on. Will continue POC.
[2019-07-05 08:00] VITALS: BP 135/73
[2019-07-05] MEDS: Docusate 100mg cap ORAL SCH (08:50)
[2019-07-05] MEDS: Metoprolol Succinate XL 25mg tab ORAL SCH (08:51)
[2019-07-05] MEDS: Aspirin Baby 81mg ORAL SCH (08:51)
[2019-07-05] MEDS: Enoxaparin 40mg Inj SUBQ SCH (08:52)
--- NOTE | 2019-07-05 09:37 | NUR ---
RD ASSESSMENT & RECOMMENDATIONS SEE CARE ACTIVITY FOR COMPLETE ASSESSMENT DAILY ESTIMATED NEEDS: Needs based on Cardiac, pulmonary 61.2kg 25-30 kcals/kg 2193-1593 total kcals 1-1.5 g protein/kg 61-92 g total protein 20-25 mL/kg 6658-3898 total fluid mLs NUTRITION DIAGNOSIS: Swallowing and chewing difficulty r/t dysphagia as evidenced by pt on liquify puree texture diet w/ NTL, variable PO intake and 1:1 feeds, now on NGT feeds + oral grat. ENTERAL NUTRITION RECOMMENDATIONS: Glucerna 1.5 @43ml/hr x24 hrs to provide 1032ml, 1548 kcal, 85g pro, 783ml free H2O - Maintain current TF - Flush per MD, HOB over 30 degrees. If K labs continue to trend up rec TF change to Nepro w/ goal of 37ml/hr for 888ml, 1598 kcal, 72g pro, 646ml free H2O and 941mg potassium per day. ADDITIONAL RECOMMENDATIONS: 1) Obtain a calibrated bed scale wt and UPDATED EMR, Updated wt of 59.165kg is more c/w initial wt 2) Monitor lytes (K now wnl), need for renal TF 3) TF recs as above 4) rec NISS w/ TF's for glycemic control 5) Wound eval: BL heel partial thickness wounds per EMR documentation(06/24) 60 Oral grat as tolerated per RENAL MEDICINE PHYSICIAN. .
--- NOTE | 2019-07-05 10:09 | NUR ---
NURSE NOTES: Patient's NGT unable to flush. Unable to check placement by attempting to administer air into NGT. Patient's NGT has become clogged. Notified Dr. Quiroga. Received order to replace NGT and KUB for placement confirmation.
--- NOTE | 2019-07-05 11:07 | General Progress Note ---
Assessment/Plan Status: progressing, unchanged Assessment/Plan: 1. History of dementia. 2. CHF. 3. Hypertension. 4. BPH. 5. Constipation. 6. elevated LFTS 7. AMI 8. gallstones improving LFTS hep C positive>>> HCV RNA positive>>>patient needs out patient fu for treatment fu cardiology repeat labs in am clogged NGT>> plan try to replace and resume TF if in propre place on COVID isolation patient needs GT speech eval appreciated. patient has passed swallow eval but refuses to eat plan PEG when off of isolation Subjective ROS Limited/Unobtainable: No Allergies: Coded Allergies: No Known Allergies (Unverified , 06/15/19) Objective Last 24 Hour Vital Signs Date Time Temp Pulse Resp B/P (MAP) Pulse Ox O2 Delivery O2 Flow Rate FiO2 07/05/19 09:00 Nasal Cannula 2.0 07/05/19 08:51 79 135/73 07/05/19 08:51 79 135/73 07/05/19 08:00 98.1 79 18 135/73 (93) 97 07/05/19 04:02 97 Nasal Cannula 2.0 28 07/05/19 04:00 98.2 82 20 129/74 (92) 95 07/05/19 00:00 97.4 70 20 129/73 (91) 95 07/04/19 21:00 Nasal Cannula 2.0 07/04/19 20:00 97.6 78 20 130/71 (90) 96 07/04/19 16:00 97.9 80 20 129/74 (92) 96 07/04/19 12:00 97.7 79 19 131/68 (89) 95 Intake and Output 07/04/19 07/05/19 19:00 07:00 Intake Total 673 ml Balance 673 ml Free Water 200 ml Tube Feeding 473 ml # Voids 2 2 Height (Feet): 5 Height (Inches): 2.00 Weight (Pounds): 132 General Appearance: no apparent distress EENT: normal ENT inspection Neck: supple Cardiovascular: normal rate Respiratory/Chest: decreased breath sounds Abdomen: normal bowel sounds, non tender, soft Extremities: non-tender Perry Quiroga MD July 05, 2019 11:07
--- NOTE | 2019-07-05 11:20 | NUR ---
NURSE NOTES: Re-inserted NGT with 16fr to right nostril without any difficulties, no bleeding, or SOB. Patient is stable and looks comfort. Radiology was inform for KUB and waiting for KUB.
--- NOTE | 2019-07-05 11:21 | NUR ---
NURSE NOTES: 70cm of NGT is in.
[2019-07-05 12:00] VITALS: BP 129/68
--- NOTE | 2019-07-05 12:36 | NUR ---
RADIOLOGY DEPT, ABDOMEN X-RAY FOR NGT PLCAL COMPLETED.-P.DYE
--- NOTE | 2019-07-05 13:56 | Nephrology Progress Note ---
Assessment/Plan Problem List: (1) Dehydration (2) Electrolyte imbalance (3) Elevated LFTs (4) HTN (hypertension) (5) Suspected 2019 novel coronavirus infection Assessment Electrolyte imbalance Dehydration and free water deficit Pneumonia suspected COVID-19 infection Elevated troponin Dementia Cholelithiasis and elevated liver enzymes BPH Hypertension Plan Positive for COVID-19 Normal saline 500 cc bolus as needed Watch serum potassium and electrolytes Add Norvasc Hydralazine as needed for blood pressure over 160 systolic Monitor electrolyte Continue per consultants Urine analysis ordered as none is available since admission Per orders Subjective ROS Limited/Unobtainable: No Constitutional: Reports: malaise, weakness Objective Objective Last 24 Hour Vital Signs Date Time Temp Pulse Resp B/P (MAP) Pulse Ox O2 Delivery O2 Flow Rate FiO2 07/05/19 12:00 97.8 76 20 129/68 (88) 96 07/05/19 09:00 Nasal Cannula 2.0 07/05/19 08:51 79 135/73 07/05/19 08:51 79 135/73 07/05/19 08:00 98.1 79 18 135/73 (93) 97 07/05/19 04:02 97 Nasal Cannula 2.0 28 07/05/19 04:00 98.2 82 20 129/74 (92) 95 07/05/19 00:00 97.4 70 20 129/73 (91) 95 07/04/19 21:00 Nasal Cannula 2.0 07/04/19 20:00 97.6 78 20 130/71 (90) 96 07/04/19 16:00 97.9 80 20 129/74 (92) 96 Intake and Output 07/04/19 07/05/19 19:00 07:00 Intake Total 673 ml Balance 673 ml Free Water 200 ml Tube Feeding 473 ml # Voids 2 2 Height (Feet): 5 Height (Inches): 2.00 Weight (Pounds): 132 General Appearance: no apparent distress EENT: other - NG tube Cardiovascular: tachycardia Respiratory/Chest: decreased breath sounds Abdomen: distended Objective no change Drew Gonzalez MD July 05, 2019 13:56
--- NOTE | 2019-07-05 14:33 | Infectious Diseases Prog Note ---
Assessment/Plan Assessment/Plan IMPRESSION: COIVD19 Pneumonia, Positive on : 06/14, 06/20, 06/22, 06/25, 06/28 Cholelithiasis and elevated transaminase level, acidosis, dementia with behavioral problem. Dysphagia Hepatitis C RECOMMENDATION: Will f/u COVID19 test Subjective ROS Limited/Unobtainable: Yes Constitutional: Denies: fever Allergies: Coded Allergies: No Known Allergies (Unverified , 06/15/19) Objective Vital Signs Last 24 Hour Vital Signs Date Time Temp Pulse Resp B/P (MAP) Pulse Ox O2 Delivery O2 Flow Rate FiO2 07/05/19 12:00 97.8 76 20 129/68 (88) 96 07/05/19 09:00 Nasal Cannula 2.0 07/05/19 08:51 79 135/73 07/05/19 08:51 79 135/73 07/05/19 08:00 98.1 79 18 135/73 (93) 97 07/05/19 04:02 97 Nasal Cannula 2.0 28 07/05/19 04:00 98.2 82 20 129/74 (92) 95 07/05/19 00:00 97.4 70 20 129/73 (91) 95 07/04/19 21:00 Nasal Cannula 2.0 07/04/19 20:00 97.6 78 20 130/71 (90) 96 07/04/19 16:00 97.9 80 20 129/74 (92) 96 Height (Feet): 5 Height (Inches): 2.00 Weight (Pounds): 132 General Appearance: no acute distress HEENT: mucous membranes moist Cardiovascular: normal rate Abdomen: other - NG tube Neurologic/Psychiatric: disoriented Current Medications Medications (Trade) Dose Ordered Sig/Kaylan Route PRN Reason Start Time Stop Time Status Last Admin Dose Admin Acetaminophen (Tylenol) 500 mg Q6H PRN ORAL For Pain 06/29/19 18:15 07/16/19 00:14 07/01/19 09:11 Acetaminophen (Tylenol) 650 mg Q6H PRN ORAL For Headache 06/29/19 18:00 07/16/19 17:59 Albuterol Sulfate (Proventil MDI) 2 puff Q6H PRN INH Shortness of Breath 06/29/19 18:00 09/14/19 17:59 Amlodipine Besylate (Norvasc) 5 mg DAILY NG 06/30/19 09:00 07/23/19 11:59 07/05/19 08:51 Aspirin (ASA) 81 mg DAILY ORAL 06/30/19 09:00 07/31/19 08:59 07/05/19 08:51 Docusate Sodium (Colace) 100 mg DAILY ORAL 06/30/19 09:00 07/16/19 08:59 07/05/19 08:50 Enoxaparin Sodium (Lovenox) 40 mg DAILY SUBQ 06/30/19 09:00 09/14/19 08:59 07/05/19 08:52 Hydralazine HCl (Apresoline) 25 mg Q4H PRN ORAL SBP > 160mmHg 06/29/19 17:30 09/20/19 13:29 Metoprolol Succinate (Toprol XL) 25 mg DAILY ORAL 06/30/19 09:00 09/17/19 19:14 07/05/19 08:51 Mirtazapine (Remeron) 15 mg BEDTIME ORAL 06/29/19 21:00 09/19/19 20:59 07/04/19 20:19 Ondansetron HCl (Zofran) 4 mg Q6H PRN IVP Nausea & Vomiting 06/29/19 18:00 07/16/19 17:59 Polyethylene Glycol (Miralax) 17 gm BEDTIME ORAL 06/29/19 21:00 07/17/19 20:59 07/02/19 20:25 Benigno Betancourt MD July 05, 2019 14:33
--- NOTE | 2019-07-05 14:50 | Diagnostic Imaging Report ---
Indication: Post nasogastric tube placement Technique: Supine view of the abdomen Comparison: 06/23/2019 Findings: There is a nasogastric tube in place, tip projected at the level gastric antrum in good position. Bowel gas pattern is unremarkable. Impression: Satisfactory nasogastric intubation Findings previously reported to floor nurse
[2019-07-05 16:00] VITALS: BP 129/73
--- NOTE | 2019-07-05 16:03 | NUR ---
NURSE NOTES: COVID-19 Swab done. Specimen sent to lab.
--- NOTE | 2019-07-05 16:48 | General Progress Note ---
Assessment/Plan Problem List: (1) Elevated troponin ICD Codes: R79.89 - Other specified abnormal findings of blood chemistry SNOMED: 613293158, 480730603, 880301677 (2) Elevated LFTs ICD Codes: R79.89 - Other specified abnormal findings of blood chemistry SNOMED: 423226159, 697005590, 633691341 (3) Pneumonia ICD Codes: J18.9 - Pneumonia, unspecified organism SNOMED: 030556705, 470163767, 297913715 (4) Suspected 2019 novel coronavirus infection ICD Codes: R68.89 - Other general symptoms and signs SNOMED: 632370832 Status: progressing, unchanged Assessment/Plan: repeat covid positive pna will discuss w gi re elevated lft afebrile reviewed chart malnutrtition resp insuff poor appetite pna improved reviewed chart and labs sepsis Subjective ROS Limited/Unobtainable: Yes Allergies: Coded Allergies: No Known Allergies (Unverified , 06/15/19) Objective Last 24 Hour Vital Signs Date Time Temp Pulse Resp B/P (MAP) Pulse Ox O2 Delivery O2 Flow Rate FiO2 07/05/19 12:00 97.8 76 20 129/68 (88) 96 07/05/19 09:00 Nasal Cannula 2.0 07/05/19 08:51 79 135/73 07/05/19 08:51 79 135/73 07/05/19 08:00 98.1 79 18 135/73 (93) 97 07/05/19 04:02 97 Nasal Cannula 2.0 28 07/05/19 04:00 98.2 82 20 129/74 (92) 95 07/05/19 00:00 97.4 70 20 129/73 (91) 95 07/04/19 21:00 Nasal Cannula 2.0 07/04/19 20:00 97.6 78 20 130/71 (90) 96 Intake and Output 07/04/19 07/05/19 19:00 07:00 Intake Total 673 ml Balance 673 ml Free Water 200 ml Tube Feeding 473 ml # Voids 2 2 Height (Feet): 5 Height (Inches): 2.00 Weight (Pounds): 132 Gorge Malhotra MD July 05, 2019 16:48
--- NOTE | 2019-07-05 19:17 | NUR ---
HAND-OFF: Report given to MANOLO Sultana and endorsed POC.
--- NOTE | 2019-07-05 19:30 | NUR ---
NURSE NOTES: Patient in bed, on nasal cannula @2LPM, with NGT in left nares connected to feeding. WIth IV access on left forearm. With bilateral soft wrist restraints. Safety measures applied. Will continue plan of care.
[2019-07-05 20:00] VITALS: BP 120/81
[2019-07-05] MEDS: Miralax 17gm pkt ORAL SCH (20:00)
--- NOTE | 2019-07-05 22:40 | Psych Consult Progress Note ---
Psychiatry Progress Note Psychiatry Progress Note Medications Current Medications Medications (Trade) Dose Ordered Sig/Kaylan Route PRN Reason Start Time Stop Time Status Last Admin Dose Admin Acetaminophen (Tylenol) 500 mg Q6H PRN ORAL For Pain 06/29/19 18:15 07/16/19 00:14 07/01/19 09:11 Acetaminophen (Tylenol) 650 mg Q6H PRN ORAL For Headache 06/29/19 18:00 07/16/19 17:59 Albuterol Sulfate (Proventil MDI) 2 puff Q6H PRN INH Shortness of Breath 06/29/19 18:00 09/14/19 17:59 Amlodipine Besylate (Norvasc) 5 mg DAILY NG 06/30/19 09:00 07/23/19 11:59 07/05/19 08:51 Aspirin (ASA) 81 mg DAILY ORAL 06/30/19 09:00 07/31/19 08:59 07/05/19 08:51 Docusate Sodium (Colace) 100 mg DAILY ORAL 06/30/19 09:00 07/16/19 08:59 07/05/19 08:50 Enoxaparin Sodium (Lovenox) 40 mg DAILY SUBQ 06/30/19 09:00 09/14/19 08:59 07/05/19 08:52 Hydralazine HCl (Apresoline) 25 mg Q4H PRN ORAL SBP > 160mmHg 06/29/19 17:30 09/20/19 13:29 Metoprolol Succinate (Toprol XL) 25 mg DAILY ORAL 06/30/19 09:00 09/17/19 19:14 07/05/19 08:51 Mirtazapine (Remeron) 15 mg BEDTIME ORAL 06/29/19 21:00 09/19/19 20:59 07/05/19 20:06 Ondansetron HCl (Zofran) 4 mg Q6H PRN IVP Nausea & Vomiting 06/29/19 18:00 07/16/19 17:59 Polyethylene Glycol (Miralax) 17 gm BEDTIME ORAL 06/29/19 21:00 07/17/19 20:59 07/02/19 20:25 Neurological/Psychiatric: Reports: anxiety, depressed, emotional problems Allergies: Coded Allergies: No Known Allergies (Unverified , 06/15/19) Objective Data Height (Feet): 5 Height (Inches): 2.00 Weight (Pounds): 132 General Appearance: alert, confused, agitated Additional Comments: alert, confused and disoriented. Mood is agitated. Affect is flat. Thought process is concrete. Thought content, no suicidal or homicidal ideation. Cognition is impaired. Insight and judgment is impaired. Assessment/Plan Jonancy I: Dementia with behavior disturbance. Status: progressing, unchanged Assessment/Plan: PLAN: 1. Remeron 15 mg at night. 2. We will DC the benazepril. 3. Remove the soft restraint. 4. Discussed with the nurse. Karlo Santiago MD July 05, 2019 22:40
--- NOTE | 2019-07-05 23:35 | Cardiology Progress Note ---
Assessment/Plan Assessment/Plan 1. Dyspnea due to possibly combination of COVID-19 pneumonia in addition to with acute HFpEF, off lasix, continue metoprolol. LVEF is at 65%. 2. Possible [id number] myocardial infarction or elevated troponin I level could be secondary to myonecrosis due to CHF. 3. HCV infection. 4. Elevated LFTs. Subjective Subjective No cardiac events reported. On NC oxygen 2 lit/min. Objective Last 24 Hour Vital Signs Date Time Temp Pulse Resp B/P (MAP) Pulse Ox O2 Delivery O2 Flow Rate FiO2 07/05/19 21:00 Nasal Cannula 2.0 07/05/19 20:00 97.6 74 20 120/81 (94) 98 07/05/19 16:00 97.6 81 18 129/73 (91) 97 07/05/19 12:00 97.8 76 20 129/68 (88) 96 07/05/19 09:00 Nasal Cannula 2.0 07/05/19 08:51 79 135/73 07/05/19 08:51 79 135/73 07/05/19 08:36 96 Nasal Cannula 2.0 28 07/05/19 08:00 98.1 79 18 135/73 (93) 97 07/05/19 04:02 97 Nasal Cannula 2.0 28 07/05/19 04:00 98.2 82 20 129/74 (92) 95 07/05/19 00:00 97.4 70 20 129/73 (91) 95 Intake and Output 07/04/19 07/05/19 19:00 07:00 Intake Total 673 ml Balance 673 ml Free Water 200 ml Tube Feeding 473 ml # Voids 2 2 Objective HEENT: Atraumatic and normocephalic. Anicteric. Pupils are equal, round, and reactive to light and accommodation. Extraocular muscles intact. NECK: JVP is less than 5 cm. No carotid bruit. Carotid upstroke is 2+ bilaterally. CARDIOVASCULAR: Normal S1 and S2. Regular rate and rhythm. No murmurs, gallops, or rubs. PMI is at fourth intercostal space at midclavicular line. LUNGS: Diminished breath sounds in both bases with associated crackles. ABDOMEN: Soft, nontender, and nondistended. No hepatosplenomegaly. Positive bowel sounds. EXTREMITIES: No evidence of edema, clubbing, or cyanosis. Rolf Moreno MD July 05, 2019 23:35
--- NOTE | 2019-07-05 23:47 | Pulmonology Progress Note ---
Assessment/Plan Assessment/Plan Pulmonary Progress Note HPI: Patient is a 88-year-old male history of Dementia, Congestive Heart Failure , admitted from [facility] with Pneumonia, COVID 19 positive, noted to have fever and shortness of breath, chest congestion and tightness for 2 days. Noted to be confused in the ED. Had been febrile with low-grade temperatures for the past 2 days. No vomiting or diarrhea or abdominal pain. Stable O2 requirements - 2L NC, stable Pulmonary Status clinically, Covid isolation Awaiting G tube, NG tube replaced Seen earlier PMH: Dementia, Congestive Heart Failure Social Hx: Assisted Resident FHx: NC Allergies: No Known Allergies All Other Systems: limited - AMS Physical Exam Vital signs noted General: Awake and somewhat confused, no acute distress HEENT: NC/AT. EOMI. Cardiovascular: RRR. S1 and S2 normal. No murmur appreciated Resp: Mild tachypnea, normal work of breathing. On 2 L nasal cannula. No cough Abdomen: Abdomen is soft, nondistended. Nontender Skin: Intact. No abrasions, laceration or rash noted MSK: Normal tone and bulk. Moving all extremities. No obvious deformity. Neuro: Awake and somewhat confused. Poor historian. No focal signs Impression: Pneumonia Suspected 2019 novel coronavirus infection Elevated troponin, myonecrosis suspected Hepatitis C Elevated LFTs Lymphopenia Dementia Congestive Heart Failure Assisted Resident Plan Antibiotics/antivirals per ID O2 PRN Albuterol MDI PRN PPX - Lovenox ASA Monitor labs - hypokalemia - s/p supplementation Monitor cultures/viral studies Ultrasound of the abdomen pending. Isolation for suspected COVID-19 infection G tube pending Laboratory Tests noted EKG Rate: normal Rhythm: NSR ST Segments: no acute changes Sinus rhythm, left axis deviation. Occasional PACs. T wave inversions, no ST segment changes Chest X-Ray: Consolidations in the left lower lobe may represent an early pneumonia. No effusion. Current CXR slight worsening of infiltrates . Subjective ROS Limited/Unobtainable: No Constitutional: Denies: fever Respiratory: Reports: shortness of breath Allergies: Coded Allergies: No Known Allergies (Unverified , 06/15/19) All Systems: reviewed and negative except above Objective Last 24 Hour Vital Signs Date Time Temp Pulse Resp B/P (MAP) Pulse Ox O2 Delivery O2 Flow Rate FiO2 07/05/19 21:00 Nasal Cannula 2.0 07/05/19 20:00 97.6 74 20 120/81 (94) 98 07/05/19 16:00 97.6 81 18 129/73 (91) 97 07/05/19 12:00 97.8 76 20 129/68 (88) 96 07/05/19 09:00 Nasal Cannula 2.0 07/05/19 08:51 79 135/73 07/05/19 08:51 79 135/73 07/05/19 08:36 96 Nasal Cannula 2.0 28 07/05/19 08:00 98.1 79 18 135/73 (93) 97 07/05/19 04:02 97 Nasal Cannula 2.0 28 07/05/19 04:00 98.2 82 20 129/74 (92) 95 07/05/19 00:00 97.4 70 20 129/73 (91) 95 Intake and Output 07/04/19 07/05/19 19:00 07:00 Intake Total 673 ml Balance 673 ml Free Water 200 ml Tube Feeding 473 ml # Voids 2 2 General Appearance: no acute distress HEENT: mucous membranes moist Abdomen: other - NG tube Extremities: no edema Neurologic/Psychiatric: disoriented Current Medications Medications (Trade) Dose Ordered Sig/Kaylan Route PRN Reason Start Time Stop Time Status Last Admin Dose Admin Acetaminophen (Tylenol) 500 mg Q6H PRN ORAL For Pain 06/29/19 18:15 07/16/19 00:14 07/01/19 09:11 Acetaminophen (Tylenol) 650 mg Q6H PRN ORAL For Headache 06/29/19 18:00 07/16/19 17:59 Albuterol Sulfate (Proventil MDI) 2 puff Q6H PRN INH Shortness of Breath 06/29/19 18:00 09/14/19 17:59 Amlodipine Besylate (Norvasc) 5 mg DAILY NG 06/30/19 09:00 07/23/19 11:59 07/05/19 08:51 Aspirin (ASA) 81 mg DAILY ORAL 06/30/19 09:00 07/31/19 08:59 07/05/19 08:51 Docusate Sodium (Colace) 100 mg DAILY ORAL 06/30/19 09:00 07/16/19 08:59 07/05/19 08:50 Enoxaparin Sodium (Lovenox) 40 mg DAILY SUBQ 06/30/19 09:00 09/14/19 08:59 07/05/19 08:52 Hydralazine HCl (Apresoline) 25 mg Q4H PRN ORAL SBP > 160mmHg 06/29/19 17:30 09/20/19 13:29 Metoprolol Succinate (Toprol XL) 25 mg DAILY ORAL 06/30/19 09:00 09/17/19 19:14 07/05/19 08:51 Mirtazapine (Remeron) 15 mg BEDTIME ORAL 06/29/19 21:00 09/19/19 20:59 07/05/19 20:06 Ondansetron HCl (Zofran) 4 mg Q6H PRN IVP Nausea & Vomiting 06/29/19 18:00 07/16/19 17:59 Polyethylene Glycol (Miralax) 17 gm BEDTIME ORAL 06/29/19 21:00 07/17/19 20:59 07/02/19 20:25 Andrew Diaz MD July 05, 2019 23:47
[2019-07-06] VITALS: BP 111/68
[2019-07-06 04:00] VITALS: BP 114/74
--- NOTE | 2019-07-06 05:00 | NUR ---
NURSE NOTES: Patient was combative and agitated when he was being cleaned.
--- NOTE | 2019-07-06 07:09 | NUR ---
HAND-OFF: Report given to MANOLO Cai and MANOLO Pantoja.
--- NOTE | 2019-07-06 07:30 | NUR ---
NURSE NOTES: Received patient lying in hospital bed sleeping with no s/s of discomfort or distress. Patient has 2 point soft restraints on both L and R wrists for safety with pulses palpable on both extremities. No s/s of skin breakdown on areas with restraints. Patient is unable to make needs known d/t confusion. Patient dependent with all ADLs and is on bedrest. Lung sounds diminished to all lobes. Non-labored deep breathing observed. NGT in place on R nostril 70 cm in depth connected to feeding pump infusing Glucerna 1.5 at 43 ml/hr and is at goal rate. Patient is incontinent to both bowel and bladder function. SCDs in place on BLE. Optifoam dressings on sacral area and B heels. Skin intact. No s/s of skin breakdown at this time. Maintained bed in lowest position. Bed alarm is on. Will continue to monitor patient.
[2019-07-06 08:00] VITALS: BP 120/71
[2019-07-06] MEDS: Metoprolol Succinate XL 25mg tab ORAL SCH (09:00)
--- NOTE | 2019-07-06 09:03 | General Progress Note ---
Assessment/Plan Status: progressing, unchanged Assessment/Plan: 1. History of dementia. 2. CHF. 3. Hypertension. 4. BPH. 5. Constipation. 6. elevated LFTS 7. AMI 8. gallstones improving LFTS hep C positive>>> HCV RNA positive>>>patient needs out patient fu for treatment fu cardiology repeat labs in am ngtf on COVID isolation patient needs GT speech eval appreciated. patient has passed swallow eval but refuses to eat plan PEG when off of isolation Subjective ROS Limited/Unobtainable: No Allergies: Coded Allergies: No Known Allergies (Unverified , 06/15/19) Objective Last 24 Hour Vital Signs Date Time Temp Pulse Resp B/P (MAP) Pulse Ox O2 Delivery O2 Flow Rate FiO2 07/06/19 04:00 97.3 69 18 114/74 (87) 99 07/06/19 00:00 97.3 70 18 111/68 (82) 96 07/05/19 21:00 Nasal Cannula 2.0 07/05/19 20:00 97.6 74 20 120/81 (94) 98 07/05/19 16:00 97.6 81 18 129/73 (91) 97 07/05/19 12:00 97.8 76 20 129/68 (88) 96 Intake and Output 07/05/19 07/06/19 19:00 07:00 Intake Total 298 ml Output Total 500 ml Balance 298 ml -500 ml Free Water 40 ml Tube Feeding 258 ml Output Urine Total 500 ml # Voids 3 # Bowel Movements 1 Height (Feet): 5 Height (Inches): 2.00 Weight (Pounds): 133 General Appearance: no apparent distress EENT: normal ENT inspection Neck: supple Cardiovascular: normal rate Respiratory/Chest: decreased breath sounds Abdomen: normal bowel sounds, non tender, soft Extremities: non-tender Perry Quiroga MD July 06, 2019 09:03
[2019-07-06] MEDS: Enoxaparin 40mg Inj SUBQ SCH (09:13)
[2019-07-06] MEDS: Aspirin Baby 81mg ORAL SCH (09:14)
[2019-07-06] MEDS: Docusate 100mg cap ORAL SCH (09:14)
--- NOTE | 2019-07-06 11:22 | NUR ---
CASE MANAGEMENT:REVIEW SI;COVID-19 PNEUMONIA. SEPSIS. RESPIRATORY INSUFFICIENCY. CHOLELITHIASIS. HEP-C. 96.6 59 20 111/68 96% 2L NC FIO2 @ 28% NA 146 BUN 25 MG 2.6 AST 240 ALT 292 ALK PHOS 245 ALB 2.5 IS;NORVASC NG QD ASA NG QD LOVENOX SUBQ QD TOPROL XL NG QD MED SURG STATUS DCP;PATIENT IS FROM [facility];PEG PLACEMENT WHEN OFF ISOLATION
[2019-07-06 11:25] LABS: ANION GAP 4 mmol/L (5-15); BLOOD UREA NITROGEN 25 mg/dL (7-18); CALCIUM 9.2 MG/DL (8.5-10.1); CARBON DIOXIDE 36 MMOL/L (21-32); CHLORIDE 106 MMOL/L (98-107); CREATININE 0.8 MG/DL (0.55-1.30); POTASSIUM 4.1 MMOL/L (3.5-5.1); SODIUM 146 MMOL/L (136-145)
[2019-07-06 11:35] LABS: ALANINE AMINOTRANSFERASE 292 U/L (12-78); ALBUMIN 2.5 G/DL (3.4-5.0); ALBUMIN/GLOBULIN RATIO 0.4 (1.0-2.7); ALKALINE PHOSPHATASE 245 U/L (46-116); ASPARTATE AMINO TRANSFERASE 240 U/L (15-37); BILIRUBIN,TOTAL 0.4 MG/DL (0.2-1.0); PHOSPHORUS 4.1 MG/DL (2.5-4.9)
--- NOTE | 2019-07-06 11:45 | Hematology/Onc Progress Note ---
Assessment/Plan Assessment/Plan Assessment and Plan: # Leukopenia -- multiple etiologies could be related to underlying liver disease , medication-induced, infection versus viral syndrome, in this case likely due to COVID19+, and Hep C+ --> peripheral smear has been ordered and does not show significant abnormalities --> Medications have been reviewed --> Continue to monitor for improvement, trend cbc --> Hep panel and HIV have been ordered--> cw hep C++ exposure --> US abd ordered to r/o cirrhosis and hepatosplenomegaly --> none noted --> reverse isolation if ANC is <2000 --> Give neupogen if ANC <1000 --> 06/22 off abx, repeat covid pending -> HAS IMPROVED SINCE ADMISSION # Suspected 2019 novel coronavirus infection --> per id, on plaq, abx --> iso --> pulm eval recs noted --> 06/22 off abx per id # Pneumonia --> on abx --> oxygen prn --> per id # Elevated troponin ==> nstemi per cards --> diuresis prn # Elevated LFTs --> likely hep C related # Hep c --> vl and outpatient gi # Dysphagia with dec weight loss --> recommend gtube --> as per gi # Dvt ppx lovenox sq The timing of this note does not necessarily reflect the time of the patient was seen. Greatly appreciate consultation. Subjective Allergies: Coded Allergies: No Known Allergies (Unverified , 06/15/19) Subjective 06/20 breathing is better, on iso for covid 19, wbc improved 06/21 labs better, no bleeding, no f/c, meds noted, hcv+ 06/22 restraints, off abx, repeat covid pending, nc 06/23 no bleeding, labs noted, no night sweats, cbc reviewed, on 2l nc 06/25 remains on glucerna, have ordered for labs, no bleeding 06/26 remains on 2lnc as for covid infection, for iso 06/27 is on 2lnc, no bleeding, labs reviewed, no night sweats 06/28 labs have improved, no bleeding or chills, imaging noted 06/29 plan for peg when off iso, no bleeding, dw gi 06/30 with nc on board, ngt is running, no bleeding noted 07/02 labs are noted, no bleeding, meds reviewed 07/03 labs reviewed, seen by gi and renal, no bleeding, meds noted, with ngt / nc functional, with ngt in place, no night sweats, meds noted 07/05 confused, restraints, isolation, no acute distress Objective Objective Current Medications Medications (Trade) Dose Ordered Sig/Kaylan Route PRN Reason Start Time Stop Time Status Last Admin Dose Admin Acetaminophen (Tylenol) 500 mg Q6H PRN ORAL For Pain 06/29/19 18:15 07/16/19 00:14 07/01/19 09:11 Acetaminophen (Tylenol) 650 mg Q6H PRN ORAL For Headache 06/29/19 18:00 07/16/19 17:59 Albuterol Sulfate (Proventil MDI) 2 puff Q6H PRN INH Shortness of Breath 06/29/19 18:00 09/14/19 17:59 Amlodipine Besylate (Norvasc) 5 mg DAILY NG 06/30/19 09:00 07/23/19 11:59 07/05/19 08:51 Aspirin (ASA) 81 mg DAILY ORAL 06/30/19 09:00 07/31/19 08:59 07/06/19 09:14 Docusate Sodium (Colace) 100 mg DAILY ORAL 06/30/19 09:00 07/16/19 08:59 07/06/19 09:14 Enoxaparin Sodium (Lovenox) 40 mg DAILY SUBQ 06/30/19 09:00 09/14/19 08:59 07/06/19 09:13 Hydralazine HCl (Apresoline) 25 mg Q4H PRN ORAL SBP > 160mmHg 06/29/19 17:30 09/20/19 13:29 Metoprolol Succinate (Toprol XL) 25 mg DAILY ORAL 06/30/19 09:00 09/17/19 19:14 07/05/19 08:51 Mirtazapine (Remeron) 15 mg BEDTIME ORAL 06/29/19 21:00 09/19/19 20:59 07/05/19 20:06 Ondansetron HCl (Zofran) 4 mg Q6H PRN IVP Nausea & Vomiting 06/29/19 18:00 07/16/19 17:59 Polyethylene Glycol (Miralax) 17 gm BEDTIME ORAL 06/29/19 21:00 07/17/19 20:59 07/02/19 20:25 Last 24 Hour Vital Signs Date Time Temp Pulse Resp B/P (MAP) Pulse Ox O2 Delivery O2 Flow Rate FiO2 07/06/19 09:00 Nasal Cannula 2.0 07/06/19 09:00 59 120/71 07/06/19 09:00 59 120/71 07/06/19 08:00 96.6 59 20 120/71 (87) 99 07/06/19 04:00 97.3 69 18 114/74 (87) 99 07/06/19 00:00 97.3 70 18 111/68 (82) 96 07/05/19 21:00 Nasal Cannula 2.0 07/05/19 20:00 97.6 74 20 120/81 (94) 98 07/05/19 16:00 97.6 81 18 129/73 (91) 97 07/05/19 12:00 97.8 76 20 129/68 (88) 96 07/05/19 09:00 Nasal Cannula 2.0 07/05/19 08:51 79 135/73 07/05/19 08:51 79 135/73 07/05/19 08:36 96 Nasal Cannula 2.0 28 07/05/19 08:00 98.1 79 18 135/73 (93) 97 07/05/19 04:02 97 Nasal Cannula 2.0 28 07/05/19 04:00 98.2 82 20 129/74 (92) 95 07/05/19 00:00 97.4 70 20 129/73 (91) 95 07/04/19 21:00 Nasal Cannula 2.0 07/04/19 20:00 97.6 78 20 130/71 (90) 96 07/04/19 16:00 97.9 80 20 129/74 (92) 96 07/04/19 12:00 97.7 79 19 131/68 (89) 95 Intake and Output 07/05/19 07/06/19 19:00 07:00 Intake Total 298 ml Output Total 500 ml Balance 298 ml -500 ml Free Water 40 ml Tube Feeding 258 ml Output Urine Total 500 ml # Voids 3 # Bowel Movements 1 Labs Test 07/06/19 10:15 Sodium Level 146 MMOL/L (136-145) Potassium Level 4.1 MMOL/L (3.5-5.1) Chloride Level 106 MMOL/L (98-107) Carbon Dioxide Level 36 MMOL/L (21-32) Anion Gap 4 mmol/L (5-15) Blood Urea Nitrogen 25 mg/dL (7-18) Creatinine 0.8 MG/DL (0.55-1.30) Estimat Glomerular Filtration Rate > 60 mL/min (>60) Glucose Level 116 MG/DL (74-106) Calcium Level 9.2 MG/DL (8.5-10.1) Phosphorus Level 4.1 MG/DL (2.5-4.9) Magnesium Level 2.6 MG/DL (1.8-2.4) Total Bilirubin 0.4 MG/DL (0.2-1.0) Aspartate Amino Transf (AST/SGOT) 240 U/L (15-37) Alanine Aminotransferase (ALT/SGPT) 292 U/L (12-78) Alkaline Phosphatase 245 U/L (46-116) Total Protein 9.4 G/DL (6.4-8.2) Albumin 2.5 G/DL (3.4-5.0) Globulin 6.9 g/dL Albumin/Globulin Ratio 0.4 (1.0-2.7) Height (Feet): 5 Height (Inches): 2.00 Weight (Pounds): 133 Objective Physical Exam General: Awake + confused, no acute distress HEENT: NC/AT. EOMI. ++ngt Cardiovascular: RRR. S1 and S2 normal. No murmur appreciated Resp: Mild tachypnea, normal work of breathing. On 2 L nasal cannula+ Abdomen: Abdomen is soft, nondistended. Nt Skin: Intact. No abrasions, laceration MSK: Normal tone and bulk. Moving all extremities Neuro: Awake and somewhat confused. Poor historian Geraldo Galvez MD July 06, 2019 11:45
[2019-07-06 12:00] VITALS: BP 121/74
--- NOTE | 2019-07-06 12:43 | Infectious Diseases Prog Note ---
Assessment/Plan Assessment/Plan IMPRESSION: COIVD19 Pneumonia, Positive on : 06/14, 06/20, 06/22, 06/25, 06/28 Indeterminate: 07/02 Cholelithiasis and elevated transaminase level, acidosis, dementia with behavioral problem. Dysphagia Hepatitis C RECOMMENDATION: Will f/u COVID19 test Subjective ROS Limited/Unobtainable: Yes Neurologic: Reports: confusion, other - on restraint Allergies: Coded Allergies: No Known Allergies (Unverified , 06/15/19) Objective Vital Signs Last 24 Hour Vital Signs Date Time Temp Pulse Resp B/P (MAP) Pulse Ox O2 Delivery O2 Flow Rate FiO2 07/06/19 09:00 Nasal Cannula 2.0 07/06/19 09:00 59 120/71 07/06/19 09:00 59 120/71 07/06/19 08:00 96.6 59 20 120/71 (87) 99 07/06/19 04:00 97.3 69 18 114/74 (87) 99 07/06/19 00:00 97.3 70 18 111/68 (82) 96 07/05/19 21:00 Nasal Cannula 2.0 07/05/19 20:00 97.6 74 20 120/81 (94) 98 07/05/19 16:00 97.6 81 18 129/73 (91) 97 Height (Feet): 5 Height (Inches): 2.00 Weight (Pounds): 133 General Appearance: no acute distress HEENT: mucous membranes moist Cardiovascular: normal rate Abdomen: other - NG tube Extremities: no edema Neurologic/Psychiatric: other - sleeping Microbiology Date/Time Source Procedure Growth Status 07/03/19 15:30 Nasopharynx Coronavirus COVID-19 PCR ([facility]) - Final Complete Laboratory Tests Test 07/06/19 10:15 Sodium Level 146 MMOL/L (136-145) H Potassium Level 4.1 MMOL/L (3.5-5.1) Chloride Level 106 MMOL/L (98-107) Carbon Dioxide Level 36 MMOL/L (21-32) H Anion Gap 4 mmol/L (5-15) L Blood Urea Nitrogen 25 mg/dL (7-18) H Creatinine 0.8 MG/DL (0.55-1.30) Estimat Glomerular Filtration Rate > 60 mL/min (>60) Glucose Level 116 MG/DL (74-106) H Calcium Level 9.2 MG/DL (8.5-10.1) Phosphorus Level 4.1 MG/DL (2.5-4.9) Magnesium Level 2.6 MG/DL (1.8-2.4) H Total Bilirubin 0.4 MG/DL (0.2-1.0) Aspartate Amino Transf (AST/SGOT) 240 U/L (15-37) H Alanine Aminotransferase (ALT/SGPT) 292 U/L (12-78) H Alkaline Phosphatase 245 U/L (46-116) H Total Protein 9.4 G/DL (6.4-8.2) H Albumin 2.5 G/DL (3.4-5.0) L Globulin 6.9 g/dL Albumin/Globulin Ratio 0.4 (1.0-2.7) L Current Medications Medications (Trade) Dose Ordered Sig/Kaylan Route PRN Reason Start Time Stop Time Status Last Admin Dose Admin Acetaminophen (Tylenol) 500 mg Q6H PRN ORAL For Pain 06/29/19 18:15 07/16/19 00:14 07/01/19 09:11 Acetaminophen (Tylenol) 650 mg Q6H PRN ORAL For Headache 06/29/19 18:00 07/16/19 17:59 Albuterol Sulfate (Proventil MDI) 2 puff Q6H PRN INH Shortness of Breath 06/29/19 18:00 09/14/19 17:59 Amlodipine Besylate (Norvasc) 5 mg DAILY NG 06/30/19 09:00 07/23/19 11:59 07/05/19 08:51 Aspirin (ASA) 81 mg DAILY ORAL 06/30/19 09:00 07/31/19 08:59 07/06/19 09:14 Docusate Sodium (Colace) 100 mg DAILY ORAL 06/30/19 09:00 07/16/19 08:59 07/06/19 09:14 Enoxaparin Sodium (Lovenox) 40 mg DAILY SUBQ 06/30/19 09:00 09/14/19 08:59 07/06/19 09:13 Hydralazine HCl (Apresoline) 25 mg Q4H PRN ORAL SBP > 160mmHg 06/29/19 17:30 09/20/19 13:29 Metoprolol Succinate (Toprol XL) 25 mg DAILY ORAL 06/30/19 09:00 09/17/19 19:14 07/05/19 08:51 Mirtazapine (Remeron) 15 mg BEDTIME ORAL 06/29/19 21:00 09/19/19 20:59 07/05/19 20:06 Ondansetron HCl (Zofran) 4 mg Q6H PRN IVP Nausea & Vomiting 06/29/19 18:00 07/16/19 17:59 Polyethylene Glycol (Miralax) 17 gm BEDTIME ORAL 06/29/19 21:00 07/17/19 20:59 07/02/19 20:25 Benigno Betancourt MD July 06, 2019 12:43
--- NOTE | 2019-07-06 12:58 | Nephrology Progress Note ---
Assessment/Plan Problem List: (1) Dehydration (2) Electrolyte imbalance (3) Elevated LFTs (4) HTN (hypertension) (5) Suspected 2019 novel coronavirus infection Assessment Electrolyte imbalance Dehydration and free water deficit Pneumonia suspected COVID-19 infection Elevated troponin Dementia Cholelithiasis and elevated liver enzymes BPH Hypertension Plan Positive for COVID-19 Normal saline 500 cc bolus as needed Watch serum potassium and electrolytes Add Norvasc Hydralazine as needed for blood pressure over 160 systolic Monitor electrolyte Continue per consultants Urine analysis ordered as none is available since admission Per orders Subjective ROS Limited/Unobtainable: No Constitutional: Reports: malaise, weakness Objective Objective Last 24 Hour Vital Signs Date Time Temp Pulse Resp B/P (MAP) Pulse Ox O2 Delivery O2 Flow Rate FiO2 07/06/19 09:00 Nasal Cannula 2.0 07/06/19 09:00 59 120/71 07/06/19 09:00 59 120/71 07/06/19 08:00 96.6 59 20 120/71 (87) 99 07/06/19 04:00 97.3 69 18 114/74 (87) 99 07/06/19 00:00 97.3 70 18 111/68 (82) 96 07/05/19 21:00 Nasal Cannula 2.0 07/05/19 20:00 97.6 74 20 120/81 (94) 98 07/05/19 16:00 97.6 81 18 129/73 (91) 97 Intake and Output 07/05/19 07/06/19 19:00 07:00 Intake Total 298 ml Output Total 500 ml Balance 298 ml -500 ml Free Water 40 ml Tube Feeding 258 ml Output Urine Total 500 ml # Voids 3 # Bowel Movements 1 Laboratory Tests 07/06/19 10:15: Sodium Level 146H, Potassium Level 4.1, Chloride Level 106, Carbon Dioxide Level 36H, Anion Gap 4L, Blood Urea Nitrogen 25H, Creatinine 0.8, Estimat Glomerular Filtration Rate > 60, Glucose Level 116H, Calcium Level 9.2, Phosphorus Level 4.1, Magnesium Level 2.6H, Total Bilirubin 0.4, Aspartate Amino Transf (AST/SGOT) 240H, Alanine Aminotransferase (ALT/SGPT) 292H, Alkaline Phosphatase 245H, Total Protein 9.4H, Albumin 2.5L, Globulin 6.9, Albumin/Globulin Ratio 0.4L Height (Feet): 5 Height (Inches): 2.00 Weight (Pounds): 133 General Appearance: no apparent distress, lethargic EENT: other - NG tube in place Respiratory/Chest: decreased breath sounds Abdomen: soft Objective no change Drew Gonzalez MD July 06, 2019 12:58
--- NOTE | 2019-07-06 14:47 | NUR ---
NURSE NOTES: Received COVID-19 results from 07/03/2019 swab. Per [facility], results are indeterminate. Notified Dr. Moshe Betancourt and received new order for COVID-19 swab to be collected today.
--- NOTE | 2019-07-06 15:55 | NUR ---
NURSE NOTES: COVID-19 swab done via R nostril. Specimen sent to lab. Patient's L hand IV infiltrated. Inserted new 22g angiocath to R forearm secured with tegaderm and kerlix bandage. Flushed with 10 cc NS. No s/s of swelling or infiltration noted. Patient is incontinent to bowel and bladder. Applied new condom catheter to patient's penis and connected to drainage bag.
[2019-07-06 16:00] VITALS: BP 119/81
--- NOTE | 2019-07-06 17:31 | General Progress Note ---
Assessment/Plan Problem List: (1) Elevated troponin ICD Codes: R79.89 - Other specified abnormal findings of blood chemistry SNOMED: 830258883, 462302122, 096511814 (2) Elevated LFTs ICD Codes: R79.89 - Other specified abnormal findings of blood chemistry SNOMED: 012922473, 516177287, 178101598 (3) Pneumonia ICD Codes: J18.9 - Pneumonia, unspecified organism SNOMED: 653621655, 927216934, 081898524 (4) Suspected 2019 novel coronavirus infection ICD Codes: R68.89 - Other general symptoms and signs SNOMED: 350050644 Status: progressing, unchanged Assessment/Plan: repeat covid positive pna ng tube per gi repeat covid since last one indeterminate elevated lft malnutrtition resp insuff poor appetite pna improved reviewed chart and labs sepsis Subjective ROS Limited/Unobtainable: Yes Allergies: Coded Allergies: No Known Allergies (Unverified , 06/15/19) Objective Last 24 Hour Vital Signs Date Time Temp Pulse Resp B/P (MAP) Pulse Ox O2 Delivery O2 Flow Rate FiO2 07/06/19 16:00 98.3 76 19 119/81 (94) 98 07/06/19 12:00 96.8 75 20 121/74 (90) 98 07/06/19 09:00 Nasal Cannula 2.0 07/06/19 09:00 59 120/71 07/06/19 09:00 59 120/71 07/06/19 08:00 96.6 59 20 120/71 (87) 99 07/06/19 04:00 97.3 69 18 114/74 (87) 99 07/06/19 00:00 97.3 70 18 111/68 (82) 96 07/05/19 21:00 Nasal Cannula 2.0 07/05/19 20:00 97.6 74 20 120/81 (94) 98 Intake and Output 07/05/19 07/06/19 19:00 07:00 Intake Total 298 ml Output Total 500 ml Balance 298 ml -500 ml Free Water 40 ml Tube Feeding 258 ml Output Urine Total 500 ml # Voids 3 # Bowel Movements 1 Laboratory Tests 07/06/19 10:15: Sodium Level 146H, Potassium Level 4.1, Chloride Level 106, Carbon Dioxide Level 36H, Anion Gap 4L, Blood Urea Nitrogen 25H, Creatinine 0.8, Estimat Glomerular Filtration Rate > 60, Glucose Level 116H, Calcium Level 9.2, Phosphorus Level 4.1, Magnesium Level 2.6H, Total Bilirubin 0.4, Aspartate Amino Transf (AST/SGOT) 240H, Alanine Aminotransferase (ALT/SGPT) 292H, Alkaline Phosphatase 245H, Total Protein 9.4H, Albumin 2.5L, Globulin 6.9, Albumin/Globulin Ratio 0.4L Height (Feet): 5 Height (Inches): 2.00 Weight (Pounds): 133 Gorge Malhotra MD July 06, 2019 17:31
--- NOTE | 2019-07-06 18:00 | NUR ---
NURSE NOTES: Patient removed his condom catheter despite being on restraints. Pad changed. Pt able to self reposition. No s/s of skin breakdown. Will continue to monitor.
--- NOTE | 2019-07-06 19:30 | NUR ---
HAND-OFF: Report given to MANOLO Sultana. POC endorsed.
--- NOTE | 2019-07-06 19:30 | NUR ---
NURSE NOTES: Patient in bed, on 02 @2LPM, with NGtube connected to feeding. No complaints of pain upon rounds. With bilateral soft wrist restraints. Safety measures applied. Will continue plan of care.
[2019-07-06 20:00] VITALS: BP 150/92
--- NOTE | 2019-07-06 20:13 | Psych Consult Progress Note ---
Psychiatry Progress Note Psychiatry Progress Note Medications Current Medications Medications (Trade) Dose Ordered Sig/Kaylan Route PRN Reason Start Time Stop Time Status Last Admin Dose Admin Acetaminophen (Tylenol) 500 mg Q6H PRN ORAL For Pain 06/29/19 18:15 07/16/19 00:14 07/01/19 09:11 Acetaminophen (Tylenol) 650 mg Q6H PRN ORAL For Headache 06/29/19 18:00 07/16/19 17:59 Albuterol Sulfate (Proventil MDI) 2 puff Q6H PRN INH Shortness of Breath 06/29/19 18:00 09/14/19 17:59 Amlodipine Besylate (Norvasc) 5 mg DAILY NG 06/30/19 09:00 07/23/19 11:59 07/05/19 08:51 Aspirin (ASA) 81 mg DAILY ORAL 06/30/19 09:00 07/31/19 08:59 07/06/19 09:14 Docusate Sodium (Colace) 100 mg DAILY ORAL 06/30/19 09:00 07/16/19 08:59 07/06/19 09:14 Enoxaparin Sodium (Lovenox) 40 mg DAILY SUBQ 06/30/19 09:00 09/14/19 08:59 07/06/19 09:13 Hydralazine HCl (Apresoline) 25 mg Q4H PRN ORAL SBP > 160mmHg 06/29/19 17:30 09/20/19 13:29 Metoprolol Succinate (Toprol XL) 25 mg DAILY ORAL 06/30/19 09:00 09/17/19 19:14 07/05/19 08:51 Mirtazapine (Remeron) 15 mg BEDTIME ORAL 06/29/19 21:00 09/19/19 20:59 07/05/19 20:06 Ondansetron HCl (Zofran) 4 mg Q6H PRN IVP Nausea & Vomiting 06/29/19 18:00 07/16/19 17:59 Polyethylene Glycol (Miralax) 17 gm BEDTIME ORAL 06/29/19 21:00 07/17/19 20:59 07/02/19 20:25 Neurological/Psychiatric: Reports: anxiety, depressed, emotional problems Allergies: Coded Allergies: No Known Allergies (Unverified , 06/15/19) Objective Data Height (Feet): 5 Height (Inches): 2.00 Weight (Pounds): 133 General Appearance: WD/WN, alert, confused, agitated Assessment/Plan Status: progressing, unchanged Assessment/Plan: PLAN: 1. Remeron 15 mg at night. 3.nemanda was dced 4. Discussed with the nurse. Karlo Santiago MD July 06, 2019 20:12
[2019-07-06] MEDS: Miralax 17gm pkt ORAL SCH (20:24)
--- NOTE | 2019-07-06 23:12 | Cardiology Progress Note ---
Assessment/Plan Assessment/Plan 1. Dyspnea due to possibly combination of COVID-19 pneumonia in addition to with acute HFpEF, off lasix, continue metoprolol. LVEF is at 65%. 2. Possible [id number] myocardial infarction or elevated troponin I level could be secondary to myonecrosis due to CHF. 3. HCV infection. 4. Elevated LFTs. Subjective Subjective No cardiac events reported. On NC oxygen 2 lit/min. Objective Last 24 Hour Vital Signs Date Time Temp Pulse Resp B/P (MAP) Pulse Ox O2 Delivery O2 Flow Rate FiO2 07/06/19 21:00 Nasal Cannula 2.0 07/06/19 20:00 98.5 108 20 150/92 (111) 95 07/06/19 16:00 98.3 76 19 119/81 (94) 98 07/06/19 12:00 96.8 75 20 121/74 (90) 98 07/06/19 09:00 Nasal Cannula 2.0 07/06/19 09:00 59 120/71 07/06/19 09:00 59 120/71 07/06/19 08:00 96.6 59 20 120/71 (87) 99 07/06/19 04:00 97.3 69 18 114/74 (87) 99 07/06/19 00:00 97.3 70 18 111/68 (82) 96 Intake and Output 07/05/19 07/06/19 19:00 07:00 Intake Total 298 ml 43 ml Output Total 500 ml Balance 298 ml -457 ml Intake Oral 0 ml Free Water 40 ml Tube Feeding 258 ml 43 ml Output Urine Total 500 ml # Voids 3 # Bowel Movements 1 Laboratory Tests Test 07/06/19 10:15 Sodium Level 146 MMOL/L (136-145) H Potassium Level 4.1 MMOL/L (3.5-5.1) Chloride Level 106 MMOL/L (98-107) Carbon Dioxide Level 36 MMOL/L (21-32) H Anion Gap 4 mmol/L (5-15) L Blood Urea Nitrogen 25 mg/dL (7-18) H Creatinine 0.8 MG/DL (0.55-1.30) Estimat Glomerular Filtration Rate > 60 mL/min (>60) Glucose Level 116 MG/DL (74-106) H Calcium Level 9.2 MG/DL (8.5-10.1) Phosphorus Level 4.1 MG/DL (2.5-4.9) Magnesium Level 2.6 MG/DL (1.8-2.4) H Total Bilirubin 0.4 MG/DL (0.2-1.0) Aspartate Amino Transf (AST/SGOT) 240 U/L (15-37) H Alanine Aminotransferase (ALT/SGPT) 292 U/L (12-78) H Alkaline Phosphatase 245 U/L (46-116) H Total Protein 9.4 G/DL (6.4-8.2) H Albumin 2.5 G/DL (3.4-5.0) L Globulin 6.9 g/dL Albumin/Globulin Ratio 0.4 (1.0-2.7) L Objective HEENT: Atraumatic and normocephalic. Anicteric. Pupils are equal, round, and reactive to light and accommodation. Extraocular muscles intact. NECK: JVP is less than 5 cm. No carotid bruit. Carotid upstroke is 2+ bilaterally. CARDIOVASCULAR: Normal S1 and S2. Regular rate and rhythm. No murmurs, gallops, or rubs. PMI is at fourth intercostal space at midclavicular line. LUNGS: Diminished breath sounds in both bases with associated crackles. ABDOMEN: Soft, nontender, and nondistended. No hepatosplenomegaly. Positive bowel sounds. EXTREMITIES: No evidence of edema, clubbing, or cyanosis. Rolf Moreno MD July 06, 2019 23:12
--- NOTE | 2019-07-06 23:53 | Pulmonology Progress Note ---
Subjective ROS Limited/Unobtainable: No Constitutional: Denies: fever Respiratory: Reports: shortness of breath Allergies: Coded Allergies: No Known Allergies (Unverified , 06/15/19) All Systems: reviewed and negative except above Objective Last 24 Hour Vital Signs Date Time Temp Pulse Resp B/P (MAP) Pulse Ox O2 Delivery O2 Flow Rate FiO2 07/06/19 21:00 Nasal Cannula 2.0 07/06/19 20:00 98.5 108 20 150/92 (111) 95 07/06/19 16:00 98.3 76 19 119/81 (94) 98 07/06/19 12:00 96.8 75 20 121/74 (90) 98 07/06/19 09:00 Nasal Cannula 2.0 07/06/19 09:00 59 120/71 07/06/19 09:00 59 120/71 07/06/19 08:00 96.6 59 20 120/71 (87) 99 07/06/19 04:00 97.3 69 18 114/74 (87) 99 07/06/19 00:00 97.3 70 18 111/68 (82) 96 Intake and Output 07/05/19 07/06/19 19:00 07:00 Intake Total 298 ml 43 ml Output Total 500 ml Balance 298 ml -457 ml Intake Oral 0 ml Free Water 40 ml Tube Feeding 258 ml 43 ml Output Urine Total 500 ml # Voids 3 # Bowel Movements 1 General Appearance: no acute distress HEENT: mucous membranes moist Abdomen: other - NG tube Extremities: no edema Neurologic/Psychiatric: other - sleeping Laboratory Tests 07/06/19 10:15: Sodium Level 146H, Potassium Level 4.1, Chloride Level 106, Carbon Dioxide Level 36H, Anion Gap 4L, Blood Urea Nitrogen 25H, Creatinine 0.8, Estimat Glomerular Filtration Rate > 60, Glucose Level 116H, Calcium Level 9.2, Phosphorus Level 4.1, Magnesium Level 2.6H, Total Bilirubin 0.4, Aspartate Amino Transf (AST/SGOT) 240H, Alanine Aminotransferase (ALT/SGPT) 292H, Alkaline Phosphatase 245H, Total Protein 9.4H, Albumin 2.5L, Globulin 6.9, Albumin/Globulin Ratio 0.4L Current Medications Medications (Trade) Dose Ordered Sig/Kaylan Route PRN Reason Start Time Stop Time Status Last Admin Dose Admin Acetaminophen (Tylenol) 500 mg Q6H PRN ORAL For Pain 06/29/19 18:15 07/16/19 00:14 07/01/19 09:11 Acetaminophen (Tylenol) 650 mg Q6H PRN ORAL For Headache 06/29/19 18:00 07/16/19 17:59 Albuterol Sulfate (Proventil MDI) 2 puff Q6H PRN INH Shortness of Breath 06/29/19 18:00 09/14/19 17:59 Amlodipine Besylate (Norvasc) 5 mg DAILY NG 06/30/19 09:00 07/23/19 11:59 07/05/19 08:51 Aspirin (ASA) 81 mg DAILY ORAL 06/30/19 09:00 07/31/19 08:59 07/06/19 09:14 Docusate Sodium (Colace) 100 mg DAILY ORAL 06/30/19 09:00 07/16/19 08:59 07/06/19 09:14 Enoxaparin Sodium (Lovenox) 40 mg DAILY SUBQ 06/30/19 09:00 09/14/19 08:59 07/06/19 09:13 Hydralazine HCl (Apresoline) 25 mg Q4H PRN ORAL SBP > 160mmHg 06/29/19 17:30 09/20/19 13:29 Metoprolol Succinate (Toprol XL) 25 mg DAILY ORAL 06/30/19 09:00 09/17/19 19:14 07/05/19 08:51 Mirtazapine (Remeron) 15 mg BEDTIME ORAL 06/29/19 21:00 09/19/19 20:59 07/06/19 20:24 Ondansetron HCl (Zofran) 4 mg Q6H PRN IVP Nausea & Vomiting 06/29/19 18:00 07/16/19 17:59 Polyethylene Glycol (Miralax) 17 gm BEDTIME ORAL 06/29/19 21:00 07/17/19 20:59 07/02/19 20:25 Assessment/Plan Assessment/Plan Pulmonary Progress Note HPI: Patient is a 88-year-old male history of Dementia, Congestive Heart Failure , admitted from [facility] with Pneumonia, COVID 19 positive, noted to have fever and shortness of breath, chest congestion and tightness for 2 days. Noted to be confused in the ED. Had been febrile with low-grade temperatures for the past 2 days. No vomiting or diarrhea or abdominal pain. Stable O2 requirements - 2L NC, stable Pulmonary Status clinically, Covid isolation Awaiting G tube, NG tube replaced Seen earlier PMH: Dementia, Congestive Heart Failure Social Hx: Skilled Nursing Resident FHx: NC Allergies: No Known Allergies All Other Systems: limited - AMS Physical Exam Vital signs noted General: Awake and somewhat confused, no acute distress HEENT: NC/AT. EOMI. Cardiovascular: RRR. S1 and S2 normal. No murmur appreciated Resp: Mild tachypnea, normal work of breathing. On 2 L nasal cannula. No cough Abdomen: Abdomen is soft, nondistended. Nontender Skin: Intact. No abrasions, laceration or rash noted MSK: Normal tone and bulk. Moving all extremities. No obvious deformity. Neuro: Awake and somewhat confused. Poor historian. No focal signs Impression: Pneumonia Suspected 2018 novel coronavirus infection Elevated troponin, myonecrosis suspected Hepatitis C Elevated LFTs Lymphopenia Dementia Congestive Heart Failure Skilled Nursing Resident Plan Antibiotics/antivirals per ID O2 PRN Albuterol MDI PRN PPX - Lovenox ASA Monitor labs - hypokalemia - s/p supplementation Monitor cultures/viral studies Ultrasound of the abdomen pending. Isolation for suspected COVID-19 infection G tube pending Laboratory Tests noted EKG Rate: normal Rhythm: NSR ST Segments: no acute changes Sinus rhythm, left axis deviation. Occasional PACs. T wave inversions, no ST segment changes Chest X-Ray: Consolidations in the left lower lobe may represent an early pneumonia. No effusion. Current CXR slight worsening of infiltrates . Andrew Diaz MD July 06, 2019 23:53
[2019-07-07] VITALS: BP 143/95
[2019-07-07 04:00] VITALS: BP 133/77
[2019-07-07 07:13] LABS: BASOPHILS % (AUTO) 0.7 % (0.0-2.0); EOSINOPHILS % (AUTO) 3.1 % (0.0-3.0); HEMATOCRIT 46.8 % (42.0-52.0); HEMOGLOBIN 15.4 G/DL (14.2-18.0); LYMPHOCYTES % (AUTO) 22.8 % (20.0-45.0); MEAN CORPUSCULAR VOLUME 92 FL (80-99); MONOCYTES % (AUTO) 5.9 % (1.0-10.0); NEUTROPHILS % (AUTO) 67.5 % (45.0-75.0); PLATELET COUNT 423 K/UL (150-450); RED BLOOD COUNT 5.08 M/UL (4.70-6.10); RED CELL DISTRIBUTION WIDTH 13.4 % (11.6-14.8); WHITE BLOOD COUNT 9.4 K/UL (4.8-10.8)
--- NOTE | 2019-07-07 07:15 | NUR ---
NURSE NOTES: Received patient in bed. Awake, alert x1 confused. Czech speaking. Bilateral soft-wrist restraints in place, hands are warm and normal color for ethnicity. On 2 lpm via NC. IV in the Right forearm, site is intact. NGtube in place, flushed and patent running feeding as ordered. Bed low and locked, call light within reach.
--- NOTE | 2019-07-07 07:25 | NUR ---
HAND-OFF: Report given to MANOLO Nicholson.
[2019-07-07 07:36] LABS: ALANINE AMINOTRANSFERASE 283 U/L (12-78); ALBUMIN 2.4 G/DL (3.4-5.0); ALBUMIN/GLOBULIN RATIO 0.4 (1.0-2.7); ALKALINE PHOSPHATASE 211 U/L (46-116); ANION GAP 7 mmol/L (5-15); ASPARTATE AMINO TRANSFERASE 238 U/L (15-37); BILIRUBIN,TOTAL 0.5 MG/DL (0.2-1.0); BLOOD UREA NITROGEN 25 mg/dL (7-18); CALCIUM 9.3 MG/DL (8.5-10.1); CARBON DIOXIDE 33 MMOL/L (21-32); CHLORIDE 107 MMOL/L (98-107); CREATININE 0.8 MG/DL (0.55-1.30); POTASSIUM 4.3 MMOL/L (3.5-5.1); SODIUM 146 MMOL/L (136-145)
[2019-07-07 08:00] VITALS: BP 134/76
--- NOTE | 2019-07-07 09:22 | Hematology/Onc Progress Note ---
Assessment/Plan Assessment/Plan Assessment and Plan: # Leukopenia -- multiple etiologies could be related to underlying liver disease , medication-induced, infection versus viral syndrome, in this case likely due to COVID19+, and Hep C+ --> peripheral smear has been ordered and does not show significant abnormalities --> Medications have been reviewed --> Continue to monitor for improvement, trend cbc --> Hep panel and HIV have been ordered--> cw hep C++ exposure --> US abd ordered to r/o cirrhosis and hepatosplenomegaly --> none noted --> reverse isolation if ANC is <2000 --> Give neupogen if ANC <1000 --> 06/22 off abx, repeat covid pending -> HAS IMPROVED SINCE ADMISSION # Suspected 2019 novel coronavirus infection --> per id, on plaq, abx --> iso --> pulm eval recs noted --> 06/22 off abx per id # Pneumonia --> on abx --> oxygen prn --> per id # Elevated troponin ==> nstemi per cards --> diuresis prn # Elevated LFTs --> likely hep C related # Hep c --> vl and outpatient gi # Dysphagia with dec weight loss --> recommend gtube --> as per gi # Dvt ppx lovenox sq The timing of this note does not necessarily reflect the time of the patient was seen. Greatly appreciate consultation. Subjective HEENT: Denies: no symptoms, eye pain, blurred vision, tearing, double vision, ear pain, ear discharge, nose pain, nose congestion, throat pain, throat swelling, mouth pain, mouth swelling, other Cardiovascular: Denies: no symptoms, chest pain, edema, irregular heart rate, lightheadedness, palpitations, syncope, other Gastrointestinal/Abdominal: Denies: no symptoms, abdomen distended, abdominal pain, black stools, tarry stools, blood in stool, constipated, diarrhea, difficulty swallowing, nausea, poor appetite, poor fluid intake, rectal bleeding , vomiting, other Genitourinary: Denies: no symptoms, burning, discharge, frequency, flank pain, hematuria, incontinence, pain, urgency, other Neurologic/Psychiatric: Denies: no symptoms, anxiety, depressed, emotional problems, headache, numbness, paresthesia, pre-existing deficit, seizure, tingling, tremors, weakness, other Endocrine: Denies: no symptoms, excessive sweating, flushing, intolerance to cold, intolerance to heat, increased hunger, increased thirst, increased urine, unexplained weight gain, unexplained weight loss, other Allergies: Coded Allergies: No Known Allergies (Unverified , 06/15/19) Subjective 06/20 breathing is better, on iso for covid 19, wbc improved 06/21 labs better, no bleeding, no f/c, meds noted, hcv+ 06/22 restraints, off abx, repeat covid pending, nc 06/23 no bleeding, labs noted, no night sweats, cbc reviewed, on 2l nc 06/25 remains on glucerna, have ordered for labs, no bleeding 06/26 remains on 2lnc as for covid infection, for iso 06/27 is on 2lnc, no bleeding, labs reviewed, no night sweats 06/28 labs have improved, no bleeding or chills, imaging noted 06/29 plan for peg when off iso, no bleeding, dw gi 06/30 with nc on board, ngt is running, no bleeding noted 07/02 labs are noted, no bleeding, meds reviewed 07/03 labs reviewed, seen by gi and renal, no bleeding, meds noted, with ngt 07/04 nc functional, with ngt in place, no night sweats, meds noted 07/05 confused, restraints, isolation, no acute distress 07/06 remains mostly confused with nc, no bleeding, meds noted Objective Objective Current Medications Medications (Trade) Dose Ordered Sig/Kaylan Route PRN Reason Start Time Stop Time Status Last Admin Dose Admin Acetaminophen (Tylenol) 500 mg Q6H PRN ORAL For Pain 06/29/19 18:15 07/16/19 00:14 07/01/19 09:11 Acetaminophen (Tylenol) 650 mg Q6H PRN ORAL For Headache 06/29/19 18:00 07/16/19 17:59 Albuterol Sulfate (Proventil MDI) 2 puff Q6H PRN INH Shortness of Breath 06/29/19 18:00 09/14/19 17:59 Amlodipine Besylate (Norvasc) 5 mg DAILY NG 06/30/19 09:00 07/23/19 11:59 07/05/19 08:51 Aspirin (ASA) 81 mg DAILY ORAL 06/30/19 09:00 07/31/19 08:59 07/06/19 09:14 Docusate Sodium (Colace) 100 mg DAILY ORAL 06/30/19 09:00 07/16/19 08:59 07/06/19 09:14 Enoxaparin Sodium (Lovenox) 40 mg DAILY SUBQ 06/30/19 09:00 09/14/19 08:59 07/06/19 09:13 Hydralazine HCl (Apresoline) 25 mg Q4H PRN ORAL SBP > 160mmHg 06/29/19 17:30 09/20/19 13:29 Metoprolol Succinate (Toprol XL) 25 mg DAILY ORAL 06/30/19 09:00 09/17/19 19:14 07/05/19 08:51 Mirtazapine (Remeron) 15 mg BEDTIME ORAL 06/29/19 21:00 09/19/19 20:59 07/06/19 20:24 Ondansetron HCl (Zofran) 4 mg Q6H PRN IVP Nausea & Vomiting 06/29/19 18:00 07/16/19 17:59 Polyethylene Glycol (Miralax) 17 gm BEDTIME ORAL 06/29/19 21:00 07/17/19 20:59 07/02/19 20:25 Last 24 Hour Vital Signs Date Time Temp Pulse Resp B/P (MAP) Pulse Ox O2 Delivery O2 Flow Rate FiO2 07/07/19 04:00 97.8 73 16 133/77 (95) 96 07/07/19 00:00 98.6 101 18 143/95 (111) 95 07/06/19 21:00 Nasal Cannula 2.0 07/06/19 20:00 98.5 108 20 150/92 (111) 95 07/06/19 20:00 95 Nasal Cannula 2.0 28 07/06/19 16:00 98.3 76 19 119/81 (94) 98 07/06/19 12:00 96.8 75 20 121/74 (90) 98 07/06/19 09:00 Nasal Cannula 2.0 07/06/19 09:00 59 120/71 07/06/19 09:00 59 120/71 07/06/19 08:00 96.6 59 20 120/71 (87) 99 07/06/19 04:00 97.3 69 18 114/74 (87) 99 07/06/19 00:00 97.3 70 18 111/68 (82) 96 07/05/19 21:00 Nasal Cannula 2.0 07/05/19 20:00 97.6 74 20 120/81 (94) 98 07/05/19 16:00 97.6 81 18 129/73 (91) 97 07/05/19 12:00 97.8 76 20 129/68 (88) 96 Intake and Output 07/06/19 07/07/19 19:00 07:00 Intake Total 556 ml Balance 556 ml Free Water 40 ml Tube Feeding 516 ml # Voids 100 3 # Bowel Movements 2 1 Labs Test 07/06/19 10:15 07/07/19 05:45 Sodium Level 146 MMOL/L (136-145) 146 MMOL/L (136-145) Potassium Level 4.1 MMOL/L (3.5-5.1) 4.3 MMOL/L (3.5-5.1) Chloride Level 106 MMOL/L (98-107) 107 MMOL/L (98-107) Carbon Dioxide Level 36 MMOL/L (21-32) 33 MMOL/L (21-32) Anion Gap 4 mmol/L (5-15) 7 mmol/L (5-15) Blood Urea Nitrogen 25 mg/dL (7-18) 25 mg/dL (7-18) Creatinine 0.8 MG/DL (0.55-1.30) 0.8 MG/DL (0.55-1.30) Estimat Glomerular Filtration Rate > 60 mL/min (>60) > 60 mL/min (>60) Glucose Level 116 MG/DL (74-106) 109 MG/DL (74-106) Calcium Level 9.2 MG/DL (8.5-10.1) 9.3 MG/DL (8.5-10.1) Phosphorus Level 4.1 MG/DL (2.5-4.9) Magnesium Level 2.6 MG/DL (1.8-2.4) Total Bilirubin 0.4 MG/DL (0.2-1.0) 0.5 MG/DL (0.2-1.0) Aspartate Amino Transf (AST/SGOT) 240 U/L (15-37) 238 U/L (15-37) Alanine Aminotransferase (ALT/SGPT) 292 U/L (12-78) 283 U/L (12-78) Alkaline Phosphatase 245 U/L (46-116) 211 U/L (46-116) Total Protein 9.4 G/DL (6.4-8.2) 9.2 G/DL (6.4-8.2) Albumin 2.5 G/DL (3.4-5.0) 2.4 G/DL (3.4-5.0) Globulin 6.9 g/dL 6.8 g/dL Albumin/Globulin Ratio 0.4 (1.0-2.7) 0.4 (1.0-2.7) White Blood Count 9.4 K/UL (4.8-10.8) Red Blood Count 5.08 M/UL (4.70-6.10) Hemoglobin 15.4 G/DL (14.2-18.0) Hematocrit 46.8 % (42.0-52.0) Mean Corpuscular Volume 92 FL (80-99) Mean Corpuscular Hemoglobin 30.4 PG (27.0-31.0) Mean Corpuscular Hemoglobin Concent 33.0 G/DL (32.0-36.0) Red Cell Distribution Width 13.4 % (11.6-14.8) Platelet Count 423 K/UL (150-450) Mean Platelet Volume 5.9 FL (6.5-10.1) Neutrophils (%) (Auto) 67.5 % (45.0-75.0) Lymphocytes (%) (Auto) 22.8 % (20.0-45.0) Monocytes (%) (Auto) 5.9 % (1.0-10.0) Eosinophils (%) (Auto) 3.1 % (0.0-3.0) Basophils (%) (Auto) 0.7 % (0.0-2.0) Height (Feet): 5 Height (Inches): 2.00 Weight (Pounds): 133 Objective Physical Exam General: Awake + confused, no acute distress HEENT: NC/AT. EOMI. ++ngt Cardiovascular: RRR. S1 and S2 normal. No murmur appreciated Resp: Mild tachypnea, normal work of breathing. On 2 L nasal cannula+ Abdomen: Abdomen is soft, nondistended. Nt Skin: Intact. No abrasions, laceration MSK: Normal tone and bulk. Moving all extremities Neuro: Awake and somewhat confused. Poor historian Geraldo Galvez MD July 07, 2019 09:22
[2019-07-07] MEDS: Aspirin Baby 81mg ORAL SCH (09:48)
[2019-07-07] MEDS: Metoprolol Succinate XL 25mg tab ORAL SCH (09:49)
[2019-07-07] MEDS: Docusate 100mg cap ORAL SCH (09:49)
[2019-07-07] MEDS: Enoxaparin 40mg Inj SUBQ SCH (09:54)
--- NOTE | 2019-07-07 10:39 | NUR ---
RD ASSESSMENT & RECOMMENDATIONS SEE CARE ACTIVITY FOR COMPLETE ASSESSMENT DAILY ESTIMATED NEEDS: Needs based on Cardiac, pulmonary 61.2kg 25-30 kcals/kg 7399-3781 total kcals 1-1.5 g protein/kg 61-92 g total protein 20-25 mL/kg 1178-4509 total fluid mLs NUTRITION DIAGNOSIS: Swallowing and chewing difficulty r/t dysphagia as evidenced by pt on liquify puree texture diet w/ NTL, variable PO intake and 1:1 feeds, now on NGT feeds + oral grat. CURRENT TF:Glucerna 1.5@43ml/hr + Oral grat ENTERAL NUTRITION RECOMMENDATIONS: Glucerna 1.5 @43ml/hr x24 hrs to provide 1032ml, 1548 kcal, 85g pro, 783ml free H2O - Maintain current TF - Flush per , HOB over 30 degrees. ------- ADDITIONAL RECOMMENDATIONS: 1) Obtain a calibrated bed scale wt and UPDATED EMR, Updated wt of 59.165kg is more c/w initial wt 2) Monitor lytes (K now wnl), need for renal TF 3) TF recs as above 4) rec NISS w/ TF's for glycemic control 5) Wound eval: BL heel partial thickness wounds per EMR documentation(06/24) 6) Rec to INCREASE water flushes (elev NA 146)
--- NOTE | 2019-07-07 11:02 | Nephrology Progress Note ---
Assessment/Plan Problem List: (1) Dehydration (2) Electrolyte imbalance (3) Elevated LFTs (4) HTN (hypertension) (5) Suspected 2019 novel coronavirus infection Assessment Electrolyte imbalance Dehydration and free water deficit Pneumonia suspected COVID-19 infection Elevated troponin Dementia Cholelithiasis and elevated liver enzymes BPH Hypertension Plan Positive for COVID-19 Normal saline 500 cc bolus as needed Watch serum potassium and electrolytes Add Norvasc Hydralazine as needed for blood pressure over 160 systolic Monitor electrolyte Continue per consultants Urine analysis ordered as none is available since admission Per orders Subjective ROS Limited/Unobtainable: No Constitutional: Reports: malaise Objective Objective Last 24 Hour Vital Signs Date Time Temp Pulse Resp B/P (MAP) Pulse Ox O2 Delivery O2 Flow Rate FiO2 07/07/19 09:49 77 134/76 07/07/19 09:48 77 134/76 07/07/19 09:00 Nasal Cannula 2.0 07/07/19 08:00 97.2 77 18 134/76 (95) 97 07/07/19 04:00 97.8 73 16 133/77 (95) 96 07/07/19 00:00 98.6 101 18 143/95 (111) 95 07/06/19 21:00 Nasal Cannula 2.0 07/06/19 20:00 98.5 108 20 150/92 (111) 95 07/06/19 20:00 95 Nasal Cannula 2.0 28 07/06/19 16:00 98.3 76 19 119/81 (94) 98 07/06/19 12:00 96.8 75 20 121/74 (90) 98 Intake and Output 07/06/19 07/07/19 19:00 07:00 Intake Total 556 ml Balance 556 ml Free Water 40 ml Tube Feeding 516 ml # Voids 100 3 # Bowel Movements 2 1 Laboratory Tests 07/07/19 05:45: White Blood Count 9.4, Red Blood Count 5.08, Hemoglobin 15.4, Hematocrit 46.8, Mean Corpuscular Volume 92, Mean Corpuscular Hemoglobin 30.4, Mean Corpuscular Hemoglobin Concent 33.0, Red Cell Distribution Width 13.4, Platelet Count 423, Mean Platelet Volume 5.9L, Neutrophils (%) (Auto) 67.5, Lymphocytes (%) (Auto) 22.8, Monocytes (%) (Auto) 5.9, Eosinophils (%) (Auto) 3.1H, Basophils (%) (Auto ) 0.7, Sodium Level 146H, Potassium Level 4.3, Chloride Level 107, Carbon Dioxide Level 33H, Anion Gap 7, Blood Urea Nitrogen 25H, Creatinine 0.8, Estimat Glomerular Filtration Rate > 60, Glucose Level 109H, Calcium Level 9.3, Total Bilirubin 0.5, Aspartate Amino Transf (AST/SGOT) 238H, Alanine Aminotransferase (ALT/SGPT) 283H, Alkaline Phosphatase 211H, Total Protein 9.2H , Albumin 2.4L, Globulin 6.8, Albumin/Globulin Ratio 0.4L Height (Feet): 5 Height (Inches): 2.00 Weight (Pounds): 133 General Appearance: no apparent distress, lethargic EENT: other - Patient has an NG tube Cardiovascular: normal rate Respiratory/Chest: decreased breath sounds Abdomen: soft Objective no change Drew Gonzalez MD July 07, 2019 11:02
--- NOTE | 2019-07-07 11:09 | General Progress Note ---
Assessment/Plan Status: progressing, unchanged Assessment/Plan: 1. History of dementia. 2. CHF. 3. Hypertension. 4. BPH. 5. Constipation. 6. elevated LFTS 7. AMI 8. gallstones improving LFTS hep C positive>>> HCV RNA positive>>>patient needs out patient fu for treatment fu cardiology repeat labs in am ngtf on COVID isolation last COVID test neg patient needs GT speech eval appreciated. patient has passed swallow eval but refuses to eat plan PEG when off of isolation possibly on Thursday Subjective ROS Limited/Unobtainable: No Allergies: Coded Allergies: No Known Allergies (Unverified , 06/15/19) Objective Last 24 Hour Vital Signs Date Time Temp Pulse Resp B/P (MAP) Pulse Ox O2 Delivery O2 Flow Rate FiO2 07/07/19 09:49 77 134/76 07/07/19 09:48 77 134/76 07/07/19 09:00 Nasal Cannula 2.0 07/07/19 08:00 97.2 77 18 134/76 (95) 97 07/07/19 04:00 97.8 73 16 133/77 (95) 96 07/07/19 00:00 98.6 101 18 143/95 (111) 95 07/06/19 21:00 Nasal Cannula 2.0 07/06/19 20:00 98.5 108 20 150/92 (111) 95 07/06/19 20:00 95 Nasal Cannula 2.0 28 07/06/19 16:00 98.3 76 19 119/81 (94) 98 07/06/19 12:00 96.8 75 20 121/74 (90) 98 Intake and Output 07/06/19 07/07/19 19:00 07:00 Intake Total 556 ml Balance 556 ml Free Water 40 ml Tube Feeding 516 ml # Voids 100 3 # Bowel Movements 2 1 Laboratory Tests 07/07/19 05:45: White Blood Count 9.4, Red Blood Count 5.08, Hemoglobin 15.4, Hematocrit 46.8, Mean Corpuscular Volume 92, Mean Corpuscular Hemoglobin 30.4, Mean Corpuscular Hemoglobin Concent 33.0, Red Cell Distribution Width 13.4, Platelet Count 423, Mean Platelet Volume 5.9L, Neutrophils (%) (Auto) 67.5, Lymphocytes (%) (Auto) 22.8, Monocytes (%) (Auto) 5.9, Eosinophils (%) (Auto) 3.1H, Basophils (%) (Auto ) 0.7, Sodium Level 146H, Potassium Level 4.3, Chloride Level 107, Carbon Dioxide Level 33H, Anion Gap 7, Blood Urea Nitrogen 25H, Creatinine 0.8, Estimat Glomerular Filtration Rate > 60, Glucose Level 109H, Calcium Level 9.3, Total Bilirubin 0.5, Aspartate Amino Transf (AST/SGOT) 238H, Alanine Aminotransferase (ALT/SGPT) 283H, Alkaline Phosphatase 211H, Total Protein 9.2H , Albumin 2.4L, Globulin 6.8, Albumin/Globulin Ratio 0.4L Height (Feet): 5 Height (Inches): 2.00 Weight (Pounds): 133 General Appearance: no apparent distress EENT: normal ENT inspection Neck: supple Cardiovascular: normal rate Respiratory/Chest: decreased breath sounds Abdomen: normal bowel sounds, non tender, soft Extremities: non-tender Perry Quiroga MD July 07, 2019 11:09
--- NOTE | 2019-07-07 11:32 | Infectious Diseases Prog Note ---
Assessment/Plan Assessment/Plan IMPRESSION: COIVD19 Pneumonia, Positive on : 06/14, 06/20, 06/22, 06/25, 06/28 Indeterminate: 07/02 Negative: 07/04 Cholelithiasis and elevated transaminase level, acidosis, dementia with behavioral problem. Dysphagia Hepatitis C RECOMMENDATION: Will f/u COVID19 test Subjective ROS Limited/Unobtainable: Yes Neurologic: Reports: confusion, other - on restraint Allergies: Coded Allergies: No Known Allergies (Unverified , 06/15/19) Objective Vital Signs Last 24 Hour Vital Signs Date Time Temp Pulse Resp B/P (MAP) Pulse Ox O2 Delivery O2 Flow Rate FiO2 07/07/19 09:49 77 134/76 07/07/19 09:48 77 134/76 07/07/19 09:00 Nasal Cannula 2.0 07/07/19 08:00 97.2 77 18 134/76 (95) 97 07/07/19 04:00 97.8 73 16 133/77 (95) 96 07/07/19 00:00 98.6 101 18 143/95 (111) 95 07/06/19 21:00 Nasal Cannula 2.0 07/06/19 20:00 98.5 108 20 150/92 (111) 95 07/06/19 20:00 95 Nasal Cannula 2.0 28 07/06/19 16:00 98.3 76 19 119/81 (94) 98 07/06/19 12:00 96.8 75 20 121/74 (90) 98 Height (Feet): 5 Height (Inches): 2.00 Weight (Pounds): 133 General Appearance: no acute distress HEENT: mucous membranes moist Cardiovascular: normal rate Abdomen: soft, non tender, other - NG tube Extremities: no edema Neurologic/Psychiatric: disoriented Microbiology Date/Time Source Procedure Growth Status 07/05/19 15:45 Nasopharynx Coronavirus COVID-19 PCR ([facility]) - Final Complete Laboratory Tests Test 07/07/19 05:45 White Blood Count 9.4 K/UL (4.8-10.8) Red Blood Count 5.08 M/UL (4.70-6.10) Hemoglobin 15.4 G/DL (14.2-18.0) Hematocrit 46.8 % (42.0-52.0) Mean Corpuscular Volume 92 FL (80-99) Mean Corpuscular Hemoglobin 30.4 PG (27.0-31.0) Mean Corpuscular Hemoglobin Concent 33.0 G/DL (32.0-36.0) Red Cell Distribution Width 13.4 % (11.6-14.8) Platelet Count 423 K/UL (150-450) Mean Platelet Volume 5.9 FL (6.5-10.1) L Neutrophils (%) (Auto) 67.5 % (45.0-75.0) Lymphocytes (%) (Auto) 22.8 % (20.0-45.0) Monocytes (%) (Auto) 5.9 % (1.0-10.0) Eosinophils (%) (Auto) 3.1 % (0.0-3.0) H Basophils (%) (Auto) 0.7 % (0.0-2.0) Sodium Level 146 MMOL/L (136-145) H Potassium Level 4.3 MMOL/L (3.5-5.1) Chloride Level 107 MMOL/L (98-107) Carbon Dioxide Level 33 MMOL/L (21-32) H Anion Gap 7 mmol/L (5-15) Blood Urea Nitrogen 25 mg/dL (7-18) H Creatinine 0.8 MG/DL (0.55-1.30) Estimat Glomerular Filtration Rate > 60 mL/min (>60) Glucose Level 109 MG/DL (74-106) H Calcium Level 9.3 MG/DL (8.5-10.1) Total Bilirubin 0.5 MG/DL (0.2-1.0) Aspartate Amino Transf (AST/SGOT) 238 U/L (15-37) H Alanine Aminotransferase (ALT/SGPT) 283 U/L (12-78) H Alkaline Phosphatase 211 U/L (46-116) H Total Protein 9.2 G/DL (6.4-8.2) H Albumin 2.4 G/DL (3.4-5.0) L Globulin 6.8 g/dL Albumin/Globulin Ratio 0.4 (1.0-2.7) L Current Medications Medications (Trade) Dose Ordered Sig/Kaylan Route PRN Reason Start Time Stop Time Status Last Admin Dose Admin Acetaminophen (Tylenol) 500 mg Q6H PRN ORAL For Pain 06/29/19 18:15 07/16/19 00:14 07/01/19 09:11 Acetaminophen (Tylenol) 650 mg Q6H PRN ORAL For Headache 06/29/19 18:00 07/16/19 17:59 Albuterol Sulfate (Proventil MDI) 2 puff Q6H PRN INH Shortness of Breath 06/29/19 18:00 09/14/19 17:59 Amlodipine Besylate (Norvasc) 5 mg DAILY NG 06/30/19 09:00 07/23/19 11:59 07/07/19 09:48 Aspirin (ASA) 81 mg DAILY ORAL 06/30/19 09:00 07/31/19 08:59 07/07/19 09:48 Docusate Sodium (Colace) 100 mg DAILY ORAL 06/30/19 09:00 07/16/19 08:59 07/07/19 09:49 Enoxaparin Sodium (Lovenox) 40 mg DAILY SUBQ 06/30/19 09:00 09/14/19 08:59 07/07/19 09:54 Hydralazine HCl (Apresoline) 25 mg Q4H PRN ORAL SBP > 160mmHg 06/29/19 17:30 09/20/19 13:29 Metoprolol Succinate (Toprol XL) 25 mg DAILY ORAL 06/30/19 09:00 09/17/19 19:14 07/07/19 09:49 Mirtazapine (Remeron) 15 mg BEDTIME ORAL 06/29/19 21:00 09/19/19 20:59 07/06/19 20:24 Ondansetron HCl (Zofran) 4 mg Q6H PRN IVP Nausea & Vomiting 06/29/19 18:00 07/16/19 17:59 Polyethylene Glycol (Miralax) 17 gm BEDTIME ORAL 06/29/19 21:00 07/17/19 20:59 07/02/19 20:25 Benigno Betancourt MD July 07, 2019 11:32
[2019-07-07 12:00] VITALS: BP 154/84
[2019-07-07 16:00] VITALS: BP 123/72
--- NOTE | 2019-07-07 16:37 | General Progress Note ---
Assessment/Plan Problem List: (1) Elevated troponin ICD Codes: R79.89 - Other specified abnormal findings of blood chemistry SNOMED: 445642835, 627698197, 046427136 (2) Elevated LFTs ICD Codes: R79.89 - Other specified abnormal findings of blood chemistry SNOMED: 637920300, 338187459, 240009457 (3) Pneumonia ICD Codes: J18.9 - Pneumonia, unspecified organism SNOMED: 856913568, 880402806, 302242793 (4) Suspected 2019 novel coronavirus infection ICD Codes: R68.89 - Other general symptoms and signs SNOMED: 967718699 Status: progressing, unchanged Assessment/Plan: repeat covid positive pna ng tube per gi repeat covid since last one indeterminate elevated lft malnutrtition resp insuff awaiting covi results not hypoxic afebrile sepsis Subjective ROS Limited/Unobtainable: Yes Allergies: Coded Allergies: No Known Allergies (Unverified , 06/15/19) Objective Last 24 Hour Vital Signs Date Time Temp Pulse Resp B/P (MAP) Pulse Ox O2 Delivery O2 Flow Rate FiO2 07/07/19 12:00 96.7 81 17 154/84 (107) 96 07/07/19 09:49 77 134/76 07/07/19 09:48 77 134/76 07/07/19 09:00 Nasal Cannula 2.0 07/07/19 08:00 97.2 77 18 134/76 (95) 97 07/07/19 04:00 97.8 73 16 133/77 (95) 96 07/07/19 00:00 98.6 101 18 143/95 (111) 95 07/06/19 21:00 Nasal Cannula 2.0 07/06/19 20:00 98.5 108 20 150/92 (111) 95 07/06/19 20:00 95 Nasal Cannula 2.0 28 Intake and Output 07/06/19 07/07/19 19:00 07:00 Intake Total 556 ml Balance 556 ml Free Water 40 ml Tube Feeding 516 ml # Voids 100 3 # Bowel Movements 2 1 Laboratory Tests 07/07/19 05:45: White Blood Count 9.4, Red Blood Count 5.08, Hemoglobin 15.4, Hematocrit 46.8, Mean Corpuscular Volume 92, Mean Corpuscular Hemoglobin 30.4, Mean Corpuscular Hemoglobin Concent 33.0, Red Cell Distribution Width 13.4, Platelet Count 423, Mean Platelet Volume 5.9L, Neutrophils (%) (Auto) 67.5, Lymphocytes (%) (Auto) 22.8, Monocytes (%) (Auto) 5.9, Eosinophils (%) (Auto) 3.1H, Basophils (%) (Auto ) 0.7, Sodium Level 146H, Potassium Level 4.3, Chloride Level 107, Carbon Dioxide Level 33H, Anion Gap 7, Blood Urea Nitrogen 25H, Creatinine 0.8, Estimat Glomerular Filtration Rate > 60, Glucose Level 109H, Calcium Level 9.3, Total Bilirubin 0.5, Aspartate Amino Transf (AST/SGOT) 238H, Alanine Aminotransferase (ALT/SGPT) 283H, Alkaline Phosphatase 211H, Total Protein 9.2H , Albumin 2.4L, Globulin 6.8, Albumin/Globulin Ratio 0.4L Height (Feet): 5 Height (Inches): 2.00 Weight (Pounds): 133 Gorge Malhotra MD July 07, 2019 16:37
--- NOTE | 2019-07-07 19:20 | NUR ---
HAND-OFF: Report given to Felicitas FRENCH.
--- NOTE | 2019-07-07 19:44 | NUR ---
NURSE NOTES: Received patient in bed, patient is Liberian speaking only, alert/ oriented x1, has NG tube in place via left nostril, on Glucerna 1.5 at 43 cc per hour, tolerating well, no residual. Patient is on 2 liters of oxygen via NC. Patient has soft bilateral wrist restraints on, will be closely monitored for safety and comfort. IV site is clean dry and intact. Call light is within reach, bed is lowered, locked, alarm is on.
[2019-07-07 20:00] VITALS: BP 118/78
[2019-07-07] MEDS: Miralax 17gm pkt ORAL SCH (21:05)
--- NOTE | 2019-07-07 23:35 | Cardiology Progress Note ---
Assessment/Plan Assessment/Plan 1. Dyspnea due to possibly combination of COVID-19 pneumonia in addition to with acute HFpEF, off lasix, continue metoprolol. LVEF is at 65%. 2. 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 3. HCV infection. 4. Elevated LFTs. Subjective Subjective No cardiac events reported. On NC oxygen 2 lit/min. Objective Last 24 Hour Vital Signs Date Time Temp Pulse Resp B/P (MAP) Pulse Ox O2 Delivery O2 Flow Rate FiO2 07/07/19 22:20 Nasal Cannula 2.0 07/07/19 20:11 95 Nasal Cannula 2.0 28 07/07/19 20:00 97.0 80 18 118/78 (91) 95 07/07/19 16:00 96.3 72 18 123/72 (89) 95 07/07/19 12:00 96.7 81 17 154/84 (107) 96 07/07/19 09:49 77 134/76 07/07/19 09:48 77 134/76 07/07/19 09:00 Nasal Cannula 2.0 07/07/19 08:00 97.2 77 18 134/76 (95) 97 07/07/19 04:00 97.8 73 16 133/77 (95) 96 07/07/19 00:00 98.6 101 18 143/95 (111) 95 Intake and Output 07/06/19 07/07/19 19:00 07:00 Intake Total 556 ml Balance 556 ml Free Water 40 ml Tube Feeding 516 ml # Voids 100 3 # Bowel Movements 2 1 Laboratory Tests Test 07/07/19 05:45 White Blood Count 9.4 K/UL (4.8-10.8) Red Blood Count 5.08 M/UL (4.70-6.10) Hemoglobin 15.4 G/DL (14.2-18.0) Hematocrit 46.8 % (42.0-52.0) Mean Corpuscular Volume 92 FL (80-99) Mean Corpuscular Hemoglobin 30.4 PG (27.0-31.0) Mean Corpuscular Hemoglobin Concent 33.0 G/DL (32.0-36.0) Red Cell Distribution Width 13.4 % (11.6-14.8) Platelet Count 423 K/UL (150-450) Mean Platelet Volume 5.9 FL (6.5-10.1) L Neutrophils (%) (Auto) 67.5 % (45.0-75.0) Lymphocytes (%) (Auto) 22.8 % (20.0-45.0) Monocytes (%) (Auto) 5.9 % (1.0-10.0) Eosinophils (%) (Auto) 3.1 % (0.0-3.0) H Basophils (%) (Auto) 0.7 % (0.0-2.0) Sodium Level 146 MMOL/L (136-145) H Potassium Level 4.3 MMOL/L (3.5-5.1) Chloride Level 107 MMOL/L (98-107) Carbon Dioxide Level 33 MMOL/L (21-32) H Anion Gap 7 mmol/L (5-15) Blood Urea Nitrogen 25 mg/dL (7-18) H Creatinine 0.8 MG/DL (0.55-1.30) Estimat Glomerular Filtration Rate > 60 mL/min (>60) Glucose Level 109 MG/DL (74-106) H Calcium Level 9.3 MG/DL (8.5-10.1) Total Bilirubin 0.5 MG/DL (0.2-1.0) Aspartate Amino Transf (AST/SGOT) 238 U/L (15-37) H Alanine Aminotransferase (ALT/SGPT) 283 U/L (12-78) H Alkaline Phosphatase 211 U/L (46-116) H Total Protein 9.2 G/DL (6.4-8.2) H Albumin 2.4 G/DL (3.4-5.0) L Globulin 6.8 g/dL Albumin/Globulin Ratio 0.4 (1.0-2.7) L Microbiology Date/Time Source Procedure Growth Status 07/05/19 15:45 Nasopharynx Coronavirus COVID-19 PCR ([facility]) - Final Complete Objective HEENT: Atraumatic and normocephalic. Anicteric. Pupils are equal, round, and reactive to light and accommodation. Extraocular muscles intact. NECK: JVP is less than 5 cm. No carotid bruit. Carotid upstroke is 2+ bilaterally. CARDIOVASCULAR: Normal S1 and S2. Regular rate and rhythm. No murmurs, gallops, or rubs. PMI is at fourth intercostal space at midclavicular line. LUNGS: Diminished breath sounds in both bases with associated crackles. ABDOMEN: Soft, nontender, and nondistended. No hepatosplenomegaly. Positive bowel sounds. EXTREMITIES: No evidence of edema, clubbing, or cyanosis. Rolf Moreno MD July 07, 2019 23:35
[2019-07-08] VITALS (10 sets, daily range): BP systolic 102–145; BP diastolic 69–90
--- NOTE | 2019-07-08 00:40 | Pulmonology Progress Note ---
Subjective ROS Limited/Unobtainable: No Constitutional: Denies: fever Respiratory: Reports: shortness of breath Allergies: Coded Allergies: No Known Allergies (Unverified , 06/15/19) All Systems: reviewed and negative except above Objective Last 24 Hour Vital Signs Date Time Temp Pulse Resp B/P (MAP) Pulse Ox O2 Delivery O2 Flow Rate FiO2 07/08/19 00:00 98.1 76 18 129/76 (93) 97 07/07/19 22:20 Nasal Cannula 2.0 07/07/19 20:11 95 Nasal Cannula 2.0 28 07/07/19 20:00 97.0 80 18 118/78 (91) 95 07/07/19 16:00 96.3 72 18 123/72 (89) 95 07/07/19 12:00 96.7 81 17 154/84 (107) 96 07/07/19 09:49 77 134/76 07/07/19 09:48 77 134/76 07/07/19 09:00 Nasal Cannula 2.0 07/07/19 08:00 97.2 77 18 134/76 (95) 97 07/07/19 04:00 97.8 73 16 133/77 (95) 96 Intake and Output 07/07/19 07/08/19 19:00 07:00 # Voids 3 General Appearance: no acute distress HEENT: mucous membranes moist Abdomen: soft, non tender, other - NG tube Extremities: no edema Neurologic/Psychiatric: disoriented Microbiology Date/Time Source Procedure Growth Status 07/05/19 15:45 Nasopharynx Coronavirus COVID-19 PCR ([facility]) - Final Complete Laboratory Tests 07/07/19 05:45: White Blood Count 9.4, Red Blood Count 5.08, Hemoglobin 15.4, Hematocrit 46.8, Mean Corpuscular Volume 92, Mean Corpuscular Hemoglobin 30.4, Mean Corpuscular Hemoglobin Concent 33.0, Red Cell Distribution Width 13.4, Platelet Count 423, Mean Platelet Volume 5.9L, Neutrophils (%) (Auto) 67.5, Lymphocytes (%) (Auto) 22.8, Monocytes (%) (Auto) 5.9, Eosinophils (%) (Auto) 3.1H, Basophils (%) (Auto ) 0.7, Sodium Level 146H, Potassium Level 4.3, Chloride Level 107, Carbon Dioxide Level 33H, Anion Gap 7, Blood Urea Nitrogen 25H, Creatinine 0.8, Estimat Glomerular Filtration Rate > 60, Glucose Level 109H, Calcium Level 9.3, Total Bilirubin 0.5, Aspartate Amino Transf (AST/SGOT) 238H, Alanine Aminotransferase (ALT/SGPT) 283H, Alkaline Phosphatase 211H, Total Protein 9.2H , Albumin 2.4L, Globulin 6.8, Albumin/Globulin Ratio 0.4L Current Medications Medications (Trade) Dose Ordered Sig/Kaylan Route PRN Reason Start Time Stop Time Status Last Admin Dose Admin Acetaminophen (Tylenol) 500 mg Q6H PRN ORAL For Pain 06/29/19 18:15 07/16/19 00:14 07/01/19 09:11 Acetaminophen (Tylenol) 650 mg Q6H PRN ORAL For Headache 06/29/19 18:00 07/16/19 17:59 Albuterol Sulfate (Proventil MDI) 2 puff Q6H PRN INH Shortness of Breath 06/29/19 18:00 09/14/19 17:59 Amlodipine Besylate (Norvasc) 5 mg DAILY NG 06/30/19 09:00 07/23/19 11:59 07/07/19 09:48 Aspirin (ASA) 81 mg DAILY ORAL 06/30/19 09:00 07/31/19 08:59 07/07/19 09:48 Docusate Sodium (Colace) 100 mg DAILY ORAL 06/30/19 09:00 07/16/19 08:59 07/07/19 09:49 Enoxaparin Sodium (Lovenox) 40 mg DAILY SUBQ 06/30/19 09:00 09/14/19 08:59 07/07/19 09:54 Hydralazine HCl (Apresoline) 25 mg Q4H PRN ORAL SBP > 160mmHg 06/29/19 17:30 09/20/19 13:29 Metoprolol Succinate (Toprol XL) 25 mg DAILY ORAL 06/30/19 09:00 09/17/19 19:14 07/07/19 09:49 Mirtazapine (Remeron) 15 mg BEDTIME ORAL 06/29/19 21:00 09/19/19 20:59 07/07/19 21:05 Ondansetron HCl (Zofran) 4 mg Q6H PRN IVP Nausea & Vomiting 06/29/19 18:00 07/16/19 17:59 Polyethylene Glycol (Miralax) 17 gm BEDTIME ORAL 06/29/19 21:00 07/17/19 20:59 07/07/19 21:05 Assessment/Plan Assessment/Plan Pulmonary Progress Note HPI: Patient is a 88-year-old male history of Dementia, Congestive Heart Failure , admitted from half-way facility with Pneumonia, COVID 19 positive, noted to have fever and shortness of breath, chest congestion and tightness for 2 days. Noted to be confused in the ED. Had been febrile with low-grade temperatures for the past 2 days. No vomiting or diarrhea or abdominal pain. Stable O2 requirements - 2L NC, stable Pulmonary Status clinically, Covid isolation Awaiting G tube, NG tube replaced Seen earlier Seen on 07/07/2019 PMH: Dementia, Congestive Heart Failure Social Hx: Residential Resident FHx: NC Allergies: No Known Allergies All Other Systems: limited - AMS Physical Exam Vital signs noted General: Awake and somewhat confused, no acute distress HEENT: NC/AT. EOMI. Cardiovascular: RRR. S1 and S2 normal. No murmur appreciated Resp: Mild tachypnea, normal work of breathing. On 2 L nasal cannula. No cough Abdomen: Abdomen is soft, nondistended. Nontender Skin: Intact. No abrasions, laceration or rash noted MSK: Normal tone and bulk. Moving all extremities. No obvious deformity. Neuro: Awake and somewhat confused. Poor historian. No focal signs Impression: Pneumonia Suspected 2018 novel coronavirus infection Elevated troponin, myonecrosis suspected Hepatitis C Elevated LFTs Lymphopenia Dementia Congestive Heart Failure Residential Resident Plan Antibiotics/antivirals per ID O2 PRN Albuterol MDI PRN PPX - Lovenox ASA Monitor labs - hypokalemia - s/p supplementation Monitor cultures/viral studies Ultrasound of the abdomen pending. Isolation for suspected COVID-19 infection G tube pending Laboratory Tests noted EKG Rate: normal Rhythm: NSR ST Segments: no acute changes Sinus rhythm, left axis deviation. Occasional PACs. T wave inversions, no ST segment changes Chest X-Ray: Consolidations in the left lower lobe may represent an early pneumonia. No effusion. Current CXR slight worsening of infiltrates . Andrew Diaz MD July 08, 2019 00:40
--- NOTE | 2019-07-08 01:29 | Progress Note ---
DATE: 07/07/2019 SUBJECTIVE: The patient is manageable and he is awaiting placement, confused, Sinhala speaking, continues to be on soft bilateral restraints. He was asleep during my evaluation. Per nurse, still has been attempting to pull out his NG tube. MENTAL STATUS EXAMINATION: The patient is alert. Was asleep, arousable. Mood is neutral. Affect is flat. Thought process is concrete. Thought content, no suicidal or homicidal ideation. Cognition is impaired. Insight and judgment, impaired. ASSESSMENT: Dementia with behavior disturbance. PLAN: 1. Continue Remeron 15 mg at bedtime. 2. Continue the soft restraints. Karlo Santiago M.D. DR: Kb JOB#: [id number] CC:
--- NOTE | 2019-07-08 07:40 | NUR ---
NURSE NOTES: Report received from MANOLO Polk. Per nurse, patient pulled out NGT this am despite bilateral wrist restraints. Pending reinsertion, equipment at bedside. Seen on rounds, AxOx1, Greek speaking, not in distress. On 2lpm via NC, tolerating well. Afebrile. PIV on right forearm patent and intact. Bed low and locked, siderails up x3, alarms on zone 1. Will continue to monitor and implement plan of care.
[2019-07-08] MEDS: Metoprolol Succinate XL 25mg tab ORAL SCH (09:00)
[2019-07-08] MEDS: Enoxaparin 40mg Inj SUBQ SCH ×2 (09:00→10:17)
[2019-07-08] MEDS: Docusate 100mg cap ORAL SCH (09:00)
[2019-07-08] MEDS: Aspirin Baby 81mg ORAL SCH (09:00)
--- NOTE | 2019-07-08 09:00 | NUR ---
NURSE NOTES: AM meds not administered pending Gtube placement. Patient placed on NPO for procedure. Lovenox not given.
--- NOTE | 2019-07-08 09:20 | NUR ---
NURSE NOTES: MD Kaye Betancourt discontinued isolation precautions and stated MD Quiroga was cleared to place Gtube. Will leave message with MD Quiroga.
--- NOTE | 2019-07-08 10:03 | NUR ---
NURSE NOTES: Consent obtained for ordered EGD with possible biopsy, PEG with possible feed tube. Telephone consent obtained with daughter Liza Richardson and witnessed with charge nurse Andrew Chavez. Consents in chart.
--- NOTE | 2019-07-08 10:38 | Pre-Procedure Note/Attestation ---
Pre-Procedure Note/Attestation Complete Prior to Procedure Planned Procedure: not applicable Procedure Narrative: egd/peg Indications for Procedure Pre-Operative Diagnosis: dysphagia Attestation I attest that I discussed the nature of the procedure; its benefits; risks and complications; and alternatives (and the risks and benefits of such alternatives ), prior to the procedure, with the patient (or the patient's legal major account representative). I attest that, if there was a reasonable possibility of needing a blood transfusion, the patient (or the patient's legal major account representative) was given the [facility] standardized written summary, pursuant to the Larry Shemar Blood Safety Act ([place] Health and Safety Code # 1645, as amended). I attest that I re-evaluated the patient just prior to the surgery and that there has been no change in the patient's H&P, except as documented below: Perry Quiroga MD July 08, 2019 10:38
--- NOTE | 2019-07-08 11:40 | NUR ---
DISCHARGE PLANNING PATIENT HAS BEEN REFERRED BACK TO [facility] P: [phone] F: [phone] CLINICALS HAVE BEEN FAXED TO [facility] FOR REVIEW FOR DISCHARGE PLANNING. PATIENT PENDING PEG PLACEMENT.
--- NOTE | 2019-07-08 11:42 | Hematology/Onc Progress Note ---
Assessment/Plan Assessment/Plan Assessment and Plan: # Leukopenia -- multiple etiologies could be related to underlying liver disease , medication-induced, infection versus viral syndrome, in this case likely due to COVID19+, and Hep C+ --> peripheral smear has been ordered and does not show significant abnormalities --> Medications have been reviewed --> Continue to monitor for improvement, trend cbc --> Hep panel and HIV have been ordered--> cw hep C++ exposure --> US abd ordered to r/o cirrhosis and hepatosplenomegaly --> none noted --> reverse isolation if ANC is <2000 --> Give neupogen if ANC <1000 --> 06/22 off abx, repeat covid pending -> HAS IMPROVED SINCE ADMISSION --> wbc 7 # Suspected 2019 novel coronavirus infection --> per id, on plaq, abx --> iso --> pulm eval recs noted --> 06/22 off abx per id # Pneumonia --> on abx --> oxygen prn --> per id # Elevated troponin ==> nstemi per cards --> diuresis prn # Elevated LFTs --> likely hep C related # Hep c --> vl and outpatient gi # Dysphagia with dec weight loss --> recommend gtube --> as per gi # Dvt ppx lovenox sq The timing of this note does not necessarily reflect the time of the patient was seen. Greatly appreciate consultation. Subjective HEENT: Denies: no symptoms, eye pain, blurred vision, tearing, double vision, ear pain, ear discharge, nose pain, nose congestion, throat pain, throat swelling, mouth pain, mouth swelling, other Cardiovascular: Denies: no symptoms, chest pain, edema, irregular heart rate, lightheadedness, palpitations, syncope, other Respiratory: Denies: no symptoms, cough, shortness of breath, SOB with excertion, SOB at rest, sputum, wheezing, other Gastrointestinal/Abdominal: Denies: no symptoms, abdomen distended, abdominal pain, black stools, tarry stools, blood in stool, constipated, diarrhea, difficulty swallowing, nausea, poor appetite, poor fluid intake, rectal bleeding , vomiting, other Genitourinary: Denies: no symptoms, burning, discharge, frequency, flank pain, hematuria, incontinence, pain, urgency, other Endocrine: Denies: no symptoms, excessive sweating, flushing, intolerance to cold, intolerance to heat, increased hunger, increased thirst, increased urine, unexplained weight gain, unexplained weight loss, other Allergies: Coded Allergies: No Known Allergies (Unverified , 06/15/19) Subjective 06/20 breathing is better, on iso for covid 19, wbc improved 06/21 labs better, no bleeding, no f/c, meds noted, hcv+ 06/22 restraints, off abx, repeat covid pending, nc 06/23 no bleeding, labs noted, no night sweats, cbc reviewed, on 2l nc 06/25 remains on glucerna, have ordered for labs, no bleeding 06/26 remains on 2lnc as for covid infection, for iso 06/27 is on 2lnc, no bleeding, labs reviewed, no night sweats 06/28 labs have improved, no bleeding or chills, imaging noted 06/29 plan for peg when off iso, no bleeding, dw gi 06/30 with nc on board, ngt is running, no bleeding noted 07/02 labs are noted, no bleeding, meds reviewed 07/03 labs reviewed, seen by gi and renal, no bleeding, meds noted, with ngt 07/04 nc functional, with ngt in place, no night sweats, meds noted 07/05 confused, restraints, isolation, no acute distress 07/06 remains mostly confused with nc, no bleeding, meds noted 07/07 remains confused, no fc, no bleeding Objective Objective Current Medications Medications (Trade) Dose Ordered Sig/Kaylan Route PRN Reason Start Time Stop Time Status Last Admin Dose Admin Acetaminophen (Tylenol) 500 mg Q6H PRN ORAL For Pain 06/29/19 18:15 07/16/19 00:14 07/01/19 09:11 Acetaminophen (Tylenol) 650 mg Q6H PRN ORAL For Headache 06/29/19 18:00 07/16/19 17:59 Albuterol Sulfate (Proventil MDI) 2 puff Q6H PRN INH Shortness of Breath 06/29/19 18:00 09/14/19 17:59 Amlodipine Besylate (Norvasc) 5 mg DAILY NG 06/30/19 09:00 07/23/19 11:59 07/07/19 09:48 Aspirin (ASA) 81 mg DAILY ORAL 06/30/19 09:00 07/31/19 08:59 07/07/19 09:48 Docusate Sodium (Colace) 100 mg DAILY ORAL 06/30/19 09:00 07/16/19 08:59 07/07/19 09:49 Enoxaparin Sodium (Lovenox) 40 mg DAILY SUBQ 06/30/19 09:00 09/14/19 08:59 07/07/19 09:54 Hydralazine HCl (Apresoline) 25 mg Q4H PRN ORAL SBP > 160mmHg 06/29/19 17:30 09/20/19 13:29 Metoprolol Succinate (Toprol XL) 25 mg DAILY ORAL 06/30/19 09:00 09/17/19 19:14 07/07/19 09:49 Mirtazapine (Remeron) 15 mg BEDTIME ORAL 06/29/19 21:00 09/19/19 20:59 07/07/19 21:05 Ondansetron HCl (Zofran) 4 mg Q6H PRN IVP Nausea & Vomiting 06/29/19 18:00 07/16/19 17:59 Polyethylene Glycol (Miralax) 17 gm BEDTIME ORAL 06/29/19 21:00 07/17/19 20:59 07/07/19 21:05 Last 24 Hour Vital Signs Date Time Temp Pulse Resp B/P (MAP) Pulse Ox O2 Delivery O2 Flow Rate FiO2 07/08/19 09:00 Nasal Cannula 2.0 07/08/19 09:00 67 126/77 07/08/19 09:00 67 126/77 07/08/19 08:00 98.4 67 17 126/77 (93) 97 07/08/19 07:40 94 Nasal Cannula 2.0 28 07/08/19 04:00 97.2 79 18 134/74 (94) 95 07/08/19 00:00 98.1 76 18 129/76 (93) 97 07/07/19 22:20 Nasal Cannula 2.0 07/07/19 20:11 95 Nasal Cannula 2.0 28 07/07/19 20:00 97.0 80 18 118/78 (91) 95 07/07/19 16:00 96.3 72 18 123/72 (89) 95 07/07/19 12:00 96.7 81 17 154/84 (107) 96 07/07/19 09:49 77 134/76 07/07/19 09:48 77 134/76 07/07/19 09:00 Nasal Cannula 2.0 07/07/19 08:00 97.2 77 18 134/76 (95) 97 07/07/19 04:00 97.8 73 16 133/77 (95) 96 07/07/19 00:00 98.6 101 18 143/95 (111) 95 07/06/19 21:00 Nasal Cannula 2.0 07/06/19 20:00 98.5 108 20 150/92 (111) 95 07/06/19 20:00 95 Nasal Cannula 2.0 28 07/06/19 16:00 98.3 76 19 119/81 (94) 98 07/06/19 12:00 96.8 75 20 121/74 (90) 98 Intake and Output 07/07/19 07/08/19 19:00 07:00 Intake Total 43 ml 301 ml Balance 43 ml 301 ml Tube Feeding 43 ml 301 ml # Voids 3 Labs Test 07/06/19 10:15 07/07/19 05:45 Sodium Level 146 MMOL/L (136-145) 146 MMOL/L (136-145) Potassium Level 4.1 MMOL/L (3.5-5.1) 4.3 MMOL/L (3.5-5.1) Chloride Level 106 MMOL/L (98-107) 107 MMOL/L (98-107) Carbon Dioxide Level 36 MMOL/L (21-32) 33 MMOL/L (21-32) Anion Gap 4 mmol/L (5-15) 7 mmol/L (5-15) Blood Urea Nitrogen 25 mg/dL (7-18) 25 mg/dL (7-18) Creatinine 0.8 MG/DL (0.55-1.30) 0.8 MG/DL (0.55-1.30) Estimat Glomerular Filtration Rate > 60 mL/min (>60) > 60 mL/min (>60) Glucose Level 116 MG/DL (74-106) 109 MG/DL (74-106) Calcium Level 9.2 MG/DL (8.5-10.1) 9.3 MG/DL (8.5-10.1) Phosphorus Level 4.1 MG/DL (2.5-4.9) Magnesium Level 2.6 MG/DL (1.8-2.4) Total Bilirubin 0.4 MG/DL (0.2-1.0) 0.5 MG/DL (0.2-1.0) Aspartate Amino Transf (AST/SGOT) 240 U/L (15-37) 238 U/L (15-37) Alanine Aminotransferase (ALT/SGPT) 292 U/L (12-78) 283 U/L (12-78) Alkaline Phosphatase 245 U/L (46-116) 211 U/L (46-116) Total Protein 9.4 G/DL (6.4-8.2) 9.2 G/DL (6.4-8.2) Albumin 2.5 G/DL (3.4-5.0) 2.4 G/DL (3.4-5.0) Globulin 6.9 g/dL 6.8 g/dL Albumin/Globulin Ratio 0.4 (1.0-2.7) 0.4 (1.0-2.7) White Blood Count 9.4 K/UL (4.8-10.8) Red Blood Count 5.08 M/UL (4.70-6.10) Hemoglobin 15.4 G/DL (14.2-18.0) Hematocrit 46.8 % (42.0-52.0) Mean Corpuscular Volume 92 FL (80-99) Mean Corpuscular Hemoglobin 30.4 PG (27.0-31.0) Mean Corpuscular Hemoglobin Concent 33.0 G/DL (32.0-36.0) Red Cell Distribution Width 13.4 % (11.6-14.8) Platelet Count 423 K/UL (150-450) Mean Platelet Volume 5.9 FL (6.5-10.1) Neutrophils (%) (Auto) 67.5 % (45.0-75.0) Lymphocytes (%) (Auto) 22.8 % (20.0-45.0) Monocytes (%) (Auto) 5.9 % (1.0-10.0) Eosinophils (%) (Auto) 3.1 % (0.0-3.0) Basophils (%) (Auto) 0.7 % (0.0-2.0) Height (Feet): 5 Height (Inches): 2.00 Weight (Pounds): 133 Objective Physical Exam General: Awake + confused, no acute distress HEENT: NC/AT. EOMI. ++ngt Cardiovascular: RRR. S1 and S2 normal. No murmur appreciated Resp: Mild tachypnea, normal work of breathing. On 2 L nasal cannula+ Abdomen: Abdomen is soft, nondistended. Nt Skin: Intact. No abrasions, laceration MSK: Normal tone and bulk. Moving all extremities Neuro: Awake and somewhat confused. Poor historian Geraldo Galvez MD July 08, 2019 11:42
--- NOTE | 2019-07-08 12:25 | NUR ---
CASE MANAGEMENT:REVIEW SI;COVID-19 PNEUMONIA~NOW NEGATIVE X2 (07/04 & 07/05) HEP C. CHOLELITHIASIS. ELEVATED LFT's 98.4 79 18 134/74 94% 2L NC FIO2 @ 28% NA 146 CO2 33 BUN 14 AST 238 ALT 283 ALK PHOS 211 ALB 2.1 IS;NORVASC NGT QD ASA NGT QD LOVENOX SUBQ QD TOPROL XL NGT QD MED SURG STATUS DCP;FROM [facility] PLAN;PEG PLACEMENT TODAY
--- NOTE | 2019-07-08 12:38 | Nephrology Progress Note ---
Assessment/Plan Problem List: (1) Dehydration (2) Electrolyte imbalance (3) Elevated LFTs (4) HTN (hypertension) (5) Suspected 2019 novel coronavirus infection Assessment Electrolyte imbalance Dehydration and free water deficit Pneumonia suspected COVID-19 infection Elevated troponin Dementia Cholelithiasis and elevated liver enzymes BPH Hypertension Plan Positive for COVID-19, but it converted to negative Patient is due for PEG today July 07 normal saline 500 cc bolus as needed Watch serum potassium and electrolytes Add Norvasc Hydralazine as needed for blood pressure over 160 systolic Monitor electrolyte Continue per consultants Urine analysis ordered as none is available since admission Per orders Subjective ROS Limited/Unobtainable: No Constitutional: Reports: malaise, weakness Objective Objective Last 24 Hour Vital Signs Date Time Temp Pulse Resp B/P (MAP) Pulse Ox O2 Delivery O2 Flow Rate FiO2 07/08/19 09:00 Nasal Cannula 2.0 07/08/19 09:00 67 126/77 07/08/19 09:00 67 126/77 07/08/19 08:00 98.4 67 17 126/77 (93) 97 07/08/19 07:40 94 Nasal Cannula 2.0 28 07/08/19 04:00 97.2 79 18 134/74 (94) 95 07/08/19 00:00 98.1 76 18 129/76 (93) 97 07/07/19 22:20 Nasal Cannula 2.0 07/07/19 20:11 95 Nasal Cannula 2.0 28 07/07/19 20:00 97.0 80 18 118/78 (91) 95 07/07/19 16:00 96.3 72 18 123/72 (89) 95 Intake and Output 07/07/19 07/08/19 19:00 07:00 Intake Total 43 ml 301 ml Balance 43 ml 301 ml Tube Feeding 43 ml 301 ml # Voids 3 No blood work today Height (Feet): 5 Height (Inches): 2.00 Weight (Pounds): 133 General Appearance: no apparent distress, lethargic EENT: other - Pulled out NG tube Cardiovascular: normal rate Respiratory/Chest: decreased breath sounds Abdomen: soft Objective no change Drew Gonzalez MD July 08, 2019 12:38
[2019-07-08] MEDS ORDERED: cefOXitin 1gm Inj ONE (12:43)
--- NOTE | 2019-07-08 12:46 | NUR ---
NURSE NOTES: Patient left for scheduled procedure to OR in stable condition. ID band on left hand. PIV intact.
[2019-07-08] MEDS ORDERED: NS 500ML IVPB ONE (12:50)
[2019-07-08] MEDS ORDERED: NS 110ml IVPB ONE (12:50)
[2019-07-08] MEDS ORDERED: cefOXitin 1gm Inj IVPB ONE (12:55)
--- NOTE | 2019-07-08 13:16 | Endoscopy Procedure Note ---
Endoscopy Procedure Note General Indication for Procedure: dysphagia Procedures Performed: EGD, PEG Operative Findings/Diagnosis: same Specimen: none Pt Tolerated Procedure Well: Yes Estimated Blood Loss: none Anesthesia Anesthesiologist: sindhu Anesthesia: MAC Inserted Devices Implant(s) used?: No GI Core Measures 50 yrs or older w/o bx or poly: Not Applicable 10yrs. F/U recommended: Not Applicable Perry Quiroga MD July 08, 2019 13:16
--- NOTE | 2019-07-08 13:27 | Anethesia Preoperative Eval ---
Anesthesia Pre-op PMH/ROS General Date of Evaluation: July 08, 2019 Time of Evaluation: 12:40 Anesthesiologist: Jose ASA Score: ASA 3 Mallampati Score Class I : Soft palate, uvula, fauces, pillars visible Class II: Soft palate, uvula, fauces visible Class III: Soft palate, base of uvula visible Class IV: Only hard plate visible Mallampati Classification: Class III Surgeon: Junaid Diagnosis: Dysphagia Surgical Procedure: egd peg Anesthesia History: none Family History: no anesthesia problems Allergies: Coded Allergies: No Known Allergies (Unverified , 06/15/19) Medications: see eMAR Patient NPO?: Yes Past Medical History Cardiovascular: Reports: HTN; Denies: CAD, NE, valve dz, arrhythmia, other Pulmonary: Reports: other - pneumonia; Denies: asthma, COPD, JESUS Gastrointestinal/Genitourinary: Reports: GERD, other - dysphagia; Denies: CRI, ESRD Neurologic/Psychiatric: Reports: dementia; Denies: CVA, depression/anxiety, TIA, other Endocrine: Reports: hypothyroidism; Denies: DM, steroids, other HEENT: Denies: cataract (L), cataract (R), glaucoma, LUMBEE (L), LUMBEE (R), other Hematology/Immune: Reports: anemia - mild; Denies: DVT, bleeding disorder, other Musculoskeletal/Integumentary: Reports: OA Other: other - malnourished PMH Narrative: as above PSxH Narrative: see H&P Anesthesia Pre-op Phys. Exam Physician Exam Last Vital Signs Date Time Temp Pulse Resp B/P (MAP) Pulse Ox O2 Delivery O2 Flow Rate FiO2 07/08/19 12:00 97.6 71 18 121/72 (88) 98 07/08/19 09:00 Nasal Cannula 2.0 07/08/19 07:40 28 Neurologic: other - unable to obtaine Cardiovascular: RRR, no M/R/G Respiratory: CTA Gastrointestinal: S/NT/ND Airway Exam Mallampati Score: Class III MO: limited Neck: stiff ROM: limited Teeth: broken Dentures: no upper, no lower Anesthesia Pre-op A/P Labs see chart Risk Assessment & Plan Assessment: ASA 4 Plan: MAC Status Change Before Surgery: No Pre-Antibiotics Drug: Cefoxitin 1gr. Given Within 1 Hr of Incision: Yes Time Given: 13:05 Gonsalo Garcia MD July 08, 2019 13:27
--- NOTE | 2019-07-08 13:29 | Immediate Post-Op Evaluation ---
Immediate Post-Op Evalulation Immediate Post-Op Evalulation Procedure: EGD Peg tube placement Date of Evaluation: July 08, 2019 Time of Evaluation: 13:28 IV Fluids: 200 Blood Products: none Estimated Blood Loss: none Urinary Output: none Blood Pressure Systolic: 126 Blood Pressure Diastolic: 76 Pulse Rate: 72 Respiratory Rate: 20 O2 Sat by Pulse Oximetry: 98 Temperature (Fahrenheit): 97.6 Pain Score (1-10): 1 Nausea: No Vomiting: No Complications none Patient Status: reacts, patent, none Hydration Status: adequate Gonsalo Garcia MD July 08, 2019 13:29
--- NOTE | 2019-07-08 13:31 | 48 Hour Post Anesthesia Eval ---
Post Anesthesia Evaluation Procedure: EGD Peg tube placement Date of Evaluation: July 08, 2019 Time of Evaluation: 14:10 Blood Pressure Systolic: 137 0: 36 Pulse Rate: 72 Respiratory Rate: 20 Temperature (Fahrenheit): 97.5 O2 Sat by Pulse Oximetry: 98 Airway: patent Nausea: No Vomiting: No Pain Intensity: 1 Hydration Status: adequate Cardiopulmonary Status: stable Mental Status/LOC: patient returned to baseline Follow-up Care/Observations: n/a Post-Anesthesia Complications: none Follow-up care needed: ready to discharge Gonsalo Garcia MD July 08, 2019 13:31
--- NOTE | 2019-07-08 14:00 | NUR ---
NURSE NOTES: Patient returned from OR in stable condition. Abdominal binder intact. Received orders to start on GT feeding till goal of 43ml/hr reached.
--- NOTE | 2019-07-08 14:18 | NUR ---
DISCHARGE PLANNING CALL RECEIVED FROM IRENA AT [facility]. INFORMED CM PATIENT ACCEPTED TO RETURN UPON DISCHARGE WITH BED ASSIGNMENT 414-B SKILLED WEEKEND RN TO COORDINATE TRANSFER TO [facility] WITH [facility] WHEN ORDER FOR DISCHARGE IS PLACED AND CALL [facility] AT [phone] FOR NURSE TO NURSE REPORT ABOVE INFORMATION PROVIDED TO MANOLO MITCHELL CHARGE NURSE. HE WILL ENDORSE.
--- NOTE | 2019-07-08 16:40 | General Progress Note ---
Assessment/Plan Problem List: (1) Elevated troponin ICD Codes: R79.89 - Other specified abnormal findings of blood chemistry SNOMED: 535092810, 946562578, 114411372 (2) Elevated LFTs ICD Codes: R79.89 - Other specified abnormal findings of blood chemistry SNOMED: 165486924, 266780450, 272441714 (3) Pneumonia ICD Codes: J18.9 - Pneumonia, unspecified organism SNOMED: 404199003, 960504368, 449872038 (4) Suspected 2019 novel coronavirus infection ICD Codes: R68.89 - Other general symptoms and signs SNOMED: 026711712 Status: progressing, unchanged Assessment/Plan: repeat covid came negative azotemia s/p peg per gi dr elevated lft malnutrtition resp insuff awai Subjective ROS Limited/Unobtainable: Yes Allergies: Coded Allergies: No Known Allergies (Unverified , 06/15/19) Objective Last 24 Hour Vital Signs Date Time Temp Pulse Resp B/P (MAP) Pulse Ox O2 Delivery O2 Flow Rate FiO2 07/08/19 13:31 72 20 98 07/08/19 13:30 97.7 77 16 127/78 99 Nasal Cannula 3 07/08/19 13:29 72 20 98 07/08/19 13:20 68 17 138/72 99 Nasal Cannula 3 07/08/19 13:16 97.7 74 24 145/90 99 Nasal Cannula 3 07/08/19 12:00 97.6 71 18 121/72 (88) 98 07/08/19 09:00 Nasal Cannula 2.0 07/08/19 09:00 67 126/77 07/08/19 09:00 67 126/77 07/08/19 08:00 98.4 67 17 126/77 (93) 97 07/08/19 07:40 94 Nasal Cannula 2.0 28 07/08/19 04:00 97.2 79 18 134/74 (94) 95 07/08/19 00:00 98.1 76 18 129/76 (93) 97 07/07/19 22:20 Nasal Cannula 2.0 07/07/19 20:11 95 Nasal Cannula 2.0 28 07/07/19 20:00 97.0 80 18 118/78 (91) 95 Intake and Output 07/07/19 07/08/19 19:00 07:00 Intake Total 43 ml 301 ml Balance 43 ml 301 ml Tube Feeding 43 ml 301 ml # Voids 3 Height (Feet): 5 Height (Inches): 2 Weight (Pounds): 133 Gorge Malhotra MD July 08, 2019 16:40
--- NOTE | 2019-07-08 19:32 | NUR ---
HAND-OFF: Report given to Denis FRENCH. Gtube feeding tolerated. Started at 10cc/hr at 2pm and then increased to 20cc/hr at 6pm, no residual or abdominal distention noted. Abdominal binder on. HOB elevated at 45 degrees.
--- NOTE | 2019-07-08 20:00 | NUR ---
NURSE NOTES: Patient received in bed, aox1, calm at this time. GT feeding running at 20cc/hr with 20cc of residual. Abdominal binder on. HOB elevated. Aspiration precautions. Bilat soft wrist restraints applied, no swelling, pulses and sensations present, skin intact. Bed locked in low position, will continue to monitor.
[2019-07-08] MEDS: Miralax 17gm pkt ORAL SCH (20:06)
--- NOTE | 2019-07-08 20:44 | Procedure Note ---
DATE OF PROCEDURE: 07/08/2019 SURGEON: Perry Quiroga MD. PROCEDURE: Upper endoscopy with PEG placement. ANESTHESIA: Per Dr. Garcia. INDICATION: Dysphagia. REASON FOR PROCEDURE: The procedure, risks, benefits, and possible consequences, including hemorrhage, aspiration, perforation and infection, and alternative treatments, were explained to the patient/legal guardian by Dr. Perry Quiroga and the patient/legal guardian understood and accepted these risks. DESCRIPTION OF PROCEDURE: After informed consent was obtained and patient was adequately sedated, Olympus upper endoscope was advanced from mouth into the second portion of duodenum and retroflexion was performed in the stomach. Patient has diffuse gastritis. Under endoscopic guidance, under sterile condition, a 20-Chinese pull type of G-tube was successfully placed in epigastric area. The distance from the tip of the tube to skin was about 3 cm in size. Patient tolerated the procedure without any complication. SUMMARY OF FINDINGS: Status post successful PEG placement. RECOMMENDATIONS: 1. Abdominal binder. 2. Elevate the head of the bed at all times. 3. G-tube flush. 4. G-tube care. 5. Start tube feeding later today. I want to thank Dr. Gorge Malhotra for this kind referral. Perry Quiroga M.D. DR: CHRISTIANO JOB#: [id number] CC: Gorge Malhotra M.D.; Fax#: [phone]
--- NOTE | 2019-07-08 23:11 | Pulmonology Progress Note ---
Subjective ROS Limited/Unobtainable: No Constitutional: Denies: fever Respiratory: Reports: shortness of breath Allergies: Coded Allergies: No Known Allergies (Unverified , 06/15/19) All Systems: reviewed and negative except above Objective Last 24 Hour Vital Signs Date Time Temp Pulse Resp B/P (MAP) Pulse Ox O2 Delivery O2 Flow Rate FiO2 07/08/19 21:00 Nasal Cannula 2.0 07/08/19 20:00 98.2 99 18 102/69 (80) 96 07/08/19 16:00 98.0 80 18 125/79 (94) 98 07/08/19 13:31 72 20 98 07/08/19 13:30 97.7 77 16 127/78 99 Nasal Cannula 3 07/08/19 13:29 72 20 98 07/08/19 13:20 68 17 138/72 99 Nasal Cannula 3 07/08/19 13:16 97.7 74 24 145/90 99 Nasal Cannula 3 07/08/19 12:00 97.6 71 18 121/72 (88) 98 07/08/19 09:00 Nasal Cannula 2.0 07/08/19 09:00 67 126/77 07/08/19 09:00 67 126/77 07/08/19 08:00 98.4 67 17 126/77 (93) 97 07/08/19 07:40 94 Nasal Cannula 2.0 28 07/08/19 04:00 97.2 79 18 134/74 (94) 95 07/08/19 00:00 98.1 76 18 129/76 (93) 97 Intake and Output 07/07/19 07/08/19 19:00 07:00 Intake Total 43 ml 301 ml Balance 43 ml 301 ml Tube Feeding 43 ml 301 ml # Voids 3 General Appearance: no acute distress HEENT: mucous membranes moist Abdomen: soft, non tender, other - NG tube Extremities: no edema Neurologic/Psychiatric: disoriented Microbiology Date/Time Source Procedure Growth Status 07/06/19 15:00 Nasopharynx Coronavirus COVID-19 PCR ([facility]) - Final Complete Current Medications Medications (Trade) Dose Ordered Sig/Kaylan Route PRN Reason Start Time Stop Time Status Last Admin Dose Admin Acetaminophen (Tylenol) 500 mg Q6H PRN ORAL For Pain 06/29/19 18:15 07/16/19 00:14 07/01/19 09:11 Acetaminophen (Tylenol) 650 mg Q6H PRN ORAL For Headache 06/29/19 18:00 07/16/19 17:59 Albuterol Sulfate (Proventil MDI) 2 puff Q6H PRN INH Shortness of Breath 06/29/19 18:00 09/14/19 17:59 Amlodipine Besylate (Norvasc) 5 mg DAILY NG 06/30/19 09:00 07/23/19 11:59 07/07/19 09:48 Aspirin (ASA) 81 mg DAILY ORAL 06/30/19 09:00 07/31/19 08:59 07/07/19 09:48 Docusate Sodium (Colace) 100 mg DAILY ORAL 06/30/19 09:00 07/16/19 08:59 07/07/19 09:49 Enoxaparin Sodium (Lovenox) 40 mg DAILY SUBQ 06/30/19 09:00 09/14/19 08:59 07/07/19 09:54 Hydralazine HCl (Apresoline) 25 mg Q4H PRN ORAL SBP > 160mmHg 06/29/19 17:30 09/20/19 13:29 Metoprolol Succinate (Toprol XL) 25 mg DAILY ORAL 06/30/19 09:00 09/17/19 19:14 07/07/19 09:49 Mirtazapine (Remeron) 15 mg BEDTIME ORAL 06/29/19 21:00 09/19/19 20:59 07/08/19 20:06 Ondansetron HCl (Zofran) 4 mg Q6H PRN IVP Nausea & Vomiting 06/29/19 18:00 07/16/19 17:59 Polyethylene Glycol (Miralax) 17 gm BEDTIME ORAL 06/29/19 21:00 07/17/19 20:59 07/08/19 20:06 Assessment/Plan Assessment/Plan Pulmonary Progress Note HPI: Patient is a 88-year-old male history of Dementia, Congestive Heart Failure , admitted from group home facility with Pneumonia, COVID 19 positive, noted to have fever and shortness of breath, chest congestion and tightness. Stable O2 requirements - 2L NC, stable Pulmonary Status clinically, Covid isolation Sp G tube Seen earlier PMH: Dementia, Congestive Heart Failure Social Hx: Fpc Resident FHx: NC Allergies: No Known Allergies All Other Systems: limited - AMS Physical Exam Vital signs noted General: Awake and somewhat confused, no acute distress HEENT: NC/AT. EOMI. Cardiovascular: RRR. S1 and S2 normal. No murmur appreciated Resp: Mild tachypnea, normal work of breathing. On 2 L nasal cannula. No cough Abdomen: Abdomen is soft, nondistended. Nontender. G tube Skin: Intact. No abrasions, laceration or rash noted MSK: Normal tone and bulk. Moving all extremities. No obvious deformity. Neuro: Awake and somewhat confused. Poor historian. No focal signs Impression: Pneumonia Suspected 2019 novel coronavirus infection Elevated troponin, myonecrosis suspected Hepatitis C Elevated LFTs Lymphopenia Dementia Congestive Heart Failure Fpc Resident Plan Antibiotics/antivirals per ID O2 PRN Albuterol MDI PRN PPX - Lovenox ASA Monitor labs - hypokalemia - s/p supplementation Monitor cultures/viral studies Ultrasound of the abdomen pending. Isolation for suspected COVID-19 infection Laboratory Tests noted EKG Rate: normal Rhythm: NSR ST Segments: no acute changes Sinus rhythm, left axis deviation. Occasional PACs. T wave inversions, no ST segment changes Chest X-Ray: Consolidations in the left lower lobe may represent an early pneumonia. No effusion. Current CXR slight worsening of infiltrates . Andrew Diaz MD July 08, 2019 23:11
--- NOTE | 2019-07-08 23:30 | NUR ---
NURSE NOTES: Rechecked TF residual. Patient still has 50cc of residual, running 20cc/hr. Cannot advance rate at this time, will continue to recheck and monitor. HOB elevated at all times.
[2019-07-09 04:00] VITALS: BP 101/75
--- NOTE | 2019-07-09 04:00 | Progress Note ---
DATE: 07/08/2019 SUBJECTIVE: Patient is the same, calm, manageable. Has G-tube feeding. On bilateral soft restraints. MENTAL STATUS EXAMINATION: Alert, oriented times self. Mood is neutral. Affect is flat. Thought process is concrete. Thought content, no suicidal or homicidal ideation. Cognition is impaired. Insight and judgment is impaired. ASSESSMENT: Dementia with behavior disturbance. PLAN: 1. Continue bilateral restraints. 2. PRN medication. Karlo Santiago M.D. DR: YING JOB#: [id number] CC:
--- NOTE | 2019-07-09 07:36 | NUR ---
HAND-OFF: Report given to Trell FRENCH.
--- NOTE | 2019-07-09 07:40 | NUR ---
NURSE NOTES: Received patient in bed, arousable to name. Breathing is even and unlabored with oxygen 22L/min via NC. GT is intact and patent,no visible bleeding from GT dressing. Abdominal binder is on , no abdominal distention noted. Residual is 30cc with the rate of 30cc/hr. Will continue to monitor. IV on right forearm is intact and patent,no s/s of infiltration. HOB elevated. Heels are on pillow to off the load. On bilateral soft restraints without no skin break or bruise. Pulses present. Will continue plan of care.
[2019-07-09 08:00] VITALS: BP 152/105
[2019-07-09] MEDS: Docusate 100mg cap ORAL SCH (08:35)
[2019-07-09] MEDS: Metoprolol Succinate XL 25mg tab ORAL SCH (08:35)
[2019-07-09] MEDS: Aspirin Baby 81mg ORAL SCH (08:35)
[2019-07-09] MEDS: Enoxaparin 40mg Inj SUBQ SCH (08:36)
--- NOTE | 2019-07-09 09:50 | NUR ---
NURSE NOTES: Transferred patient to 3E. Report given to Gregorio Abreu and endorsed plan of care. Prior to transfer, V/S was stable. Proper incontinent care done, no skin issue. No pressure sore on sacral and heels. Applied optifoams on sacral and bilateral heels for prophylaxis. IV is intact, no s/s of infiltration. GT intact, changed GT dressing,no blood or discharge. Patient has no belongings. Restraints in place. GT residual was 25. Endorsed 3E RN to discharge patient when patient is tolerating with GT feeding and when received discharge order.
--- NOTE | 2019-07-09 11:00 | NUR ---
NURSE NOTES: increase feeding from 30 to 43ml/hr. checked residual noted 5ml. reported BOARD DESIGN ENGINEER Kohi. order received increase 55ml after 5 hours if there is residual <100
[2019-07-09 12:00] VITALS: BP 127/77
--- NOTE | 2019-07-09 12:25 | Nephrology Progress Note ---
Assessment/Plan Problem List: (1) Dehydration (2) Electrolyte imbalance (3) Elevated LFTs (4) HTN (hypertension) (5) Suspected 2019 novel coronavirus infection Assessment Electrolyte imbalance Dehydration and free water deficit Pneumonia suspected COVID-19 infection Elevated troponin Dementia Cholelithiasis and elevated liver enzymes BPH Hypertension Plan Had PEG placed July 07 No blood work today will check tomorrow Medication list reviewed Positive for COVID-19, but it converted to negative normal saline 500 cc bolus as needed Watch serum potassium and electrolytes Add Norvasc Hydralazine as needed for blood pressure over 160 systolic Monitor electrolyte Continue per consultants Urine analysis ordered as none is available since admission Per orders Subjective ROS Limited/Unobtainable: No Constitutional: Reports: malaise Objective Objective Last 24 Hour Vital Signs Date Time Temp Pulse Resp B/P (MAP) Pulse Ox O2 Delivery O2 Flow Rate FiO2 07/09/19 12:00 98.6 79 19 127/77 (94) 95 79 79 07/09/19 08:51 Nasal Cannula 2.0 07/09/19 08:35 81 152/105 07/09/19 08:35 81 152/105 07/09/19 08:00 98.1 81 18 152/105 (121) 95 07/09/19 04:00 98.7 90 18 101/75 (84) 95 07/09/19 00:31 97 Nasal Cannula 2.0 28 07/08/19 23:20 97.9 92 18 113/74 (87) 97 07/08/19 21:00 Nasal Cannula 2.0 07/08/19 20:00 98.2 99 18 102/69 (80) 96 07/08/19 16:00 98.0 80 18 125/79 (94) 98 07/08/19 13:31 72 20 98 07/08/19 13:30 97.7 77 16 127/78 99 Nasal Cannula 3 07/08/19 13:29 72 20 98 07/08/19 13:20 68 17 138/72 99 Nasal Cannula 3 07/08/19 13:16 97.7 74 24 145/90 99 Nasal Cannula 3 Intake and Output 07/08/19 07/09/19 19:00 07:00 Intake Total 200 ml 380 ml Balance 200 ml 380 ml Free Water 140 ml IV Total 130 ml Tube Feeding 70 ml 240 ml # Bowel Movements 1 No labs drawn today Height (Feet): 5 Height (Inches): 2 Weight (Pounds): 133 General Appearance: lethargic Cardiovascular: tachycardia - Slightly Respiratory/Chest: decreased breath sounds Abdomen: soft, other - PEG in place Objective no change Drew Gonzalez MD July 09, 2019 12:25
--- NOTE | 2019-07-09 15:49 | GI Progress Note ---
Assessment/Plan Problems: (1) Elevated LFTs ICD Codes: R79.89 - Other specified abnormal findings of blood chemistry SNOMED: 814848378, 135040532, 183422833 (2) Dehydration ICD Codes: E86.0 - Dehydration SNOMED: 12301515 (3) Suspected 2019 novel coronavirus infection ICD Codes: R68.89 - Other general symptoms and signs SNOMED: 328811294 (4) Pneumonia ICD Codes: J18.9 - Pneumonia, unspecified organism SNOMED: 137836729, 331456934, 275923138 (5) Electrolyte imbalance ICD Codes: E87.8 - Other disorders of electrolyte and fluid balance, not elsewhere classified SNOMED: 622756270 Status: stable Status Narrative Discussed with Dr. Quiroga. Assessment/Plan 1. History of dementia. 2. CHF. 3. Hypertension. 4. BPH. 5. Constipation. 6. elevated LFTS 7. AMI 8. 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 I agree with the above findings, impression and plan. (Patient seen earlier today. Signature stamp does not reflect patient encounter time.). - Perry Quiroga MD Subjective Subjective limited Objective Last 24 Hour Vital Signs Date Time Temp Pulse Resp B/P (MAP) Pulse Ox O2 Delivery O2 Flow Rate FiO2 07/09/19 12:00 98.6 79 19 127/77 (94) 95 79 79 07/09/19 08:51 Nasal Cannula 2.0 07/09/19 08:35 81 152/105 07/09/19 08:35 81 152/105 07/09/19 08:00 98.1 81 18 152/105 (121) 95 07/09/19 04:00 98.7 90 18 101/75 (84) 95 07/09/19 00:31 97 Nasal Cannula 2.0 28 07/08/19 23:20 97.9 92 18 113/74 (87) 97 07/08/19 21:00 Nasal Cannula 2.0 07/08/19 20:00 98.2 99 18 102/69 (80) 96 07/08/19 16:00 98.0 80 18 125/79 (94) 98 Intake and Output 07/08/19 07/09/19 19:00 07:00 Intake Total 200 ml 380 ml Balance 200 ml 380 ml Free Water 140 ml IV Total 130 ml Tube Feeding 70 ml 240 ml # Bowel Movements 1 Height (Feet): 5 Height (Inches): 2 Weight (Pounds): 133 General Appearance: WD/WN, no apparent distress, alert Cardiovascular: normal rate Respiratory/Chest: no respiratory distress Abdominal Exam: normal bowel sounds, non tender, soft, GT site Extremities: non-tender Rishi Patricio [employer]OKER ASSOCIATE July 09, 2019 15:49
[2019-07-09 16:00] VITALS: BP 129/72
--- NOTE | 2019-07-09 16:38 | General Progress Note ---
Assessment/Plan Problem List: (1) Elevated troponin ICD Codes: R79.89 - Other specified abnormal findings of blood chemistry SNOMED: 437304727, 481104689, 154513901 (2) Elevated LFTs ICD Codes: R79.89 - Other specified abnormal findings of blood chemistry SNOMED: 697206429, 507493901, 860703899 (3) Pneumonia ICD Codes: J18.9 - Pneumonia, unspecified organism SNOMED: 659649057, 729079477, 430021777 (4) Suspected 2019 novel coronavirus infection ICD Codes: R68.89 - Other general symptoms and signs SNOMED: 988935988 Status: stable Assessment/Plan: repeat covid came negative azotemia s/p peg per gi dr elevated lft malnutrtition no wheezing malnutrition Subjective ROS Limited/Unobtainable: Yes Allergies: Coded Allergies: No Known Allergies (Unverified , 06/15/19) Objective Last 24 Hour Vital Signs Date Time Temp Pulse Resp B/P (MAP) Pulse Ox O2 Delivery O2 Flow Rate FiO2 07/09/19 12:00 98.6 79 19 127/77 (94) 95 79 79 07/09/19 08:51 Nasal Cannula 2.0 07/09/19 08:35 81 152/105 07/09/19 08:35 81 152/105 07/09/19 08:00 98.1 81 18 152/105 (121) 95 07/09/19 04:00 98.7 90 18 101/75 (84) 95 07/09/19 00:31 97 Nasal Cannula 2.0 28 07/08/19 23:20 97.9 92 18 113/74 (87) 97 07/08/19 21:00 Nasal Cannula 2.0 07/08/19 20:00 98.2 99 18 102/69 (80) 96 Intake and Output 07/08/19 07/09/19 19:00 07:00 Intake Total 200 ml 380 ml Balance 200 ml 380 ml Free Water 140 ml IV Total 130 ml Tube Feeding 70 ml 240 ml # Bowel Movements 1 Height (Feet): 5 Height (Inches): 2 Weight (Pounds): 133 Gorge Malhotra MD July 09, 2019 16:37
--- NOTE | 2019-07-09 17:00 | NUR ---
NURSE NOTES: checked residual 10ml noted increased to 55ml/hr
--- NOTE | 2019-07-09 19:40 | NUR ---
NURSE NOTES: Received report form RN Gregorio , rounds made , pt stable denies any pain, i.v site on R hand 22G , no iv fluids , Gtube feeding Glucerna going at 55 Ml /hr, no s/s distress , soft restraints on bilateral arms, with s/s good circulation bed in low locked position , call light with in reach , will continue with plan of care
--- NOTE | 2019-07-09 19:40 | NUR ---
HAND-OFF: Report given to MANOLO Crouch, pt is stable condition.
[2019-07-09 20:00] VITALS: BP 130/84
--- NOTE | 2019-07-09 20:58 | Pulmonology Progress Note ---
Subjective ROS Limited/Unobtainable: No Constitutional: Denies: fever Respiratory: Reports: shortness of breath Allergies: Coded Allergies: No Known Allergies (Unverified , 06/15/19) All Systems: reviewed and negative except above Objective Last 24 Hour Vital Signs Date Time Temp Pulse Resp B/P (MAP) Pulse Ox O2 Delivery O2 Flow Rate FiO2 07/09/19 16:00 98.0 85 19 129/72 (91) 96 79 79 07/09/19 12:00 98.6 79 19 127/77 (94) 95 79 79 07/09/19 08:51 Nasal Cannula 2.0 07/09/19 08:35 81 152/105 07/09/19 08:35 81 152/105 07/09/19 08:00 98.1 81 18 152/105 (121) 95 07/09/19 04:00 98.7 90 18 101/75 (84) 95 07/09/19 00:31 97 Nasal Cannula 2.0 28 07/08/19 23:20 97.9 92 18 113/74 (87) 97 07/08/19 21:00 Nasal Cannula 2.0 Intake and Output 07/08/19 07/09/19 19:00 07:00 Intake Total 200 ml 380 ml Balance 200 ml 380 ml Free Water 140 ml IV Total 130 ml Tube Feeding 70 ml 240 ml # Bowel Movements 1 General Appearance: no acute distress HEENT: mucous membranes moist Abdomen: soft, non tender, other - NG tube Extremities: no edema Neurologic/Psychiatric: disoriented Current Medications Medications (Trade) Dose Ordered Sig/Kaylan Route PRN Reason Start Time Stop Time Status Last Admin Dose Admin Acetaminophen (Tylenol) 500 mg Q6H PRN ORAL For Pain 06/29/19 18:15 07/16/19 00:14 07/01/19 09:11 Acetaminophen (Tylenol) 650 mg Q6H PRN ORAL For Headache 06/29/19 18:00 07/16/19 17:59 Albuterol Sulfate (Proventil MDI) 2 puff Q6H PRN INH Shortness of Breath 06/29/19 18:00 09/14/19 17:59 Amlodipine Besylate (Norvasc) 5 mg DAILY NG 06/30/19 09:00 07/23/19 11:59 07/09/19 08:35 Aspirin (ASA) 81 mg DAILY ORAL 06/30/19 09:00 07/31/19 08:59 07/09/19 08:35 Docusate Sodium (Colace) 100 mg DAILY ORAL 06/30/19 09:00 07/16/19 08:59 07/09/19 08:35 Enoxaparin Sodium (Lovenox) 40 mg DAILY SUBQ 06/30/19 09:00 09/14/19 08:59 07/09/19 08:36 Hydralazine HCl (Apresoline) 25 mg Q4H PRN ORAL SBP > 160mmHg 06/29/19 17:30 09/20/19 13:29 Metoprolol Succinate (Toprol XL) 25 mg DAILY ORAL 06/30/19 09:00 09/17/19 19:14 07/09/19 08:35 Mirtazapine (Remeron) 15 mg BEDTIME ORAL 06/29/19 21:00 09/19/19 20:59 07/08/19 20:06 Ondansetron HCl (Zofran) 4 mg Q6H PRN IVP Nausea & Vomiting 06/29/19 18:00 07/16/19 17:59 Polyethylene Glycol (Miralax) 17 gm BEDTIME ORAL 06/29/19 21:00 07/17/19 20:59 07/08/19 20:06 Assessment/Plan Assessment/Plan Pulmonary Progress Note HPI: Patient is a 88-year-old male history of Dementia, Congestive Heart Failure , admitted from [facility] facility with Pneumonia, COVID 19 positive, noted to have fever and shortness of breath, chest congestion and tightness. Stable O2 requirements - 2L NC, stable Pulmonary Status clinically, Covid isolation Sp G tube, tolerating feeds Seen earlier PMH: Dementia, Congestive Heart Failure Social Hx: Shelter Resident FHx: NC Allergies: No Known Allergies All Other Systems: limited - AMS Physical Exam Vital signs noted General: Awake and somewhat confused, no acute distress HEENT: NC/AT. EOMI. Cardiovascular: RRR. S1 and S2 normal. No murmur appreciated Resp: Mild tachypnea, normal work of breathing. On 2 L nasal cannula. No cough Abdomen: Abdomen is soft, nondistended. Nontender. G tube Skin: Intact. No abrasions, laceration or rash noted MSK: Normal tone and bulk. Moving all extremities. No obvious deformity. Neuro: Awake and somewhat confused. Poor historian. 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 Isolation for suspected COVID-19 infection Laboratory Tests noted EKG Rate: normal Rhythm: NSR ST Segments: no acute changes Sinus rhythm, left axis deviation. Occasional PACs. T wave inversions, no ST segment changes Chest X-Ray: Consolidations in the left lower lobe may represent an early pneumonia. No effusion. Current CXR slight worsening of infiltrates . Andrew Diaz MD July 09, 2019 20:58
[2019-07-09] MEDS: Miralax 17gm pkt ORAL SCH (21:00)
--- NOTE | 2019-07-09 22:39 | Psych Consult Progress Note ---
Psychiatry Progress Note Psychiatry Progress Note Medications Current Medications Medications (Trade) Dose Ordered Sig/Kaylan Route PRN Reason Start Time Stop Time Status Last Admin Dose Admin Acetaminophen (Tylenol) 500 mg Q6H PRN ORAL For Pain 06/29/19 18:15 07/16/19 00:14 07/01/19 09:11 Acetaminophen (Tylenol) 650 mg Q6H PRN ORAL For Headache 06/29/19 18:00 07/16/19 17:59 Albuterol Sulfate (Proventil MDI) 2 puff Q6H PRN INH Shortness of Breath 06/29/19 18:00 09/14/19 17:59 Amlodipine Besylate (Norvasc) 5 mg DAILY NG 06/30/19 09:00 07/23/19 11:59 07/09/19 08:35 Aspirin (ASA) 81 mg DAILY ORAL 06/30/19 09:00 07/31/19 08:59 07/09/19 08:35 Docusate Sodium (Colace) 100 mg DAILY ORAL 06/30/19 09:00 07/16/19 08:59 07/09/19 08:35 Enoxaparin Sodium (Lovenox) 40 mg DAILY SUBQ 06/30/19 09:00 09/14/19 08:59 07/09/19 08:36 Hydralazine HCl (Apresoline) 25 mg Q4H PRN ORAL SBP > 160mmHg 06/29/19 17:30 09/20/19 13:29 Metoprolol Succinate (Toprol XL) 25 mg DAILY ORAL 06/30/19 09:00 09/17/19 19:14 07/09/19 08:35 Mirtazapine (Remeron) 15 mg BEDTIME ORAL 06/29/19 21:00 09/19/19 20:59 07/09/19 21:09 Ondansetron HCl (Zofran) 4 mg Q6H PRN IVP Nausea & Vomiting 06/29/19 18:00 07/16/19 17:59 Polyethylene Glycol (Miralax) 17 gm BEDTIME ORAL 06/29/19 21:00 07/17/19 20:59 07/08/19 20:06 Neurological/Psychiatric: Reports: anxiety, emotional problems Allergies: Coded Allergies: No Known Allergies (Unverified , 06/15/19) Objective Data Height (Feet): 5 Height (Inches): 2 Weight (Pounds): 133 General Appearance: no apparent distress, alert Additional Comments: oriented times self. Mood is neutral. Affect is flat. Thought process is concrete. Thought content, no suicidal or homicidal ideation. Cognition is impaired. Insight and judgment is impaired. ASSESSMENT: Dementia with behavior disturbance. PLAN: 1. Continue bilateral restraints. 2. PRN medication. Assessment/Plan Status: stable Assessment/Plan: PLAN: 1. Remeron 15 mg at night. 3.nemanda was dced 4. Discussed with the nurse. Karlo Santiago MD July 09, 2019 22:39
--- NOTE | 2019-07-09 23:00 | NUR ---
NURSE Gt tube residual checked as ordered and its 10cc, will continue to monitor
[2019-07-10] VITALS: BP 117/75
[2019-07-10 04:00] VITALS: BP 140/75
[2019-07-10 06:46] LABS: BASOPHILS % (AUTO) 0.6 % (0.0-2.0); EOSINOPHILS % (AUTO) 0.4 % (0.0-3.0); HEMATOCRIT 44.4 % (42.0-52.0); HEMOGLOBIN 14.7 G/DL (14.2-18.0); LYMPHOCYTES % (AUTO) 16.4 % (20.0-45.0); MEAN CORPUSCULAR VOLUME 92 FL (80-99); MONOCYTES % (AUTO) 5.7 % (1.0-10.0); NEUTROPHILS % (AUTO) 76.8 % (45.0-75.0); PLATELET COUNT 368 K/UL (150-450); RED BLOOD COUNT 4.83 M/UL (4.70-6.10); RED CELL DISTRIBUTION WIDTH 13.8 % (11.6-14.8); WHITE BLOOD COUNT 14.1 K/UL (4.8-10.8)
[2019-07-10 06:48] LABS: ALANINE AMINOTRANSFERASE 207 U/L (12-78); ALBUMIN 2.3 G/DL (3.4-5.0); ALBUMIN/GLOBULIN RATIO 0.3 (1.0-2.7); ALKALINE PHOSPHATASE 235 U/L (46-116); ANION GAP 6 mmol/L (5-15); ASPARTATE AMINO TRANSFERASE 134 U/L (15-37); BILIRUBIN,TOTAL 0.4 MG/DL (0.2-1.0); BLOOD UREA NITROGEN 28 mg/dL (7-18); CALCIUM 8.9 MG/DL (8.5-10.1); CARBON DIOXIDE 34 MMOL/L (21-32); CHLORIDE 111 MMOL/L (98-107); CREATININE 0.9 MG/DL (0.55-1.30); PHOSPHORUS 3.3 MG/DL (2.5-4.9); POTASSIUM 3.8 MMOL/L (3.5-5.1); SODIUM 151 MMOL/L (136-145)
--- NOTE | 2019-07-10 07:25 | NUR ---
HAND-OFF: Report given to Ramy FRENCH, pt adrien.
--- NOTE | 2019-07-10 07:27 | NUR ---
NURSE NOTES: Handoff received from Miko FRENCH, Addendum: 07/10/19 at 0759 by Ramy Heredia RN RN Patient is asleep no signs of distress noted. Patient is in AKIL soft wrist restraints. G tube is running glucerna 1.5 at 55 as ordered. IV is patent and asymptomatic. Bed is in low and locked position, side rails up x2, call light is within reach.
[2019-07-10 08:00] VITALS: BP 129/82
[2019-07-10] MEDS: Docusate 100mg cap ORAL SCH (09:00)
--- NOTE | 2019-07-10 09:35 | Nephrology Progress Note ---
Assessment/Plan Problem List: (1) Dehydration (2) Electrolyte imbalance (3) Elevated LFTs (4) HTN (hypertension) (5) Suspected 2019 novel coronavirus infection Assessment Electrolyte imbalance Dehydration and free water deficit Pneumonia suspected COVID-19 infection Elevated troponin Dementia Cholelithiasis and elevated liver enzymes BPH Hypertension Plan D5W 500 cc bolus today Continue rest Had PEG placed July 07 No blood work today will check tomorrow Medication list reviewed Positive for COVID-19, but it converted to negative normal saline 500 cc bolus as needed Watch serum potassium and electrolytes Add Norvasc Hydralazine as needed for blood pressure over 160 systolic Monitor electrolyte Continue per consultants Urine analysis ordered as none is available since admission Per orders Subjective ROS Limited/Unobtainable: No Constitutional: Reports: malaise, weakness Objective Objective Last 24 Hour Vital Signs Date Time Temp Pulse Resp B/P (MAP) Pulse Ox O2 Delivery O2 Flow Rate FiO2 07/10/19 08:00 97.7 82 17 129/82 (98) 97 82 82 07/10/19 04:00 98.1 75 18 140/75 (96) 96 07/10/19 00:00 97.8 86 18 117/75 (89) 95 07/09/19 21:00 Nasal Cannula 2.0 07/09/19 20:00 98.6 85 19 130/84 (99) 95 77 79 07/09/19 16:00 98.0 85 19 129/72 (91) 96 79 79 07/09/19 12:00 98.6 79 19 127/77 (94) 95 79 79 Intake and Output 07/09/19 07/10/19 19:00 07:00 Intake Total 158 ml 55 ml Balance 158 ml 55 ml Tube Feeding 158 ml 55 ml # Voids 3 # Bowel Movements 1 1 Current Medications Medications (Trade) Dose Ordered Sig/Kaylan Route PRN Reason Start Time Stop Time Status Last Admin Dose Admin Acetaminophen (Tylenol) 500 mg Q6H PRN ORAL For Pain 06/29/19 18:15 07/16/19 00:14 07/01/19 09:11 Acetaminophen (Tylenol) 650 mg Q6H PRN ORAL For Headache 06/29/19 18:00 07/16/19 17:59 Albuterol Sulfate (Proventil MDI) 2 puff Q6H PRN INH Shortness of Breath 06/29/19 18:00 09/14/19 17:59 Amlodipine Besylate (Norvasc) 5 mg DAILY NG 06/30/19 09:00 07/23/19 11:59 07/09/19 08:35 Aspirin (ASA) 81 mg DAILY ORAL 06/30/19 09:00 07/31/19 08:59 07/09/19 08:35 Docusate Sodium (Colace) 100 mg DAILY ORAL 06/30/19 09:00 07/16/19 08:59 07/09/19 08:35 Enoxaparin Sodium (Lovenox) 40 mg DAILY SUBQ 06/30/19 09:00 09/14/19 08:59 07/09/19 08:36 Hydralazine HCl (Apresoline) 25 mg Q4H PRN ORAL SBP > 160mmHg 06/29/19 17:30 09/20/19 13:29 Metoprolol Succinate (Toprol XL) 25 mg DAILY ORAL 06/30/19 09:00 09/17/19 19:14 07/09/19 08:35 Mirtazapine (Remeron) 15 mg BEDTIME ORAL 06/29/19 21:00 09/19/19 20:59 07/09/19 21:09 Ondansetron HCl (Zofran) 4 mg Q6H PRN IVP Nausea & Vomiting 06/29/19 18:00 07/16/19 17:59 Polyethylene Glycol (Miralax) 17 gm BEDTIME ORAL 06/29/19 21:00 07/17/19 20:59 07/08/19 20:06 Laboratory Tests 07/10/19 05:00: White Blood Count 14.1H, Red Blood Count 4.83, Hemoglobin 14.7, Hematocrit 44.4 , Mean Corpuscular Volume 92, Mean Corpuscular Hemoglobin 30.5, Mean Corpuscular Hemoglobin Concent 33.2, Red Cell Distribution Width 13.8, Platelet Count 368, Mean Platelet Volume 6.0L, Neutrophils (%) (Auto) 76.8H, Lymphocytes (%) (Auto) 16.4L, Monocytes (%) (Auto) 5.7, Eosinophils (%) (Auto) 0.4, Basophils (%) (Auto) 0.6, Sodium Level 151H, Potassium Level 3.8, Chloride Level 111H, Carbon Dioxide Level 34H, Anion Gap 6, Blood Urea Nitrogen 28H, Creatinine 0.9, Estimat Glomerular Filtration Rate > 60, Glucose Level 144H, Uric Acid 4.6, Calcium Level 8.9, Phosphorus Level 3.3, Magnesium Level 2.4, Total Bilirubin 0.4, Aspartate Amino Transf (AST/SGOT) 134H, Alanine Aminotransferase (ALT/SGPT) 207H, Alkaline Phosphatase 235H, C-Reactive Protein , Quantitative 9.4H, Total Protein 9.1H, Albumin 2.3L, Globulin 6.8, Albumin/ Globulin Ratio 0.3L Height (Feet): 5 Height (Inches): 2 Weight (Pounds): 133 General Appearance: no apparent distress Cardiovascular: normal rate Abdomen: other - PEG present Objective no change Drew Gonzalez MD July 10, 2019 09:35
[2019-07-10] MEDS: Aspirin Baby 81mg ORAL SCH (10:22)
[2019-07-10] MEDS: Metoprolol Succinate XL 25mg tab ORAL SCH (10:22)
[2019-07-10] MEDS: Enoxaparin 40mg Inj SUBQ SCH (10:22)
--- NOTE | 2019-07-10 11:36 | GI Progress Note ---
Assessment/Plan Problems: (1) Elevated LFTs ICD Codes: R79.89 - Other specified abnormal findings of blood chemistry SNOMED: 147367196, 576823647, 682282480 (2) Dehydration ICD Codes: E86.0 - Dehydration SNOMED: 94093616 (3) Suspected 2019 novel coronavirus infection ICD Codes: R68.89 - Other general symptoms and signs SNOMED: 296793795 (4) Pneumonia ICD Codes: J18.9 - Pneumonia, unspecified organism SNOMED: 371966041, 736113477, 443313159 (5) Electrolyte imbalance ICD Codes: E87.8 - Other disorders of electrolyte and fluid balance, not elsewhere classified SNOMED: 774250982 Status: unchanged Status Narrative Discussed with Dr. Quiroga. Assessment/Plan 1. History of dementia. 2. CHF. 3. Hypertension. 4. BPH. 5. Constipation. 6. elevated LFTS 7. AMI 8. 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 I agree with the above findings, impression and plan. (Patient seen earlier today. Signature stamp does not reflect patient encounter time.). - Perry Quiroga MD Subjective Subjective limited Objective Last 24 Hour Vital Signs Date Time Temp Pulse Resp B/P (MAP) Pulse Ox O2 Delivery O2 Flow Rate FiO2 07/10/19 10:23 82 129/82 07/10/19 10:22 82 129/82 07/10/19 08:00 97.7 82 17 129/82 (98) 97 82 82 07/10/19 04:00 98.1 75 18 140/75 (96) 96 07/10/19 00:00 97.8 86 18 117/75 (89) 95 07/09/19 21:00 Nasal Cannula 2.0 07/09/19 20:00 98.6 85 19 130/84 (99) 95 77 79 07/09/19 16:00 98.0 85 19 129/72 (91) 96 79 79 07/09/19 12:00 98.6 79 19 127/77 (94) 95 79 79 Intake and Output 07/09/19 07/10/19 19:00 07:00 Intake Total 158 ml 55 ml Balance 158 ml 55 ml Tube Feeding 158 ml 55 ml # Voids 3 # Bowel Movements 1 1 Laboratory Tests Test 07/10/19 05:00 White Blood Count 14.1 K/UL (4.8-10.8) H Red Blood Count 4.83 M/UL (4.70-6.10) Hemoglobin 14.7 G/DL (14.2-18.0) Hematocrit 44.4 % (42.0-52.0) Mean Corpuscular Volume 92 FL (80-99) Mean Corpuscular Hemoglobin 30.5 PG (27.0-31.0) Mean Corpuscular Hemoglobin Concent 33.2 G/DL (32.0-36.0) Red Cell Distribution Width 13.8 % (11.6-14.8) Platelet Count 368 K/UL (150-450) Mean Platelet Volume 6.0 FL (6.5-10.1) L Neutrophils (%) (Auto) 76.8 % (45.0-75.0) H Lymphocytes (%) (Auto) 16.4 % (20.0-45.0) L Monocytes (%) (Auto) 5.7 % (1.0-10.0) Eosinophils (%) (Auto) 0.4 % (0.0-3.0) Basophils (%) (Auto) 0.6 % (0.0-2.0) Sodium Level 151 MMOL/L (136-145) H Potassium Level 3.8 MMOL/L (3.5-5.1) Chloride Level 111 MMOL/L (98-107) H Carbon Dioxide Level 34 MMOL/L (21-32) H Anion Gap 6 mmol/L (5-15) Blood Urea Nitrogen 28 mg/dL (7-18) H Creatinine 0.9 MG/DL (0.55-1.30) Estimat Glomerular Filtration Rate > 60 mL/min (>60) Glucose Level 144 MG/DL (74-106) H Uric Acid 4.6 MG/DL (2.6-7.2) Calcium Level 8.9 MG/DL (8.5-10.1) Phosphorus Level 3.3 MG/DL (2.5-4.9) Magnesium Level 2.4 MG/DL (1.8-2.4) Total Bilirubin 0.4 MG/DL (0.2-1.0) Aspartate Amino Transf (AST/SGOT) 134 U/L (15-37) H Alanine Aminotransferase (ALT/SGPT) 207 U/L (12-78) H Alkaline Phosphatase 235 U/L (46-116) H C-Reactive Protein, Quantitative 9.4 mg/dL (0.00-0.90) H Total Protein 9.1 G/DL (6.4-8.2) H Albumin 2.3 G/DL (3.4-5.0) L Globulin 6.8 g/dL Albumin/Globulin Ratio 0.3 (1.0-2.7) L Height (Feet): 5 Height (Inches): 2 Weight (Pounds): 133 General Appearance: WD/WN, no apparent distress, alert Cardiovascular: normal rate Respiratory/Chest: normal breath sounds, no respiratory distress Abdominal Exam: normal bowel sounds, non tender, soft Extremities: non-tender Rishi Patricio MECHANIST July 10, 2019 11:36
[2019-07-10 11:48] VITALS: BP 109/70
--- NOTE | 2019-07-10 12:29 | Hematology/Onc Progress Note ---
Assessment/Plan Assessment/Plan Assessment and Plan: # Leukopenia -- multiple etiologies could be related to underlying liver disease , medication-induced, infection versus viral syndrome, in this case likely due to COVID19+++, and Hep C+ --> peripheral smear has been ordered and does not show significant abnormalities --> Medications have been reviewed --> Continue to monitor for improvement, trend cbc --> Hep panel and HIV have been ordered--> cw hep C++ exposure --> US abd ordered to r/o cirrhosis and hepatosplenomegaly --> none noted --> reverse isolation if ANC is <2000 --> Give neupogen if ANC <1000 --> 06/22 off abx, repeat covidneg -> HAS IMPROVED SINCE ADMISSION --> wbc 7 # Suspected 2019 novel coronavirus infection --> per id, on plaq, abx --> iso --> pulm eval recs noted --> 06/22 off abx per id # Pneumonia --> on abx --> oxygen prn --> per id # Elevated troponin ==> nstemi per cards --> diuresis prn # Elevated LFTs --> likely hep C related # Hep c --> vl and outpatient gi # Dysphagia with dec weight loss --> recommend gtube --> gtube has been placed --> as per gi # Dvt ppx lovenox sq The timing of this note does not necessarily reflect the time of the patient was seen. Greatly appreciate consultation. Subjective Constitutional: Denies: no symptoms, chills, fever, malaise, weakness, other HEENT: Denies: no symptoms, eye pain, blurred vision, tearing, double vision, ear pain, ear discharge, nose pain, nose congestion, throat pain, throat swelling, mouth pain, mouth swelling, other Cardiovascular: Denies: no symptoms, chest pain, edema, irregular heart rate, lightheadedness, palpitations, syncope, other Respiratory: Denies: no symptoms, cough, shortness of breath, SOB with excertion, SOB at rest, sputum, wheezing, other Neurologic/Psychiatric: Denies: no symptoms, anxiety, depressed, emotional problems, headache, numbness, paresthesia, pre-existing deficit, seizure, tingling, tremors, weakness, other Endocrine: Denies: no symptoms, excessive sweating, flushing, intolerance to cold, intolerance to heat, increased hunger, increased thirst, increased urine, unexplained weight gain, unexplained weight loss, other Allergies: Coded Allergies: No Known Allergies (Unverified , 06/15/19) Subjective 06/20 breathing is better, on iso for covid 19, wbc improved 06/21 labs better, no bleeding, no f/c, meds noted, hcv+ 06/22 restraints, off abx, repeat covid pending, nc 06/23 no bleeding, labs noted, no night sweats, cbc reviewed, on 2l nc 06/25 remains on glucerna, have ordered for labs, no bleeding 06/26 remains on 2lnc as for covid infection, for iso 06/27 is on 2lnc, no bleeding, labs reviewed, no night sweats 06/28 labs have improved, no bleeding or chills, imaging noted 06/29 plan for peg when off iso, no bleeding, dw gi 06/30 with nc on board, ngt is running, no bleeding noted 07/02 labs are noted, no bleeding, meds reviewed 07/03 labs reviewed, seen by gi and renal, no bleeding, meds noted, with ngt 07/04 nc functional, with ngt in place, no night sweats, meds noted 07/05 confused, restraints, isolation, no acute distress 07/06 remains mostly confused with nc, no bleeding, meds noted 07/07 remains confused, no fc, no bleeding 07/09 reamins confused, with wrist restraints, wbc elev Objective Objective Current Medications Medications (Trade) Dose Ordered Sig/Kaylan Route PRN Reason Start Time Stop Time Status Last Admin Dose Admin Acetaminophen (Tylenol) 500 mg Q6H PRN ORAL For Pain 06/29/19 18:15 07/16/19 00:14 07/01/19 09:11 Acetaminophen (Tylenol) 650 mg Q6H PRN ORAL For Headache 06/29/19 18:00 07/16/19 17:59 Albuterol Sulfate (Proventil MDI) 2 puff Q6H PRN INH Shortness of Breath 06/29/19 18:00 09/14/19 17:59 Amlodipine Besylate (Norvasc) 5 mg DAILY NG 06/30/19 09:00 07/23/19 11:59 07/10/19 10:23 Aspirin (ASA) 81 mg DAILY ORAL 06/30/19 09:00 07/31/19 08:59 07/10/19 10:22 Docusate Sodium (Colace) 100 mg DAILY ORAL 06/30/19 09:00 07/16/19 08:59 07/09/19 08:35 Enoxaparin Sodium (Lovenox) 40 mg DAILY SUBQ 06/30/19 09:00 09/14/19 08:59 07/10/19 10:22 Hydralazine HCl (Apresoline) 25 mg Q4H PRN ORAL SBP > 160mmHg 06/29/19 17:30 09/20/19 13:29 Metoprolol Succinate (Toprol XL) 25 mg DAILY ORAL 06/30/19 09:00 09/17/19 19:14 07/10/19 10:22 Mirtazapine (Remeron) 15 mg BEDTIME ORAL 06/29/19 21:00 09/19/19 20:59 07/09/19 21:09 Ondansetron HCl (Zofran) 4 mg Q6H PRN IVP Nausea & Vomiting 06/29/19 18:00 07/16/19 17:59 Polyethylene Glycol (Miralax) 17 gm BEDTIME ORAL 06/29/19 21:00 07/17/19 20:59 07/08/19 20:06 Last 24 Hour Vital Signs Date Time Temp Pulse Resp B/P (MAP) Pulse Ox O2 Delivery O2 Flow Rate FiO2 07/10/19 11:48 98.6 63 20 109/70 (83) 97 63 63 07/10/19 10:23 82 129/82 07/10/19 10:22 82 129/82 07/10/19 08:00 97.7 82 17 129/82 (98) 97 82 82 07/10/19 04:00 98.1 75 18 140/75 (96) 96 07/10/19 00:00 97.8 86 18 117/75 (89) 95 07/09/19 21:00 Nasal Cannula 2.0 07/09/19 20:00 98.6 85 19 130/84 (99) 95 77 79 07/09/19 16:00 98.0 85 19 129/72 (91) 96 79 79 07/09/19 12:00 98.6 79 19 127/77 (94) 95 79 79 07/09/19 08:51 Nasal Cannula 2.0 07/09/19 08:35 81 152/105 07/09/19 08:35 81 152/105 07/09/19 08:00 98.1 81 18 152/105 (121) 95 07/09/19 04:00 98.7 90 18 101/75 (84) 95 07/09/19 00:31 97 Nasal Cannula 2.0 28 07/08/19 23:20 97.9 92 18 113/74 (87) 97 07/08/19 21:00 Nasal Cannula 2.0 07/08/19 20:00 98.2 99 18 102/69 (80) 96 07/08/19 16:00 98.0 80 18 125/79 (94) 98 07/08/19 13:31 72 20 98 07/08/19 13:30 97.7 77 16 127/78 99 Nasal Cannula 3 07/08/19 13:29 72 20 98 07/08/19 13:20 68 17 138/72 99 Nasal Cannula 3 07/08/19 13:16 97.7 74 24 145/90 99 Nasal Cannula 3 Intake and Output 07/09/19 07/10/19 19:00 07:00 Intake Total 158 ml 55 ml Balance 158 ml 55 ml Tube Feeding 158 ml 55 ml # Voids 3 # Bowel Movements 1 1 Labs Test 07/10/19 05:00 White Blood Count 14.1 K/UL (4.8-10.8) Red Blood Count 4.83 M/UL (4.70-6.10) Hemoglobin 14.7 G/DL (14.2-18.0) Hematocrit 44.4 % (42.0-52.0) Mean Corpuscular Volume 92 FL (80-99) Mean Corpuscular Hemoglobin 30.5 PG (27.0-31.0) Mean Corpuscular Hemoglobin Concent 33.2 G/DL (32.0-36.0) Red Cell Distribution Width 13.8 % (11.6-14.8) Platelet Count 368 K/UL (150-450) Mean Platelet Volume 6.0 FL (6.5-10.1) Neutrophils (%) (Auto) 76.8 % (45.0-75.0) Lymphocytes (%) (Auto) 16.4 % (20.0-45.0) Monocytes (%) (Auto) 5.7 % (1.0-10.0) Eosinophils (%) (Auto) 0.4 % (0.0-3.0) Basophils (%) (Auto) 0.6 % (0.0-2.0) Sodium Level 151 MMOL/L (136-145) Potassium Level 3.8 MMOL/L (3.5-5.1) Chloride Level 111 MMOL/L (98-107) Carbon Dioxide Level 34 MMOL/L (21-32) Anion Gap 6 mmol/L (5-15) Blood Urea Nitrogen 28 mg/dL (7-18) Creatinine 0.9 MG/DL (0.55-1.30) Estimat Glomerular Filtration Rate > 60 mL/min (>60) Glucose Level 144 MG/DL (74-106) Uric Acid 4.6 MG/DL (2.6-7.2) Calcium Level 8.9 MG/DL (8.5-10.1) Phosphorus Level 3.3 MG/DL (2.5-4.9) Magnesium Level 2.4 MG/DL (1.8-2.4) Total Bilirubin 0.4 MG/DL (0.2-1.0) Aspartate Amino Transf (AST/SGOT) 134 U/L (15-37) Alanine Aminotransferase (ALT/SGPT) 207 U/L (12-78) Alkaline Phosphatase 235 U/L (46-116) C-Reactive Protein, Quantitative 9.4 mg/dL (0.00-0.90) Total Protein 9.1 G/DL (6.4-8.2) Albumin 2.3 G/DL (3.4-5.0) Globulin 6.8 g/dL Albumin/Globulin Ratio 0.3 (1.0-2.7) Height (Feet): 5 Height (Inches): 2 Weight (Pounds): 133 Objective Physical Exam General: Awake + confused, no acute distress HEENT: NC/AT. EOMI. Cardiovascular: RRR. S1 and S2 normal. No murmur appreciated Resp: Mild tachypnea, normal work of breathing. On 2 L nasal cannula+ Abdomen: Abdomen is soft, nondistended. Nt ++peg tune Skin: Intact. No abrasions, laceration MSK: Normal tone and bulk. Moving all extremities Neuro: Awake and somewhat confused. Poor historian Geraldo Galvez MD July 10, 2019 12:29
--- NOTE | 2019-07-10 14:26 | Infectious Diseases Prog Note ---
Assessment/Plan Assessment/Plan IMPRESSION: COIVD19 Pneumonia, Positive on : 06/14, 06/20, 06/22, 06/25, 06/28 Indeterminate: 07/02 Negative: 07/04 & 07/05 Cholelithiasis and elevated transaminase level, acidosis, dementia with behavioral problem. Dysphagia Hepatitis C s/p GT placement Leukocytosis RECOMMENDATION: Will f/u CBC Subjective Neurologic: Reports: confusion, other - on restraint Allergies: Coded Allergies: No Known Allergies (Unverified , 06/15/19) Objective Vital Signs Last 24 Hour Vital Signs Date Time Temp Pulse Resp B/P (MAP) Pulse Ox O2 Delivery O2 Flow Rate FiO2 07/10/19 11:48 98.6 63 20 109/70 (83) 97 63 63 07/10/19 10:23 82 129/82 07/10/19 10:22 82 129/82 07/10/19 09:00 Nasal Cannula 2.0 07/10/19 08:00 97.7 82 17 129/82 (98) 97 82 82 07/10/19 04:00 98.1 75 18 140/75 (96) 96 07/10/19 00:00 97.8 86 18 117/75 (89) 95 07/09/19 21:00 Nasal Cannula 2.0 07/09/19 20:00 98.6 85 19 130/84 (99) 95 77 79 07/09/19 16:00 98.0 85 19 129/72 (91) 96 79 79 Height (Feet): 5 Height (Inches): 2 Weight (Pounds): 133 General Appearance: no acute distress HEENT: mucous membranes moist Respiratory/Chest: lungs clear, other - oxygen by nasal cannula Cardiovascular: normal rate Abdomen: soft, non tender, other - GT feeding Extremities: no edema Neurologic/Psychiatric: disoriented Laboratory Tests Test 07/10/19 05:00 White Blood Count 14.1 K/UL (4.8-10.8) H Red Blood Count 4.83 M/UL (4.70-6.10) Hemoglobin 14.7 G/DL (14.2-18.0) Hematocrit 44.4 % (42.0-52.0) Mean Corpuscular Volume 92 FL (80-99) Mean Corpuscular Hemoglobin 30.5 PG (27.0-31.0) Mean Corpuscular Hemoglobin Concent 33.2 G/DL (32.0-36.0) Red Cell Distribution Width 13.8 % (11.6-14.8) Platelet Count 368 K/UL (150-450) Mean Platelet Volume 6.0 FL (6.5-10.1) L Neutrophils (%) (Auto) 76.8 % (45.0-75.0) H Lymphocytes (%) (Auto) 16.4 % (20.0-45.0) L Monocytes (%) (Auto) 5.7 % (1.0-10.0) Eosinophils (%) (Auto) 0.4 % (0.0-3.0) Basophils (%) (Auto) 0.6 % (0.0-2.0) Sodium Level 151 MMOL/L (136-145) H Potassium Level 3.8 MMOL/L (3.5-5.1) Chloride Level 111 MMOL/L (98-107) H Carbon Dioxide Level 34 MMOL/L (21-32) H Anion Gap 6 mmol/L (5-15) Blood Urea Nitrogen 28 mg/dL (7-18) H Creatinine 0.9 MG/DL (0.55-1.30) Estimat Glomerular Filtration Rate > 60 mL/min (>60) Glucose Level 144 MG/DL (74-106) H Uric Acid 4.6 MG/DL (2.6-7.2) Calcium Level 8.9 MG/DL (8.5-10.1) Phosphorus Level 3.3 MG/DL (2.5-4.9) Magnesium Level 2.4 MG/DL (1.8-2.4) Total Bilirubin 0.4 MG/DL (0.2-1.0) Aspartate Amino Transf (AST/SGOT) 134 U/L (15-37) H Alanine Aminotransferase (ALT/SGPT) 207 U/L (12-78) H Alkaline Phosphatase 235 U/L (46-116) H C-Reactive Protein, Quantitative 9.4 mg/dL (0.00-0.90) H Total Protein 9.1 G/DL (6.4-8.2) H Albumin 2.3 G/DL (3.4-5.0) L Globulin 6.8 g/dL Albumin/Globulin Ratio 0.3 (1.0-2.7) L Current Medications Medications (Trade) Dose Ordered Sig/Kaylan Route PRN Reason Start Time Stop Time Status Last Admin Dose Admin Acetaminophen (Tylenol) 500 mg Q6H PRN ORAL For Pain 06/29/19 18:15 07/16/19 00:14 07/01/19 09:11 Acetaminophen (Tylenol) 650 mg Q6H PRN ORAL For Headache 06/29/19 18:00 07/16/19 17:59 Albuterol Sulfate (Proventil MDI) 2 puff Q6H PRN INH Shortness of Breath 06/29/19 18:00 09/14/19 17:59 Amlodipine Besylate (Norvasc) 5 mg DAILY NG 06/30/19 09:00 07/23/19 11:59 07/10/19 10:23 Aspirin (ASA) 81 mg DAILY ORAL 06/30/19 09:00 07/31/19 08:59 07/10/19 10:22 Docusate Sodium (Colace) 100 mg DAILY ORAL 06/30/19 09:00 07/16/19 08:59 07/09/19 08:35 Enoxaparin Sodium (Lovenox) 40 mg DAILY SUBQ 06/30/19 09:00 09/14/19 08:59 07/10/19 10:22 Hydralazine HCl (Apresoline) 25 mg Q4H PRN ORAL SBP > 160mmHg 06/29/19 17:30 09/20/19 13:29 Metoprolol Succinate (Toprol XL) 25 mg DAILY ORAL 06/30/19 09:00 09/17/19 19:14 07/10/19 10:22 Mirtazapine (Remeron) 15 mg BEDTIME ORAL 06/29/19 21:00 09/19/19 20:59 07/09/19 21:09 Ondansetron HCl (Zofran) 4 mg Q6H PRN IVP Nausea & Vomiting 06/29/19 18:00 07/16/19 17:59 Polyethylene Glycol (Miralax) 17 gm BEDTIME ORAL 06/29/19 21:00 07/17/19 20:59 07/08/19 20:06 Benigno Betancourt MD July 10, 2019 14:26
[2019-07-10 16:00] VITALS: BP 121/72
--- NOTE | 2019-07-10 19:45 | NUR ---
HAND-OFF: Report given to Miko FRENCH.
[2019-07-10 20:00] VITALS: BP 121/71
--- NOTE | 2019-07-10 20:27 | General Progress Note ---
Assessment/Plan Problem List: (1) Elevated troponin ICD Codes: R79.89 - Other specified abnormal findings of blood chemistry SNOMED: 688926414, 595957185, 876996692 (2) Elevated LFTs ICD Codes: R79.89 - Other specified abnormal findings of blood chemistry SNOMED: 166640830, 529837048, 137314139 (3) Pneumonia ICD Codes: J18.9 - Pneumonia, unspecified organism SNOMED: 105519035, 400245744, 163165571 (4) Suspected 2019 novel coronavirus infection ICD Codes: R68.89 - Other general symptoms and signs SNOMED: 540238685 Status: progressing, unchanged Assessment/Plan: repeat covid came negative azotemia s/p peg malnurtion elevated troponin afebrile Subjective ROS Limited/Unobtainable: Yes Allergies: Coded Allergies: No Known Allergies (Unverified , 06/15/19) Objective Last 24 Hour Vital Signs Date Time Temp Pulse Resp B/P (MAP) Pulse Ox O2 Delivery O2 Flow Rate FiO2 07/10/19 16:00 98.5 83 18 121/72 (88) 97 07/10/19 11:48 98.6 63 20 109/70 (83) 97 63 63 07/10/19 10:23 82 129/82 07/10/19 10:22 82 129/82 07/10/19 09:00 Nasal Cannula 2.0 07/10/19 08:00 97.7 82 17 129/82 (98) 97 82 82 07/10/19 04:00 98.1 75 18 140/75 (96) 96 07/10/19 00:00 97.8 86 18 117/75 (89) 95 07/09/19 21:00 Nasal Cannula 2.0 Intake and Output 07/09/19 07/10/19 19:00 07:00 Intake Total 158 ml 55 ml Balance 158 ml 55 ml Tube Feeding 158 ml 55 ml # Voids 3 # Bowel Movements 1 1 Laboratory Tests 07/10/19 05:00: White Blood Count 14.1H, Red Blood Count 4.83, Hemoglobin 14.7, Hematocrit 44.4 , Mean Corpuscular Volume 92, Mean Corpuscular Hemoglobin 30.5, Mean Corpuscular Hemoglobin Concent 33.2, Red Cell Distribution Width 13.8, Platelet Count 368, Mean Platelet Volume 6.0L, Neutrophils (%) (Auto) 76.8H, Lymphocytes (%) (Auto) 16.4L, Monocytes (%) (Auto) 5.7, Eosinophils (%) (Auto) 0.4, Basophils (%) (Auto) 0.6, Sodium Level 151H, Potassium Level 3.8, Chloride Level 111H, Carbon Dioxide Level 34H, Anion Gap 6, Blood Urea Nitrogen 28H, Creatinine 0.9, Estimat Glomerular Filtration Rate > 60, Glucose Level 144H, Uric Acid 4.6, Calcium Level 8.9, Phosphorus Level 3.3, Magnesium Level 2.4, Total Bilirubin 0.4, Aspartate Amino Transf (AST/SGOT) 134H, Alanine Aminotransferase (ALT/SGPT) 207H, Alkaline Phosphatase 235H, C-Reactive Protein , Quantitative 9.4H, Total Protein 9.1H, Albumin 2.3L, Globulin 6.8, Albumin/ Globulin Ratio 0.3L Height (Feet): 5 Height (Inches): 2 Weight (Pounds): 133 Gorge Malhotra MD July 10, 2019 20:27
--- NOTE | 2019-07-10 20:30 | NUR ---
NURSE NOTES: Received report form Ramy RN , rounds made , pt sleeping , i.v site on L arm 22G , no iv fluids , Gtube feeding Glucerna going at 55 Ml /hr, no s/s distress , soft restraints on bilateral arms, with s/s good circulation bed in low locked position , call light with in reach , will continue with plan of care .
[2019-07-10] MEDS: Miralax 17gm pkt ORAL SCH (21:00)
--- NOTE | 2019-07-10 23:30 | Psych Consult Progress Note ---
Psychiatry Progress Note Psychiatry Progress Note Medications Current Medications Medications (Trade) Dose Ordered Sig/Kaylan Route PRN Reason Start Time Stop Time Status Last Admin Dose Admin Acetaminophen (Tylenol) 500 mg Q6H PRN ORAL For Pain 06/29/19 18:15 07/16/19 00:14 07/01/19 09:11 Acetaminophen (Tylenol) 650 mg Q6H PRN ORAL For Headache 06/29/19 18:00 07/16/19 17:59 Albuterol Sulfate (Proventil MDI) 2 puff Q6H PRN INH Shortness of Breath 06/29/19 18:00 09/14/19 17:59 Amlodipine Besylate (Norvasc) 5 mg DAILY NG 06/30/19 09:00 07/23/19 11:59 07/10/19 10:23 Aspirin (ASA) 81 mg DAILY ORAL 06/30/19 09:00 07/31/19 08:59 07/10/19 10:22 Docusate Sodium (Colace) 100 mg DAILY ORAL 06/30/19 09:00 07/16/19 08:59 07/09/19 08:35 Enoxaparin Sodium (Lovenox) 40 mg DAILY SUBQ 06/30/19 09:00 09/14/19 08:59 07/10/19 10:22 Hydralazine HCl (Apresoline) 25 mg Q4H PRN ORAL SBP > 160mmHg 06/29/19 17:30 09/20/19 13:29 Metoprolol Succinate (Toprol XL) 25 mg DAILY ORAL 06/30/19 09:00 09/17/19 19:14 07/10/19 10:22 Mirtazapine (Remeron) 15 mg BEDTIME ORAL 06/29/19 21:00 09/19/19 20:59 07/10/19 21:00 Ondansetron HCl (Zofran) 4 mg Q6H PRN IVP Nausea & Vomiting 06/29/19 18:00 07/16/19 17:59 Polyethylene Glycol (Miralax) 17 gm BEDTIME ORAL 06/29/19 21:00 07/17/19 20:59 07/10/19 21:00 Neurological/Psychiatric: Reports: anxiety, depressed, emotional problems Allergies: Coded Allergies: No Known Allergies (Unverified , 4/15/20) Objective Data Height (Feet): 5 Height (Inches): 2 Weight (Pounds): 133 Additional Comments: oriented times self. Mood is neutral. Affect is flat. Thought process is concrete. Thought content, no suicidal or homicidal ideation. Cognition is impaired. Insight and judgment is impaired. ASSESSMENT: Dementia with behavior disturbance. PLAN: 1. Continue bilateral restraints. 2. PRN medication. Assessment/Plan Status: progressing, unchanged Assessment/Plan: PLAN: 1. Remeron 15 mg at night. 3.nemanda was dced 4. Discussed with the nurse. Karlo Santiago MD July 10, 2019 23:30
[2019-07-11] VITALS: BP 115/73
[2019-07-11 04:00] VITALS: BP 118/76
--- NOTE | 2019-07-11 04:18 | Pulmonology Progress Note ---
Subjective ROS Limited/Unobtainable: No Constitutional: Denies: fever Respiratory: Reports: shortness of breath Allergies: Coded Allergies: No Known Allergies (Unverified , 06/15/19) All Systems: reviewed and negative except above Objective Last 24 Hour Vital Signs Date Time Temp Pulse Resp B/P (MAP) Pulse Ox O2 Delivery O2 Flow Rate FiO2 07/11/19 00:00 98.0 79 20 115/73 (87) 94 07/10/19 21:00 Nasal Cannula 2.0 07/10/19 20:00 98.1 82 18 121/71 (88) 95 07/10/19 16:00 98.5 83 18 121/72 (88) 97 07/10/19 11:48 98.6 63 20 109/70 (83) 97 63 63 07/10/19 10:23 82 129/82 07/10/19 10:22 82 129/82 07/10/19 09:00 Nasal Cannula 2.0 07/10/19 08:00 97.7 82 17 129/82 (98) 97 82 82 Intake and Output 07/10/19 07/11/19 19:00 07:00 Intake Total 55 ml Balance 55 ml Tube Feeding 55 ml # Voids 2 # Bowel Movements 1 General Appearance: no acute distress HEENT: mucous membranes moist Abdomen: soft, non tender, other - GT feeding Extremities: no edema Neurologic/Psychiatric: disoriented Laboratory Tests 07/10/19 05:00: White Blood Count 14.1H, Red Blood Count 4.83, Hemoglobin 14.7, Hematocrit 44.4 , Mean Corpuscular Volume 92, Mean Corpuscular Hemoglobin 30.5, Mean Corpuscular Hemoglobin Concent 33.2, Red Cell Distribution Width 13.8, Platelet Count 368, Mean Platelet Volume 6.0L, Neutrophils (%) (Auto) 76.8H, Lymphocytes (%) (Auto) 16.4L, Monocytes (%) (Auto) 5.7, Eosinophils (%) (Auto) 0.4, Basophils (%) (Auto) 0.6, Sodium Level 151H, Potassium Level 3.8, Chloride Level 111H, Carbon Dioxide Level 34H, Anion Gap 6, Blood Urea Nitrogen 28H, Creatinine 0.9, Estimat Glomerular Filtration Rate > 60, Glucose Level 144H, Uric Acid 4.6, Calcium Level 8.9, Phosphorus Level 3.3, Magnesium Level 2.4, Total Bilirubin 0.4, Aspartate Amino Transf (AST/SGOT) 134H, Alanine Aminotransferase (ALT/SGPT) 207H, Alkaline Phosphatase 235H, C-Reactive Protein , Quantitative 9.4H, Total Protein 9.1H, Albumin 2.3L, Globulin 6.8, Albumin/ Globulin Ratio 0.3L Current Medications Medications (Trade) Dose Ordered Sig/Kaylan Route PRN Reason Start Time Stop Time Status Last Admin Dose Admin Acetaminophen (Tylenol) 500 mg Q6H PRN ORAL For Pain 06/29/19 18:15 07/16/19 00:14 07/01/19 09:11 Acetaminophen (Tylenol) 650 mg Q6H PRN ORAL For Headache 06/29/19 18:00 07/16/19 17:59 Albuterol Sulfate (Proventil MDI) 2 puff Q6H PRN INH Shortness of Breath 06/29/19 18:00 09/14/19 17:59 Amlodipine Besylate (Norvasc) 5 mg DAILY NG 06/30/19 09:00 07/23/19 11:59 07/10/19 10:23 Aspirin (ASA) 81 mg DAILY ORAL 06/30/19 09:00 07/31/19 08:59 07/10/19 10:22 Docusate Sodium (Colace) 100 mg DAILY ORAL 06/30/19 09:00 07/16/19 08:59 07/09/19 08:35 Enoxaparin Sodium (Lovenox) 40 mg DAILY SUBQ 06/30/19 09:00 09/14/19 08:59 07/10/19 10:22 Hydralazine HCl (Apresoline) 25 mg Q4H PRN ORAL SBP > 160mmHg 06/29/19 17:30 09/20/19 13:29 Metoprolol Succinate (Toprol XL) 25 mg DAILY ORAL 06/30/19 09:00 09/17/19 19:14 07/10/19 10:22 Mirtazapine (Remeron) 15 mg BEDTIME ORAL 06/29/19 21:00 09/19/19 20:59 07/10/19 21:00 Ondansetron HCl (Zofran) 4 mg Q6H PRN IVP Nausea & Vomiting 06/29/19 18:00 5/16/20 17:59 Polyethylene Glycol (Miralax) 17 gm BEDTIME ORAL 06/29/19 21:00 07/17/19 20:59 07/10/19 21:00 Assessment/Plan Assessment/Plan Pulmonary Progress Note HPI: Patient is a 88-year-old male history of Dementia, Congestive Heart Failure , admitted from [facility] facility with Pneumonia, COVID 19 positive, noted to have fever and shortness of breath, chest congestion and tightness. Stable O2 requirements - 2L NC, stable Pulmonary Status clinically, Covid isolation DC previously as 2x negative tests Sp G tube, tolerating feeds Seen earlier Seen on 07/10/2019 PMH: Dementia, Congestive Heart Failure Social Hx: Senior Care Resident FHx: NC Allergies: No Known Allergies All Other Systems: limited - AMS Physical Exam Vital signs noted General: Awake and somewhat confused, no acute distress HEENT: NC/AT. EOMI. Cardiovascular: RRR. S1 and S2 normal. No murmur appreciated Resp: Mild tachypnea, normal work of breathing. On 2 L nasal cannula. No cough Abdomen: Abdomen is soft, nondistended. Nontender. G tube Skin: Intact. No abrasions, laceration or rash noted MSK: Normal tone and bulk. Moving all extremities. No obvious deformity. Neuro: Awake and somewhat confused. Poor historian. No focal signs Impression: Pneumonia S/P 2019 novel coronavirus infection S/p G tube Elevated troponin, myonecrosis suspected Hepatitis C Elevated LFTs Lymphopenia Dementia Congestive Heart Failure Senior Care Resident Plan G tube feeding O2 PRN Albuterol MDI PRN PPX - Lovenox ASA Monitor labs [employer] meds Laboratory Tests noted EKG Rate: normal Rhythm: NSR ST Segments: no acute changes Sinus rhythm, left axis deviation. Occasional PACs. T wave inversions, no ST segment changes Chest X-Ray: Consolidations in the left lower lobe may represent pneumonia. No effusion. Some improvement . Andrew Diaz MD July 11, 2019 04:18
[2019-07-11 07:06] LABS: BASOPHILS % (AUTO) 0.7 % (0.0-2.0); EOSINOPHILS % (AUTO) 1.9 % (0.0-3.0); HEMATOCRIT 41.5 % (42.0-52.0); LYMPHOCYTES % (AUTO) 16.4 % (20.0-45.0); MEAN CORPUSCULAR VOLUME 92 FL (80-99); MONOCYTES % (AUTO) 5.7 % (1.0-10.0); NEUTROPHILS % (AUTO) 75.3 % (45.0-75.0); PLATELET COUNT 335 K/UL (150-450); RED BLOOD COUNT 4.53 M/UL (4.70-6.10); RED CELL DISTRIBUTION WIDTH 13.1 % (11.6-14.8); WHITE BLOOD COUNT 12.1 K/UL (4.8-10.8)
[2019-07-11 07:37] LABS: ALANINE AMINOTRANSFERASE 176 U/L (12-78); ALBUMIN 2.2 G/DL (3.4-5.0); ALBUMIN/GLOBULIN RATIO 0.3 (1.0-2.7); ALKALINE PHOSPHATASE 218 U/L (46-116); ANION GAP 6 mmol/L (5-15); ASPARTATE AMINO TRANSFERASE 130 U/L (15-37); BILIRUBIN,TOTAL 0.3 MG/DL (0.2-1.0); BLOOD UREA NITROGEN 25 mg/dL (7-18); CALCIUM 8.9 MG/DL (8.5-10.1); CARBON DIOXIDE 34 MMOL/L (21-32); CHLORIDE 111 MMOL/L (98-107); CREATININE 0.8 MG/DL (0.55-1.30); POTASSIUM 3.8 MMOL/L (3.5-5.1); SODIUM 151 MMOL/L (136-145)
--- NOTE | 2019-07-11 07:45 | NUR ---
NURSE NOTES: Received report form Miko RN, Pt asleep in bed. No SOB, breathing even and unlabored, i.v site on L arm 22G intact and patent. Gtube feeding Glucerna going at 55 Ml /hr, soft restraints on bilateral arms, with s/s good circulation. bed in lowest postion and locked. Bed alarm on. call light with in reach , will continue with plan of care .
[2019-07-11 08:00] VITALS: BP 117/81
--- NOTE | 2019-07-11 08:25 | NUR ---
HAND-OFF: Report given to raymond Ball RN.
[2019-07-11] MEDS: Aspirin Baby 81mg ORAL SCH (08:53)
[2019-07-11] MEDS: Docusate 100mg cap ORAL SCH (08:54)
[2019-07-11] MEDS: Metoprolol Succinate XL 25mg tab ORAL SCH (08:54)
[2019-07-11] MEDS: Enoxaparin 40mg Inj SUBQ SCH (08:56)
--- NOTE | 2019-07-11 09:43 | General Progress Note ---
Assessment/Plan Status: progressing, unchanged Assessment/Plan: 1. History of dementia. 2. CHF. 3. Hypertension. 4. BPH. 5. Constipation. 6. elevated LFTS 7. AMI 8. gallstones Assessment/Plan 1. History of dementia. 2. CHF. 3. Hypertension. 4. BPH. 5. Constipation. 6. elevated LFTS 7. AMI 8. 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>>> outpatient treatment [facility] cardiology repeat labs in am s/p PEG placement, on GTF Last COVID test neg Subjective ROS Limited/Unobtainable: No Allergies: Coded Allergies: No Known Allergies (Unverified , 06/15/19) Objective Last 24 Hour Vital Signs Date Time Temp Pulse Resp B/P (MAP) Pulse Ox O2 Delivery O2 Flow Rate FiO2 07/11/19 08:54 84 117/81 07/11/19 08:54 84 117/81 07/11/19 08:05 94 Nasal Cannula 2.0 28 07/11/19 08:00 97.2 84 20 117/81 (93) 94 07/11/19 04:00 98.2 18 20 118/76 (90) 95 07/11/19 00:00 98.0 79 20 115/73 (87) 94 07/10/19 21:00 Nasal Cannula 2.0 07/10/19 20:00 98.1 82 18 121/71 (88) 95 07/10/19 16:00 98.5 83 18 121/72 (88) 97 07/10/19 11:48 98.6 63 20 109/70 (83) 97 63 63 07/10/19 10:23 82 129/82 07/10/19 10:22 82 129/82 Intake and Output 07/10/19 07/11/19 19:00 07:00 Intake Total 55 ml Balance 55 ml Tube Feeding 55 ml # Voids 2 2 # Bowel Movements 1 1 Laboratory Tests 07/11/19 06:00: White Blood Count 12.1H, Red Blood Count 4.53L, Hemoglobin 14.0L, Hematocrit 41.5L, Mean Corpuscular Volume 92, Mean Corpuscular Hemoglobin 30.9, Mean Corpuscular Hemoglobin Concent 33.7, Red Cell Distribution Width 13.1, Platelet Count 335, Mean Platelet Volume 6.2L, Neutrophils (%) (Auto) 75.3H, Lymphocytes (%) (Auto) 16.4L, Monocytes (%) (Auto) 5.7, Eosinophils (%) (Auto) 1.9, Basophils (%) (Auto) 0.7, Sodium Level 151H, Potassium Level 3.8, Chloride Level 111H, Carbon Dioxide Level 34H, Anion Gap 6, Blood Urea Nitrogen 25H, Creatinine 0.8, Estimat Glomerular Filtration Rate > 60, Glucose Level 148H, Calcium Level 8.9, Total Bilirubin 0.3, Aspartate Amino Transf (AST/SGOT) 130H, Alanine Aminotransferase (ALT/SGPT) 176H, Alkaline Phosphatase 218H, Total Protein 8.7H, Albumin 2.2L, Globulin 6.5, Albumin/Globulin Ratio 0.3L Height (Feet): 5 Height (Inches): 2 Weight (Pounds): 133 General Appearance: no apparent distress EENT: normal ENT inspection Neck: supple Cardiovascular: normal rate Respiratory/Chest: decreased breath sounds Abdomen: normal bowel sounds, non tender, soft Extremities: non-tender Perry Quiroga MD July 11, 2019 09:43
--- NOTE | 2019-07-11 10:11 | NUR ---
RD ASSESSMENT & RECOMMENDATIONS SEE CARE ACTIVITY FOR COMPLETE ASSESSMENT DAILY ESTIMATED NEEDS: Needs based on Cardiac, pulmonary 61.2kg 25-30 kcals/kg 8642-2930 total kcals 1-1.5 g protein/kg 61-92 g total protein 20-25 mL/kg 3794-6209 total fluid mLs NUTRITION DIAGNOSIS: Swallowing and chewing difficulty r/t dysphagia as evidenced by pt on liquify puree texture diet w/ NTL, variable PO intake and 1:1 feeds, now s/p PEG placement. CURRENT TF: Glucerna 1.5@43ml/hr ENTERAL NUTRITION RECOMMENDATIONS: Glucerna 1.5 @45ml/hr x24 hrs to provide 1080ml, 1620kcal, 89g pro, 820ml free H2O - Increase current TF order to goal of 45ml/hr to better meet est needs. - Flush per MD, HOB over 30 degrees. ADDITIONAL RECOMMENDATIONS: 1) Obtain a calibrated bed scale wt and UPDATED EMR, Updated wt of 59.165kg is more c/w initial wt 2) Monitor lytes (K now wnl), need for renal TF 3) TF recs as above 4) rec NISS w/ TF's for glycemic control 5) Wound eval: BL heel partial thickness wounds per EMR documentation(06/24) 6) Rec to INCREASE water flushes (elev NA 146-> now 151)
--- NOTE | 2019-07-11 10:13 | Cardiology Progress Note ---
Assessment/Plan Assessment/Plan 1. Dyspnea due to possibly combination of COVID-19 pneumonia in addition to with acute HFpEF, off lasix, continue metoprolol. LVEF is at 65%. 2. Possible [id number] myocardial infarction or elevated troponin I level could be secondary to myonecrosis due to CHF. 3. HCV infection. 4. Elevated LFTs. 5. PEG placement, GT feeding. Subjective Subjective No cardiac events reported. On NC oxygen 2 lit/min. Objective Last 24 Hour Vital Signs Date Time Temp Pulse Resp B/P (MAP) Pulse Ox O2 Delivery O2 Flow Rate FiO2 07/11/19 08:54 84 117/81 07/11/19 08:54 84 117/81 07/11/19 08:05 94 Nasal Cannula 2.0 28 07/11/19 08:00 97.2 84 20 117/81 (93) 94 07/11/19 04:00 98.2 18 20 118/76 (90) 95 07/11/19 00:00 98.0 79 20 115/73 (87) 94 07/10/19 21:00 Nasal Cannula 2.0 07/10/19 20:00 98.1 82 18 121/71 (88) 95 07/10/19 16:00 98.5 83 18 121/72 (88) 97 07/10/19 11:48 98.6 63 20 109/70 (83) 97 63 63 07/10/19 10:23 82 129/82 07/10/19 10:22 82 129/82 Intake and Output 07/10/19 07/11/19 19:00 07:00 Intake Total 55 ml Balance 55 ml Tube Feeding 55 ml # Voids 2 2 # Bowel Movements 1 1 Laboratory Tests Test 07/11/19 06:00 White Blood Count 12.1 K/UL (4.8-10.8) H Red Blood Count 4.53 M/UL (4.70-6.10) L Hemoglobin 14.0 G/DL (14.2-18.0) L Hematocrit 41.5 % (42.0-52.0) L Mean Corpuscular Volume 92 FL (80-99) Mean Corpuscular Hemoglobin 30.9 PG (27.0-31.0) Mean Corpuscular Hemoglobin Concent 33.7 G/DL (32.0-36.0) Red Cell Distribution Width 13.1 % (11.6-14.8) Platelet Count 335 K/UL (150-450) Mean Platelet Volume 6.2 FL (6.5-10.1) L Neutrophils (%) (Auto) 75.3 % (45.0-75.0) H Lymphocytes (%) (Auto) 16.4 % (20.0-45.0) L Monocytes (%) (Auto) 5.7 % (1.0-10.0) Eosinophils (%) (Auto) 1.9 % (0.0-3.0) Basophils (%) (Auto) 0.7 % (0.0-2.0) Sodium Level 151 MMOL/L (136-145) H Potassium Level 3.8 MMOL/L (3.5-5.1) Chloride Level 111 MMOL/L (98-107) H Carbon Dioxide Level 34 MMOL/L (21-32) H Anion Gap 6 mmol/L (5-15) Blood Urea Nitrogen 25 mg/dL (7-18) H Creatinine 0.8 MG/DL (0.55-1.30) Estimat Glomerular Filtration Rate > 60 mL/min (>60) Glucose Level 148 MG/DL (74-106) H Calcium Level 8.9 MG/DL (8.5-10.1) Total Bilirubin 0.3 MG/DL (0.2-1.0) Aspartate Amino Transf (AST/SGOT) 130 U/L (15-37) H Alanine Aminotransferase (ALT/SGPT) 176 U/L (12-78) H Alkaline Phosphatase 218 U/L (46-116) H Total Protein 8.7 G/DL (6.4-8.2) H Albumin 2.2 G/DL (3.4-5.0) L Globulin 6.5 g/dL Albumin/Globulin Ratio 0.3 (1.0-2.7) L Objective HEENT: Atraumatic and normocephalic. Anicteric. Pupils are equal, round, and reactive to light and accommodation. Extraocular muscles intact. NECK: JVP is less than 5 cm. No carotid bruit. Carotid upstroke is 2+ bilaterally. CARDIOVASCULAR: Normal S1 and S2. Regular rate and rhythm. No murmurs, gallops, or rubs. PMI is at fourth intercostal space at midclavicular line. LUNGS: Diminished breath sounds in both bases with associated crackles. ABDOMEN: Soft, nontender, and nondistended. No hepatosplenomegaly. Positive bowel sounds, + PEG in place. EXTREMITIES: No evidence of edema, clubbing, or cyanosis. Rolf Moreno MD July 11, 2019 10:13
--- NOTE | 2019-07-11 10:30 | Infectious Diseases Prog Note ---
Assessment/Plan Assessment/Plan IMPRESSION: [id number] Pneumonia, Positive on : 06/14, 06/20, 06/22, 06/25, 06/28 Indeterminate: 07/02 Negative: 07/04 & 07/05 Cholelithiasis and elevated transaminase level, acidosis, dementia with behavioral problem. Dysphagia Hepatitis C s/p GT placement Leukocytosis improving RECOMMENDATION: Observe off antibiotic Subjective ROS Limited/Unobtainable: Yes Constitutional: Denies: fever Neurologic: Reports: confusion, other - on restraint Allergies: Coded Allergies: No Known Allergies (Unverified , 06/15/19) Objective Vital Signs Last 24 Hour Vital Signs Date Time Temp Pulse Resp B/P (MAP) Pulse Ox O2 Delivery O2 Flow Rate FiO2 07/11/19 08:54 84 117/81 07/11/19 08:54 84 117/81 07/11/19 08:05 94 Nasal Cannula 2.0 28 07/11/19 08:00 97.2 84 20 117/81 (93) 94 07/11/19 04:00 98.2 18 20 118/76 (90) 95 07/11/19 00:00 98.0 79 20 115/73 (87) 94 07/10/19 21:00 Nasal Cannula 2.0 07/10/19 20:00 98.1 82 18 121/71 (88) 95 07/10/19 16:00 98.5 83 18 121/72 (88) 97 07/10/19 11:48 98.6 63 20 109/70 (83) 97 63 63 Height (Feet): 5 Height (Inches): 2 Weight (Pounds): 133 General Appearance: no acute distress HEENT: mucous membranes moist Respiratory/Chest: lungs clear Cardiovascular: normal rate Abdomen: other - GT feeding Extremities: no edema Neurologic/Psychiatric: other - sleeping Laboratory Tests Test 07/11/19 06:00 White Blood Count 12.1 K/UL (4.8-10.8) H Red Blood Count 4.53 M/UL (4.70-6.10) L Hemoglobin 14.0 G/DL (14.2-18.0) L Hematocrit 41.5 % (42.0-52.0) L Mean Corpuscular Volume 92 FL (80-99) Mean Corpuscular Hemoglobin 30.9 PG (27.0-31.0) Mean Corpuscular Hemoglobin Concent 33.7 G/DL (32.0-36.0) Red Cell Distribution Width 13.1 % (11.6-14.8) Platelet Count 335 K/UL (150-450) Mean Platelet Volume 6.2 FL (6.5-10.1) L Neutrophils (%) (Auto) 75.3 % (45.0-75.0) H Lymphocytes (%) (Auto) 16.4 % (20.0-45.0) L Monocytes (%) (Auto) 5.7 % (1.0-10.0) Eosinophils (%) (Auto) 1.9 % (0.0-3.0) Basophils (%) (Auto) 0.7 % (0.0-2.0) Sodium Level 151 MMOL/L (136-145) H Potassium Level 3.8 MMOL/L (3.5-5.1) Chloride Level 111 MMOL/L (98-107) H Carbon Dioxide Level 34 MMOL/L (21-32) H Anion Gap 6 mmol/L (5-15) Blood Urea Nitrogen 25 mg/dL (7-18) H Creatinine 0.8 MG/DL (0.55-1.30) Estimat Glomerular Filtration Rate > 60 mL/min (>60) Glucose Level 148 MG/DL (74-106) H Calcium Level 8.9 MG/DL (8.5-10.1) Total Bilirubin 0.3 MG/DL (0.2-1.0) Aspartate Amino Transf (AST/SGOT) 130 U/L (15-37) H Alanine Aminotransferase (ALT/SGPT) 176 U/L (12-78) H Alkaline Phosphatase 218 U/L (46-116) H Total Protein 8.7 G/DL (6.4-8.2) H Albumin 2.2 G/DL (3.4-5.0) L Globulin 6.5 g/dL Albumin/Globulin Ratio 0.3 (1.0-2.7) L Current Medications Medications (Trade) Dose Ordered Sig/Kaylan Route PRN Reason Start Time Stop Time Status Last Admin Dose Admin Acetaminophen (Tylenol) 500 mg Q6H PRN ORAL For Pain 06/29/19 18:15 07/16/19 00:14 07/01/19 09:11 Acetaminophen (Tylenol) 650 mg Q6H PRN ORAL For Headache 06/29/19 18:00 07/16/19 17:59 Albuterol Sulfate (Proventil MDI) 2 puff Q6H PRN INH Shortness of Breath 06/29/19 18:00 09/14/19 17:59 Amlodipine Besylate (Norvasc) 5 mg DAILY NG 06/30/19 09:00 07/23/19 11:59 07/10/19 10:23 Aspirin (ASA) 81 mg DAILY ORAL 06/30/19 09:00 07/31/19 08:59 07/11/19 08:53 Docusate Sodium (Colace) 100 mg DAILY ORAL 06/30/19 09:00 07/16/19 08:59 07/11/19 08:54 Enoxaparin Sodium (Lovenox) 40 mg DAILY SUBQ 06/30/19 09:00 09/14/19 08:59 07/11/19 08:56 Hydralazine HCl (Apresoline) 25 mg Q4H PRN ORAL SBP > 160mmHg 06/29/19 17:30 09/20/19 13:29 Metoprolol Succinate (Toprol XL) 25 mg DAILY ORAL 06/30/19 09:00 09/17/19 19:14 07/11/19 08:54 Mirtazapine (Remeron) 15 mg BEDTIME ORAL 06/29/19 21:00 09/19/19 20:59 07/10/19 21:00 Ondansetron HCl (Zofran) 4 mg Q6H PRN IVP Nausea & Vomiting 06/29/19 18:00 07/16/19 17:59 Polyethylene Glycol (Miralax) 17 gm BEDTIME ORAL 06/29/19 21:00 07/17/19 20:59 07/10/19 21:00 Benigno Betancourt MD July 11, 2019 10:30
--- NOTE | 2019-07-11 10:45 | NUR ---
CASE MANAGEMENT:REVIEW SI:COVID-19 PNEUMONIA~NOW NEGATIVE X2 (07/04 & 07/05) HEP C. CHOLELITHIASIS. ELEVATED LFT's 97.2 84 20 117/81 94% 2L NC WBC 12.1 NA+ 151 CL-111 BG 148 AST/ALT 130/176 ALKP 218 IS:NORVASC NGT QD ASA NGT QD LOVENOX SUBQ QD TOPROL XL NGT QD \: 3E MED SURG STATUS DCP: GADIEL GAN WHEN STABLE PLAN: DC PLANNING
--- NOTE | 2019-07-11 11:24 | Hematology/Onc Progress Note ---
Assessment/Plan Assessment/Plan Assessment and Plan: # Lukocytosis --- multiple etiologies could be related to underlying liver disease, medication-induced, infection versus viral syndrome, in this case likely due to COVID19+++, and Hep C+ --> peripheral smear has been ordered and does not show significant abnormalities --> Medications have been reviewed --> Continue to monitor for improvement, trend cbc --> Hep panel and HIV have been ordered--> cw hep C++ exposure --> US abd ordered to r/o cirrhosis and hepatosplenomegaly --> none noted --> reverse isolation if ANC is <2000 --> Give neupogen if ANC <1000 --> 06/22 off abx, repeat covidneg -> HAS IMPROVED SINCE ADMISSION --> wbc 7-->14 # Suspected 2019 novel coronavirus infection --> per id, on plaq, abx --> iso --> pulm eval recs noted --> 06/22 off abx per id # Pneumonia --> on abx --> oxygen prn --> per id # Elevated troponin ==> nstemi per cards --> diuresis prn # Elevated LFTs --> likely hep C related # Hep c --> vl and outpatient gi # Dysphagia with dec weight loss --> recommend gtube --> gtube has been placed --> as per gi # Dvt ppx lovenox sq The timing of this note does not necessarily reflect the time of the patient was seen. Greatly appreciate consultation. Subjective HEENT: Denies: no symptoms, eye pain, blurred vision, tearing, double vision, ear pain, ear discharge, nose pain, nose congestion, throat pain, throat swelling, mouth pain, mouth swelling, other Cardiovascular: Denies: no symptoms, chest pain, edema, irregular heart rate, lightheadedness, palpitations, syncope, other Respiratory: Denies: no symptoms, cough, shortness of breath, SOB with excertion, SOB at rest, sputum, wheezing, other Gastrointestinal/Abdominal: Denies: no symptoms, abdomen distended, abdominal pain, black stools, tarry stools, blood in stool, constipated, diarrhea, difficulty swallowing, nausea, poor appetite, poor fluid intake, rectal bleeding , vomiting, other Genitourinary: Denies: no symptoms, burning, discharge, frequency, flank pain, hematuria, incontinence, pain, urgency, other Neurologic/Psychiatric: Denies: no symptoms, anxiety, depressed, emotional problems, headache, numbness, paresthesia, pre-existing deficit, seizure, tingling, tremors, weakness, other Allergies: Coded Allergies: No Known Allergies (Unverified , 06/15/19) Subjective 06/20 confused, breathing is better, on iso for covid 19, wbc improved 06/21 labs better, no bleeding, no f/c, meds noted, hcv+ 06/22 restraints, off abx, repeat covid pending, nc 06/23 no bleeding, labs noted, no night sweats, cbc reviewed, on 2l nc 06/25 remains on glucerna, have ordered for labs, no bleeding 06/26 remains on 2lnc as for covid infection, for iso 06/27 is on 2lnc, no bleeding, labs reviewed, no night sweats 06/28 labs have improved, no bleeding or chills, imaging noted 06/29 plan for peg when off iso, no bleeding, dw gi 06/30 with nc on board, ngt is running, no bleeding noted 07/02 labs are noted, no bleeding, meds reviewed 07/03 labs reviewed, seen by gi and renal, no bleeding, meds noted, with ngt 07/04 nc functional, with ngt in place, no night sweats, meds noted 07/05 confused, restraints, isolation, no acute distress 07/06 remains mostly confused with nc, no bleeding, meds noted 07/07 remains confused, no fc, no bleeding 07/09 reamins confused, with wrist restraints, wbc elev 07/10 no major envets, no bleeding, labs noted, dw rn Objective Objective Current Medications Medications (Trade) Dose Ordered Sig/Kaylan Route PRN Reason Start Time Stop Time Status Last Admin Dose Admin Acetaminophen (Tylenol) 500 mg Q6H PRN ORAL For Pain 06/29/19 18:15 07/16/19 00:14 07/01/19 09:11 Acetaminophen (Tylenol) 650 mg Q6H PRN ORAL For Headache 06/29/19 18:00 07/16/19 17:59 Albuterol Sulfate (Proventil MDI) 2 puff Q6H PRN INH Shortness of Breath 06/29/19 18:00 09/14/19 17:59 Amlodipine Besylate (Norvasc) 5 mg DAILY NG 06/30/19 09:00 07/23/19 11:59 07/10/19 10:23 Aspirin (ASA) 81 mg DAILY ORAL 06/30/19 09:00 07/31/19 08:59 07/11/19 08:53 Docusate Sodium (Colace) 100 mg DAILY ORAL 06/30/19 09:00 07/16/19 08:59 07/11/19 08:54 Enoxaparin Sodium (Lovenox) 40 mg DAILY SUBQ 06/30/19 09:00 09/14/19 08:59 07/11/19 08:56 Hydralazine HCl (Apresoline) 25 mg Q4H PRN ORAL SBP > 160mmHg 06/29/19 17:30 09/20/19 13:29 Metoprolol Succinate (Toprol XL) 25 mg DAILY ORAL 06/30/19 09:00 09/17/19 19:14 07/11/19 08:54 Mirtazapine (Remeron) 15 mg BEDTIME ORAL 06/29/19 21:00 09/19/19 20:59 07/10/19 21:00 Ondansetron HCl (Zofran) 4 mg Q6H PRN IVP Nausea & Vomiting 06/29/19 18:00 07/16/19 17:59 Polyethylene Glycol (Miralax) 17 gm BEDTIME ORAL 06/29/19 21:00 07/17/19 20:59 07/10/19 21:00 Last 24 Hour Vital Signs Date Time Temp Pulse Resp B/P (MAP) Pulse Ox O2 Delivery O2 Flow Rate FiO2 07/11/19 09:00 Nasal Cannula 2.0 07/11/19 08:54 84 117/81 07/11/19 08:54 84 117/81 07/11/19 08:05 94 Nasal Cannula 2.0 28 07/11/19 08:00 97.2 84 20 117/81 (93) 94 07/11/19 04:00 98.2 18 20 118/76 (90) 95 07/11/19 00:00 98.0 79 20 115/73 (87) 94 07/10/19 21:00 Nasal Cannula 2.0 07/10/19 20:00 98.1 82 18 121/71 (88) 95 07/10/19 16:00 98.5 83 18 121/72 (88) 97 07/10/19 11:48 98.6 63 20 109/70 (83) 97 63 63 07/10/19 10:23 82 129/82 07/10/19 10:22 82 129/82 07/10/19 09:00 Nasal Cannula 2.0 07/10/19 08:00 97.7 82 17 129/82 (98) 97 82 82 07/10/19 04:00 98.1 75 18 140/75 (96) 96 07/10/19 00:00 97.8 86 18 117/75 (89) 95 07/09/19 21:00 Nasal Cannula 2.0 07/09/19 20:00 98.6 85 19 130/84 (99) 95 77 79 07/09/19 16:00 98.0 85 19 129/72 (91) 96 79 79 07/09/19 12:00 98.6 79 19 127/77 (94) 95 79 79 Intake and Output 07/10/19 07/11/19 19:00 07:00 Intake Total 55 ml Balance 55 ml Tube Feeding 55 ml # Voids 2 2 # Bowel Movements 1 1 Labs Test 07/10/19 05:00 07/11/19 06:00 White Blood Count 14.1 K/UL (4.8-10.8) 12.1 K/UL (4.8-10.8) Red Blood Count 4.83 M/UL (4.70-6.10) 4.53 M/UL (4.70-6.10) Hemoglobin 14.7 G/DL (14.2-18.0) 14.0 G/DL (14.2-18.0) Hematocrit 44.4 % (42.0-52.0) 41.5 % (42.0-52.0) Mean Corpuscular Volume 92 FL (80-99) 92 FL (80-99) Mean Corpuscular Hemoglobin 30.5 PG (27.0-31.0) 30.9 PG (27.0-31.0) Mean Corpuscular Hemoglobin Concent 33.2 G/DL (32.0-36.0) 33.7 G/DL (32.0-36.0) Red Cell Distribution Width 13.8 % (11.6-14.8) 13.1 % (11.6-14.8) Platelet Count 368 K/UL (150-450) 335 K/UL (150-450) Mean Platelet Volume 6.0 FL (6.5-10.1) 6.2 FL (6.5-10.1) Neutrophils (%) (Auto) 76.8 % (45.0-75.0) 75.3 % (45.0-75.0) Lymphocytes (%) (Auto) 16.4 % (20.0-45.0) 16.4 % (20.0-45.0) Monocytes (%) (Auto) 5.7 % (1.0-10.0) 5.7 % (1.0-10.0) Eosinophils (%) (Auto) 0.4 % (0.0-3.0) 1.9 % (0.0-3.0) Basophils (%) (Auto) 0.6 % (0.0-2.0) 0.7 % (0.0-2.0) Sodium Level 151 MMOL/L (136-145) 151 MMOL/L (136-145) Potassium Level 3.8 MMOL/L (3.5-5.1) 3.8 MMOL/L (3.5-5.1) Chloride Level 111 MMOL/L (98-107) 111 MMOL/L (98-107) Carbon Dioxide Level 34 MMOL/L (21-32) 34 MMOL/L (21-32) Anion Gap 6 mmol/L (5-15) 6 mmol/L (5-15) Blood Urea Nitrogen 28 mg/dL (7-18) 25 mg/dL (7-18) Creatinine 0.9 MG/DL (0.55-1.30) 0.8 MG/DL (0.55-1.30) Estimat Glomerular Filtration Rate > 60 mL/min (>60) > 60 mL/min (>60) Glucose Level 144 MG/DL (74-106) 148 MG/DL (74-106) Uric Acid 4.6 MG/DL (2.6-7.2) Calcium Level 8.9 MG/DL (8.5-10.1) 8.9 MG/DL (8.5-10.1) Phosphorus Level 3.3 MG/DL (2.5-4.9) Magnesium Level 2.4 MG/DL (1.8-2.4) Total Bilirubin 0.4 MG/DL (0.2-1.0) 0.3 MG/DL (0.2-1.0) Aspartate Amino Transf (AST/SGOT) 134 U/L (15-37) 130 U/L (15-37) Alanine Aminotransferase (ALT/SGPT) 207 U/L (12-78) 176 U/L (12-78) Alkaline Phosphatase 235 U/L (46-116) 218 U/L (46-116) C-Reactive Protein, Quantitative 9.4 mg/dL (0.00-0.90) Total Protein 9.1 G/DL (6.4-8.2) 8.7 G/DL (6.4-8.2) Albumin 2.3 G/DL (3.4-5.0) 2.2 G/DL (3.4-5.0) Globulin 6.8 g/dL 6.5 g/dL Albumin/Globulin Ratio 0.3 (1.0-2.7) 0.3 (1.0-2.7) Height (Feet): 5 Height (Inches): 2 Weight (Pounds): 133 Objective Physical Exam General: Awake + confused, no acute distress HEENT: NC/AT. EOMI. Cardiovascular: RRR. S1 and S2 normal. No murmur appreciated Resp: Mild tachypnea, normal work of breathing. On 2 L nasal cannula+ Abdomen: Abdomen is soft, nondistended. Nt ++peg tune Skin: Intact. No abrasions, laceration MSK: Normal tone and bulk. Moving all extremities Neuro: Awake and somewhat confused. Poor historian Geraldo Galvez MD July 11, 2019 11:24
--- NOTE | 2019-07-11 11:37 | Nephrology Progress Note ---
Assessment/Plan Problem List: (1) Dehydration (2) Electrolyte imbalance (3) Elevated LFTs (4) HTN (hypertension) (5) Suspected 2019 novel coronavirus infection Assessment Electrolyte imbalance Dehydration and free water deficit Pneumonia suspected COVID-19 infection Elevated troponin Dementia Cholelithiasis and elevated liver enzymes BPH Hypertension Plan D5W 1 L today for hypernatremia Continue rest Had PEG placed July 07 No blood work today will check tomorrow Medication list reviewed Positive for COVID-19, but it converted to negative normal saline 500 cc bolus as needed Watch serum potassium and electrolytes Add Norvasc Hydralazine as needed for blood pressure over 160 systolic Monitor electrolyte Continue per consultants Urine analysis ordered as none is available since admission Per orders Subjective ROS Limited/Unobtainable: No Constitutional: Reports: malaise Objective Objective Last 24 Hour Vital Signs Date Time Temp Pulse Resp B/P (MAP) Pulse Ox O2 Delivery O2 Flow Rate FiO2 07/11/19 09:00 Nasal Cannula 2.0 07/11/19 08:54 84 117/81 07/11/19 08:54 84 117/81 07/11/19 08:05 94 Nasal Cannula 2.0 28 07/11/19 08:00 97.2 84 20 117/81 (93) 94 07/11/19 04:00 98.2 18 20 118/76 (90) 95 07/11/19 00:00 98.0 79 20 115/73 (87) 94 07/10/19 21:00 Nasal Cannula 2.0 07/10/19 20:00 98.1 82 18 121/71 (88) 95 07/10/19 16:00 98.5 83 18 121/72 (88) 97 07/10/19 11:48 98.6 63 20 109/70 (83) 97 63 63 Intake and Output 07/10/19 07/11/19 19:00 07:00 Intake Total 55 ml Balance 55 ml Tube Feeding 55 ml # Voids 2 2 # Bowel Movements 1 1 Laboratory Tests 07/11/19 06:00: White Blood Count 12.1H, Red Blood Count 4.53L, Hemoglobin 14.0L, Hematocrit 41.5L, Mean Corpuscular Volume 92, Mean Corpuscular Hemoglobin 30.9, Mean Corpuscular Hemoglobin Concent 33.7, Red Cell Distribution Width 13.1, Platelet Count 335, Mean Platelet Volume 6.2L, Neutrophils (%) (Auto) 75.3H, Lymphocytes (%) (Auto) 16.4L, Monocytes (%) (Auto) 5.7, Eosinophils (%) (Auto) 1.9, Basophils (%) (Auto) 0.7, Sodium Level 151H, Potassium Level 3.8, Chloride Level 111H, Carbon Dioxide Level 34H, Anion Gap 6, Blood Urea Nitrogen 25H, Creatinine 0.8, Estimat Glomerular Filtration Rate > 60, Glucose Level 148H, Calcium Level 8.9, Total Bilirubin 0.3, Aspartate Amino Transf (AST/SGOT) 130H, Alanine Aminotransferase (ALT/SGPT) 176H, Alkaline Phosphatase 218H, Total Protein 8.7H, Albumin 2.2L, Globulin 6.5, Albumin/Globulin Ratio 0.3L Height (Feet): 5 Height (Inches): 2 Weight (Pounds): 133 General Appearance: no apparent distress Cardiovascular: normal rate Respiratory/Chest: decreased breath sounds Abdomen: soft, other - PEG in place Objective no change Drew Gonzalez MD July 11, 2019 11:37
[2019-07-11 12:00] VITALS: BP 114/67
[2019-07-11 16:00] VITALS: BP 130/70
--- NOTE | 2019-07-11 19:35 | NUR ---
HAND-OFF: Report given to MANOLO Crouch. Round was made. Pt in stable condition.
[2019-07-11 20:00] VITALS: BP 134/82
--- NOTE | 2019-07-11 20:08 | NUR ---
NURSE NOTES: Received report form Lizzy /Guillermo RN , rounds made , pt awake , i.v site on L arm 22G , iv fluids running , patent and asymptomatic , Gtube feeding Glucerna going at 55 Ml /hr, no s/s distress , soft restraints on bilateral arms, with s/s good circulation bed in low locked position , call light with in reach , will continue with plan of care .
[2019-07-11] MEDS: Miralax 17gm pkt ORAL SCH (21:05)
--- NOTE | 2019-07-11 21:29 | General Progress Note ---
Assessment/Plan Problem List: (1) Elevated troponin ICD Codes: R79.89 - Other specified abnormal findings of blood chemistry SNOMED: 012130873, 794889366, [id number] (2) Elevated LFTs ICD Codes: R79.89 - Other specified abnormal findings of blood chemistry SNOMED: 721102516, 398143675, 026280883 (3) Pneumonia ICD Codes: J18.9 - Pneumonia, unspecified organism SNOMED: 923129457, 659992242, 362066260 (4) Suspected 2019 novel coronavirus infection ICD Codes: R68.89 - Other general symptoms and signs SNOMED: 063565790 Status: progressing, unchanged Assessment/Plan: repeat covid came negative azotemia s/p peg malnurtion elevated troponin hypernatremia persistent leukocytosis Subjective ROS Limited/Unobtainable: Yes Allergies: Coded Allergies: No Known Allergies (Unverified , 06/15/19) Objective Last 24 Hour Vital Signs Date Time Temp Pulse Resp B/P (MAP) Pulse Ox O2 Delivery O2 Flow Rate FiO2 07/11/19 20:00 98.0 84 18 134/82 (99) 98 07/11/19 19:45 98 Nasal Cannula 2.0 28 07/11/19 16:00 98.1 76 20 130/70 (90) 96 07/11/19 12:00 97.3 78 20 114/67 (83) 94 07/11/19 09:00 Nasal Cannula 2.0 07/11/19 08:54 84 117/81 07/11/19 08:54 84 117/81 07/11/19 08:05 94 Nasal Cannula 2.0 28 07/11/19 08:00 97.2 84 20 117/81 (93) 94 07/11/19 04:00 98.2 18 20 118/76 (90) 95 07/11/19 00:00 98.0 79 20 115/73 (87) 94 Intake and Output 07/10/19 07/11/19 19:00 07:00 Intake Total 55 ml Balance 55 ml Tube Feeding 55 ml # Voids 2 2 # Bowel Movements 1 1 Laboratory Tests 07/11/19 06:00: White Blood Count 12.1H, Red Blood Count 4.53L, Hemoglobin 14.0L, Hematocrit 41.5L, Mean Corpuscular Volume 92, Mean Corpuscular Hemoglobin 30.9, Mean Corpuscular Hemoglobin Concent 33.7, Red Cell Distribution Width 13.1, Platelet Count 335, Mean Platelet Volume 6.2L, Neutrophils (%) (Auto) 75.3H, Lymphocytes (%) (Auto) 16.4L, Monocytes (%) (Auto) 5.7, Eosinophils (%) (Auto) 1.9, Basophils (%) (Auto) 0.7, Sodium Level 151H, Potassium Level 3.8, Chloride Level 111H, Carbon Dioxide Level 34H, Anion Gap 6, Blood Urea Nitrogen 25H, Creatinine 0.8, Estimat Glomerular Filtration Rate > 60, Glucose Level 148H, Calcium Level 8.9, Total Bilirubin 0.3, Aspartate Amino Transf (AST/SGOT) 130H, Alanine Aminotransferase (ALT/SGPT) 176H, Alkaline Phosphatase 218H, Total Protein 8.7H, Albumin 2.2L, Globulin 6.5, Albumin/Globulin Ratio 0.3L Height (Feet): 5 Height (Inches): 2 Weight (Pounds): 133 Gorge Malhotra MD July 11, 2019 21:29
--- NOTE | 2019-07-11 23:23 | Pulmonology Progress Note ---
Subjective ROS Limited/Unobtainable: No Constitutional: Denies: fever Respiratory: Reports: shortness of breath Allergies: Coded Allergies: No Known Allergies (Unverified , 06/15/19) All Systems: reviewed and negative except above Objective Last 24 Hour Vital Signs Date Time Temp Pulse Resp B/P (MAP) Pulse Ox O2 Delivery O2 Flow Rate FiO2 07/11/19 20:00 98.0 84 18 134/82 (99) 98 07/11/19 19:45 98 Nasal Cannula 2.0 28 07/11/19 16:00 98.1 76 20 130/70 (90) 96 07/11/19 12:00 97.3 78 20 114/67 (83) 94 07/11/19 09:00 Nasal Cannula 2.0 07/11/19 08:54 84 117/81 07/11/19 08:54 84 117/81 07/11/19 08:05 94 Nasal Cannula 2.0 28 07/11/19 08:00 97.2 84 20 117/81 (93) 94 07/11/19 04:00 98.2 18 20 118/76 (90) 95 07/11/19 00:00 98.0 79 20 115/73 (87) 94 Intake and Output 07/10/19 07/11/19 19:00 07:00 Intake Total 55 ml Balance 55 ml Tube Feeding 55 ml # Voids 2 2 # Bowel Movements 1 1 General Appearance: no acute distress HEENT: mucous membranes moist Abdomen: other - GT feeding Extremities: no edema Neurologic/Psychiatric: other - sleeping Laboratory Tests 07/11/19 06:00: White Blood Count 12.1H, Red Blood Count 4.53L, Hemoglobin 14.0L, Hematocrit 41.5L, Mean Corpuscular Volume 92, Mean Corpuscular Hemoglobin 30.9, Mean Corpuscular Hemoglobin Concent 33.7, Red Cell Distribution Width 13.1, Platelet Count 335, Mean Platelet Volume 6.2L, Neutrophils (%) (Auto) 75.3H, Lymphocytes (%) (Auto) 16.4L, Monocytes (%) (Auto) 5.7, Eosinophils (%) (Auto) 1.9, Basophils (%) (Auto) 0.7, Sodium Level 151H, Potassium Level 3.8, Chloride Level 111H, Carbon Dioxide Level 34H, Anion Gap 6, Blood Urea Nitrogen 25H, Creatinine 0.8, Estimat Glomerular Filtration Rate > 60, Glucose Level 148H, Calcium Level 8.9, Total Bilirubin 0.3, Aspartate Amino Transf (AST/SGOT) 130H, Alanine Aminotransferase (ALT/SGPT) 176H, Alkaline Phosphatase 218H, Total Protein 8.7H, Albumin 2.2L, Globulin 6.5, Albumin/Globulin Ratio 0.3L Current Medications Medications (Trade) Dose Ordered Sig/Kaylan Route PRN Reason Start Time Stop Time Status Last Admin Dose Admin Acetaminophen (Tylenol) 500 mg Q6H PRN ORAL For Pain 06/29/19 18:15 07/16/19 00:14 07/01/19 09:11 Acetaminophen (Tylenol) 650 mg Q6H PRN ORAL For Headache 06/29/19 18:00 07/16/19 17:59 Albuterol Sulfate (Proventil MDI) 2 puff Q6H PRN INH Shortness of Breath 06/29/19 18:00 09/14/19 17:59 Amlodipine Besylate (Norvasc) 2.5 mg DAILY NG 07/12/19 09:00 07/23/19 11:59 Aspirin (ASA) 81 mg DAILY ORAL 06/30/19 09:00 07/31/19 08:59 07/11/19 08:53 Dextrose 1,000 ml @ 100 mls/hr Q10H IV 07/11/19 11:45 08/10/19 11:44 07/11/19 21:05 Docusate Sodium (Colace) 100 mg DAILY ORAL 06/30/19 09:00 07/16/19 08:59 07/11/19 08:54 Enoxaparin Sodium (Lovenox) 40 mg DAILY SUBQ 06/30/19 09:00 09/14/19 08:59 07/11/19 08:56 Hydralazine HCl (Apresoline) 25 mg Q4H PRN ORAL SBP > 160mmHg 06/29/19 17:30 09/20/19 13:29 Metoprolol Succinate (Toprol XL) 25 mg DAILY ORAL 06/30/19 09:00 09/17/19 19:14 07/11/19 08:54 Mirtazapine (Remeron) 15 mg BEDTIME ORAL 06/29/19 21:00 09/19/19 20:59 07/11/19 21:05 Ondansetron HCl (Zofran) 4 mg Q6H PRN IVP Nausea & Vomiting 06/29/19 18:00 07/16/19 17:59 Polyethylene Glycol (Miralax) 17 gm BEDTIME ORAL 06/29/19 21:00 07/17/19 20:59 07/11/19 21:05 Assessment/Plan Assessment/Plan Pulmonary Progress Note HPI: Patient is a 88-year-old male history of Dementia, Congestive Heart Failure , admitted from custodial facility with Pneumonia, COVID 19 positive, noted to have fever and shortness of breath, chest congestion and tightness. Stable O2 requirements - 2L NC, stable Pulmonary Status clinically, Covid isolation DC previously as 2x negative tests Sp G tube, tolerating feeds Cholelithiasis, elevated transaminases Seen earlier PMH: Dementia, Congestive Heart Failure Social Hx: Halfway Resident FHx: NC Allergies: No Known Allergies All Other Systems: limited - AMS Physical Exam Vital signs noted General: Awake and somewhat confused, no acute distress HEENT: NC/AT. EOMI. Cardiovascular: RRR. S1 and S2 normal. No murmur appreciated Resp: Mild tachypnea, normal work of breathing. On 2 L nasal cannula. No cough Abdomen: Abdomen is soft, nondistended. Nontender. G tube Skin: Intact. No abrasions, laceration or rash noted MSK: Normal tone and bulk. Moving all extremities. No obvious deformity. Neuro: Awake and somewhat confused. Poor historian. No focal signs Impression: Pneumonia S/P 2019 novel coronavirus infection S/p G tube Elevated troponin, myonecrosis suspected Hepatitis C Elevated LFTs Lymphopenia Dementia Congestive Heart Failure Halfway Resident Plan G tube feeding O2 PRN Albuterol MDI PRN PPX - Lovenox ASA Monitor labs [employer]OR [employer]ELOP[employer] meds Laboratory Tests noted EKG Rate: normal Rhythm: NSR ST Segments: no acute changes Sinus rhythm, left axis deviation. Occasional PACs. T wave inversions, no ST segment changes Chest X-Ray: Consolidations in the left lower lobe may represent pneumonia. No effusion. Some improvement . Andrew Diaz MD July 11, 2019 23:23
[2019-07-12] VITALS: BP 131/85
--- NOTE | 2019-07-12 00:01 | Psych Consult Progress Note ---
Psychiatry Progress Note Psychiatry Progress Note Medications Current Medications Medications (Trade) Dose Ordered Sig/Kaylan Route PRN Reason Start Time Stop Time Status Last Admin Dose Admin Acetaminophen (Tylenol) 500 mg Q6H PRN ORAL For Pain 06/29/19 18:15 07/16/19 00:14 07/01/19 09:11 Acetaminophen (Tylenol) 650 mg Q6H PRN ORAL For Headache 06/29/19 18:00 07/16/19 17:59 Albuterol Sulfate (Proventil MDI) 2 puff Q6H PRN INH Shortness of Breath 06/29/19 18:00 09/14/19 17:59 Amlodipine Besylate (Norvasc) 2.5 mg DAILY NG 07/12/19 09:00 07/23/19 11:59 Aspirin (ASA) 81 mg DAILY ORAL 06/30/19 09:00 07/31/19 08:59 07/11/19 08:53 Dextrose 1,000 ml @ 100 mls/hr Q10H IV 07/11/19 11:45 08/10/19 11:44 07/11/19 21:05 Docusate Sodium (Colace) 100 mg DAILY ORAL 06/30/19 09:00 07/16/19 08:59 07/11/19 08:54 Enoxaparin Sodium (Lovenox) 40 mg DAILY SUBQ 06/30/19 09:00 09/14/19 08:59 07/11/19 08:56 Hydralazine HCl (Apresoline) 25 mg Q4H PRN ORAL SBP > 160mmHg 06/29/19 17:30 09/20/19 13:29 Metoprolol Succinate (Toprol XL) 25 mg DAILY ORAL 06/30/19 09:00 09/17/19 19:14 07/11/19 08:54 Mirtazapine (Remeron) 15 mg BEDTIME ORAL 06/29/19 21:00 09/19/19 20:59 07/11/19 21:05 Ondansetron HCl (Zofran) 4 mg Q6H PRN IVP Nausea & Vomiting 06/29/19 18:00 07/16/19 17:59 Polyethylene Glycol (Miralax) 17 gm BEDTIME ORAL 06/29/19 21:00 07/17/19 20:59 07/11/19 21:05 Allergies: Coded Allergies: No Known Allergies (Unverified , 06/15/19) Objective Data Height (Feet): 5 Height (Inches): 2 Weight (Pounds): 133 Assessment/Plan Status: progressing, unchanged Assessment/Plan: PLAN: 1. Remeron 15 mg at night. 3.nemanda was dced 4. Discussed with the nurse. Karlo Santiago MD July 12, 2019 00:01
[2019-07-12 04:00] VITALS: BP 130/67
--- NOTE | 2019-07-12 06:48 | General Progress Note ---
Assessment/Plan Status: progressing, unchanged Assessment/Plan: 1. History of dementia. 2. CHF. 3. Hypertension. 4. BPH. 5. Constipation. 6. elevated LFTS 7. AMI 8. gallstones Assessment/Plan 1. History of dementia. 2. CHF. 3. Hypertension. 4. BPH. 5. Constipation. 6. elevated LFTS 7. AMI 8. 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>>> outpatient treatment [facility] repeat labs in am s/p PEG placement, on GTF Last COVID test neg Subjective ROS Limited/Unobtainable: No Allergies: Coded Allergies: No Known Allergies (Unverified , 06/15/19) Objective Last 24 Hour Vital Signs Date Time Temp Pulse Resp B/P (MAP) Pulse Ox O2 Delivery O2 Flow Rate FiO2 07/12/19 04:00 98.1 87 18 130/67 (88) 95 07/12/19 00:00 97.6 84 18 131/85 (100) 98 07/11/19 21:00 Nasal Cannula 2.0 07/11/19 20:00 98.0 84 18 134/82 (99) 98 07/11/19 19:45 98 Nasal Cannula 2.0 28 07/11/19 16:00 98.1 76 20 130/70 (90) 96 07/11/19 12:00 97.3 78 20 114/67 (83) 94 07/11/19 09:00 Nasal Cannula 2.0 07/11/19 08:54 84 117/81 07/11/19 08:54 84 117/81 07/11/19 08:05 94 Nasal Cannula 2.0 28 07/11/19 08:00 97.2 84 20 117/81 (93) 94 Intake and Output 07/11/19 07/12/19 19:00 07:00 Intake Total 600 ml 55 ml Balance 600 ml 55 ml IV Total 600 ml Tube Feeding 55 ml # Voids 5 # Bowel Movements 2 2 Height (Feet): 5 Height (Inches): 2 Weight (Pounds): 133 General Appearance: lethargic EENT: normal ENT inspection Neck: supple Cardiovascular: normal rate Respiratory/Chest: decreased breath sounds Abdomen: normal bowel sounds, non tender, soft Extremities: non-tender Vosoghi,Perry MD July 12, 2019 06:48
--- NOTE | 2019-07-12 07:07 | NUR ---
HAND-OFF: Report given to Lizzy andrade RN, pt stable.
--- NOTE | 2019-07-12 07:45 | NUR ---
NURSE NOTES: Received report form Miko RN, Pt asleep in bed. No SOB, breathing even and unlabored, i.v site on L arm intact and patent infusing IVF. Gtube feeding Glucerna going at 55 Ml /hr, soft restraints on bilateral arms, with s/s good circulation, no skin breakdown. bed in lowest position and locked. Bed alarm on. call light with in reach , will continue with plan of care .
[2019-07-12 08:00] VITALS: BP 129/70
[2019-07-12] MEDS: Aspirin Baby 81mg ORAL SCH (08:46)
[2019-07-12] MEDS: Docusate 100mg cap ORAL SCH (08:47)
[2019-07-12] MEDS: Metoprolol Succinate XL 25mg tab ORAL SCH (08:47)
[2019-07-12] MEDS: Enoxaparin 40mg Inj SUBQ SCH (08:48)
--- NOTE | 2019-07-12 09:43 | Nephrology Progress Note ---
Assessment/Plan Problem List: (1) Dehydration (2) Electrolyte imbalance (3) Elevated LFTs (4) HTN (hypertension) (5) Suspected 2019 novel coronavirus infection Assessment Electrolyte imbalance Dehydration and free water deficit Pneumonia suspected COVID-19 infection Elevated troponin Dementia Cholelithiasis and elevated liver enzymes BPH Hypertension Plan D5W for hypernatremia as needed Had PEG placed July 07 No blood work today will check tomorrow Medication list reviewed Positive for COVID-19, but it converted to negative normal saline 500 cc bolus as needed Watch serum potassium and electrolytes Add Norvasc Hydralazine as needed for blood pressure over 160 systolic Monitor electrolyte Continue per consultants Urine analysis ordered as none is available since admission Per orders Subjective ROS Limited/Unobtainable: No Constitutional: Reports: malaise Objective Objective Last 24 Hour Vital Signs Date Time Temp Pulse Resp B/P (MAP) Pulse Ox O2 Delivery O2 Flow Rate FiO2 07/12/19 08:47 83 129/70 07/12/19 08:47 83 129/70 07/12/19 08:00 97.1 83 20 129/70 (89) 95 07/12/19 04:00 98.1 87 18 130/67 (88) 95 07/12/19 00:00 97.6 84 18 131/85 (100) 98 07/11/19 21:00 Nasal Cannula 2.0 07/11/19 20:00 98.0 84 18 134/82 (99) 98 07/11/19 19:45 98 Nasal Cannula 2.0 28 07/11/19 16:00 98.1 76 20 130/70 (90) 96 07/11/19 12:00 97.3 78 20 114/67 (83) 94 Intake and Output 07/11/19 07/12/19 19:00 07:00 Intake Total 600 ml 55 ml Balance 600 ml 55 ml IV Total 600 ml Tube Feeding 55 ml # Voids 5 # Bowel Movements 2 2 No labs done today Height (Feet): 5 Height (Inches): 2 Weight (Pounds): 133 General Appearance: no apparent distress, lethargic Cardiovascular: tachycardia - Rate mid 80s Respiratory/Chest: decreased breath sounds Abdomen: other - GT feeding in process Objective no change Drew Gonzalez MD July 12, 2019 09:43
--- NOTE | 2019-07-12 10:42 | Hematology/Onc Progress Note ---
Assessment/Plan Assessment/Plan Assessment and Plan: # Lukocytosis --- multiple etiologies could be related to underlying liver disease, medication-induced, infection versus viral syndrome, in this case likely due to COVID19+++, and Hep C+ --> peripheral smear has been ordered and does not show significant abnormalities --> Medications have been reviewed --> Continue to monitor for improvement, trend cbc --> Hep panel and HIV have been ordered--> cw hep C++ exposure --> US abd ordered to r/o cirrhosis and hepatosplenomegaly --> none noted --> reverse isolation if ANC is <2000 --> Give neupogen if ANC <1000 --> 06/22 off abx, repeat covidneg -> HAS IMPROVED SINCE ADMISSION --> wbc 7-->14->12 # Suspected 2019 novel coronavirus infection --> per id, on plaq, abx --> iso --> pulm eval recs noted --> 06/22 off abx per id # Pneumonia --> on abx --> oxygen prn --> per id # Elevated troponin ==> nstemi per cards --> diuresis prn # Elevated LFTs --> likely hep C related # Hep c --> vl and outpatient gi # Dysphagia with dec weight loss --> recommend gtube --> gtube has been placed --> as per gi # Dvt ppx lovenox sq The timing of this note does not necessarily reflect the time of the patient was seen. Greatly appreciate consultation. Subjective Constitutional: Denies: no symptoms, chills, fever, malaise, weakness, other HEENT: Denies: no symptoms, eye pain, blurred vision, tearing, double vision, ear pain, ear discharge, nose pain, nose congestion, throat pain, throat swelling, mouth pain, mouth swelling, other Cardiovascular: Denies: no symptoms, chest pain, edema, irregular heart rate, lightheadedness, palpitations, syncope, other Respiratory: Denies: no symptoms, cough, shortness of breath, SOB with excertion, SOB at rest, sputum, wheezing, other Genitourinary: Denies: no symptoms, burning, discharge, frequency, flank pain, hematuria, incontinence, pain, urgency, other Neurologic/Psychiatric: Denies: no symptoms, anxiety, depressed, emotional problems, headache, numbness, paresthesia, pre-existing deficit, seizure, tingling, tremors, weakness, other Allergies: Coded Allergies: No Known Allergies (Unverified , 06/15/19) Subjective 06/20 confused, breathing is better, on iso for covid 19, wbc improved 06/21 labs better, no bleeding, no f/c, meds noted, hcv+ 06/22 restraints, off abx, repeat covid pending, nc 06/23 no bleeding, labs noted, no night sweats, cbc reviewed, on 2l nc 06/25 remains on glucerna, have ordered for labs, no bleeding 06/26 remains on 2lnc as for covid infection, for iso 06/27 is on 2lnc, no bleeding, labs reviewed, no night sweats 06/28 labs have improved, no bleeding or chills, imaging noted 06/29 plan for peg when off iso, no bleeding, dw gi 06/30 with nc on board, ngt is running, no bleeding noted 07/02 labs are noted, no bleeding, meds reviewed 07/03 labs reviewed, seen by gi and renal, no bleeding, meds noted, with ngt 07/04 nc functional, with ngt in place, no night sweats, meds noted 07/05 confused, restraints, isolation, no acute distress 07/06 remains mostly confused with nc, no bleeding, meds noted 07/07 remains confused, no fc, no bleeding 07/09 reamins confused, with wrist restraints, wbc elev 07/10 no major envets, no bleeding, labs noted, dw rn 07/11 no major changes, asleep with gtube, no bleeding Objective Objective Current Medications Medications (Trade) Dose Ordered Sig/Kaylan Route PRN Reason Start Time Stop Time Status Last Admin Dose Admin Acetaminophen (Tylenol) 500 mg Q6H PRN ORAL For Pain 06/29/19 18:15 07/16/19 00:14 07/01/19 09:11 Acetaminophen (Tylenol) 650 mg Q6H PRN ORAL For Headache 06/29/19 18:00 07/16/19 17:59 Albuterol Sulfate (Proventil MDI) 2 puff Q6H PRN INH Shortness of Breath 06/29/19 18:00 09/14/19 17:59 Amlodipine Besylate (Norvasc) 2.5 mg DAILY NG 07/12/19 09:00 07/23/19 11:59 07/12/19 08:47 Aspirin (ASA) 81 mg DAILY ORAL 06/30/19 09:00 07/31/19 08:59 07/12/19 08:46 Dextrose 1,000 ml @ 100 mls/hr Q10H IV 07/11/19 11:45 08/10/19 11:44 07/12/19 06:46 Docusate Sodium (Colace) 100 mg DAILY ORAL 06/30/19 09:00 07/16/19 08:59 07/12/19 08:47 Enoxaparin Sodium (Lovenox) 40 mg DAILY SUBQ 06/30/19 09:00 09/14/19 08:59 07/12/19 08:48 Hydralazine HCl (Apresoline) 25 mg Q4H PRN ORAL SBP > 160mmHg 06/29/19 17:30 09/20/19 13:29 Metoprolol Succinate (Toprol XL) 25 mg DAILY ORAL 06/30/19 09:00 09/17/19 19:14 07/12/19 08:47 Mirtazapine (Remeron) 15 mg BEDTIME ORAL 06/29/19 21:00 09/19/19 20:59 07/11/19 21:05 Ondansetron HCl (Zofran) 4 mg Q6H PRN IVP Nausea & Vomiting 06/29/19 18:00 07/16/19 17:59 Polyethylene Glycol (Miralax) 17 gm BEDTIME ORAL 06/29/19 21:00 07/17/19 20:59 07/11/19 21:05 Last 24 Hour Vital Signs Date Time Temp Pulse Resp B/P (MAP) Pulse Ox O2 Delivery O2 Flow Rate FiO2 07/12/19 09:00 Nasal Cannula 2.0 07/12/19 08:47 83 129/70 07/12/19 08:47 83 129/70 07/12/19 08:00 97.1 83 20 129/70 (89) 95 07/12/19 04:00 98.1 87 18 130/67 (88) 95 07/12/19 00:00 97.6 84 18 131/85 (100) 98 07/11/19 21:00 Nasal Cannula 2.0 07/11/19 20:00 98.0 84 18 134/82 (99) 98 07/11/19 19:45 98 Nasal Cannula 2.0 28 07/11/19 16:00 98.1 76 20 130/70 (90) 96 07/11/19 12:00 97.3 78 20 114/67 (83) 94 07/11/19 09:00 Nasal Cannula 2.0 07/11/19 08:54 84 117/81 07/11/19 08:54 84 117/81 07/11/19 08:05 94 Nasal Cannula 2.0 28 07/11/19 08:00 97.2 84 20 117/81 (93) 94 07/11/19 04:00 98.2 18 20 118/76 (90) 95 07/11/19 00:00 98.0 79 20 115/73 (87) 94 07/10/19 21:00 Nasal Cannula 2.0 07/10/19 20:00 98.1 82 18 121/71 (88) 95 07/10/19 16:00 98.5 83 18 121/72 (88) 97 07/10/19 11:48 98.6 63 20 109/70 (83) 97 63 63 Intake and Output 07/11/19 07/12/19 19:00 07:00 Intake Total 600 ml 55 ml Balance 600 ml 55 ml IV Total 600 ml Tube Feeding 55 ml # Voids 5 # Bowel Movements 2 2 Labs Test 07/10/19 05:00 07/11/19 06:00 White Blood Count 14.1 K/UL (4.8-10.8) 12.1 K/UL (4.8-10.8) Red Blood Count 4.83 M/UL (4.70-6.10) 4.53 M/UL (4.70-6.10) Hemoglobin 14.7 G/DL (14.2-18.0) 14.0 G/DL (14.2-18.0) Hematocrit 44.4 % (42.0-52.0) 41.5 % (42.0-52.0) Mean Corpuscular Volume 92 FL (80-99) 92 FL (80-99) Mean Corpuscular Hemoglobin 30.5 PG (27.0-31.0) 30.9 PG (27.0-31.0) Mean Corpuscular Hemoglobin Concent 33.2 G/DL (32.0-36.0) 33.7 G/DL (32.0-36.0) Red Cell Distribution Width 13.8 % (11.6-14.8) 13.1 % (11.6-14.8) Platelet Count 368 K/UL (150-450) 335 K/UL (150-450) Mean Platelet Volume 6.0 FL (6.5-10.1) 6.2 FL (6.5-10.1) Neutrophils (%) (Auto) 76.8 % (45.0-75.0) 75.3 % (45.0-75.0) Lymphocytes (%) (Auto) 16.4 % (20.0-45.0) 16.4 % (20.0-45.0) Monocytes (%) (Auto) 5.7 % (1.0-10.0) 5.7 % (1.0-10.0) Eosinophils (%) (Auto) 0.4 % (0.0-3.0) 1.9 % (0.0-3.0) Basophils (%) (Auto) 0.6 % (0.0-2.0) 0.7 % (0.0-2.0) Sodium Level 151 MMOL/L (136-145) 151 MMOL/L (136-145) Potassium Level 3.8 MMOL/L (3.5-5.1) 3.8 MMOL/L (3.5-5.1) Chloride Level 111 MMOL/L (98-107) 111 MMOL/L (98-107) Carbon Dioxide Level 34 MMOL/L (21-32) 34 MMOL/L (21-32) Anion Gap 6 mmol/L (5-15) 6 mmol/L (5-15) Blood Urea Nitrogen 28 mg/dL (7-18) 25 mg/dL (7-18) Creatinine 0.9 MG/DL (0.55-1.30) 0.8 MG/DL (0.55-1.30) Estimat Glomerular Filtration Rate > 60 mL/min (>60) > 60 mL/min (>60) Glucose Level 144 MG/DL (74-106) 148 MG/DL (74-106) Uric Acid 4.6 MG/DL (2.6-7.2) Calcium Level 8.9 MG/DL (8.5-10.1) 8.9 MG/DL (8.5-10.1) Phosphorus Level 3.3 MG/DL (2.5-4.9) Magnesium Level 2.4 MG/DL (1.8-2.4) Total Bilirubin 0.4 MG/DL (0.2-1.0) 0.3 MG/DL (0.2-1.0) Aspartate Amino Transf (AST/SGOT) 134 U/L (15-37) 130 U/L (15-37) Alanine Aminotransferase (ALT/SGPT) 207 U/L (12-78) 176 U/L (12-78) Alkaline Phosphatase 235 U/L (46-116) 218 U/L (46-116) C-Reactive Protein, Quantitative 9.4 mg/dL (0.00-0.90) Total Protein 9.1 G/DL (6.4-8.2) 8.7 G/DL (6.4-8.2) Albumin 2.3 G/DL (3.4-5.0) 2.2 G/DL (3.4-5.0) Globulin 6.8 g/dL 6.5 g/dL Albumin/Globulin Ratio 0.3 (1.0-2.7) 0.3 (1.0-2.7) Height (Feet): 5 Height (Inches): 2 Weight (Pounds): 133 Objective Physical Exam General: Awake + confused, no acute distress HEENT: NC/AT. EOMI. Cardiovascular: RRR. S1 and S2 normal. No murmur appreciated Resp: Mild tachypnea, normal work of breathing. On 2 L nasal cannula+ Abdomen: Abdomen is soft, nondistended. Nt ++peg tune Skin: Intact. No abrasions, laceration MSK: Normal tone and bulk. Moving all extremities Neuro: Awake and somewhat confused. Poor historian Geraldo Galvez MD July 12, 2019 10:42
--- NOTE | 2019-07-12 11:40 | NUR ---
NURSE NOTES: Spoke to regarding patient and new order received. Order read back and carried out.
[2019-07-12 11:46] VITALS: BP 107/59
--- NOTE | 2019-07-12 13:44 | Infectious Diseases Prog Note ---
Assessment/Plan Assessment/Plan IMPRESSION: [id number] Pneumonia, Positive on : 06/14, 06/20, 06/22, 06/25, 06/28 Indeterminate: 07/02 Negative: 07/04 & 07/05 Cholelithiasis and elevated transaminase level, acidosis, dementia with behavioral problem. Dysphagia Hepatitis C s/p GT placement Leukocytosis improving RECOMMENDATION: Observe off antibiotic Agree with discharge Subjective ROS Limited/Unobtainable: Yes Neurologic: Reports: confusion, other - on restraint Allergies: Coded Allergies: No Known Allergies (Unverified , 06/15/19) Objective Vital Signs Last 24 Hour Vital Signs Date Time Temp Pulse Resp B/P (MAP) Pulse Ox O2 Delivery O2 Flow Rate FiO2 07/12/19 11:46 97.9 76 18 107/59 (75) 97 76 76 07/12/19 09:00 Nasal Cannula 2.0 07/12/19 08:47 83 129/70 07/12/19 08:47 83 129/70 07/12/19 08:00 97.1 83 20 129/70 (89) 95 07/12/19 04:00 98.1 87 18 130/67 (88) 95 07/12/19 00:00 97.6 84 18 131/85 (100) 98 07/11/19 21:00 Nasal Cannula 2.0 07/11/19 20:00 98.0 84 18 134/82 (99) 98 07/11/19 19:45 98 Nasal Cannula 2.0 28 07/11/19 16:00 98.1 76 20 130/70 (90) 96 Height (Feet): 5 Height (Inches): 2 Weight (Pounds): 133 General Appearance: no acute distress HEENT: mucous membranes moist Respiratory/Chest: lungs clear Cardiovascular: normal rate Abdomen: soft, non tender Neurologic/Psychiatric: alert, responsive, disoriented Current Medications Medications (Trade) Dose Ordered Sig/Kaylan Route PRN Reason Start Time Stop Time Status Last Admin Dose Admin Acetaminophen (Tylenol) 500 mg Q6H PRN ORAL For Pain 06/29/19 18:15 07/16/19 00:14 07/01/19 09:11 Acetaminophen (Tylenol) 650 mg Q6H PRN ORAL For Headache 06/29/19 18:00 07/16/19 17:59 Albuterol Sulfate (Proventil MDI) 2 puff Q6H PRN INH Shortness of Breath 06/29/19 18:00 09/14/19 17:59 Amlodipine Besylate (Norvasc) 2.5 mg DAILY NG 07/12/19 09:00 07/23/19 11:59 07/12/19 08:47 Aspirin (ASA) 81 mg DAILY ORAL 06/30/19 09:00 07/31/19 08:59 07/12/19 08:46 Dextrose 1,000 ml @ 100 mls/hr Q10H IV 07/11/19 11:45 08/10/19 11:44 07/12/19 06:46 Docusate Sodium (Colace) 100 mg DAILY ORAL 06/30/19 09:00 07/16/19 08:59 07/12/19 08:47 Enoxaparin Sodium (Lovenox) 40 mg DAILY SUBQ 06/30/19 09:00 09/14/19 08:59 07/12/19 08:48 Hydralazine HCl (Apresoline) 25 mg Q4H PRN ORAL SBP > 160mmHg 06/29/19 17:30 09/20/19 13:29 Metoprolol Succinate (Toprol XL) 25 mg DAILY ORAL 06/30/19 09:00 09/17/19 19:14 07/12/19 08:47 Mirtazapine (Remeron) 15 mg BEDTIME ORAL 06/29/19 21:00 09/19/19 20:59 07/11/19 21:05 Ondansetron HCl (Zofran) 4 mg Q6H PRN IVP Nausea & Vomiting 06/29/19 18:00 07/16/19 17:59 Polyethylene Glycol (Miralax) 17 gm BEDTIME ORAL 06/29/19 21:00 07/17/19 20:59 07/11/19 21:05 Benigno Betancourt MD July 12, 2019 13:44
[2019-07-12 16:00] VITALS: BP 111/67
--- NOTE | 2019-07-12 18:30 | NUR ---
NURSE NOTES: Pt in stable condition. Report given to MANOLO Coleman from [facility] to transfer back to facility. No belongings upon admission. IV and ID band removed. Transportation came and discharge packet and report given. Checked vitals. O2 sat 93% at 2L/min via NC. No respiratory distress noted. BP and HR are within baseline. No change of mental status. MD aware and confirm to Ok to discharge. Pt transferred via gurney by transporter.
--- NOTE | 2019-07-12 22:53 | Psych Consult Progress Note ---
Psychiatry Progress Note Psychiatry Progress Note Neurological/Psychiatric: Reports: anxiety, depressed, emotional problems Allergies: Coded Allergies: No Known Allergies (Unverified , 06/15/19) Objective Data Height (Feet): 5 Height (Inches): 2 Weight (Pounds): 133 General Appearance: WD/WN, no apparent distress, alert Additional Comments: Alert, oriented times self. Mood is neutral. Affect is flat. Thought process is concrete. Thought content, no suicidal or homicidal ideation. Cognition is impaired. Insight and judgment is impaired. Assessment/Plan Imogene I: ASSESSMENT: Dementia with behavior disturbance. Status: progressing, unchanged Assessment/Plan: PLAN: 1. Remeron 15 mg at night. 3.nemanda was dced 4. Discussed with the nurse. Karlo Santiago MD July 12, 2019 22:53
--- NOTE | 2019-07-12 23:25 | Pulmonology Progress Note ---
Subjective ROS Limited/Unobtainable: Yes Constitutional: Denies: fever Respiratory: Reports: shortness of breath Allergies: Coded Allergies: No Known Allergies (Unverified , 06/15/19) All Systems: reviewed and negative except above Objective Last 24 Hour Vital Signs Date Time Temp Pulse Resp B/P (MAP) Pulse Ox O2 Delivery O2 Flow Rate FiO2 07/12/19 16:00 97.1 83 20 111/67 (82) 97 76 76 07/12/19 11:46 97.9 76 18 107/59 (75) 97 76 76 07/12/19 09:00 Nasal Cannula 2.0 07/12/19 08:47 83 129/70 07/12/19 08:47 83 129/70 07/12/19 08:00 97.1 83 20 129/70 (89) 95 07/12/19 04:00 98.1 87 18 130/67 (88) 95 07/12/19 00:00 97.6 84 18 131/85 (100) 98 Intake and Output 07/11/19 07/12/19 19:00 07:00 Intake Total 600 ml 55 ml Balance 600 ml 55 ml IV Total 600 ml Tube Feeding 55 ml # Voids 5 # Bowel Movements 2 2 General Appearance: no acute distress HEENT: mucous membranes moist Abdomen: soft, non tender Extremities: no edema Neurologic/Psychiatric: alert, responsive, disoriented Assessment/Plan Assessment/Plan Pulmonary Progress Note HPI: Patient is a 88-year-old male history of Dementia, Congestive Heart Failure , admitted from group home facility with Pneumonia, COVID 19 positive, noted to have fever and shortness of breath, chest congestion and tightness. Stable O2 requirements - 2L NC, stable Pulmonary Status clinically, Covid isolation DC previously as 2x negative tests Sp G tube, tolerating feeds Cholelithiasis, elevated transaminases Seen earlier PMH: Dementia, Congestive Heart Failure Social Hx: Senior Care Resident FHx: NC Allergies: No Known Allergies All Other Systems: limited - AMS Physical Exam Vital signs noted General: Awake and somewhat confused, no acute distress HEENT: NC/AT. EOMI. Cardiovascular: RRR. S1 and S2 normal. No murmur appreciated Resp: Mild tachypnea, normal work of breathing. On 2 L nasal cannula. No cough Abdomen: Abdomen is soft, nondistended. Nontender. G tube Skin: Intact. No abrasions, laceration or rash noted MSK: Normal tone and bulk. Moving all extremities. No obvious deformity. Neuro: Awake and somewhat confused. Poor historian. No focal signs Impression: Pneumonia S/P 2019 novel coronavirus infection S/p G tube Elevated troponin, myonecrosis suspected Hepatitis C Elevated LFTs Lymphopenia Dementia Congestive Heart Failure Senior Care Resident Plan G tube feeding O2 PRN Albuterol MDI PRN PPX - Lovenox ASA Monitor labs MATE RELIEF meds Laboratory Tests noted EKG Rate: normal Rhythm: NSR ST Segments: no acute changes Sinus rhythm, left axis deviation. Occasional PACs. T wave inversions, no ST segment changes Chest X-Ray: Consolidations in the left lower lobe may represent pneumonia. No effusion. Some improvement . Andrew Diaz MD July 12, 2019 23:25
--- NOTE | 2019-07-13 16:36 | Discharge Summary ---
Discharge Summary Discharge Summary _ DATE OF ADMISSION: 06/15/2019 DATE OF DISCHARGE: 07/12/2019 DISCHARGED BY: Dr Malhotra REASON FOR ADMISSION: 88 years old male, with past medical history of CHF, dementia, resident of care home facility, was sent for evaluation due to fever and shortness of breath. Paramedics also reported labored breathing and hypoxia . Patient required supplemental oxygen. Upon evaluation laboratory work-up revealed no leukocytosis,stable hemoglobin, hematocrit and lymphopenia 12.1%. Stable electrolytes and renal parameters. Glucose 202. Lactic acid 3.1. AST 171, ALT 129. Total CK 460. Lipase 215. Pro BNP 1467, troponin 0.152. EKG revealed sinus rhythm with left axis deviation and occasional PAC , no ST segment changes. Chest x-ray revealed peripheral reticular infiltrates in the left lung, likely inflammatory versus chronic. Patient was swabbed for COVID-19 , started on the IV fluids , empiric antibiotics , kept on oxygen and admitted to isolation room for possible COVID- 19 infection. CONSULTANTS: vineyard supervisor Dr. Acosta pulmonary Dr Diaz ID specialist Dr. Benigno Poe GI specialist Dr. Quiroga digital project manager Dr. Gonzalez pitching coach/oncologist Dr. Galvez psychiatrist [facility] COURSE: Patient admitted to isolation room. Supplemental oxygen provided and titrated to keep pulse oximetry above 92%. Pulmonary toilet provided. Blood cultures were negative. SARS-CoV-2 by PCR on 06/14 , 06/20, 06/22, 06/25, 06/28 was detected. Patient was kept in isoaltion. SARS-CoV-2 by PCR on 07/02 was indeterminate abnormal. Blood cultures were negative. Serial troponin trending down ; last troponin 0 0.097. EKG revealed no acute ischemic changes . Echocardiogram demonstrated preserved ejection fraction of 65% with mild left ventricular hypertrophy. No evidence of wall motion abnormality. No evidence of pericardial effusion. Per vineyard supervisor, patient probably had NSTEMI or elevated troponin could be secondary to myonecrosis due to congestive heart failure. Antiplatelet therapy with aspirin provided. Beta-blockade continued. Blood pressure was managed with calcium channel julio cesar and beta-julio cesar. Hydralazine was on board as needed for blood pressure spikes. DVT prophylaxis provided. Per vineyard supervisor, dyspnea was most likely due to combination of COVID-19 pneumonia in addition to acute congestive heart failure.. Patient initially was on Lasix with close monitoring of volumes and cardiorenal parameters. Pro BNP trended down to 263 from initial 1467. Lasix stopped. Patient completed treatment for COVID pneumonia. Leukocytosis trending down. No fevers. Patient was cleared for transfer to a care home facility with COVID 19 precautions. Patient undergone bedside swallow evaluation . Patient refused nectar thick liquid trials. Patient was at high risk for silent aspiration. Patient subsequently undergone upper endoscopy with PEG placement on 07/07 . Patient was found to have diffuse gastritis. G tube site care provided. Strict aspiration /reflux precautions maintained. Tube feeding formula with goal rate provided as per thermal spray operator recommendation. Patient was able to tolerate tube feeding. LFT were closely monitored. Transaminases was most likely due to COVID infection and hepatitis C. Hepatitis panel revealed HCV RNA positive. GI specialist recommended outpatient follow-up for hepatitis C treatment. Abdominal ultrasound revealed gallbladder filled with stones. Negative Ignacio sign . LFT trending down. Bowel regimen instituted. Renal parameters and electrolytes were closely monitored. Electrolytes further corrected as needed , and nephrotoxic's were avoided. Per psychiatrist, patient had dementia with behavioral disturbances. Psychiatric medication regimen was optimized as per psychiatrist. Patient clinically stabilized and was ready for transfer back to care home facility for continuation of care. FINAL DIAGNOSES: Confirmed COVID-19 infection Pneumonia secondary to COVID-19 infection Elevated troponin, probably NSTEMI Acute congestive heart failure with pEF Dysphagia status post G-tube Transaminitis Hepatitis C infection Cholelithiasis Dementia with behavioral disturbances Leukocytosis- improving Dehydration and free water deficit Electrolyte imbalance DISCHARGE MEDICATIONS: See Medication Reconciliation list. DISCHARGE INSTRUCTIONS: Patient was discharged to the care home facility. Follow up with medical doctor at the facility. I have been assigned to dictate discharge summary for this account. I was not involved in the patient's management. Isabella Huntley NP July 13, 2019 16:36
== END 2019-07-12 18:35 | DRG 177 ==
LOC: EDBD 16:29 → EMR 17:08 → 2E 17:25 → EDBEDREQ 23:28 → 2E 06-26 14:59 → 4E 06-29 16:41 → 3E 07-09 09:38
PROC: 0DH63UZ Insertion of Feeding Device into Stomach, Percutaneous Approach (ICD-10-PCS; principal; 2019-07-08 13:00)
DX: U07.1 COVID-19 (principal); J12.89 Other viral pneumonia; I21.4 Non-ST elevation (NSTEMI) myocardial infarction; I50.31 Acute diastolic (congestive) heart failure; F03.91 Unspecified dementia, unspecified severity, with behavioral disturbance; E87.2 Acidosis; E46 Unspecified protein-calorie malnutrition; F03.90 Unspecified dementia, unspecified severity, without behavioral disturbance, psychotic disturbance, mood disturbance, and anxiety; R13.10 Dysphagia, unspecified; R74.0 Nonspecific elevation of levels of transaminase and lactic acid dehydrogenase [LDH]; B19.20 Unspecified viral hepatitis C without hepatic coma; K80.20 Calculus of gallbladder without cholecystitis without obstruction; E86.0 Dehydration; E87.8 Other disorders of electrolyte and fluid balance, not elsewhere classified; N40.0 Benign prostatic hyperplasia without lower urinary tract symptoms; R09.02 Hypoxemia; Z79.82 Long term (current) use of aspirin; K59.00 Constipation, unspecified; I11.0 Hypertensive heart disease with heart failure
CPT/HCPCS: 36415; 36600; 71045; 74018; 76700; 80048; 80053; 80061; 80076; 81001; 82550; 82553; 82607; 82728; 82746; 82947; 82962; 82977; 83036; 83605; 83615; 83690; 83735; 83880; 84100; 84443; 84484; 84550; 85007; 85025; 85379; 86140; 86705; 86709; 86803; 87040; 87081; 87340; 87522; 87635; 92610; 93005; 93306; 94003; 94150; 94664; 96365; 96368; 99285; J7030; J8499

== ENCOUNTER 2019-11-18 00:35 | Emergency (ER) | payer MEDICARE, MEDICAID ==
[~2019-11-18] VITALS: Ht 157.5 cm; Wt 58.1 kg
[~2019-11-18 00:35] MED LIST: DOCUSATE SODIU100 MG ORAL; DONEPEZIL HCL5 M2 ORAL; NAMENDA10 MG ORAL
[2019-11-18 00:40] VITALS: BP 115/75
--- NOTE | 2019-11-18 00:57 | Emergency Room Report ---
History of Present Illness General Chief Complaint: Malfunctioning Gastric Tube Source: Patient, Medical Record Present Illness HPI Is an 89-year-old patient from [facility]. He presents with chief complaint of G-tube dislodgment. This patient has a feeding tube and per [facility] staff, he pulled it out. They placed another one in. Patient was sent here for confirmation of tube placement. Patient has no complaint. No injury. Allergies: Coded Allergies: No Known Allergies (Unverified , 06/15/19) COVID-19 Screening Contact w/high risk pt: No Recent Travel to affected area: No Experienced COVID-19 symptoms?: No COVID-19 symptoms experienced: Fever (T>100.4F or >38C), Shortness of Breath, Flu-Like Symptoms COVID-19 Testing performed STEEL SASH ERECTOR: No Patient History Past Medical History: see triage record, old chart reviewed Past Surgical History: other Pertinent Family History: none Immunizations: other Reviewed Nursing Documentation: PMH: Agreed; PSxH: Agreed Nursing Documentation-PMH Hx Cardiac Problems: Yes Hx Cancer: No Hx Gastrointestinal Problems: No Hx Neurological Problems: Yes Hx Dementia: Yes Review of Systems Eye: Denies: eye pain, blurred vision ENT: Denies: ear pain, nose congestion, throat swelling Respiratory: Denies: cough, shortness of breath Cardiovascular: Denies: chest pain, palpitations Gastrointestinal: Denies: abdominal pain, diarrhea, nausea, vomiting Musculoskeletal: Denies: back pain, joint pain Skin: Denies: rash Neurological: Denies: headache, numbness Endocrine: Denies: increased thirst, increased urine Hematologic/Lymphatic: Denies: easy bruising All Other Systems: negative except mentioned in HPI Physical Exam Vital Signs Date Time Temp Pulse Resp B/P (MAP) Pulse Ox O2 Delivery O2 Flow Rate FiO2 11/18/19 00:32 97.3 67 18 115/75 (88) 97 Room Air Vitals normal Sp02 EP Interpretation: reviewed, normal General Appearance: well appearing, no apparent distress, alert Head: normocephalic, atraumatic Eyes: bilateral eye PERRL, bilateral eye EOMI ENT: hearing grossly normal, normal pharynx Neck: full range of motion, supple, no meningismus Respiratory: chest non-tender, lungs clear, normal breath sounds Cardiovascular #1: regular rate, rhythm, no murmur Gastrointestinal: normal bowel sounds, non tender, no mass, no organomegaly, no bruit, non-distended, other - G-tube is intact. There is tube feeding in the catheter. Musculoskeletal: back normal, normal range of motion Neurologic: other - Left sided weakness Psychiatric: mood/affect normal Medical Decision Making Diagnostic Impression: Primary Impression: Dislodged gastrostomy tube ER Course With tube dislodgment. It appeared to be intact. I flushed that without any problem. Aspirated back without any problem. We will get an x-ray with Gastrografin for confirmation. No evidence of extravasation. Other X-Ray Diagnostic Results Other X-Ray Diagnostic Results : X-Ray ordered: KUB # of Views/Limited Vs Complete: 1 View Indication: Pain EP Interpretation: Yes Interpretation: no dislocation, no soft tissue swelling, no fractures, other - No extravasation. Impression: Other - G-tube in good position Electronically Signed by: Peter Patricio MD Last Vital Signs Date Time Temp Pulse Resp B/P (MAP) Pulse Ox O2 Delivery O2 Flow Rate FiO2 11/18/19 00:32 97.3 67 18 115/75 (88) 97 Room Air Status: improved Disposition: SNF Condition: Stable Patient Instructions: Gastrostomy Tube Home Guide, Adult Additional Instructions: Follow-up with your doctor as needed. Return if symptoms worsen. Peter Patricio MD Nov 18, 2019 00:57
[2019-11-18 01:25] VITALS: BP 108/66
[2019-11-18 01:30] VITALS: BP 108/66
--- NOTE | 2019-11-18 11:43 | Diagnostic Imaging Report ---
EXAM: XRAY Abdomen 1v HISTORY: Abdominal discomfort. G-tube dislodgment and replacement. COMPARISON: 07/24/2019. TECHNIQUE: 2 frontal views of the abdomen obtained. FINDINGS: There is a nonobstructed bowel gas pattern. Contrast identified in the small bowel and colon down to the rectum. There is no G-tube identified. No definite pathologic calcifications identified. There is no sign of free air. No acute abnormality noted of the visualized osseous structures. IMPRESSION: NONOBSTRUCTIVE BOWEL GAS PATTERN. RESIDUAL CONTRAST IDENTIFIED IN SMALL LARGE BOWEL. THERE IS NO DISTINCT G-TUBE IDENTIFIED IN THE [id number].
== END 2019-11-18 01:30 ==
LOC: EDBD 00:35 → EMR 00:58
DX: Z43.1 Encounter for attention to gastrostomy (principal); I51.9 Heart disease, unspecified; F03.90 Unspecified dementia, unspecified severity, without behavioral disturbance, psychotic disturbance, mood disturbance, and anxiety
CPT/HCPCS: 74018; 99283